=== PATIENT | female | born 1945 | race Caucasian/White ===

== ENCOUNTER 2018-04-16 19:03 | Inpatient (IN) | payer MEDICARE, OTHER, SELFPAY ==
[2018-04-16 19:04] VITALS: BP 109/64; PULSE 99; RESP 16; TEMP 37.3; O2SAT 95; BMI 28.6
--- NOTE | 2018-04-16 19:17 | CT_ITS ---
STUDY: CT ABDOMEN AND PELVIS WITHOUT CONTRAST REASON FOR EXAM: Female, 72 years old. ABD PAIN, N/V, Fever, pt STARTED DIET OF JUST EGGS RECENTLY HX:C-DIFF,PE,SKIN Cancer, back Surgery, bladder REPAIR RADIATION DOSAGE (If Supplied By Facility): CTDIvol = ( 9.38 ) mGy, DLP = ( 417.00 ) mGycm Individualized dose optimization techniques were used for this CT. TECHNIQUE: Transaxial images were obtained from the dome of the diaphragm to the symphysis pubis without oral contrast, and without intravenous contrast. Sagittal and coronal images were reconstructed. COMPARISON: None. FINDINGS: The visualized lung bases are unremarkable. The visualized portions of the heart are within normal limits. Normal liver. Normal gallbladder and extrahepatic biliary system. Normal spleen. Normal pancreas. Normal bilateral adrenal glands. There is mild right hydro nephro ureter. An obstructing stone is not seen. Domonique pelvic cysts of the left kidney. There is a small hiatal hernia. Normal small intestine. Normal colon. There is non-visualization of the appendix. There are calcifications of the abdominal aorta and vascular structures. This is consistent for atherosclerotic disease. There is no abdominal aortic aneurysm. Normal inferior vena cava. Subcentimeter mesenteric lymph nodes. Normal urinary bladder. Normal visualized uterus. There is a small umbilical hernia containing fat. There are degenerative changes of the osseous structures. There is scoliosis of the lumbar spine. Loss of intervertebral disc height at L5-S1. Vacuum disc phenomenon at L5-S1. Spinal fixation hardware is noted. There are laminectomy changes in the spine. This is consistent for previous surgery. CT/Abdomen/Pelvis without Cont IMPRESSION: There is mild right hydro nephro ureter. An obstructing stone is not seen. Question recent passage of a stone. Domonique pelvic cysts of the left kidney. Post surgical changes of the lumbar spine. Other findings as above. Electronically Signed: Buddy Patterson MD at 20:52 EDT , Service support ,
--- NOTE | 2018-04-16 19:18 | RAD_ITS ---
STUDY: X-RAY CHEST REASON FOR EXAM: Female, 72 years old. COUGH TECHNIQUE: Single frontal view of the chest. COMPARISON: November 08, 2015 FINDINGS: Chronic appearing increased interstitial lung markings. There is no demonstrated pleural abnormality. Normal heart size. Normal mediastinum and chano. Normal visualized pulmonary arteries. There is atherosclerotic calcification of the aortic arch with tortuosity. There are diffuse degenerative changes of the visualized thoracic spine. There is degenerative osteoarthritis of the bilateral shoulders. There is no demonstrated abnormality of the visualized soft tissue structures of the upper abdomen. RAD/Chest 1 View (Portable) IMPRESSION: There are no acute findings. Electronically Signed: Buddy Patterson MD at 20:04 EDT , Service support ,
[2018-04-16] MEDS: 0.9% Normal Saline 1,000 ML 1000 ML IV (19:49)
[2018-04-16 20:05] LABS: Absolute Lymphocyte Count 0.56 X10^3/ul (0.83-4.51); Absolute Neutrophil Count 5.7 X10^3/uL (2.0-7.7); Basophil# 0.01 X10^3/uL; Basophil% 0.2 % (0-1); Eosinophil# 0.08 X10^3/uL; Eosinophils% 1.2 % (0-5); Hematocrit 37.6 % (37-47); Hemoglobin 12.6 g/dl (12.0-15.0); Lymphocyte # 0.56 X10^3/ul (4.0); Lymphocyte % 8.7 % (19-41); Mean Corp Hgb Conc 33.5 g/gl (32-36); Mean Corpuscular Hgb 28.8 pg (27.0-32.0); Mean Platelet Vol. 10.6 fl (6.2-12.0); Monocyte# 0.08 X10^3/uL; Monocyte% 1.2 % (0-10); Neutrophil # 5.73 X10^3/uL (2.7-7.7); Neutrophil % 88.5 % (47-70); Platelet Count 133 K/mm3 (150-450); RBC Distribution Width CV 14.7 % (11.6-14.6); RBC Distribution Width SD 46.3 fl (35.1-43.9); Red Blood Count 4.37 M/mm3 (4.2-5.4); White Blood Count 6.5 K/mm3 (4.4-11.0)
[2018-04-16 20:08] LABS: Differential Indicated SCAN CRITERIA MET; POSITIVE COUNT NO; POSITIVE DIFFERENTIAL YES; POSITIVE MORPHOLOGY NO
[2018-04-16 20:11] LABS: ALB/GLOB Ratio 0.9 RATIO (0.9-2.4); AST(SGOT) 26 U/L (15-37); Alanine Aminotransfer ALT/SGPT 25 U/L (13-56); Albumin, Serum 3.2 g/dL (3.2-5.0); Alkaline Phosphatase 76 U/L (45-117); Anion Gap 6 (5-15); BUN 21 mg/dL (7-18); BUN/Creat Ratio 25.5 RATIO (10-20); Calcium,Total 8.3 mg/dL (8.5-10.1); Chloride 105 mmol/L (98-107); Creatinine, Serum 0.82 mg/dL (0.55-1.02); EST Glomerular Filtration Rate 72 mL/min (>60); Est Glom Filt Rate - Afr Amer 87 mL/min (>60); Estimated Creatinine Clearance 49.79 ml/min; Globulin 3.6 g/dL (2.2-4.2); Glucose 98 mg/dL (74-106); Lipase 158 U/L (73-393); Potassium 3.8 mmol/L (3.5-5.1); Protein, Total 6.8 g/dL (6.4-8.2); Sodium Level 139 mmol/L (136-145)
[2018-04-16 20:23] LABS: Lactic Acid 1.2 mmol/L (0.4-2.0)
[2018-04-16 20:31] LABS: Platelet Estimate SLT DEC (ADEQ); Red Cell Morphology NORM C+C NORMAL (NORM C&C)
[2018-04-16 20:42] LABS: Mucous, Urine 0 SEEN /hpf (<or=2+); Red Blood Cells-Urine 0 SEEN /hpf (0-5)
[2018-04-16 20:50] LABS: Color, Urine Yellow (Yellow); Glucose, Dipstick Normal (Normal); Ketone-Dipstick Negative (Negative); Leukocyte Esterase-Dipstick 500 /ul (Negative); Nitrite-Dipstick Positive (Negative); Occult Blood-Urine 250 /ul (Negative); Protein-Dipstick 100 mg/dl (Negative); Urine Bilirubin Dipstick Negative (Negative); Urine Clarity Cloudy (Clear); Urine Urobilinogen Normal (Normal)
[2018-04-16 20:58] LABS: Bacteria 2+ /hpf (None Seen); Squamous Epithelial Cells - UA 0-5 SEEN /hpf (5-10); White Blood Cells >100 SEEN /hpf (0-5)
[2018-04-16] MEDS: Ceftriaxone 1 GM/50 ML BAG IV (21:30)
--- NOTE | 2018-04-16 21:33 | ED.DCSUM_ITS ---
- ER Visit Summary Date of Service: 04/16/18 Chief Complaint: [Is weakness and vomiting] History of Present Illness: The patient is a 72 F [presents to the emergency department with complaint of not feeling well for several days. Patient states that she started vomiting approximately 4 PM today and she threw up about 3 times. She has had chills and Reiger's today as well. Patient had some abdominal pain yesterday but that seems to have mostly resolved today. Patient complains of fever. She denied any urinary symptoms. Patient has had a slight cough. Cough is been nonproductive.] Physical Examination: [HEENT-PERRLA, EOMI. Cranial nerves II through XII grossly intact. TMs clear. Mucous membranes moist. No adenopathy. Cardiovascular-regular rate and rhythm without murmur or ectopy Lungs-clear to auscultation, chest wall stable without crepitus or subcu emphysema Abdomen-normoactive bowel sounds, soft. Patient tender right lower quadrant and suprapubic region. Patient also with some mild CVA tenderness on the right. Extremities-intact ?4, normal range of motion, normal pulses, atraumatic] Test Results: [CBC with differential obtained showing a 6.5, hemoglobin 12.6, hematocrit 38, platelets 133. Patient had 88% segmented neutrophils. Chemistries were normal. Liver enzymes were normal. Lactate was normal at 1.2. Urinalysis was positive for UTI. Chest x-ray showed nothing acute.] CT scan of the abdomen pelvis showed mild right hydronephrosis and hydroureter but no kidney stone noted. Emergency Department Course and Treatment: [Patient was started on Rocephin 1 g IV. Patient was given a liter normal same fluid bolus.] Treatment Plan: [And will be to admit for IV antibiotics as well as hydration.] Disposition: [Admit] Impression: [UTI/pyelonephritis.] This note was generated with [employer] dictation software. It may contain incorrect words, spelling, and punctuation that were not noted in review of the chart prior to signing ED Disposition - Plan for ED Patient: Chief Complaint: Nausea/Vomiting Referrals: Lilo Grullon MD [Primary Care Provider] -
--- NOTE | 2018-04-16 21:46 | PCM.HP.STD ---
Problem List (1) Pyelonephritis Status: Acute (2) Rheumatoid arthritis Status: Chronic Qualifiers: Rheumatoid arthritis location: unspecified site Rheumatoid factor presence: unspecified presence Qualified Code(s): M06.9 - Rheumatoid arthritis, unspecified (3) Chronic back pain Status: Chronic Qualifiers: Back pain location: back pain in unspecified location Back pain laterality: unspecified Qualified Code(s): M54.9 - Dorsalgia, unspecified; G89.29 - Other chronic pain (4) Osteoarthritis Status: Chronic Qualifiers: Osteoarthritis location: unspecified site Osteoarthritis type: unspecified Qualified Code(s): M19.90 - Unspecified osteoarthritis, unspecified site (5) History of Clostridium difficile Status: Chronic (6) Sciatic neuropathy Status: Chronic Qualifiers: Laterality: unspecified laterality Qualified Code(s): G57.00 - Lesion of sciatic nerve, unspecified lower limb (7) Lumbar spondylosis with myelopathy Status: Chronic (8) History of pulmonary embolism Status: Chronic (9) Anxiety and depression Status: Chronic History of Present Illness Date of Admission: 04/16/18 Chief Complaint: N/V, malaise, suprapubic tenderness, F/C The patient is a 72 y/o F w/ PMHx: RA, OA, Anxiety and Depression, Chronic Back Pain, History of Provoked PE who presents to the [facility] ED on 04/16/18 with history of ongoing malaise, fatigue, weakness in addition to suprapubic tenderness and abdominal discomfort x 2 days with onset on day of presentation additionally fevers, chills, nausea with emesis in addition to moderate R flank discomfort. In the ED workup included T 99.1, heart rate 99, BP 109/64, respiratory rate 16, 95% on room air, BC with WBC 6.5, hemoglobin 12.6, platelet 133 with left shift, CMP with BUN 21/creatinine 0.82, lactic acid 1.2, urinalysis concerning for urinary tract infection with pending urine culture per ED in addition to blood culture x2 pending per ED, chest x-ray with no acute findings, CT abdomen pelvis with mild right hydro-nephro ureter with no obstructing stone identified, possibly recently passed stone, peripelvic cyst of the left kidney, postsurgical changes in the lumbar spine. In the ED patient administered normal saline, Zofran, Rocephin. Past Medical History Past Medical History (Chronic Problems): Chronic Problems (Last Updated 03/09/18 @ 07:15 by Lawanda Last MD) Rheumatoid arthritis (Chronic) History of pulmonary embolism (Chronic) Anxiety and depression (Chronic) Chronic back pain (Chronic) Osteoarthritis (Chronic) History of Clostridium difficile (Chronic) Sciatic neuropathy (Chronic) Lumbar spondylosis with myelopathy (Chronic) Compression fx, lumbar spine (Chronic) Medical History: Medical History (Last Updated 03/09/18 @ 07:15 by Lawanda Last MD) Internal hemorrhoid (Acute) K64.8 Rheumatoid arthritis M06.9 Erosion of suburethral sling (Ruled-out) T83.712A Allergies hydrocodone bitartrate [From Vicodin] Adverse Reaction (Verified 04/16/18 19:10) Nausea Metronidazole HCl [From Flagyl] Adverse Reaction (Verified 04/16/18 19:10) Other oxycodone HCl [From Percocet] Adverse Reaction (Verified 04/16/18 19:10) Nausea scopolamine Adverse Reaction (Verified 04/16/18 19:10) Other Home Medications: Ambulatory Orders Medication Instructions Recorded Calcium Carb/Vitamin D 1,000 mg PO BIDCM 10/13/14 [Caltrate-600 With Vit D Tab] Multivitamins,Therapeutic 1 tab PO DAILY 10/13/14 [Multivitamin] Aspirin E.C. [Ecotrin] 325 mg PO BIDCM #40 tab 11/01/14 Biotin 5,000 mcg PO DAILY 03/28/17 Turmeric/Turmeric Root Extract 1 ea PO DAILY 03/28/17 [Turmeric 450-50 mg Capsule] duloxetine 30 mg capsule,delayed 30 mg PO BID 02/26/18 release Surgical History: Surgical History (Last Updated 03/09/18 @ 07:15 by Lawanda Last MD) history of bladder sling Surgical History: - - Total knee replacement, significant back surgery including cervical, thoracic and lumbar regions, left shoulder surgery, tonsillectomy, bladder surgery, bilateral carpal tunnel surgery, right thigh skin cancer resection. Psychiatric History: Anxiety, Depression DIRECTOR OF INTELLIGENCE History: No pertinent DIRECTOR OF INTELLIGENCE history Lives: Spouse/ Significant Other Smoking Status: Never smoker Tobacco Use: Non-smoker Alcohol: None Drugs: None - *Family History Maternal History Items: - - age 87 Paternal History Items: - - age 95, CHF, respiratory Offspring History Items: - - 4 children, 12 greandchildren, 4 great grandchildren, in good health Review of Systems Constitutional: Reports: Chills, Fever, Malaise, Weakness, Fatigue. Denies: Weight Change HEENT: Denies: Head Aches, Sinus Congestion, Sinus Drainage Cardiovascular: Denies: Chest Pain, Palpitations Respiratory: Denies: Cough, Shortness of breath at rest, Sputum production Gastrointestinal: Reports: Abdominal Pain, Nausea, Vomiting Genitourinary: Reports: - - Pubic tenderness.. Denies: Dysuria Musculoskeletal: Reports: Back Pain, Joint stiffness. Denies: Joint Pain, Joint Tenderness Skin: Denies: Rash, Wounds Neurological: Denies: Numbness, Tingling, Focal weakness Psychiatric: Reports: Anxiety, Depression. Denies: Homicidal Ideations, Suicidal Ideations Hematologic/ Lymphatic: Denies: Easy Bruising, Easy Bleeding VTE Information - Inpt Only VTE Present on Admission: No VTE Mechan Device Prophylaxis: SCD's VTE Pharm Prophylaxis ordered?: Yes Patient Problems: Active and Suspected Problems (Last Updated 03/09/18 @ 07:15 by Lawanda Last MD) Pyelonephritis (Acute) Subjective: Seated upright in the ED bed, notes feeling notably improved since initial ED presentation but still having suprapubic tenderness. Does note that her appetite is returning and she is eager for food currently. Objective: Physical Examination: General: awake, alert, oriented x 3 and cooperative, seated upright in the ED bed in no apparent distress. Skin: normal color, turgor, no icterus, cyanosis. HEENT: AT/NC, EOMI, PERRLA, mild to moderately dry MM, no carotid bruits or JVD noted. Lungs: CTA bilaterally, moderate effort, mild decrease BL bases, no rales, ronchi or wheezing. Heart: Regular rate and rhythm; no gallop, rub audible. Abdomen: soft, suprapubic TTP otherwise generally NTTP, ND, mildly hyperactive BS, no HSM. Extremities: no cyanosis, clubbing, or edema. Neurological: patient awake, alert, oriented x 3; cognitive function intact; pupils equally reactive to light and accomodation; cranial nerves II-XII grossly normal, moving all 4 extremities, no focal deficits, strength moderately globally decreased secondary to acute presentation. Psychiatric: affect appears fatigued, no acute evidence of depressive or anxiety feelings. - Physical Exam Vital Signs Temp Pulse Resp BP Pulse Ox 99.1 F 99 16 109/64 95 04/16/18 19:04 04/16/18 19:04 04/16/18 19:04 04/16/18 19:04 04/16/18 19:04 Weight: 161 lb 9.581 oz Body Mass Index (BMI) 28.6 Laboratory Tests Past 24 Hrs 04/16/18 04/16/18 04/16/18 19:25 19:25 19:45 WBC 6.5 RBC 4.37 Hgb 12.6 Hct 37.6 MCV 86.0 MCH 28.8 MCHC 33.5 RDW 14.7 H RDW Differential 46.3 H Plt Count 133 L MPV 10.6 Immature Gran % (Auto) 0.200 Neut % (Auto) 88.5 H Lymph % (Auto) 8.7 L [place] % (Auto) 1.2 Eos % (Auto) 1.2 Baso % (Auto) 0.2 Absolute Neuts (auto) 5.7 Absolute Lymphs (auto) 0.56 L Total Counted Not Reportable Differential Comment SEE COMMENT Platelet Estimate SLT DEC RBC Morphology NORM C+C Sodium 139 Potassium 3.8 Chloride 105 Carbon Dioxide 28.0 Anion Gap 6 BUN 21 H Creatinine 0.82 Estim Creat Clear Calc 49.79 Est GFR (MDRD) Af Amer 87 Est GFR (MDRD) Non-Af 72 BUN/Creatinine Ratio 25.5 H Glucose 98 Lactic Acid 1.2 Calcium 8.3 L Total Bilirubin 0.50 AST 26 ALT 25 Alkaline Phosphatase 76 Total Protein 6.8 Albumin 3.2 Globulin 3.6 Albumin/Globulin Ratio 0.9 Lipase 158 Urine Color Urine Clarity Urine pH Ur Specific [place] Urine Protein Urine Glucose (UA) Urine Ketones Urine Occult Blood Urine Nitrite Urine Bilirubin Urine Urobilinogen Ur Leukocyte Esterase Urine RBC Urine WBC Ur Squamous Epith Cells Urine Bacteria Urine Mucus 04/16/18 20:37 WBC RBC Hgb Hct MCV MCH MCHC RDW RDW Differential Plt Count MPV Immature Gran % (Auto) Neut % (Auto) Lymph % (Auto) [place] % (Auto) Eos % (Auto) Baso % (Auto) Absolute Neuts (auto) Absolute Lymphs (auto) Total Counted Differential Comment Platelet Estimate RBC Morphology Sodium Potassium Chloride Carbon Dioxide Anion Gap BUN Creatinine Estim Creat Clear Calc Est GFR (MDRD) Af Amer Est GFR (MDRD) Non-Af BUN/Creatinine Ratio Glucose Lactic Acid Calcium Total Bilirubin AST ALT Alkaline Phosphatase Total Protein Albumin Globulin Albumin/Globulin Ratio Lipase Urine Color Yellow Urine Clarity Cloudy Urine pH 7.0 Ur Specific [place] 1.010 Urine Protein 100 H Urine Glucose (UA) Normal Urine Ketones Negative Urine Occult Blood 250 H Urine Nitrite Positive H Urine Bilirubin Negative Urine Urobilinogen Normal Ur Leukocyte Esterase 500 H Urine RBC 0 SEEN Urine WBC >100 SEEN Ur Squamous Epith Cells 0-5 SEEN Urine Bacteria 2+ Urine Mucus 0 SEEN Assessment/Plan All Active Problems (Last Updated 03/09/18 @ 07:15 by Lawanda Last MD) Pyelonephritis (Acute) Internal hemorrhoid (Acute) Status post total right knee replacement (Acute) Erosion of suburethral sling (Ruled-out) The patient is a 72 y/o F w/ PMHx: RA, OA, Anxiety and Depression, Chronic Back Pain, History of Provoked PE who presents to the [facility] ED on 04/16/18 with history of ongoing malaise, fatigue, weakness in addition to suprapubic tenderness and abdominal discomfort x 2 days with onset on day of presentation additionally fevers, chills, nausea with emesis in addition to moderate R flank discomfort. (1) Acute Urinary Tract Infection, Possible Pyelonephritis w/ Mild R Hydronephroureter: Will admit to [facility] upon ED evaluation remarkable, pending UCx, continue IVFs, monitor I/Os, continue IV Rocephin w/ transition as able pending sensitivities and speciation. Bld cx x 2 obtained in the ED. Initiate clears and ADAT if nausea, emesis improved. Fall precautions. PT/OT for discharge planning. (2) History of Provoked PE: Noted 1-2 years prior and was after a procedure. (3) Anxiety and Depression: Continue home duloxetine regimen. (4) Chronic Back Pain: Fall precautions, position changes, PT/OT consulted as noted. (5) DVT Prophylaxis: SCDs, lovenox. Code Visit Inpatient E&M: 95039 Init Hosp L3
[2018-04-16 22:08] VITALS: BP 106/80; PULSE 85; RESP 16; O2SAT 96
[2018-04-16 22:58] VITALS: RESP 18; BMI 27.1
[2018-04-16 23:05] VITALS: BP 94/50; PULSE 85; RESP 16; TEMP 36.9; O2SAT 97
[2018-04-16 23:12] VITALS: BMI 27.2
[2018-04-16] MEDS: DULoxetine Hcl 30 MG Capsule PO (23:35)
[2018-04-16] MEDS: 0.9% Normal Saline 1,000 ML 125 ML IV (23:35)
[2018-04-17 05:00] VITALS: BP 93/51; PULSE 64; RESP 16; TEMP 36.6; O2SAT 96
[2018-04-17 06:25] LABS: Anion Gap 5 (5-15); BUN 18 mg/dL (7-18); BUN/Creat Ratio 23.1 RATIO (10-20); Calcium,Total 7.9 mg/dL (8.5-10.1); Chloride 111 mmol/L (98-107); Creatinine, Serum 0.78 mg/dL (0.55-1.02); EST Glomerular Filtration Rate 77 mL/min (>60); Est Glom Filt Rate - Afr Amer 93 mL/min (>60); Estimated Creatinine Clearance 40.83 ml/min; Glucose 98 mg/dL (74-106); Sodium Level 142 mmol/L (136-145)
[2018-04-17 06:26] LABS: Absolute Lymphocyte Count 1.84 X10^3/ul (0.83-4.51); Absolute Neutrophil Count 6.2 X10^3/uL (2.0-7.7); Basophil# 0.02 X10^3/uL; Basophil% 0.2 % (0-1); Eosinophil# 0.11 X10^3/uL; Eosinophils% 1.3 % (0-5); Hematocrit 35.4 % (37-47); Hemoglobin 11.7 g/dl (12.0-15.0); Lymphocyte # 1.84 X10^3/ul (4.0); Mean Corp Hgb Conc 33.1 g/gl (32-36); Mean Corpuscular Hgb 28.7 pg (27.0-32.0); Mean Platelet Vol. 10.8 fl (6.2-12.0); Monocyte# 0.63 X10^3/uL; Monocyte% 7.2 % (0-10); Neutrophil # 6.15 X10^3/uL (2.7-7.7); Neutrophil % 70.1 % (47-70); Platelet Count 151 K/mm3 (150-450); RBC Distribution Width CV 15.1 % (11.6-14.6); Red Blood Count 4.07 M/mm3 (4.2-5.4); White Blood Count 8.8 K/mm3 (4.4-11.0)
[2018-04-17 06:29] LABS: POSITIVE COUNT NO; POSITIVE DIFFERENTIAL NO; POSITIVE MORPHOLOGY NO
--- NOTE | 2018-04-17 07:22 | NURSING ---
Informed Dr. santos Of positive blood cultures.
[2018-04-17 07:29] VITALS: O2SAT 95
[2018-04-17] MEDS: 0.9% Normal Saline 1,000 ML 125 ML IV (07:32)
[2018-04-17] MEDS: Aspirin E.C. 81 MG Tablet PO (07:32)
[2018-04-17 08:20] VITALS: BP 101/57; PULSE 82; RESP 16; TEMP 36.6; O2SAT 97
[2018-04-17] MEDS: Enoxaparin 40 MG/0.4 ML Syringe SC (08:31)
[2018-04-17] MEDS: Ceftriaxone 1 GM/50 ML BAG IV (10:49)
--- NOTE | 2018-04-17 10:54 | PN_ITS ---
Patient Problems: Active and Suspected Problems (Last Updated 03/09/18 @ 07:15 by Lawanda Last MD) Pyelonephritis (Acute) Subjective: Patient was seen and examined today, she does not complain of any chills or diaphoresis, patient's blood culture was positive for gram-negative suzy-this is probably going to be a E. coli. Patient is currently on IV Rocephin. I have stopped the patient's fluids today because she is drinking fluids without a problem. - Physical Exam General: Alert, Oriented x3, Cooperative, No apparent distress, Well developed, Well nourished HEENT: Atraumatic, PERRLA, EOMI, Normocephalic Oral: Moist Mucosa Neck: Supple, No Nuchal Rigidity, Trachea Midline, Thyroid Normal Size and Texture Lungs: Clear to auscultation, Normal air movement, No rhonchi, No wheeze, No rales Cardiovascular: Regular rate, Regular Rhythm, Normal S1, Normal S2, No murmurs, No Ectopic Activity, PMI Normal, No rub noted, No Gallop Abdomen: Bowel Sounds Present, Soft, Non Tender, Non-Distended Extremities: No edema, Capillary Refill Less than 3 Seconds Skin: No rashes, No breakdown Neurological: Cranial nerves II-XII grossly intact, Neuro grossly intact, Sensory exam intact to light touch and pain, Coordination normal Psych/Mental Status: Normal Affect, Appropriate, Alert and oriented to time, place, person, mood and affect Vital Signs Temp Pulse Resp BP Pulse Ox 97.8 F 82 16 101/57 L 97 04/17/18 08:20 04/17/18 08:20 04/17/18 08:20 04/17/18 08:20 04/17/18 08:20 Oxygen Delivery Method Room Air Weight: 70.7 kg Body Mass Index (BMI) 27.1 Intake and Output for Last 24 Hours 04/15/18 04/16/18 04/17/18 23:59 23:59 23:59 Intake Total 1002 / 1002 Balance 1002 / 1002 Microbiology Past 72 Hours 04/16/18 19:45 Blood Culture - Preliminary Blood Culture (Wb) - Right Wrist Laboratory Tests Past 24 Hrs 04/16/18 04/16/18 04/16/18 19:25 19:25 19:45 WBC 6.5 RBC 4.37 Hgb 12.6 Hct 37.6 MCV 86.0 MCH 28.8 MCHC 33.5 RDW 14.7 H RDW Differential 46.3 H Plt Count 133 L MPV 10.6 Immature Gran % (Auto) 0.200 Neut % (Auto) 88.5 H Lymph % (Auto) 8.7 L [place] % (Auto) 1.2 Eos % (Auto) 1.2 Baso % (Auto) 0.2 Absolute Neuts (auto) 5.7 Absolute Lymphs (auto) 0.56 L Total Counted Not Reportable Differential Comment SEE COMMENT Platelet Estimate SLT DEC RBC Morphology NORM C+C Sodium 139 Potassium 3.8 Chloride 105 Carbon Dioxide 28.0 Anion Gap 6 BUN 21 H Creatinine 0.82 Estim Creat Clear Calc 49.79 Est GFR (MDRD) Af Amer 87 Est GFR (MDRD) Non-Af 72 BUN/Creatinine Ratio 25.5 H Glucose 98 Lactic Acid 1.2 Calcium 8.3 L Total Bilirubin 0.50 AST 26 ALT 25 Alkaline Phosphatase 76 Total Protein 6.8 Albumin 3.2 Globulin 3.6 Albumin/Globulin Ratio 0.9 Lipase 158 Urine Color Urine Clarity Urine pH Ur Specific [place] Urine Protein Urine Glucose (UA) Urine Ketones Urine Occult Blood Urine Nitrite Urine Bilirubin Urine Urobilinogen Ur Leukocyte Esterase Urine RBC Urine WBC Ur Squamous Epith Cells Urine Bacteria Urine Mucus 04/16/18 04/17/18 04/17/18 20:37 05:40 05:40 WBC 8.8 RBC 4.07 L Hgb 11.7 L Hct 35.4 L MCV 87.0 MCH 28.7 MCHC 33.1 RDW 15.1 H RDW Differential 48.0 H Plt Count 151 MPV 10.8 Immature Gran % (Auto) 0.200 Neut % (Auto) 70.1 H Lymph % (Auto) 21.0 [place] % (Auto) 7.2 Eos % (Auto) 1.3 Baso % (Auto) 0.2 Absolute Neuts (auto) 6.2 Absolute Lymphs (auto) 1.84 Total Counted Not Reportable Differential Comment Platelet Estimate RBC Morphology Sodium 142 Potassium 4.0 Chloride 111 H Carbon Dioxide 26.0 Anion Gap 5 BUN 18 Creatinine 0.78 Estim Creat Clear Calc 40.83 Est GFR (MDRD) Af Amer 93 Est GFR (MDRD) Non-Af 77 BUN/Creatinine Ratio 23.1 H Glucose 98 Lactic Acid Calcium 7.9 L Total Bilirubin AST ALT Alkaline Phosphatase Total Protein Albumin Globulin Albumin/Globulin Ratio Lipase Urine Color Yellow Urine Clarity Cloudy Urine pH 7.0 Ur Specific [place] 1.010 Urine Protein 100 H Urine Glucose (UA) Normal Urine Ketones Negative Urine Occult Blood 250 H Urine Nitrite Positive H Urine Bilirubin Negative Urine Urobilinogen Normal Ur Leukocyte Esterase 500 H Urine RBC 0 SEEN Urine WBC >100 SEEN Ur Squamous Epith Cells 0-5 SEEN Urine Bacteria 2+ Urine Mucus 0 SEEN Medical Necessity - Tobacco Use Smoking Status: Never smoker Tobacco Use: Non-smoker Assessment/Plan All Active Problems (Last Updated 03/09/18 @ 07:15 by Lawanda Last MD) Pyelonephritis (Acute) Internal hemorrhoid (Acute) Status post total right knee replacement (Acute) Erosion of suburethral sling (Ruled-out) #1 bacteremia with gram-negative suzy-probably E. coli, continue Rocephin, again I do not think patient needs IV fluids #2 pyelonephritis with gram-negative bacteria-probable E. coli-continue present treatment #3 degenerative joint disease of the lumbar spine #4 osteoarthritis Code Visit Inpatient E&M: 22708 Subs Hosp L2
--- NOTE | 2018-04-17 11:13 | CASEMGMT ---
RN CM Assessment completed. See Link. DC Plan: Home -Intro role of CM to patient in room. Pt states she is independent and no needs identified.
[2018-04-17 11:17] VITALS: O2SAT 95
[2018-04-17 13:45] VITALS: BP 115/74; PULSE 74; RESP 16; TEMP 36.6; O2SAT 96
--- NOTE | 2018-04-17 16:12 | CHAPLAIN ---
Type of Pastoral Visit _x__ Initial Visit ___ Follow-up Visit ___ On-call Visit ___ General Patient Visit ___ Spiritual Assessment ___ Family Conference ___ Bereavement ___ Rapid Response ___ Code Blue ___ Other (describe below) Pastoral Care Referral From _x__ Patient ___ Family ___ Nurse ___ Physician ___ Custom Feed Mill Operator ___ Nursing Program Chair ___ Other (describe below) Sacrament/Intervention _x__ Active listening ___ Anointing ___ Orthodox ___ Bereavement ___ Communion _x__ Jen exploration ___ _x__ Life review _x__ Prayer ___ Reconciliation ___ Sacrament of Sick ___ Supportive presence ___ Wedding ___ Other (describe below) Pastoral Comments called the hoahaoism for patient at her request
[2018-04-17] MEDS: Acetaminophen 325 MG Tablet 650 MG PO (17:44)
[2018-04-17 20:11] VITALS: BP 120/63; PULSE 65; RESP 16; TEMP 36.4; O2SAT 98
[2018-04-17] MEDS: DULoxetine Hcl 30 MG Capsule PO (21:21)
[2018-04-18 03:06] VITALS: BP 110/68; PULSE 70; RESP 16; TEMP 36.7; O2SAT 97
[2018-04-18] MEDS: 0.9% NaCl Peripheral Flush Adult/Peds IV ×2 (06:22→08:20)
[2018-04-18 08:15] VITALS: BP 127/68; PULSE 83; RESP 18; TEMP 36.6; O2SAT 96
[2018-04-18] MEDS: Enoxaparin 40 MG/0.4 ML Syringe SC (08:18)
[2018-04-18] MEDS: Aspirin E.C. 81 MG Tablet PO (08:18)
[2018-04-18] MEDS: Ceftriaxone 1 GM/50 ML BAG IV (08:20)
--- NOTE | 2018-04-18 09:32 | PCM.DC ---
- Discharge Diagnoses Current Active Problems: Current Active and Chronic Problems (Last Updated 04/17/18 @ 10:54 by Galdino Mccracken DO) Rheumatoid arthritis (Chronic) Pyelonephritis (Acute) History of pulmonary embolism (Chronic) Anxiety and depression (Chronic) You will use the following diet at home:: No restrictions Your food should be the consistency of: Regular Your liquids should be the consistency of: Regular/Thin Discharge Activity: Return to Normal Activity Weight Bearing Status: Full weight bearing Allergies/Adverse Reactions: Allergies hydrocodone bitartrate [From Vicodin] Adverse Reaction (Verified 04/16/18 19:10) Nausea Metronidazole HCl [From Flagyl] Adverse Reaction (Verified 04/16/18 19:10) Other oxycodone HCl [From Percocet] Adverse Reaction (Verified 04/16/18 19:10) Nausea scopolamine Adverse Reaction (Verified 04/16/18 19:10) Other Medications to take at Discharge Calcium Carb/Vitamin D [Caltrate-600 With Vit D Tab] 1,000 mg PO BIDCM 10/13/14 Multivitamins,Therapeutic [Multivitamin] 1 tab PO DAILY 10/13/14 Biotin 5,000 mcg PO DAILY 03/28/17 Turmeric/Turmeric Root Extract [Turmeric 450-50 mg Capsule] 1 ea PO DAILY 03/28/17 duloxetine 30 mg capsule,delayed release 30 mg PO QHS 02/26/18 Aspirin [Aspirin, Baby] 81 mg PO DAILY 04/16/18 Acetaminophen [Tylenol Tablet] 650 mg PO Q6H PRN PRN tablet 04/18/18 Aspirin E.C. [Ecotrin] 81 mg PO DAILY@0800 tablet 04/18/18 Cephalexin [Keflex] 500 mg PO TID #24 capsule 04/18/18 The following prescriptions were given: Cephalexin [Keflex] 500 mg PO TID #24 capsule Primary Care Physician: Lilo Grullon MD [Primary Care Provider] - Please follow up with your Primary Care Physician in: late next week for follow up Test Results: Test results from this visit will be discussed in further detail at your follow-up appointment, if applicable.
--- NOTE | 2018-04-18 09:34 | PCM.DC.SUM ---
Discharge Date and Diagnosis - Problem List Patient Problems: Active and Suspected Problems (Last Updated 04/17/18 @ 10:54 by Galdino Mccracken DO) Pyelonephritis (Acute) Date of Admission: 04/16/18 Date of Discharge: 04/18/18 - Primary Discharge Diagnosis Active and Suspected Problems (Last Updated 04/17/18 @ 10:54 by Galdino Mccracken DO) #1 bacteremia with E. coli from cystitis #2 pyelonephritis with E. coli #3 degenerative joint disease of the lumbar spine #4 osteoarthritis - Secondary Discharge Diagnosis Chronic Problems (Last Updated 04/17/18 @ 10:54 by Galdino Mccracken DO) Rheumatoid arthritis (Chronic) History of pulmonary embolism (Chronic) Anxiety and depression (Chronic) Chronic back pain (Chronic) Osteoarthritis (Chronic) History of Clostridium difficile (Chronic) Sciatic neuropathy (Chronic) Lumbar spondylosis with myelopathy (Chronic) Compression fx, lumbar spine (Chronic) Hospital Course and Treatment Operations: None Procedures: None Summary of Care Provided: The patient is a 72 year old F who was seen in the emergency room at [facility] with a chief complaint of malaise times several days vomiting and generalized weakness. Workup in the emergency room included a CBC which showed a normal white blood cell count, blood chemistries were normal, urinalysis was grossly positive indicating a urinary tract infection. Chest x-ray showed nothing acute, CT of the abdomen and pelvis showed a mild right hydronephrosis and question whether patient could have passed a stone recently but there was no evidence of any other pathology. Patient was felt to have pyelonephritis, she was given IV Rocephin and admitted to [place] [id number] on IV fluids. The following day, patient's CBC was repeated and white blood cell count remained normal. Patient was able to take fluids and IV fluids were stopped. Results from her blood culture was positive for a gram-negative bacteria indicating probable E. coli, at the time of her discharge on 04/18/18, sensitivities were not back for the organism but the patient had remained afebrile and looked well enough to be discharged. On 04/18/18, patient was seen and examined: On examination she appeared in good health and spirits. Vital signs as documented. Skin warm and dry and without overt rashes. Neck without JVD. Lungs clear. Heart exam notable for regular rhythm, normal sounds and absence of murmurs, rubs or gallops. Abdomen unremarkable and without evidence of organomegaly, masses, or abdominal aortic enlargement. Extremities nonedematous. Neuro: Cranial nerves II through XII grossly intact, no focal motor deficits were noted, sensation was intact to light touch and pinprick. Psych: Patient was alert and oriented x3, she did not appear depressed or agitated. On 04/18/18, patient was felt to be stable for discharge home. Instructions were given to the patient Discharge Activity: Return to Normal Activity Weight Bearing Status: Full weight bearing Home Medications: Medications to take at Discharge Calcium Carb/Vitamin D [Caltrate-600 With Vit D Tab] 1,000 mg PO BIDCM 10/13/14 Multivitamins,Therapeutic [Multivitamin] 1 tab PO DAILY 10/13/14 Biotin 5,000 mcg PO DAILY 03/28/17 Turmeric/Turmeric Root Extract [Turmeric 450-50 mg Capsule] 1 ea PO DAILY 03/28/17 duloxetine 30 mg capsule,delayed release 30 mg PO QHS 02/26/18 Aspirin [Aspirin, Baby] 81 mg PO DAILY 04/16/18 Acetaminophen [Tylenol Tablet] 650 mg PO Q6H PRN PRN tablet 04/18/18 Aspirin E.C. [Ecotrin] 81 mg PO DAILY@0800 tablet 04/18/18 Cephalexin [Keflex] 500 mg PO TID #24 capsule 04/18/18 Following Prescrptions Were Given to Patient: Cephalexin [Keflex] 500 mg PO TID #24 capsule Primary Care Physician: Lilo Grullon MD [Primary Care Provider] - Please follow up with your Primary Care Physician in: late next week for follow up Disposition: Home Minutes spent on discharge:: 32 Patient Condition:: Stable Medical Necessity - Tobacco Use Smoking Status: Never smoker Tobacco Use: Non-smoker Meaningful Use Info Meaningful Use Diagnoses (Choose all that apply): None applicable Code Visit Inpatient E&M: 06963 Disch Hosp
--- NOTE | 2018-04-20 14:52 | CASEMGMT ---
RN CM DC NOTE DC DATE: 04/18/18 LACE/STRATA: 04/22 DC Disposition: Home Call to home phone. no answer, machine did not spanish moss picker.
== END 2018-04-18 12:15 | disposition home or self-care (01) | DRG 690 ==
LOC: ED 22:05 → MS2 22:15
PROVIDERS: Admitting Provider Family Medicine; Emergency Provider Emergency Medicine; Family Provider Family Medicine; PCP Family Medicine; Visit Provider Internal Medicine
DX: N30.90 Cystitis, unspecified without hematuria (principal); N12 Tubulo-interstitial nephritis, not specified as acute or chronic; R78.81 Bacteremia; M47.16 Other spondylosis with myelopathy, lumbar region; N13.6 Pyonephrosis; G89.29 Other chronic pain; M54.9 Dorsalgia, unspecified; B96.20 Unspecified Escherichia coli [E. coli] as the cause of diseases classified elsewhere; M19.90 Unspecified osteoarthritis, unspecified site; M06.9 Rheumatoid arthritis, unspecified; Z86.711 Personal history of pulmonary embolism; F41.9 Anxiety disorder, unspecified; F32.9 Major depressive disorder, single episode, unspecified; Z23 Encounter for immunization
CPT/HCPCS: 36415; 71045; 74176; 80048; 80053; 81001; 83605; 83690; 85025; 87040; 87077; 87086; 87186; 97162; 99285; J7030; J7050; 90686; A4216; J2405

== ENCOUNTER → 2018-05-06 14:48 | Outpatient (CLI) | payer MEDICARE, OTHER, SELFPAY | PROVIDERS: Family Provider Family Medicine; PCP Family Medicine; Visit Provider Family Medicine | DX: R69 Illness, unspecified (principal) ==

== ENCOUNTER → 2018-05-07 10:19 | Outpatient (CLI) | payer MEDICARE, OTHER, SELFPAY | PROVIDERS: Family Provider Family Medicine; PCP Family Medicine; Referring Provider Surgery; Visit Provider Surgery | DX: R19.5 Other fecal abnormalities (principal) | CPT/HCPCS: 83630; 87506 ==

== ENCOUNTER → 2018-09-15 15:44 | Outpatient (CLI) | payer MEDICARE, OTHER, SELFPAY ==
--- NOTE | 2018-09-15 15:47 | VDLE_ITS ---
Reason For Study: edema RIGHT LEFT GSV is normal. CFV is compressible, spontaneous, phasic, CFV is compressible, spontaneous, phasic, competent, and demonstrates normal competent and demonstrates normal augmentation. augmentation. FV is compressible, spontaneous, phasic, competent and demonstrates normal augmentation. POP V is compressible, spontaneous, phasic, competent and demonstrates normal augmentation. T/P Trunk is compressible. PTV is compressible. RT PerV is compressible. Hypoechoic area in the right groin measuring 1.09 x 2.53 cm in short. Area is nonvascular. Procedure Exam performed in department. The exam was diagnostic. A preliminary report was called and/or faxed to Dr. Grullon's office. Interpretation Summary Deep veins of the right lower extremity are patent and compressible segmentally. There is no evidence of right lower extremity deep vein thrombosis. Valvular competence appears intact within the proximal deep venous system on the right . The right greater saphenous vein appears patent and compressible segmentally. A non-vascular, hypoechoic structure is noted in the right groin, measuring 1.09 cm x 2.53 cm. This may represent a seroma. Clinical correlation is advised. Ordering Physician: Lilo Grullon Performed By: Rylan Cobos RVT
== END ==
PROVIDERS: Family Provider Family Medicine; PCP Family Medicine; Referring Provider Family Medicine; Visit Provider Family Medicine
DX: R60.0 Localized edema (principal); S76.211D Strain of adductor muscle, fascia and tendon of right thigh, subsequent encounter
CPT/HCPCS: 93971; 97162; 97530

== ENCOUNTER 2018-09-17 10:00 | Outpatient (RCR) | payer MEDICARE, OTHER, SELFPAY ==
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
--- NOTE | 2018-10-08 11:09 | HP.PT.NRP ---
HP - Discharge Summary (1) - Patient Information CHRISTIAN ANNA was seen in my office for initial evaluation on 09/15/18. The following Plan of Care was established for this patient: Initial Frequency: 2x /Week Initial Duration: 6 Weeks - Anticipated Interventions Patient/Client Instruction: Educate patient on: Condition, Plan of Care, Risk Factors, Benefits of Fitness Program For the Purpose of:: To improve self management Therapeutic Exercise to Include: Strength training, Balance training, Body mechanics, Postural training, Flexibilty training, Gait and locomotor training, In an aquatic setting, Active ROM, Dynamic Lumbar Stabilization For the Purpose of:: To decrease pain, To decrease swelling/inflammation, To increase ROM, To improve muscle performance and motor function, To increase tolerance to activity/condition/position, To improve ability of physical actions for home/community/work/leisure, To improve gait and locomotor functions This patient was last seen in our office . Pertinent comments regarding their Physical therapy will appear below: I RECEIVED A MESSAGE FROM THE FOOD SERVICE CASHIER STATING TALISHA CALLED TO LET US KNOW SHE NEEDS A TOTAL HIP REPLACEMENT. I WILL DISCHARGE HER CURRENT CHART AT THIS TIME BUT WE WOULD BE HAPPEY TO RESUME PT POST HIP REPLACEMENT. At this point I will be discontinuing this patient from physical therapy. I would be happy to see this patient again in the future if found appropriate by the physician. Thank you! Mary Anne Ley, PT, Cert MDT
== END 2018-09-17 19:00 | disposition home or self-care (01) ==
LOC: PT 10:00
PROVIDERS: Family Provider Family Medicine; PCP Family Medicine; Referring Provider Family Medicine; Visit Provider Family Medicine
DX: S76.211D Strain of adductor muscle, fascia and tendon of right thigh, subsequent encounter (principal)
CPT/HCPCS: 97110; 97162; 97530

== ENCOUNTER 2018-09-17 14:09 | Emergency (ER) | payer MEDICARE, OTHER, SELFPAY ==
[2018-09-17 14:10] VITALS: BP 102/62; PULSE 93; RESP 16; TEMP 36.6; O2SAT 96; BMI 27.4
--- NOTE | 2018-09-17 15:11 | RAD_ITS ---
STUDY: X-RAY - LUMBAR SPINE REASON FOR EXAM: Female, 73 years old. Atraumatic pain. TECHNIQUE: 3 view(s) of the lumbar spine were obtained. COMPARISON: June 02, 2014. FINDINGS: Normal lumbar lordosis. There is a stable dextroscoliosis. There is stable slight retrolisthesis of L1 on L2. There is fusion of L2-S1. The pedicle screws and stabilization rods are intact and unchanged in position. There is generalized demineralization of the vertebral bodies. There is minimal stable endplate spondylosis. There is disc space narrowing most marked at L5-S1 which appear unchanged from prior exam. There is no evidence of acute fracture or loss of vertebral axial height.. The soft tissue structures are unremarkable. RAD/Lumbar Spine 2 or 3 Views IMPRESSION: L2-S1 fusion, unchanged from the previous examination. There are stable degenerative changes and dextroscoliosis. Electronically Signed: Juan Hernandez DO at 16:11 EST Tel [phone], Service support ,
--- NOTE | 2018-09-17 15:16 | ED.VISSUMM ---
- ER Visit Summary Date of Service: 09/17/18 Chief Complaint: Atraumatic right hip, back and thigh pain History of Present Illness: The patient is a 73 F complaining of atraumatic back, right hip and thigh pain. She denies any type of fall or trauma. No fever. Minimal swelling to her knee area. She has had a prior right total knee. She had a noninvasive study of the right leg yesterday which was negative for blood clot. Her past medical history includes rheumatoid arthritis, pulmonary emboli and bilateral lower extremity neuropathies. She states the pain is been going on now for about 6 weeks. It has been chronic. Worse with movement. Physical Examination: Older female no acute distress. Vital signs are stable and afebrile. HEENT exam unremarkable. Neck nontender no lymphadenopathy. Lungs clear to auscultation bilaterally. Heart regular rate and rhythm no murmur. Abdomen is soft and nontender. Normal bowel sounds without peritoneal signs. Extremities the patient is moving all 4. They are neurovascular intact. She has full flexion of both hips knees and ankles. Back itself is nontender. No spine tenderness. No SI tenderness. Neurologically she is awake and alert. She is decreased sensation in both feet from chronic neuropathies. She has normal motor strength with both lower extremities. She is awake and alert. Test Results: LS spine x-ray shows chronic degenerative changes. And prior spinal rods placed. No significant change from prior. Pelvis and right hip x-ray shows degenerative changes of the right hip femoral head that is most likely from arthritis but cannot rule out avascular necrosis. No acute fracture. Both of these films are read by myself and the radiologist. Emergency Department Course and Treatment: Exam no change. I went over the x-rays with the patient. She does not want anything for pain. She will use Tylenol and/or Motrin. She is to follow-up with Dr. Andres Lynn her orthopedic surgeon who did her knee surgery. Treatment Plan: Follow-up. Disposition: Discharge Impression: Hip and back pain secondary to degenerative arthritis of the right hip This note was generated with [employer] dictation software. It may contain incorrect words, spelling, and punctuation that were not noted in review of the chart prior to signing ED Disposition - Plan for ED Patient: Referrals: Lilo Grullon MD [Primary Care Provider] -
--- NOTE | 2018-09-17 15:19 | ED.DCSUM_ITS ---
- ER Visit Summary Date of Service: 09/17/18 Chief Complaint: Atraumatic right hip, back and thigh pain History of Present Illness: The patient is a 73 F complaining of atraumatic back, right hip and thigh pain. She denies any type of fall or trauma. No fever. Minimal swelling to her knee area. She has had a prior right total knee. She had a noninvasive study of the right leg yesterday which was negative for blood clot. Her past medical history includes rheumatoid arthritis, pulmonary emboli and bilateral lower extremity neuropathies. She states the pain is been going on now for about 6 weeks. It has been chronic. Worse with movement. Physical Examination: Older female no acute distress. Vital signs are stable and afebrile. HEENT exam unremarkable. Neck nontender no lymphadenopathy. Lungs clear to auscultation bilaterally. Heart regular rate and rhythm no murm ur. Abdomen is soft and nontender. Normal bowel sounds without peritoneal signs. Extremities the patient is moving all 4. They are neurovascular intact. She has full flexion of both hips knees and ankles. Back itself is nontender. No spine tenderness. No SI tenderness. Neurologically she is awake and alert. She is decreased sensation in both feet from chronic neuropathies. She has normal motor strength with both lower extremities. She is awake and alert. Test Results: LS spine x-ray shows chronic degenerative changes. And prior spinal rods placed. No significant change from prior. Pelvis and right hip x-ray shows degenerative changes of the right hip femoral head that is most likely from arthritis but cannot rule out avascular necrosis. No acute fracture. Both of these films are read by myself and the radiologist. Emergency Department Course and Treatment: Exam no change. I went over the x- rays with the patient. She does not want anything for pain. She will use Tylenol and/or Motrin. She is to follow-up with Dr. Andres Lynn her orthopedic surgeon who did her knee surgery. Treatment Plan: Follow-up. Disposition: Discharge Impression: Hip and back pain secondary to degenerative arthritis of the right hip This note was generated with [employer] dictation software. It may contain incorrect words, spelling, and punctuation that were not noted in review of the chart prior to signing ED Disposition - Plan for ED Patient: Referrals: Lilo Grullon MD [Primary Care Provider] -
--- NOTE | 2018-09-17 15:30 | RAD_ITS ---
STUDY: X-RAY - PELVIS AND RIGHT HIP REASON FOR EXAM: Female, 73 years old. Atraumatic pain. TECHNIQUE: 3 views of the pelvis and hip. COMPARISON: CT of the abdomen and pelvis, April 16, 2018. FINDINGS: There is a non-specific bowel gas pattern. Normal visualized soft tissue structures. There are multiple calcified phleboliths. There is posterior fusion of the thoracolumbar spine. Normal bilateral iliac wings, sacroiliac joints and visualized sacrum. Normal bilateral superior and inferior pubic rami. Normal pubic symphysis. Normal bilateral ischial tuberosities. There are [id number] degenerative changes of the left hip. There is slight flattening and increase density of the radial head with a vague central focus. The femoral head demonstrated findings suggestive of AVN on the prior CT. There is cortical sclerosis with sub-cortical cyst formation of the right acetabulum. There is mild articular joint space narrowing of the right hip. RAD/HIP, UNI W/ Pelvis 2-3 Views IMPRESSION: 1. Question AVN of the right femoral head with mild deep degenerative changes of the hip. There is no fracture or dislocation. 2. Stable findings of the pelvis and lumbar spine. Electronically Signed: Juan Hernandez DO at 16:09 EST Tel [phone], Service support ,
--- NOTE | 2018-09-17 16:16 | ED.DEP ---
ED Disposition - Plan for ED Patient: Disposition: Home or Assisted Living Instructions: ED Degenerative Joint Disease Referrals: Lilo Grullon MD [Primary Care Provider] - As Needed Ever Mckeon DO [STAFF PHYSICIAN] - As soon as possible Additional Instructions: Ice to right hip. Tylenol and/or Motrin for pain. Call follow-up with your orthopedic physician Dr. Ever Mckeon.
[2018-09-17 16:27] VITALS: BP 128/85; PULSE 77; RESP 15; O2SAT 99
== END 2018-09-17 16:38 | disposition home or self-care (01) ==
PROVIDERS: Emergency Provider Emergency Medicine; Family Provider Family Medicine; PCP Family Medicine
DX: M16.11 Unilateral primary osteoarthritis, right hip (principal); M54.5 Low back pain; M06.9 Rheumatoid arthritis, unspecified; Z86.711 Personal history of pulmonary embolism; Z79.82 Long term (current) use of aspirin; Z79.899 Other long term (current) drug therapy
CPT/HCPCS: 72100; 73502; 99282

== ENCOUNTER 2018-10-14 05:51 | Inpatient (IN) | payer MEDICARE, OTHER, SELFPAY ==
[2018-10-06 14:30] VITALS: BP 125/78; PULSE 74; RESP 16; TEMP 36.9; O2SAT 96; BMI 26.9
--- NOTE | 2018-10-06 14:39 | SDCEKG_ITS ---
Test Reason : Blood Pressure : / mmHG Vent. Rate : 068 BPM Atrial Rate : 068 BPM P-R Int : 168 ms QRS Dur : 080 ms QT Int : 400 ms P-R-T Axes : 049 -17 019 degrees QTc Int : 425 ms Normal sinus rhythm Cannot rule out Inferior infarct , age undetermined Abnormal ECG Confirmed by MYLES AGUERO, MAC ([id number]), newspaper copy editor JOANA BULLOCK ([id number]) on 10/07/2018 8:56:29 AM Referred By: Nico Winter Confirmed By:MAC BUENO MD
[2018-10-06 15:03] LABS: Hematocrit 39.8 % (37-47); Hemoglobin 13.2 g/dl (12.0-15.0); Mean Corp Hgb Conc 33.2 g/gl (32-36); Mean Corpuscular Hgb 28.3 pg (27.0-32.0); Mean Corpuscular Volume 85.4 fL (81-99); Mean Platelet Vol. 10.1 fl (6.2-12.0); Platelet Count 197 K/mm3 (150-450); RBC Distribution Width SD 46.7 fl (35.1-43.9); Red Blood Count 4.66 M/mm3 (4.2-5.4); Scan Indicated on CBC? Y/N NO; White Blood Count 5.5 K/mm3 (4.4-11.0)
[2018-10-06 15:30] LABS: Anion Gap 6 (5-15); BUN 19 mg/dL (7-18); BUN/Creat Ratio 23.2 RATIO (10-20); Calcium,Total 9.2 mg/dL (8.5-10.1); Chloride 104 mmol/L (98-107); Creatinine, Serum 0.82 mg/dL (0.55-1.02); EST Glomerular Filtration Rate 72 mL/min (>60); Est Glom Filt Rate - Afr Amer 87 mL/min (>60); Estimated Creatinine Clearance 49.04 ml/min; Glucose 92 mg/dL (74-106); Sodium Level 138 mmol/L (136-145)
[2018-10-14] VITALS (10 sets, daily range): BP systolic 114–134; BP diastolic 51–77; PULSE 71–90; RESP 16–20; TEMP 36.1–36.7; O2SAT 92–99; BMI 26.9
--- NOTE | 2018-10-14 07:04 | RAD_ITS ---
STUDY: X-RAY - RIGHT HIP REASON FOR EXAM: Postop right hip. TECHNIQUE: 2 views of the hip. COMPARISON: Intraoperative images obtained the same day. FINDINGS: There is a right hip arthroplasty without evidence of complication. Normal visualized superior and inferior pubic rami and ischial tuberosities. There are pelvic phleboliths. RAD/Hip Min 2 Views (Portable) IMPRESSION: Uncomplicated right hip arthroplasty. Electronically Signed: Sharan Taylor MD at 12:57 EDT Tel , Service support ,
[2018-10-14] MEDS: Celecoxib 200 MG Capsule 400 MG PO (07:12)
[2018-10-14] MEDS: Acetaminophen 500 MG Tablet 1000 MG PO ×3 (07:12→21:03)
[2018-10-14] MEDS: Lactated Ringers 1,000 ML 999 ML IV (07:30)
--- NOTE | 2018-10-14 08:15 | RAD_ITS ---
STUDY: X-RAY - RIGHT HIP REASON FOR EXAM: Female, 73 years old. Right hip replacement. TECHNIQUE: 2 views of the hip. COMPARISON: None. FINDINGS: The patient is status post right anterior hip replacement. There is good alignment. Normal visualized superior and inferior pubic rami and ischial tuberosities. RAD/Hip 1 view with Pelvis IMPRESSION: Status post right hip replacement. There is good alignment. Electronically Signed: Reza Stevens, at 10:01 EDT , Service support ,
[2018-10-14] MEDS: Cefazolin 2 GM in 0.9% Normal Saline 100 ML IV (08:18)
--- NOTE | 2018-10-14 09:28 | OP.PCM_ITS ---
Report of Operation Date of Procedure: 10/14/18 Pre-Operative Diagnosis: Right hip primary osteoarthritis Post-Operative Diagnosis: Right hip primary osteoarthritis Surgery/Procedure Performed:: Right direct anterior total hip replacement Description of Surgical Findings:: Stable hip with equal leg length sales development representative: Vijaya Hernandez Type of Anesthesia:: Spinal General Anesthesia Anesthesiologist: Emigdio Saeed Special Medications: 2 g Ancef, 1 g TXA at incision, 1 g TXA closure, 10 mg Decadron, joint cocktail (5 mg Duramorph, 30 mL of 0.5% Ropivicaine, 1000 units of epinephrine, 30 mg of Toradol) Specimen's removed: Bony cuts Estimated Blood Loss (mL): 150 Fluids Replaced: 1500 mL crystalloid Description of Procedure: Components used: 1. Accolade 2 Adeel femoral stem size 5 127? 2. [place] trident 2 acetabular shell size 50 mm 3. Adeel X3 polyethylene D 4. Adeel Biolox delta 36mm, -5mm femoral head Brief history operative indications: 73 yo f who failed conservative measures for their hip osteoarthritis. X-rays were consistent with osteoarthritis including joint space narrowing, osteophyte formation and subchondral cysts. Total hip replacement was discussed with the patient with risks and benefits including but not limited to blood loss, DVTs, PEs, neurovascular damage, dislocation, general risks of anesthesia including loss of life. Patient demonstrated an understanding medical clearance is obtained the patient was consented for surgery. Procedure: On the date of procedure the patient's r hip was marked in the preoperative area. Patient was then taken back to the operating room where anesthesia assu med control of the C-spine and airway and administered anesthetic. Patient was transferred to the operating table and placed in the supine position. The hips were placed at the break of the bed and a sacral bump was placed. The r lower extremity was then prepped out in a sterile fashion using chlorhexidine while the surgeon scrubbed. The PA was vital in the positioning of the patient. Upon reentering the room the r lower extremity was draped in the standard orthopedic fashion and the incision was marked. A timeout was called and everyone agreed upon the side, the site, the procedure be performed, antibody given, and patient's identity. At this time incision was made through skin, subcutaneous tissue, and fat down to fascia. The fascia was then incised and the TFL was retracted laterally. A retractor was placed on the lateral border of the femoral neck. Attention was directed to the inferior portion of the approach and all crossing vessels were identified and appropriately coagulated. A retractor was then placed on the medial portion of the femoral neck. The anterior capsule was then cleared of all soft tissue and then H shaped capsulotomy was made. The retractors were then placed inside the capsule. The femoral neck was identified and a cleanup cut was made. At this time a power corkscrew was used to remove the femoral head. Attention was then turned toward the acetabulum where the soft tissues were appropriately retracted and the acetabulum was sequentially reamed to 50 mm. A 50 mm cup was then selected and impacted into place. Acetabular liner was impac kasey into place and locking mechanism was verified. The position of the acetabular cup was then verified under live fluoroscopy. Attention was then turned to the femur. Soft tissue releases on the medial and lateral femoral neck were appropriately done, the leg was externally rotated and lateralized. A Malloy retractor was placed medially and proximally to the greater trochanter this allowed appropriate visualization and exposure of the femoral canal. Rongeour was then used to remove excess lateral bone. A canal finder and entry broach were used to open the proximal canal. Once we verified we were down the femoral canal we subsequently broached up to a size 5 femur. The appropriate neck was placed in the previously selected head was trialed with a -5 mm neck. Traction was pulled and the hip was reduced with internal rotation. Once it was appropriately reduced and stability was checked. There was minimal shuck, equal leg lengths and appropriate stability with hyperextension and external rotation as well as with 90? flexion and internal rotation. Fluoroscopy was then also used to verify the position of the components and leg lengths using the contralateral side for comparison. The trial components were then dislocated the proximal femur was again exposed and the components were removed from the wound. The final components were verified and opened. The wound was copiously irrigated out with normal saline. The acetabulum was checked for any residual debris. The final components were placed and impacted. Traction and internal rotation were again used to reduce the hip. After adequate reduction the hip remained stable with appropriate leg lengths. The final components were once again checked with live fluoroscopy and were found to be satisfactory. The wound was then copiously irrigated with normal saline once more, and hemostasis was obtained. Closure was then done using #1 Vicryl runner to close the fascia. A 2-0 vicryl interuppted sutures were used to close the subcutaneous skin. A 3-0 Monocryl and Steri-Strips were used for final skin closure. A Silverlon dressing was placed. Patient was awakened by anesthesia and [facility]. Patient was then transferred to the PACU for recovery. Postoperative plan: Patient will get 24 hours postop antibiotics. Patient will get in-house physical therapy and will be weight-bear as tolerated. Patient will follow up in office in 2 weeks for a wound check and x-rays. - Complications No intraoperative complications - Admit VTE Documentation VTE Present on Admission: No VTE Mechan Device Prophylaxis: SCD's, Thigh High KASEY Hose VTE Pharm Prophylaxis ordered?: Yes
[2018-10-14] MEDS: Ketorolac 15 MG/ML Vial IV (11:58)
--- NOTE | 2018-10-14 12:50 | CASEMGMT ---
GAURAV LAMBERT SERVICE ESTABLISHMENT ATTENDANT CM to room to meet with patient for initial transition planning/care coordination assessment. GAURAV LAMBERT introduced self and role at [facility]. Pt voices understanding and consents to assessment at this time. Pt sitting up in chair in room in no distress at this time. and son present. Pt is A/O at this time and answers all questions appropriately. Care providers, pharmacy, and demographics verified/updated at this time. PCP: [facility] Specialists: [facility] Preferred Pharmacy: [facility] Insurance: [facility], MMO Prescription Benefit: [facility] Living Will/HPOA: [facility] does not have LW or HCPOA . Would like to talk to to complete paperwork. Sonido NOLASCO CM notified and states she will notify SW. LNOK: and adult children. Family supportive. Living Arrangements: Lives with her in 2-story home. [employer]. Was independent with all ADL's and home mgmt tasks prior to surgery. Transportation: Pt drove prior to surgery. drives. No transportation concerns. States if goes to [facility] for out-pt therapy, wants to utilize [facility] [employer] transportation services. DME: [facility] has the following DME: shower chair, comfort height toilet, rails/grab bars, hand held shower, cane and wheeled walker. Walker is in room with pt. Does not have home O2. Pt states no need for further DME at this time. Prefers [employer] if would need DME on discharge. HHC/SNF: No hx HHC. Has been on [facility] @ [facility] in the past. States original plan was to go to on d/c, but is now considering going home and doing Out-pt therapy @ [facility]. Made aware there may not be a bed available on and asked pt if she has a 2nd SNF of choice if not. She states if does not have a bed available, then she wants to discharge home and do Out-pt therapy. CM to follow for any further discharge planning/needs. Pt voices no further concerns/needs at this time. Advised pt to ask for CM if any further questions/concerns/needs arise. Voices understanding. PLAN: RU vs Home w/Out-pt therapy @ [facility], utilizing [facility] Van transportation. Waiting to see if there will be a bed available @ and for pt to make final decision. Jeff PATTON RN CM
[2018-10-14] MEDS: Ondansetron 4 MG/2 ML Vial IV (13:04)
[2018-10-14] MEDS: 0.9% NaCl Peripheral Flush Adult/Peds IV (13:04)
[2018-10-14] MEDS: DULoxetine Hcl 30 MG Capsule PO (14:56)
[2018-10-14] MEDS: Famotidine 20 MG Tablet PO (14:56)
[2018-10-14] MEDS: Lactated Ringers 1,000 ML 125 ML IV (14:57)
--- NOTE | 2018-10-14 15:11 | CASEMGMT ---
Social Work Note RN PETRA Jeronimo updated this worker that she spoke with Isa with [facility] who states she is able to accept pt either tomorrow or Friday on RU. Pt updated. Plan: [facility] either or Friday Idalmis Foley NIB FINISHER, LENS GENERATING MACHINE TENDER
[2018-10-14] MEDS: Ensure Clear 120 ML Liquid PO (16:21)
[2018-10-14] MEDS: Cefazolin 1 GM/50 ML BAG IV (16:21)
[2018-10-14] MEDS: Aspirin 81 MG TAB.CHEW PO (16:22)
[2018-10-14] MEDS: Calcium Carb/Vitamin D 1 TABLET Tablet 2 TABLET PO (16:22)
[2018-10-14] MEDS: Senna/Docusate Sodium 1 Tablet 2 TABLET PO (21:03)
[2018-10-15] MEDS: Cefazolin 1 GM/50 ML BAG IV (00:58)
[2018-10-15] MEDS: 0.9% NaCl Peripheral Flush Adult/Peds IV (01:04)
[2018-10-15] MEDS: Ketorolac 15 MG/ML Vial IV (01:05)
[2018-10-15 01:50] VITALS: BP 127/57; PULSE 78; RESP 18; TEMP 37.1; O2SAT 97
[2018-10-15 05:32] LABS: Hematocrit 33.4 % (37-47); Hemoglobin 10.9 g/dl (12.0-15.0); Mean Corp Hgb Conc 32.6 g/gl (32-36); Mean Corpuscular Hgb 28.2 pg (27.0-32.0); Mean Corpuscular Volume 86.3 fL (81-99); Mean Platelet Vol. 10.3 fl (6.2-12.0); Platelet Count 180 K/mm3 (150-450); RBC Distribution Width CV 15.1 % (11.6-14.6); RBC Distribution Width SD 46.7 fl (35.1-43.9); Red Blood Count 3.87 M/mm3 (4.2-5.4); White Blood Count 9.1 K/mm3 (4.4-11.0)
[2018-10-15 05:34] LABS: Scan Indicated on CBC? Y/N NO
[2018-10-15 05:55] LABS: BUN 17 mg/dL (7-18); Creatinine, Serum 0.84 mg/dL (0.55-1.02); Estimated Creatinine Clearance 47.87 ml/min; Glucose 122 mg/dL (74-106)
[2018-10-15 05:56] LABS: Anion Gap 6 (5-15); BUN/Creat Ratio 20.3 RATIO (10-20); Calcium,Total 8.6 mg/dL (8.5-10.1); Chloride 107 mmol/L (98-107); EST Glomerular Filtration Rate 71 mL/min (>60); Est Glom Filt Rate - Afr Amer 85 mL/min (>60); Sodium Level 141 mmol/L (136-145)
[2018-10-15] MEDS: Acetaminophen 500 MG Tablet 1000 MG PO ×3 (06:05→21:12)
[2018-10-15] MEDS: Ensure Clear 120 ML Liquid PO ×2 (07:55→11:31)
[2018-10-15] MEDS: Meloxicam 7.5 MG Tablet PO ×2 (07:56→21:12)
[2018-10-15] MEDS: Famotidine 20 MG Tablet PO (07:56)
[2018-10-15] MEDS: Aspirin 81 MG TAB.CHEW PO ×2 (07:56→17:19)
[2018-10-15] MEDS: Calcium Carb/Vitamin D 1 TABLET Tablet 2 TABLET PO ×2 (07:56→17:19)
[2018-10-15 08:05] VITALS: BP 118/65; PULSE 74; RESP 16; TEMP 36.6; O2SAT 97
--- NOTE | 2018-10-15 08:51 | PCM.PN.ORT ---
Subjective: The patient was sitting in bedside chair upon examination. Patient denies any chest pain, shortness of breath, dizziness, lightheadedness, nausea or vomiting, or calf pain. Pain is controlled on medications. No adverse overnight events. Overall patient is doing well. Patient states she lives at home and does require going to fpc facility. Case management has been involved and states rehab unit at [facility] can take her either today or tomorrow. Objective: Vital signs stable and afebrile. Patient is able to plantarflex and dorsiflex actively. Sensation is intact to light touch to saphenous, sural, superficial and deep peroneal, and tibial distribution. Dressing is clean dry and intact. Negative Homans bilaterally, negative signs and symptoms of DVT. - Physical Exam General: Alert, Oriented x3, Cooperative, No apparent distress Vital Signs Temp Pulse Resp BP Pulse Ox 97.9 F 74 16 118/65 97 10/15/18 08:05 10/15/18 08:05 10/15/18 08:05 10/15/18 08:05 10/15/18 08:05 Oxygen Delivery Method Room Air Weight: 70 kg Body Mass Index (BMI) 26.9 Intake and Output for Last 24 Hours 10/13/18 10/14/18 10/15/18 23:59 23:59 23:59 Intake Total 2067 1242 / 1242 Output Total 1650 / 1650 Balance 2067 -408 / -408 Laboratory Tests Past 24 Hrs 10/15/18 10/15/18 04:56 04:56 WBC 9.1 RBC 3.87 L Hgb 10.9 L Hct 33.4 L MCV 86.3 MCH 28.2 MCHC 32.6 RDW 15.1 H RDW Differential 46.7 H Plt Count 180 MPV 10.3 Sodium 141 Potassium 4.0 Chloride 107 Carbon Dioxide 28.0 Anion Gap 6 BUN 17 Creatinine 0.84 Estim Creat Clear Calc 47.87 Est GFR (MDRD) Af Amer 85 Est GFR (MDRD) Non-Af 71 BUN/Creatinine Ratio 20.3 H Glucose 122 H Calcium 8.6 Medical Necessity - Tobacco Use Smoking Status: Never smoker Tobacco Use: Non-smoker Assessment/Plan All Active Problems (Last Updated 04/17/18 @ 10:54 by Galdino Mccracken DO) Pyelonephritis (Acute) Internal hemorrhoid (Resolved) Erosion of suburethral sling (Ruled-out) 1. S/P right total hip arthroplasty direct anterior approach POD #1 2. Continue Pain Medications: Tylenol and tramadol 3. DVT Prophylaxis: Aspirin 81 mg twice daily for DVT prophylaxis 4. PT/OT: Weightbearing as tolerated 5. H & H: 10.9/33.4, asymptomatic 6. Encouraged Incentive Spirometry 7. Disposition: Plan will be for discharge to rehab unit at [facility] either today versus tomorrow when bed available. Patient will continue with physical therapy while in the hospital. Prescriptions will be attached to chart. Patient will follow-up per postop instructions.
--- NOTE | 2018-10-15 09:02 | DCINST_ITS ---
Discharge Diet: No Restrictions Discharge Activity: May Not Drive - while taking narcotic pain medications. May shower in (days): 1 - If dressing is intact his skin. Turned dressing away from water Ice area for (Minutes): 20 - Every 1-2 hours while awake Weight Bearing Status: Weight bearing as tolerated Elevate: Operative Extremity Additional Activity Instructions:: Wear elastic stockings for 2 weeks. DO NOT use alcohol with narcotic pain medication. DO NOT make important decisions while taking narcotic medication. If you have problems with taking your medication (rash, itching, nausea, etc.) call the office at once. Call your doctor if your incision/area has: Increased Pain/ Swelling, Increased Redness, Foul Smelling Discharge Call your doctor if you observe: Fever of 101 or Higher Remove Dressing in (days):: 4 - Remove dressing on October 19, 2018 Additional Instructions: Follow [facility] postop instructions DVT prophylaxis: Take aspirin 81 mg twice daily with food for 4 weeks postoperatively. While taking aspirin for 4 weeks take famotidine 20 mg 1 tablet daily. Nonsteroidal anti-inflammatory: Take meloxicam 7.5 mg twice daily with food for 4 weeks postoperatively. Do not take any other anti-inflammatories while on this medication Hold taking Tumeric for 2 weeks postoperatively Allergies/Adverse Reactions: Allergies hydrocodone bitartrate [From Vicodin] Adverse Reaction (Verified 10/06/18 14:13) Nausea Metronidazole HCl [From Flagyl] Adverse Reaction (Verified 10/06/18 14:13) Other oxycodone HCl [From Percocet] Adverse Reaction (Verified 10/06/18 14:13) Nausea scopolamine Adverse Reaction (Verified 10/06/18 14:13) Other Medications to take at Discharge Calcium Carb/Vitamin D [Caltrate-600 With Vit D Tab] 1,000 mg PO BIDCM 10/13/14 Multivitamins,Therapeutic [Multivitamin] 1 tab PO DAILY 10/13/14 Duloxetine Hcl [Cymbalta] 30 mg PO DAILY 09/17/18 Biotin 10,000 mcg PO DAILY 10/06/18 Acetaminophen [Tylenol] 1,000 mg PO Q8 14 Days tablet 10/15/18 Aspirin [Aspirin, Baby] 81 mg PO BIDCM 30 Days tab.chew 10/15/18 Famotidine [Pepcid] 20 mg PO DAILY 30 Days #30 tab 10/15/18 Meloxicam [Mobic] 7.5 mg PO BID #60 tab 10/15/18 traMADol [Ultram] 50 - 100 mg PO Q6H PRN PRN 4 Days #30 tab 10/15/18 The following prescriptions were given: traMADol [Ultram] 50 - 100 mg PO Q6H PRN PRN 4 Days #30 tab PRN Reason: Mod-Severe Pain (-04/29) Famotidine [Pepcid] 20 mg PO DAILY 30 Days #30 tab Meloxicam [Mobic] 7.5 mg PO BID #60 tab Primary Care Physician: Lilo Grullon MD [Primary Care Provider] - Test Results: Test results from this visit will be discussed in further detail at your follow- up appointment, if applicable. Please Follow Up With: Babatunde Mayo PA-C When: 10/28/18 @ 9:00 am
--- NOTE | 2018-10-15 11:04 | CASEMGMT ---
Addendum entered by Idalmis Foley 10/15/18 11:21: Pt updated on acceptance to [facility] tomorrow. Original Note: Social Work Note SW spoke with Isa with [facility] stating she is able to accept pt tomorrow. Physician updated. Plan: [facility] Tomorrow Idalmis Foley VAN LOADER, CHAPERON
--- NOTE | 2018-10-15 14:00 | CASEMGMT ---
Social Work Note SW assisted pt in completed advanced directives. Original provided to pt and copy placed on pt's chart. Pt asked this worker about her completing documents. SW explained that either notary or two individuals not related to her is able to sign documents. Pt states understanding. Blank copy of advanced directives provided to pt per pt's request for her to complete. Idalmis Foley CLIENT REPRESENTATIVE, ENERGY ADMINISTRATOR
[2018-10-15 14:35] VITALS: BP 104/56; PULSE 80; RESP 16; TEMP 36.9; O2SAT 98
[2018-10-15] MEDS: traMADol 50 MG Tablet PO (17:21)
[2018-10-15 20:31] VITALS: BP 112/65; PULSE 82; RESP 16; TEMP 36.6; O2SAT 98
[2018-10-15] MEDS: Senna/Docusate Sodium 1 Tablet 2 TABLET PO (21:12)
[2018-10-15] MEDS: DULoxetine Hcl 30 MG Capsule PO (21:12)
[2018-10-16 02:12] VITALS: BP 116/78; PULSE 80; RESP 16; TEMP 36.9; O2SAT 96
[2018-10-16] MEDS: Acetaminophen 500 MG Tablet 1000 MG PO ×2 (06:04→13:54)
[2018-10-16 06:27] LABS: Hematocrit 34.1 % (37-47); Hemoglobin 11.2 g/dl (12.0-15.0); Mean Corp Hgb Conc 32.8 g/gl (32-36); Mean Corpuscular Hgb 28.3 pg (27.0-32.0); Mean Corpuscular Volume 86.1 fL (81-99); Mean Platelet Vol. 10.7 fl (6.2-12.0); Platelet Count 170 K/mm3 (150-450); RBC Distribution Width CV 15.6 % (11.6-14.6); RBC Distribution Width SD 47.8 fl (35.1-43.9); Red Blood Count 3.96 M/mm3 (4.2-5.4); White Blood Count 6.9 K/mm3 (4.4-11.0)
--- NOTE | 2018-10-16 06:35 | PN.ORTHO_ITS ---
Subjective: The patient was sitting in bedside chair upon examination. Patient denies any chest pain, shortness of breath, dizziness, lightheadedness, nausea or vomiting, or calf pain. Pain is controlled on medications. No adverse overnight events. Overall patient is doing very well. Plan was for patient to be discharged possibly yesterday but there was no bed available. Patient has a bed available today at the rehabilitation unit at [facility]. Patient has been doing well and tolerating therapy. Pain has been well controlled. She does report more pain today but medications are helpful. Objective: Vital signs stable and afebrile. Patient is able to plantarflex and dorsiflex actively. Sensation is intact to light touch to saphenous, sural, superficial and deep peroneal, and tibial distribution. Dressing is clean dry and intact. Negative Homans bilaterally, negative signs and symptoms of DVT. - Physical Exam General: Alert, Oriented x3, Cooperative, No apparent distress Vital Signs Temp Pulse Resp BP Pulse Ox 98.4 F 80 16 116/78 96 10/16/18 02:12 10/16/18 02:12 10/16/18 02:12 10/16/18 02:12 10/16/18 02:12 Oxygen Delivery Method Room Air Weight: 70 kg Body Mass Index (BMI) 26.9 Intake and Output for Last 24 Hours 10/14/18 10/15/18 10/16/18 23:59 23:59 23:59 Intake Total 2067 / 2067 2342 / 2342 600 / 600 Output Total 1650 / 1650 100 / 100 Balance 2067 / 2067 692 / 692 500 / 500 Laboratory Tests Past 24 Hrs 10/16/18 05:45 WBC Pending RBC Pending Hgb Pending Hct Pending MCV Pending MCH Pending MCHC Pending RDW Pending RDW Differential Pending Plt Count Pending Medical Necessity - Tobacco Use Smoking Status: Never smoker Tobacco Use: Non-smoker Assessment/Plan All Active Problems (Last Updated 04/17/18 @ 10:54 by Galdino Mccracken DO) Pyelonephritis (Acute) Internal hemorrhoid (Resolved) Erosion of suburethral sling (Ruled-out) 1. S/P right total hip arthroplasty direct anterior approach POD #2 2. Continue Pain Medications: Tylenol and tramadol 3. DVT Prophylaxis: Aspirin 81 mg twice daily for DVT prophylaxis 4. PT/OT: Weightbearing as tolerated 5. H & H: Currently pending 6. Encouraged Incentive Spirometry 7. Disposition: Plan will be for discharge to rehab unit at [facility] today. Patient will continue with physical therapy while in the hospital. Prescriptions will be attached to chart. Patient will follow-up per postop instructions. Prescriptions are attached to chart
[2018-10-16 06:36] LABS: Scan Indicated on CBC? Y/N NO
[2018-10-16 08:57] VITALS: BP 104/64; PULSE 75; RESP 18; TEMP 36.6; O2SAT 96
[2018-10-16] MEDS: Calcium Carb/Vitamin D 1 TABLET Tablet 2 TABLET PO (09:02)
[2018-10-16] MEDS: Meloxicam 7.5 MG Tablet PO (09:03)
[2018-10-16] MEDS: Famotidine 20 MG Tablet PO (09:03)
[2018-10-16] MEDS: Aspirin 81 MG TAB.CHEW PO (09:03)
[2018-10-16] MEDS: Ensure Clear 120 ML Liquid PO (09:06)
--- NOTE | 2018-10-16 09:32 | CASEMGMT ---
Social Work Note SW spoke with Isa with [facility] confirming she is able to accept pt on RU today. Plan: [facility] today Idalmis Foley EMPLOYMENT LAW SPECIALIST, HUMAN RESOURCE MANAGEMENT INSTRUCTOR
[2018-10-16 13:49] VITALS: BP 109/57; PULSE 82; RESP 16; TEMP 36.4; O2SAT 100
--- NOTE | 2018-10-16 14:09 | PCM.HP.STD ---
Problem List (1) Debility Status: Acute (2) Rheumatoid arthritis Status: Chronic Qualifiers: Rheumatoid arthritis location: unspecified site Rheumatoid factor presence: unspecified presence Qualified Code(s): M06.9 - Rheumatoid arthritis, unspecified (3) History of pulmonary embolism Status: Chronic (4) Anxiety and depression Status: Chronic (5) Status post total right knee replacement Status: Chronic Comment: Dr Mckeon 10/24/14 [facility] (6) Chronic back pain Status: Chronic Qualifiers: Back pain location: back pain in unspecified location Back pain laterality: unspecified Qualified Code(s): M54.9 - Dorsalgia, unspecified; G89.29 - Other chronic pain (7) Osteoarthritis Status: Chronic Qualifiers: Osteoarthritis location: unspecified site Osteoarthritis type: unspecified Qualified Code(s): M19.90 - Unspecified osteoarthritis, unspecified site (8) Sciatic neuropathy Status: Chronic Qualifiers: Laterality: unspecified laterality Qualified Code(s): G57.00 - Lesion of sciatic nerve, unspecified lower limb (9) Lumbar spondylosis with myelopathy Status: Chronic (10) Compression fx, lumbar spine Status: Chronic History of Present Illness Date of Admission: 10/16/18 Chief Complaint: Debility status post right total hip replacement. The patient is a 73 year old F with PMH rheumatoid arthritis, osteoarthritis, ?anxiety/depression, history of PE (provoked postsurgical), history of lumbar surgery admitted to [facility] on 10/16/2018 with debility status post right total hip replacement by Dr. Winter on 10/14/2018, for greater than 3 hours therapy daily with a goal of returning home at or near her prior level of functional independence. Patient's postoperative course was uncomplicated. Patient continues to have pain in the right hip region. She denies any headache, dizziness, focal motor weakness, sensory loss, visual disturbances or speech disturbances at present. Per patient she lives with her , was using cane or walker to ambulate. Denies any frequent falls. Does drive. She lives in an independent house has steps going into the house.] Past Medical History Past Medical History (Chronic Problems): Chronic Problems (Last Updated 04/17/18 @ 10:54 by Galdino Mccracken DO) Rheumatoid arthritis (Chronic) History of pulmonary embolism (Chronic) Anxiety and depression (Chronic) Status post total right knee replacement (Chronic) Dr Mckeon 10/24/14 [facility] Chronic back pain (Chronic) Osteoarthritis (Chronic) History of Clostridium difficile (Chronic) Sciatic neuropathy (Chronic) Lumbar spondylosis with myelopathy (Chronic) Compression fx, lumbar spine (Chronic) Medical History: Medical History (Last Updated 04/17/18 @ 10:54 by Galdino Mccracken DO) Internal hemorrhoid (Resolved) K64.8 Rheumatoid arthritis M06.9 Erosion of suburethral sling (Ruled-out) T83.712A Allergies hydrocodone bitartrate [From Vicodin] Adverse Reaction (Verified 10/06/18 14:13) Nausea Metronidazole HCl [From Flagyl] Adverse Reaction (Verified 10/06/18 14:13) Other oxycodone HCl [From Percocet] Adverse Reaction (Verified 10/06/18 14:13) Nausea scopolamine Adverse Reaction (Verified 10/06/18 14:13) Other Home Medications: Ambulatory Orders Medication Instructions Recorded Calcium Carb/Vitamin D 1,000 mg PO BIDCM 10/13/14 [Caltrate-600 With Vit D Tab] Multivitamins,Therapeutic 1 tab PO DAILY 10/13/14 [Multivitamin] Duloxetine Hcl [Cymbalta] 30 mg PO DAILY 09/17/18 Biotin 10,000 mcg PO DAILY 10/06/18 Acetaminophen [Tylenol] 1,000 mg PO Q8 14 Days tablet 10/15/18 Aspirin [Aspirin, Baby] 81 mg PO BIDCM 30 Days tab.chew 10/15/18 Famotidine [Pepcid] 20 mg PO DAILY 30 Days #30 tab 10/15/18 Meloxicam [Mobic] 7.5 mg PO BID #60 tab 10/15/18 traMADol [Ultram] 50 - 100 mg PO Q6H PRN PRN 4 Days 10/15/18 #30 tab Surgical History: Surgical History (Last Updated 03/09/18 @ 07:15 by Lawanda Last MD) history of bladder sling Surgical History: - - Total knee replacement, significant back surgery including cervical, thoracic and lumbar regions, left shoulder surgery, tonsillectomy, bladder surgery, bilateral carpal tunnel surgery, right thigh skin cancer resection. 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 Lives: Spouse/ Significant Other Smoking Status: Never smoker Tobacco Use: Non-smoker Alcohol: None Drugs: None - *Family History Maternal History Items: - - age 87 Paternal History Items: - - age 95, CHF, respiratory Offspring History Items: - - 4 children, 12 greandchildren, 4 great grandchildren, in good health Review of Systems Constitutional: Reports: - - Complete ROS negative except as documented in HPI VTE Information - Inpt Only VTE Present on Admission: No VTE Mechan Device Prophylaxis: SCD's, Knee High KASEY Hose VTE Pharm Prophylaxis ordered?: Yes Patient Problems: Active and Suspected Problems (Last Updated 04/17/18 @ 10:54 by Galdino Mccracken DO) Debility (Acute) - Physical Exam General: Alert HEENT: Normocephalic Neck: Supple Lungs: Normal air movement Cardiovascular: Normal S1, Normal S2 Abdomen: Bowel Sounds Present Extremities: No cyanosis Neurological: Cranial nerves II-XII grossly intact, Deep Tendon Reflexes 2+/4 and Symmetrical, Neuro grossly intact, Motor Exam 5/5 strength throughout, Muscle tone normal, Sensory exam intact to light touch and pain, Coordination normal Psych/Mental Status: Normal Affect Vital Signs Temp Pulse Resp BP Pulse Ox 97.6 F L 82 16 109/57 L 100 10/16/18 13:49 10/16/18 13:49 10/16/18 13:49 10/16/18 13:49 10/16/18 13:49 Oxygen Delivery Method Room Air Weight: 70 kg Body Mass Index (BMI) 26.9 Intake and Output for Last 24 Hours 10/14/18 10/15/18 10/16/18 23:59 23:59 23:59 Intake Total 2067 2342 / 2342 840 / 840 Output Total 1650 / 1650 100 / 100 Balance 2067 692 / 692 740 / 740 Laboratory Tests Past 24 Hrs 10/16/18 05:45 WBC 6.9 RBC 3.96 L Hgb 11.2 L Hct 34.1 L MCV 86.1 MCH 28.3 MCHC 32.8 RDW 15.6 H RDW Differential 47.8 H Plt Count 170 MPV 10.7 Assessment/Plan All Active Problems (Last Updated 04/17/18 @ 10:54 by Galdino Mccracken DO) Debility (Acute) Pyelonephritis (Acute) Internal hemorrhoid (Resolved) Erosion of suburethral sling (Ruled-out) The patient is a 73 year old F with PMH rheumatoid arthritis, osteoarthritis, ?anxiety/depression, history of PE (provoked postsurgical), history of lumbar surgery admitted to [facility] on 10/16/2018 with debility status post right total hip replacement by Dr. Winter on 10/14/2018, for greater than 3 hours therapy daily with a goal of returning home at or near her prior level of functional independence. Patient's postoperative course was uncomplicated. Patient continues to have pain in the right hip region. She denies any headache, dizziness, focal motor weakness, sensory loss, visual disturbances or speech disturbances at present. Per patient she lives with her , was using cane or walker to ambulate. Denies any frequent falls. Does drive. She lives in an independent house has steps going into the house.] Plan ?PT for gait stability ?OT for ADLs ?Analgesics as needed ?Bowel per protocol ?Status post right total hip replacement?further management recommendations as per orthopedics. Weightbearing as tolerated. ?Rheumatoid arthritis?stable, not on any medication at present ?? Anxiety/depression-on Cymbalta ?Fall precautions ?GI/DVT prophylaxis?on famotidine/aspirin 81 mg p.o. twice daily. SCDs/KASEY hose. On aspirin 81 mg p.o. twice daily for DVT prophylaxis plan per orthopedic Dr. Winter recommendation ?Hospitalist consult ?Further medical management per hospitalist recommendation ?Follow-up with PCP and orthopedics Dr. Winter on discharge. Code Visit Inpatient E&M: 16501 Init Hosp L3
--- NOTE | 2018-10-16 14:14 | HP.PCM_ITS ---
Problem List (1) Debility Status: Acute (2) Rheumatoid arthritis Status: Chronic Qualifiers: Rheumatoid arthritis location: unspecified site Rheumatoid factor presence: unspecified presence Qualified Code(s): M06.9 - Rheumatoid arthritis, unspecified (3) History of pulmonary embolism Status: Chronic (4) Anxiety and depression Status: Chronic (5) Status post total right knee replacement Status: Chronic Comment: Dr Mckeon 10/24/14 [facility] (6) Chronic back pain Status: Chronic Qualifiers: Back pain location: back pain in unspecified location Back pain laterality: unspecified Qualified Code(s): M54.9 - Dorsalgia, unspecified; G89.29 - Other chronic pain (7) Osteoarthritis Status: Chronic Qualifiers: Osteoarthritis location: unspecified site Osteoarthritis type: unspecified Qualified Code(s): M19.90 - Unspecified osteoarthritis, unspecified site (8) Sciatic neuropathy Status: Chronic Qualifiers: Laterality: unspecified laterality Qualified Code(s): G57.00 - Lesion of sciatic nerve, unspecified lower limb (9) Lumbar spondylosis with myelopathy Status: Chronic (10) Compression fx, lumbar spine Status: Chronic History of Present Illness Date of Admission: 10/16/18 Chief Complaint: Debility status post right total hip replacement. The patient is a 73 year old F with PMH rheumatoid arthritis, osteoarthritis, ?anxiety/depression, history of PE (provoked postsurgical), history of lumbar surgery admitted to [facility] on 10/16/2018 with debility status post right total hip replacement by Dr. Winter on 10/14/2018, for greater than 3 hours therapy daily with a goal of returning home at or near her prior level of functional independence. Patient's postoperative course was uncomplicated. Patient continues to have pain in the right hip region. She denies any headache, dizziness, focal motor weakness, sensory loss, visual disturbances or speech disturbances at present. Per patient she lives with her , was using cane or walker to ambulate. Denies any frequent falls. Does drive. She lives in an independent house has steps going into the house.] Past Medical History Past Medical History (Chronic Problems): Chronic Problems (Last Updated 04/17/18 @ 10:54 by Galdino Mccracken DO) Rheumatoid arthritis (Chronic) History of pulmonary embolism (Chronic) Anxiety and depression (Chronic) Status post total right knee replacement (Chronic) Dr Mckeon 10/24/14 [facility] Chronic back pain (Chronic) Osteoarthritis (Chronic) History of Clostridium difficile (Chronic) Sciatic neuropathy (Chronic) Lumbar spondylosis with myelopathy (Chronic) Compression fx, lumbar spine (Chronic) Medical History: Medical History (Last Updated 04/17/18 @ 10:54 by Galdino Mccracken DO) Internal hemorrhoid (Resolved) K64.8 Rheumatoid arthritis M06.9 Erosion of suburethral sling (Ruled-out) T83.712A Allergies hydrocodone bitartrate [From Vicodin] Adverse Reaction (Verified 10/06/18 14:13) Nausea Metronidazole HCl [From Flagyl] Adverse Reaction (Verified 10/06/18 14:13) Other oxycodone HCl [From Percocet] Adverse Reaction (Verified 10/06/18 14:13) Nausea scopolamine Adverse Reaction (Verified 10/06/18 14:13) Other Home Medications: Ambulatory Orders Medication Instructions Recorded Calcium Carb/Vitamin D 1,000 mg PO BIDCM 10/13/14 [Caltrate-600 With Vit D Tab] Multivitamins,Therapeutic 1 tab PO DAILY 10/13/14 [Multivitamin] Duloxetine Hcl [Cymbalta] 30 mg PO DAILY 09/17/18 Biotin 10,000 mcg PO DAILY 10/06/18 Acetaminophen [Tylenol] 1,000 mg PO Q8 14 Days tablet 10/15/18 Aspirin [Aspirin, Baby] 81 mg PO BIDCM 30 Days tab.chew 10/15/18 Famotidine [Pepcid] 20 mg PO DAILY 30 Days #30 tab 10/15/18 Meloxicam [Mobic] 7.5 mg PO BID #60 tab 10/15/18 traMADol [Ultram] 50 - 100 mg PO Q6H PRN PRN 4 Days 10/15/18 #30 tab Surgical History: Surgical History (Last Updated 03/09/18 @ 07:15 by Lawanda Last MD) history of bladder sling Surgical History: - - Total knee replacement, significant back surgery including cervical, thoracic and lumbar regions, left shoulder surgery, tonsillectomy, bladder surgery, bilateral carpal tunnel surgery, right thigh skin cancer resection. 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 Lives: Spouse/ Significant Other Smoking Status: Never smoker Tobacco Use: Non-smoker Alcohol: None Drugs: None - *Family History Maternal History Items: - - age 87 Paternal History Items: - - age 95, CHF, respiratory Offspring History Items: - - 4 children, 12 greandchildren, 4 great grandchildren, in good health Review of Systems Constitutional: Reports: - - Complete ROS negative except as documented in HPI VTE Information - Inpt Only VTE Present on Admission: No VTE Mechan Device Prophylaxis: SCD's, Knee High KASEY Hose VTE Pharm Prophylaxis ordered?: Yes Patient Problems: Active and Suspected Problems (Last Updated 04/17/18 @ 10:54 by Galdino Mccracken DO) Debility (Acute) - Physical Exam General: Alert HEENT: Normocephalic Neck: Supple Lungs: Normal air movement Cardiovascular: Normal S1, Normal S2 Abdomen: Bowel Sounds Present Extremities: No cyanosis Neurological: Cranial nerves II-XII grossly intact, Deep Tendon Reflexes 2+/4 and Symmetrical, Neuro grossly intact, Motor Exam 5/5 strength throughout, Muscle tone normal, Sensory exam intact to light touch and pain, Coordination normal Psych/Mental Status: Normal Affect Vital Signs Temp Pulse Resp BP Pulse Ox 97.6 F L 82 16 109/57 L 100 10/16/18 13:49 10/16/18 13:49 10/16/18 13:49 10/16/18 13:49 10/16/18 13:49 Oxygen Delivery Method Room Air Weight: 70 kg Body Mass Index (BMI) 26.9 Intake and Output for Last 24 Hours 10/14/18 10/15/18 10/16/18 23:59 23:59 23:59 Intake Total 2067 2342 / 2342 840 / 840 Output Total 1650 / 1650 100 / 100 Balance 2067 692 / 692 740 / 740 Laboratory Tests Past 24 Hrs 10/16/18 05:45 WBC 6.9 RBC 3.96 L Hgb 11.2 L Hct 34.1 L MCV 86.1 MCH 28.3 MCHC 32.8 RDW 15.6 H RDW Differential 47.8 H Plt Count 170 MPV 10.7 Assessment/Plan All Active Problems (Last Updated 04/17/18 @ 10:54 by Galdino Mccracken DO) Debility (Acute) Pyelonephritis (Acute) Internal hemorrhoid (Resolved) Erosion of suburethral sling (Ruled-out) The patient is a 73 year old F with PMH rheumatoid arthritis, osteoarthritis, ?anxiety/depression, history of PE (provoked postsurgical), history of lumbar surgery admitted to [facility] on 10/16/2018 with debility status post right total hip replacement by Dr. Winter on 10/14/2018, for greater than 3 hours therapy daily with a goal of returning home at or near her prior level of functional independence. Patient's postoperative course was uncomplicated. Patient continues to have pain in the right hip region. She denies any headache, dizziness, focal motor weakness, sensory loss, visual disturbances or speech disturbances at present. Per patient she lives with her , was using cane or walker to ambulate. Denies any frequent falls. Does drive. She lives in an independent house has steps going into the house.] Plan ?PT for gait stability ?OT for ADLs ?Analgesics as needed ?Bowel per protocol ?Status post right total hip replacement?further management recommendations as per orthopedics. Weightbearing as tolerated. ?Rheumatoid arthritis?stable, not on any medication at present ?? Anxiety/depression-on Cymbalta ?Fall precautions ?GI/DVT prophylaxis?on famotidine/aspirin 81 mg p.o. twice daily. SCDs/KASEY hose. On aspirin 81 mg p.o. twice daily for DVT prophylaxis plan per orthopedic Dr. Winter recommendation ?Hospitalist consult ?Further medical management per hospitalist recommendation ?Follow-up with PCP and orthopedics Dr. Winter on discharge. Code Visit Inpatient E&M: 54304 Init Hosp L3
--- NOTE | 2018-10-16 15:31 | NURSING ---
Report given to Pati NOLASCO
== END 2018-10-16 15:45 | DRG 470 ==
LOC: MS3 05:52
PROVIDERS: Admitting Provider Specialist; Family Provider Family Medicine; PCP Family Medicine; Referring Provider Specialist; Visit Provider Specialist
PROC: 0SR90JA Replacement of Right Hip Joint with Synthetic Substitute, Uncemented, Open Approach (ICD-10-PCS; CPT 27284; principal; 2018-10-14 07:50)
DX: M16.11 Unilateral primary osteoarthritis, right hip (principal); E66.3 Overweight; Z68.26 Body mass index [BMI] 26.0-26.9, adult
CPT/HCPCS: 36415; 73501; 73502; 76000; 80048; 85027; 87081; 93005; 97110; 97162; 97166; 97530; 97535; 99251; C1776; J7120; A4216; G0463; J2405

== ENCOUNTER 2018-10-16 15:58 | Inpatient (IN) | payer MEDICARE, OTHER, SELFPAY ==
[2018-10-14 10:58] VITALS: BMI 26.9
[2018-10-16 16:30] VITALS: BP 116/59; PULSE 69; RESP 16; TEMP 36.6; O2SAT 96
[2018-10-16 16:42] VITALS: BMI 27.3
--- NOTE | 2018-10-16 17:56 | NURSING ---
Aware of being a fall risk and demonstrated call portillo use.
--- NOTE | 2018-10-16 18:05 | PCM.PN.HOSP ---
Subjective: Consult requested for medical management. Patient underwent of R THR on the . Patient states that she has a little bit more pain in her hip than initially after surgery but otherwise feels well. Vitals/I&O's: Weight: 70 kg Body Mass Index (BMI) 27.3 General: Alert, No apparent distress, - - Appears younger than stated age HEENT: Atraumatic, Normocephalic Oral: Moist Mucosa, No Gingival or Mucosal Lesions/ Ulcerations Neck: No Nodes, Thyroid Normal Size and Texture Lungs: Clear to auscultation, Normal air movement, No rhonchi, No wheeze Cardiovascular: Regular rate, Regular Rhythm, Normal S1, Normal S2, No murmurs Abdomen: Bowel Sounds Present, Soft, Non Tender, Non-Distended, No Hepato-splenomegaly Extremities: No edema, No Calf Tenderness Psych/Mental Status: Normal Affect, Appropriate Current Medications Acetaminophen (Tylenol) 1,000 mg PO Q8 JULIETTE Aspirin (Aspirin, Baby) 81 mg PO BIDCM JULIETTE Aspirin (Aspirin, Baby) 81 mg PO X1 ONE Stop: 10/16/18 17:57 Bisacodyl (Dulcolax) 10 mg RECTAL .PRN X 1 PRN PRN Reason: Constipation Calcium/Vitamin D (Os-Yasmani 500mg + D) 1 tablet PO BIDCM [facility] Duloxetine HCl (Cymbalta) 30 mg PO DAILY JULIETTE Famotidine (Pepcid) 20 mg PO DAILY JULIETTE Magnesium Hydroxide (Milk Of Magnesia) 30 ml PO .PRN X 1 PRN PRN Reason: Constipation Multivitamins (Multivitamin) 1 tablet PO DAILYCM [facility] Nutritional Formula (Lactose Free) (Ensure Enlive) 120 ml PO 4X/DAY JULIETTE Senna/Docusate Sodium (Senokot-S, Domonique-Colace) 2 tablet PO BID PRN PRN Reason: Constipation Tramadol HCl (Ultram) 50 - 100 mg PO Q8H PRN PRN PRN Reason: MODERATE PAIN (4-5/10) Medical Necessity - Tobacco Use Smoking Status: Never smoker Assessment/Plan All Active Problems (Last Updated 04/17/18 @ 10:54 by Galdino Mccracken DO) Debility (Acute) Pyelonephritis (Acute) Internal hemorrhoid (Resolved) Erosion of suburethral sling (Ruled-out) 1. Status post right total hip replacement Patient admitted to rehab where she will have physical outpatient therapy is prescribed by rehab services. Patient on aspirin 81 mg twice daily for DVT prophylaxis Patient will need to follow-up with Dr. Winter as outpatient for postoperative follow-up. Thank for the consult. The hospitalist service will be available if medical issues do arise during the course of the patient's hospitalization. Currently patient is hemodynamically stable. Please contact the hospitalist who will assume the patient's care if medical issues do arise. Code Visit Inpatient E&M: [id number] Subs Hosp L2
--- NOTE | 2018-10-16 18:09 | PN_ITS ---
Subjective: Consult requested for medical management. Patient underwent of R THR on the . Patient states that she has a little bit more pain in her hip than initially after surgery but otherwise feels well. Vitals/I&O's: Weight: 70 kg Body Mass Index (BMI) 27.3 General: Alert, No apparent distress, - - Appears younger than stated age HEENT: Atraumatic, Normocephalic Oral: Moist Mucosa, No Gingival or Mucosal Lesions/ Ulcerations Neck: No Nodes, Thyroid Normal Size and Texture Lungs: Clear to auscultation, Normal air movement, No rhonchi, No wheeze Cardiovascular: Regular rate, Regular Rhythm, Normal S1, Normal S2, No murmurs Abdomen: Bowel Sounds Present, Soft, Non Tender, Non-Distended, No Hepato- splenomegaly Extremities: No edema, No Calf Tenderness Psych/Mental Status: Normal Affect, Appropriate Current Medications Acetaminophen (Tylenol) 1,000 mg PO Q8 JULIETTE Aspirin (Aspirin, Baby) 81 mg PO BIDCM JULIETTE Aspirin (Aspirin, Baby) 81 mg PO X1 ONE Stop: 10/16/18 17:57 Bisacodyl (Dulcolax) 10 mg RECTAL .PRN X 1 PRN PRN Reason: Constipation Calcium/Vitamin D (Os-Yasmani 500mg + D) 1 tablet PO BIDCM [facility] Duloxetine HCl (Cymbalta) 30 mg PO DAILY JULIETTE Famotidine (Pepcid) 20 mg PO DAILY JULIETTE Magnesium Hydroxide (Milk Of Magnesia) 30 ml PO .PRN X 1 PRN PRN Reason: Constipation Multivitamins (Multivitamin) 1 tablet PO DAILYCM [facility] Nutritional Formula (Lactose Free) (Ensure Enlive) 120 ml PO 4X/DAY JULIETTE Senna/Docusate Sodium (Senokot-S, Domonique-Colace) 2 tablet PO BID PRN PRN Reason: Constipation Tramadol HCl (Ultram) 50 - 100 mg PO Q8H PRN PRN PRN Reason: MODERATE PAIN (4-5/10) Medical Necessity - Tobacco Use Smoking Status: Never smoker Assessment/Plan All Active Problems (Last Updated 04/17/18 @ 10:54 by Galdino Mccracken DO) Debility (Acute) Pyelonephritis (Acute) Internal hemorrhoid (Resolved) Erosion of suburethral sling (Ruled-out) 1. Status post right total hip replacement * Patient admitted to rehab where she will have physical outpatient therapy is prescribed by rehab services. * Patient on aspirin 81 mg twice daily for DVT prophylaxis * Patient will need to follow-up with Dr. Winter as outpatient for postoperative follow-up. Thank for the consult. The hospitalist service will be available if medical issues do arise during the course of the patient's hospitalization. Currently patient is hemodynamically stable. Please contact the hospitalist who will assume the patient's care if medical issues do arise. Code Visit Inpatient E&M: 65102 Subs Hosp L2
[2018-10-16 19:48] VITALS: BP 113/65; PULSE 91; RESP 16; TEMP 36.9; O2SAT 96
[2018-10-16] MEDS: traMADol 50 MG Tablet PO (19:50)
[2018-10-16] MEDS: Aspirin 81 MG TAB.CHEW PO (19:50)
[2018-10-16] MEDS: Acetaminophen 500 MG Tablet 1000 MG PO (21:35)
--- NOTE | 2018-10-17 01:11 | NURSING ---
Pt's daughter notified nursing staff of mother's right hip area feeling hot and that her mother had alot of pain. Camille RN and Tomas NOLASCO assessed surgical area. Mepilex pulled back - steri strips intact with small amt dried bloody drainage along incision line. Skin mildly red around mepilex dressing. Area warm to touch but not hot. Afebrile. Hospitalist notified by Pati NOLASCO. Polar care to be applied.
[2018-10-17] MEDS: Acetaminophen 500 MG Tablet 1000 MG PO ×3 (06:36→21:25)
[2018-10-17 07:20] LABS: Absolute Lymphocyte Count 2.36 X10^3/ul (0.83-4.51); Absolute Neutrophil Count 4.1 X10^3/uL (2.0-7.7); Basophil# 0.02 X10^3/uL; Basophil% 0.3 % (0-1); Eosinophil# 0.36 X10^3/uL; Hemoglobin 11.2 g/dl (12.0-15.0); Lymphocyte # 2.36 X10^3/ul (4.0); Lymphocyte % 32.6 % (19-41); Mean Corp Hgb Conc 32.9 g/gl (32-36); Mean Platelet Vol. 9.8 fl (6.2-12.0); Monocyte# 0.39 X10^3/uL; Monocyte% 5.4 % (0-10); Neutrophil # 4.11 X10^3/uL (2.7-7.7); Neutrophil % 56.6 % (47-70); Platelet Count 191 K/mm3 (150-450); RBC Distribution Width CV 15.9 % (11.6-14.6); RBC Distribution Width SD 50.2 fl (35.1-43.9); White Blood Count 7.3 K/mm3 (4.4-11.0)
[2018-10-17 07:21] LABS: POSITIVE COUNT NO; POSITIVE DIFFERENTIAL NO; POSITIVE MORPHOLOGY NO
[2018-10-17 07:46] LABS: ALB/GLOB Ratio 0.7 RATIO (0.9-2.4); AST(SGOT) 28 U/L (15-37); Alanine Aminotransfer ALT/SGPT 19 U/L (13-56); Albumin, Serum 2.7 g/dL (3.2-5.0); Alkaline Phosphatase 59 U/L (45-117); Anion Gap 7 (5-15); BUN 18 mg/dL (7-18); BUN/Creat Ratio 26.1 RATIO (10-20); Calcium,Total 8.6 mg/dL (8.5-10.1); Chloride 107 mmol/L (98-107); Creatinine, Serum 0.69 mg/dL (0.55-1.02); EST Glomerular Filtration Rate 88 mL/min (>60); Est Glom Filt Rate - Afr Amer 107 mL/min (>60); Estimated Creatinine Clearance 40.21 ml/min; Globulin 3.7 g/dL (2.2-4.2); Glucose 91 mg/dL (74-106); Protein, Total 6.4 g/dL (6.4-8.2); Sodium Level 142 mmol/L (136-145)
[2018-10-17 09:23] VITALS: BP 112/61; PULSE 94; RESP 18; TEMP 36.9; O2SAT 95
[2018-10-17] MEDS: Calcium Carb/Vitamin D 1 TABLET Tablet PO ×2 (09:34→17:35)
[2018-10-17] MEDS: Multivitamins,Therapeutic Tablet 1 TABLET PO (09:34)
[2018-10-17] MEDS: DULoxetine Hcl 30 MG Capsule PO (09:34)
[2018-10-17] MEDS: Famotidine 20 MG Tablet PO (09:34)
[2018-10-17] MEDS: Aspirin 81 MG TAB.CHEW PO ×2 (09:34→17:51)
[2018-10-17 17:25] VITALS: O2SAT 95
[2018-10-17 19:49] VITALS: BP 124/53; PULSE 97; RESP 16; TEMP 36.4; O2SAT 95
[2018-10-17 22:00] VITALS: PULSE 90; RESP 18
[2018-10-18] MEDS: Acetaminophen 500 MG Tablet 1000 MG PO ×3 (06:06→21:29)
[2018-10-18 07:29] VITALS: BP 126/70; PULSE 90; RESP 18; TEMP 36.7; O2SAT 96
[2018-10-18] MEDS: Calcium Carb/Vitamin D 1 TABLET Tablet PO ×2 (07:36→16:44)
[2018-10-18] MEDS: DULoxetine Hcl 30 MG Capsule PO (07:36)
[2018-10-18] MEDS: Aspirin 81 MG TAB.CHEW PO ×2 (07:36→16:44)
[2018-10-18] MEDS: Multivitamins,Therapeutic Tablet 1 TABLET PO (07:36)
[2018-10-18] MEDS: Famotidine 20 MG Tablet PO (07:36)
--- NOTE | 2018-10-18 11:10 | REHABEVAL_ITS ---
Admission Information Status Changes from Prescreening?: No changes Identified Actual Problem List:: Mobility Impaired, Self Care Deficit Potential Problem List:: DVT, Bleeding, Infection, UTI, Aspiration, Falls, Skin Integrity, Depression Risk of Complications DVT: LMWH, KASEY Hose, Sequential Compression Device Bleeding: Monitor Lab Values, Nursing to Teach Precautions for anti-coagulation therapy., Wound, if applicable, to be assessed every shift., Stroke patients assessed for lethargy or change in status. Infection: Clinical Staff to Monitor for S/S of infection:, S/S of infection include fever, redness, warmth, etc. Urinary Tract Infection: Monitor for frequency, burning, discomfort, or incontinence., Nursing will obtain urine sample for urinalysis and C&S when ordered. Aspiration: Clinical staff will monitor for coughing, drooling, congestion., Speech will evaluate swallowing and dsyphasia., Nursing will monitor patient swallowing during meals. Falls: Patient will be evaluated for Fall Precautions, Patient will be placed on Fall Precautions as indicated per protocol. Skin Breakdown: Nursing will assess skin daily using assessment tool., Nursing will place on Skin Breakdown Precautions as indicated. Pain: Clinical staff will assess patient's pain level per protocol., Medications will be given, if needed, and the pain level reassessed., Other methods: Massage, distraction, decrease stimulus, etc. used PRN. Plan of Care Patient requires physician specializing in physical medicine and rehab oversight to provide close medical supervision of rehab issues including: Pain Management, Sleep Problems, Bowel and Bladder, Medical and co-morbidity Management, DVT prophylaxis, Rehabilitation Leadership, Coordination of treatment team Patient needs Physical Therapy: For a minimum of 1 hour, At least 5 out of 7 days Patient needs Physical Therapy to improve:: Mobility, Mobility, Mobility, Strengthening, Transfers, Stretching, ROM, Endurance, Stairs, Gait, Balance Patient needs Occupational Therapy: For a minimum of 1 hour, At least 5 out of 7 days Patient needs Occupational Therapy to improve ADL's incl.: Eating, Grooming, Bathing, Dressing, Toileting, Toilet transfers, Community Reintegration, Higher functioning activities, Household tasks, Adaptive Equipment, Splinting, Other activities as determined Patient requires 24/7 Rehabilitation Nursing for: Pain Issues, Identifying and preventing risk factors, Monitoring and reporting current medical conditions, Assisting with ambulation, transfer, and all ADL's, Teaching patients about disease process and medications, Family teaching, Providing safe environment, Bowel and Bladder Issues, Skin integrity, Medication Management Patient needs Reclamation Engineer/ Case Management for: Discharge Planning, Arranging Home Equipment or Services, Family Interventions Patient needs Dietary and Nutrition Services for: Adequate Nutrition, Nutritional Supplements, Nutritional Education Goals Patient will remain: free from falls, or injury at time of discharge. Patient will perform bed mobility at: MOD I level of assist. Patient will complete transfers from bed to chair at: MOD I level of assist. Patient will ambulate: 100 feet, with MOD I assist, with LRD Patient will complete upper body dressing at: MOD I level of assist. Patient will complete lower body dressing at: MOD I level of assist. Patient will complete toileting at: MOD I level of assist. Patient will perform bathing at: MOD I level of assist. Patient will complete grooming at: MOD I level of assist. Patient will complete home management skills at: MOD I level of assist. Patient will achieve: 12 stairs, at MOD I assist Patient will have pain level of: of 3 or less Patient's skin will: remain intact, free from infection. Patient will receive: adequate nutrition. Discharge Planning Pt Prognosis for Sig. Practical Improv. w/in Reasonable Time: Good Estimated Length of stay (days): 16 Anticipated D/C Destination: Home Was Preadmission Assessment Accurate?: Yes
[2018-10-18] MEDS: traMADol 50 MG Tablet PO (16:38)
[2018-10-18 21:15] VITALS: BP 108/58; PULSE 84; RESP 16; TEMP 37.1; O2SAT 95
--- NOTE | 2018-10-19 03:02 | NURSING ---
Reviewed and agree with BALL MILL MIXER documentation and FIMs charting.
[2018-10-19] MEDS: Acetaminophen 500 MG Tablet 1000 MG PO ×3 (06:02→20:43)
[2018-10-19 09:21] VITALS: BP 113/56; PULSE 84; RESP 16; TEMP 36.3; O2SAT 97
[2018-10-19] MEDS: Aspirin 81 MG TAB.CHEW PO ×2 (09:22→17:23)
[2018-10-19] MEDS: Calcium Carb/Vitamin D 1 TABLET Tablet PO ×2 (09:22→17:23)
[2018-10-19] MEDS: DULoxetine Hcl 30 MG Capsule PO (09:22)
[2018-10-19] MEDS: Famotidine 20 MG Tablet PO (09:22)
[2018-10-19] MEDS: Multivitamins,Therapeutic Tablet 1 TABLET PO (09:22)
[2018-10-19] MEDS: traMADol 50 MG Tablet PO (09:26)
[2018-10-19 11:00] VITALS: O2SAT 96
--- NOTE | 2018-10-19 16:30 | CASEMGMT ---
Social Work Rehab Unit Reviewed and approve AMPOULE INSPECTOR student Kya Bautista documentation: RU Social work admission assessment completed on 10.19.2018 at 1121. -JOSEPH Crawford ,BAR TENDER
[2018-10-19 20:30] VITALS: BP 113/69; PULSE 90; RESP 16; TEMP 36.9; O2SAT 98
--- NOTE | 2018-10-20 00:58 | NURSING ---
pt up to the br and voided 150cc in the hat and bladder scan done and pt was noted to have 575cc left in her bladder. pt straight cathed for 600cc of clear yellow strong smelling urine . pt tolerated procedure well. pt has been retaining high residuals with no urinary sx or discomfort voiced. rn aware of the above charting
--- NOTE | 2018-10-20 02:41 | NURSING ---
pt up to the br to void and urinated 400cc of clear yellow urine. pt bladder scanned for 583cc. rn aware and will continue to monitor voiding trials pt voiced no sx or discomfort
--- NOTE | 2018-10-20 03:01 | NURSING ---
Reviewed and agree with AGENT TICKETING GATE documentation and FIMs charting.
[2018-10-20] MEDS: Acetaminophen 500 MG Tablet 1000 MG PO ×3 (05:13→21:37)
--- NOTE | 2018-10-20 05:26 | NURSING ---
pt awake and am care completed with scientific software developer assistance. pt up to void and urinated 300cc and was bladder scanned for 772cc. pt was straight cathed for 850cc and tolerated procedure well. pt reports no sx or discomfort at this time. will continue to monitor output. rn aware
[2018-10-20 07:38] VITALS: O2SAT 91
[2018-10-20] MEDS: Calcium Carb/Vitamin D 1 TABLET Tablet PO ×2 (08:03→17:47)
[2018-10-20] MEDS: Aspirin 81 MG TAB.CHEW PO ×2 (08:03→17:47)
[2018-10-20] MEDS: DULoxetine Hcl 30 MG Capsule PO (08:03)
[2018-10-20] MEDS: Famotidine 20 MG Tablet PO (08:03)
[2018-10-20] MEDS: Multivitamins,Therapeutic Tablet 1 TABLET PO (08:03)
[2018-10-20 09:28] VITALS: BP 114/68; PULSE 74; RESP 18; TEMP 36.5; O2SAT 97
[2018-10-20] MEDS: traMADol 50 MG Tablet PO (10:51)
--- NOTE | 2018-10-20 13:45 | PN.NEURO_ITS ---
- Physical Exam Vital Signs Temp Pulse Resp BP Pulse Ox 36.5 C L 74 18 114/68 97 10/20/18 09:28 10/20/18 09:28 10/20/18 09:28 10/20/18 09:28 10/20/18 09:28 Oxygen Delivery Method Room Air Weight: 70 kg Body Mass Index (BMI) 27.3 Intake and Output for Last 24 Hours 10/18/18 10/19/18 10/20/18 23:59 23:59 23:59 Intake Total 260 / 260 680 / 680 Output Total 150 / 150 700 / 700 Balance 260 / 260 -150 / -150 -20 / -20 Medical Necessity - Tobacco Use Smoking Status: Never smoker Assessment/Plan All Active Problems (Last Updated 04/17/18 @ 10:54 by Galdino Mccracken DO) Debility (Acute) Pyelonephritis (Acute) Internal hemorrhoid (Resolved) Erosion of suburethral sling (Ruled-out) The patient is a 73 year old F with PMH rheumatoid arthritis, controlled only on Cymbalta, osteoarthritis, ?anxiety/depression, history of PE (provoked postsurgical), history of lumbar surgery admitted to [facility] on 10/16/2018 with debility status post right total hip replacement by Dr. Winter on 10/14/2018, goal of returning home prior level of functional independence. Patient's postoperative course was uncomplicated. Patient continues to have pain in the right hip region. She denies any headache, dizziness, focal motor weakness, sensory loss, visual disturbances or speech disturbances at present. Per patient she lives with her , was using cane or walker to ambulate. Denies any frequent falls. Does drive. She lives in an independent house has steps going into the house.] Plan Physical therapy for gait and balance Occupational therapy for ADLs PRN analgesics Bowel protocol Status post right total hip replacement?further management recommendations as per orthopedics. Weightbearing as tolerated. 10/20: Stable/improved Rheumatoid arthritis?stable, not on any medication at present. Her joints appear to be intact. Only takes Cymbalta for pain. Anxiety/depression-on Cymbalta?GI/DVT prophylaxis?on famotidine/aspirin 81 mg p.o. twice daily. SCDs/KASEY hose. On aspirin 81 mg p.o. twice daily for DVT prophylaxis plan per orthopedic Dr. Winter recommendation
--- NOTE | 2018-10-20 15:58 | PN_ITS ---
Subjective: Patient seen and examined. She has no complaints and feels well. She is tolerating rehab well. Review of systems is otherwise negative. Vitals/I&O's: Vital Signs Temp Pulse Resp BP Pulse Ox 97.7 F L 74 18 114/68 97 10/20/18 09:28 10/20/18 09:28 10/20/18 09:28 10/20/18 09:28 10/20/18 09:28 Oxygen Delivery Method Room Air Weight: 154 lb 5.177 oz Body Mass Index (BMI) 27.3 Intake and Output for Last 24 Hours 10/18/18 10/19/18 10/20/18 23:59 23:59 23:59 Intake Total 260 / 260 680 / 680 Output Total 150 / 150 1600 / 1600 Balance 260 / 260 -150 / -150 -920 / -920 General: Alert, Oriented x3, Cooperative, No apparent distress HEENT: Atraumatic, PERRLA, EOMI, Normocephalic Oral: Moist Mucosa Neck: Supple, No JVD, Negative Carotid Bruits Lungs: Clear to auscultation, Normal air movement, No rhonchi, No wheeze, No rales Cardiovascular: Regular rate, Regular Rhythm, Normal S1, Normal S2, No murmurs Abdomen: Bowel Sounds Present, Soft, Non Tender, Non-Distended, No Hepato- splenomegaly Extremities: No clubbing, No cyanosis, No edema, Capillary Refill Less than 3 Seconds Skin: No rashes, No breakdown Musculoskeletal: No Tenderness to Palpation of Joints or Extremities Lymphatic: No Cervical, Supraclavicular, or Inguinal Adenopathy Neurological: Cranial nerves II-XII grossly intact, Neuro grossly intact, Motor Exam 5/5 strength throughout Psych/Mental Status: Normal Affect, Appropriate, Alert and oriented to time, place, person, mood and affect Current Medications Acetaminophen (Tylenol) 1,000 mg PO Q8 [facility] Last Admin: 10/20/18 15:15 Dose: 1,000 mg Aspirin (Aspirin, Baby) 81 mg PO BIDCM [facility] Last Admin: 10/20/18 08:03 Dose: 81 mg Bisacodyl (Dulcolax) 10 mg RECTAL .PRN X 1 PRN PRN Reason: Constipation Calcium/Vitamin D (Os-Yasmani 500mg + D) [facility] Admin: 10/20/18 08:03 Dose: 1 tablet Duloxetine HCl (Cymbalta) 30 mg PO DAILY [facility] Last Admin: 10/20/18 08:03 Dose: 30 mg Famotidine (Pepcid) 20 mg PO DAILY [facility] Last Admin: 10/20/18 08:03 Dose: 20 mg Magnesium Hydroxide (Milk Of Magnesia) 30 ml PO .PRN X 1 PRN PRN Reason: Constipation Multivitamins (Multivitamin) 1 tablet PO DAILYCM [facility] Last Admin: 10/20/18 08:03 Dose: 1 tablet Senna/Docusate Sodium (Senokot-S, Domonique-Colace) 2 tablet PO BID PRN PRN Reason: Constipation Tamsulosin HCl (Flomax) 0.4 mg PO DAILY@1730 [facility] Tramadol HCl (Ultram) 50 - 100 mg PO Q8H PRN PRN PRN Reason: MODERATE PAIN (4-5/10) Last Admin: 10/20/18 10:51 Dose: 50 mg Medical Necessity - Tobacco Use Smoking Status: Never smoker Assessment/Plan All Active Problems (Last Updated 04/17/18 @ 10:54 by Galdino Mccracken DO) Debility (Acute) Pyelonephritis (Acute) Internal hemorrhoid (Resolved) Erosion of suburethral sling (Ruled-out) 1. 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 2. Urinary retention: had mild urinary retention which has now resolved. started on flomax DVT prophylaxis: on aspirin 81mg bid Code Visit Inpatient E&M: 87378 Subs Hosp L2
[2018-10-20] MEDS: Tamsulosin HCl 0.4 MG Capsule PO (18:05)
[2018-10-20 21:41] VITALS: BP 125/68; PULSE 71; RESP 18; TEMP 36.8; O2SAT 94
[2018-10-20 22:00] VITALS: PULSE 85; RESP 18
[2018-10-21] MEDS: Acetaminophen 500 MG Tablet 1000 MG PO ×3 (04:54→21:30)
[2018-10-21 07:06] VITALS: BP 128/64; PULSE 84; RESP 18; TEMP 36.6; O2SAT 97
[2018-10-21] MEDS: Multivitamins,Therapeutic Tablet 1 TABLET PO (07:52)
[2018-10-21] MEDS: Calcium Carb/Vitamin D 1 TABLET Tablet PO ×2 (07:52→16:25)
[2018-10-21] MEDS: DULoxetine Hcl 30 MG Capsule PO (07:52)
[2018-10-21] MEDS: Famotidine 20 MG Tablet PO (07:52)
[2018-10-21] MEDS: Aspirin 81 MG TAB.CHEW PO ×2 (07:52→16:25)
[2018-10-21] MEDS: traMADol 50 MG Tablet PO ×2 (07:55→20:29)
--- NOTE | 2018-10-21 13:17 | PCM.PN.NEU ---
Subjective: Complaints. No GI or complaints. She reports that the Flomax has helped her urinary retention and she is no longer receiving straight catheterizations. Sleeping well, tolerating therapies. No other complaints. - Physical Exam General: Alert, Oriented x3, Cooperative, No apparent distress HEENT: PERRLA, EOMI Neurological: Cranial nerves II-XII grossly intact Psych/Mental Status: Normal Affect, Alert and oriented to time, place, person, mood and affect Vital Signs Temp Pulse Resp BP Pulse Ox 36.6 C 84 18 128/64 H 97 10/21/18 07:06 10/21/18 07:06 10/21/18 07:06 10/21/18 07:06 10/21/18 07:06 Oxygen Delivery Method Room Air Weight: 73.8 kg Body Mass Index (BMI) 27.3 Intake and Output for Last 24 Hours 10/19/18 10/20/18 10/21/18 23:59 23:59 23:59 Intake Total 1170 / 1170 240 / 240 Output Total 150 / 150 2050 / 2050 800 / 800 Balance -150 / -150 -880 / -880 -560 / -560 Current Medications Generic Name Dose Route Start Last Admin Trade Name Freq PRN Reason Stop Dose Admin Acetaminophen 1,000 mg 10/16/18 22:00 10/21/18 12:59 Tylenol PO 1,000 mg Q8 JULIETTE Administration Aspirin 81 mg 10/17/18 08:00 10/21/18 07:52 Aspirin, Baby PO 81 mg BIDCM JULIETTE Administration Bisacodyl 10 mg 10/16/18 16:56 Dulcolax RECTAL .PRN X 1 PRN Constipation Calcium/Vitamin D 1 tablet 10/17/18 08:00 10/21/18 07:52 Os-Yasmani 500mg + D PO 1 tablet BIDCM JULIETTE Administration Duloxetine HCl 30 mg 10/17/18 10:00 10/21/18 07:52 Cymbalta PO 30 mg DAILY JULIETTE Administration Famotidine 20 mg 10/17/18 10:00 10/21/18 07:52 Pepcid PO 20 mg DAILY JULIETTE Administration Magnesium Hydroxide 30 ml 10/16/18 16:56 Milk Of Magnesia PO .PRN X 1 PRN Constipation Multivitamins 1 tablet 10/17/18 08:00 10/21/18 07:52 Multivitamin PO 1 tablet DAILYCM JULIETTE Administration Senna/Docusate Sodium 2 tablet 10/16/18 16:56 Senokot-S, Domonique-Colace PO BID PRN Constipation Tamsulosin HCl 0.4 mg 10/20/18 17:30 10/20/18 18:05 Flomax PO 0.4 mg DAILY@1730 JULIETTE Administration Tramadol HCl 50 - 100 mg 10/16/18 17:04 10/21/18 07:55 Ultram PO 50 mg Q8H PRN PRN Administration MODERATE PAIN (4-5/10) Medical Necessity - Tobacco Use Smoking Status: Never smoker Assessment/Plan All Active Problems (Last Updated 04/17/18 @ 10:54 by Galdino Mccracken, ) Debility (Acute) Pyelonephritis (Acute) Internal hemorrhoid (Resolved) Erosion of suburethral sling (Ruled-out) The patient is a 73 year old F with PMH rheumatoid arthritis, controlled only on Cymbalta, osteoarthritis, ?anxiety/depression, history of PE (provoked postsurgical), history of lumbar surgery admitted to [facility] on 10/16/2018 with debility status post right total hip replacement by Dr. Winter on 10/14/2018, goal of returning home prior level of functional independence. Patient's postoperative course was uncomplicated. Patient continues to have pain in the right hip region. She denies any headache, dizziness, focal motor weakness, sensory loss, visual disturbances or speech disturbances at present. Per patient she lives with her , was using cane or walker to ambulate. Denies any frequent falls. Does drive. She lives in an independent house has steps going into the house.] Plan Physical therapy for gait and balance Occupational therapy for ADLs PRN analgesics Bowel protocol Status post right total hip replacement?further management recommendations as per orthopedics. Weightbearing as tolerated. 10/20: Stable/improved Rheumatoid arthritis?stable, not on any medication at present. Her joints appear to be intact. Only takes Cymbalta for pain. Anxiety/depression-on Cymbalta?GI/DVT prophylaxis?on famotidine/aspirin 81 mg p.o. twice daily. SCDs/KASEY hose. On aspirin 81 mg p.o. twice daily for DVT prophylaxis plan per orthopedic Dr. Winter recommendation Urinary retention: Flomax started 10/20. This appears to have helped significantly, no further straight caths. Will follow.
[2018-10-21] MEDS: Tamsulosin HCl 0.4 MG Capsule PO (16:30)
[2018-10-21 20:15] VITALS: BP 116/71; PULSE 78; RESP 16; TEMP 36.6; O2SAT 93
[2018-10-22] MEDS: Acetaminophen 500 MG Tablet 1000 MG PO ×3 (05:08→20:46)
[2018-10-22] MEDS: traMADol 50 MG Tablet PO (08:41)
[2018-10-22] MEDS: DULoxetine Hcl 30 MG Capsule PO (08:41)
[2018-10-22] MEDS: Aspirin 81 MG TAB.CHEW PO ×2 (08:41→18:31)
[2018-10-22] MEDS: Famotidine 20 MG Tablet PO (08:41)
[2018-10-22] MEDS: Calcium Carb/Vitamin D 1 TABLET Tablet PO ×2 (08:42→18:31)
[2018-10-22] MEDS: Multivitamins,Therapeutic Tablet 1 TABLET PO (08:44)
[2018-10-22 08:47] VITALS: BP 101/69; PULSE 91; RESP 18; TEMP 36.6; O2SAT 95
--- NOTE | 2018-10-22 10:40 | PCM.RU.DC ---
Rehab Discharge Summary DATE OF ADMISSION: 10/16/18 DATE OF DISCHARGE: 10/24/18 - Rehab Diagnosis Debility status post right total hip replacement - Physical Exam General: Alert, Oriented x3, Cooperative, No apparent distress HEENT: PERRLA, EOMI Lungs: Clear to auscultation Cardiovascular: Regular rate Abdomen: Bowel Sounds Present, Soft, Non Tender, Non-Distended Extremities: No Calf Tenderness Skin: No rashes Musculoskeletal: - - Hip pain, improved, incision clear Neurological: Cranial nerves II-XII grossly intact Psych/Mental Status: Normal Affect, Alert and oriented to time, place, person, mood and affect Vital Signs Temp Pulse Resp BP Pulse Ox 36.6 C 91 18 101/69 95 10/22/18 08:47 10/22/18 08:47 10/22/18 08:47 10/22/18 08:47 10/22/18 08:47 Oxygen Delivery Method Room Air Weight: 73.8 kg Body Mass Index (BMI) 27.3 Intake and Output for Last 24 Hours 10/20/18 10/21/18 10/22/18 23:59 23:59 23:59 Intake Total 1170 / 1170 240 / 240 440 / 440 Output Total 2049 / 2049 1200 / 1200 200 / 200 Balance -880 / -880 -960 / -960 240 / 240 Discharge Diet: No Restrictions Discharge Activity: Return to Normal Activity, May Not Drive Weight Bearing Status: Weight bearing as tolerated Lifting Restrict to (lbs):: 10 Home Medications: Medications to take at Discharge Calcium Carb/Vitamin D [Caltrate-600 With Vit D Tab] 1,000 mg PO BIDCM 10/13/14 Multivitamins,Therapeutic [Multivitamin] 1 tab PO DAILY 10/13/14 Duloxetine Hcl [Cymbalta] 30 mg PO DAILY 09/17/18 Acetaminophen [Tylenol] 1,000 mg PO Q8 10/16/18 Aspirin [Aspirin, Baby] 81 mg PO BIDCM 10/16/18 Famotidine [Pepcid] 20 mg PO DAILY 10/16/18 Senna/Docusate Sodium [Senokot-S] 2 tablet PO BID PRN tablet 10/22/18 Tamsulosin HCl [Flomax] 0.4 mg PO DAILY@1730 #30 cap 10/22/18 traMADol [Ultram] 50 - 100 mg PO Q8H PRN PRN 7 Days #7 tab 10/22/18 Following Prescrptions Were Given to Patient: traMADol [Ultram] 50 - 100 mg PO Q8H PRN PRN 7 Days #7 tab PRN Reason: Moderate Pain (4-5/10) Tamsulosin HCl [Flomax] 0.4 mg PO DAILY@1730 #30 cap Primary Care Physician: Lilo Grullon MD [Primary Care Provider] - Please Follow Up With: Nico Winter MD When: Scheduled Disposition: Home Minutes spent on discharge:: 40 Patient Condition:: Good Rehab Course The patient is a 73 year old F with PMH rheumatoid arthritis, controlled only on Cymbalta, osteoarthritis, ?anxiety/depression, history of PE (provoked postsurgical), history of lumbar surgery admitted to [facility] on 10/16/2018 with debility status post right total hip replacement by Dr. Winter on 10/14/2018, goal of returning home prior level of functional independence. Patient's postoperative course was uncomplicated. Patient continues to have pain in the right hip region. She denies any headache, dizziness, focal motor weakness, sensory loss, visual disturbances or speech disturbances at present. Per patient she lives with her , was using cane or walker to ambulate. Denies any frequent falls. Does drive. She lives in an independent house has steps going into the house. Course was uneventful. She continued to improve throughout the rehab stay. She has some baseline urinary urgency and retention, which was worse in the rehab unit likely due to combination of factors ultimately she no longer required any straight catheterizations after Flomax was initiated. She was discharged home in good condition with follow-up instructions as above. Meaningful Use Info Meaningful Use Diagnoses (Choose all that apply): None applicable
--- NOTE | 2018-10-22 10:46 | DCINST_ITS ---
You will use the following diet at home:: No restrictions Your food should be the consistency of: Regular Your liquids should be the consistency of: Regular/Thin Discharge Activity: Return to Normal Activity, May Not Drive Weight Bearing Status: Weight bearing as tolerated Lifting Restrictions: 10 pounds Allergies/Adverse Reactions: Allergies hydrocodone bitartrate [From Vicodin] Adverse Reaction (Verified 10/06/18 14:13) Nausea Metronidazole HCl [From Flagyl] Adverse Reaction (Verified 10/06/18 14:13) Other oxycodone HCl [From Percocet] Adverse Reaction (Verified 10/06/18 14:13) Nausea scopolamine Adverse Reaction (Verified 10/06/18 14:13) Other Medications to take at Discharge Calcium Carb/Vitamin D [Caltrate-600 With Vit D Tab] 1,000 mg PO BIDCM 10/13/14 Multivitamins,Therapeutic [Multivitamin] 1 tab PO DAILY 10/13/14 Duloxetine Hcl [Cymbalta] 30 mg PO DAILY 09/17/18 Acetaminophen [Tylenol] 1,000 mg PO Q8 10/16/18 Aspirin [Aspirin, Baby] 81 mg PO BIDCM 10/16/18 Famotidine [Pepcid] 20 mg PO DAILY 10/16/18 Senna/Docusate Sodium [Senokot-S] 2 tablet PO BID PRN tablet 10/22/18 Tamsulosin HCl [Flomax] 0.4 mg PO DAILY@1730 #30 cap 10/22/18 traMADol [Ultram] 50 - 100 mg PO Q8H PRN PRN 7 Days #7 tab 10/22/18 The following prescriptions were given: traMADol [Ultram] 50 - 100 mg PO Q8H PRN PRN 7 Days #7 tab PRN Reason: Moderate Pain (4-5/10) Tamsulosin HCl [Flomax] 0.4 mg PO DAILY@1730 #30 cap Primary Care Physician: Lilo Grullon MD [Primary Care Provider] - Test Results: Test results from this visit will be discussed in further detail at your follow- up appointment, if applicable. Please Follow Up With: Nico Winter MD When: Scheduled Proposed Discharge Date: 10/24/18
--- NOTE | 2018-10-22 10:47 | PN.NEURO_ITS ---
Subjective: No complaints. Staffed in team meeting. is present. Doing well from physical therapy and occupational therapy standpoint. Nursing notes still some residuals on post void residual testing but she has not required straight catheterization and overall this is improved since Flomax was initiated. Plan to discharge home 10/24/18. No other complaints or questions. - Physical Exam General: Alert, Oriented x3, Cooperative, No apparent distress HEENT: PERRLA, EOMI Neurological: Cranial nerves II-XII grossly intact Psych/Mental Status: Normal Affect, Alert and oriented to time, place, person, mood and affect Vital Signs Temp Pulse Resp BP Pulse Ox 36.6 C 91 18 101/69 95 10/22/18 08:47 10/22/18 08:47 10/22/18 08:47 10/22/18 08:47 10/22/18 08:47 Oxygen Delivery Method Room Air Weight: 73.8 kg Body Mass Index (BMI) 27.3 Intake and Output for Last 24 Hours 10/20/18 10/21/18 10/22/18 23:59 23:59 23:59 Intake Total 1170 / 1170 240 / 240 440 / 440 Output Total 2049 / 2049 1200 / 1200 200 / 200 Balance -880 / -880 -960 / -960 240 / 240 Medical Necessity - Tobacco Use Smoking Status: Never smoker Assessment/Plan All Active Problems (Last Updated 04/17/18 @ 10:54 by Galdino Mccracken DO) Debility (Acute) Pyelonephritis (Acute) Internal hemorrhoid (Resolved) Erosion of suburethral sling (Ruled-out) The patient is a 73 year old F with PMH rheumatoid arthritis, controlled only on Cymbalta, osteoarthritis, ?anxiety/depression, history of PE (provoked postsurgi yanelis), history of lumbar surgery admitted to [facility] on 10/16/2018 with debility status post right total hip replacement by Dr. Winter on 10/14/2018, goal of returning home prior level of functional independence. Patient's postoperative course was uncomplicated. Patient continues to have pain in the right hip region. She denies any headache, dizziness, focal motor weakness, sensory loss, visual disturbances or speech disturbances at present. Per patient she lives with her , was using cane or walker to ambulate. Denies any frequent falls. Does drive. She lives in an independent house has steps going into the house.] Plan Physical therapy for gait and balance Occupational therapy for ADLs PRN analgesics Bowel protocol Status post right total hip replacement?further management recommendations as per orthopedics. Weightbearing as tolerated. 10/20: Stable/improved Rheumatoid arthritis?stable, not on any medication at present. Her joints patrick ear to be intact. Only takes Cymbalta for pain. Anxiety/depression-on Cymbalta?GI/DVT prophylaxis?on famotidine/aspirin 81 mg p.o. twice daily. SCDs/KASEY lakee. On aspirin 81 mg p.o. twice daily for DVT prophylaxis plan per orthopedic Dr. Winter recommendation Urinary retention: Flomax started 10/20. This appears to have helped significantly, no further straight caths. Will follow. 10/22: No further straight catheterizations. Home 10/24
--- NOTE | 2018-10-22 10:57 | CASEMGMT ---
Social Work Team meeting held today with pt and spouse present. Pt is receiving PT/OT and progressing well. Pt stating she would like to discharge on Friday10/24/18 where she will return home with her . Therapy is recommending outpt PT and pt would like to use [employer] with the assistance of the hospital van for transportation. Pt has needed DME. SW will follow for D/C planning. SURJIT Tinajero
--- NOTE | 2018-10-22 13:51 | CASEMGMT ---
Addendum entered by Luz De Guzman 10/23/18 12:20: Student Social Work documentation reviewed SURJIT Tinajero Original Note: Social Work Patient needs outpatient physical therapy with transportation van to get to appointment. Called and spoke with An at [facility] to set up outpatient physical therapy for patient. Faxed pt order to [facility]. Discharge date: 10/24/18 Discharge plan: Home with and outpatient physical therapy Donna Acosta social work student
[2018-10-22] MEDS: Tamsulosin HCl 0.4 MG Capsule PO (18:30)
[2018-10-22 19:31] VITALS: BP 108/69; PULSE 89; RESP 16; TEMP 36.5; O2SAT 96
[2018-10-23] MEDS: Acetaminophen 500 MG Tablet 1000 MG PO ×3 (06:12→21:20)
[2018-10-23 07:00] VITALS: BP 102/64; PULSE 94; RESP 16; TEMP 36.7; O2SAT 95
[2018-10-23] MEDS: Multivitamins,Therapeutic Tablet 1 TABLET PO (09:28)
[2018-10-23] MEDS: Calcium Carb/Vitamin D 1 TABLET Tablet PO ×2 (09:28→17:16)
[2018-10-23] MEDS: DULoxetine Hcl 30 MG Capsule PO (09:28)
[2018-10-23] MEDS: Famotidine 20 MG Tablet PO (09:28)
[2018-10-23] MEDS: Aspirin 81 MG TAB.CHEW PO ×2 (09:29→17:16)
[2018-10-23 10:45] VITALS: BP 118/70; PULSE 92; RESP 17; TEMP 36.6; O2SAT 95
--- NOTE | 2018-10-23 11:04 | CASEMGMT ---
Addendum entered by Luz De Guzman 10/23/18 12:32: Student clinical social work aide documentation including d/c summary and d/c appointments reviewed. SURJIT Tinajero Original Note: Addendum entered by Deedee Acosta 10/23/18 12:23: Provided pt with information on medical alert buttons. Arya Acosta Original Note: Social Work Promise from [facility] returned phone call - Outpatient therapy with transportation van set up for patient 11/02/18 at 2pm. Relayed information to patient and patient is agreeable. Discharge date: 10/24/18 Discharge plan: Home with and outpatient therapy services
--- NOTE | 2018-10-23 15:11 | PCM.PN.HOSP ---
Subjective: Patient seen. Has no complaints. Irritation is improved since Flomax was started. Review of systems otherwise negative. Plan for DC on 10/24/2018 per neurology Vitals/I&O's: Vital Signs Temp Pulse Resp BP Pulse Ox 98.1 F 94 16 102/64 95 10/23/18 07:00 10/23/18 07:00 10/23/18 07:00 10/23/18 07:00 10/23/18 07:00 Oxygen Delivery Method Room Air Weight: 162 lb 11.218 oz Body Mass Index (BMI) 27.3 Intake and Output for Last 24 Hours 10/21/18 10/22/18 10/23/18 23:59 23:59 23:59 Intake Total 240 / 240 880 / 880 360 / 360 Output Total 1200 / 1200 200 / 200 Balance -960 / -960 680 / 680 360 / 360 General: Alert, Oriented x3, Cooperative, No apparent distress HEENT: Atraumatic, PERRLA, EOMI, Normocephalic Oral: Moist Mucosa Neck: Supple, No JVD, Negative Carotid Bruits Lungs: Clear to auscultation, Normal air movement, No rhonchi, No wheeze, No rales Cardiovascular: Regular rate, Regular Rhythm, Normal S1, Normal S2, No murmurs Abdomen: Bowel Sounds Present, Soft, Non Tender, Non-Distended, No Hepato-splenomegaly Extremities: No clubbing, No cyanosis, No edema, Capillary Refill Less than 3 Seconds Skin: No rashes, No breakdown Musculoskeletal: No Tenderness to Palpation of Joints or Extremities Lymphatic: No Cervical, Supraclavicular, or Inguinal Adenopathy Neurological: Cranial nerves II-XII grossly intact, Neuro grossly intact, Motor Exam 5/5 strength throughout Psych/Mental Status: Normal Affect, Appropriate, Alert and oriented to time, place, person, mood and affect Current Medications Acetaminophen (Tylenol) 1,000 mg PO Q8 [facility] Last Admin: 10/23/18 13:53 Dose: 1,000 mg [facility] Admin: 10/23/18 09:29 Dose: 81 mg Bisacodyl (Dulcolax) 10 mg RECTAL .PRN X 1 PRN PRN Reason: Constipation Calcium/Vitamin D (Os-Yasmani 500mg + D) [facility] Last Admin: 10/23/18 09:28 Dose: 1 tablet Duloxetine HCl (Cymbalta) 30 mg PO DAILY [facility] Last Admin: 10/23/18 09:28 Dose: 30 mg Famotidine (Pepcid) 20 mg PO DAILY [facility] Last Admin: 10/23/18 09:28 Dose: 20 mg Magnesium Hydroxide (Milk Of Magnesia) 30 ml PO .PRN X 1 PRN PRN Reason: Constipation Multivitamins (Multivitamin) [facility] Last Admin: 10/23/18 09:28 Dose: 1 tablet Senna/Docusate Sodium (Senokot-S, Domonique-Colace) 2 tablet PO BID PRN PRN Reason: Constipation Tamsulosin HCl (Flomax) 0.4 mg PO DAILY@1730 [facility] Last Admin: 10/22/18 18:30 Dose: 0.4 mg Tramadol HCl (Ultram) 50 - 100 mg PO Q8H PRN PRN PRN Reason: MODERATE PAIN (4-5/10) Last Admin: 10/22/18 08:41 Dose: 50 mg Medical Necessity - Tobacco Use Smoking Status: Never smoker Assessment/Plan All Active Problems (Last Updated 04/17/18 @ 10:54 by Galdino Mccracken, ) Debility (Acute) Pyelonephritis (Acute) Internal hemorrhoid (Resolved) Erosion of suburethral sling (Ruled-out) 1. Right hip arthritis s/p right total hip replacement had surgery on 10/14/18 tolerating PT/OT on tylenol and tramadol for pain. 2. Urinary retention: had mild urinary retention which has now resolved. on flomax DVT prophylaxis: on aspirin 81mg bid Code Visit Inpatient E&M: 84459 Subs Hosp L2
[2018-10-23] MEDS: Tamsulosin HCl 0.4 MG Capsule PO (17:16)
[2018-10-23 21:09] VITALS: BP 128/71; PULSE 89; RESP 16; TEMP 36.8; O2SAT 98
[2018-10-24] MEDS: Acetaminophen 500 MG Tablet 1000 MG PO (06:07)
[2018-10-24] MEDS: Multivitamins,Therapeutic Tablet 1 TABLET PO (08:16)
[2018-10-24] MEDS: Famotidine 20 MG Tablet PO (08:16)
[2018-10-24] MEDS: DULoxetine Hcl 30 MG Capsule PO (08:16)
[2018-10-24] MEDS: Calcium Carb/Vitamin D 1 TABLET Tablet PO (08:16)
[2018-10-24] MEDS: Aspirin 81 MG TAB.CHEW PO (08:16)
[2018-10-24 10:00] VITALS: BP 118/70; PULSE 92; RESP 17; TEMP 37.1; O2SAT 95
--- NOTE | 2018-10-24 10:34 | NURSING ---
Went over discharge instructions, medications and appt. pt verbalized understanding. Pt discharged home with all personal belongings, in stable condition.
== END 2018-10-24 09:30 | disposition home or self-care (01) | DRG 561 ==
PROVIDERS: Admitting Provider Psychiatry & Neurology Neurology; Family Provider Family Medicine; PCP Family Medicine; Referring Provider Psychiatry & Neurology Neurology; Visit Provider Internal Medicine
DX: Z47.1 Aftercare following joint replacement surgery (principal); Z96.641 Presence of right artificial hip joint; M06.9 Rheumatoid arthritis, unspecified; F41.9 Anxiety disorder, unspecified; F32.9 Major depressive disorder, single episode, unspecified; Z86.711 Personal history of pulmonary embolism; M19.90 Unspecified osteoarthritis, unspecified site; R33.9 Retention of urine, unspecified
CPT/HCPCS: 36415; 80053; 85025; 97110; 97116; 97162; 97166; 97530; 97535; 97802

== ENCOUNTER → 2018-11-17 14:33 | Outpatient (CLI) | payer MEDICARE, OTHER, SELFPAY ==
[2018-10-16 16:42] VITALS: BMI 27.3
== END ==
PROVIDERS: Family Provider Family Medicine; PCP Family Medicine; Referring Provider Family Medicine; Visit Provider Family Medicine
DX: R35.0 Frequency of micturition (principal)
CPT/HCPCS: 87086

== ENCOUNTER 2018-12-04 15:00 | Outpatient (RCR) | payer MEDICARE, OTHER, SELFPAY ==
[2018-10-16 16:42] VITALS: BMI 27.3
--- NOTE | 2018-11-19 11:35 | HP.PTEVAL_ITS ---
Patient's Visit Information CHRISTIAN ANNA is a 73 year old F referred to Physical Therapy by Weston Aviles MD with a diagnosis of R AYLIN. Date of Evaluation: 11/19/18 Physical Therapist: Oliverio Barth DPT - Visit Plan Frequency: 2-3x /Week Duration: 4-6 Weeks Plan: Start with R hip/core strengthening, stability in SLS activities. Progress gait control, progress from AD. - Subjective Findings: Pt. is here today for her initial evaluation with diagnosis of R AYLIN. DOS: 10/14/18. Pt. had 1 week on inpatient rehab. Pt. is back home and reports she is doing very well. Pt. reports no symptoms currenly. Pt. denies N/T in either LE. Pt. reports no pain currently. Pt. is no longer using AD. PT. reports doing hip abduction exercises at home, but other than that she is slowly increasing her walking. Pt. is able to complete most ADLs without issues, but has icnreased difficulty with IADLs. Pt. is not back to driving yet. Pt. is hopeful to get back to all recreational and gardening activties without limitations. - Objective POSTURE: Pt. is able to stand without AD wtih slight increase in wt. shift to L side. PALPATION: Pt. has slight tenderness to anterior R hip, but no pain else where.Pt. has normal healing incison, no signs of infection. Negative girish's sign bilaterally. NEURO: normal sensation and DTR bilaterally. pt. is able to rise on heels and toes without issues. ROM: LLE- hip- normal motion withotu pain. RLE- hip- flexion 110deg did not force, abd 45deg, ext 10deg, DNT ER/IR. MMT: LLE- ankle 5/5 throughout; knee- ext 5/5, flexino 5/5; hip- flexion 4+/5, abd 4/5, ext 4/5. RLE- ankle 5/5 throughot; knee- ext 4+/5, flexion 4+/5; hip- flexion 4-/5 and 4/5, ext 4/5. Core strength- poor. GAIT: Pt. ambulates with FWW without LOB and good step length. Pt. has increased lateral hip sway, but minimal. STAIRS: Pt. is able to negotiate with 2 HR with reciprocal pattern. - Goals Goal 1:: Pt. to be I with HEP. Goal Time Frame: 4-6 Weeks Goal 2:: Pt. to have increased RLE strength increased by 1/2 grade of all effected musculature. Goal Time Frame: 4-6 Weeks Goal 3:: Pt. to ambulate unlimited distances with normalized gait pattern without AD and no pain. Goal Time Frame: 4-6 Weeks Goal 4:: Pt. to negotiate steps with recirpcoal pattern with 1 HR without increase in symptoms. Goal Time Frame: 4-6 Weeks Goal 5:: Pt. to sleep throuhgout the night without increase in symptoms. Goal Time Frame: 4-6 Weeks - Rehabilitation Potential Physical Therapy Diagnosis: Pt. has signs and symptoms consistent with R AYLIN with subsequent hypombility, weakness, difficulty with gait and decreased functional mobility. Pt. would benefit from PT to address above limitations. Rehabilitation Potential: Good - Anticipated Interventions Patient/Client Instruction: Educate patient on: Condition, Plan of Care, Risk Factors, Benefits of Fitness Program For the Purpose of:: To improve health and function, To foster healthy habits, To improve decision making, To facilitate caregiver knowledge, To prevent re- injury, To improve ability to perform tasks related to life management Therapeutic Exercise to Include: Strength training, Power training, Endurance training, Balance training, Coordination, Postural training, Flexibilty training, Gait and locomotor training, Active ROM, Dynamic Lumbar Stabilization For the Purpose of:: To increase ROM, To improve nutrient delivery to tissue, To increase oxygenation perfusion, To improve muscle performance and motor function, To improve ability to perform ADL's, To improve performance and in dependence with ADL's, To improve gait and locomotor functions, To improve health of tissue, To decrease soft tissue restriction, To increase flexibility/ROM IF ES: Yes Cryotherapy (ice pack, ice massage): Yes For the Purpose of:: To decrease pain, To decrease swelling/inflammation, To improve nutrient delivery to tissue Thank you for the opportunity to evaluate your patient. For Medicare and Medicare HMO plans, please review the plan of care and approve it. It will need to be FAXED BACK to us at [phone] for Medicare purposes. For Medicare only, by signing this I certify the plan of care. Please let me know if there are questions or concerns regarding this plan of care. Physician Signature: Date:
== END 2018-12-04 19:00 | disposition home or self-care (01) ==
LOC: PT 15:00
PROVIDERS: Family Provider Family Medicine; PCP Family Medicine; Referring Provider Psychiatry & Neurology Neurology; Visit Provider Psychiatry & Neurology Neurology
DX: Z98.890 Other specified postprocedural states (principal); R35.0 Frequency of micturition
CPT/HCPCS: 87086; 87088; 87186; 97110; 97161

== ENCOUNTER 2018-12-15 13:19 | Emergency (ER) | payer MEDICARE, OTHER, SELFPAY ==
[2018-10-16 16:42] VITALS: BMI 27.3
[2018-12-15 13:20] VITALS: BP 115/65; PULSE 78; PULSE 79; RESP 16; RESP 18; TEMP 36.5; O2SAT 92; O2SAT 94; BMI 27.1
--- NOTE | 2018-12-15 13:23 | EKG12_ITS ---
Test Reason : CP Blood Pressure : / mmHG Vent. Rate : 076 BPM Atrial Rate : 076 BPM P-R Int : 156 ms QRS Dur : 074 ms QT Int : 378 ms P-R-T Axes : 037 -18 041 degrees QTc Int : 425 ms Normal sinus rhythm Normal ECG Confirmed by PETRA IBRAHIM ([id number]), editorial director JOANA BULLOCK ([id number]) on 12/17/2018 8:35:39 AM Referred By: KRISTINA/ALEXEY Confirmed By:PETRA IBRAHIM
--- NOTE | 2018-12-15 13:23 | RAD_ITS ---
STUDY: X-RAY CHEST REASON FOR EXAM: Female, 73 years old. Left-sided upper chest pain. TECHNIQUE: Single AP portable view of the chest. COMPARISON: Comparison is made with prior study dated April 16, 2018. FINDINGS: EKG electrodes are seen. The lungs are clear and expanded. There is no demonstrated pleural abnormality. Normal size heart. Normal mediastinum and chano. Normal visualized pulmonary arteries. There is atherosclerotic tortuosity of the aortic arch and descending thoracic aorta. Normal visualized thoracic spine. Normal visualized ribs, clavicles, and shoulders. There is no demonstrated abnormality of the visualized soft tissue structures of the upper abdomen. RAD/Chest 1 View (Portable) IMPRESSION: No acute abnormality is present. Electronically Signed: Reza Stevens, at 14:56 EDT , Service support ,
[2018-12-15 13:47] LABS: Absolute Lymphocyte Count 2.07 X10^3/ul (0.83-4.51); Absolute Neutrophil Count 1.9 X10^3/uL (2.0-7.7); Basophil# 0.03 X10^3/uL; Basophil% 0.7 % (0-1); Eosinophil# 0.26 X10^3/uL; Eosinophils% 5.7 % (0-5); Hematocrit 39.5 % (37-47); Hemoglobin 13.1 g/dl (12.0-15.0); Lymphocyte # 2.07 X10^3/ul (4.0); Lymphocyte % 45.4 % (19-41); Mean Corp Hgb Conc 33.2 g/gl (32-36); Mean Corpuscular Hgb 28.2 pg (27.0-32.0); Mean Corpuscular Volume 85.1 fL (81-99); Mean Platelet Vol. 9.8 fl (6.2-12.0); Monocyte# 0.34 X10^3/uL; Monocyte% 7.5 % (0-10); Neutrophil # 1.86 X10^3/uL (2.7-7.7); Neutrophil % 40.7 % (47-70); Platelet Count 198 K/mm3 (150-450); RBC Distribution Width CV 15.8 % (11.6-14.6); RBC Distribution Width SD 49.5 fl (35.1-43.9); Red Blood Count 4.64 M/mm3 (4.2-5.4); White Blood Count 4.6 K/mm3 (4.4-11.0)
[2018-12-15 13:48] LABS: POSITIVE COUNT NO; POSITIVE DIFFERENTIAL NO; POSITIVE MORPHOLOGY NO
[2018-12-15 14:02] LABS: Anion Gap 7 (5-15); BUN 21 mg/dL (7-18); Calcium,Total 9.2 mg/dL (8.5-10.1); Chloride 105 mmol/L (98-107); Creatinine, Serum 0.84 mg/dL (0.55-1.02); EST Glomerular Filtration Rate 70 mL/min (>60); Est Glom Filt Rate - Afr Amer 85 mL/min (>60); Estimated Creatinine Clearance 47.87 ml/min; Glucose 93 mg/dL (74-106); Sodium Level 139 mmol/L (136-145)
[2018-12-15 14:23] VITALS: BP 104/65; PULSE 66; RESP 14; O2SAT 97
[2018-12-15 15:03] VITALS: BP 113/77; PULSE 69; RESP 12; O2SAT 97
--- NOTE | 2018-12-15 15:28 | CT_ITS ---
STUDY: CTA CHEST REASON FOR EXAM: Female, 73 years [address] RADIATION DOSAGE (If Supplied By Facility): CTDIvol = ( 11.54 ) mGy, DLP = ( 314.37 ) mGycm TECHNIQUE: The examination was performed with the intravenous administration of 75 IV Isovue 370. Post-processing of the angiographic images was performed, with multiplanar reformation and 3D reconstruction. Individualized dose optimization techniques were used for this CT. COMPARISON: None. FINDINGS: Normal enhancement of the main pulmonary artery and right and left pulmonary arteries. Normal enhancement of the bilateral peripheral pulmonary arteries. There is no demonstrated pulmonary embolism. Normal thoracic aorta and visualized great vessels. There is no demonstrated aortic dissection. Normal heart and pericardium. Normal mediastinum. Normal hilar regions. Normal visualized trachea and bronchi. The lungs are hyper expanded, with flattening of the hemidiaphragms. Normal pulmonary parenchyma. Normal pleura. Normal chest wall structures. Normal osseous structures. Normal visualized upper abdomen. CT/CTA Chest W/WO Contrast IMPRESSION: Normal CTA chest examination, without a demonstrated pulmonary embolism or arterial dissection. There are findings consistent with COPD. There is no evidence of acute chest disease. Follow-up Electronically Signed: Jesus Ozuna MD at 16:13 EDT , Service support ,
[2018-12-15] MEDS: 0.9% Normal Saline 1,000 ML 999 ML IV (16:07)
[2018-12-15 16:08] VITALS: BP 123/80; PULSE 63; RESP 16; O2SAT 97
--- NOTE | 2018-12-15 17:00 | ED.VISSUMM ---
- ER Visit Summary Date of Service: 12/15/18 Chief Complaint: Left-sided chest pain History of Present Illness: The patient is a 73 F no history of cardiac disease. Prior DVT and PE after knee surgery. Patient states that for the last week she is had constant left-sided chest pain worse with deep breathing. She denies it being associated with exertion. No nausea or diaphoresis. No dyspnea. Nothing makes it particularly better or worse except for deep breathing. She denies any leg pain or swelling. She has had a recent travel to [place] and recent hip replacement surgery on the right about 3 weeks ago. She has no known history of cardiac disease. She has had a recent URI and was treated with antibiotics. Physical Examination: Vital signs are stable. Afebrile pulse ox 97% room air no hypoxia. Patient is in no distress. HEENT exam unremarkable. Neck nontender. Lungs with auscultation bilaterally. Heart regular rhythm no murmur. Abdomen soft nontender normal bowel sounds no peritoneal signs. Chest wall nontender. Patient moving all 4 extremities. Neurovascular intact. Calves are nontender. Neurologically she is awake alert with no focal motor deficits. Test Results: Patient underwent a cardiac work-up. CBC normal. Chemistries normal. Troponin normal. EKG sinus rhythm rate of 76 no acute signs of AR or ischemia. Chest x-ray portable one view shows no acute abnormality read both by myself and the radiologist. Normal cardiac silhouette and mediastinum. Due to her prior history of PEs recent travel and surgery I did do a CTA of her chest and is unremarkable. Emergency Department Course and Treatment: Patient's chest pain is not reproducible. Is not exertional. And the CTA ruled out a PE. Patient be discharged home with follow-up with her primary care physician. Repeat exam patient is doing well at 1645. She and I went over all her test results she is comfortable being discharged. Treatment Plan: Follow-up with PCP. Return if worse. Disposition: Discharge Impression: Acute chest pain uncertain etiology This note was generated with Par[employer]o dictation software. It may contain incorrect words, spelling, and punctuation that were not noted in review of the chart prior to signing ED Disposition - Plan for ED Patient: Referrals: Lilo Grullon MD [Primary Care Provider] -
--- NOTE | 2018-12-15 17:09 | ED.DCSUM_ITS ---
- ER Visit Summary Date of Service: 12/15/18 Chief Complaint: Left-sided chest pain History of Present Illness: The patient is a 73 F no history of cardiac disease. Prior DVT and PE after knee surgery. Patient states that for the last week she is had constant left-sided chest pain worse with deep breathing. She denies it being associated with exertion. No nausea or diaphoresis. No dyspnea. Nothing makes it particularly better or worse except for deep breathing. She denies any leg pain or swelling. She has had a recent travel to [place] and recent hip replacement surgery on the right about 3 weeks ago. She has no known history of cardiac disease. She has had a recent URI and was treated with antibiotics. Physical Examination: Vital signs are stable. Afebrile pulse ox 97% room air no hypoxia. Patient is in no distress. HEENT exam unremarkable. Neck nontender. Lungs with auscultation bilaterally. Heart regular rhythm no murmur. Abdomen soft nontender normal bowel sounds no peritoneal signs. Chest wall nontender. Patient moving all 4 extremities. Neurovascular intact. Calves are nontender. Neurologically she is awake alert with no focal motor deficits. Test Results: Patient underwent a cardiac work-up. CBC normal. Chemistries normal. Troponin normal. EKG sinus rhythm rate of 76 no acute signs of MS or ischemia. Chest x-ray portable one view shows no acute abnormality read both by myself and the radiologist. Normal cardiac silhouette and mediastinum. Due to her prior history of PEs recent travel and surgery I did do a CTA of her chest and is unremarkable. Emergency Department Course and Treatment: Patient's chest pain is not reproducible. Is not exertional. And the CTA ruled out a PE. Patient be discharged home with follow-up with her primary care physician. Repeat exam patient is doing well at 1645. She and I went over all her test results she is comfortable being discharged. Treatment Plan: Follow-up with PCP. Return if worse. Disposition: Discharge Impression: Acute chest pain uncertain etiology This note was generated with HeatGenie dictation software. It may contain incorrect words, spelling, and punctuation that were not noted in review of the chart prior to signing ED Disposition - Plan for ED Patient: Referrals: Lilo Grullon MD [Primary Care Provider] -
--- NOTE | 2018-12-15 17:09 | ED.VISSUMM ---
- ER Visit Summary Date of Service: 12/15/18 Chief Complaint: [] History of Present Illness: The patient is a 73 F [] Physical Examination: [] Test Results: [] Emergency Department Course and Treatment: [] Treatment Plan: [] Disposition: [] Impression: [] This note was generated with CallApp dictation software. It may contain incorrect words, spelling, and punctuation that were not noted in review of the chart prior to signing ED Disposition - Plan for ED Patient: Referrals: iLlo Grullon MD [Primary Care Provider] -
--- NOTE | 2018-12-15 17:09 | ED.DEP ---
ED Disposition - Plan for ED Patient: Disposition: Home or Assisted Living Instructions: ED Chest Pain Atypical Unkn Cause Referrals: Lilo Grullon MD [Primary Care Provider] - As soon as possible Additional Instructions: All your tests were normal today including her chest x-ray and CAT scan of your chest. This does not appear to be cardiac chest pain nor is any pulmonary embolus. Call and follow-up your primary care physician. Return to ER if you are feeling worse.
[2018-12-15 17:27] VITALS: BP 120/74; PULSE 64; RESP 16; O2SAT 97
== END 2018-12-15 17:28 | disposition home or self-care (01) ==
PROVIDERS: Emergency Provider Emergency Medicine; Family Provider Family Medicine; PCP Family Medicine
DX: R07.89 Other chest pain (principal); Z86.718 Personal history of other venous thrombosis and embolism; Z86.711 Personal history of pulmonary embolism
CPT/HCPCS: 71045; 71275; 80048; 84484; 85025; 93005; 96360; 99284; J7030; Q9967; A4216

== ENCOUNTER → 2019-04-28 | Outpatient (CLI) | payer MEDICARE, OTHER, SELFPAY ==
--- NOTE | 2019-04-28 12:59 | BI_ITS ---
BILATERAL DIGITAL MAMMOGRAM WITH TOMOSYNTHESIS: Mediolateraloblique and craniocaudal views demonstrate no evidence of dominant parenchymal masses. No cluster of microcalcification or architectural distortion is seen. No evidence of skin thickening. No significant change since 11/21/2016. Breast Density: There are scattered areas of fibroglandular density. CAD was used to assist in final assessment. IMPRESSION: NORMAL MAMMOGRAM BILATERALLY. ASSESSMENT CATEGORY: BIRADS Category 1: Negative. A letter regarding these results will be sent to the patient by the facility within 30 days. FOLLOW UP RECOMMENDATION: Yearly follow up mammogram recommended. (A) Approximately 10% of breast cancers are not detected by mammography. A normal mammogram should not delay biopsy of a clinically suspicious abnormality. Electronically Signed: William Brooks, at 17:47 EDT Tel , Service support , BI/SCREEN MAMM (CAD) W/GINO JACKSON
== END | disposition home or self-care (01) ==
LOC: OPBI 12:57
PROVIDERS: Family Provider Family Medicine; PCP Family Medicine; Referring Provider Family Medicine; Visit Provider Family Medicine
DX: Z12.31 Encounter for screening mammogram for malignant neoplasm of breast (principal)
CPT/HCPCS: 77063; 77067

== ENCOUNTER 2019-07-06 07:47 | Day surgery (SDC) | payer MEDICARE, OTHER, SELFPAY ==
--- NOTE | 2019-06-09 02:49 | HP_ITS ---
Intake Vital Signs 06/09/19 Body Mass Index (BMI) 27.1 06/09/19 Height 5 ft 3.5 in 06/09/19 Weight: 162 lb 1 oz 06/09/19 Body Mass Index (BMI) 28.2 06/09/19 Blood Pressure 114/75 06/09/19 Blood Pressure Location Rt brachial 06/09/19 Blood Pressure Position Sitting 06/09/19 Respiratory Rate 20 H 06/09/19 Pulse Rate 70 06/09/19 Pulse Ox 96 05/26/19 Body Mass Index (BMI) 27.1 Intake Visit Reasons: C-Scope Consult Chief Complaint: discuss colonoscopy Sports Doctor Required: No Is patient in pain?: No Allergies hydrocodone bitartrate [From Vicodin] Adverse Reaction (Verified 06/09/19 14:10) Nausea Metronidazole HCl [From Flagyl] Adverse Reaction (Verified 06/09/19 14:10) Other oxycodone HCl [From Percocet] Adverse Reaction (Verified 06/09/19 14:10) Nausea scopolamine Adverse Reaction (Verified 06/09/19 14:10) Other Medications Calcium Carb/Vitamin D [Caltrate-600 With Vit D Tab] 1,000 mg PO BIDCM 10/13/14 [History Confirmed 06/09/19] Multivitamins,Therapeutic [Multivitamin] 1 tab PO DAILY 10/13/14 [History Confirmed 06/09/19] Duloxetine Hcl [Cymbalta] 30 mg PO DAILY 09/17/18 [History Confirmed 06/09/19] Acetaminophen [Tylenol] 1,000 mg PO Q8 10/16/18 [History Confirmed 06/09/19] Aspirin [Aspirin, Baby] 81 mg PO BIDCM 10/16/18 [History Confirmed 06/09/19] Famotidine [Pepcid] 20 mg PO DAILY 10/16/18 [History Confirmed 06/09/19] Senna/Docusate Sodium [Senokot-S] 2 tab PO BID PRN tab 10/22/18 [Rx Confirmed 06/09/19] Tamsulosin HCl [Flomax] 0.4 mg PO DAILY@1730 #30 cap 10/22/18 [Rx Confirmed 06/09/19] Is last menstrual period known: No Post menopausal: Yes Patient : No PFSH Medical History (Updated 06/09/19 @ 14:48 by Oliver Puentes MD) Change in bowel habit (Acute) Rheumatoid arthritis (Chronic) Pyelonephritis (Acute) History of pulmonary embolism (Chronic) Anxiety and depression (Chronic) Internal hemorrhoid (Resolved) Chronic back pain (Chronic) Osteoarthritis (Chronic) History of Clostridium difficile (Chronic) Sciatic neuropathy (Chronic) Compression fx, lumbar spine (Chronic) Rheumatoid arthritis (Acute) Erosion of suburethral sling (Ruled-out) Surgical History (Updated 06/09/19 @ 14:29 by Cici Akbar) Status post total right knee replacement (Chronic) History of right hip replacement (Acute) History of rotator cuff surgery (Acute) history of bladder sling (Ruled-out) Family History (Updated 06/09/19 @ 14:28 by Cici Akbar) Brother Cancer Social History (Updated 06/09/19 @ 14:50 by Oliver Puentes MD) Smoking Status: Never smoker HPI HPI HPI: CHRISTIAN ANNA, is a 73 F who presents to the office today for HPI HPI Surgical H&P: Yes HPI: CHRISTIAN ANNA, is a 73 F who presents to the office today for surgical consultation regarding a change of bowel habits. Patient's previous colonoscopy was June 2016. Biopsies demonstrated microcytic colitis at that time. She was placed on balsalazide 750 mg 3 times a day. She was on that for some indeterminate period of time that her symptoms seem to resolve. She currently denies bright red blood per rectum or melena. She is complaining however of pellet sized stool then followed by a more liquidy mucousy looser stool with mucus which is hard to clean. There is no family history of colon cancer. Her weight has been slowly increasing Exam Const General: cooperative, comfortable, no acute distress Nutritional Appearance: average body habitus Orientation: alert, awake [facility] Head: normal to inspection Resp Effort & Inspection: normal respiratory effort Auscultation: clear to auscultation bilaterally Cardio Rate: regular rate GI Palpation: soft, no hepatosplenomegaly Auscultation: normal bowel sounds Neuro General: alert Extrem General: no calf tenderness bilaterally Psych Affect: normal affect Assessment & Plan Problems 1. Change in bowel habit R19.4 Plan Acute change of bowel habits. Not sure whether this could represent an acute recurrence of her collagenous colitis or whether she could have inflammatory stricturing. I do recommend to her a colonoscopy with possible biopsy or polypectomy as indicated. She is aware of the technique, benefits, risks, alternatives. I do anticipate proceeding with monitored anesthesia care. She has had an opportunity to ask and have questions answered. I appreciate the ongoing opportunity of assisting with her surgical care. CC: Dr Lilo Puentes M.D., F.A.C.S. Coding Level of Care Code Off vis,est,level 3 Diagnoses Change in bowel habit R19.4 06/09/19 7540 <Electronically signed by Oliver mendoza MD> Date _ Oliver Puentes MD I have re-examined the patient. There are no clinical changes since date of exam.
[2019-06-09 14:30] VITALS: BMI 27.1
[2019-07-06] VITALS (7 sets, daily range): BP systolic 92–114; BP diastolic 51–73; PULSE 56–65; RESP 16; TEMP 36.2–36.6; O2SAT 94–100; BMI 28.0
--- NOTE | 2019-07-06 | COLBX_PTH ---
PATIENT: CHRISTIAN ANNA LOC: EN U#:[id number] AGE/SX: 73/F ROOM: RE07/06/[address]: Dr. Oliver Puentes MD : 1945 BED: DIS: 07/06/2019 SPEC #: [id number] RECD: 07/06/19 13:20 STATUS: EVELYN REOtoniel #: [id number] KAREN: 07/06/19 00:[address]: Oliver Puentes DEPT: SURGICAL PATHOLOGY RECD BY: Rosendo Carroll ENTERED: 07/06/19 13:20 SP TYPE: COLON BX OTHR DR: Dr. Lilo Grullon MD Tissues: A - Cecum, NOS B - COLON BIOPSY C - Sigmoid colon biopsy Procedures: Surgery Specimen Level IV HEADER OPERATION: Colonoscopy (MAC) PRE-OP DIAGNOSIS: Change in bowel habits TISSUE SUBMITTED: A - Cecum biopsy, B - Random biopsies, C - Sigmoid biopsy of polyp MICROSCOPIC DIAGNOSIS A. Cecum, biopsy: Fragments of colonic mucosa, no pathologic diagnosis. See comment. B. Colon, random biopsy: Fragments of colonic mucosa, no pathologic diagnosis. C. Sigmoid polyp, biopsy: Fragments of colonic mucosa with focal changes consistent with inflammatory polyp. SJ:israel 07/07/19 COMMENT A. Prominent lymphoid aggregates are noted, favor benign. MICROSCOPIC DESCRIPTION Slides are reviewed. GROSS DESCRIPTION A - Received in fixative is one container labeled with the patient's name and designated cecum biopsy. The specimen consists of multiple irregular fragments of light garza soft tissue that in aggregate measure 0.5 x 0.4 x 0.1 cm. The specimen is totally submitted in one cassette. B - Received in fixative is one container labeled with the patient's name and designated random biopsy. The specimen consists of multiple irregular fragments of light garza soft tissue that in aggregate measure 1 x 0.5 x 0.1 cm. The specimen is totally submitted in one cassette. C - Received in fixative is one container labeled with the patient's name and designated sigmoid biopsy of polyp. The specimen consists of multiple irregular fragments of light garza soft tissue that in aggregate measure 1 x 0.3 x 0.1 cm. The specimen is totally submitted in one cassette. / DAVIS:israel 07/06/19 TC:5 CPT: 57835 x3
[2019-07-06] MEDS: Lactated Ringers 1,000 ML 100 ML IV (08:23)
--- NOTE | 2019-07-06 09:35 | OP.COLON_ITS ---
Patient Name: Brayan Suggs Procedure Date: 07/06/2019 9:06 AM Date of : 1945 Age: 73 Procedure: Colonoscopy Indications: Change in bowel habits Providers: Oliver Puentes MD Referring MD: Lilo Grullon Medicines: See the Anesthesia note for documentation of the administered medications Patient Profile: Last Colonoscopy: June 2016. Complications: No immediate complications. Procedure: Pre-Anesthesia Assessment: - Prior to the procedure, a History and Physical was performed, and patient medications and allergies were reviewed. The patient's tolerance of previous anesthesia was also reviewed. The risks and benefits of the procedure and the sedation options and risks were discussed with the patient. All questions were answered, and informed consent was obtained. Prior Anticoagulants: The patient has taken no previous anticoagulant or antiplatelet agents. ASA Grade Assessment: II - A patient with mild systemic disease. After reviewing the risks and benefits, the patient was deemed in satisfactory condition to undergo the procedure. After I obtained informed consent, the scope was passed under direct vision. Throughout the procedure, the patient's blood pressure, pulse, and oxygen saturations were monitored continuously. The pediatric colonoscope was introduced through the anus and advanced to the cecum, identified by appendiceal orifice and ileocecal valve. The colonoscopy was performed without difficulty. The patient tolerated the procedure well. The quality of the bowel preparation was good. The ileocecal valve and the appendiceal orifice were photographed. Scope In: 9:14:33 AM Scope Withdrawal Time 0 hours 9 minutes 51 seconds Scope Out: 9:29:23 AM Total Procedure Duration Time 0 hours 14 minutes 50 seconds Findings: Hemorrhoids were found on perianal exam. A 7 mm polyp was found in the proximal sigmoid colon. The polyp was sessile. The polyp was removed with a cold snare. Resection and retrieval were complete. The exam was otherwise without abnormality. Biopsies for histology were taken with a cold forceps from the entire colon for evaluation of microscopic colitis. Impression: - Hemorrhoids found on perianal exam. - One 7 mm polyp in the proximal sigmoid colon, removed with a cold snare. Resected and retrieved. - The examination was otherwise normal. - Biopsies were taken with a cold forceps from the entire colon for evaluation of microscopic colitis. Slight granularity of the cecum noted--see images--biopsy obtained Recommendation: - Discharge patient to home. - Resume previous diet. - Continue present medications. - Repeat colonoscopy in 5 years for surveillance. - Telephone my office for pathology results in 1 week. Procedure Code(s): --- Professional --- 42538, Colonoscopy, flexible; with removal of tumor(s), polyp(s), or other lesion(s) by snare technique 42027, 59, Colonoscopy, flexible; with biopsy, single or multiple Diagnosis Code(s): --- Professional --- K64.9, Unspecified hemorrhoids D12.5, Benign neoplasm of sigmoid colon R19.4, Change in bowel habit CPT copyright 2017 [employer]. All rights reserved. The codes documented in this report are preliminary and upon remote inpatient coder review may be revised to meet current compliance requirements. Oliver Puentes MD 07/06/2019 9:35:25 AM This report has been signed electronically. Number of Addenda: 0 Note Initiated On: 07/06/2019 9:06 AM
== END 2019-07-06 10:24 | disposition home or self-care (01) ==
LOC: EN 07:48 → AC 07:50
PROVIDERS: Family Provider Family Medicine; PCP Family Medicine; Referring Provider Family Medicine; Visit Provider Surgery
PROC: 0DJD8ZZ Inspection of Lower Intestinal Tract, Via Natural or Artificial Opening Endoscopic (ICD-10-PCS; CPT 45378; principal; 2019-07-06 08:55)
DX: D12.5 Benign neoplasm of sigmoid colon (principal); K64.9 Unspecified hemorrhoids; M06.9 Rheumatoid arthritis, unspecified; F41.9 Anxiety disorder, unspecified; F32.9 Major depressive disorder, single episode, unspecified; M19.90 Unspecified osteoarthritis, unspecified site; G47.30 Sleep apnea, unspecified; Z86.718 Personal history of other venous thrombosis and embolism; Z86.711 Personal history of pulmonary embolism; Z79.82 Long term (current) use of aspirin; Z79.899 Other long term (current) drug therapy
CPT/HCPCS: 45380; 88305; J7120

== ENCOUNTER → 2020-03-20 | Outpatient (CLI) | payer MEDICARE, OTHER, SELFPAY ==
[2019-07-06 08:12] VITALS: BMI 28.0
[2020-03-20 18:27] LABS: Absolute Lymphocyte Count 1.85 X10^3/uL (0.83-4.51); Basophil# 0.05 X10^3/uL; Basophil% 1.1 % (0-1); Eosinophil# 0.24 X10^3/uL; Eosinophils% 5.3 % (0-5); Hematocrit 41.8 % (37-47); Hemoglobin 13.5 g/dL (12.0-15.0); Lymphocyte # 1.85 X10^3/ul (4.0); Lymphocyte % 40.5 % (19-41); Mean Corp Hgb Conc 32.3 g/dL (32-36); Mean Corpuscular Hgb 28.4 pg (27.0-32.0); Mean Corpuscular Volume 87.8 fL (81-99); Mean Platelet Vol. 11.1 fl (6.2-12.0); Monocyte# 0.43 X10^3/uL; Monocyte% 9.4 % (0-10); NRBC Flagged by Analyzer 0 % (0-5); Neutrophil # 1.99 X10^3/uL (2.7-7.7); Neutrophil % 43.5 % (47-70); Platelet Count 200 K/mm3 (150-450); RBC Distribution Width CV 14.2 % (11.6-14.6); RBC Distribution Width SD 45.7 fl (35.1-43.9); Red Blood Count 4.76 M/mm3 (4.2-5.4); White Blood Count 4.6 K/mm3 (4.4-11.0)
[2020-03-20 18:37] LABS: ALB/GLOB Ratio 0.9 RATIO (0.9-2.4); AST(SGOT) 18 U/L (15-37); Alanine Aminotransfer ALT/SGPT 23 U/L (13-56); Albumin, Serum 3.3 g/dL (3.2-5.0); Alkaline Phosphatase 68 U/L (45-117); Anion Gap 4 (5-15); BUN 17 mg/dL (7-18); BUN/Creat Ratio 22.8 RATIO (10-20); Chloride 107 mmol/L (98-107); Creatinine, Serum 0.75 mg/dL (0.55-1.02); EST Glomerular Filtration Rate 80 mL/min (>60); Est Glom Filt Rate - Afr Amer 97 mL/min (>60); Globulin 3.6 g/dL (2.2-4.2); Glucose 86 mg/dL (74-106); Potassium 3.8 mmol/L (3.5-5.1); Protein, Total 6.9 g/dL (6.4-8.2); Sodium Level 140 mmol/L (136-145); Thyroid Stim Hormone (TSH) 2.63 uIU/mL (0.358-3.74)
== END | disposition home or self-care (01) ==
LOC: MFPLAB 14:50
PROVIDERS: PCP Family Medicine; Referring Provider Family Medicine; Visit Provider Family Medicine
DX: A09 Infectious gastroenteritis and colitis, unspecified (principal); R19.7 Diarrhea, unspecified
CPT/HCPCS: 36415; 80053; 84443; 85025

== ENCOUNTER → 2020-03-24 | Outpatient (CLI) | payer MEDICARE, OTHER, SELFPAY ==
[2019-07-06 08:12] VITALS: BMI 28.0
== END | disposition home or self-care (01) ==
LOC: LAB.FUTURE 18:20
PROVIDERS: PCP Family Medicine; Referring Provider Family Medicine; Visit Provider Family Medicine
DX: A09 Infectious gastroenteritis and colitis, unspecified (principal); R19.7 Diarrhea, unspecified

== ENCOUNTER → 2020-05-01 | Outpatient (CLI) | payer MEDICARE, OTHER, SELFPAY ==
[2019-07-06 08:12] VITALS: BMI 28.0
--- NOTE | 2020-05-01 13:34 | BI_ITS ---
MAMMOGRAPHY - BILATERAL SCREENING REASON FOR EXAM: Female, 74 years old. Routine annual screening examination. PERTINENT HISTORY: Aunt with breast cancer. TECHNIQUE: Digital bilateral breast gino (3D mammographic acquisition) in the CC and MLO projections. 2-D mediolateral oblique (MLO) and craniocaudad (CC) views of both breasts were obtained. CAD: Full Field Digital Mammography with Computer Added Detection was performed. COMPARISON: Comparison is made with prior study dated 04/28/2019 and 11/21/2016. FINDINGS: Breast Composition: There are scattered areas of fibroglandular density. There are no dominant masses or suspicious calcifications. No other significant abnormalities are identified. There has been no significant change since the prior study. BI/SCREEN MAMM (CAD) W/GINO BILAT IMPRESSION: Stable bilateral screening mammogram. Yearly follow-up mammogram recommended. (A) ASSESSMENT CATEGORY: BIRADS Category 1: Negative. A letter regarding these results will be sent to the patient by the facility within 30 days. Approximately 10% of breast cancers are not detected by mammography. A normal mammogram should not delay biopsy of a clinically suspicious abnormality. [id number] Electronically Signed: Reza Stevens, at 9:02 EDT , Service support ,
== END | disposition home or self-care (01) ==
LOC: OPBI 13:32
PROVIDERS: PCP Family Medicine; Referring Provider Family Medicine; Visit Provider Family Medicine
DX: Z12.31 Encounter for screening mammogram for malignant neoplasm of breast (principal)
CPT/HCPCS: 77063; 77067

== ENCOUNTER → 2020-12-29 16:40 | Outpatient (CLI) | payer MEDICARE, OTHER, SELFPAY ==
[2019-07-06 08:12] VITALS: BMI 28.0
--- NOTE | 2020-12-29 16:44 | RAD_ITS ---
STUDY: X-RAY - CERVICAL SPINE REASON FOR EXAM: Female, 75 years old. NECK PAIN TECHNIQUE: 5 view(s) of the cervical spine were obtained. COMPARISON: None FINDINGS: Normal anterior atlantoaxial articulation. Normal odontoid process. Normal cervical lordosis. There is multi-level endplate spondylosis. There is multi-level degenerative disc disease with multilevel disc space narrowing. There is multi-level osseous foraminal stenosis. The soft tissue structures are unremarkable. RAD/Cerv Spine 4 or 5 Views IMPRESSION: Moderate degenerative disc disease lower cervical spine. MRI would be useful. Electronically Signed: Jw Valle MD at 11:45 EDT Tel , Service support ,
== END ==
PROVIDERS: PCP Family Medicine; Referring Provider Family Medicine; Visit Provider Family Medicine
DX: M54.2 Cervicalgia (principal)
CPT/HCPCS: 72050

== ENCOUNTER → 2021-04-03 16:14 | Outpatient (CLI) | payer MEDICARE, OTHER, SELFPAY ==
[2021-04-03 18:03] LABS: Erythrocyte Sedimentation Rate 13 mm/hr (0-30)
[2021-04-03 18:18] LABS: CRP 6.86 mg/L (0.0-3.0); Rheumatoid Factor < 10.0 IU/mL (<15)
[2021-04-05 21:07] LABS: ANTINUCLEAR ANTIBODIES DIRECT Negative (Negative)
== END ==
PROVIDERS: PCP Family Medicine; Referring Provider Family Medicine; Visit Provider Family Medicine
DX: M06.4 Inflammatory polyarthropathy (principal)
CPT/HCPCS: 36415; 85652; 86038; 86140; 86431

== ENCOUNTER → 2021-05-01 13:04 | Outpatient (CLI) | payer MEDICARE, OTHER, SELFPAY ==
[2021-05-03 16:10] LABS: Endomysial Antibody IgA Negative (Negative)
[2021-05-03 16:35] LABS: Deamidated Gliadin IgA 4 units (0-19); Deamidated Gliadin IgG 1 units (0-19); Immunoglobulin A 169 mg/dL (64-422); t-Transglutaminase IgA <2 U/mL (0-3)
== END ==
PROVIDERS: PCP Family Medicine; Referring Provider Family Medicine; Visit Provider Family Medicine
DX: R19.7 Diarrhea, unspecified (principal)
CPT/HCPCS: 36415; 82784; 83516; 86255

== ENCOUNTER → 2021-05-16 09:10 | Outpatient (CLI) | payer MEDICARE, OTHER, SELFPAY | PROVIDERS: PCP Family Medicine; Referring Provider Family Medicine; Visit Provider Family Medicine | DX: R19.7 Diarrhea, unspecified (principal) | CPT/HCPCS: 82274; 83630; 83986; 87493; 87506 ==

== ENCOUNTER → 2021-05-22 10:38 | Outpatient (CLI) | payer MEDICARE, OTHER, SELFPAY ==
[2021-05-22 11:12] LABS: Erythrocyte Sedimentation Rate 16 mm/hr (0-30)
[2021-05-25 15:34] LABS: Immunoglobulin E 7 IU/mL (6-495)
== END ==
PROVIDERS: PCP Family Medicine; Referring Provider Internal Medicine Gastroenterology; Visit Provider Internal Medicine Gastroenterology
DX: R19.4 Change in bowel habit (principal)
CPT/HCPCS: 36415; 82785; 85652; 86140

== ENCOUNTER 2021-05-28 07:44 | Day surgery (SDC) | payer MEDICARE, OTHER, SELFPAY ==
[2021-05-25 15:37] LABS: Giardia Lamblia, Stool EIA Negative (Negative)
[2021-05-27 08:07] LABS: Calprotectin, Stool 129 ug/g (0-120)
--- NOTE | 2021-05-28 | GASB_PTH ---
PATIENT: CHRISTIAN ANNA LOC: EN U#:[id number] AGE/SX: 75/F ROOM: RE05/28/[address]: Dr. Godwin Alvarez DO : 1945 BED: DIS: 05/28/2021 SPEC #: [id number] RECD: 05/28/21 12:22 STATUS: EVELYN REOtoniel #: [id number] KAREN: 05/28/21 00:[address]: Godwin Alvarez DEPT: SURGICAL PATHOLOGY RECD BY: Rosendo Carroll ENTERED: 05/28/21 13:35 SP TYPE: Gastric Bx OT DR: Dr. 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 pylori, B - Duodenum biopsy, C - Terminal ileum biopsy, D - Random colonic biopsy MICROSCOPIC DIAGNOSIS A. Antrum, biopsy: Mild gastritis. See microscopic description and comment. B. Duodenum, biopsy: Fragments of duodenal mucosa, no pathologic diagnosis. C. Terminal ileum, biopsy: Fragments of small intestinal mucosa, no pathologic diagnosis. D. Colon, random biopsy: Consistent with lymphocytic (microscopic) and collagenous colitis. See comment. SJ:israel 05/29/2021 COMMENT A. The results of immunohistochemistry for Helicobacter pylori will be reported separately ([id number]). D. Trichrome stain with matched control is used in the evaluation of the specimen and shows focal thickening with subepithelial collagen band. MICROSCOPIC DESCRIPTION Slides are reviewed. A. The specimen shows fragments of gastric mucosa with chronic inflammatory cell infiltrates in the lamina propria consisting of lymphocytes and plasma cells, consistent with mild chronic gastritis. GROSS DESCRIPTION A - Received in fixative is one container labeled with the patient's name and designated antrum biopsy. The specimen consists of multiple irregular fragments of light garza soft tissue that in aggregate measure 0.6 x 0.3 x 0.1 cm. The specimen is totally submitted in one cassette. B - Received in fixative is one container labeled with the patient's name and designated duodenum. The specimen consists of multiple irregular fragments of light garza soft tissue that in aggregate measure 0.8 x 0.3 x 0.1 cm. The specimen is totally submitted in one cassette. C - Received in fixative is one container labeled with the patient's name and designated terminal ileum. The specimen consists of one irregular fragment of light garza soft tissue that measures 0.3 x 0.3 x 0.1 cm. The specimen is totally submitted in one cassette. D - Received in fixative is one container labeled with the patient's name and designated random colonic biopsy. The specimen consists of multiple irregular fragments of light garza soft tissue that in aggregate measure 2 x 0.5 x 0.1 cm. The specimen is totally submitted in one cassette. / SJ:rg 05/28/21 TC:4 CPT: 02332 x4, 96267
[2021-05-28 08:14] VITALS: BP 110/76; PULSE 79; RESP 16; TEMP 36.4; O2SAT 99; BMI 28.5
[2021-05-28] MEDS: Lactated Ringers 1,000 ML 15 ML IV (08:45)
--- NOTE | 2021-05-28 09:00 | HP.PCM_ITS ---
History and Physical Date of Admission: 05/28/21 HPI HPI Chief Complaint: discuss colonoscopy Details: CHRISTIAN ANNA, is a 75 F who presents to the office today for She has been having difficulty with soup consistency urgent diarrhea with incontinence for the last two weeks. Prior flares noted before with this being the worst instance. Noted blood in stool when having diarrhea. Has tried BRAT diet recently however this constipates her. Stool studies performed and normal. History of CDiff. Colonoscopy performed with Dr. Puentes who told her she has colitis and referred her to this office. ROS Const Constitutional: Positive for fatigue Gastro GI: Positive for abdominal pain, change in bowel habits, diarrhea, heartburn and Blood in stool Musc Musculoskeletal: Positive for back pain, stiffness and Arthritis Endo Endocrine: Positive for fatigue and increased urine leakage Sotero/Lymp Hematologic/Lymphatic: Positive for easy bruising Exam Const General: cooperative and comfortable Nutritional Appearance: average body habitus and well nourished HENMT Head: normal to inspection Ears: hearing grossly normal bilaterally Nose: external nose normal Face and sinus: normal facial exam Mouth: oral mucosae normal Throat: posterior oropharynx normal Eyes General: appearance normal, both eyes and all related structures Neck Neck: normal visual inspection Chest Chest palpation & inspection: normal inspection of the chest and normal palpation of entire chest wall Resp Effort & Inspection: normal respiratory effort Auscultation: Bilateral: Clear to Auscultation Cardio Palpation: normal PMI Rate: regular rate Rhythm: regular rhythm GI Inspection: normal to inspection Auscultation: normal bowel sounds Percussion: normal to percussion Palpation: no hepatosplenomegaly Skin General: no rashes or lesions noted Neuro General: patient alert Extrem General: normal to inspection Psych Affect: normal affect Quality Reporting Tobacco Screening ([facility] 138) Smoking Status: Never smoker Assessment and Plan Assessment and Plan (1) Change in bowel habit: Status: Acute Orders: Orders: CRP Today Erythrocyte Sed Rate Today Calprotectin, Stool Today Immunoglobulin E Today Giardia Lamblia, Stool EIA Today Colonoscopy 05/28/21 EGD 05/28/21 (2) Eosinophilic gastroenteritis: Status: Acute Plan - Dr. Connelly Friend, DO: Patient has a high eosinophil count will get stool for Giardia as that can lead to an increased eosinophil count enter complete blood count. We will also get a immunoglobulin EE and renal biopsy: Look for new or eosinophilic esophagitis. (3) History of Clostridioides difficile infection: Status: Acute Plan - Dr. Connelly Friend, DO: We will need to get stool cultures and cultures and C. difficile when we do the procedure. 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 Plan Details Other Medications: New: bisacodyl Take as directed for bowel prep 5 mg PO ONCE 4 tabs 0RF polyethylene glycol 3350 Take as directed for bowel prep. 17 grams PO DAILY 238 grams 0RF
--- NOTE | 2021-05-28 09:00 | IMM_PTH ---
PATIENT: CHRISTIAN ANNA LOC: EN U#:[id number] AGE/SX: 75/F ROOM: RE05/28/[address]: Dr. Godwin Alvarez DO : 1945 BED: DIS: 05/28/2021 SPEC #: [id number] RECD: 05/28/21 14:57 STATUS: EVELYN REQ #: [id number] KAREN: 05/28/21 09:[address]: Godwin Alvarez DEPT: IMMUNOHISTOCHEMISTRY RECD BY: Fanta Parker ENTERED: 05/28/21 14:57 SP TYPE: IMMUNO OTHR DR: Dr. Lilo Grullon MD Tissues: A - Stomach, NOS Procedures: H Pylori (initial) PHYSICIAN & INSTITUTION [place] [id number] SPECIMEN INFORMATION: Tissue Source: A ? Antrum biopsy Clinical Info: eosinophilic gastroenteritis, history C-diff, change in bowel habits Specimen Number: [id number] CPT code: 45149 METHODOLOGY: Deparaffinized sections of prefer/formalin-fixed tissue or PAP/DQ stained slides are incubated with monoclonal/polyclonal antibodies/oligonucleotide probes. Localization is made via biotin free immunoperoxidase method. Appropriate controls are performed and reacted as expected. Results on target cell population are indicated in the following table: RESULTS: ANTIBODY / CLONE RESULT Block A H Pylori (polyclonal) negative These tests were developed and their performance characteristics determined by [facility]. They may not have been cleared or approved by the U.S. Food and Drug Administration. The FDA has determined that such clearance or approval is not necessary. INTERPRETATION: A. Antrum biopsy: Negative for Helicobacter pylori organisms. DAVIS:israel 05/29/2021
--- NOTE | 2021-05-28 09:21 | OP.EGD_ITS ---
Patient Name: Brayan Suggs Procedure Date: 05/28/2021 9:01 AM Date of : 1945 Age: 75 Procedure: Upper GI endoscopy Indications: Heartburn Providers: Godwin Alvarez DO Referring MD: Lilo Grullon Medicines: See the Anesthesia note for documentation of the administered medications Patient Profile: This is a 75 year old female. Refer to note in patient chart for documentation of history and physical. Patient has symptoms of acute abdominal cramping, acute abdominal distention and acute epigastric abdominal pain. The symptoms first began December. She is status post colonoscopy for treatment of bleeding five years ago. Complications: No immediate complications. Procedure: Pre-Anesthesia Assessment: - Prior to the procedure, a History and Physical was performed, and patient medications and allergies were reviewed. The patient is competent. The risks and benefits of the procedure and the sedation options and risks were discussed with the patient. All questions were answered and informed consent was obtained. Patient identification and proposed procedure were verified by the physician in the pre-procedure area. Mental Status Examination: alert and oriented. Airway Examination: normal oropharyngeal airway and neck mobility. Respiratory Examination: clear to auscultation. CV Examination: normal. Prophylactic Antibiotics: The patient does not require prophylactic antibiotics. Prior Anticoagulants: The patient has taken no previous anticoagulant or antiplatelet agents. After reviewing the risks and benefits, the patient was deemed in satisfactory condition to undergo the procedure. The anesthesia plan was to use moderate sedation / analgesia (conscious sedation). Immediately prior to administration of medications, the patient was re-assessed for adequacy to receive sedatives. The heart rate, respiratory rate, oxygen saturations, blood pressure, adequacy of pulmonary ventilation, and response to care were monitored throughout the procedure. The physical status of the patient was re-assessed after the procedure. After obtaining informed consent, the endoscope was passed under direct vision. Throughout the procedure, the patient's blood pressure, pulse, and oxygen saturations were monitored continuously. The Endoscope was introduced through the mouth, and advanced to the second part of duodenum. The upper GI endoscopy was accomplished without difficulty. The patient tolerated the procedure well. Moderate Sedation: Moderate (conscious) sedation was administered by the endoscopy nurse and supervised by the endoscopist. The patient's oxygen saturation, heart rate, blood pressure and response to care were monitored. Total physician intraservice time was 15 minutes. Scope In: 9:12:17 AM Scope Out: 9:17:58 AM Total Procedure Duration Time 0 hours 5 minutes 41 seconds Findings: LA Grade A (one or more mucosal breaks less than 5 mm, not extending between tops of 2 mucosal folds) esophagitis with no bleeding was found 34 to 35 cm from the incisors. A medium-sized hiatal hernia was present. Localized mild inflammation characterized by erosions and erythema was found in the stomach. Biopsies were taken with a cold forceps for histology. Verification of patient identification for the specimen was done. Estimated blood loss was minimal. Scattered moderate inflammation characterized by congestion (edema) and friability was found in the first portion of the duodenum. Biopsies were taken with a cold forceps for histology. Verification of patient identification for the specimen was done. Estimated blood loss was minimal. Impression: - LA Grade A reflux esophagitis. - Medium-sized hiatal hernia. - Gastritis. Biopsied. - Duodenitis. Biopsied. Recommendation: - Discharge patient to home. - Resume previous diet. - Continue present medications. - Await pathology results. - Return to my office in 2 weeks. Procedure Code(s): --- Professional --- 53325, Esophagogastroduodenoscopy, flexible, transoral; with biopsy, single or multiple G0500, Moderate sedation services provided by the same physician or other qualified health direct care worker performing a gastrointestinal endoscopic service that sedation supports, requiring the presence of an independent trained observer to assist in the monitoring of the patient's level of consciousness and physiological status; initial 15 minutes of intra-service time; patient age 5 years or older (additional time may be reported with 58904, as appropriate) CPT copyright 2017 [employer]. All rights reserved. The codes documented in this report are preliminary and upon kraft mill operator review may be revised to meet current compliance requirements. Godwin Alvarez DO 05/28/2021 9:21:18 AM This report has been signed electronically. Number of Addenda: 1 Note Initiated On: 05/28/2021 9:01 AM Addendum Number: 1 Addendum Date: 03/22/2022 6:17:13 AM MAC was used instead of moderate sedation for this patient. Godwin Alvarez DO 03/22/2022 6:17:22 AM This report has been signed electronically.
--- NOTE | 2021-05-28 09:22 | OP.CCLET_ITS ---
03/22/2022 Lilo Grullon [address] [place] [address] Re : Upper GI endoscopy procedure for katharina LimaSuggs Dear Dr. Grullon This procedure was performed on Friday, May 28, 2021. My impressions and recommendations are as follows: Impressions : - LA Grade A reflux esophagitis. - Medium-sized hiatal hernia. - Gastritis. Biopsied. - Duodenitis. Biopsied. Recommendations : - Discharge patient to home. - Resume previous diet. - Continue present medications. - Await pathology results. - Return to my office in 2 weeks. My findings are described in the full procedure note, which is enclosed. If I can be of further assistance, please feel free to contact me at . Sincerely, Godwin Alvarez, 05/28/2021 9:21:18 AM This report has been signed electronically.
[2021-05-28 09:45] VITALS: BP 104/74; BP 110/76; PULSE 70; RESP 14; TEMP 36.4; O2SAT 96
--- NOTE | 2021-05-28 09:45 | OP.COLON_ITS ---
Patient Name: Brayan Suggs Procedure Date: 05/28/2021 9:19 AM Date of : 1945 Age: 75 Procedure: Colonoscopy Indications: Clinically significant diarrhea of unexplained origin Providers: Godwin Alvarez DO Referring MD: Lilo Grullon Medicines: See the Anesthesia note for documentation of the administered medications Patient Profile: This is a 75 year old female. Refer to note in patient chart for documentation of history and physical. Patient has symptoms of acute abdominal cramping, acute abdominal distention and acute epigastric abdominal pain. The symptoms first began December. She is status post colonoscopy for treatment of bleeding five years ago. She is status post colonoscopy for diverticulitis within the past five years. Last Colonoscopy: 5 years ago. Complications: No immediate complications. Procedure: Pre-Anesthesia Assessment: - Prior to the procedure, a History and Physical was performed, and patient medications and allergies were reviewed. The patient is competent. The risks and benefits of the procedure and the sedation options and risks were discussed with the patient. All questions were answered and informed consent was obtained. Patient identification and proposed procedure were verified by the physician in the pre-procedure area. Mental Status Examination: alert and oriented. Airway Examination: normal oropharyngeal airway and neck mobility. Respiratory Examination: clear to auscultation. CV Examination: normal. Prophylactic Antibiotics: The patient does not require prophylactic antibiotics. Prior Anticoagulants: The patient has taken no previous anticoagulant or antiplatelet agents. After reviewing the risks and benefits, the patient was deemed in satisfactory condition to undergo the procedure. The anesthesia plan was to use moderate sedation / analgesia (conscious sedation). Immediately prior to administration of medications, the patient was re-assessed for adequacy to receive sedatives. The heart rate, respiratory rate, oxygen saturations, blood pressure, adequacy of pulmonary ventilation, and response to care were monitored throughout the procedure. The physical status of the patient was re-assessed after the procedure. After I obtained informed consent, the scope was passed under direct vision. Throughout the procedure, the patient's blood pressure, pulse, and oxygen saturations were monitored continuously. The Colonoscope was introduced through the anus and advanced to the terminal ileum. The terminal ileum, ileocecal valve, appendiceal orifice, and rectum were photographed. Moderate Sedation: Moderate (conscious) sedation was administered by the endoscopy nurse and supervised by the endoscopist. The patient's oxygen saturation, heart rate, blood pressure and response to care were monitored. Total physician intraservice time was 15 minutes. Scope In: 9:23:55 AM Scope Withdrawal Time 0 hours 11 minutes 56 seconds Scope Out: 9:40:08 AM Total Procedure Duration Time 0 hours 16 minutes 13 seconds Findings: Hemorrhoids were found on perianal exam. There was moderate spasm in the sigmoid colon. Biopsies were taken with a cold forceps for histology. Verification of patient identification for the specimen was done. Estimated blood loss was minimal. A patchy area of the terminal ileum was congested. The exam was otherwise without abnormality on direct and retroflexion views. A few small-mouthed diverticula were found in the sigmoid colon. Impression: - Hemorrhoids found on perianal exam. - Moderate colonic spasm consistent with irritable bowel syndrome. Biopsied. - Congested mucosa in the terminal ileum. - The examination was otherwise normal on direct and retroflexion views. Recommendation: - Discharge patient to home. - Resume previous diet. - Continue present medications. - Await pathology results. - Return to my office in 2 weeks. - Repeat colonoscopy in 5 years for surveillance based on pathology results. Procedure Code(s): --- Professional --- 46793, Colonoscopy, flexible; with biopsy, single or multiple G0500, Moderate sedation services provided by the same physician or other qualified health health care specialist performing a gastrointestinal endoscopic service that sedation supports, requiring the presence of an independent trained observer to assist in the monitoring of the patient's level of consciousness and physiological status; initial 15 minutes of intra-service time; patient age 5 years or older (additional time may be reported with 85294, as appropriate) CPT copyright 2017 [employer]. All rights reserved. The codes documented in this report are preliminary and upon household worker review may be revised to meet current compliance requirements. Godwin Alvarez DO 05/28/2021 9:45:18 AM This report has been signed electronically. Number of Addenda: 1 Note Initiated On: 05/28/2021 9:19 AM Addendum Number: 1 Addendum Date: 03/22/2022 6:17:32 AM MAC was used instead of moderate sedation for this patient. Godwin Alvarez DO 03/22/2022 6:17:37 AM This report has been signed electronically.
--- NOTE | 2021-05-28 09:46 | OP.CCLET_ITS ---
03/22/2022 Lilo Grullon [address] [place] [address] Re : Colonoscopy procedure for [facility] Suggs Dear Dr. Grullon This procedure was performed on Friday, May 28, 2021. My impressions and recommendations are as follows: Impressions : - Hemorrhoids found on perianal exam. - Moderate colonic spasm consistent with irritable bowel syndrome. Biopsied. - Congested mucosa in the terminal ileum. - The examination was otherwise normal on direct and retroflexion views. Recommendations : - Discharge patient to home. - Resume previous diet. - Continue present medications. - Await pathology results. - Return to my office in 2 weeks. - Repeat colonoscopy in 5 years for surveillance based on pathology results. My findings are described in the full procedure note, which is enclosed. If I can be of further assistance, please feel free to contact me at . Sincerely, Godwin Alvarez, 05/28/2021 9:45:18 AM This report has been signed electronically.
[2021-05-28 09:50] VITALS: BP 110/76; BP 113/76; PULSE 65; RESP 14; O2SAT 96
[2021-05-28 09:55] VITALS: BP 108/75; BP 110/76; PULSE 68; RESP 14; O2SAT 97
[2021-05-28 10:00] VITALS: BP 105/78; BP 110/76; PULSE 67; RESP 14; TEMP 36.2; O2SAT 96
[2021-05-28 10:35] VITALS: BP 110/76
== END 2021-05-28 10:50 | disposition home or self-care (01) ==
LOC: EN 07:45 → AC 07:46
PROVIDERS: PCP Family Medicine; Referring Provider Family Medicine; Visit Provider Internal Medicine Gastroenterology
PROC: 0DJD8ZZ Inspection of Lower Intestinal Tract, Via Natural or Artificial Opening Endoscopic (ICD-10-PCS; CPT 45378; principal; 2021-05-28 08:40)
DX: K52.832 Lymphocytic colitis (principal); K52.831 Collagenous colitis; K29.70 Gastritis, unspecified, without bleeding; K57.30 Diverticulosis of large intestine without perforation or abscess without bleeding; K21.00 Gastro-esophageal reflux disease with esophagitis, without bleeding; K44.9 Diaphragmatic hernia without obstruction or gangrene; K29.80 Duodenitis without bleeding; K64.9 Unspecified hemorrhoids; F41.9 Anxiety disorder, unspecified; F32.A Depression, unspecified; M19.90 Unspecified osteoarthritis, unspecified site; M06.9 Rheumatoid arthritis, unspecified; Z79.899 Other long term (current) drug therapy
CPT/HCPCS: 43239; 45380; 83993; 87329; 88305; 88313; 88342; J7120; J2405

== ENCOUNTER 2021-09-21 10:21 | Outpatient (CLI) | payer MEDICARE, SELFPAY ==
[2021-09-21 10:51] LABS: Erythrocyte Sedimentation Rate 18 mm/hr (0-30)
[2021-09-21 11:15] LABS: Anion Gap 4 (5-15); BUN 19 mg/dL (7-18); BUN/Creat Ratio 22.4 RATIO (10-20); Calcium,Total 9.2 mg/dL (8.5-10.1); Chloride 108 mmol/L (98-107); Cholesterol 251 mg/dL (200); Creatinine, Serum 0.85 mg/dL (0.55-1.02); EST Glomerular Filtration Rate 69 mL/min (>60); Est Glom Filt Rate - Afr Amer 84 mL/min (>60); Glucose 84 mg/dL (74-106); High Density Lipoprotein 53 mg/dL; Potassium 3.8 mmol/L (3.5-5.1); Sodium Level 140 mmol/L (136-145); Triglycerides 128 mg/dL; Very Low Density Lipoprotein 26 mg/dL (5-40)
[2021-09-21 11:17] LABS: Vitamin D,25 Hydroxy 45.7 ng/mL
[2021-09-24 19:00] LABS: ANTINUCLEAR ANTIBODIES DIRECT Negative (Negative); Anti-dsDNA Ab <1 IU/mL (0-9)
== END 2021-09-21 23:59 | disposition home or self-care (01) ==
LOC: MFPLAB 10:21
PROVIDERS: PCP Family Medicine; Visit Provider Family Medicine
DX: Z00.00 Encounter for general adult medical examination without abnormal findings (principal); R21 Rash and other nonspecific skin eruption
CPT/HCPCS: 36415; 80048; 80061; 82306; 85652; 86038; 86225

== ENCOUNTER 2021-10-01 16:10 | Outpatient (CLI) | payer MEDICARE, SELFPAY ==
--- NOTE | 2021-10-01 16:42 | CT_ITS ---
EXAM: CT HEAD WITHOUT INTRAVENOUS CONTRAST CLINICAL INDICATION: ALTERED MENTAL STATUS TECHNIQUE: Multiple axial images were obtained of the head without intravenous contrast. CTDIvol = ( 47.06 ) mGy, DLP = ( 855.03 ) mGycm This CT exam was performed using one or more of the following dose reduction techniques: automated exposure control, adjustment of the mA and/or kV according to patient size, and/or use of iterative reconstruction technique. This report was created using [employer] report generation technology. COMPARISON: None. FINDINGS: BRAIN AND EXTRA-AXIAL SPACES: No acute intracranial hemorrhage, mass effect or edema. No evidence of acute cortical stroke. Periventricular small vessel ischemic change. No midline shift or hydrocephalus. Diffuse parenchymal atrophy. Posterior fossa structures are unremarkable. Basal cisterns are patent. BONES/JOINTS: Unremarkable. No discrete lytic or blastic abnormalities. VASCULATURE: Atherosclerotic calcifications of the carotid siphons. SINUSES: Unremarkable as visualized. Clear. MASTOID AIR CELLS: Visualized sinuses and mastoid air cells are clear. ORBITS: Visualized globes, extraocular muscles, optic nerves and retrobulbar fat appear unremarkable. CT/Brain/Head without Contrast IMPRESSION: 1. No evidence of acute intracranial pathology. 2. Diffuse involutional changes and chronic ischemic small vessel white matter disease. Electronically Signed: Anshu Cooper MD at 2:00 EDT ,
== END 2021-10-01 23:59 | disposition home or self-care (01) ==
LOC: CT 16:10
PROVIDERS: PCP Family Medicine; Visit Provider Family Medicine
DX: R41.82 Altered mental status, unspecified (principal)
CPT/HCPCS: 70450

== ENCOUNTER 2021-10-04 16:03 | Outpatient (CLI) | payer MEDICARE, SELFPAY ==
[2021-10-04 16:36] LABS: Absolute Lymphocyte Count 1.83 X10^3/uL (0.83-4.51); Absolute Neutrophil Count 4.1 X10^3/uL (2.0-7.7); Basophil# 0.04 X10^3/uL; Basophil% 0.6 % (0-1); Eosinophil# 0.08 X10^3/uL; Eosinophils% 1.2 % (0-5); Hematocrit 42.3 % (37-47); Hemoglobin 14.3 g/dL (12.0-15.0); Lymphocyte # 1.83 X10^3/ul (0.83-4.51); Lymphocyte % 28.4 % (19-41); Mean Corp Hgb Conc 33.8 g/dL (32-36); Mean Corpuscular Hgb 29.5 pg (27.0-32.0); Mean Corpuscular Volume 87.4 fL (81-99); Monocyte% 6.2 % (0-10); NRBC Flagged by Analyzer 0 % (0-5); Neutrophil # 4.08 X10^3/uL (2.7-7.7); Neutrophil % 63.4 % (47-70); Platelet Count 187 K/mm3 (150-450); Red Blood Count 4.84 M/mm3 (4.2-5.4); White Blood Count 6.4 K/mm3 (4.4-11.0)
[2021-10-04 16:46] LABS: Erythrocyte Sedimentation Rate 28 mm/hr (0-30)
[2021-10-04 17:22] LABS: Vitamin B12 922 pg/mL (211-911); Vitamin D,25 Hydroxy 62.3 ng/mL
[2021-10-04 17:32] LABS: AST(SGOT) 20 U/L (15-37); Alanine Aminotransfer ALT/SGPT 24 U/L (13-56); Albumin, Serum 3.6 g/dL (3.2-5.0); Alkaline Phosphatase 75 U/L (45-117); Anion Gap 3 (5-15); BUN 22 mg/dL (7-18); CPK Total, Creatine Kinase 93 U/L (26-192); CRP < 2.90 mg/L (0.0-3.0); Calcium,Total 8.9 mg/dL (8.5-10.1); Chloride 106 mmol/L (98-107); Creatinine, Serum 0.92 mg/dL (0.55-1.02); EST Glomerular Filtration Rate 63 mL/min (>60); Est Glom Filt Rate - Afr Amer 76 mL/min (>60); Globulin 3.6 g/dL (2.2-4.2); Glucose 101 mg/dL (74-106); LDH 329 U/L (84-246); Potassium 4.2 mmol/L (3.5-5.1); Protein, Total 7.2 g/dL (6.4-8.2); Sodium Level 137 mmol/L (136-145); Thyroid Stim Hormone (TSH) 2.87 uIU/mL (0.358-3.74)
[2021-10-06 14:09] LABS: Anti-Centromere B Ab <0.2 AI (0.0-0.9); Anti-Chromatin <0.2 AI (0.0-0.9); Anti-Jo <0.2 AI (0.0-0.9); Anti-Scleroderma-70 AB 0.3 AI (0.0-0.9); RNP Ab <0.2 AI (0.0-0.9); SJOGREN'S Anti-SS-A test < 0.2 AI (0.0-0.9); SJOGREN'S Anti-SS-B test < 0.2 AI (0.0-0.9); Smith Ab <0.2 AI (0.0-0.9)
[2021-10-06 19:29] LABS: Anti-dsDNA Ab <1 IU/mL (0-9)
[2021-10-11 09:09] LABS: Cytoplasmic Ab (C-ANCA) <1:20 titer (Neg:<1:20); Immunoglobulin A 167 mg/dL (64-422); Immunoglobulin E 7 IU/mL (6-495); Immunoglobulin G 1030 mg/dL (586-1602)
[2021-10-11 13:16] LABS: Immunoglobulin M 134 mg/dL (26-217); Perinuclear Ab (P-ANCA) <1:20 titer (Neg:<1:20)
== END 2021-10-04 23:59 | disposition home or self-care (01) ==
LOC: LAB 16:05
PROVIDERS: PCP Family Medicine; Visit Provider Internal Medicine Gastroenterology
DX: E66.9 Obesity, unspecified (principal); E55.9 Vitamin D deficiency, unspecified; F41.9 Anxiety disorder, unspecified; F32.9 Major depressive disorder, single episode, unspecified; K21.9 Gastro-esophageal reflux disease without esophagitis
CPT/HCPCS: 36415; 80053; 82306; 82550; 82607; 82784; 82785; 83615; 84443; 85025; 85652; 86140; 86225; 86235; 86256

== ENCOUNTER 2021-10-24 15:03 | Outpatient (CLI) | payer MEDICARE, SELFPAY ==
[2021-10-24 18:17] LABS: Thyroid Stim Hormone (TSH) 2.76 uIU/mL (0.358-3.74)
== END 2021-10-24 23:59 | disposition home or self-care (01) ==
LOC: MTLAB 15:05
PROVIDERS: PCP Family Medicine; Referring Provider Family Medicine; Visit Provider Family Medicine
DX: R53.83 Other fatigue (principal)
CPT/HCPCS: 36415; 84443

== ENCOUNTER 2021-11-01 09:18 | Outpatient (CLI) | payer MEDICARE, SELFPAY ==
[2021-11-13 20:01] LABS: Vitamin B1, Thiamine 123.2 nmol/L (66.5-200.0)
== END 2021-11-01 23:59 | disposition home or self-care (01) ==
LOC: MTLAB 09:18
PROVIDERS: PCP Family Medicine; Referring Provider Psychiatry & Neurology Neurology; Visit Provider Psychiatry & Neurology Neurology
DX: G31.84 Mild cognitive impairment of uncertain or unknown etiology (principal)
CPT/HCPCS: 36415; 82746; 84425

== ENCOUNTER → 2022-02-26 | Outpatient (CLI) | payer MEDICARE, SELFPAY ==
--- NOTE | 2022-02-26 13:15 | BI_ITS ---
MAMMOGRAPHY - BILATERAL SCREENING REASON FOR EXAM: Female, 76 years old. Routine annual screening examination. PERTINENT HISTORY: Aunt with breast cancer. TECHNIQUE: Digital bilateral breast gino (3D mammographic acquisition) in the CC and MLO projections. 2-D mediolateral oblique (MLO) and craniocaudad (CC) views of both breasts were obtained. CAD: Full Field Digital Mammography with Computer Added Detection was performed. COMPARISON: Comparison is made with prior study dated 05/01/2020 and 04/28/2019. FINDINGS: Breast Composition: There are scattered areas of fibroglandular density. There are no dominant masses or suspicious calcifications. No other significant abnormalities are identified. There has been no significant change since the prior study. BI/SCRN MAMM (CAD)W/GINO BILAT IMPRESSION: Stable bilateral screening mammogram. Yearly follow-up mammogram recommended. (A) ASSESSMENT CATEGORY: BIRADS Category 1: Negative. A letter regarding these results will be sent to the patient by the facility within 30 days. Approximately 10% of breast cancers are not detected by mammography. A normal mammogram should not delay biopsy of a clinically suspicious abnormality. [id number] Electronically Signed: Reza Stevens MD at 14:20 EDT ,
--- NOTE | 2022-02-26 13:26 | BD_ITS ---
STUDY: DUAL ENERGY X-RAY ABSORPTIOMETRY / DXA REASON FOR EXAM: Female, 76 years old. V76.12ScreeningBONE DENSITY REASON FOR EXAM TECHNIQUE: Bone Mineral Density (BMD) measurements of both forearms were obtained. COMPARISON: None. FINDINGS: Right Forearm: g/cm2 (0.517) / T-score (-1.1) / Z-score (1.7) Left Forearm: g/cm2 (0.511) / T-score (-1.3) / Z-score (1.6) BD/Dexa Bone Density/Append Skel IMPRESSION: The patient is considered osteopenic as outlined below according to World Omari Organization (WHO) criteria with a low fracture risk. Reference Information: The T-score is the number of standard deviations above or below the standard which is normal for young adults at their peak bone mineral density. The World Health Organization (WHO) interprets the T-scores as follows: Above -1 Normal bone density Between -1 and -2.5 Osteopenia Equal to / or below -2.5 Osteoporosis As a practical clinical guideline, osteopenia may be graded as follows: Mild -1 through -1.5 Moderate -1.6 through -2.0 Severe -2.1 through -2.4 The Z-score is the number of standard deviations above or below age-matched controls. A Z-score of less than -1.5 would be considered abnormal. References: 1. NIH Osteoporosis and Related Bone Diseases www osteo.org 2. International Society for Clinical Densitometry www iscd.org 3. National Osteoporosis Foundation www nof.org Electronically Signed: Reza Stevens MD at 15:31 EDT ,
== END | disposition home or self-care (01) ==
LOC: OPBD 13:13
PROVIDERS: PCP Family Medicine; Referring Provider Family Medicine; Visit Provider Family Medicine
DX: Z12.31 Encounter for screening mammogram for malignant neoplasm of breast (principal); M85.80 Other specified disorders of bone density and structure, unspecified site; N95.9 Unspecified menopausal and perimenopausal disorder
CPT/HCPCS: 77063; 77067; 77081

== ENCOUNTER → 2022-04-16 | Outpatient (CLI) | payer MEDICARE, SELFPAY ==
[2022-04-16 15:20] LABS: Absolute Lymphocyte Count 1.06 X10^3/uL (0.83-4.51); Absolute Neutrophil Count 4.3 X10^3/uL (2.0-7.7); Basophil# 0.03 X10^3/uL; Basophil% 0.5 % (0-1); Eosinophil# 0.19 X10^3/uL; Eosinophils% 3.1 % (0-5); Hematocrit 40.8 % (37-47); Hemoglobin 13.6 g/dL (12.0-15.0); Lymphocyte # 1.06 X10^3/ul (0.83-4.51); Lymphocyte % 17.5 % (19-41); Mean Corp Hgb Conc 33.3 g/dL (32-36); Mean Corpuscular Hgb 29.8 pg (27.0-32.0); Mean Corpuscular Volume 89.5 fL (81-99); Mean Platelet Vol. 10.8 fl (6.2-12.0); Monocyte# 0.52 X10^3/uL; Monocyte% 8.6 % (0-10); NRBC Flagged by Analyzer 0 % (0-5); Neutrophil # 4.25 X10^3/uL (2.7-7.7); Platelet Count 189 K/mm3 (150-450); RBC Distribution Width CV 14.8 % (11.6-14.6); RBC Distribution Width SD 48.8 fl (35.1-43.9); Red Blood Count 4.56 M/mm3 (4.2-5.4); White Blood Count 6.1 K/mm3 (4.4-11.0)
[2022-04-16 15:22] LABS: Color, Urine Yellow (Yellow); Glucose, Dipstick Normal (Normal); Ketone-Dipstick Negative (Negative); Leukocyte Esterase-Dipstick Negative /ul (Negative); Nitrite-Dipstick Negative (Negative); Occult Blood-Urine Negative /ul (Negative); Protein-Dipstick Negative (Negative); Urine Bilirubin Dipstick Negative (Negative); Urine Clarity Clear (Clear); Urine Urobilinogen Normal (Normal)
[2022-04-16 16:03] LABS: ALB/GLOB Ratio 0.8 RATIO (0.9-2.4); AST(SGOT) 17 U/L (15-37); Alanine Aminotransfer ALT/SGPT 23 U/L (13-56); Albumin, Serum 3.1 g/dL (3.2-5.0); Alkaline Phosphatase 65 U/L (45-117); Anion Gap 6 (5-15); BUN 15 mg/dL (7-18); BUN/Creat Ratio 17.2 RATIO (10-20); Calcium,Total 9.2 mg/dL (8.5-10.1); Chloride 104 mmol/L (98-107); Creatinine, Serum 0.87 mg/dL (0.55-1.02); EST Glomerular Filtration Rate 67 mL/min (>60); Est Glom Filt Rate - Afr Amer 81 mL/min (>60); Globulin 3.9 g/dL (2.2-4.2); Glucose 105 mg/dL (74-106); Potassium 4.2 mmol/L (3.5-5.1); Sodium Level 140 mmol/L (136-145); Thyroid Stim Hormone (TSH) 2.12 uIU/mL (0.358-3.74)
== END | disposition home or self-care (01) ==
LOC: MFPLAB 13:54
PROVIDERS: PCP Family Medicine; Referring Provider Family Medicine; Visit Provider Family Medicine
DX: R53.83 Other fatigue (principal); R35.0 Frequency of micturition
CPT/HCPCS: 36415; 80053; 81002; 84443; 85025

== ENCOUNTER → 2022-05-10 | Outpatient (CLI) | payer MEDICARE, SELFPAY ==
[2022-05-10 17:55] LABS: Absolute Lymphocyte Count 1.85 X10^3/uL (0.83-4.51); Absolute Neutrophil Count 3.9 X10^3/uL (2.0-7.7); Basophil# 0.04 X10^3/uL; Basophil% 0.6 % (0-1); Eosinophil# 0.15 X10^3/uL; Eosinophils% 2.4 % (0-5); Hematocrit 41.4 % (37-47); Hemoglobin 13.4 g/dL (12.0-15.0); Lymphocyte # 1.85 X10^3/ul (0.83-4.51); Mean Corp Hgb Conc 32.4 g/dL (32-36); Mean Corpuscular Hgb 28.5 pg (27.0-32.0); Mean Corpuscular Volume 88.1 fL (81-99); Mean Platelet Vol. 10.3 fl (6.2-12.0); Monocyte% 6.3 % (0-10); NRBC Flagged by Analyzer 0 % (0-5); Neutrophil # 3.91 X10^3/uL (2.7-7.7); Neutrophil % 61.4 % (47-70); Platelet Count 195 K/mm3 (150-450); RBC Distribution Width CV 14.6 % (11.6-14.6); RBC Distribution Width SD 46.7 fl (35.1-43.9); White Blood Count 6.4 K/mm3 (4.4-11.0)
[2022-05-10 18:31] LABS: ALB/GLOB Ratio 0.9 RATIO (0.9-2.4); AST(SGOT) 19 U/L (15-37); Alanine Aminotransfer ALT/SGPT 21 U/L (13-56); Albumin, Serum 3.3 g/dL (3.2-5.0); Alkaline Phosphatase 73 U/L (45-117); Anion Gap 7 (5-15); BUN 19 mg/dL (7-18); BUN/Creat Ratio 24.3 RATIO (10-20); Calcium,Total 8.9 mg/dL (8.5-10.1); Chloride 106 mmol/L (98-107); Creatinine, Serum 0.78 mg/dL (0.55-1.02); EST Glomerular Filtration Rate 75 mL/min (>60); Est Glom Filt Rate - Afr Amer 91 mL/min (>60); Globulin 3.6 g/dL (2.2-4.2); Glucose 104 mg/dL (74-106); Lipase 198 U/L (73-393); Potassium 3.8 mmol/L (3.5-5.1); Protein, Total 6.9 g/dL (6.4-8.2); Sodium Level 138 mmol/L (136-145)
== END | disposition home or self-care (01) ==
PROVIDERS: PCP Family Medicine; Visit Provider Family Medicine
DX: R19.01 Right upper quadrant abdominal swelling, mass and lump (principal)
CPT/HCPCS: 36415; 80053; 83690; 85025

== ENCOUNTER → 2022-05-16 | Outpatient (CLI) | payer MEDICARE, SELFPAY ==
--- NOTE | 2022-05-16 08:17 | US_ITS ---
STUDY: ABDOMINAL ULTRASOUND - RIGHT UPPER QUADRANT REASON FOR VISIT: Female, 76 years old RUQ PAIN TECHNIQUE: Ultrasound evaluation of the right upper quadrant was performed with real-time and static sher-scale imaging. TECHNICAL QUALITY: Adequate. COMPARISON: None. FINDINGS: Liver: The liver measures 13.2 cm. There is normal echogenicity of the liver. The bile ducts are within normal limits. There is hepatic color flow. The direction of portal flow is hepatopetal. There is no demonstrated mass lesion. Gallbladder: Normal distended gallbladder. The gallbladder wall measures 1.8 mm. There is a negative sonographic Mosquera''s sign. There is no pericholecystic fluid. There are no gallstones. Common Bile Duct (C.B.D.): The common bile duct measures 4.7 mm. Pancreas: Normal size of the head, body and tail of the pancreas. There is normal echogenicity of the pancreas. There is no demonstrated pancreatic mass or cyst. Right Kidney: Normal size of the right kidney. The right kidney measures 8.7 cm x 5.2 cm x 3.7 cm. Normal renal cortex. The right cortex measures 1. cm. There is no demonstrated renal mass or cyst. There is no right hydronephrosis. US/Abdomen Limited IMPRESSION: Normal right upper quadrant ultrasound examination. Electronically Signed: Reza Stevens MD at 14:33 EDT ,
== END | disposition home or self-care (01) ==
LOC: US 08:12
PROVIDERS: PCP Family Medicine; Referring Provider Family Medicine; Visit Provider Family Medicine
DX: R19.01 Right upper quadrant abdominal swelling, mass and lump (principal)
CPT/HCPCS: 76705

== ENCOUNTER → 2022-06-14 | Outpatient (CLI) | payer MEDICARE, SELFPAY ==
--- NOTE | 2022-06-14 08:11 | NM_ITS ---
CLINICAL: 76-year-old female with history of right upper quadrant abdominal pain. RADIONUCLIDE HEPATOBILIARY SCINTIGRAPHY COMPARISON: Abdominal ultrasound report 05/16/2022 FINDINGS: Following the intravenous administration of 6.0 mCi of 99m Tc Mebrofenin, hepatobiliary images reveal: 1. Relatively prompt and homogeneous radiopharmaceutical concentration is noted by a normal sized liver. No parenchymal defects are identified. 2. Gallbladder activity is identified at 30 minutes post radiopharmaceutical administration. 3. Small intestinal tract is observed at 60 minutes following tracer injection. 4. Washout of the radiopharmaceutical by the hepatic parenchyma appears qualitatively normal. Cholecystokinin (0.02 ug/kg) was administered intravenously over a 30-minute period. The post CCK gallbladder ejection fraction calculated at 20 minutes following Cholecystokinin administration was noted to be 5.0 % (normal greater than 35%). AR/Hepatobilliary Img w/Pharm Int IMPRESSION: 1. ABNORMAL 99m Tc Mebrofenin hepatobiliary imaging examination with Cholecystokinin. A. A gallbladder ejection fraction calculated to be less than 35% following the administration of Cholecystokinin is consistent with the presence of functional hepatobiliary disease (gallbladder and/or sphincter of Oddi dyskinesia) and/or organic hepatobiliary disease (chronic acalculous cholecystitis and/or cystic duct syndrome) in patients with intermediate to high pretest probabilities of hepatobiliary illness. (Malu Ware et al, Journal of Nuclear Medicine 32:1695, 1991). Electronically Signed: Jw Hodgson, at 8:39 EST ,
== END | disposition home or self-care (01) ==
PROVIDERS: PCP Family Medicine; Referring Provider Family Medicine; Visit Provider Family Medicine
DX: R19.01 Right upper quadrant abdominal swelling, mass and lump (principal)
CPT/HCPCS: 78227; A9537; J2805

== ENCOUNTER → 2022-06-15 | Outpatient (CLI) | payer MEDICARE, SELFPAY ==
--- NOTE | 2022-06-15 10:07 | MRI_ITS ---
HISTORY: Neck pain, abnormal gait, falls. TECHNIQUE: Multiplanar and multisequence MR images of the cervical spine were obtained without contrast. 244 images. COMPARISON: XR 12/29/2020. FINDINGS: VERTEBRAE: Vertebral body heights maintained. Mild degenerative bone marrow endplate changes and mild intervertebral disc space narrowing of C5-6 and C6-7. VERTEBRAL ALIGNMENT: Straightening of the cervical lordosis without anterior or posterior subluxation. SPINAL CORD: Cervical cord signal and morphology within normal limits. SOFT TISSUES: No prevertebral fluid collection. 1.4 cm right thyroid nodule. INTERVERTEBRAL DISCS: C2-3, C3-4: No significant posterior disc protrusion, central canal stenosis, or foraminal narrowing. C4-5: Mild central disc protrusion with abutment of the ventral cord. No significant central canal stenosis or foraminal narrowing. C5-6, C6-7: Mild posterior disc bulge osteophyte complexes with uncovertebral and facet arthropathy resulting in minimal narrowing of the thecal sac and mild bilateral foraminal narrowing. C7-T1: Mild disc bulge without significant central canal stenosis or foraminal narrowing. MRI/Spine Cervical (Routine) IMPRESSION: Mild multilevel degenerative disc disease of the cervical spine as above. 1.4 cm right thyroid nodule; consider ultrasound follow-up. Electronically Signed: Cesilia Montano MD at 12:10 EST ,
== END | disposition home or self-care (01) ==
PROVIDERS: PCP Family Medicine; Visit Provider Psychiatry & Neurology Neurology
DX: M54.2 Cervicalgia (principal); R26.9 Unspecified abnormalities of gait and mobility
CPT/HCPCS: 72141

== ENCOUNTER 2022-06-18 14:30 | Outpatient (RCR) | payer MEDICARE, SELFPAY ==
--- NOTE | 2022-05-07 13:43 | HP.PTEVAL_ITS ---
Patient's Visit Information CHRISTIAN ANNA is a 76 year old F referred to Physical Therapy by Dr. Babatunde Ellsworth MD with a diagnosis of LBP, abnormality of gait, neck pain, normal pressure hydrocephalus. Date of Evaluation: 05/07/22 Physical Therapist: DEMETRIUS Escobar - Visit Plan Frequency: 2x /Week Duration: 2 Months Plan: 2X/ week for 8 weeks for LE strength (hip, ankle and core), functional strength (curb steps, stairs), gait training, balance static and dynamic, with HEP They are awaiting other tests to see if needs a shunt plcement and if that is causing her to just lose her balance. USE A GAIT BELT. She walks better with a rollator and encouraged her to start using one at home - Subjective Pt started to have problems being in the yard and fell for no reason. Her or neighbor would have to pick her up and this started last summer but worse this summer. She had her brain looked at (MRI and MRA) and her brain is good and now doing a lumbar and c-spine MRI and C[facility] in [place] and being scheduled now by her Dr. They are getting precertfications. They have established shrinking of the brain, which is normal and blood vessel shrinage is also normal. Also trying to establish basis for a shunt in the brain. Depending on the results of the test coming up they will determine if she has a spinal tap to see if balance gets better with it and then indicitive of a brain shunt. If she walks for a long time her back will hurt and her neck will hurt at night. She is very unsteady. Her legs just give out for no reason and one weekend she could not walk. She has started to always use the cane now. When she walks around the house she holds onto marcial and furniture and has good hand rails on the stairs. She does 2 feet to a stair using both hands on one rail. Bed mobility: she does have some trouble due to a high mattress. Sit to stand: difficulty and she uses her arms to stand up. He has installed a number of handicapped rails in the house. She feels like her legs are weak. She reports that she has some dizziness at times but not noticable - Pain back pain Pain Intensity (Out of 10): 0 neck pain Pain Intensity (Out of 10): 0 Pain Intensity Range: 1 Comment: stiffness - Objective Gait: Walks with short stride (does not clear the stance foot) and likes to scoof the R foot on the ground. Walking with a rollator she is able to take larger steps with less catching of the R foot. LE MMT: R hip flex 8.1# and L hip flex 6.5#. R knee ext 17.2# and L knee ext 22.5#. R knee flex 16.1# and L knee flex 12.1#. CATSIB: 90. FGA: 8 - Balance/Special Test Scores Functional Gait Assessment Score: 8 % Disability: 73.3400 CATSIB Score (Max score 120 seconds): 90 Lower Extremity Functional Score: 22 - Goals Goal 1:: I HEP Goal Time Frame: 6-8 Weeks Goal 2:: Increase FGA by 5 points to decrease fall risk Goal Time Frame: 6-8 Weeks Goal 3:: Be able to walk with increase stride and not catching her R foot with least restrictive device Goal Time Frame: 4-6 Weeks Goal 4:: Increase LE strength (at time of eval: R hip flex 8.1# and L hip flex 6.5#. R knee ext 17.2# and L knee ext 22.5#. R knee flex 16.1# and L knee flex 12.1#). Goal Time Frame: 4-6 Weeks - Rehabilitation Potential Rehabilitation Potential: Good - Anticipated Interventions Patient/Client Instruction: Educate patient on: Condition, Plan of Care For the Purpose of:: To improve nutrient delivery to tissue, To improve muscle performance and motor function, To improve ability to perform ADL's, To increase tolerance to activity/condition/position, To improve performance and independence with ADL's, To decrease level of supervision to perform tasks, To improve ability of physical actions for home/community/work/leisure, To improve gait and locomotor functions, To improve health of tissue, To improve endurance, To improve balance, To improve safety with gait Therapeutic Exercise to Include: Strength training, Endurance training, Balance training, Body mechanics, Postural training, Flexibilty training, Gait and locomotor training, Neuromotor development, Passive ROM, Active ROM, Dynamic Lumbar Stabilization For the Purpose of:: To improve muscle performance and motor function, To improve ability to perform ADL's, To increase tolerance to activity/condition/position, To improve performance and independence with ADL's, To decrease level of supervision to perform tasks, To improve ability of physical actions for home/community/work/leisure, To improve gait and locomotor functions, To improve health of tissue, To improve endurance, To improve balance, To improve safety with gait Functional Training to Include: Gait training For the Purpose of:: To improve gait and locomotor functions, To improve safety with gait Thank you for the opportunity to evaluate your patient. For Medicare and Medicare HMO plans, please review the plan of care and approve it. It will need to be FAXED BACK to us at [phone] for Medicare purposes. For Medicare only, by signing this I certify the plan of care. Please let me know if there are questions or concerns regarding this plan of care. Physician Signature: Date:
--- NOTE | 2022-10-21 09:58 | HP.PT.NRP ---
CHRISTIAN ANNA was seen in my office for initial evaluation on 05/07/22. The following Plan of Care was established for this patient: Initial Frequency: 2x /Week Initial Duration: 2 Months Patient/Client Instruction: Educate patient on: Condition, Plan of Care For the Purpose of:: To improve nutrient delivery to tissue, To improve muscle performance and motor function, To improve ability to perform ADL's, To increase tolerance to activity/condition/position, To improve performance and independence with ADL's, To decrease level of supervision to perform tasks, To improve ability of physical actions for home/community/work/leisure, To improve gait and locomotor functions, To improve health of tissue, To improve endurance, To improve balance, To improve safety with gait Therapeutic Exercise to Include: Strength training, Endurance training, Balance training, Body mechanics, Postural training, Flexibilty training, Gait and locomotor training, Neuromotor development, Passive ROM, Active ROM, Dynamic Lumbar Stabilization For the Purpose of:: To improve muscle performance and motor function, To improve ability to perform ADL's, To increase tolerance to activity/condition/position, To improve performance and independence with ADL's, To decrease level of supervision to perform tasks, To improve ability of physical actions for home/community/work/leisure, To improve gait and locomotor functions, To improve health of tissue, To improve endurance, To improve balance, To improve safety with gait Functional Training to Include: Gait training For the Purpose of:: To improve gait and locomotor functions, To improve safety with gait This patient was last seen in our office 06/18/22. Pertinent comments regarding their Physical therapy will appear below: DC PT At this point I will be discontinuing this patient from physical therapy. I would be happy to see this patient again in the future if found appropriate by the physician. Thank you! Michelle Monson, MPT Balance/Gait/Functional tests - Balance/Special Test Scores Functional Gait Assessment Score: 8 % Disability: 73.3400 CATSIB Score (Max score 120 seconds): 90 Lower Extremity Functional Score: 22
== END 2022-06-18 19:00 | disposition home or self-care (01) ==
LOC: PT 14:30
PROVIDERS: PCP Family Medicine; Referring Provider Psychiatry & Neurology Neurology; Visit Provider Psychiatry & Neurology Neurology
DX: M54.50 Low back pain, unspecified (principal); M54.2 Cervicalgia; G91.2 (Idiopathic) normal pressure hydrocephalus; R26.9 Unspecified abnormalities of gait and mobility
CPT/HCPCS: 97110; 97162

== ENCOUNTER → 2022-09-10 | Outpatient (CLI) | payer MEDICARE, SELFPAY ==
--- NOTE | 2022-09-10 | CYSPIN_PTH ---
PATIENT: CHRISTIAN ANNA LOC: [facility] U#:[id number] AGE/SX: 77/F ROOM: RE09/10/[address]: Dr. Babatunde Ellsworth MD : 1945 BED: DIS: 09/10/2022 SPEC #: [id number] RECD: 09/10/22 14:00 STATUS: EVELYN MILLER #: [id number] KAREN: 09/10/22 00:[address]: Babatunde Ellsworth DEPT: CYTOLOGY RECD BY: Dorinda Cole ENTERED: 09/11/22 06:59 SP TYPE: CYSPIN FL OTHR DR: Dr. Lilo Grullon MD Tissues: Cerebrospinal Fluid Procedures: Pap Stain (control) Special Stain Group II Cytospin Fluid HEADER OPERATION: Lumbar puncture PRE-OP DIAGNOSIS: Normal pressure hydrocephalus TISSUE SUBMITTED: Cerebrospinal fluid for cytology DIAGNOSIS CYTOLOGY Cerebrospinal fluid for cytology (cytospin): Negative for malignant cells. AM:israel 09/11/2022 CYTOLOGY STUDY Slides are reviewed. CYTOLOGY GROSS Received is 6 ml of clear colorless fluid labeled with the patient's name and and designated per the requisition as CSF. Submitted for cytology preparation. / [place]rael 09/10/2022 TC:5 CPT: 79207
--- NOTE | 2022-09-10 12:43 | US_ITS ---
STUDY: THYROID ULTRASOUND REASON FOR EXAM: Female, 77 years old. 1.4 cm thyroid nodule noted on cervical spine MRI. TECHNIQUE: Ultrasound evaluation of the thyroid was performed with real-time and static sher-scale imaging. COMPARISON: MRI of the cervical spine, June 15, 2022. FINDINGS: RIGHT LOBE: The right lobe of the thyroid gland measures 3.9 x 1.5 x 1.7 cm. There is a heterogeneous echotexture. The upper pole there is a 0.9 x 0.7 x 0.5 cm mixed solid and cystic nodule. In the mid thyroid there is a 1.2 x 1.2 x 0.9 cm markedly hypoechoic mass. The lower pole are 0.7 x 0.7 x 0.5 mixed solid and cystic mass. Normal vascularity and Doppler imaging. LEFT LOBE: The left lobe of the thyroid gland measures 2.5 x 1.4 x 1.1 cm. There is a heterogeneous echotexture. There is a 0.4 x 0.4 x 0.3 cm anechoic structure in the upper pole. Normal vascularity on Doppler imaging. There is a 0.5 x 0.5 x 0.6 cm hyperechoic focus along the underside of the left thyroid. ISTHMUS: The isthmus measures 0.5 cm. The regional lymph nodes are normal. US/Thyroid IMPRESSION: Multiple bilateral thyroid nodules. The large hypoechoic nodule in the right thyroid is moderately suspicious, TR 4, by TI-RADS categorization. Recommend follow-up ultrasound at 1, 2, 3 and 5 years. The remainder of the nodules can be reevaluated at that time although none are clearly suspicious. Electronically Signed: Juan Hernandez DO at 23:41 EST ,
[2022-09-10 13:15] VITALS: BP 171/73; PULSE 68; RESP 18; TEMP 36.3; O2SAT 95; BMI 30.9
[2022-09-10] MEDS: Lidocaine 2% (5ml sdv) 5 ML VIAL.MPF INFILT (13:35)
--- NOTE | 2022-09-10 13:35 | RAD_ITS ---
PROCEDURE: Fluoroscopic guided Lumbar Puncture. DATE: 09/10/2022. CLINICAL INDICATION: Normal pressure hydrocephalus. PHYSICIAN: Reza Stevens M.D. MEDICATIONS: 1% lidocaine administered subcutaneously for local anesthesia. ACCESS SITE: Lower posterior back. NEEDLE: 22-gauge spinal needle. SPECIMEN: Approximately 25 mL clear]CSF fluid. FLUOROSCOPY TIME (if supplied): (0:32) minutes/seconds COMPLICATIONS: None immediate. The risks, benefits, and alternatives to the procedure were explained to the patient. The specific risks of bleeding, infection, and neurovascular injury were detailed and accepted. Witnessed informed consent was obtained. The patient was placed on the fluoroscopic table in the prone position. The level for needle entry was determined and marked. The overlying skin was cleaned and prepped in the usual sterile fashion. 2% lidocaine was administered subcutaneously for local anesthesia. Under fluoroscopic guidance a 22-gauge spinal needle was advanced. The thecal sac was entered at the L3- L4 vertebral level. The inner stylet was removed. There was spontaneous flow of clear CSF fluid. The patient was placed in a reversed Trendelenburg position. The opening and closing pressure was 5 mm. Approximately 25 mL of cerebrospinal fluid was collected using gravity. The specimen was collected and submitted to the laboratory for further evaluation. The needle was withdrawn,. Hemostasis was achieved and a sterile dressing placed. The patient tolerated the procedure well without any immediate complications. The patient was placed supine with head elevated and returned to the floor in stable condition. RAD/Dx Lumbar Puncture w/IMG Guide IMPRESSION: Successful fluoroscopic-guided lumbar puncture. Electronically Signed: Reza Stevens MD at 14:29 EST ,
[2022-09-10 14:00] LABS: Cytology, Body Fluid / CSF SEE PATHOLOGY REPORT
[2022-09-10 14:15] VITALS: BP 143/65; PULSE 71; RESP 18; O2SAT 97
[2022-09-10 14:40] LABS: Glucose Spinal Fluid 54 mg/dL (40-75)
[2022-09-10 14:47] VITALS: BP 155/75; PULSE 67; RESP 18; O2SAT 98
[2022-09-10 16:05] LABS: Appearance CSF (character) CLEAR (Clear); CSF Color COLORLESS (Colorless); RBC Count, Spinal Fluid 4 /mm-3 (None seen); Tested Tube # 3
[2022-09-10 16:06] LABS: Body Fluid QC Type(s) BF1Q; White Count, CSF 0 /mm-3 (0 - 5)
[2022-09-11 13:20] LABS: Pathologist Review Reviewed
[2022-09-13 19:41] LABS: VDRL Cerebrospinal Fluid Non Reactive (Non Rea:<1:1)
== END | disposition home or self-care (01) ==
PROVIDERS: PCP Family Medicine; Referring Provider Psychiatry & Neurology Neurology; Visit Provider Psychiatry & Neurology Neurology
DX: G91.2 (Idiopathic) normal pressure hydrocephalus (principal); G31.84 Mild cognitive impairment of uncertain or unknown etiology; N12 Tubulo-interstitial nephritis, not specified as acute or chronic; E04.1 Nontoxic single thyroid nodule
CPT/HCPCS: 62328; 76536; 82945; 84157; 86592; 87070; 87205; 88108; 88313; 89050; 89051

== ENCOUNTER → 2022-11-21 | Outpatient (CLI) | payer MEDICARE, SELFPAY ==
--- NOTE | 2022-11-21 16:35 | RAD_ITS ---
INDICATION: checking for tip of shunt catheter. EXAMINATION/TECHNIQUE: X-RAY - XR Abdomen 1 View COMPARISON: None FINDINGS: BOWEL GAS PATTERN: Non-obstructive. Significant colonic fecal retention. FREE AIR: Not assessed on a single supine view. ORGANOMEGALY: Not seen. CALCIFICATIONS: No abnormal calcifications observed. LOWER CHEST: No acute pathology. BONES AND SOFT TISSUES: Right hip prosthesis. Lumbar fusion hardware. Shunt catheter tip in the right hemipelvis. RAD/Abdomen Single View IMPRESSION: Shunt catheter tip in the right hemipelvis. Probable clinical constipation. Electronically Signed: Randy Tiwari MD at 0:09 EDT ,
== END | disposition home or self-care (01) ==
LOC: RAD 16:28
PROVIDERS: PCP Family Medicine; Referring Provider Surgery; Visit Provider Surgery
DX: Z98.2 Presence of cerebrospinal fluid drainage device (principal)
CPT/HCPCS: 74018

== ENCOUNTER 2022-11-28 09:31 | Day surgery (SDC) | payer MEDICARE, SELFPAY ==
--- NOTE | 2022-11-28 10:00 | EKG12_ITS ---
Test Reason : PRE OP Blood Pressure : / mmHG Vent. Rate : 061 BPM Atrial Rate : 061 BPM P-R Int : 172 ms QRS Dur : 076 ms QT Int : 430 ms P-R-T Axes : 053 002 031 degrees QTc Int : 432 ms Normal sinus rhythm Normal ECG When compared with ECG of 15-DEC-2018 13:26, No significant change was found Confirmed by MYLES AGUERO, MAC ([id number]), story editor JOANA BULLOCK ([id number]) on 12/02/2022 1:51:33 PM Referred By: Radha Singh Confirmed By:MAC BUENO MD
[2022-11-28 10:09] VITALS: BP 128/70; PULSE 69; RESP 18; TEMP 36.1; O2SAT 97; BMI 30.1
[2022-11-28] MEDS: Lactated Ringers 1,000 ML 15 ML IV (10:19)
--- NOTE | 2022-11-28 10:21 | HP.PCM_ITS ---
History and Physical Date of Admission: 11/28/22 Date of Service:? 11/19/22 MR#: [id number] Acct: [id number] Name:CHRISTIAN BLACKBURN Rep #: [id number] : 1945 ? ? Provider: Dr. Radha Singh MD Age/Sex:? 77/F ? ? Location: [facility] Status: Signed Intake Vital Signs ? 11/19/2312:46 Height 5 ft 3 in Weight: 173 lb 6 oz BMI 30.7 BP 146/81 H Blood Pressure Location Rt brachial Position Sitting Respiration 17 Pulse 69 Pulse Source Monitor Temp 97.1 F L Temp Source Temporal Pulse Oximetry (%) 98 Oxygen Delivery Method room air Intake Visit Reasons:?UPDATE H&P Chief Complaint: discuss surgery/update H&P Is patient in pain?: No Allergies mesalamine Adverse Reaction (Intermediate, Verified 11/19/22 13:47) myalgiahydrocodone bitartrate [From Vicodin] Adverse Reaction (Verified 11/19/22 13:47) NauseaMetronidazole HCl [From Flagyl] Adverse Reaction (Verified 11/19/22 13:47) Otheroxycodone HCl [From Percocet] Adverse Reaction (Verified 11/19/22 13:47) Nauseascopolamine Adverse Reaction (Verified 11/19/22 13:47) Other Medications calcium carbonate 600 mg-vitamin D3 20 mcg (800 unit) tablet 1,000 mg PO BIDCM supplement 10/13/14 [History Confirmed 11/19/22] multivitamin with folic acid 400 mcg tablet 1 tab PO DAILY supplement 10/13/14 [History Confirmed 11/19/22] duloxetine 30 mg capsule,delayed release (Cymbalta) 30 mg PO DAILY CHRONIC PAIN 09/17/18 [History Confirmed 11/19/22] aspirin 81 mg chewable tablet 81 mg PO DAILY dvt 10/16/18 [History Confirmed 11/19/22] biotin 1 mg capsule 1 mg PO DAILY 05/23/21 [History Confirmed 11/19/22] glucosamine 750 ew-sqjbqremmsr-ftr no1 644 mg-C 30 mg-charly 1 mg tablet (Osteo Bi-Flex Triple Strength) 2 tab PO DAILY 05/23/21 [History Confirmed 11/19/22] melatonin 5 mg tablet 5 mg PO QHS 05/23/21 [History Confirmed 11/19/22] vit A 7,160 unit-vit C 113 mg-vit E 100 yjzu-mvhn-ayrlpx tablet 2 tab PO DAILY 05/23/21 [History Confirmed 11/19/22] rosuvastatin 5 mg tablet 5 mg PO DAILY 11/01/21 [History Confirmed 11/19/22] budesonide 3 mg capsule,delayed,extended release See Rx Instructions .Route .COMPLEX #60 caps 06/03/22 [Rx Confirmed 11/19/22] Disability Placard #1 ea 07/10/22 [Rx Confirmed 11/19/22] Stairlift #1 ea 07/10/22 [Rx Confirmed 11/19/22] tamsulosin 0.4 mg capsule 0.4 mg PO QHS 09/10/22 [History Confirmed 11/19/22] meloxicam 7.5 mg tablet 7.5 mg PO BID PRN pain #60 tabs 09/11/22 [Rx Confirmed 11/19/22] estradiol 0.01% (0.1 mg/gram) vaginal cream 1 appful vaginal DAILY 11/19/22 [History Confirmed 11/19/22] PFSH Medical History? Anxiety and depression Arthritis Carpal tunnel syndrome Change in bowel habit Chronic back pain Compression fx, lumbar spine COVID Diarrhea Eosinophilic gastroenteritis Erosion of suburethral sling Gastric reflux GERD (gastroesophageal reflux disease) History of Clostridioides difficile infection History of Clostridium difficile History of pulmonary embolism Hx of cataract Hypoglycemia Internal hemorrhoid Obesity Osteoarthritis Pulmonary embolism Pyelonephritis Rheumatoid arthritis Rheumatoid arthritis Sciatic neuropathy Skin cancer Urinary retention UTI (urinary tract infection) Wears hearing aid Surgical History? history of bladder sling History of carpal tunnel surgery History of right hip replacement History of rotator cuff surgery History of surgical removal of skin lesion Status post total right knee replacement Family History? Brother Cancer AlcoholismSister Anxiety Depression Social History? household members:? spouse Smoking Status:? Never smoker second hand exposure:? No alcohol intake:? never substance use type:? does not use what type of physical activity do you participate in:? none ye/bahai:? Worship seatbelt use:? always HPI HPI HPI: 77-year-old female presents with her for right upper quadrant pain/history of biliary dyskinesia.? Patient recently had her HYPOID GEAR TESTER shunt placed 10/16/2022 at [facility].? Patient did have adjustment 2 weeks ago and will plan to have a follow-up appointment at the end of November.? Patient states she gets right upper quadrant pain she can be bandlike pressure abdomen states she gets it with eating ice cream, ham and cheese sandwiches patient denies any pain in the middle night or in the morning prior to eating.? Initially the plan was for the patient to call and get this set up prior to getting her HYPOID GEAR TESTER shunt placed. ROS General General: Yes weight change and fatigue; No weakness HEENT HEENT: No difficulty swallowing, eye injury, eye surgery, swollen glands or hoarseness Endo Endocrine: No thyroid disease, diabetes mellitus, thyroid cancer, Hair loss, heat intolerance or cold intolerance Skin Skin: No rash or changing moles Breast Breast: No left breast lump, right breast lump, nipple discharge, breast pain, abnormal mammogram, abnormal US or breast enlargement Musc Musculoskeletal: Yes arthritis; No back problems, rheumatoid arthritis, gout or joint pain Cardio Cardiovascular: No murmur, pacemaker, heart disease, atrial fibrillation, high blood pressure, heart attack, heart stent, palpitations, shortness of breat with exertion or chest pain Psych Psychiatric: No depression, anxiety or hearing voices Resp Respiratory: No shortness of breath, No sleep apnea, No cough, No COPD, No as thma, No emphysema and No wheezing Gastro Gastrointestinal: Yes abdominal pain, Yes nausea or vomiting, Yes diarrhea, Yes constipation, No blood in stool, No acid reflux, No hemorrhoids, No ulcers, Yes gallbladder problem and No black,tarry stools Sotero Hematologic: No blood thinners, No blood disorders, No bleeding, No anemia and No blood clots Neuro Neurologic: No system reviewed and no additional complaints, except as documented, No as per HPI, No abnormal gait, No abnormal hearing, No abnormal movements, No abnormal speech, No behavioral changes, No burning sensations, No confusion, No convulsions, No disequilibrium, No dizziness, No localized weakness, No frequent falls, No headache(s), No lack of coordination, No loss of vision, No memory loss, Yes numbness, No other visual disturbances, No radicular pain, No restless legs, No sensory deficit, No syncope, Yes tingling, No tremor(s), No weakness and No other Exam Const General: cooperative, healthy appearing and no acute distress HENOH Head: normal to inspection Other: HYPOID GEAR TESTER shunt palpated at the apex of scalp and the right neck Resp Effort & Inspection: normal respiratory effort Cardio Rate: regular rate GI Inspection: non-distended Palpation: soft, no guarding and nontender Skin General: no rashes or lesions noted Neuro General: patient oriented x3 Extrem General: no clubbing, cyanosis or edema Psych Affect: normal affect Assessment and Plan Assessment and Plan (1) Biliary dyskinesia: ?Status:?Acute (2) S/P HYPOID GEAR TESTER shunt: ?Status:?Acute Plan Discussed with the patient and her not have to check with imaging from [facility] to find out where exactly this shunt is placed also discussed that she would be at increased risk of infection due to surgery as initially a plan to do this prior.? Plan also discussed with patient's neurosurgeon. Reviewed the anatomy with the patient and discussed the procedure: laparoscopic cholecystectomy with possible cholangiograms, possible open. Review risks including but not limited to bleeding, infection, hernia, bile leak, retained gallstones requiring another procedure ERCP- Endoscopic Retrograde Cholangiopancreatography, injury to another organ (bile ducts, common bile duct, small bowel, etc.) and conversion to an open procedure. All questions were answered. Radha Singh M.D. Pager: [phone] [facility] [address] [place] [address], [address] [place] [address] Office: [phone] Coding Level of Care Code Off vis,est,level 4 Diagnoses Biliary dyskinesia? K82.8 S/P HYPOID GEAR TESTER shunt? Z98.2 11/21/22 0723 <Electronically signed by Radha Singh MD> Date Radha Singh MD
[2022-11-28] MEDS: Cefotetan 2 GM in 0.9% NS 100 ML IV (10:59)
--- NOTE | 2022-11-28 11:24 | RAD_ITS ---
STUDY: INTRAOPERATIVE CHOLANGIOGRAM. REASON FOR EXAM: Female, 77 years old. Laparoscopic cholecystectomy. FLUOROSCOPY TIME (if supplied): ( 11.1 seconds ) minutes/seconds. 4.51 mGy TECHNIQUE: An intraoperative Cholangiogram was performed by the surgeon. Imaging was provided. COMPARISON: None. FINDINGS: The intra and extrahepatic biliary ducts are unremarkable. No intraluminal filling defect is seen. There is free flow of contrast into the duodenum. RAD/Cholangiogram/ O R,Initial IMPRESSION: Unremarkable intraoperative cholangiogram. Electronically Signed: Reza Stevens MD at 12:39 EDT ,
--- NOTE | 2022-11-28 12:00 | GALL_PTH ---
PATIENT: CHRISTIAN ANNA [place] [facility] [id number] AGE/SX: 77/F ROOM: RE11/28/[address]: Dr. Radha Singh MD : 1945 BED: DIS: 11/28/2022 SPEC #: [id number] RECD: 11/28/22 14:18 STATUS: EVELYN REQ #: [id number] KAREN: 11/28/22 12:[address]: Radha Singh DEPT: SURGICAL PATHOLOGY RECD BY: Vicki Garces ENTERED: 11/29/22 09:30 SP TYPE: GARRY LANDA DR: Dr. Lilo Grullon MD Tissues: Gallbladder, NOS Procedures: Surgery Specimen Level III HEADER OPERATION: Laparoscopic cholecystectomy with IOC PRE-OP DIAGNOSIS: Biliary dyskinesia, status post SENIOR WEB DESIGNER shunt TISSUE SUBMITTED: Gallbladder MICROSCOPIC DIAGNOSIS Gallbladder, cholecystectomy: Mild chronic cholecystitis. See comment. SJ:israel 12/02/2022 COMMENT No stones are identified in the container or in the gallbladder. MICROSCOPIC DESCRIPTION Slides are reviewed. GROSS DESCRIPTION Received is one container labeled with the patient's name and designated gallbladder. The specimen consists of a gallbladder measuring 9.5 cm in length and up to 3.0 cm in diameter. The external surface is pink-garza, smooth and glistening for the most part. Focally it is granular, hemorrhagic and contains cautery artifact. The gallbladder contains green-yellow mucoid bile. No stones are identified in the container or in the gallbladder. The mucosa is bile-stained and without any mass lesions. The gallbladder wall measures up to 0.2 cm in thickness. Patent Lawyer sections from the gallbladder and the cystic duct are submitted in one cassette. / SJ:israel 11/29/2022 TC:3 CPT: [id number]
[2022-11-28] MEDS: Bupivacaine Mpf 0.5% 30 ML VIAL (12:11)
--- NOTE | 2022-11-28 12:17 | OP.PCM_ITS ---
Report of Operation Date of Procedure: 11/28/22 Pre-Operative Diagnosis: Biliary dyskinesia, normal pressure hydrocephalus stat us post INDUSTRIAL WASTE INSPECTOR shunt Post-Operative Diagnosis: Same Surgery/Procedure Performed:: Laparoscopic cholecystectomy with cholangiograms Surgeon: Radha Singh director call: Chris Chandler Type of Anesthesia: General/Supplemental Anesthesiologist: Derrick Smith Special Medications: Cefotetan 2 g IV x1 Specimen's removed: Gallbladder Estimated Blood Loss (mL): 10 cc Description of Procedure: Indications: this is a 77 year-old female who developed abdominal pain/nausea/vomiting and on workup was found to have biliary dyskinesia as she had no gallstones. Patient has past medical history for normal pressure hydrocephalus status post INDUSTRIAL WASTE INSPECTOR shunt last month. Laparoscopic cholecystectomy was elected. Description procedure: The patient was placed on operating table in supine position. A timeout was completed verifying correct patient, procedure, site, position and special equipment prior to beginning procedure. General Anesthesia was induced. The abdomen was prepped and draped in usual sterile fashion. An incision was made in the natural skin line [above] the umbilicus. The fascia was elevated and incised. The peritoneum was elevated and incised. Entry into the peritoneum was confirmed visually and no bowel was noted in the vicinity of the incision. Gipson trocar was placed. The abdomen was insufflated with carbon dioxide to a pressure of 12-15 mmHg. Patient tolerated insufflation well. The laparoscope was then inserted and abdomen inspected. No injuries from initial trocar placement were noted. Additional trochars were then inserted in the following locations 5 mm trocar in the epigastrium and 2 more 5 mm trochars along the right costal margin. The abdomen was inspected no abnormalities were found INDUSTRIAL WASTE INSPECTOR shunt was found to on the right upper quadrant?over the liver along the right pericolic gutter. The table is placed in reverse Trendelenburg position with the right side up. Adhesions between the gallbladder and omentum were divided. The dome of the gallbladder was grasped with atraumatic grasper passed through the lateral port and retracted over the dome of the liver. Infundibulum was then grasped with atraumatic grasper through the midclavicular port and retracted to the right lower quadrant. This maneuver exposed Calot's triangle. The peritoneum overlying the gallbladder infundibulum was then incised and cystic duct and artery identified and circumferentially dissected. Rufino catheter was used for cholangiograms. The cholangiogram showed good filling of the common bile duct into the duodenum with no filling defects, good filling of the right and left bile ducts as well. The cystic duct and artery were then doubly clipped and divided close to the gallbladder. The gallbladder then dissected from its peritoneal attachments by electrocautery. Hemostasis was checked and the gallbladder was removed using the endoscopic retrieval bag through the umbilical port. The gallbladder is passed off table as specimen. The gallbladder fossa was irrigated with saline and hemostasis obtained. There is no evidence of bleeding from the gallbladder fossa or cystic artery leakage of bile from the cystic duct stump. INDUSTRIAL WASTE INSPECTOR shunt was still overlying the liver and placed in the right pericolic gutter at the end of the case. Secondary trochars removed under direct vision. No bleeding was noted the t rocar sites. The laparoscope was withdrawn and umbilical trocar removed. The abdomen was allowed to collapse. The fascia of the 12 mm trocar was closed with a [id number]-os-ychgo 0 Vicryl suture. The skin was closed with sutures of 4-0 Monocryl and Steri-Strips. The patient was extubated. The patient tolerated procedure well and was taken to the postanesthesia care unit in stable condition. Complications none
--- NOTE | 2022-11-28 12:22 | EX.PCM.DISCH ---
Discharge Instructions Diet Discharge Diet: Light diet - advance as tolerated Activity Discharge Activity: May Not Drive (while taking narcotic pain medications.) May shower in (days): 1 Lifting Restrictions: no lifting >20 lbs x 2 wks, no strenuous exercise for 4 wks Dressing / Incision Call your doctor if your incision/area has: Continuous Slow Oozing, Sudden Increased Bleeding, Increased Pain/ Swelling, Increased Redness, Foul Smelling Discharge and Swelling at the incision site Call your doctor if you observe: Fever of 101 or Higher Remove Dressing in: 2 days Cleanse incision/area with: Soap & Water Additional Dressing/Incision Instructions:: Steri-Strips will fall off in 7 to 10 days, if they do not fall off okay to remove after 10 days. Follow Up Care Please Follow Up With: Radha Singh MD When: Call the office for a follow-up appointment 2 weeks; after 5 PM and on the weekends call [phone] with any concerns. Test Results: Test results from this visit will be discussed in further detail at your follow-up appointment, if applicable. Discharge Plan Admission Attending Provider: Radha Singh Primary Care Provider: Lilo Grullon Discharge Orders/Prescriptions Prescriptions: New tramadol 50 mg tablet 50 mg PO Q6H PRN (Reason: pain) Qty: 10 0RF Continued rosuvastatin 5 mg tablet 5 mg PO DAILY tamsulosin 0.4 mg capsule 0.4 mg PO QHS estradiol 0.01 % (0.1 mg/gram) cream 1 appful vaginal DAILY Rx Instructions: for 14 days multivitamin with folic acid 1 TABLET tablet 1 tab PO DAILY Label Comments: vitamin supplement duloxetine [Cymbalta] 30 MG capsule 30 mg PO DAILY vit A-vit C-vit G-kbwl-ipbfio 7,160-113-100 ljco-mq-ocvn Tablet 2 tab PO DAILY melatonin 5 mg Tablet 5 mg PO QHS biotin 1 mg Capsule 1 mg PO DAILY omeprazole 40 mg capsule,delayed release(DR/EC) 40 mg PO DAILY Label Comments: TAKE 1 CAPSULE BY MOUTH ONCE DAILY fiber Tablet 1 tab PO BID calcium-vitamin D3-vitamin K 500-100-40 mg-unit-mcg Tablet,Chewable 1 tab PO BID cholecalciferol (vitamin D3) [Vitamin D3] 125 mcg (5,000 unit) Tablet 125 mcg PO DAILY turmeric 400 mg Capsule 400 mg PO DAILY meloxicam 7.5 mg tablet 5 mg PO BID PRN (Reason: pain) budesonide 3 mg capsule,delayed,extend.release See Rx Instructions .ROUTE .COMPLEX Rx Instructions: Take 2 capsules by mouth once daily (DME) Disability Placard See Rx Instructions .Route .MEDSUPPLY Qty: 1 0RF Rx Instructions: Expiration: 07/10/2025 (DME) Stairlift See Rx Instructions .Route .MEDSUPPLY Qty: 1 0RF Rx Instructions: Stairlift needed for Brayan Suggs, Date of : 41, [place] Customer Number: [phone] Held aspirin 81 MG tablet,chewable 81 mg PO DAILY Hold Instructions: Resume on 11/30/22. Referrals / Follow Up: Lilo Grullon MD [Primary Care Provider] - Disposition Disposition (needs filled in before D/C Order can be placed): Home, Self Care
[2022-11-28 12:32] VITALS: BP 128/70; BP 153/76; PULSE 58; RESP 14; TEMP 36.5; O2SAT 100
[2022-11-28 12:45] VITALS: BP 128/70; BP 153/74; PULSE 57; RESP 16; O2SAT 100
[2022-11-28 13:00] VITALS: BP 128/70; BP 156/82; PULSE 61; RESP 16; O2SAT 95
[2022-11-28 13:19] VITALS: BP 128/70; BP 137/82; PULSE 65; RESP 16; TEMP 36; O2SAT 92
[2022-11-28] MEDS: traMADol 50 MG Tablet PO (14:28)
[2022-11-28 15:30] VITALS: BP 122/76; BP 128/70; PULSE 76; RESP 16; O2SAT 98
== END 2022-11-28 15:32 | disposition home or self-care (01) ==
LOC: SDC 09:36 → AC 09:36
PROVIDERS: PCP Family Medicine; Referring Provider Surgery; Visit Provider Surgery
PROC: (CPT 47610; principal; 2022-11-28 11:40)
DX: K81.1 Chronic cholecystitis (principal); M06.9 Rheumatoid arthritis, unspecified; G91.2 (Idiopathic) normal pressure hydrocephalus; E78.00 Pure hypercholesterolemia, unspecified; K21.9 Gastro-esophageal reflux disease without esophagitis; E66.9 Obesity, unspecified; Z68.30 Body mass index [BMI] 30.0-30.9, adult; G47.30 Sleep apnea, unspecified; Z98.2 Presence of cerebrospinal fluid drainage device; Z79.82 Long term (current) use of aspirin; Z79.899 Other long term (current) drug therapy; Z86.711 Personal history of pulmonary embolism; Z86.73 Personal history of transient ischemic attack (TIA), and cerebral infarction without residual deficits
CPT/HCPCS: 47563; 00790; 74300; 76000; 88304; 93005; J7120; J2405

== ENCOUNTER → 2023-04-01 | Outpatient (CLI) | payer MEDICARE, SELFPAY ==
[2023-04-01 18:11] LABS: Sodium Level 142 mmol/L (136-145)
== END | disposition home or self-care (01) ==
LOC: LAB 16:56
PROVIDERS: PCP Family Medicine; Referring Provider Psychiatry & Neurology Neurology; Visit Provider Psychiatry & Neurology Neurology
DX: R35.0 Frequency of micturition (principal)
CPT/HCPCS: 36415; 84295

== ENCOUNTER → 2023-04-10 | Outpatient (CLI) | payer MEDICARE, SELFPAY ==
--- NOTE | 2023-04-10 14:29 | BI_ITS ---
MAMMOGRAPHY - BILATERAL SCREENING REASON FOR EXAM: Female, 77 years old. Routine annual screening examination. PERTINENT HISTORY: Aunt with breast cancer. TECHNIQUE: Digital bilateral breast gino (3D mammographic acquisition) in the CC and MLO projections. 2-D mediolateral oblique (MLO) and craniocaudad (CC) views of both breasts were obtained. CAD: Full Field Digital Mammography with Computer Added Detection was performed. COMPARISON: Comparison is made with prior study February 26, 2022 and May 01, 2020. FINDINGS: Breast Composition: There are scattered areas of fibroglandular density. There are no dominant masses or suspicious calcifications. No other significant abnormalities are identified. There has been no significant change since the prior study. BI/SCRN MAMM (CAD)W/GINO BILAT IMPRESSION: Stable bilateral screening mammogram. Yearly follow-up mammogram recommended. (A) ASSESSMENT CATEGORY: BIRADS Category 1: Negative. A letter regarding these results will be sent to the patient by the facility within 30 days. Approximately 10% of breast cancers are not detected by mammography. A normal mammogram should not delay biopsy of a clinically suspicious abnormality. [id number] Electronically Signed: Reza Stevens MD at 15:26 EDT ,
== END | disposition home or self-care (01) ==
LOC: OPBI 14:29
PROVIDERS: PCP Family Medicine; Referring Provider Family Medicine; Visit Provider Family Medicine
DX: Z12.31 Encounter for screening mammogram for malignant neoplasm of breast (principal)
CPT/HCPCS: 77063; 77067

== ENCOUNTER 2023-10-31 11:50 | Outpatient (CLI) | payer MEDICARE, SELFPAY ==
[2023-10-31 15:43] LABS: Absolute Neutrophil Count 3.2 X10^3/uL (2.0-7.7); Basophil# 0.06 X10^3/uL; Basophil% 1.1 % (0-1); Eosinophil# 0.17 X10^3/uL; Hematocrit 42.8 % (37-47); Hemoglobin 13.7 g/dL (12.0-15.0); Lymphocyte % 33.3 % (19-41); Mean Corpuscular Volume 87.5 fL (81-99); Mean Platelet Vol. 10.8 fl (6.2-12.0); Monocyte# 0.38 X10^3/uL; Monocyte% 6.7 % (0-10); NRBC Flagged by Analyzer 0 % (0-5); Neutrophil # 3.19 X10^3/uL (2.7-7.7); Neutrophil % 55.7 % (47-70); Platelet Count 219 K/mm3 (150-450); RBC Distribution Width CV 14.6 % (11.6-14.6); RBC Distribution Width SD 47.1 fl (35.1-43.9); Red Blood Count 4.89 M/mm3 (4.2-5.4); White Blood Count 5.7 K/mm3 (4.4-11.0)
[2023-10-31 16:29] LABS: ALB/GLOB Ratio 0.9 RATIO (0.9-2.4); AST(SGOT) 19 U/L (15-37); Alanine Aminotransfer ALT/SGPT 17 U/L (13-56); Albumin, Serum 3.4 g/dL (3.2-5.0); Alkaline Phosphatase 63 U/L (45-117); Anion Gap 3 (5-15); BUN 12 mg/dL (7-18); BUN/Creat Ratio 13.1 RATIO (10-20); Calcium,Total 9.6 mg/dL (8.5-10.1); Chloride 107 mmol/L (98-107); Creatinine, Serum 0.91 mg/dL (0.55-1.02); EST Glomerular Filtration Rate 63 mL/min (>60); Est Glom Filt Rate - Afr Amer 76 mL/min (>60); Globulin 3.7 g/dL (2.2-4.2); Glucose 94 mg/dL (74-106); Potassium 3.8 mmol/L (3.5-5.1); Protein, Total 7.1 g/dL (6.4-8.2); Sodium Level 141 mmol/L (136-145); Thyroid Stim Hormone (TSH) 1.87 uIU/mL (0.358-3.74)
== END 2023-10-31 23:59 | disposition home or self-care (01) ==
LOC: MFPLAB 11:50
PROVIDERS: PCP Family Medicine; Visit Provider Family Medicine
DX: R60.0 Localized edema (principal)
CPT/HCPCS: 36415; 80053; 84443; 85025

== ENCOUNTER → 2024-02-03 | Outpatient (CLI) | payer MEDICARE, SELFPAY ==
[2024-02-03 17:43] LABS: Absolute Lymphocyte Count 1.99 X10^3/uL (0.83-4.51); Basophil# 0.05 X10^3/uL; Basophil% 0.8 % (0-1); Eosinophil# 0.15 X10^3/uL; Eosinophils% 2.3 % (0-5); Hematocrit 42.2 % (37-47); Hemoglobin 13.8 g/dL (12.0-15.0); Lymphocyte # 1.99 X10^3/ul (0.83-4.51); Lymphocyte % 29.9 % (19-41); Mean Corp Hgb Conc 32.7 g/dL (32-36); Mean Corpuscular Hgb 28.5 pg (27.0-32.0); Mean Corpuscular Volume 87.2 fL (81-99); Mean Platelet Vol. 10.5 fl (6.2-12.0); Monocyte# 0.43 X10^3/uL; Monocyte% 6.5 % (0-10); NRBC Flagged by Analyzer 0 % (0-5); Neutrophil # 4.02 X10^3/uL (2.7-7.7); Neutrophil % 60.2 % (47-70); Platelet Count 210 K/mm3 (150-450); RBC Distribution Width CV 15.2 % (11.6-14.6); RBC Distribution Width SD 48.1 fl (35.1-43.9); Red Blood Count 4.84 M/mm3 (4.2-5.4); White Blood Count 6.7 K/mm3 (4.4-11.0)
[2024-02-03 18:04] LABS: ALB/GLOB Ratio 0.8 RATIO (0.9-2.4); AST(SGOT) 11 U/L (15-37); Alanine Aminotransfer ALT/SGPT 29 U/L (13-56); Albumin, Serum 3.3 g/dL (3.2-5.0); Alkaline Phosphatase 105 U/L (45-117); Anion Gap 7 (5-15); BUN 17 mg/dL (7-18); BUN/Creat Ratio 17.8 RATIO (10-20); Calcium,Total 8.8 mg/dL (8.5-10.1); Chloride 106 mmol/L (98-107); Creatinine, Serum 0.96 mg/dL (0.55-1.02); EST Glomerular Filtration Rate 60 mL/min (>60); Est Glom Filt Rate - Afr Amer 72 mL/min (>60); Globulin 3.9 g/dL (2.2-4.2); Glucose 110 mg/dL (74-106); Magnesium 2.3 mg/dL (1.6-2.6); Potassium 4.1 mmol/L (3.5-5.1); Protein, Total 7.2 g/dL (6.4-8.2); Sodium Level 138 mmol/L (136-145)
== END | disposition home or self-care (01) ==
LOC: MTLAB 16:58
PROVIDERS: PCP Family Medicine; Referring Provider Family Medicine; Visit Provider Family Medicine
DX: R19.7 Diarrhea, unspecified (principal)
CPT/HCPCS: 36415; 80053; 83735; 85025

== ENCOUNTER → 2024-02-09 | Outpatient (CLI) | payer MEDICARE, SELFPAY | END | disposition home or self-care (01) | PROVIDERS: PCP Family Medicine; Visit Provider Family Medicine | DX: R19.7 Diarrhea, unspecified (principal) | CPT/HCPCS: 87493 ==

== ENCOUNTER → 2025-03-14 | Outpatient (CLI) | payer MEDICARE, SELFPAY ==
[2025-03-14 18:04] LABS: Hematocrit 41.0 % (37-47); Hemoglobin 13.4 g/dL (12.0-15.0); Mean Corp Hgb Conc 32.7 g/dL (32-36); Mean Corpuscular Volume 88.2 fL (81-99); Mean Platelet Vol. 10.4 fl (6.2-12.0); Platelet Count 204 K/mm3 (150-450); RBC Distribution Width CV 15.4 % (11.6-14.6); RBC Distribution Width SD 49.7 fl (35.1-43.9); Red Blood Count 4.65 M/mm3 (4.2-5.4); White Blood Count 5.7 K/mm3 (4.4-11.0)
[2025-03-14 18:37] LABS: Cholesterol 238 mg/dL (<=200); Free T3 2.2 pg/mL (2.18-3.98); Low Density Lipoprotein Calc. 131 mg/dL; Pro- Brain NATRIURETIC PEPTIDE 103 pg/mL (<=1800); Triglycerides 262 mg/dL; Troponin T High Sensitivity 21 ng/L (<=14); Very Low Density Lipoprotein 52 mg/dL (5-40); Vitamin D,25 Hydroxy 54.2 ng/mL (30-100); cholesterol:hdl ratio screen 4.34
[2025-03-14 18:40] LABS: AST(SGOT) 21 U/L (<=31); Alanine Aminotransfer ALT/SGPT 17 U/L (<=34); Albumin, Serum 3.8 g/dL (3.4-4.8); Alkaline Phosphatase 92 U/L (35-104); Anion Gap 13 (5-15); BUN 14 mg/dL (4-19); BUN/Creat Ratio 15.0 RATIO (10-20); Calcium,Total 9.4 mg/dL (7.6-11.0); Carbon Dioxide 24.0 mmol/L (21.0-32.0); Chloride 105 mmol/L (98-108); Globulin 3.0 g/dL (2.2-4.2); Glucose 93 mg/dL (70-99); Potassium 3.9 mmol/L (3.3-5.1)
[2025-03-17 08:08] LABS: Thyroid Stim Immunoglob <0.10 IU/L (0.00-0.55)
== END | disposition home or self-care (01) ==
LOC: MFPLAB 14:17
PROVIDERS: PCP Family Medicine; Referring Provider Family Medicine; Visit Provider Family Medicine
DX: R06.02 Shortness of breath (principal); E78.00 Pure hypercholesterolemia, unspecified; E04.1 Nontoxic single thyroid nodule; R77.0 Abnormality of albumin
CPT/HCPCS: 36415; 80053; 80061; 82306; 83880; 84439; 84443; 84445; 84481; 84484; 85027

== ENCOUNTER → 2025-04-11 | Outpatient (CLI) | payer MEDICARE, SELFPAY ==
--- NOTE | 2025-04-11 07:22 | EKG12_ITS ---
Test Reason : CP Blood Pressure : */* mmHG Vent. Rate : 69 BPM Atrial Rate : 69 BPM P-R Int : 160 ms QRS Dur : 78 ms QT Int : 412 ms P-R-T Axes : 54 18 39 degrees QTcB Int : 441 ms Normal sinus rhythm Normal ECG When compared with ECG of 28-Nov-2022 10:38, No significant change was found Confirmed by MYLES AGUERO, MAC ([id number]), script editor LUIS JAMA [id number]) on 04/11/2025 10:34:21 AM Referred By: Renan Fishman Confirmed By: MAC BUENO MD
--- OUTSIDE RECORDS SUMMARY | 2025-04-11 07:25 | XMS RPT_ITS | CCD ---
Author Organization [facility] Care Team Providers Care Employee Benefits Administrator Name Role Phone Dr. Lilo Grullon Primary Care Provider Dr. Lilo Grullon Referring Provider [phone] Godwin Alvarez Attending Provider Dr. Silver Ruggiero Attending Provider Lilo Grullon Primary Care Provider [phone] Dr. Lilo Grullon Primary Care Provider Dr. Lilo Grullon Referring Provider [phone] Silver Ruggiero Attending Provider Dr. Godwin Alvarez Attending Provider [phone] Lilo Grullon Primary Care Provider Dr. Lilo Grullon Referring Provider [phone] Silver Ruggiero Attending Provider [phone] Godwin Alvarez Attending Provider [phone] LEONELA STEIN Admitting Unavailable LEONELA STEIN Attending Unavailable CONKLE-LAGROUX MANN Referring Unavaila ble LILO GRULLON Primary Care Unavailable OMAYRA PEARCE Consulting Unavailab Lilo Mina Primary Care Provider [phone] FABY SANTANA Admitting Unavailable FABY SANTANA Attending Unavailable LILO GRULLON Primary Care Unavailable Dr. Lilo Grullon Primary Care Provider Dr. Lilo Grullon Referring Provider [phone] Godwin Alvarez Attending Provider [phone] Silver Ruggiero Attending Provider Dr. Radha Singh Attending Provider Dr. Lilo Grullon Primary Care Provider Dr. Lilo Grullon Referring Provider Dr. Silver Ruggiero Attending Provider Dr. Radha Singh Attending Provider Dr. Radha Singh Referring Provider Francisco, Dr. Garcia Other Provider JOLLIFF, LILO LEAH Primary Care Unavailable DEBI HACKETT Attending Unavail able JOLLIFF, LILO LEAH Primary Care Unavailable PRIYANKA REYNOLDS Attending Unavailable JOLLIFF, LILO LEAH Primary Care Unavailable SILVER RUGGIERO Referring Unavaila ble FABY SATNANA Referring Unavailable JOLLIFF, LILO LEAH Primary Care Unavailable JOLLIFF, LILO LEAH Primary Care Unavailable FABY SANTANA Attending Unavailable JOLLIFF, LILO LEAH Primary Care Unavailable FABY SANTANA Attending Unavailable JOLLIFF, LILO LEAH Primary Care Unavailable Dr. Lilo Grullon Primary Care Provider Dr. Lilo Grullon Referring Provider Dr. Silver Ruggiero Attending Provider Dr. Godwin Alvarez Attending Provider Dr. Lilo Grullon Primary Care Provider Dr. Lilo Grullon Referring Provider Dr. Godwin Alvarez Attending Provider Jolliff, Lilo Leah Primary Care Provider JOLLIFF, LILO LEAH Primary Care Unavailable MATEO HUMMEL Attending Unavailable JOLLIFF, LILO LEAH Primary Care Unavailable JOLLIFF, LILO LEAH Primary Care Unavailable JOLLIFF, LILO LEAH Primary Care Unavailable MATEO HUMMEL Attending Unavailable JOLLIFF, LILO LEAH Primary Care Unavailable ONEL SETHI Attending Unavailable KHAYYATJEAN Attending Unavailable JOLLIFF, LILO LEAH Primary Care Unavailable JEAN RODRÍGUEZ Attending Unavailable JOLLIFF, LILO LEAH Primary Care Unavailable JOLLIFF, LILO LEAH Primary Care Unavailable TOR AGUILAR Attending Unavailable JOLLIFF, LILO LEAH Primary Care Unavailable MATEO HUMMEL Attending Unavailable JOLLIFF, LILO LEAH Primary Care Unavailable REHAN MORALES Attending Unava cesar Grullon MD, Dr. Lilo Waggoner Primary Care Provider Tenzin AGUERO, Dr. Freed Attending Provider Kye AGUERO, Renan Primary Care Provider Kye AGUERO, Renan Attending Provider Kye AGUERO, Renan Referring Provider Friend, Godwin Attending Unavailable Jolliff, Lilo S Primary Care Unavailable Jolliff, Lilo S Referring Unavailable Kye, Chalon Primary Care Unavailable Kye, Chalon Attending Unavailable Kye, Chalon Referring Unavailable Kye, Chalon Primary Care Unavailable Kye, Chalon Attending Unavailable Kye, Chalon Referring Unavailable Kye, Chalon Primary Care Unavailable Kye, Chalon Attending Unavailable Kye, Chalon Referring Unavailable Friend, Godwin Attending Unavailable Jolliff, Lilo S Primary Care Unavailable Jolliff, Lilo S Referring Unavailable Allergies Allergy Classification Reported Allergen(s) Allergy Type Date of Onset Reaction(s) Facility (20 sources) HYDROcodone; Translations: [HYDROCODONE BITARTRATE] Drug Allergy 09-17-19 19 GI Upset [facility] Comment on above: loopy (20 sources) mesalamine; Translations: [MESALAMINE] Drug Allergy 09-25-19 22 Myalgia [facility] (15 sources) metroNIDAZOLE; Translations: [Metronidazole HCl] Drug Allergy 05-23-20 21 Other [facility] (15 sources) oxyCODONE; Translations: [oxycodone HCl] Drug Allergy 05-23-20 21 Nausea, Other [facility] Comment on above: loopy (20 sources) Scopolamine; Translations: [SCOPOLAMINE] Drug Allergy 09-17-19 19 Other: See Comments [facility] Comment on above: halluncinations (20 sources) oxyCODONE; Translations: [OXYCODONE] Drug Allergy 09-17-19 19 GI Upset [facility] (20 sources) Nitroimidazoles; Translations: [NITROIMIDAZOLES] Drug Intolerance 01-15-20 16 Other: See Comments [facility] (5 sources) Nitroimidazoles Drug Intolerance 01-15-20 16 Other: See Comments [facility] (1 source) mesalamine Drug Allergy 09-04-19 [facility] (1 source) Scopolamine Drug Allergy 09-04-19 [facility] Medications Current Medications Medication Drug Class(es) Dates Sig (Normalized) Sig (Original) aspirin 81 mg delayed release oral tablet (20 sources) Platelet Aggregation Inhibitor, Nonsteroidal Anti-inflammatory Drug Start: 11-04-2022 take 1 tablet by mouth once daily aspirin, enteric coated (ASPIRIN, ENTERIC COATED) 81 mg EC tablet Take 1 tablet by mouth once daily. To begin on 11/04/22 11/04/2022 Active Start: 11-04-2022 take 1 tablet by pat th once daily aspirin, enteric coated (ASPIRIN, ENTERIC COATED) 81 mg EC tablet Take 1 tablet by mouth once daily. To begin on 11/04/22 0 11/04/2022 Active Start: 11-04-2022 take 1 tablet by pat th once daily aspirin, enteric coated (ASPIRIN, ENTERIC COATED) 81 mg EC tablet Take 1 tablet by mouth once daily. To begin on 11/04/22 0 11/04/2022 Active Start: 11-04-2022 take 1 tablet by pat th once daily aspirin, enteric coated (ASPIRIN, ENTERIC COATED) 81 mg EC tablet Take 1 tablet by mouth once daily. 0 11/04/2022 Active Start: 10-16-2018 take 1 tablet by pat th once daily Aspirin 81 MG tablet,chewable Active 81 mg PO DAILY October 16, 2018 4:44pm dvt On Hold: Resume on 11/30/22. Start: 10-15-2018 End: 10-16-2018 take 1 tablet by mouth twice daily at mealtime Aspirin 81 MG Tab.Chew Discontinued 81 mg PO TWICE DAILY WITH MEALS 30 0 October 15, 2018 12:00am November 13, 2018 12:00am October 16, 2018 4:44pm Take 81 mg aspirin twice daily with food for 4 weeks postoperatively for DVT prophylaxis Start: 04-16-2018 End: 10-15-2018 take 1 tablet by mouth once daily Aspirin 81 MG Tab.Chew Discontinued 81 mg PO DAILY April 16, 2018 12:00am October 15, 2018 8:57am Phone.[email or web address] Start: 10-26-2014 End: 11-01-2014 take 1 tablet by mouth twice daily at mealtime Aspirin 325 MG tablet Discontinued 325 mg PO TWICE DAILY WITH MEALS 60 0 October 26, 2014 12:00am November 01, 2014 9:36am End: 08-21-2022 take 1 tablet by mouth once daily aspirin, enteric coated (ASPIRIN, ENTERIC COATED) 81 mg EC tablet Take 81 mg by mouth once daily. 08/21/2022 Discontinued take 1 capsule by [facility] once daily aspirin 81 mg cap Take 1 capsule by mouth once daily. 0 Active Comment on above: Take 81 mg by mouth once daily. Take by mouth. Take 1 capsule by [facility] once daily. Take 1 tablet by [facility] once daily. Take 1 tablet by [facility] once daily. To begin on 11/04/22 biotin 1 mg oral capsule (20 sources) Start: 1 take 1 capsule by mouth once daily Biotin 1 mg Capsule Active 1 mg PO DAILY May 23, 2021 12:00am SUPPLEMENT Comment on above: Take 1 capsule by [facility] once daily. budesonide 3 mg delayed release oral capsule (20 sources) Corticosteroid Start: 2 End: 5 take 2 capsules by mouth once daily Budesonide 3 mg capsule,delayed,ex tend.release Active 6 mg PO DAILY 60 0 January 26, 2025 4:57pm Start: 02-11-2022 End: 10-30-2023 take 2 capsules by mouth once daily before breakfast budesonide, enteric coated (ENTOCORT EC) 3 mg 24 hr capsule Indications: Cervical spondylosis without myelopathy , Neck pain Take 2 capsules by mouth daily before breakfast. Resume after Dexamethasone completed 06/27/2022 Active Start: 11-01-2021 End: 02-11-2022 take 3 mg by mouth once daily Budesonide 6 mg capsule, extended release Discontinued 3 mg PO DAILY November 01, 2021 8:03am Anisha 25th, 2022 12:10pm Start: 11-01-2021 End: 02-11-2022 take 3 mg by mouth once daily Budesonide Discontinued 3 MG PO DAILY November 01, 2021 8:03am February 11, 2022 12:10pm Start: 05-30-2021 End: 11-01-2021 take 1 capsule by mouth once daily Budesonide 6 mg capsule, extended release Discontinued 6 mg PO DAILY 30 3 October 04, 2021 3:54pm November 01, 2021 8:04am Comment on above: Take 6 mg by mouth d aily before breakfast. Take 2 capsules by m outh daily before breakfast. Resume after Dexamethasone completed calcium carbonate 1500 mg / cholecalciferol 800 unt oral tablet (9 sources) Vitamin D Start: 10-14-19 take 1000 mg by mouth twice daily at mealtime Calcium Carbonate-Vitam in D3 Active 1000 MG PO TWICE DAILY WITH MEALS October 12, 2014 11:00pm CALCIUM-VITAMIN D3 ORAL (20 sources) take 1 capsule by mouth once daily CALCIUM-VITAMIN D3 ORAL Take 1 capsule by mouth once daily. Active take 1 capsule by mouth once fela ly CALCIUM-VITAMIN D3 ORAL Take 1 capsule by mouth once daily. 0 Suspended take 1 capsule by mouth once fela ly CALCIUM-VITAMIN D3 ORAL Take 1 capsule by mouth once daily. 0 Active Comment on above: Take 1 capsule by mo uth once daily. cholestyramine resin 4000 mg powder for oral suspension (15 sources) Bile Acid Sequestrant Start: 04-28-20 End: 07-15-20 take 1 dose by mouth once daily Cholestyramine (With Sugar) 4 gram powder Active 4 g PO DAILY 348.6 0 July 15, 2024 2:28pm administer w/meal; avoid other meds within 1hr before or 4-6hr after dose Start: 03-08-2024 End: 04-28-2024 take 1 dose by mouth once daily Cholestyramine (With Sugar) 4 gram powder Discontinued 4 g PO DAILY 348.6 0 March 08, 2024 12:00am April 28, 2024 1:47pm administer w/meal; avoid other meds within 1hr before or 4-6hr after dose Start: 03-11-2023 End: 01-30-2024 cholestyramine low-calorie ( QUESTRAN) 4 gram packet Start: 05-22-2022 End: 09-10-2022 take 1 dose by mouth twice daily Cholestyramine (With Sugar) 4 gram powder Discontinued 4 g PO TWICE A DAY 348.6 0 May 22, 2022 12:00am September 10, 2022 12:41pm avoid other meds within 1hr before or 4-6hr after dose Start: 05-22-2022 End: 09-10-2022 take 1 dose by mouth twice daily Cholestyramine (With Sugar) Discontinued 4 GM PO TWICE A DAY 348.6 May 22, 2022 12:00am September 10, 2022 12:41pm avoid other meds within 1hr before or 4-6hr after dose Start: 05-22-2022 End: 09-10-2022 take 1 dose by mouth twice daily Cholestyramine (With Sugar) Discontinued 4 GM PO TWICE A DAY 348.6 May 21, 2022 11:00pm September 10, 2022 11:41am avoid other meds within 1hr before or 4-6hr after dose Start: 05-22-2022 take 1 dose by mouth twice daily Cholestyramine (With Sugar) Active 4 GM PO TWICE A DAY 348.6 May 21, 2022 11:00pm avoid other meds within 1hr before or 4-6hr after dose Disability Placard (6 sources) Start: 07-10-2022 Disability Jovan card Active 0 .Route .MEDSUPPLY 1 0 July 10, 2022 1:00am Expiration: 07/10/2025 Start: 07-10-2022 Disability Jovan card Active 0 .Route .MEDSUPPLY July 10, 2022 1:00am Expiration: 07/10/2025 Start: 07-10-2022 Disability Jovan card Active 0 .Route .MEDSUPPLY July 10, 2022 12:00am Expiration: 07/10/2025 DULoxetine 30 mg delayed release oral capsule (20 sources) Serotonin and Norepinephrine Reuptake Inhibitor Start: 12-17-2015 take 1 capsule by mouth once daily Duloxetine (Cymbalta) 30 MG capsule Active 30 mg PO DAILY September 17, 2018 1:00am CHRONIC PAIN Comment on above: Take 1 capsule by [facility] daily at bedtime. Lnzbkixt-Jogb-Pes 6-Y-Zlrs-Bosw (Osteo Bi-Flex Triple Strength) 750 mg-644 mg- 30 mg-1 mg Tablet (9 sources) Start: 05-23-2021 take 2 tablets by mouth once daily Kmvgpvop-Yxut-Bg l1-G-Xfib-Bosw (Osteo Bi-Flex Triple Strength) 750 mg-644 mg- 30 mg-1 mg Tablet Active 2 TABLET PO DAILY May 23, 2021 12:34pm Start: 05-23-2021 take 2 tablets by mouth once daily Ijqxuoll-Khnt-Sfo7-C-Charly-Bosw (Osteo Bi -Flex Triple Strength) 750 mg-644 mg- 30 mg-1 mg Tablet Active 2 TABLET PO DAILY May 22, 2021 11:00pm Start: 05-23-2021 take 2 tablets by mouth once daily Pamsiknp-Bhig-Xsw4-C-Charly-Bosw (Osteo Bi -Flex Triple Strength) 750 mg-644 mg- 30 mg-1 mg Tablet Active 2 TABLET PO DAILY May 23, 2021 12:00am levoFLOXacin 500 mg oral tablet (1 source) Quinolone Antimicrobial Start: 07-01-2024 take 1 tablet by mouth once daily Levofloxacin 500 mg tablet Active 500 mg PO daily 14 0 July 01, 2024 1:00am meclizine hydrochloride 25 mg oral tablet (2 sources) Antiemetic Start: 06-15-2024 End: 06-22-2024 take 1 tablet by mouth three times daily meclizine (ANTIVERT) 25 mg tab Take 1 tablet by mouth three times a day for 7 days. 21 tablet 06/15/2024 06/22/2024 Active melatonin 5 mg oral tablet (20 sources) Start: 05-23-2021 take 1 tablet by mouth at bedtime Melatonin 5 mg Tablet Active 5 mg PO AT BEDTIME May 23, 2021 12:00am SLEEP take 1 capsule by mo uth once daily at bedtime Melatonin 5 mg cap Take 1 capsule by pat th daily at bedtime. Active Comment on above: Take 1 capsule by mo uth daily at bedtime. multivitamin ORAL tablet (20 sources) Start: 1 take 1 tablet by mouth once daily multivitamin ORAL tablet Take 1 tablet by mouth once daily. 0 06/06/2011 Suspended Start: 06-06-2011 take 1 tablet by pat th once daily multivitamin ORAL tablet Take 1 tablet by mouth once daily. 0 06/06/2011 Active Comment on above: Take 1 tablet by pat th once daily. Multivitamin With Folic Acid (13 sources) Start: 10-13-2014 take 1 tablet by mouth once daily Multivitamin With Folic Acid Active 1 TABLET PO DAILY October 13, 2014 10:46am Start: 10-13-2014 take 1 tablet by pat th once daily Multivitamin With Folic Acid Active 1 TABLET PO DAILY October 12, 2014 11:00pm Start: 10-13-2014 take 1 tablet by pat th once daily Multivitamin With Folic Acid Active 1 TABLET PO DAILY October 13, 2014 12:00am Multivitamin With Folic Acid 1 TABLET tablet (1 source) Start: 10-13-2014 take 1 tablet by mouth once daily Multivitamin With Folic Acid 1 TABLET tablet Active 1 {tbl} PO DAILY October 13, 2014 12:00am supplement omeprazole 40 mg delayed release oral capsule (20 sources) Proton Pump Inhibitor Start: 06-07-2021 End: 03-26-2022 omeprazole (PRILOSEC) 20 mg capsule Take 20 mg by mouth as needed. 0 06/07/2021 03/26/2022 Discontinued Start: 06-05-2021 End: 07-12-2024 take 1 capsule by mouth once daily Omeprazole 40 mg capsule,delayed release(DR/EC) Active 40 mg PO DAILY 19 06July 12, 2024 9:39am GERD Comment on above: Take 40 mg by mouth once daily. Take 20 mg by mouth as needed. rosuvastatin calcium 5 mg oral tablet (20 sources) HMG-CoA Reductase Inhibitor Start: 2 take 1 tablet by mouth once daily Rosuvastatin 5 mg tablet Active 5 mg PO DAILY November 01, 2021 12:00am CHOLESTEROL Comment on above: Take 1 tablet by pat th once daily. Stairlift (6 sources) Start: 2 Stairlift Active 0 .Route .MEDSUPPLY 1 0 July 10, 2022 12:06pm Stairlift needed for Christian Es, Date of : 41, [place] Customer Number: [id number] Start: 07-10-2022 Stairlift Acti ve 0 .Route .MEDSUPPLY 1 July 10, 2022 12:06pm Stairlift needed for Tuula Suggs, Date of : 41, [place] Customer Number: [id number] Start: 07-10-2022 Stairlift Acti ve 0 .Route .MEDSUPPLY July 10, 2022 11:06am Stairlift needed for Tuula Suggs, Date of : 41, [place] Customer Number: [id number] sulfamethoxazole 800 mg / trimethoprim 160 mg oral tablet (1 source) Dihydrofolate Reductase Inhibitor Antibacterial, Sulfonamide Antimicrobial Start: 06-16-2024 End: 06-19-2024 take 1 tablet by mouth twice daily sulfamethoxazole-trimethoprim (BACTRIM DS) 800-160 mg per tablet Take 1 tablet by mouth two times a day for 3 days. 6 tablet 06/16/2024 06/19/2024 Active triamcinolone acetonide 1 mg/ml topical cream (6 sources) Corticosteroid Start: 03-07-2023 triamcinolone acetonide (KENALOG) 0.1 % cream 03/07/2023 Active Vit A-Vit C-Vit F-Ebuo-Jrpgqc (3 sources) Start: 05-23-2021 take 2 tablets by mouth once daily Vit A-Vit C-Vit L-Iuoo-Whxgcs Active 2 TABLET PO DAILY May 23, 2021 12:00am Vit A-Vit C-Vit R-Wbfw-Gltgnt (Eye Vitamin And Minerals) 7,160-113-100 axvf-cs-gczw Tablet (10 sources) Start: 05-23-2021 take 2 tablets by mouth once daily Vit A-Vit C-Vit U-Mzbj-Clotbv (Eye Vitamin And Minerals) 7,160-113-100 heqz-do-whwd Tablet Active 2 TABLET PO DAILY May 23, 2021 12:30pm Start: 05-23-2021 take 2 tablets by mo uth once daily Vit A-Vit C-Vit U-Tiuf-Qeycri (Eye Vitamin And Minerals) 7,160-113-100 loxk-gx-picu Tablet Active 2 TABLET PO DAILY May 22, 2021 11:00pm Start: 05-23-2021 take 2 tablets by mo uth once daily Vit A-Vit C-Vit S-Ertz-Ztaayj (Eye Vitamin And Minerals) 7,160-113-100 zprk-sc-tzly Tablet Active 2 TABLET PO DAILY May 23, 2021 12:00am Completed/Discontinued Medications Medication Drug Class(es) Dates Sig (Normalized) Sig (Original) acetaminophen 325 mg oral tablet (20 sources) Start: 10-22-2022 End: 10-30-2022 take 325-650 mg by mouth every six hours as needed acetaminophen (TYLENOL) 325 mg tablet Take 1-2 tablets by mouth every 6 hours as needed for pain. 0 10/22/2022 10/30/2022 Discontinued Start: 10-15-2018 End: 10-16-2018 take 2 tablets by mouth every eight hours Acetaminophen 500 MG tablet Discontinued 1000 mg PO EVERY 8 HOURS 14 0 October 15, 2018 12:00am October 28, 2018 12:00am October 16, 2018 4:44pm Start: 10-15-2018 End: 10-16-2018 take 1000 mg by mouth every eight hours Acetaminophen Discontinued 1000 MG PO EVERY 8 HOURS 14 October 15, 2018 12:00am October 16, 2018 4:44pm Start: 10-06-2018 End: 10-15-2018 take 1 tablet by mouth every four hours Acetaminophen 500 MG tablet Discontinued 500 mg PO Q4H October 06, 2018 12:00am October 15, 2018 8:57am PAIN Comment on above: Take 1-2 tablets by mouth every 6 hours as needed for pain. atropine sulfate 0.025 mg / diphenoxylate hydrochloride 2.5 mg oral tablet (15 sources) Anticholinergic, Cholinergic Muscarinic Antagonist, Antidiarrheal Start: 03-11-2023 End: 01-30-2024 diphenoxylate-atro pine (LOMOTIL) 2.5-0.025 mg per tablet Start: 08-13-2021 End: 11-11-2021 Diphenoxylate-Atropine (Lomo til) 2.5-0.025 mg tablet Discontinued 1 {tbl} PO AT BEDTIME as needed for diarrhea 90 90 0 August 13, 2021 1:00am November 10, 2021 12:00am November 11, 2021 12:04am balsalazide disodium 750 mg oral capsule (1 source) Aminosalicylate Start: 02-07-2016 End: 03-05-2022 take 3 capsules by mouth three times daily balsalazide (COLAZAL) 750 mg capsule Take 3 capsules by mouth three times daily. 100 capsule 0 02/07/2016 03/05/2022 Discontinued (Other) calcium carbonate 1250 mg / cholecalciferol 100 unt / vitamin k1 0.04 mg chewable tablet (19 sources) Vitamin D, Warfarin Reversal Agent, Vitamin K Start: 11-26-2022 End: 03-08-2024 Calcium-Vitamin D3-Vitamin K 500-100-40 mg-unit-mcg Tablet,Chewable Discontinued 1 {tbl} PO TWICE A DAY November 26, 2022 12:00am March 08, 2024 2:34pm SUPPLEMENT Start: 11-26-2022 take 1 tablet by pat th twice daily Calcium-Vitamin D3-Vitamin K Active 1 TABLET PO TWICE A DAY November 26, 2022 12:00am Start: 06-06-2011 End: 10-02-2022 take 1 tablet by mouth twice daily Calcium-Vitamin D3-Vitamin K 500-100-40 mg-unit-mcg chew Take 1 tablet by mouth. CHEW TAB BEFORE SWALLOWING twice daily. 0 06/06/2011 10/02/2022 Discontinued Comment on above: Take 1 tablet by pat th. CHEW TAB BEFORE SWALLOWING twice daily. cephalexin 500 mg oral capsule (2 sources) Cephalosporin Antibacterial Start: End: take 1 capsule by mouth twice daily cephALEXin (KEFLEX) 500 mg capsule Take 1 capsule by mouth two times a day for 7 days. 14 capsule 06/15/2024 06/16/2024 Discontinued (Changing Therapy/Dosage Form) cholecalciferol 0.125 mg oral tablet (5 sources) Vitamin D Start: End: take 1 tablet by mouth once daily Cholecalciferol (Vitamin D3) (Vitamin D3) 125 mcg (5,000 unit) Tablet Discontinued 125 ug PO DAILY November 26, 2022 12:00am March 08, 2024 2:34pm SUPPLEMENT Cholestyramine-Asparta me (Cholestyramine Light) 4 gram powder in packet (2 sources) Start: End: Cholestyramine-Asparta me (Cholestyramine Light) 4 gram powder in packet Discontinued 4 GM PO DAILY March 11, 2023 12:00am September 04, 2023 3:11pm administer w/meal; avoid other meds within 1hr before or 4-6hr after dose Start: 03-11-2023 Cholestyramine -Aspartame (Cholestyramine Light) 4 gram powder in packet Active 4 GM PO DAILY March 11, 2023 12:00am administer w/meal; avoid other meds within 1hr before or 4-6hr after dose desmopressin acetate 0.1 mg oral tablet (3 sources) Vasopressin Analog, Factor VIII Activator Start: 01-13-2023 End: 03-08-2024 take 1 tablet by mouth at bedtime Desmopressin (Ddavp) 0.1 mg tablet Discontinued 0.1 mg PO AT BEDTIME 17 01January 13, 2023 12:00am March 08, 2024 2:35pm estradiol 0.1 mg/ml vaginal cream (10 sources) Estrogen Start: 11-19-2022 End: 03-08-2024 Estradiol 0.01 % (0.1 mg/gram) cream Discontinued 1 NMA VAGINAL DAILY November 19, 2022 12:00am March 08, 2024 2:35pm HORMONE for 14 days Start: 11-19-2022 Estradiol Acti ve 1 APPFUL VAGINAL DAILY November 19, 2022 12:00am for 14 days Start: 11-18-2022 End: 01-30-2024 estradiol (ESTRACE) 0.01 % ( 0.1 mg/gram) vaginal cream INSERT 1 GRAM VAGINALLY NIGHTLY BEFORE BED FOR 2 WEEKS, THEN 1 GRAM VAGINALLY 3 TIMES A WEEK. 0 11/18/2022 01/30/2024 Discontinued Comment on above: INSERT 1 GRAM VAGINA LLY NIGHTLY BEFORE BED FOR 2 WEEKS, THEN 1 GRAM VAGINALLY 3 TIMES A WEEK. famotidine 20 mg oral tablet (14 sources) Histamine-2 Receptor Antagonist Start: 9 End: 9 take 1 tablet by mouth once daily Famotidine 20 MG tablet Discontinued 20 mg PO DAILY 0 October 15, 2018 12:00am November 13, 2018 12:00am October 16, 2018 4:44pm Take 1 tablet daily while taking aspirin and meloxicam for 4 weeks postoperatively Fiber (5 sources) Start: 3 End: 4 take 1 tablet by mouth twice daily Fiber Tablet Discontinued 1 {tbl} PO TWICE A DAY November 26, 2022 12:00am March 08, 2024 2:35pm SUPPLEMENT Start: 11-26-2022 take 1 tablet by pat th twice daily Fiber Active 1 TABLET PO TWICE A DAY November 26, 2022 12:00am vfuxzhcm-tcjn-doc3-C-charly-susi sw (OSTEO BI-FLEX TRIPLE STRENGTH) 750 mg-644 mg- 30 mg-1 mg tab (4 sources) take 1 tablet by mouth once daily elgmgsuv-eyqa-hsx6-C-charly-bosw (OSTEO BI-FLEX TRIPLE STRENGTH) 750 mg-644 mg- 30 mg-1 mg tab Take 1 tablet by mouth once daily. 0 Active Comment on above: Take 1 tablet by pat th once daily. iv contrast (will be provide d with radiology test) (1 source) S t a r t : 0 8 - 1 6 - 2 0 2 2 E n d : 0 9 - 0 6 - 2 0 2 2 inject 1 dose intravenously once iv contrast (will be provided with radiology test) Indications: Cerebral ventriculomegaly MRI Brain Inject, intravenously, once for 1 dose.No IV access, insert saline lock prior to beginning of sedation, infusion, injection of imaging exam.Discontinue saline lock post exam. If Pt. has a central line or IVAD, may access for administration according to line specific nursing protocol.Once exam is complete flush line and de-access according to line specific nursing protocol in the MR contrast administration guidelines link 1 Each 0 03/05/2022 03/26/2022 Discontinued (Course of therapy completed) Comment on above: MRI Brain Inject, in travenously, once for 1 dose.No IV access, insert saline lock prior to beginning of sedation, infusion, injection of imaging exam.Discontinue saline lock post exam. If Pt. has a central line or IVAD, may access for administration according to line specific nursing protocol.Once exam is complete flush line and de-access according to line specific nursing protocol in the MR contrast administration guidelines link meloxicam 7.5 mg oral tablet (20 sources) Nonstero idal Anti-inf lammator y Drug S t a r t : 0 5 - 0 9 - 2 0 2 3 E n d : 0 8 - 1 9 - 2 0 2 4 take 5 mg by mouth twice daily as needed for pain Meloxicam 7.5 mg tablet Discontinued 5 mg PO TWICE A DAY as needed for pain November 26, 2022 10:35am March 08, 2024 2:35pm Start: 11-26-2022 take 5 mg by mouth twice daily Meloxicam Active 5 MG PO TWICE A DAY November 26, 2022 10:35am Start: 10-30-2022 take 1 tablet by pat th once daily meloxicam (MOBIC) 7.5 mg tablet Indications: Cervical spondylosis without myelopathy , Neck pain , History of lumbar spinal fusion Take 1 tablet by mouth once daily. Take this directly following a meal 60 tablet 0 10/30/2022 Active Start: 06-19-2022 End: 11-26-2022 take 1 tablet by mouth twice daily as needed for pain Meloxicam 7.5 mg tablet Discontinued 7.5 mg PO TWICE A DAY as needed for pain 60 4 September 11, 2022 7:18pm November 26, 2022 10:35am Start: 06-07-2021 End: 10-22-2022 take 1 tablet by mouth once daily Meloxicam 7.5 mg tablet Discontinued 7.5 mg PO DAILY April 30, 2022 12:00am June 19, 2022 10:02am Comment on above: Take 1 tablet by pat once daily. Take this directly following a meal mesalamine 1200 mg delayed release oral tablet (14 sources) Aminosalicylate Start: 08-01-19 End: 09-25-19 take 2 tablets by mouth once daily Mesalamine 1.2 gram tablet,delayed release (DR/EC) Discontinued 2.4 g PO DAILY 112 56 0 August 01, 2021 1:00am September 25, 2021 1:00am September 24, 2021 10:07am Start: 08-01-2021 End: 09-24-2021 take 2.4 g by mouth once daily Mesalamine Discontinued 2.4 GM PO DAILY 112 56 August 01, 2021 1:00am September 24, 2021 10:07am miSOPROStol 0.2 mg oral tablet (1 source) Prostaglandin E1 Analog Start: 07-19-2022 End: 07-19-2022 miSOPROStol (CYTOTEC) 200 mcg tablet Use 1 tablet vaginally one time only for [address] 2 tablets vaginally the morning of the procedure 1 tablet 0 07/19/2022 07/19/2022 Comment on above: Use 1 tablet vaginal ly one time only for [address] 2 tablets vaginally the morning of the procedure MULTIVITAMIN WITH FOLIC ACID ORAL (8 sources) End: 10-30-2022 take 1 capsule by mouth once daily MULTIVITAMIN WITH FOLIC ACID ORAL Take 1 capsule by mouth once daily. 0 10/30/2022 Discontinued take 1 capsule by mouth once fela ly MULTIVITAMIN WITH FOLIC ACID ORAL Take 1 capsule by mouth once daily. 0 Suspended take 1 capsule by mouth once fela ly MULTIVITAMIN WITH FOLIC ACID ORAL Take 1 capsule by mouth once daily. 0 Active Comment on above: Take 1 capsule by mo ut once daily. naproxen sodium 220 mg oral tablet (1 source) Nonsteroidal Anti-inflammatory Drug Start: 06-07-2021 End: 06-07-2021 naproxen sodium (ALEVE) 220 mg ORAL tablet Take 220 mg by mouth as needed. 0 06/07/2021 06/07/2021 Discontinued (Course of therapy completed) 72 hr scopolamine 0.0139 mg/hr transdermal system (14 sources) Anticholinergic Start: 10-26-2014 End: 11-01-2014 Scopolamine Base 1.5 MG patch Discontinued 1.5 mg TD Every 3 Days 7 0 October 26, 2014 12:00am November 01, 2014 9:36am Stair lift (6 sources) Start: 07-10-2022 End: 07-10-2022 Stair lift Discontinued 0 .Route .MEDSUPPLY 1 0 July 10, 2022 1:00am July 10, 2022 12:10pm : [address] [place] Customer Number: [id number] Start: 07-10-2022 End: 07-10-2022 Stair lift Discontinued 0 .R oute .MEDSUPPLY July 10, 2022 1:00am July 10, 2022 12:10pm : [address] [place] Customer Number: [id number] Start: 07-10-2022 End: 07-10-2022 Stair lift Discontinued 0 .R oute .MEDSUPPLY July 10, 2022 12:00am July 10, 2022 11:10am : [address] [place] Customer Number: [id number] tamsulosin hydrochloride 0.4 mg oral capsule (20 sources) alpha-Adrenergic Clarke Start: 07-19-2022 End: 09-21-2024 take 1 capsule by mouth at bedtime Tamsulosin 0.4 mg capsule Discontinued 0.4 mg PO AT BEDTIME 30 1 April 10, 2024 2:44pm May 05, 2024 1:09pm Comment on above: Take 1 capsule by mo [facility] daily at bedtime. traMADol hydrochloride 50 mg oral tablet (20 sources) Opioid Agonist Start: 11-28-2022 End: 03-08-2024 take 1 tablet by mouth every six hours as needed for pain Tramadol 50 mg tablet Discontinued 50 mg PO EVERY 6 HOURS as needed for pain 10 0 November 28, 2022 12:00am March 08, 2024 2:36pm Start: 10-22-2018 End: 10-29-2018 take 50-100 mg by mouth every eight hours as needed for pain Tramadol 50 MG tablet Discontinued 50 - 100 mg PO EVERY 8 HOURS NEEDED as needed for Moderate Pain (4-5/10) 7 7 0 October 22, 2018 12:00am October 28, 2018 12:00am October 29, 2018 12:08am Start: 10-26-2014 End: 11-01-2014 take 2 tablets by mouth every six hours as needed for pain Tramadol 50 MG tablet Discontinued 100 mg PO EVERY 6 HOURS NEEDED as needed for PAIN 90 0 October 26, 2014 12:00am November 01, 2014 9:35am Start: 10-26-2014 End: 11-01-2014 take 100 mg by mouth every six hours as needed Tramadol Discontinued 100 MG PO EVERY 6 HOURS NEEDED 90 October 26, 2014 12:00am November 01, 2014 9:35am Turmeric extract (20 sources) Start: 11-26-2022 End: 03-08-2024 take 1 capsule by mouth once daily Turmeric 400 mg Capsule Discontinued 400 mg PO DAILY November 26, 2022 12:00am March 08, 2024 2:37pm SUPPLEMENT Start: 11-26-2022 take 400 mg by mouth once kwasi y Turmeric Active 400 MG PO DAILY November 26, 2022 12:00am Start: 07-05-2019 End: 11-01-2021 take 400 mg by mouth once daily Turmeric Discontinued 400 MG PO DAILY July 05, 2019 11:05am November 01, 2021 8:04am Start: 07-05-2019 take 400 mg by mouth once kwasi y Turmeric Active 400 MG PO DAILY July 05, 2019 11:05am Start: 07-05-2019 End: 11-01-2021 take 1 capsule by mouth once daily Turmeric 400 MG capsule Discontinued 400 mg PO DAILY July 05, 2019 1:00am November 01, 2021 8:04am Start: 07-05-2019 End: 11-01-2021 take 400 mg by mouth once daily Turmeric Discontinued 400 MG PO DAILY July 05, 2019 12:00am November 01, 2021 7:04am Start: 07-05-2019 End: 11-01-2021 take 400 mg by mouth once daily Turmeric Discontinued 400 MG PO DAILY July 05, 2019 1:00am November 01, 2021 8:04am Start: 10-06-2018 End: 10-15-2018 Turmeric-Turmeric Root Extra ct Discontinued 1 EACH PO TWICE A DAY October 06, 2018 2:13pm October 15, 2018 8:57am Start: 10-06-2018 End: 10-15-2018 take 1 capsule by mouth twice daily Turmeric-Turmeric Root Extract 1 EACH capsule Discontinued 1 NMA PO TWICE A DAY October 06, 2018 12:00am October 15, 2018 8:57am SUPPLEMENT Start: 10-06-2018 End: 10-15-2018 Turmeric-Turmeric Root Extra ct Discontinued 1 EACH PO TWICE A DAY October 05, 2018 11:00pm October 15, 2018 7:57am Start: 10-06-2018 End: 10-15-2018 Turmeric-Turmeric Root Extra ct Discontinued 1 EACH PO TWICE A DAY October 06, 2018 12:00am October 15, 2018 8:57am vit A-vit C-vit D-ekxb-ueatdk 7,160-113-100 umfp-ld-shfv tab (19 sources) End: 01-30-2024 take 2 tablets by mouth once daily vit A-vit C-vit Z-gnsp-uddmvx 7,160-113-100 penk-cw-gcop tab Take 2 tablets by mouth once daily. 0 01/30/2024 Discontinued take 2 tablets by mouth once fela ly vit A-vit C-vit Y-[place]-xeilxf 7,160-113-100 xpez-ik-usag tab Take 2 tablets by mouth once daily. 0 Suspended take 2 tablets by mouth once fela ly vit A-vit C-vit U-dczd-ofulny 7,160-113-100 xrdf-bj-whjz tab Take 2 tablets by mouth once daily. 0 Active Comment on above: Take 2 tablets by mo uth once daily. Vit A-Vit C-Vit K-Tice-Ykqqay 7,160-113-100 fsnx-ha-cdrh Tablet (1 source) Start: 05-23-20 21 End: 03-08-20 24 Vit A-Vit C-Vit Z-Ritd-Cehxfq 7,160-113-100 neyo-mn-xhic Tablet Discontinued 2 {tbl} PO DAILY May 23, 2021 12:00am March 08, 2024 2:37pm SUPPLEMENT vitamin b12 1 mg/ml injectable solution (1 source) Vitamin B12 Start: 11-02-19 End: 11-02-19 inject 1000 ug by intramuscular injection once cyanocobalamin (vitamin B-12) 1,000 mcg/mL injection solution Discontinued 1000 MCG IM ONCE 1 November 01, 2021 7:46am November 01, 2021 9:17am Problems Active Problems Problem Classification Problem Date Documented Date Episodic/Chronic Abdominal hernia (1 source) Diaphragmatic hernia without obstruction or gangrene; Translations: [Hiatal hernia] Onset: 11-27-19 25 Episodic Anxiety disorders (14 sources) Mixed anxiety and depressive disorder; Translations: [Anxiety disorder, unspecified] 06-09-2019 Chronic Benign neoplasm of uterus (1 source) Intramural leiomyoma of uterus; Translations: [Intramural leiomyoma of uterus] Episodic Biliary tract disease (12 sources) Biliary dyskinesia; Translations: [Other specified diseases of gallbladder] 06-20-2022 Episodic Disorders of lipid metabolism (20 sources) Hyperlipidemia; Translations: [Hyperlipidemia, unspecified] Onset: 08-28-19 23 Chronic E Codes: Place of occurrence (1 source) Unspecified place in unspecified non-institutional (private) residence as the place of occurrence of the external cause; Translations: [Fall at home, initial encounter] Onset: 06-27-20 22 Episodic Esophageal disorders (20 sources) Gastroesophageal reflux disease; Translations: [Gastro-esophageal reflux disease without esophagitis] Onset: 06-06-20 11 Chronic Genitourinary symptoms and ill-defined conditions (20 sources) Hematuria, unspecified; Translations: [Retention of urine, unspecified] Onset: 06-21-20 22 07-05-2022 Episodic Hemorrhoids (14 sources) Internal hemorrhoids; Translations: [Other hemorrhoids] 10-16-2018 Episodic Malaise and fatigue (14 sources) Asthenia; Translations: [Other malaise] 10-16-2018 Episodic Melanomas of skin (20 sources) Superficial spreading malignant melanoma of skin; Translations: [Malignant melanoma of skin, unspecified] Onset: 06-06-20 11 07-16-2021 Chronic Noninfectious gastroenteritis (20 sources) Eosinophilic gastroenteritis; 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] Onset: 02-07-20 16 Chronic Nonspecific chest pain (2 sources) Chest pain, unspecified; Translations: [Chest pain, unspecified type] Onset: 05-19-20 Episodic Osteoarthritis (15 sources) Osteoarthritis; Translations: [Unspecified osteoarthritis, unspecified site] 06-09-2019 Chronic Osteoporosis (20 sources) Osteoporosis; Translations: [Age-related osteoporosis without current pathological fracture] Onset: 06-06-20 11 06-06-2011 Chronic Other connective tissue disease (14 sources) History of total knee arthroplasty; Translations: [Presence of right artificial knee joint] 06-09-2019 Chronic Comment on above: Dr Mckeon 10/24/14 [facility] Other female genital disorders (1 source) Other specified conditions associated with female genital organs and menstrual cycle; Translations: [Endometrial mass] Onset: 06-27-20 Episodic Other female genital disorders (1 source) Polyp of corpus uteri; Translations: [Polyp of corpus uteri] Episodic Other female genital disorders (1 source) Polyp of corpus uteri; Translations: [Endometrial polyp] Onset: 09-05-19 23 Episodic Other fractures (14 sources) Compression fracture of lumbar spine; Translations: [Wedge compression fracture of unspecified lumbar vertebra, initial encounter for closed fracture] 06-09-2019 Episodic Other gastrointestinal disorders (8 sources) Alteration in bowel elimination; Translations: [Change in bowel habit] Episodic Other gastrointestinal disorders (6 sources) Altered bowel function; Translations: [Change in bowel habit] 06-09-2019 Episodic Other hematologic conditions (1 source) Other specified abnormalities of plasma proteins; Translations: [Elevated troponin] Onset: 06-27-20 Episodic Other hereditary and degenerative nervous system conditions (13 sources) Impaired cognition; Translations: [Mild cognitive impairment, so stated] 11-01-2021 Chronic Other hereditary and degenerative nervous system conditions (20 sources) Mild cognitive impairment, so stated; Translations: [Mild cognitive impairment, so stated] Chronic Other infections; including parasitic (14 sources) History of bacterial infection; Translations: [Personal history of other infectious and parasitic diseases] 05-22-2021 Episodic Other lower respiratory disease (1 source) Shortness of breath; Translations: [Shortness of breath] Onset: 03-26-20 Episodic Other nervous system disorders (14 sources) Sciatic neuropathy; Translations: [Lesion of sciatic nerve, unspecified lower limb] 06-09-2019 Chronic Other nervous system disorders (20 sources) Normal pressure hydrocephalus; Translations: [(Idiopathic) normal pressure hydrocephalus] Onset: 08-28-19 Chronic Other nervous system disorders (20 sources) (Idiopathic) normal pressure hydrocephalus; Translations: [Idiopathic normal pressure hydrocephalus (INPH)] Onset: 10-23-19 Chronic Other nervous system disorders (20 sources) Cerebral ventriculomegaly; Translations: [Other specified disorders of brain] Onset: 02-20-20 Chronic Other nervous system disorders (3 sources) Hydrocephalus; Translations: [Other hydrocephalus] Chronic Other nervous system disorders (20 sources) Ventriculoperitoneal shunt in situ; Translations: [Presence of cerebrospinal fluid drainage device] Onset: 11-14-19 Chronic Other nervous system disorders (3 sources) Presence of cerebrospinal fluid drainage device; Translations: [Presence of cerebrospinal fluid drainage device] Onset: 11-14-1911-19-2022 Chronic Other nervous system disorders (13 sources) Abnormal gait; Translations: [Unspecified abnormalities of gait and mobility] 11-01-2021 Episodic Other nervous system disorders (20 sources) Unspecified abnormalities of gait and mobility; Translations: [Abnormality of gait] Episodic Other nutritional; endocrine; and metabolic disorders (14 sources) Obesity; Translations: [Obesity, unspecified] 03-13-2022 Chronic Other nutritional; endocrine; and metabolic disorders (15 sources) Obesity, unspecified; Translations: [Obesity, unspecified] Onset: 07-01-20 Chronic Other nutritional; endocrine; and metabolic disorders (20 sources) Obese class I; Translations: [Obesity, unspecified] Onset: 06-24-2007-05-2022 Chronic Other screening for suspected conditions (not mental disorders or infectious disease) (3 sources) Computed tomography result abnormal; Translations: [Abnormal findings on diagnostic imaging of other specified body structures] Onset: 07-31-19 Chronic Other upper respiratory disease (20 sources) Seasonal allergy; Translations: [Other seasonal allergic rhinitis] Onset: 06-06-20 11 06-06-2011 Chronic Pulmonary heart disease (20 sources) H/O: pulmonary embolus; Translations: [Personal history of pulmonary embolism] Onset: 08-28-19 Episodic Residual codes; unclassified (20 sources) Obstructive sleep apnea syndrome; Translations: [Obstructive sleep apnea (adult) (pediatric)] Onset: 08-28-19 Chronic Residual codes; unclassified (1 source) Localized edema; Translations: [Bilateral lower extremity edema] Onset: 11-27-19 Episodic Rheumatoid arthritis and related disease (20 sources) Rheumatoid arthritis; Translations: [Rheumatoid arthritis, unspecified] Onset: 10-04-1906-09-2019 Chronic Spondylosis; intervertebral disc disorders; other back problems (15 sources) Lumbar spondylosis with myelopathy; Translations: [Other spondylosis with myelopathy, lumbar region] Onset: 06-23-2010-16-2018 Chronic Spondylosis; intervertebral disc disorders; other back problems (20 sources) Chronic back pain ; Translations: [Dorsalgia, unspecified] Onset: 06-06-20 Resolved : 08-17-19 Episodic Thyroid disorders (20 sources) Thyroid nodule; Translations: [Nontoxic single thyroid nodule] Onset: 02-20-2002-19-2022 Chronic Unclassified (14 sources) History of Clostridium difficile; Translations: [History of Clostridium difficile] 06-09-2019 Unclassified (1 source) bilateral leg swelling Onset: 07-12-20 Urinary tract infections (20 sources) Pyelonephritis; Translations: [Tubulo-interstitial nephritis, not specified as acute or chronic] Onset: 06-23-2006-27-2022 Episodic Viral infection (1 source) COVID-19; Translations: [COVID-19] Onset: 06-27-20 Past or Other Problems Problem Classification Problem Date Documented Date Episodic/Chronic Complication of device; implant or graft (20 sources) Loosening of musculoskeletal implant; Translations: [Other mechanical complication of other internal orthopedic devices, implants and grafts, initial encounter] Onset: 02-19-2022 02-19-2022 Episodic Conditions associated with dizziness or vertigo (2 sources) Dizziness and giddiness; Translations: [Dizziness] Onset: 06-12-2024 Episodic E Codes: Fall (20 sources) Unspecified fall, initial encounter; Translations: [Fall in home] Onset: 06-23-2022 06-27-2022 Episodic Intestinal infection (20 sources) Clostridium difficile colitis; Translations: [Enterocolitis due to Clostridium difficile, not specified as recurrent] Onset: 06-06-2011 07-16-2021 Episodic Other aftercare (20 sources) Follow-up status; Translations: [Encounter for other specified aftercare] Onset: 06-27-2022 07-05-2022 Episodic Other bone disease and musculoskeletal deformities (20 sources) Osteopenia; Translations: [Other specified disorders of bone density and structure, unspecified site] Onset: 06-06-2011 07-16-2021 Episodic Other connective tissue disease (6 sources) Recurrent falls ; Translations: [Repeated falls] Onset: 06-08-2021 Resolved: 08-17-2021 08-17-2021 Episodic Other connective tissue disease (6 sources) Weakness of back; Translations: [Other symptoms and signs involving the musculoskeletal system] Onset: 06-08-2021 Resolved: 08-17-2021 08-17-2021 Episodic Other ear and sense organ disorders (20 sources) Myringitis; Translations: [Unspecified myringitis, unspecified ear] Onset: 06-06-2011 07-16-2021 Episodic Other female genital disorders (20 sources) Lesion of endometrium; Translations: [Other specified conditions associated with female genital organs and menstrual cycle] Onset: 06-24-2022 07-05-2022 Episodic Other fractures (20 sources) Compression fracture ; Translations: [Compression fracture] Onset: 06-06-2011 07-16-2021 Episodic Other nervous system disorders (20 sources) Impairment of balance; Translations: [Other abnormalities of gait and mobility] Onset: 02-19-2022 02-19-2022 Episodic Other screening for suspected conditions (not mental disorders or infectious disease) (6 sources) Raised cardiac enzyme or marker; Translations: [Other specified abnormal findings of blood chemistry] Onset: 06-24-2022 Resolved: 07-05-2022 07-05-2022 Episodic Residual codes; unclassified (20 sources) FH: Cardiovascular disease; Translations: [Family history of ischemic heart disease and other diseases of the circulatory system] Onset: 03-05-2022 03-05-2022 Episodic Residual codes; unclassified (1 source) Other general symptoms and signs; Translations: [Feeling off-color] Onset: 09-09-2024 Episodic Respiratory failure; insufficiency; arrest (adult) (13 sources) Acute respiratory failure with hypoxia; Translations: [Acute hypoxemic respiratory failure] Onset: 06-24-2022 Resolved: 07-05-2022 06-27-2022 Episodic Skin and subcutaneous tissue infections (1 source) Cellulitis of unspecified part of limb; Translations: [Cellulitis of lower extremity, unspecified laterality] Onset: 05-19-2024 Episodic Superficial injury; contusion (1 source) Contusion of left front wall of thorax, initial encounter; Translations: [Contusion of left chest wall, initial encounter] Onset: 02-23-2024 Episodic Viral infection (6 sources) Disease caused by 2019-nCoV; Translations: [COVID-19] Onset: 06-20-2022 Resolved: 07-05-2022 07-05-2022 Episodic Results Test Name Value Interpretation Reference Range Facility Thyroid Stim Immunoglobon THY STIM IMMUNO <0.10 Normal 0.00-0.55 [facility] Comment on above: Order Comment: Order Date: 03/14/25 Order Info: [id number] - CMP Order Info: [id number] - LIPID Order Info: [id number] - T3F Order Info: [id number] - TSH Order Info: [id number] - T4F Result Comment: Perf ormed at: - [facility] [address] [id number] [employer]urb[employer] Operator: Lucio Khan MD, Phone: [phone] Performed By: #### L 501.8604, L506.1008, L503.0098 #### [facility] [address] [place], [address] Anion gap in Serum or Plasma Ordered By: Renan Fishman on 03-14-2025 Anion gap [Moles/Vol] 13 mmol/L 5- [facility] BUN/creatinine ratioOrdered By: Renan Fishman on 03-14-2025 Urea nitrogen/Creatinine [Mass ratio] 15.0 mg/mg 10- [facility] Bilirubin, totalOrdered By: Renan Fishman on 03-14-2025 Bilirubin [Mass/Vol] 0.19 mg/dL 0.00-1.30 [facility] CBC-Complete Blood Cnt No Di ffon 03-14-2025 Erythrocyte distribution width (RBC) [Ratio] 15.4 % High 11.6-14.6 [facility] Comment on above: Order Comment: Order Date: 03/14/25 Order Info: [id number] - CBC Performed By: #### L 500.4050, L506.0400, L3400.4700, L500.4100, L501.9520, L501.72309, L100.0500 #### [facility] [address] [place], [place], [id number] Hematocrit (Bld) [Volume fraction] 41.0 % Normal 37-47 [facility] Comment on above: Order Comment: Order Date: 03/14/25 Order Info: [id number] - CBC Performed By: #### L 500.4050, L506.0400, L3400.4700, L500.4100, L501.9520, L501.87966, L100.0500 #### [facility] [address] [place], [place], [id number] Hemoglobin (Bld) [Mass/Vol] 13.4 g/dL Normal 12.0-15.0 [facility] Comment on above: Order Comment: Order Date: 03/14/25 Order Info: [id number] - CBC Performed By: #### L 500.4050, L506.0400, L3400.4700, L500.4100, L501.9520, L501.07558, L100.0500 #### [facility] [address] [place], [address] MCH (RBC) [Entitic mass] 28.8 pg Normal 27.0-32.0 [facility] Comment on above: Order Comment: Order Date: 03/14/25 Order Info: [id number] - CBC Performed By: #### L 500.4050, L506.0400, L3400.4700, L500.4100, L501.9520, L501.74974, L100.0500 #### [facility] [address] [place], [address] MCHC (RBC) [Mass/Vol] 32.7 g/dL Normal 32-36 [facility] Comment on above: Order Comment: Order Date: 03/14/25 Order Info: [id number] - CBC Performed By: #### L 500.4050, L506.0400, L3400.4700, L500.4100, L501.9520, L501.69539, L100.0500 #### [facility] [address] [place], [address] MCV (RBC) [Entitic vol] 88.2 fL Normal 81-99 [facility] Comment on above: Order Comment: Order Date: 03/14/25 Order Info: [id number] - CBC Performed By: #### L 500.4050, L506.0400, L3400.4700, L500.4100, L501.9520, L501.70538, L100.0500 #### [facility] [address] [place], [address] Platelet mean volume (Bld) [Entitic vol] 10.4 fL Normal 6.2-12.0 [facility] Comment on above: Order Comment: Order Date: 03/14/25 Order Info: [id number] - CBC Performed By: #### L 500.4050, L506.0400, L3400.4700, L500.4100, L501.9520, L501.83430, L100.0500 #### [facility] [address] [place], [address] Platelets (Bld) [#/Vol] 204 10*3/uL Normal 150-450 [facility] Comment on above: Order Comment: Order Date: 03/14/25 Order Info: [id number] - CBC Performed By: #### L 500.4050, L506.0400, L3400.4700, L500.4100, L501.9520, L501.19400, L100.0500 #### [facility] [address] [place], [address] RBC (Bld) [#/Vol] 4.65 10*6/uL Normal 4.2-5.4 [facility] Comment on above: Order Comment: Order Date: 03/14/25 Order Info: [id number] - CBC Performed By: #### L 500.4050, L506.0400, L3400.4700, L500.4100, L501.9520, L501.99589, L100.0500 #### [facility] [address] [place], [address] RDW SD 49.7 fl High 35.1-43.9 [facility] Comment on above: Order Comment: Order Date: 03/14/25 Order Info: [id number] - CBC Performed By: #### L 500.4050, L506.0400, L3400.4700, L500.4100, L501.9520, L501.88958, L100.0500 #### [facility] [address] [place], [address] WBC (Bld) [#/Vol] 5.7 10*3/uL Normal 4.4-11.0 [facility] Comment on above: Order Comment: Order Date: 03/14/25 Order Info: [id number] - CBC Performed By: #### L 500.4050, L506.0400, L3400.4700, L500.4100, L501.9520, L501.18730, L100.0500 #### [facility] [address] [place], [place], [id number] Calculated very low density lipoprotein (VLDL) cholesterol measurementOrdered By: Renan Fishman on 03-14-2025 Calculated very low density lipoprotein (VLDL) cholesterol measurement 52 mg/dL High 5-40 [facility] Carbon dioxide, total [Moles /volume] in Central venous bloodOrdered By: Renan Fishman on 03-14-2025 CO2 [Moles/Vol] 24.0 mmol/L 21.0-32.0 [facility] Chloride assayOrdered By: Romelia Fishman on 03-14-2025 Chloride [Moles/Vol] 105 mmol/L 98-108 [facility] Comprehensive Metabolic Prof ilon 03-14-2025 Albumin [Mass/Vol] 3.8 g/dL Normal 3.4-4.8 [facility] Comment on above: Order Comment: Order Date: 03/14/25 Order Info: 0786-1 - CMP Order Info: [id number] - LIPID Order Info: 3050-0 - T3F Order Info: 3 - TSH Order Info: 3024-01 - T4F Performed By: #### L 500.4050, L506.0400, L3400.4700, L500.4100, L501.9520, L501.43934, L100.0500 #### [facility] [address] [place], [place], [id number] Albumin/Globulin [Mass ratio] 1.3 {ratio} Normal 0.9-2.4 [facility] Comment on above: Order Comment: Order Date: 03/14/25 Order Info: 0786-1 - CMP Order Info: [id number] - LIPID Order Info: 3051-0 - T3F Order Info: [id number] - TSH Order Info: 30247 - T4F Performed By: #### L 500.4050, L506.0400, L3400.4700, L500.4100, L501.9520, L501.47718, L100.0500 #### [facility] [address] [place], [place], [id number] ALK PHOS 92 U/L Normal 35-104 [facility] Comment on above: Order Comment: Order Date: 03/14/25 Order Info: 86-1 - CMP Order Info: [id number] - LIPID Order Info: 3051-0 - T3F Order Info: 3016-3 - TSH Order Info: 3024-7 - T4F Performed By: #### L 500.4050, L506.0400, L3400.4700, L500.4100, L501.9520, L501.16310, L100.0500 #### [facility] [address] [place], [place], [id number] ALT [Catalytic activity/Vol] 17 U/L Normal <=34 [facility] Comment on above: Order Comment: Order Date: 03/14/25 Order Info: 785-1 - CMP Order Info: [id number] - LIPID Order Info: 3051-0 - T3F Order Info: 3016-3 - TSH Order Info: 302-7 - T4F Performed By: #### L 500.4050, L506.0400, L3400.4700, L500.4100, L501.9520, L501.93099, L100.0500 #### [facility] [address] [place], [place], [address] AST [Catalytic activity/Vol] 21 U/L Normal <=31 [facility] Comment on above: Order Comment: Order Date: 03/14/25 Order Info: 86-1 - CMP Order Info: [id number] - LIPID Order Info: 3051-0 - T3F Order Info: 3016-3 - TSH Order Info: 3024-7 - T4F Performed By: #### L 500.4050, L506.0400, L3400.4700, L500.4100, L501.9520, L501.18277, L100.0500 #### [facility] [address] [place], [address] Bilirubin [Mass/Vol] 0.19 mg/dL Normal 0.00-1.30 [facility] Comment on above: Order Comment: Order Date: 03/14/25 Order Info: 86-1 - CMP Order Info: [id number] - LIPID Order Info: 3051-0 - T3F Order Info: 3016-3 - TSH Order Info: 3024-7 - T4F Performed By: #### L 500.4050, L506.0400, L3400.4700, L500.4100, L501.9520, L501.33677, L100.0500 #### [facility] [address] [place], [place], [id number] [phone] BUN/CRE 15.0 RATIO Normal 10-20 [facility] Comment on above: Order Comment: Order Date: 03/14/25 Order Info: 785-1 - CMP Order Info: [id number] - LIPID Order Info: 3051-0 - T3F Order Info: 3016-3 - TSH Order Info: 3024-7 - T4F Performed By: #### L 500.4050, L506.0400, L3400.4700, L500.4100, L501.9520, L501.82120, L100.0500 #### [facility] [address] [place], [address] Calcium [Mass/Vol] 9.4 mg/dL Normal 7.6-11.0 [facility] Comment on above: Order Comment: Order Date: 03/14/25 Order Info: 0786-1 - CMP Order Info: [id number] - LIPID Order Info: 3051-0 - T3F Order Info: 3016-3 - TSH Order Info: 3024-7 - T4F Performed By: #### L 500.4050, L506.0400, L3400.4700, L500.4100, L501.9520, L501.17271, L100.0500 #### [facility] [address] [place], [address] Chloride [Moles/Vol] 105 mmol/L Normal 98-108 [facility] Comment on above: Order Comment: Order Date: 03/14/25 Order Info: 86-1 - CMP Order Info: [id number] - LIPID Order Info: 3051-0 - T3F Order Info: 3016-3 - TSH Order Info: 3024-7 - T4F Performed By: #### L 500.4050, L506.0400, L3400.4700, L500.4100, L501.9520, L501.90101, L100.0500 #### [facility] [address] [place], [place], [id number] CO2 [Moles/Vol] 24.0 mmol/L Normal 21.0-32.0 [facility] Comment on above: Order Comment: Order Date: 03/14/25 Order Info: 785- - CMP Order Info: [id number] - LIPID Order Info: 3051-0 - T3F Order Info: 3016-3 - TSH Order Info: 3024-7 - T4F Performed By: #### L 500.4050, L506.0400, L3400.4700, L500.4100, L501.9520, L501.51295, L100.0500 #### [facility] [address] [place], [place], [id number] [phone] Creatinine [Mass/Vol] 0.94 mg/dL Normal 0.70-1.20 [facility] Comment on above: Order Comment: Order Date: 03/14/25 Order Info: 86-1 - CMP Order Info: 22481-2 - LIPID Order Info: 3051-0 - T3F Order Info: 3016-3 - TSH Order Info: 3024-7 - T4F Performed By: #### L 500.4050, L506.0400, L3400.4700, L500.4100, L501.9520, L501.52134, L100.0500 #### [facility] [address] [place], [place], [id number] GAP 13 Normal 5-15 [facility] Comment on above: Order Comment: Order Date: 03/14/25 Order Info: 0786-1 - CMP Order Info: [id number] - LIPID Order Info: 3051-0 - T3F Order Info: 3 - TSH Order Info: 7 - T4F Performed By: #### L 500.4050, L506.0400, L3400.4700, L500.4100, L501.9520, L501.12128, L100.0500 #### [facility] [address] [place], [place], [id number] GFR/1.73 sq M.predicted among non-blacks MDRD (S/P/Bld) [Vol rate/Area] 61 mL/min/{1.73_m2} Normal >60 [facility] Comment on above: Order Comment: Order Date: 03/14/25 Order Info: 0786 - CMP Order Info: - LIPID Order Info: 0 - T3F Order Info: 3015-09 - TSH Order Info: 3024-01 - T4F Result Comment: mL/m in/1.73m2 CKD-EPI Creatinine Equation (2020) Performed By: #### L 500.4050, L506.0400, L3400.4700, L500.4100, L501.9520, L501.88405, L100.0500 #### [facility] [address] [place], [address] Globulin (S) [Mass/Vol] 3.0 g/dL Normal 2.2-4.2 [facility] Comment on above: Order Comment: Order Date: 03/14/25 Order Info: 0786- - CMP Order Info: [id number] - LIPID Order Info: 3051-0 - T3F Order Info: 3 - TSH Order Info: 3027 - T4F Performed By: #### L 500.4050, L506.0400, L3400.4700, L500.4100, L501.9520, L501.77081, L100.0500 #### [facility] [address] [place], [address] Glucose [Mass/Vol] 93 mg/dL Normal 70-99 [facility] Comment on above: Order Comment: Order Date: 03/14/25 Order Info: 86-1 - CMP Order Info: [id number] - LIPID Order Info: 3051-0 - T3F Order Info: 301-3 - TSH Order Info: 3024-7 - T4F Performed By: #### L 500.4050, L506.0400, L3400.4700, L500.4100, L501.9520, L501.28133, L100.0500 #### [facility] [address] [place], [address] Potassium [Moles/Vol] 3.9 mmol/L Normal 3.3-5.1 [facility] Comment on above: Order Comment: Order Date: 03/14/25 Order Info: 785-1 - CMP Order Info: [id number] - LIPID Order Info: 3051-0 - T3F Order Info: 3016-3 - TSH Order Info: 3024-7 - T4F Result Comment: Hemo lysis present, Results??could be affected. ?? Performed By: #### L 500.4050, L506.0400, L3400.4700, L500.4100, L501.9520, L501.84041, L100.0500 #### [facility] [address] [place], [address] Sodium [Moles/Vol] 142 mmol/L Normal 133-145 [facility] Comment on above: Order Comment: Order Date: 03/14/25 Order Info: 86-1 - CMP Order Info: [id number] - LIPID Order Info: 3051-0 - T3F Order Info: 3016-3 - TSH Order Info: 3024-7 - T4F Performed By: #### L 500.4050, L506.0400, L3400.4700, L500.4100, L501.9520, L501.94718, L100.0500 #### [facility] [address] [place], [place], [id number] T PROT 6.8 g/dL Normal 5.9-8.4 [facility] Comment on above: Order Comment: Order Date: 03/14/25 Order Info: 0786- - CMP Order Info: [id number] - LIPID Order Info: 3051-0 - T3F Order Info: 3 - TSH Order Info: 7 - T4F Performed By: #### L 500.4050, L506.0400, L3400.4700, L500.4100, L501.9520, L501.60590, L100.0500 #### [facility] [address] [place], [address] Urea nitrogen [Mass/Vol] 14 mg/dL Normal 4-19 [facility] Comment on above: Order Comment: Order Date: 03/14/25 Order Info: 0786 - CMP Order Info: - LIPID Order Info: 305-0 - T3F Order Info: 3 - TSH Order Info: 7 - T4F Performed By: #### L 500.4050, L506.0400, L3400.4700, L500.4100, L501.9520, L501.95243, L100.0500 #### [facility] [address] [place], [place], [address] Erythrocyte distribution wid th ratioOrdered By: Renan Fishman on 03-14-2025 Erythrocyte distribution width (RBC) [Ratio] 15.4 % High 11.6-14.6 [facility] Erythrocyte distribution wid th standard deviationOrdered By: Renan Fishman on 03-14-2025 Erythrocyte distribution width (RBC) [Ratio] 49.7 fl High 35.1-43.9 [facility] Free T3on 03-14-2025 Free T3 [Mass/Vol] 2.2 pg/mL Normal 2.18-3.98 [facility] Comment on above: Order Comment: Order Date: 03/14/25 Order Info: 0786-1 - CMP Order Info: [id number] - LIPID Order Info: 3051-0 - T3F Order Info: 3015-3 - TSH Order Info: 7 - T4F Performed By: #### L 500.4050, L506.0400, L3400.4700, L500.4100, L501.9520, L501.11492, L100.0500 #### [facility] [address] [place], [place], [id number] Free Z5Gzeytpa By: Renan urena on 03-14-2025 Free T3 [Mass/Vol] 2.2 pg/mL 2.18-3.98 [facility] Glomerular filtration rate ( GFR) estimation/1.73 sq m using serum, plasma, or whole bOrdered By: Renan Fishman on 03-14-2025 GFR/1.73 sq M.predicted among non-blacks MDRD (S/P/Bld) [Vol rate/Area] 61 mL/min/{1.73_m2} >60 [facility] Comment on above: mL/min/1.73m2 CKD-EP I Creatinine Equation (2020) Hematocrit Auto (Bld) [Volum e fraction]Ordered By: Renan Fishman on 03-14-2025 Hematocrit (Bld) [Volume fraction] 41.0 % 37-47 [facility] Hemoglobin measurementOrdere d By: Renan Fishman on 03-14-2025 Hemoglobin (Bld) [Mass/Vol] 13.4 g/dL 12.0-15.0 [facility] L501.4021on 03-14-2025 Trop T High Sen 21 ng/L High <=14 [facility] Comment on above: Order Comment: Order Date: 03/14/25 Order Info: 0786-1 - CMP Order Info: [id number] - LIPID Order Info: 3051-0 - T3F Order Info: 3 - TSH Order Info: 3024-01 - T4F Performed By: #### L 501.4021, L506.1001, L503.7505 #### [facility] [address] [place], [place], [address] LDL calc ser/plasOrdered By: Renan Fishman on 03-14-2025 Cholesterol in LDL [Mass/Vol] 131 mg/dL [facility] Comment on above: Drgpodirxy=447-494 m g/dL & Higher Lqmi=607 mg/dL or greaterFriedwald Equation for LDL-C Laboratory - Chemistry and C hemistry - challengeOrdered By: Renan Fishman on 03-14-2025 AST [Catalytic activity/Vol] 21 U/L <32 [facility] Lipid Profileon 03-14-2025 CHOL:HDL 4.34 Normal [facility] Comment on above: Order Comment: Order Date: 03/14/25 Order Info: 0786-1 - CMP Order Info: [id number] - LIPID Order Info: 0 - T3F Order Info: 3 - TSH Order Info: 3024-01 T4F Performed By: #### L 500.4050, L506.0400, L3400.4700, L500.4100, L501.9520, L501.77605, L100.0500 #### [facility] [address] [place], [place], [address] Cholesterol [Mass/Vol] 238 mg/dL High <=200 [facility] Comment on above: Order Comment: Order Date: 03/14/25 Order Info: 0786-1 - CMP Order Info: [id number] - LIPID Order Info: 3051-0 - T3F Order Info: 6-3 - TSH Order Info: 3027 - T4F Result Comment: Chol esterol level, Desirable <200 mg/dL Borderline high cholesterol 200-239 mg/dL High cholesterol >=240 mg/dL Recommendations of the NCEP Adult Treatment Panel for the following risk-cutoff thresholds for the [place] population. Performed By: #### L 500.4050, L506.0400, L3400.4700, L500.4100, L501.9520, L501.27574, L100.0500 #### [facility] [address] [place], [address] Cholesterol in HDL [Mass/Vol] 55 mg/dL Normal [facility] Comment on above: Order Comment: Order Date: 03/14/25 Order Info: 0786-1 - CMP Order Info: [id number] - LIPID Order Info: 0 - T3F Order Info: 3015-09 - TSH Order Info: 3024-01 T4 Result Comment: Xuan onal Cholesterol Education Program (NCEP) guidelines: <40 mg/dL: Low HDL-cholesterol (major risk factor for CHD) >= 60 mg/dL: High HDL-cholesterol (negative risk factor for CHD) HDL-cholesterol is affected by a number of factors, e.g. smoking, exercise, hormones, sex and age. Performed By: #### L 500.4050, L506.0400, L3400.4700, L500.4100, L501.9520, L501.03190, L100.0500 #### [facility] [address] [place], [address] Cholesterol in LDL [Mass/Vol] 131 mg/dL Normal [facility] Comment on above: Order Comment: Order Date: 03/14/25 Order Info: 0786-1 - CMP Order Info: [id number] - LIPID Order Info: 0 - T3F Order Info: 3015-09 - TSH Order Info: 3024-01 T4F Result Comment: Bord zdrmnc=178-343 mg/dL Higher Iyfa=405 mg/dL or greater Friedwald Equation for LDL-C Performed By: #### L 500.4050, L506.0400, L3400.4700, L500.4100, L501.9520, L501.56436, L100.0500 #### [facility] [address] [place], [address] Cholesterol in VLDL [Mass/Vol] 52 mg/dL High 5-40 [facility] Comment on above: Order Comment: Order Date: 03/14/25 Order Info: 0786- - CMP Order Info: [id number] - LIPID Order Info: 3050-0 - T3F Order Info: 3015-09 - TSH Order Info: 3024-01 T4F Performed By: #### L 500.4050, L506.0400, L3400.4700, L500.4100, L501.9520, L501.05719, L100.0500 #### [facility] [address] [place], [place], [address] Triglyceride [Mass/Vol] 262 mg/dL High [facility] Comment on above: Order Comment: Order Date: 03/14/25 Order Info: 0786 - CMP Order Info: [id number] - LIPID Order Info: 0 - T3F Order Info: 3015-09 - TSH Order Info: 3024-01 T4F Result Comment: The drugs N-Acetylcysteine and Metamizole may falsely depress this assay. Normal range: <150 mg/dL Borderline High: 150-199 mg/dL High: 200-499 mg/dL Very High: >500 mg/dL Performed By: #### L 500.4050, L506.0400, L3400.4700, L500.4100, L501.9520, L501.40077, L100.0500 #### [facility] [address] [place], [place], [address] MCV (mean corpuscular volume ) determinationOrdered By: Renan Fishman on 03-14-2025 MCV (RBC) [Entitic vol] 88.2 fL 81-99 [facility] Mean corpuscular hemoglobin (MCH) determinationOrdered By: Renan Fishman on 03-14-2025 MCH (RBC) [Entitic mass] 28.8 pg 27.0-32.0 [facility] Mean corpuscular hemoglobin concentration (MCHC) determinationOrdered By: Renan Fishman on 03-14-2025 MCHC (RBC) [Mass/Vol] 32.7 g/dL 32-36 [facility] Mean platelet volume determi nationOrdered By: Renan Fishman on 03-14-2025 Platelet mean volume (Bld) [Entitic vol] 10.4 fL 6.2-12.0 [facility] Natriuretic peptide.B prohor chung N-Terminal [Mass/volume] in Serum or PlasmaOrdered By: Renan Fishman on 03-14-2025 Natriuretic peptide.B prohormone N-Terminal [Mass/Vol] 103 pg/mL <1800 [facility] Comment on above: Heart Failure Unlike ly: < 300 pg/mLHeart Failure Likely< 50 Years: > 450 pg/mL50-75 Years: > 900 pg/mL>75 Years: > 1800 pg/mL Platelet countOrdered By: Romelia Fishman on 03-14-2025 Platelets (Bld) [#/Vol] 204 10*3/uL 150-450 [facility] Potassium measurement (mass/ volume)Ordered By: Renan Fishman on 03-14-2025 Potassium (Unsp spec) [Mass/Vol] 3.9 mmol/L 3.3-5.1 [facility] Comment on above: Hemolysis present, R esults could be affected. Pro- Brain NATRIURETIC PEPTI Jameel 03-14-2025 Natriuretic peptide B (Bld) [Mass/Vol] 103 pg/mL Normal <=1800 [facility] Comment on above: Order Comment: Order Date: 03/14/25 Order Info: 0786-1 - CMP Order Info: [id number] - LIPID Order Info: 3051-0 - T3F Order Info: 3016-3 - TSH Order Info: 3024-7 - T4F Result Comment: Hear t Failure Unlikely: < 300 pg/mL Heart Failure Likely < 50 Years: > 450 pg/mL 50-75 Years: > 900 pg/mL >75 Years: > 1800 pg/mL Performed By: #### L 501.4021, L506.1001, L503.7505 #### [facility] [address] [place], [address] RBC Auto (Bld) [#/Vol]Ordere d By: Renan Fishman on 03-14-2025 RBC (Bld) [#/Vol] 4.65 10*6/uL 4.2-5.4 [facility] Screening total cholesterol/ high density lipoprotein (HDL) cholesterol ratioOrdered By: Renan Fishman on 03-14-2025 Cholesterol.total/Choles terol in HDL [Mass ratio] 4.34 {ratio} [facility] Serum creatinine measurement (mass/volume)Ordered By: Renan Fishman on 03-14-2025 Creatinine [Mass/Vol] 0.94 mg/dL 0.70-1.20 [facility] Serum globulin measurementOr dered By: Renan Fishman on 03-14-2025 Globulin (S) [Mass/Vol] 3.0 g/dL 2.2-4.2 [facility] Serum glucose measurement (m ass/volume)Ordered By: Renan Fishman on 03-14-2025 Glucose [Mass/Vol] 93 mg/dL 70-99 [facility] Serum or plasma alanine pina otransferase (ALT) measurementOrdered By: Renan Fishman on 03-14-2025 ALT [Catalytic activity/Vol] 17 U/L <35 [facility] Serum or plasma albumin ana laura urement (mass/volume)Ordered By: Renan Fishman on 03-14-2025 Albumin [Mass/Vol] 3.8 g/dL 3.4-4.8 [facility] Serum or plasma albumin/glob ulin mass ratioOrdered By: Renan Fishman on 03-14-2025 Albumin/Globulin [Mass ratio] 1.3 {ratio} 0.9-2.4 [facility] Serum or plasma alkaline debora sphatase measurementOrdered By: Renan Fishman on 03-14-2025 ALP [Catalytic activity/Vol] 92 U/L 35-104 [facility] Serum or plasma calcium ana laura urement (mass/volume)Ordered By: Renan Fishman on 03-14-2025 Calcium [Mass/Vol] 9.4 mg/dL 7.6-11.0 [facility] Serum or plasma cholesterol in HDL measurement (mass/volume)Ordered By: Renan Fishman on 03-14-2025 Cholesterol in HDL [Mass/Vol] 55 mg/dL >40 [facility] Comment on above: National Cholesterol Education Program (NCEP) guidelines:<40 mg/dL: Low HDL-cholesterol (major risk factor for CHD)>= 60 mg/dL: High HDL-cholesterol (negative risk factor for CHD)HDL-cholesterol is affected by a number of factors, e.g. smoking, exercise, hormones, sex and age. Serum or plasma cholesterol measurement (mass/volume)Ordered By: Renan Fishman on 03-14-2025 Cholesterol [Mass/Vol] 238 mg/dL High <201 [facility] Comment on above: Cholesterol level, D esirable <200 mg/dLBorderline high cholesterol 200-239 mg/dLHigh cholesterol >=240 mg/dLRecommendations of the NCEP Adult Treatment Panel for the following risk-cutoff thresholds for the [place] population. Serum or plasma urea nitroge n measurement (mass/volume)Ordered By: Renan Fishman on 03-14-2025 Urea nitrogen [Mass/Vol] 14 mg/dL 4-19 [facility] Sodium levelOrdered By: Cintia Fishman on 03-14-2025 Sodium [Moles/Vol] 142 mmol/L 133-145 [facility] T4 Free Directon 03-14-2025 T4 FREE DIRECT 1.00 ng/dL Normal 0.76-1.46 [facility] Comment on above: Order Comment: Order Date: 03/14/25 Order Info: 0786-1 - CMP Order Info: [id number] - LIPID Order Info: 3051-0 - T3F Order Info: 3016-3 - TSH Order Info: 3024-7 - T4F Performed By: #### L 500.4050, L506.0400, L3400.4700, L500.4100, L501.9520, L501.50061, L100.0500 #### [facility] [address] [place], [address] T4 freeOrdered By: Renan urena on 03-14-2025 Free T4 [Mass/Vol] 1.00 ng/dL 0.76-1.46 [facility] TSH DL <= 0.005 mIU/L QnOrde red By: Renan Fishman on 03-14-2025 TSH Qn 2.530 uIU/mL 0.300-4.200 [facility] Thyroid Stim Hormone (TSH)on 03-14-2025 TSH 2.530 uIU/mL Normal 0.300-4.200 [facility] Comment on above: Order Comment: Order Date: 03/14/25 Order Info: 0786-1 - CMP Order Info: [id number] - LIPID Order Info: 3051-0 - T3F Order Info: 3016-3 - TSH Order Info: 3024-7 - T4F Performed By: #### L 500.4050, L506.0400, L3400.4700, L500.4100, L501.9520, L501.01634, L100.0500 #### [facility] [address] [place], [address] Thyroid stimulating immunogl obulins detectionOrdered By: Renan Fishman on 03-14-2025 Thyroid stimulating immunoglobulins Ql (S) <0.10 IU/L 0.00-0.55 [facility] Comment on above: Performed at: [address] [id number] Director: Lucio Khan MD, Phone: [phone] Total proteinOrdered By: Charlette Fishman on 03-14-2025 Protein [Mass/Vol] 6.8 g/dL 5.9-8.4 [facility] Triglycerides measurementOrd ered By: Renan Fishman on 03-14-2025 Triglyceride [Mass/Vol] 262 mg/dL High <199 [facility] Comment on above: The drugs N-Acetylcy steine and Metamizole may falsely depress this assay. Normal range: <150 mg/dLBorderline High: 150-199 mg/dLHigh: 200-499 mg/dLVery High: >500 mg/dL Troponin T.cardiac [Mass/vol ume] in Serum or Plasma by High sensitivity methodOrdered By: Renan Fishman on 03-14-2025 Troponin T.cardiac High sensitivity method [Mass/Vol] 21 ng/L High <14 [facility] Vitamin D,25 Hydroxyon 03-14 Vitamin D 25-OH 54.2 ng/mL Normal 30-100 [facility] Comment on above: Order Comment: Order Date: 03/14/25 Order Info: 0786-1 - CMP Order Info: [id number] - LIPID Order Info: 3051-0 - T3F Order Info: 3016-3 - TSH Order Info: 3024-7 - T4F Result Comment: Amina min D Status Deficiency: <20 ng/mL (50nmol/L) Insufficiency: 20-30 ng/mL (50-75 nmol/L) Sufficiency: 30-100 ng/mL (75-250 nmol/L) Toxicity: >100 ng/mL (>250 nmol/L) Performed By: #### L 501.4021, L506.1001, L503.7505 #### [facility] [address] [place], [address] White blood cell (WBC) count Ordered By: Renan Fishman on 03-14-2025 WBC (Bld) [#/Vol] 5.7 10*3/uL 4.4-11.0 [facility] CBC panel Auto (Bld)on 11-26 Erythrocyte distribution width (RBC) [Ratio] 15.3 % High 11.5-15.0 [facility] Comment on above: Order Comment: Fredy dowd Type: BLOOD SPECIMENOrdering Facility: [facility] Address: [address] [place] [address] Performed By: #### 5 8410-2 ####[facility] [id number] [place] [address] [place] [facility] Hematocrit (Bld) [Volume fraction] 39.5 % Normal 36.0-46.0 [facility] Comment on above: Order Comment: Speci men Type: BLOOD SPECIMENOrdering Facility: [facility] Address: [address] [place] [address] Performed By: #### 5 8410-2 ####[facility] LABCLIA [id number] [place] [address] [place] Hemoglobin (Bld) [Mass/Vol] 12.7 g/dL Normal 11.5-15.5 [facility] Comment on above: Order Comment: Speci men Type: BLOOD SPECIMENOrdering Facility: [facility] Address: [address] [place] [address] Performed By: #### 5 8410-2 ####[facility] LAB[facility] [id number] [place] [address] [facility] MCH (RBC) [Entitic mass] 28.7 pg Normal 26.0-34.0 [facility] Comment on above: Order Comment: Speci men Type: BLOOD SPECIMENOrdering Facility: [facility] Address: [address] [place] [address] Performed By: #### 5 8410-2 ####[facility] LABCLIA [id number] [place] [address] [facility] MCHC (RBC) [Mass/Vol] 32.2 g/dL Normal 30.5-36.0 [facility] Comment on above: Order Comment: Speci men Type: BLOOD SPECIMENOrdering Facility: [facility] Address: [address] [place] [address] Performed By: #### 5 8410-2 ####[facility] LABCLIA [id number] [place] [address] [facility] MCV (RBC) [Entitic vol] 89.4 fL Normal 80.0-100.0 [facility] Comment on above: Order Comment: Speci men Type: BLOOD SPECIMENOrdering Facility: [facility] Address: [address] [place] [address] Performed By: #### 5 8410-2 ####[facility] LABCL[facility] [id number] [place] [address] [facility] Platelet mean volume (Bld) [Entitic vol] 10.0 fL Normal 9.0-12.7 [facility] Comment on above: Order Comment: Speci men Type: BLOOD SPECIMENOrdering Facility: [facility] Address: [address] [place] [address] Performed By: #### 5 8410-2 ####[facility] LABCLIA [id number] [place] [address] [facility] Platelets (Bld) [#/Vol] 179 10*3/uL Normal 150-400 [facility] Comment on above: Order Comment: Speci men Type: BLOOD SPECIMENOrdering Facility: [facility] Address: [address] [place] [address] Performed By: #### 5 8410-2 ####[facility] LABCLIA [id number] [place] [address] [facility] RBC (Bld) [#/Vol] 4.42 10*6/uL Normal 3.90-5.20 [facility] Comment on above: Order Comment: Speci men Type: BLOOD SPECIMENOrdering Facility: [facility] Address: [address] [place] [address] Performed By: #### 5 8410-2 ####[facility] LABCLIA [id number] [place] [address] [facility] WBC (Bld) [#/Vol] 4.44 10*3/uL Normal 3.70-11.00 [facility] Comment on above: Order Comment: Speci men Type: BLOOD SPECIMENOrdering Facility: [facility] Address: [address] [place] [address] Performed By: #### 5 8410-2 ####[facility] LABCLIA [id number] [place] [address] [facility] CTA CHEST (NON GATED) W IVCO N PEon 11-26-2024 CTA CHEST (NON GATED) W IVCON PE * * *Final Report* * * DATE OF EXAM: Nov 26 2024 3:37PM [facility] 0564 - CTA CHEST (NON GATED) W IVCON PE / PROCEDURE REASON: Pulmonary embolism (PE) suspected, high prob * * * * Physician Interpretation * * * * EXAMINATION: CHEST CTA (NON GATED) WITH CONTRAST (PULMONARY EMBOLISM PROTOCOL) Clinical History: Chest pain Technique: Spiral CT acquisition of the chest from the thoracic inlet to the upper abdomen following IV contrast. Axial 1 and 3 mm thick slices plus coronal and sagittal reformatted images. MQ: CTCP_5 Contrast: 100 mL Omnipaque [address] Radiation dose: Integrated Dose-length product (DLP) for this visit = 573.70 mGy*cm CT Dose Reduction Employed: Automated exposure control(AEC) and iterative recon CTA: Post-processed images (Maximum intensity Projection (MIP), Volume-rendered (VR), or Surface shaded display images (SSD) were created, reviewed and archived. Comparison: No relevant prior studies available. RESULT: Limitations: None. Evaluation for thromboembolic disease: - Right heart chambers: No thromboembolic disease. - Main pulmonary arteries: No thromboembolic disease. - Lobar pulmonary arteries: No thromboembolic disease. - Segmental pulmonary arteries: No thromboembolic disease. - Subsegmental pulmonary arteries: No thromboembolic disease. - Additional pulmonary artery findings: The main pulmonary artery is normal in caliber. Lines, tubes, and devices: Right-sided DESIGNER/WRITER shunt coursing superficial to the right hemithorax into the right flank region of the abdomen Lung parenchyma and airways: No consolidation. No suspicious pulmonary nodule. The central airways are patent. Pleural space: No pleural effusion. No pleural thickening. Lower neck, lymph nodes, and mediastinum: The imaged thyroid gland is normal. No lymphadenopathy in the supraclavicular, axillary, mediastinal, or hilar regions. Heart, pericardium, and thoracic vessels: The thoracic aorta is normal in caliber. The cardiac chambers are normal in size. No coronary artery atherosclerotic calcifications are noted, although the study is not optimized for coronary assessment. No pericardial effusion or thickening. Bones and soft tissues: No destructive bone lesion. Chest wall is unremarkable. Posterior decompression posterior internal fixation hardware lumbar spine Upper abdomen: No acute abnormality in the imaged upper abdomen. Small hiatal hernia with thickening of the GE junction wall axial image 68 Atrophic right kidney. IMPRESSION: No CT evidence of pulmonary embolism. Small hiatal hernia with thickening of the GE junction wall axial image 68 Lungs are clear without inflammatory infiltrates Right-sided DESIGNER/WRITER shunt coursing superficial to the right hemithorax into the right flank region of the abdomen Irrigation District Manager: PSC[employer] Transcribe Date/Time: Nov 26 2024 3:47P Dictated by : AFRICA CANNON MD This examination was interpreted and the report reviewed and electronically signed by: AFRICA CANNON MD on Nov 26 2024 3:52PM EST [id number] Normal [facility] Comprehensive metabolic 2000 panelon 11-26-2024 Albumin [Mass/Vol] 3.5 g/dL Low 3.9-4.9 [facility] Comment on above: Order Comment: Speci men Type: BLOOD SPECIMENOrdering Facility: [facility] Address: [address] [place] [address] Performed By: #### 2 4323-8, 73390-9 ####[facility] [place] LABCLIA [id number] [facility] [place] [address] [place] [facility] ALP [Catalytic activity/Vol] 78 U/L Normal 34-123 [facility] Comment on above: Order Comment: Speci men Type: BLOOD SPECIMENOrdering Facility: [facility] Address: [address] [place] [address] Performed By: #### 2 4323-8, 81676-8 ####[facility] [place] LABCLIA [id number] [facility] [place] [address] [place] [facility] ALT With P-5'-P [Catalytic activity/Vol] 12 U/L Normal 7-38 [facility] Comment on above: Order Comment: Speci men Type: BLOOD SPECIMENOrdering Facility: [facility] Address: [address] [place] [address] Performed By: #### 2 4323-8, 65777-6 ####[facility] [place] LABCLIA [id number] [place] [address] [place] [facility] Anion gap [Moles/Vol] 8 mmol/L Normal 8-15 [facility] Comment on above: Order Comment: Speci men Type: BLOOD SPECIMENOrdering Facility: [facility] Address: [address] [place] [address] Performed By: #### 2 4323-8, 21004-3 ####[facility] [place] LABCLIA [id number] [place] [address] [facility] AST With P-5'-P [Catalytic activity/Vol] 17 U/L Normal 13-35 [facility] Comment on above: Order Comment: Speci men Type: BLOOD SPECIMENOrdering Facility: [facility] Address: [address] [place] [address] Performed By: #### 2 4323-8, 40561-8 ####[facility] [place] LABCLIA [id number] [place] [address] [place] Bilirubin [Mass/Vol] 0.2 mg/dL Normal 0.2-1.3 [facility] Comment on above: Order Comment: Speci men Type: BLOOD SPECIMENOrdering Facility: [facility] Address: [address] [place] [address] Performed By: #### 2 4323-8, 69185-9 ####[facility] [place] LABCLIA [id number] [place] [address] [place] Calcium [Mass/Vol] 9.0 mg/dL Normal 8.5-10.2 [facility] Comment on above: Order Comment: Speci men Type: BLOOD SPECIMENOrdering Facility: [facility] Address: [address] [place] [address] Performed By: #### 2 4323-8, 68397-1 ####[facility] [place] LABCLIA [id number] [place] [address] [place] Chloride [Moles/Vol] 107 mmol/L Normal 98-107 [facility] Comment on above: Order Comment: Speci men Type: BLOOD SPECIMENOrdering Facility: [facility] Address: [address] [place] [address] Performed By: #### 2 4323-8, 63408-3 ####[facility] [place] LABCLIA [id number] [place] [address] [place] CO2 [Moles/Vol] 26 mmol/L Normal 22-30 [facility] Comment on above: Order Comment: Speci men Type: BLOOD SPECIMENOrdering Facility: [facility] Address: [address] [place] [address] Performed By: #### 2 4323-8, 73364-9 ####[facility] [place] LABCLIA [id number] [place] [address] [place] Creatinine [Mass/Vol] 0.87 mg/dL Normal 0.58-0.96 [facility] Comment on above: Order Comment: Fredy dowd Type: BLOOD SPECIMENOrdering Facility: [facility] Address: [address] [place] [address] Performed By: #### 2 4323-8, 34259-2 ####[facility] LABCLIA [id number] [place] [address] [facility] Creatinine and Glomerular filtration rate.predicted panel (S/P/Bld) 67 mL/min/1.73m??? Normal >=60 [facility] Comment on above: Order Comment: Fredy dowd Type: BLOOD SPECIMENOrdering Facility: [facility] Address: [address] [place] [address] Result Comment: Anna mated Glomerular Filtration Rate (eGFR) is calculated using the 2020 CKD-EPI creatinine equation. This equation utilizes serum creatinine, sex, and age as parameters. The creatinine assay has traceable calibration to isotope dilution-mass spectrometry. Refer to KDIGO guidelines for clinical interpretation. In patients with unstable renal function, e.g. those with acute kidney injury, the eGFR may not accurately reflect actual GFR. Performed By: #### 2 4323-8, 19210-6 ####[facility] LABCLIA [id number] [place] [address] [place] Glucose [Mass/Vol] 97 mg/dL Normal 74-99 [facility] Comment on above: Order Comment: Fredy dowd Type: BLOOD SPECIMENOrdering Facility: [facility] Address: [address] [place] [address] Result Comment: The [place] [employer] (ADA) provides guidance for cutoff values for fasting glucose and random glucose. The ADA defines fasting as no caloric intake for at least 8 hours. Fasting plasma glucose results between 100 to 125 mg/dL indicate increased risk for diabetes (prediabetes). Fasting plasma glucose results greater than or equal to 126 mg/dL meet the criteria for diagnosis of diabetes. In the absence of unequivocal hyperglycemia, results should be confirmed by repeat testing. In a patient with classic symptoms of hyperglycemia or hyperglycemic crisis, random plasma glucose results greater than or equal to 200 mg/dL meet the criteria for diagnosis of diabetes. Reference: Standards of Medical Care in Diabetes 2016, [place] [employer]. Diabetes Care. 2016.39(Suppl 1). Performed By: #### 2 4323-8, 70757-0 ####[facility] [place] LABCLIA [id number] [place] [address] [place] Potassium [Moles/Vol] 3.8 mmol/L Normal 3.7-5.1 [facility] Comment on above: Order Comment: Speci men Type: BLOOD SPECIMENOrdering Facility: [facility] Address: [address] [place] [address] Performed By: #### 2 4323-8, 83743-5 ####[facility] LABCLIA [id number] [place] [address] [place] Protein [Mass/Vol] 6.3 g/dL Normal 6.3-8.0 [facility] Comment on above: Order Comment: Speci men Type: BLOOD SPECIMENOrdering Facility: [facility] Address: [address] [place] [address] Performed By: #### 2 4323-8, 28557-2 ####[facility] LABCLIA [id number] [place] [address] [place] Sodium [Moles/Vol] 141 mmol/L Normal 136-144 [facility] Comment on above: Order Comment: Speci men Type: BLOOD SPECIMENOrdering Facility: [facility] Address: [address] [place] [address] Performed By: #### 2 4323-8, 77107-7 ####[facility] LABCLIA [id number] [place] [address] [place] Urea nitrogen [Mass/Vol] 17 mg/dL Normal 7-21 [facility] Comment on above: Order Comment: Speci men Type: BLOOD SPECIMENOrdering Facility: [facility] Address: [address] [place], [place] [address] Performed By: #### 2 4323-8, 14005-1 ####[facility] [place] LABCLIA [id number] [place] [address] [place] D dimer FEU PPP-mCncon 11-26 Fibrin D-dimer FEU (PPP) [Mass/Vol] 3910 ng/mL FEU High <500 [facility] Comment on above: Order Comment: Speci men Type: BLOOD SPECIMENOrdering Facility: [facility] Address: [address] [place] [address] Performed By: #### 4 8065-7 ####[facility] LABCLIA [id number] [place] [address] [place] ECG COMPLETEon 11-26-2024 ECG COMPLETE Ventricular Rate : 7 0 BPM Atrial Rate : 70 BPM P-R Interval : 164 ms QRS Duration : 80 ms Q-T Interval : 410 ms QTC Calculation(Bazett) : 442 ms Calculated P State Line : 48 degrees Calculated R State [place] : -8 degrees Calculated T State Line : 46 degrees NORMAL SINUS RHYTHM INFERIOR INFARCT (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) ABNORMAL ECG WHEN COMPARED WITH ECG OF 12-Jul-2024 15:54, NO SIGNIFICANT CHANGE WAS FOUND Confirmed by MD FATIMA VINAYAK ([id number]) on 11/28/2024 10:54:31 PM NAME : CHRISTIAN SUGGS PID : [id number] : 1945 Gender : Female Race : ORD : [id number] Procedure Date : Nov 26 2024 13:28:44 Edit Date : Nov 28 2024 22:54:33 Diagnosis: NORMAL SINUS RHYTHM INFERIOR INFARCT (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) ABNORMAL ECG WHEN COMPARED WITH ECG OF 12-Jul-2024 15:54, NO SIGNIFICANT CHANGE WAS FOUND Confirmed by MD FATIMA VINAYAK ([id number]) on 11/28/2024 10:54:31 PM Test Reason : Chest Pain Location : 191 : [facility] ED Overread By : MD FATIMA VINAYAK Edited By : MD FATIMA VINAYAK Referred By : , Acquired by : CYRIL MISTRY [facility] ED NOTEon 11-26-2024 ED NOTE HNO ID: [id number] Author: NATALYA SAMANO, RN Service: Nursing Author Type: Registered Nurse Type: ED Notes Filed: 11/26/2024 18:13 Note Text: Patient leaves pleasant and cooperative, alert and oriented x 3 with regular and easy respirations. Discharge instructions discussed. There are no additional questions for the provider. Medications discussed with patients verbal understanding of purpose and potential side effects. Will follow up as directed or return to ED for worsening or life threatening symptoms. [facility] ED NOTE HNO ID: [id number] Author: NATALYA SAMANO RN Service: Nursing Author Type: Registered Nurse Type: ED Notes Filed: 11/26/2024 17:39 Note Text: Patient resting in bed with daughter and spouse at bedside. [facility] ED NOTE HNO ID: [id number] Author: NATALYA SAMANO RN Service: Nursing Author Type: Registered Nurse Type: ED Notes Filed: 11/26/2024 17:02 Note Text: at bedside [facility] ED NOTE HNO ID: [id number] Author: NATALYA SAMANO RN Service: Nursing Author Type: Registered Nurse Type: ED Notes Filed: 11/26/2024 15:18 Note Text: Patient denies heart burn at this time sine being medicated. [facility] ED NOTE HNO ID: [id number] Author: NATALYA SAMANO RN Service: Nursing Author Type: Registered Nurse Type: ED Notes Filed: 11/26/2024 13:37 Note Text: Patient has been out of Omeprazole x 1 week. [facility] ED NOTE HNO ID: [id number] Author: NATALYA SAMANO RN Service: Nursing Author Type: Registered Nurse Type: ED Notes Filed: 11/26/2024 13:35 Note Text: Patient was woke up this morning with heartburn. Denies chest pain, SOB, N/V, diaphoresis or palpitations. She reports chronic bilateral lower leg edema and is unsure if they are worse today or not. She is AAND0 x 4. Her daughter is at bedside. Patient feels steady on her feet, uses a cane at times. [facility] ED NOTE HNO ID: [id number] Author: TINCHER, NATALYA, RN Service: Nursing Author Type: Registered Nurse Type: ED Notes Filed: 11/26/2024 13:29 Note Text: Normal [facility] ED NOTE HNO ID: [id number] Author: KAYLA PARISH RN Service: Emergency Medicine Author Type: Registered Nurse Type: ED Notes Filed: 11/26/2024 13:20 Note Text: Woke up this morning with chest pain and weakness, brought to ED for eval by daughter Normal [facility] ED PROV NOTEon 11-26-2024 ED PROV NOTE HNO ID: [id number] Author: ONEL SETHI MD Service: Emergency Medicine Author Type: Physician Type: ED Provider Notes Filed: 11/28/2024 08:41 Note Text: ED Provider Note Patient Name: Christian Suggs : 1945 SERVICE DATE: 11/26/24 History Patient presents with: Chest Pain Weakness HPI This is an 79-year-old female that presents with heartburn. She describes it as predominantly a feeling of getting heartburn and acid reflux up into her mouth. She states she has been not taking her omeprazole for approximately 1 week. She also complains of lower extremity edema she thinks this is pretty chronic but is wondering if these are worse than usual. She denies any pleuritic chest pain, she denies any ripping or tearing chest pain or severe pressure, she denies any shortness of breath fevers cough. PAST MEDICAL HISTORY Diagnosis Date Allergic rhinitis Arthritis Back C. difficile enteritis History of back surgery 07/21/2011 HLD (hyperlipidemia) Lymphocytic colitis Melanoma (HCC) right thigh NPH (normal pressure hydrocephalus) (HCC) [facility] (obstructive sleep apnea) Rotator cuff tear arthropathy of right shoulder 07/21/2012 Urinary retention PAST SURGICAL HISTORY Procedure Laterality Date ARTHRP KNE CONDYLEANDPLATU MEDIALANDLAT COMPARTMENTS Right 10/2014 CARPAL TUNNEL 2009 bilateral CHOLECYSTECTOMY HX N/A COLONOSCOPY FLX DX W/COLLJ SPEC WHEN PFRMD 02/02/2016 JOINT REPLACEMENT HX ORTHOPEDICS SURGERY HX PAST SURGICAL HISTORY OF 1999 bladder repair PAST SURGICAL HISTORY OF 2007 melanoma removal FAMILY HISTORY Problem Relation Age of Onset Heart Father late in life Breast Cancer Maternal Aunt Diabetes Other none Colon Cancer Other none Coronary Artery Disease Other none Social History Tobacco Use Smoking status: Never Smokeless tobacco: Never Vaping Use Vaping status: Never Used Substance and Sexual Activity Alcohol use: No Drug use: No Sexual activity: Not Currently Partners: Male ALLERGIES Allergen Reactions Hydrocodone Bitartr* GI Upset Mesalamine Myalgia Oxycodone GI Upset Flagyl [Nitroimidaz* Other: See Comments metal mouth Scopolamine Other: See Comments Review of Systems Physical Exam Vitals [11/26/24 1320] BP Pulse Temp Temp src Resp SpO2 Weight Height 127/78 72 36.8 ?C (98.2 ?F) -- 16 96 % 78.9 kg (174 lb) -- Physical Exam Vitals and nursing note reviewed. Constitutional: Appearance: She is well-developed. She is not toxic-appearing or diaphoretic. HENT: Head: Normocephalic and atraumatic. Right Ear: Tympanic membrane, ear canal and external ear normal. Left Ear: Tympanic membrane, ear canal and external ear normal. Mouth/Throat: Mouth: Mucous membranes are moist. Mucous membranes are not dry. Pharynx: Uvula midline. No oropharyngeal exudate or posterior oropharyngeal erythema. Eyes: General: No scleral icterus. Extraocular Movements: Extraocular movements intact. Conjunctiva/sclera: Conjunctivae normal. Right eye: Right conjunctiva is not injected. Left eye: Left conjunctiva is not injected. Pupils: Pupils are equal, round, and reactive to light. Neck: Vascular: No JVD. Cardiovascular: Rate and Rhythm: Normal rate and regular rhythm. Pulses: Normal pulses. Radial pulses are 2+ on the right side and 2+ on the left side. Dorsalis pedis pulses are 2+ on the right side and 2+ on the left side. Posterior tibial pulses are 2+ on the right side and 2+ on the left side. Heart sounds: Normal heart sounds. No murmur heard. No friction rub. No gallop. Pulmonary: Effort: Pulmonary effort is normal. No respiratory distress. Breath sounds: Normal breath sounds. No stridor. No wheezing, rhonchi or rales. Chest: Chest wall: No tenderness. Abdominal: General: Bowel sounds are normal. There is no distension. Palpations: Abdomen is soft. Tenderness: There is no abdominal tenderness. There is no right CVA tenderness or left CVA tenderness. Musculoskeletal: General: No swelling or tenderness. Cervical back: Neck supple. Right lower leg: No tenderness. Edema (2+) present. Left lower leg: No tenderness. Edema (2+) present. Lymphadenopathy: Cervical: No cervical adenopathy. Skin: General: Skin is warm and dry. Capillary Refill: Capillary refill takes less than 2 seconds. Findings: No rash. Neurological: Mental Status: She is alert and oriented to person, place, and time. Cranial Nerves: No cranial nerve deficit. Sensory: No sensory deficit. Motor: No weakness. Gait: Gait normal. Psychiatric: Mood and Affect: Mood normal. Diagnostic Testing ED Labs Ordered and Reviewed COMPREHENSIVE METABOLIC PANEL - Abnormal; Notable for the following components: Result Value Ref Range Albumin 3.5 (*) 3.9 - 4.9 g/dL All other components within normal limits COMPLETE BLOOD COUNT - Abnormal; Notable for the following components: (more content not included)... Normal [facility] Fibrin D-dimer FEU (PPP) [Ma ss/Vol]on 11-26-2024 D DIMER AGE-RELATED CUTOFF 810 ng/mL FEU Normal [facility] Comment on above: Order Comment: Fredy dowd Type: BLOOD SPECIMENOrdering Facility: [facility] Address: [address] [place] [address] Performed By: #### 4 8065-7 ####[facility] [id number] [place] [id number] [place] HIGH SENSITIVITY TROPONIN T (INITIAL)on 11-26-2024 Troponin T.cardiac High sensitivity method [Mass/Vol] 20 ng/L High <12 [facility] Comment on above: Order Comment: Fredy dowd Type: BLOOD SPECIMENOrdering Facility: [facility] Address: [address] [place] [address] Performed By: #### L [id number] ####[facility] LABIA [id number] [place] [address] [facility] HIGH SENSITIVITY TROPONIN T (SECOND)on 11-26-2024 Troponin T.cardiac High sensitivity method [Mass/Vol] 21 ng/L High <12 [facility] Comment on above: Order Comment: Fredy dowd Type: BLOOD SPECIMENOrdering Facility: [facility] Address: [address] [place] [id number] Performed By: #### L [id number] ####[facility] LABIA [id number] [place] [address] [facility] HIGH SENSITIVITY TROPONIN T (THIRD) 3 HRS AFTER INITIALon 11-26-2024 Troponin T.cardiac High sensitivity method [Mass/Vol] 21 ng/L High <12 [facility] Comment on above: Order Comment: Speci men Type: BLOOD SPECIMENOrdering Facility: [facility] Address: [address] [place] [address] Performed By: #### L [id number] ####[facility] [id number] [place] [address] [facility] NT-proBNP [facility] 11-26 Natriuretic peptide.B prohormone N-Terminal [Mass/Vol] 98 pg/mL Normal <450 [facility] Comment on above: Order Comment: Speci men Type: BLOOD SPECIMENOrdering Facility: [facility] Address: [address] [place] [address] Performed By: #### 2 4323-8, 30099-3 ####[facility] [id number] [place] [address] [facility] US DVT LOWER BILon 5 US DVT LOWER JACLYN * * *Final Report* * * DATE OF EXAM: Nov 26 2024 4:18PM LDU 1005 - US DVT LOWER JACLYN / PROCEDURE REASON: Leg deep vein thrombosis (DVT) suspected * * * * Physician Interpretation * * * * EXAMINATION: RIGHT AND LEFT LOWER EXTREMITY DEEP VENOUS ULTRASOUND WITH DOPPLER IMAGING CLINICAL HISTORY: Pain and swelling. TECHNIQUE: Grayscale with compression maneuvers, color Doppler and spectral Doppler imaging of the right and left proximal deep veins was performed. Grayscale with compression maneuvers of the right and left peroneal and posterior tibial veins was performed. The right and left great and small saphenous veins were evaluated at their insertion to the deep system. Images were obtained and stored in a permanent archive. MQ: [id number]_1 COMPARISON: None RESULT: RIGHT LOWER EXTREMITY PROXIMAL DEEP VEINS Distal External Iliac, Common Femoral and Proximal Profunda Veins: Compression: Normal Doppler: Normal, spontaneous respirophasic flow. Normal response to augmentation. Femoral vein: Compression: Normal Doppler: Normal, spontaneous respirophasic flow. Normal response to augmentation. Popliteal vein: Compression: Normal Doppler: Normal, spontaneous respirophasic flow. Normal response to augmentation. CALF DEEP VEINS Peroneal veins: Normal compression. Posterior tibial veins: Normal compression. Gastrocnemius and Soleal veins: Not imaged. SUPERFICIAL VEINS Great saphenous: Patent and compressible at insertion into common femoral vein; not otherwise assessed. Small Saphenous: Patent and compressible in the proximal calf, not otherwise assessed. LEFT LOWER EXTREMITY PROXIMAL DEEP VEINS Distal External Iliac, Common Femoral and Proximal Profunda Veins: Compression: Normal Doppler: Normal, spontaneous respirophasic flow. Normal response to augmentation. Femoral vein: Compression: Normal Doppler: Normal, spontaneous respirophasic flow. Normal response to augmentation. Popliteal vein: Compression: Normal Doppler: Normal, spontaneous respirophasic flow. Normal response to augmentation. CALF DEEP VEINS Peroneal veins: Normal compression. Posterior tibial veins: Normal compression. Gastrocnemius and Soleal veins: Not imaged. SUPERFICIAL VEINS Great saphenous: Patent and compressible at insertion into common femoral vein; not otherwise assessed. Small Saphenous: Patent and compressible in the proximal calf, not otherwise assessed. IMPRESSION: Negative study for proximal DVT in the left and right lower extremities. Negative study for calf DVT in the left and right lower extremities. Negative study for superficial thrombophlebitis in the imaged segments of the left and right lower extremities. Irrigation District Manager[facility] Transcribe Date/Time: Nov 26 2024 4:32P Dictated by : EARLINE LEAVITT MD This examination was interpreted and the report reviewed and electronically signed by: EARLINE LEAVITT MD on Nov 26 2024 4:33PM EST [id number] Normal [facility] XR CHEST 2V FRONTAL/LATon XR CHEST 2V FRONTAL/LAT * * *Final Repor t* * * DATE OF EXAM: Nov 26 2024 2:04PM LDX 5291 - XR CHEST 2V FRONTAL/LAT / PROCEDURE REASON: Chest Pain * * * * Physician Interpretation * * * * EXAMINATION: CHEST RADIOGRAPH (2 VIEW FRONTAL and LATERAL) CLINICAL HISTORY: Chest Pain MQ: XC2_6 EXAM DATE/TIME: 11/26/2024 2:04 PM COMPARISON: 09/09/2025 RESULT: Lines, tubes, and devices: Right-sided DESIGNER/WRITER shunt tubing Lungs and pleura: No consolidation. No lung mass. No pleural effusion. No pneumothorax. Cardiomediastinal silhouette: Normal cardiomediastinal silhouette. Bones and soft tissues: Surgical hardware lumbar spine IMPRESSION: No acute radiographic abnormality. Irrigation District Manager: [facility] Transcribe Date/Time: Nov 26 2024 2:07P Dictated by : AFRICA CANNON MD This examination was interpreted and the report reviewed and electronically signed by: AFRICA CANNON MD on Nov 26 2024 2:14PM EST [id number] Normal [facility] CNOVon 09-21-2024 CNOV Office Visit (NEAGCL M) ESCHRISTIAN ([id number]) 1945 F Date Time Provider Department 09/21/24 11:30 AM JEAN RODRÍGUEZ NEAGCLM During your visit today, we recorded the following information about you: Pulse Respiration Blood pressure Weight 82/minute 16/minute 121/79 79 kg Height 1.626 m Jean Rodríguez MD 09/21/2024 11:24 AM Signed NEUROSURGERY FOLLOW UP OFFICE NOTE Dr. Jean Rodríguez MD, FACS Date of visit: September 21, 2024 Patient Name: Ms.Tuula Kat Es Date of : 1945 Current Age: [age] year old Sex: female MRN/E# [id number] Last Office Visit: January 30, 2024 CHIEF COMPLAINT: Patient presents with: Established Patient SUBJECTIVE: The patient presents as a follow up without new imaging for evaluation. This is a 79-year-old female with a PMHx of arthritis, melanoma (right thigh), rotator cuff tear and NPH who was seen for consult on 03/05/2022 as a referral from the [place] emergency department. After sustaining a fall while working in her garden CT brain was obtained and was concerning for ventriculomegaly and work-up for possible NPH (normal pressure hydrocephalus) was recommended. Evaluation and additional imaging was obtained and there was no evidence of a cerebral mass, lesion or ventricular size being out of proportion. She was referred to neurology for complete evaluation to include possible dementia and/or NPH. Once work-up was completed it was determined that she would benefit from a ventriculoperitoneal shunt and this was agreed to and completed as noted below. Since then she has been seen routinely in the office for evaluation with shunt adjustments and hadn gradually improved. In December 2022 she and her felt that her memory had not gotten much better. They both agreed that her gait had improved. Neurologically she remained intact on exam without focal deficit with a slightly compensated gait. CT brain was reviewed and showed no change in the size of the ventricular system or the position of the shunt. Recommendation was to adjust the shunt setting from 120 to 110 and follow-up in [address] brain. Since then she has been seen routinely for evaluation with imaging and has over all done well. In March 2023 she presented after a fall in her kitchen while cleaning the floor causing her to strike her head. She denied any headache or new neurological changes. She reported continued fatigue, balance issues and memory deficits. She felt that her symptoms were better immediately following placement of DESIGNER/WRITER shunt and since then had not improved. Shunt valve settings remained at 110. Neurologically she was intact on exam without focal deficit with the exception of a compensated gait for which she utilized a cane as an assistive device. CT head was obtained and reviewed given her recent fall and use of aspirin. The ventricular system appeared stable without change in size and there was no evidence of subdural hematoma. It was discussed with her and her family that the shunt was functioning well and there was no indication to adjust the setting. Recommendation was that she participate in a course of physical therapy for gait, follow-up with neurology to see if she would benefit from medications for her memory and follow-up with neurosurgery in 1 year for a routine visit. She was last seen in the office in January 2024 and reported that she was overall doing well. She denied any new or concerning issues since last visit. Gait was improved compared to preoperative status. She denied urinary incontinence. She continued with some memory deficits. Shunt site was intact. Recommendation was to follow up in one year for a routine evaluation. Prior to her one year follow up, she contacted the office with reports of not feeling right. She had presented to the ED twice. She complained of head pressure without headache and her daughter said that she had misused a few words. Recommendation was to present to the office for a shunt evaluation prompting her visit today. She states she has developed a pressure on the left side of her head. She wakes up with the pressure and it goes away when she becomes active. She thinks her memory has worsened and she continues with urinary incontinence. She presents for evaluation and plan of care. SYMPTOMS: Decreased balance, decreased memory, urinary frequency PREVIOUS CONSERVATIVE TREATMENTS: None SURGICAL RISK: Smoker: Never Diabetic: No Anticoagulants / Antiplatelets: Low dose ASA 81 mg daily Occupation: N/A PREVIOUS NEUROSURGERY: SURGERY#1: Creation of ventriculoperitoneal shunt system programmable Codman valve set at 140 on 10/16/[address] Rodríguez. *Shunt valve setting decreased to 130 on 10/21/22. *Shunt valve setting decreased to 120 on 10/30/2022 *Shunt valve setting decreased to 110 on 12/20/22 ÁNGEL (more content not included)... Normal [facility] 09-14-2024 SONAM Telephone (NEAGCLM) CHRISTIAN SUGGS ([id number]) 1945 F Date Time Provider Department 09/14/24 LYNN MURDOCK During your visit today, we recorded the following information about you: Lynn Murdock APRN.DILLON 09/14/2024 3:09 PM Signed Returned call to patients daughter. She reported that she spoke to her mom today who reported that she was not feeling herself. She complained of head pressure without headache and she misused a word during their conversation. She had been seen in the ED a few days ago with similar symptoms. Work up was completed including CT head and shunt series which were all negative for any change, bleed, shunt malfunction or abnormality. Christian is otherwise awake, alert, denying headache, sleepiness, visual changes, nausea/vomiting or any other neurological change. She simply can not pinpoint the symptoms she is feeling. Dr. Rodríguez reviewed her recent imaging and determined that the valve setting is unchanged at 110 which it was set to on 12/20/22. We will plan to see Christian on 09/22/23 as scheduled for evaluation. Her daughter agreed to this plan of care and will call with any other questions or concerns. Lynn Murdock APRN-[facility] Neurosurgery Nurse Practitioner [facility] 3:07 PM 09/14/2024 Allergies As of Date: 09/14/2024 Noted Allergy Reaction HYDROCODONE BITARTRATE 09/17/2018 8 - GI Upset MESALAMINE 09/24/2021 17 - Myalgia OXYCODONE 09/17/2018 8 - GI Upset FLAGYL (NITROIMIDAZOLES) 01/15/2016 14 - Other: See Comments Comments: metal mouth SCOPOLAMINE 09/17/2018 14 - Other: See Comments Date Reviewed: 09/09/2024 Reviewed by: Ruth Ann Alvarez, RN - Fully Assessed Reason for Visit: Returning Patient's Call [[id number]] Prescriptions as of 09/14/2024 - tamsulosin (FLOMAX) 0.4 mg Take 1 capsule by mouth once daily at bedtime - triamcinolone acetonide (KENALOG) 0.1 % cream - aspirin, enteric coated (ASPIRIN, ENTERIC COATED) 81 mg EC tablet Take 1 tablet by mouth once daily. To begin on 11/04/22 - CALCIUM-VITAMIN D3 ORAL Take 1 capsule by mouth once daily. - biotin 1 mg cap Take 1 capsule by mouth once daily. - Melatonin 5 mg cap Take 1 capsule by mouth daily at bedtime. - rosuvastatin (CRESTOR) 5 mg tablet Take 1 tablet by mouth once daily. - budesonide, enteric coated (ENTOCORT EC) 3 mg 24 hr capsule Take 2 capsules by mouth daily before breakfast. Resume after Dexamethasone completed - omeprazole (PRILOSEC) 40 mg capsule Take 40 mg by mouth once daily. - DULoxetine (CYMBALTA) 30 mg capsule Take 1 capsule by mouth daily at bedtime. - multivitamin ORAL tablet Take 1 tablet by mouth once daily. 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] 06/06/2011 Myringitis [H73.20] 06/06/2011 Osteoporosis [M81.0] 06/06/2011 Lymphocytic colitis [K52.832] 02/07/2016 Neck pain [M54.2] 06/08/2021 08/17/2021 Frequent falls [R29.6] 06/08/2021 08/17/2021 Weakness of back [R29.898] 06/08/2021 08/17/2021 Cerebral ventriculomegaly [G93.89] 02/19/2022 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] 02/19/2022 Balance problems [R26.89] 02/19/2022 Thyroid nodule [E04.1] 02/19/2022 Family history of ischemic heart disease and ot*03/05/2022 COVID-19 [U07.1] 06/20/2022 07/05/2022 Urinary retention [R33.9] 06/21/2022 Fall at home, initial encounter [W19.XXXA, Y92.*06/23/2022 Acute respiratory failure with hypoxemia (HCC) *06/24/2022 06/27/2022 UTI (urinary tract infection) [N39.0] 06/24/2022 Endometrial mass [N94.89] 06/24/2022 Elevated troponin [R79.89] 06/24/2022 07/05/2022 Obesity, Class I, BMI 30-34.9 [E66.811] 06/24/2022 Acute respiratory failure with hypoxia (HCC) [J*06/24/2022 07/05/2022 Aftercare [Z51.89] 06/27/2022 NPH (normal pressure hydrocephalus) (HCC) [G91.*08/28/2022 KAISER (obstructive sleep apnea) [G47.33] 08/28/2022 History of pulmonary embolism [Z86.711] 08/28/2022 HLD (hyperlipidemia) [E78.5] 08/28/2022 Preop testing [Z01.818] 10/02/2022 Rheumatoid arthritis (HCC) [M06.9] 10/03/2022 S/P ventriculoperitoneal shunt [Z98.2] 11/13/2022 Encounter Status:Closed by LYNN MURDOCK on 09/14/24 [facility] CNPN Telephone (NEAGCLM) CHRISTIAN SUGGS ([id number]) 1945 F Date Time Provider Department 09/14/24 JEAN RODRÍGUEZ NEAGCLM During your visit today, we recorded the following information about you: Los Hamilton RN 09/14/2024 2:54 PM Signed Patients daughter called concerned that her mom was having pressure in her head and seemed confused on the phone, misusing words. Noted she was in the ED on 09/[address] brain and no concerns with her shunt/placement. Daughter noted she had a history of TIA's and recently had a UTI. Advised they reach out to PCP for repeat urine and if concerned with stroke like symptoms to present to the ED. Discussed with Dr. Rodríguez and MAHI Bailey. Lynn noted she had spoke with patient and was set up for a sooner visit for 09/21. Informed daughter of this information as well. She was thankful and understanding. Los Hamilton RN Allergies As of Date: 09/14/2024 Noted Allergy Reaction HYDROCODONE BITARTRATE 09/17/2018 8 - GI Upset MESALAMINE 09/24/2021 17 - Myalgia OXYCODONE 09/17/2018 8 - GI Upset FLAGYL (NITROIMIDAZOLES) 01/15/2016 14 - Other: See Comments Comments: metal mouth SCOPOLAMINE 09/17/2018 14 - Other: See Comments Date Reviewed: 09/09/2024 Reviewed by: Ruth Ann Alvarez RN - Fully Assessed Reason for Visit: Patient Update [1234] Prescriptions as of 09/14/2024 - tamsulosin (FLOMAX) 0.4 mg Take 1 capsule by mouth once daily at bedtime - triamcinolone acetonide (KENALOG) 0.1 % cream - aspirin, enteric coated (ASPIRIN, ENTERIC COATED) 81 mg EC tablet Take 1 tablet by mouth once daily. To begin on 11/04/22 - CALCIUM-VITAMIN D3 ORAL Take 1 capsule by mouth once daily. - biotin 1 mg cap Take 1 capsule by mouth once daily. - Melatonin 5 mg cap Take 1 capsule by mouth daily at bedtime. - rosuvastatin (CRESTOR) 5 mg tablet Take 1 tablet by mouth once daily. - budesonide, enteric coated (ENTOCORT EC) 3 mg 24 hr capsule Take 2 capsules by mouth daily before breakfast. Resume after Dexamethasone completed - omeprazole (PRILOSEC) 40 mg capsule Take 40 mg by mouth once daily. - DULoxetine (CYMBALTA) 30 mg capsule Take 1 capsule by mouth daily at bedtime. - multivitamin ORAL tablet Take 1 tablet by mouth once daily. 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] 06/06/2011 Myringitis [H73.20] 06/06/2011 Osteoporosis [M81.0] 06/06/2011 Lymphocytic colitis [K52.832] 02/07/2016 Neck pain [M54.2] 06/08/2021 08/17/2021 Frequent falls [R29.6] 06/08/2021 08/17/2021 Weakness of back [R29.898] 06/08/2021 08/17/2021 Cerebral ventriculomegaly [G93.89] 02/19/2022 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] 02/19/2022 Balance problems [R26.89] 02/19/2022 Thyroid nodule [E04.1] 02/19/2022 Family history of ischemic heart disease and ot*03/05/2022 COVID-19 [U07.1] 06/20/2022 07/05/2022 Urinary retention [R33.9] 06/21/2022 Fall at home, initial encounter [W19.XXXA, Y92.*06/23/2022 Acute respiratory failure with hypoxemia (HCC) *06/24/2022 06/27/2022 UTI (urinary tract infection) [N39.0] 06/24/2022 Endometrial mass [N94.89] 06/24/2022 Elevated troponin [R79.89] 06/24/2022 07/05/2022 Obesity, Class I, BMI 30-34.9 [E66.811] 06/24/2022 Acute respiratory failure with hypoxia (HCC) [J*06/24/2022 07/05/2022 Aftercare [Z51.89] 06/27/2022 NPH (normal pressure hydrocephalus) (HCC) [G91.*08/28/2022 KAISER (obstructive sleep apnea) [G47.33] 08/28/2022 History of pulmonary embolism [Z86.711] 08/28/2022 HLD (hyperlipidemia) [E78.5] 08/28/2022 Preop testing [Z01.818] 10/02/2022 Rheumatoid arthritis (HCC) [M06.9] 10/03/2022 S/P ventriculoperitoneal shunt [Z98.2] 11/13/2022 Encounter Status:Closed by LOS HAMILTON on 09/14/24 Normal [facility] ALLIED HEALTHon 09-09-2024 ALLIED HEALTH HNO ID: [id number] Author: VAN MOREIRA RT(R) Service: ? Author Type: Technologist Type: Allied Health Filed: 09/09/2024 14:25 Note Text: Radiology Service Progress Note PATIENT NAME: Christian Suggs DATE OF SERVICE: September 09, 2024 TIME: 2:24 PM PATIENT IDENTITY VERIFICATION COMPLETED USING TWO (2) IDENTIFIERS: Name and Date of confirmed by patient verbally. FALL SCREENING: Has the patient had 2 falls in the last year or 1 fall with injury or currently using an Ambulatory Assistive Device (Walker, Cane, Wheelchair, Crutches, etc.)? No PATIENT GENDER DATA: Assigned female at . status: : No status: N/A PATIENT RELEVANT IMPLANT DATA REVIEWED: Not Applicable PATIENT PRESENTS WITH AN IMPLANTABLE OR ATTACHED VERSE WRITER: No RADIOLOGY DEPARTMENT: CT; Exam(s) Completed: Brain and General X-ray: Exam(s) Completed: Chest X-Ray Abdomen X-Ray: Abdomen with Upright Spine X-Ray(s): Cervical AP / LAT Skull X-Ray PERIPHERAL IV DATA: Not applicable SIGNED BY: RT Tangela(R) September 09, 2024 2:24 PM Normal [facility] CT BRAIN WO IVCONon 09-09-19 CT BRAIN WO IVCON * * *Final Report* * * DATE OF EXAM: Sep 09 2024 1:40PM [facility] 0504 - CT BRAIN WO IVCON / PROCEDURE REASON: headache with shunt * * * * Physician Interpretation * * * * EXAMINATION: CT BRAIN WO IVCON CLINICAL HISTORY: Headache with shunt TECHNIQUE: Serial axial images without IV contrast were obtained from the vertex to the foramen magnum. MQ: CTBWO_3 CT Radiation dose: Integrated Dose-Length Product (DLP) for this visit = mGy*cm CT Dose Reduction Employed: COMPARISON: CT brain dated 06/14/2024 RESULT: Localizer images: No additional findings. Post-operative change: Similar postoperative findings from right transfrontal DESIGNER/WRITER shunt placement with tip terminating in the anterior left lateral ventricle. Similar surrounding encephalomalacia. Acute change: No evidence of an acute infarct or other acute parenchymal process. Hemorrhage: No evidence of acute intracranial hemorrhage. ECASS hemorrhagic transformation score: Not Applicable Mass Lesion / Mass Effect: There is no evidence of an intracranial mass or extraaxial fluid collection. No significant mass effect. Chronic change: Patchy foci of low attenuation are present within the supratentorial white matter, a nonspecific finding that most commonly represents moderate small vessel disease. Parenchyma: There is mild generalized volume loss. The brain parenchyma is otherwise within normal limits for age. Ventricles: Stable ventricular prominence. No significant change. Paranasal sinuses and skull base: The visualized paranasal sinuses are grossly clear. The skull base and imaged soft tissues are unremarkable. IMPRESSION: No significant change compared to 06/14/2024. Stable ventriculostomy catheter shunt positioning with unchanged mild ventricular prominence. Irrigation District Manager: [facility] Transcribe Date/Time: Sep 09 2024 1:43P Dictated by : VIRIDIANA GOLD MD This examination was interpreted and the report reviewed and electronically signed by: VIRIDIANA GOLD MD on Sep 09 2024 1:49PM EST [id number] Normal [facility] ED NOTEon 09-09-2024 ED NOTE HNO ID: [id number] Author: RUTH ANN ALVAREZ RN Service: ? Author Type: Registered Nurse Type: ED Notes Filed: 09/09/2024 12:47 Note Text: Pt arrives to ED bed 12 c/o intermittent left sided head and neck pain X 1 week. Denies pain at time of arrival States she has a shunt in the right side of her head and is concerned there may be a problem with it. Reports a fall due to dog approx 1.5 weeks ago, states fell backwards onto buttocks Denies injury Denies hitting head/LOC Pt awake and alert, no s/s of distress Normal [facility] ED PROV NOTEon 09-09-2024 ED PROV NOTE HNO ID: [id number] Author: MATEO HUMMEL MD Service: Emergency Medicine Author Type: Physician Type: ED Provider Notes Filed: 09/09/2024 16:03 Note Text: ED Provider Note Patient Name: Christian Suggs : 1945 SERVICE DATE: 2/20/25 History Patient presents with: Headache Neck Pain The patient is an 79-year-old female presenting today for concern for her DESIGNER/WRITER shunt. Patient states that she has just been feeling off and not like herself. According to triage she was complained of them of left-sided head and neck pain for the last week but states to me that it is more of a I am feeling off. She cannot describe it any better than that. When I ask about dizziness, lightheadedness, memory issues, headache, neck pain, nausea, vomiting, myalgias, she replies no to all of my review of systems. She is here because this has been going on now for a week and her had an appointment at the infusion center. While waiting on him she decided to come over and get her shunt checked out. She has a DESIGNER/WRITER shunt due to hydrocephalus. She did have a fall about a week and a half ago but states that she fell backward onto her butt and did not hit her head. She denies any direct trauma to the shunt. She denies any gait disturbance. PAST MEDICAL HISTORY Diagnosis Date - Allergic rhinitis - Arthritis Back - C. difficile enteritis - History of back surgery 07/21/2011 - HLD (hyperlipidemia) - Lymphocytic colitis - Melanoma (HCC) right thigh - NPH (normal pressure hydrocephalus) (HCC) - KAISER (obstructive sleep apnea) - Rotator cuff tear arthropathy of right shoulder 07/21/2012 - Urinary retention PAST SURGICAL HISTORY Procedure Laterality Date - ARTHRP KNE CONDYLEANDPLATU MEDIALANDLAT COMPARTMENTS Right 10/2014 - CARPAL TUNNEL 2009 bilateral - CHOLECYSTECTOMY HX N/A - COLONOSCOPY FLX DX W/COLLJ SPEC WHEN PFRMD 02/02/2016 - JOINT REPLACEMENT HX - ORTHOPEDICS SURGERY HX - PAST SURGICAL HISTORY OF 1999 bladder repair - PAST SURGICAL HISTORY OF 2007 melanoma removal FAMILY HISTORY Problem Relation Age of Onset - Heart Father late in life - Breast Cancer Maternal Aunt - Diabetes Other none - Colon Cancer Other none - Coronary Artery Disease Other none Social History Tobacco Use - Smoking status: Never - Smokeless tobacco: Never Vaping Use - Vaping status: Never Used Substance and Sexual Activity - Alcohol use: No - Drug use: No - Sexual activity: Not Currently Partners: Male ALLERGIES Allergen Reactions - Hydrocodone Bitartr* GI Upset - Mesalamine Myalgia - Oxycodone GI Upset - Flagyl [Nitroimidaz* Other: See Comments metal mouth - Scopolamine Other: See Comments Review of Systems Constitutional: Negative for activity change, appetite change, chills, fatigue and fever. HENT: Negative for congestion, ear pain, rhinorrhea and sore throat. Respiratory: Negative for cough and shortness of breath. Cardiovascular: Negative for chest pain and palpitations. Gastrointestinal: Negative for abdominal pain, diarrhea, nausea and vomiting. Genitourinary: Negative for dysuria, frequency and urgency. Musculoskeletal: Negative for arthralgias and myalgias. Skin: Negative for rash and wound. Neurological: Negative for dizziness and headaches. Psychiatric/Behavioral: Negative for self-injury and suicidal ideas. All other systems reviewed and are negative. Physical Exam Vitals [09/09/24 1239] BP Pulse Temp Temp src Resp SpO2 Weight Height 123/79 86 36.8 ?C (98.2 ?F) Temporal 16 95 % 78.9 kg (174 lb) -- Physical Exam Vitals and nursing note reviewed. Constitutional: General: She is not in acute distress. Appearance: She is well-developed. HENT: Head: Normocephalic and atraumatic. Nose: Nose normal. Mouth/Throat: Mouth: Mucous membranes are moist. Pharynx: Oropharynx is clear. Eyes: Extraocular Movements: Extraocular movements intact. Pupils: Pupils are equal, round, and reactive to light. Cardiovascular: Rate and Rhythm: Normal rate and regular rhythm. Heart sounds: Normal heart sounds. No murmur heard. No friction rub. No gallop. Pulmonary: Effort: Pulmonary effort is normal. No respiratory distress. Breath sounds: Normal breath sounds. No stridor. No wheezing, rhonchi or rales. Abdominal: General: Bowel sounds are normal. There is no distension. Palpations: Abdomen is soft. Tenderness: There is no abdominal tenderness. There is no guarding or rebound. Musculoskeletal: General: Normal range of motion. Cervical back: Normal range of motion and neck supple. Right lower leg: No edema. Left lower leg: No edema. Skin: General: Skin is warm and dry. Neurological: General: No focal deficit present. Mental Status: She is alert and oriented to person, place, and time. GCS: GCS eye subscore is 4. GCS verbal subscore is 5. GCS motor subscore is 6. Cranial Nerves: C (more content not included)... Normal [facility] XR ABD 2V SUPINE W UPR/DECUB /CTLon 09-09-2024 XR ABD 2V SUPINE W UPR/DECUB/CTL * * *Final Report* * * DATE OF EXAM: Sep 09 2024 2:16PM LDX 5356 - XR ABD 2V SUPINE W UPR/DECUB/CTL / PROCEDURE REASON: Other * * * * Physician Interpretation * * * * SKULL, FRONTAL AND LATERAL: SOFT TISSUE NECK, FRONTAL AND LATERAL: CHEST, FRONTAL: ABDOMEN, FRONTAL ERECT AND SUPINE: CLINICAL INDICATION: Headache. DESIGNER/WRITER shunt. COMPARISON: CT brain same day, chest radiograph 07/12/2024, chest radiographs 06/14/2024, and DESIGNER/WRITER shunt series 06/14/2024. FINDINGS (COMBINED): Right frontal approach ventriculostomy catheter terminating just left of midline. The DESIGNER/WRITER shunt courses through the right side of the neck and chest, midline upper abdomen looped over the right abdomen terminating over the midline lower abdomen. No shunt discontinuity or kinking. No pulmonary consolidation or pleural effusion. Nonobstructive bowel gas pattern. Pre-existing right humeral head suture anchor, L2-S1 fusion hardware and right total hip arthroplasty. IMPRESSION (COMBINED): Shunt catheter appears intact. Additional findings as described above. Irrigation District Manager[facility] Transcribe Date/Time: Sep 09 2024 2:33P Dictated by : INES DOMINGUEZ MD This examination was interpreted and the report reviewed and electronically signed by: INES DOMINGUEZ MD on Sep 09 2024 2:42PM EST [id number] Normal [facility] XR CHEST 1V FRONTALon 2024 XR CHEST 1V FRONTAL * * *Final Report* * * DATE OF EXAM: Sep 09 2024 2:16PM LDX 5290 - XR CHEST 1V FRONTAL / PROCEDURE REASON: Other * * * * Physician Interpretation * * * * SKULL, FRONTAL AND LATERAL: SOFT TISSUE NECK, FRONTAL AND LATERAL: CHEST, FRONTAL: ABDOMEN, FRONTAL ERECT AND SUPINE: CLINICAL INDICATION: Headache. DESIGNER/WRITER shunt. COMPARISON: CT brain same day, chest radiograph 07/12/2024, chest radiographs 06/14/2024, and DESIGNER/WRITER shunt series 06/14/2024. FINDINGS (COMBINED): Right frontal approach ventriculostomy catheter terminating just left of midline. The DESIGNER/WRITER shunt courses through the right side of the neck and chest, midline upper abdomen looped over the right abdomen terminating over the midline lower abdomen. No shunt discontinuity or kinking. No pulmonary consolidation or pleural effusion. Nonobstructive bowel gas pattern. Pre-existing right humeral head suture anchor, L2-S1 fusion hardware and right total hip arthroplasty. IMPRESSION (COMBINED): Shunt catheter appears intact. Additional findings as described above. Irrigation District Manager: [facility] Transcribe Date/Time: Sep 09 2024 2:33P Dictated by : INES DOMINGUEZ MD This examination was interpreted and the report reviewed and electronically signed by: INES DOMINGUEZ MD on Sep 09 2024 2:42PM EST [id number] Normal [facility] XR NECK SOFT TISSUE 2V AP/LA Ton 09-09-2024 XR NECK SOFT TISSUE 2V AP/LAT * * *Final Report* * * DATE OF EXAM: Sep 09 2024 2:16PM LDX 5238 - XR NECK SOFT TISSUE 2V AP/LAT / PROCEDURE REASON: Other * * * * Physician Interpretation * * * * SKULL, FRONTAL AND LATERAL: SOFT TISSUE NECK, FRONTAL AND LATERAL: CHEST, FRONTAL: ABDOMEN, FRONTAL ERECT AND SUPINE: CLINICAL INDICATION: Headache. DESIGNER/WRITER shunt. COMPARISON: CT brain same day, chest radiograph 07/12/2024, chest radiographs 06/14/2024, and DESIGNER/WRITER shunt series 06/14/2024. FINDINGS (COMBINED): Right frontal approach ventriculostomy catheter terminating just left of midline. The DESIGNER/WRITER shunt courses through the right side of the neck and chest, midline upper abdomen looped over the right abdomen terminating over the midline lower abdomen. No shunt discontinuity or kinking. No pulmonary consolidation or pleural effusion. Nonobstructive bowel gas pattern. Pre-existing right humeral head suture anchor, L2-S1 fusion hardware and right total hip arthroplasty. IMPRESSION (COMBINED): Shunt catheter appears intact. Additional findings as described above. Irrigation District Manager: [facility] Transcribe Date/Time: Sep 09 2024 2:33P Dictated by : INES DOMINGUEZ MD This examination was interpreted and the report reviewed and electronically signed by: INES DOMINGUEZ MD on Sep 09 2024 2:42PM EST [id number] Normal [facility] XR SKULL 2V AP/LATon 025 XR SKULL 2V AP/LAT * * *Final Report* * * DATE OF EXAM: Sep 09 2024 2:16PM LDX 5259 - XR SKULL 2V AP/LAT / PROCEDURE REASON: Other * * * * Physician Interpretation * * * * SKULL, FRONTAL AND LATERAL: SOFT TISSUE NECK, FRONTAL AND LATERAL: CHEST, FRONTAL: ABDOMEN, FRONTAL ERECT AND SUPINE: CLINICAL INDICATION: Headache. DESIGNER/WRITER shunt. COMPARISON: CT brain same day, chest radiograph 07/12/2024, chest radiographs 06/14/2024, and DESIGNER/WRITER shunt series 06/14/2024. FINDINGS (COMBINED): Right frontal approach ventriculostomy catheter terminating just left of midline. The DESIGNER/WRITER shunt courses through the right side of the neck and chest, midline upper abdomen looped over the right abdomen terminating over the midline lower abdomen. No shunt discontinuity or kinking. No pulmonary consolidation or pleural effusion. Nonobstructive bowel gas pattern. Pre-existing right humeral head suture anchor, L2-S1 fusion hardware and right total hip arthroplasty. IMPRESSION (COMBINED): Shunt catheter appears intact. Additional findings as described above. Irrigation District Manager[facility] Transcribe Date/Time: Sep 09 2024 2:33P Dictated by : INES DOMINGUEZ MD This examination was interpreted and the report reviewed and electronically signed by: INES DOMINGUEZ MD on Sep 09 2024 2:42PM EST [id number] Normal [facility] ALLIED HEALTHon 07-12-2024 ALLIED HEALTH HNO ID: [id number] Author: AMBER KRUGER RT(R) Service: ? Author Type: Technologist Type: Allied Health Filed: 07/12/2024 17:08 Note Text: Radiology Service Progress Note PATIENT NAME: Christian Suggs DATE OF SERVICE: July 12, 2024 TIME: 5:07 PM PATIENT IDENTITY VERIFICATION COMPLETED USING TWO (2) IDENTIFIERS: Name and Date of confirmed by patient verbally. FALL SCREENING: Has the patient had 2 falls in the last year or 1 fall with injury or currently using an Ambulatory Assistive Device (Walker, Cane, Wheelchair, Crutches, etc.)? Emergency Room Patient: Screened in ED PATIENT GENDER DATA: Female. status: : No status: NO. PATIENT RELEVANT IMPLANT DATA REVIEWED: Not Applicable PATIENT PRESENTS WITH AN IMPLANTABLE OR ATTACHED VERSE WRITER: No RADIOLOGY DEPARTMENT: General X-ray: Exam(s) Completed: Chest X-Ray PERIPHERAL IV DATA: Not applicable SIGNED BY: Amber Kruger, RT(R) July 12, 2024 5:07 PM Normal [facility] Basic metabolic 2000 panelon 07-12-2024 Anion gap [Moles/Vol] 10 mmol/L Normal 8-15 [facility] Comment on above: Order Comment: Speci men Type: BLOOD SPECIMENOrdering Facility: [facility] Address: [address] [place] [address] Performed By: #### 2 4321-2, 55291-9 ####[facility] [place] LABCLIA [id number] [place] [address] [place] Calcium [Mass/Vol] 9.5 mg/dL Normal 8.5-10.2 [facility] Comment on above: Order Comment: Speci men Type: BLOOD SPECIMENOrdering Facility: [facility] Address: [address] [place] [address] Performed By: #### 2 4321-2, 54986-4 ####[facility] [place] LABCLIA [id number] [place] [address] [place] Chloride [Moles/Vol] 103 mmol/L Normal 98-107 [facility] Comment on above: Order Comment: Speci men Type: BLOOD SPECIMENOrdering Facility: [facility] Address: [address] [place] [address] Performed By: #### 2 4321-2, 60734-2 ####[facility] [place] LABCLIA [id number] [place] [address] [place] CO2 [Moles/Vol] 27 mmol/L Normal 22-30 [facility] Comment on above: Order Comment: Speci men Type: BLOOD SPECIMENOrdering Facility: [facility] Address: [address] [place] [address] Performed By: #### 2 4321-2, 99742-7 ####[facility] LABCLIA [id number] [place] [address] [place] [facility] Creatinine [Mass/Vol] 0.75 mg/dL Normal 0.58-0.96 [facility] Comment on above: Order Comment: Fredy dowd Type: BLOOD SPECIMENOrdering Facility: [facility] Address: [address] [place] [address] Performed By: #### 2 4321-2, 37432-0 ####[facility] LABCLIA [id number] [place] [address] [facility] Creatinine and Glomerular filtration rate.predicted panel (S/P/Bld) 81 mL/min/1.73m??? Normal >=60 [facility] Comment on above: Order Comment: Fredy dowd Type: BLOOD SPECIMENOrdering Facility: [facility] Address: [address] [place] [address] Result Comment: Anna mated Glomerular Filtration Rate (eGFR) is calculated using the 2020 CKD-EPI creatinine equation. This equation utilizes serum creatinine, sex, and age as parameters. The creatinine assay has traceable calibration to isotope dilution-mass spectrometry. Refer to KDIGO guidelines for clinical interpretation. In patients with unstable renal function, e.g. those with acute kidney injury, the eGFR may not accurately reflect actual GFR. Performed By: #### 2 4321-2, 46390-5 ####[facility] LABIA [id number] [place] [address] [place] [facility] Glucose [Mass/Vol] 94 mg/dL Normal 74-99 [facility] Comment on above: Order Comment: Fredy dowd Type: BLOOD SPECIMENOrdering Facility: [facility] Address: [address] [place] [address] Result Comment: The [place] [employer] (ADA) provides guidance for cutoff values for fasting glucose and random glucose. The ADA defines fasting as no caloric intake for at least 8 hours. Fasting plasma glucose results between 100 to 125 mg/dL indicate increased risk for diabetes (prediabetes). Fasting plasma glucose results greater than or equal to 126 mg/dL meet the criteria for diagnosis of diabetes. In the absence of unequivocal hyperglycemia, results should be confirmed by repeat testing. In a patient with classic symptoms of hyperglycemia or hyperglycemic crisis, random plasma glucose results greater than or equal to 200 mg/dL meet the criteria for diagnosis of diabetes. Reference: Standards of Medical Care in Diabetes 2016, [place] [employer]. Diabetes Care. 2016.39(Suppl 1). Performed By: #### 2 4321-2, 12679-5 ####[facility] LABCLIA [id number] [place], [place] [address] [place] [address] [place] OF [facility] Potassium [Moles/Vol] 4.8 mmol/L Normal 3.7-5.1 [facility] Comment on above: Order Comment: Fredy dowd Type: BLOOD SPECIMENOrdering Facility: [facility] Address: [address] [place] [address] Performed By: #### 2 4321-2, 74819-3 ####[facility] LABCLIA [id number] [address] Sodium [Moles/Vol] 140 mmol/L Normal 136-144 [facility] Comment on above: Order Comment: Fredy dowd Type: BLOOD SPECIMENOrdering Facility: [facility] Address: [address] [place] [address] Performed By: #### 2 4321-2, 17870-4 ####[facility] LABCLIA [id number] [address] Urea nitrogen [Mass/Vol] 14 mg/dL Normal 7-21 [facility] Comment on above: Order Comment: Fredy dowd Type: BLOOD SPECIMENOrdering Facility: [facility] Address: [address] [place] [address] Performed By: #### 2 4321-2, 92777-7 ####[facility] LABCLIA [id number] [place] [address] [place] CBC W Auto Differential pane l (Bld)on 07-12-2024 Basophils (Bld) [#/Vol] 0.03 10*3/uL Normal <0.11 [facility] Comment on above: Order Comment: Speci men Type: BLOOD SPECIMENOrdering Facility: [facility] Address: [address] [place] [address] Performed By: #### 5 7021-8 ####[facility] [place] LABCLIA [id number] [facility] [place] [address] [place] Basophils/100 WBC (Bld) 0.5 % Normal [facility] Comment on above: Order Comment: Speci men Type: BLOOD SPECIMENOrdering Facility: [facility] Address: [address] [place] [address] Performed By: #### 5 7021-8 ####[facility] LABCLIA [id number] [place] [address] [facility] Differential cell count method Nom (Bld) Auto Normal [facility] Comment on above: Order Comment: Speci men Type: BLOOD SPECIMENOrdering Facility: [facility] Address: [address] [place] [address] Performed By: #### 5 7021-8 ####[facility] LABCLIA [id number] [place] [address] [facility] Eosinophils (Bld) [#/Vol] 0.12 10*3/uL Normal <0.46 [facility] Comment on above: Order Comment: Speci men Type: BLOOD SPECIMENOrdering Facility: [facility] Address: [address] [place] [address] Performed By: #### 5 7021-8 ####[facility] [place] LABCLIA [id number] [place] [address] [facility] Eosinophils/100 WBC (Bld) 2.0 % Normal [facility] Comment on above: Order Comment: Speci men Type: BLOOD SPECIMENOrdering Facility: [facility] Address: [address] [place] [address] Performed By: #### 5 7021-8 ####[facility] [place] LABCLIA [id number] [facility] [place] [address] [place] Erythrocyte distribution width (RBC) [Ratio] 14.7 % Normal 11.5-15.0 [facility] Comment on above: Order Comment: Speci men Type: BLOOD SPECIMENOrdering Facility: [facility] Address: [address] [place] [address] Performed By: #### 5 7021-8 ####[facility] [place] LABCLIA [id number] [place] [address] [place] Hematocrit (Bld) [Volume fraction] 41.7 % Normal 36.0-46.0 [facility] Comment on above: Order Comment: Speci men Type: BLOOD SPECIMENOrdering Facility: [facility] Address: [address] [place] [address] Performed By: #### 5 7021-8 ####[facility] [place] LABCLIA [id number] [place] [address] [place] Hemoglobin (Bld) [Mass/Vol] 13.5 g/dL Normal 11.5-15.5 [facility] Comment on above: Order Comment: Speci men Type: BLOOD SPECIMENOrdering Facility: [facility] Address: [address] [place] [address] Performed By: #### 5 7021-8 ####[facility] [place] LABCLIA [id number] [place] [address] [place] Immature granulocytes (Bld) [#/Vol] 10*3/uL Normal <0.10 [facility] Comment on above: Order Comment: Speci men Type: BLOOD SPECIMENOrdering Facility: [facility] Address: [address] [place] [address] Performed By: #### 5 7021-8 ####[facility] [place] LABCLIA [id number] [place] [address] [facility] [place] Immature granulocytes/100 WBC (Bld) 0.2 % Normal [facility] Comment on above: Order Comment: Speci men Type: BLOOD SPECIMENOrdering Facility: [facility] Address: [address] [place] [address] Performed By: #### 5 7021-8 ####[facility] LABCLIA [id number] [place] [address] [place] Lymphocytes (Bld) [#/Vol] 1.43 10*3/uL Normal 1.00-4.00 [facility] Comment on above: Order Comment: Speci men Type: BLOOD SPECIMENOrdering Facility: [facility] Address: [address] [place] [address] Performed By: #### 5 7021-8 ####[facility] LABCLIA [id number] [place] [id number] [facility] Lymphocytes/100 WBC (Bld) 23.8 % Normal [facility] Comment on above: Order Comment: Speci men Type: BLOOD SPECIMENOrdering Facility: [facility] Address: [address] [place] [address] Performed By: #### 5 7021-8 ####[facility] LABCLIA [id number] [place] [address] [facility] MCH (RBC) [Entitic mass] 29.2 pg Normal 26.0-34.0 [facility] Comment on above: Order Comment: Speci men Type: BLOOD SPECIMENOrdering Facility: [facility] Address: [address] [place] [address] Performed By: #### 5 7021-8 ####[facility] LABCLIA [id number] [place] [address] [place] MCHC (RBC) [Mass/Vol] 32.4 g/dL Normal 30.5-36.0 [facility] Comment on above: Order Comment: Speci men Type: BLOOD SPECIMENOrdering Facility: [facility] Address: [address] [place] [address] Performed By: #### 5 7021-8 ####[facility] LABCLIA [id number] [place] [address] [facility] [place] MCV (RBC) [Entitic vol] 90.1 fL Normal 80.0-100.0 [facility] Comment on above: Order Comment: Speci men Type: BLOOD SPECIMENOrdering Facility: [facility] Address: [address] [place] [address] Performed By: #### 5 7021-8 ####[facility] [place] LABCLIA [id number] [facility] [place] [address] [place] Monocytes (Bld) [#/Vol] 0.37 10*3/uL Normal <0.87 [facility] Comment on above: Order Comment: Speci men Type: BLOOD SPECIMENOrdering Facility: [facility] Address: [address] [place] [address] Performed By: #### 5 7021-8 ####[facility] [place] LABCLIA [id number] [facility] [place] [address] [place] Monocytes/100 WBC (Bld) 6.1 % Normal A [facility] Comment on above: Order Comment: Speci men Type: BLOOD SPECIMENOrdering Facility: [facility] Address: [address] [place] [address] Performed By: #### 5 7021-8 ####[facility] [place] LABCLIA [id number] [facility] [place] [address] [place] Neutrophils (Bld) [#/Vol] 4.06 10*3/uL Normal 1.45-7.50 [facility] Comment on above: Order Comment: Speci men Type: BLOOD SPECIMENOrdering Facility: [facility] Address: [address] [place] [address] Performed By: #### 5 7021-8 ####[facility] [place] LABCLIA [id number] [place] [address] [place] Neutrophils/100 WBC (Bld) 67.4 % Normal [facility] Comment on above: Order Comment: Speci men Type: BLOOD SPECIMENOrdering Facility: [facility] Address: [address] [place] [address] Performed By: #### 5 7021-8 ####[facility] [place] LABCLIA [id number] [place] [address] [place] Nucleated RBC (Bld) [#/Vol] Normal [facility] Comment on above: Order Comment: Speci men Type: BLOOD SPECIMENOrdering Facility: [facility] Address: [address] [place] [address] Performed By: #### 5 7021-8 ####[facility] [place] LABCLIA [id number] [place] [address] [place] Nucleated RBC/100 WBC (Bld) [Ratio] Normal [facility] Comment on above: Order Comment: Speci men Type: BLOOD SPECIMENOrdering Facility: [facility] Address: [address] [place] [address] Performed By: #### 5 7021-8 ####[facility] LABCLIA [id number] [facility] [place] [address] [place] Platelet mean volume (Bld) [Entitic vol] Normal [facility] Comment on above: Order Comment: Speci men Type: BLOOD SPECIMENOrdering Facility: [facility] Address: [address] [place] [address] Result Comment: Unab le to Report. Performed By: #### 5 7021-8 ####[facility] LABCLIA [id number] [facility] [place] [address] [place] Platelets (Bld) [#/Vol] 187 10*3/uL Normal 150-400 [facility] Comment on above: Order Comment: Speci men Type: BLOOD SPECIMENOrdering Facility: [facility] Address: [address] [place] [address] Result Comment: No c lot detected.Platelet count confirmed by manual review of peripheral blood smear. Performed By: #### 5 7021-8 ####[facility] [place] LABCLIA [id number] [facility] [place] [address] [place] RBC (Bld) [#/Vol] 4.63 10*6/uL Normal 3.90-5.20 [facility] Comment on above: Order Comment: Speci men Type: BLOOD SPECIMENOrdering Facility: [facility] Address: [address] [place], [place] [address] Performed By: #### 5 7021-8 ####[facility] LABCLIA [id number] [place] [address] [facility] WBC (Bld) [#/Vol] 6.02 10*3/uL Normal 3.70-11.00 [facility] Comment on above: Order Comment: Speci men Type: BLOOD SPECIMENOrdering Facility: [facility] Address: [address] [place], [place] [address] Performed By: #### 5 7021-8 ####[facility] LABCLIA [id number] [place] [address] [facility] ECG COMPLETEon 07-12-2024 ECG COMPLETE Ventricular Rate : 6 7 BPM Atrial Rate : 67 BPM P-R Interval : 166 ms QRS Duration : 74 ms Q-T Interval : 402 ms QTC Calculation(Bazett) : 424 ms Calculated P State Line : 54 degrees Calculated R State Line : -10 degrees Calculated T [place] Line : 30 degrees NORMAL SINUS RHYTHM INFERIOR INFARCT , AGE UNDETERMINED ABNORMAL ECG NO PREVIOUS ECGS AVAILABLE Confirmed by MD FATIMA VINAYAK ([id number]) on 07/14/2024 12:45:40 PM NAME : CHRISTIAN SUGGS PID : [id number] : 1945 Gender : Female Race : ORD : [id number] Procedure Date : Jul 12 2024 15:54:01 Edit Date : Jul 14 2024 12:45:41 Diagnosis: NORMAL SINUS RHYTHM INFERIOR INFARCT , AGE UNDETERMINED ABNORMAL ECG NO PREVIOUS ECGS AVAILABLE Confirmed by MD FATIMA VINAYAK ([id number]) on 07/14/2024 12:45:40 PM Test Reason : Chest Pain Location : 191 : [facility] ED Overread By : MD FATIMA VINAYAK Edited By : MD FATIMA VINAYAK Referred By : , Acquired by : YANIRA HULL [facility] ED NOTEon 07-12-2024 ED NOTE HNO ID: [id number] Author: OMER SHELL RN Service: ? Author Type: Registered Nurse Type: ED Notes Filed: 07/13/2024 11:23 Note Text: Patient Call Back Information How are you doing ? better Did we appropriately manage your pain? Yes Did you understand your discharge instructions? Yes Did you get your prescriptions filled? Were you able to make a follow-up appointment with your physician? No Were you comfortable during your stay here? Yes Did a member of the ER nursing team round on you during your visit? Yes You will receive a patient satisfaction survey in the mail in the nest 2 weeks, please take the time to fill out the survey as your input from your ER visit is very important to us. Yes Can we do anything else to help you? No Normal [facility] ED NOTE HNO ID: [id number] Author: DARRIAN MYERS RN Service: ? Author Type: Registered Nurse Type: ED Notes Filed: 07/12/2024 18:35 Note Text: D/c instructions reviewed with pt and pt's daughter who verbalized understanding. Pt's vss and left ED ual and in stable condition. Normal [facility] ED NOTE HNO ID: [id number] Author: DARRIAN MYERS RN Service: ? Author Type: Registered Nurse Type: ED Notes Filed: 07/12/2024 14:57 Note Text: Pt comes to ED c/o bilateral leg swelling for one month. Pt states that the swelling progressively gets worse throughout the day. Denies pain. States they feel heavy and weakness. She is AANDOx3, vss. Will continue to monitor. Normal [facility] ED PROV NOTEon 07-12-2024 ED PROV NOTE HNO ID: [id number] Author: MONICA HOOKER MD Service: Emergency Medicine Author Type: Physician Type: ED Provider Notes Filed: 07/12/2024 18:33 Note Text: ED Provider Note Patient Name: Christian Suggs : 1945 SERVICE DATE: 07/12/24 History Patient presents with: Edema Christian Suggs is a 78 year old female with history of multiple chronic medical problems who presents with Edema. Patient took nothing for this prior to arrival. - Symptoms began 3 weeks prior to arrival. - Severity: mild - Timing: constant - Quality: Bilateral edema to lower extremities - Edema is exacerbated by standing. - Edema is not exacerbated by elevation. - Symptoms are associated with nothing. - Symptoms are not associated with chest pain and shortness of breath. - Improved by nothing. - Not improved by rest Patient has been noticing edema in the lower extremities for about a month states she has never had this problem before no respiratory symptoms. No new medications. No recent travel.. PAST MEDICAL HISTORY Diagnosis Date - Allergic rhinitis - Arthritis Back - C. difficile enteritis - History of back surgery 07/21/2011 - HLD (hyperlipidemia) - Lymphocytic colitis - Melanoma (HCC) right thigh - NPH (normal pressure hydrocephalus) (HCC) - [facility] (obstructive sleep apnea) - Rotator cuff tear arthropathy of right shoulder 07/21/2012 - Urinary retention PAST SURGICAL HISTORY Procedure Laterality Date - ARTHRP KNE CONDYLEANDPLATU MEDIALANDLAT COMPARTMENTS Right 10/2014 - CARPAL TUNNEL 2009 bilateral - CHOLECYSTECTOMY HX N/A - COLONOSCOPY FLX DX W/COLLJ SPEC WHEN PFRMD 02/02/2016 - JOINT REPLACEMENT HX - ORTHOPEDICS SURGERY HX - PAST SURGICAL HISTORY OF 1999 bladder repair - PAST SURGICAL HISTORY OF 2007 melanoma removal FAMILY HISTORY Problem Relation Age of Onset - Heart Father late in life - Breast Cancer Maternal Aunt - Diabetes Other none - Colon Cancer Other none - Coronary Artery Disease Other none Social History Tobacco Use - Smoking status: Never - Smokeless tobacco: Never Vaping Use - Vaping status: Never Used Substance and Sexual Activity - Alcohol use: No - Drug use: No - Sexual activity: Not Currently Partners: Male ALLERGIES Allergen Reactions - Hydrocodone Bitartr* GI Upset - Mesalamine Myalgia - Oxycodone GI Upset - Flagyl [Nitroimidaz* Other: See Comments metal mouth - Scopolamine Other: See Comments Review of Systems Constitutional: Negative for chills and fever. Respiratory: Negative for chest tightness and shortness of breath. Gastrointestinal: Negative for nausea and vomiting. Musculoskeletal: Negative for myalgias and neck pain. Skin: Negative for rash and wound. Allergic/Immunologic: Negative for environmental allergies, food allergies and immunocompromised state. Psychiatric/Behavioral: Negative for confusion. The patient is nervous/anxious. Physical Exam Vitals [07/12/24 1453] BP Pulse Temp Temp src Resp SpO2 Weight Height 129/74 77 36.3 ?C (97.4 ?F) Temporal 20 99 % 72.6 kg (160 lb) -- Physical Exam Vitals and nursing note reviewed. Constitutional: General: She is not in acute distress. Appearance: Normal appearance. She is not ill-appearing, toxic-appearing or diaphoretic. HENT: Head: Normocephalic and atraumatic. Cardiovascular: Rate and Rhythm: Normal rate and regular rhythm. Pulmonary: Effort: Pulmonary effort is normal. No respiratory distress. Abdominal: General: There is no distension. Tenderness: There is no abdominal tenderness. Musculoskeletal: General: Swelling present. No tenderness. Right lower leg: Edema present. Left lower leg: Edema present. Skin: General: Skin is warm and dry. Capillary Refill: Capillary refill takes less than 2 seconds. Findings: No rash. Neurological: General: No focal deficit present. Mental Status: She is alert and oriented to person, place, and time. Psychiatric: Mood and Affect: Mood normal. Behavior: Behavior normal. Thought Content: Thought content normal. Judgment: Judgment normal. Diagnostic Testing ED Labs Ordered and Reviewed - No data to display Procedures ED Course / Clinical Impression Clinical Impressions as of 07/12/24 1833 Dependent edema MDM / Disposition / Plan Bilateral lower extremity edema states is never happened in the past she does admit to being on her feet quite a bit does not use compression socks. Some improvement with the edema when she elevates. Patient is concerned this represents systemic illness she has had the symptoms for about a month. I checked ultrasound chest x-ray lab work and EKG. No acute changes on labs ultrasound chest x-ray or EKG. Recommend elevation and compression stockings no indication for transfer or admission recommend follow-up to PCP. History and Record Review External record(s) reviewed: see ED Course. (more content not included)... Normal [facility] HIGH SENSITIVITY TROPONIN To n 07-12-2024 Troponin T.cardiac High sensitivity method [Mass/Vol] 23 ng/L High <12 [facility] Comment on above: Order Comment: Speci men Type: BLOOD SPECIMENOrdering Facility: [facility] Address: [address] [place] [place] [address] Performed By: #### H STNT ####[facility] LABCLIA [id number] [place] [address] [place] Troponin T.cardiac High sensitivity method [Mass/Vol] 24 ng/L High <12 [facility] Comment on above: Order Comment: Speci men Type: BLOOD SPECIMENOrdering Facility: [facility] Address: [address] [place] [address] Performed By: #### H STNT ####[facility] LABCLIA [id number] [place] [address] [facility] NT-proBNP [facility] 07-12 Natriuretic peptide.B prohormone N-Terminal [Mass/Vol] 253 pg/mL Normal <450 [facility] Comment on above: Order Comment: Speci men Type: BLOOD SPECIMENOrdering Facility: [facility] Address: [address] [place] [address] Performed By: #### 2 4321-2, 47594-2 ####[facility] LABCLIA [id number] [place] [id number] [facility] US DVT LOWER BILon 4 US DVT LOWER JACLYN * * *Final Report* * * DATE OF EXAM: Jul 12 2024 6:00PM LDU 1005 - US DVT LOWER JACLYN / PROCEDURE REASON: Leg deep vein thrombosis (DVT) suspected * * * * Physician Interpretation * * * * EXAMINATION: RIGHT AND LEFT LOWER EXTREMITY DEEP VENOUS ULTRASOUND WITH DOPPLER IMAGING CLINICAL HISTORY: Lower extremity swelling TECHNIQUE: Grayscale with compression maneuvers, color Doppler and spectral Doppler imaging of the right and left proximal deep veins was performed. Grayscale with compression maneuvers of the right and left peroneal and posterior tibial veins was performed. The right and left great and small saphenous veins were evaluated at their insertion to the deep system. Images were obtained and stored in a permanent archive. MQ: [id number] COMPARISON: None RESULT: RIGHT LOWER EXTREMITY PROXIMAL DEEP VEINS Distal External Iliac, Common Femoral and Proximal Profunda Veins: Compression: Normal Doppler: Normal, spontaneous respirophasic flow. Normal response to augmentation. Femoral vein: Compression: Normal Doppler: Normal, spontaneous respirophasic flow. Normal response to augmentation. Popliteal vein: Compression: Normal Doppler: Normal, spontaneous respirophasic flow. Normal response to augmentation. CALF DEEP VEINS Peroneal veins: Normal compression. Posterior tibial veins: Normal compression. Gastrocnemius and Soleal veins: Not imaged. SUPERFICIAL VEINS Great saphenous: Patent and compressible at insertion into common femoral vein; not otherwise assessed. Small Saphenous: Patent and compressible in the proximal calf, not otherwise assessed. LEFT LOWER EXTREMITY PROXIMAL DEEP VEINS Distal External Iliac, Common Femoral and Proximal Profunda Veins: Compression: Normal Doppler: Normal, spontaneous respirophasic flow. Normal response to augmentation. Femoral vein: Compression: Normal Doppler: Normal, spontaneous respirophasic flow. Normal response to augmentation. Popliteal vein: Compression: Normal Doppler: Normal, spontaneous respirophasic flow. Normal response to augmentation. CALF DEEP VEINS Peroneal veins: Normal compression. Posterior tibial veins: Normal compression. Gastrocnemius and Soleal veins: Not imaged. SUPERFICIAL VEINS Great saphenous: Patent and compressible at insertion into common femoral vein; not otherwise assessed. Small Saphenous: Patent and compressible in the proximal calf, not otherwise assessed. IMPRESSION: Negative study for proximal DVT in the left and right lower extremities. Negative study for calf DVT in the left and right lower extremities. Negative study for superficial thrombophlebitis in the imaged segments of the left and right lower extremities. Irrigation District Manager: [facility] Transcribe Date/Time: Jul 12 2024 6:00P Dictated by : PETRA SIMENTAL MD This examination was interpreted and the report reviewed and electronically signed by: PETRA SIMENTAL MD on Jul 12 2024 6:01PM EST [id number] Normal [facility] Urinalysis complete panel (U )on 07-12-2024 Bilirubin Ql (U) Negative Normal Negative [facility] Comment on above: Order Comment: Speci men Type: URINE SPECIMENOrdering Facility: [facility] Address: [address] [place] [address] Performed By: #### 2 4356-8 ####[facility] LABCLIA [id number] [place] [address] [place] Clarity (Unsp spec) Clear Normal Clear [facility] Comment on above: Order Comment: Speci men Type: URINE SPECIMENOrdering Facility: [facility] Address: [address] [place] [address] Performed By: #### 2 4356-8 ####[facility] LABCLIA [id number] [facility] [place] [address] [place] Color (U) Yellow Normal Yellow [facility] Comment on above: Order Comment: Speci men Type: URINE SPECIMENOrdering Facility: [facility] Address: [address] [place] [address] Performed By: #### 2 4356-8 ####[facility] LABCLIA [id number] [facility] [place] [address] [facility] Glucose Test strip (U) [Mass/Vol] Negative Normal Negative [facility] Comment on above: Order Comment: Speci men Type: URINE SPECIMENOrdering Facility: [facility] Address: [address] [place] [address] Performed By: #### 2 4356-8 ####[facility] LABCLIA [id number] [place] [address] [facility] Hemoglobin Ql (U) Negative Normal Negative [facility] Comment on above: Order Comment: Speci men Type: URINE SPECIMENOrdering Facility: [facility] Address: [address] [place] [address] Performed By: #### 2 4356-8 ####[facility] LABCLIA [id number] [place] [address] [place] Ketones Ql (U) Negative Normal Negative [facility] Comment on above: Order Comment: Speci men Type: URINE SPECIMENOrdering Facility: [facility] Address: [address] [place] [address] Performed By: #### 2 4356-8 ####[facility] LABCLIA [id number] [facility] [place] [address] [facility] Leukocyte esterase Test strip Ql (U) Negative Normal Negative [facility] Comment on above: Order Comment: Speci men Type: URINE SPECIMENOrdering Facility: [facility] Address: [address] [place] [address] Performed By: #### 2 4356-8 ####[facility] LABCLIA [id number] [place] [address] [place] Nitrite Ql (U) Negative Normal Negative [facility] Comment on above: Order Comment: Speci men Type: URINE SPECIMENOrdering Facility: [facility] Address: [address] [place] [address] Performed By: #### 2 4356-8 ####[facility] LABCLIA [id number] [place] [address] [place] pH (U) 7.0 [pH] Normal 5.0-8.0 [facility] Comment on above: Order Comment: Speci men Type: URINE SPECIMENOrdering Facility: [facility] Address: [address] [place] [address] Performed By: #### 2 4356-8 ####[facility] LABCLIA [id number] [place] [address] [facility] Protein (U) [Mass/Vol] Negative Normal Negative [facility] Comment on above: Order Comment: Speci men Type: URINE SPECIMENOrdering Facility: [facility] Address: [address] [place] [address] Performed By: #### 2 4356-8 ####[facility] LABCLIA [id number] [place] [address] [place] RBC LM.HPF (Urine sed) [#/Area] 0-3 /HPF Normal 0-3 /HPF [facility] Comment on above: Order Comment: Speci men Type: URINE SPECIMENOrdering Facility: [facility] Address: [address] [place] [address] Performed By: #### 2 4356-8 ####[facility] LABCLIA [id number] [place] [address] [facility] Specific gravity (U) [Rel density] 1.020 Normal 1.005-1.030 [facility] Comment on above: Order Comment: Speci men Type: URINE SPECIMENOrdering Facility: [facility] Address: [address] [place] [address] Performed By: #### 2 4356-8 ####[facility] LABCLIA [id number] [place] [address] [facility] Urobilinogen Ql (U) 0.2 EU/dL Normal 0.2-1.0 EU/dL [facility] Comment on above: Order Comment: Speci men Type: URINE SPECIMENOrdering Facility: [facility] Address: [address] [place] [address] Performed By: #### 2 4356-8 ####[facility] LABCLIA [id number] [place] [address] [facility] WBC LM.HPF (Urine sed) [#/Area] 0-5 /HPF Normal 0-5 /HPF [facility] Comment on above: Order Comment: Speci men Type: URINE SPECIMENOrdering Facility: [facility] Address: [address] [place] [address] Performed By: #### 2 4356-8 ####[facility] LABCLIA [id number] [place] [address] [facility] XR CHEST 1V FRONTALon 2023 XR CHEST 1V FRONTAL * * *Final Report* * * DATE OF EXAM: Jul 12 2024 5:06PM LDX 5290 - XR CHEST 1V FRONTAL / PROCEDURE REASON: Shortness of breath * * * * Physician Interpretation * * * * EXAMINATION: XR CHEST 1V FRONTAL Clinical History: Bilateral leg swelling, s.o.b. at night Shortness of breath M: [id number] Comparison: 06/14/2024 RESULT: See impression. IMPRESSION: Lines, tubes, and devices: Partially visualized ventriculoperitoneal shunt tubing. Lungs and pleura: Streaky densities at the left lung base favored to represent atelectasis. Lungs and pleura are otherwise clear. Cardiomediastinal silhouette: The cardiomediastinal contours are not significantly changed. Other: The thoracic musculoskeletal structures and upper abdomen are not significantly changed. . Irrigation District Manager: TERESA Transcribe Date/Time: Jul 12 2024 5:43P Dictated by : KOURTNEY ROWELL MD This examination was interpreted and the report reviewed and electronically signed by: KOURTNEY ROWELL MD on Jul 12 2024 5:44PM EST [id number] Normal [facility] Gastroenterology Visit Repor ton 07-01-2024 Gastroenterology Visit Report [facility] [address] [place] [address] OFFICE VISIT Date of Service: 07/01/24 MR#: [id number] Acct: [id number] Name: CHRISTIAN SUGGS Rep #: [id number] 05 : 1945 Provider: Godwin Alvarez DO Age/Sex: 78/F Location: [facility] [place] Status: Signed Intake Vital Signs 01/13/23 14:19 Height 5 ft 3.5 in Intake Visit Reasons: Follow up Chief Complaint: Follow up Diarrhea Allergies mesalamine Adverse Reaction (Intermediate, Verified 09/04/23 14:11) myalgia hydrocodone bitartrate (From Vicodin) Adverse Reaction (Verified 09/04/23 14:11) Other Metronidazole HCl (From Flagyl) Adverse Reaction (Verified 09/04/23 14:11) Other oxycodone HCl (From Percocet) Adverse Reaction (Verified 09/04/23 14:11) Other scopolamine Adverse Reaction (Verified 09/04/23 14:11) Other Medications ???Medication ???Instructions ???Recorded ???Confirmed ???Type multivitamin with folic acid 400 1 tab PO DAILY supplement 10/13/14 07/01/24 History mcg tablet duloxetine 30 mg capsule,delayed 30 mg PO DAILY CHRONIC PAIN 09/17/18 07/01/24 History release (Cymbalta) aspirin 81 mg chewable tablet 81 mg PO DAILY dvt 10/16/18 07/01/24 History biotin 1 mg capsule 1 mg PO DAILY SUPPLEMENT 05/23/21 07/01/24 History melatonin 5 mg tablet 5 mg PO QHS SLEEP 05/23/21 07/01/24 History rosuvastatin 5 mg tablet 5 mg PO DAILY CHOLESTEROL 11/01/21 07/01/24 History Disability Placard #1 ea 07/10/22 07/01/24 Rx Stairlift #1 ea 07/10/22 07/01/24 Rx budesonide 3 mg 6 mg (2 x 3 mg) PO DAILY COLITIS 03/08/24 07/01/24 Rx capsule,delayed,extende d release #60 ea omeprazole 40 mg capsule,delayed 40 mg PO DAILY GERD #30 caps 03/08/24 07/01/24 Rx release tamsulosin 0.4 mg capsule 0.4 mg PO QHS #30 caps 05/05/24 07/01/24 Rx cholestyramine (with sugar) 4 gram 4 g PO DAILY #348.6 grams 05/18/24 07/01/24 Rx oral powder Have you fallen in the past year?: No PFSH Medical History Wears glasses Post-menopausal Cancer Ambulates with cane High cholesterol Back pain TIA (transient ischemic attack) History of IBS Sleep apnea History of edema History of stress test Urinary retention COVID Skin cancer Hypoglycemia Carpal tunnel syndrome Hx of cataract UTI (urinary tract infection) Obesity GERD (gastroesophageal reflux disease) Wears hearing aid Arthritis Pulmonary embolism Diarrhea Gastric reflux History of Clostridioides difficile infection Eosinophilic gastroenteritis Change in bowel habit Anxiety and depression History of pulmonary embolism Pyelonephritis Rheumatoid arthritis Erosion of suburethral sling Internal hemorrhoid Chronic back pain Osteoarthritis History of Clostridium difficile Sciatic neuropathy Compression fx, lumbar spine Surgical History History of back surgery History of brain shunt History of surgical removal of skin lesion History of carpal tunnel surgery History of right hip replacement History of rotator cuff surgery history of bladder sling Status post total right knee replacement Family History Brother Cancer Alcoholism Sister Anxiety Depression Social History household members: spouse Smoking Status: Never smoker second hand exposure: No alcohol intake: never substance use type: does not use what type of physical activity do you participate in: none ye/caodaism: Bahai seatbelt use: always HPI HPI Chief Complaint: Follow up Diarrhea Details: CHRISTIAN SUGGS, is a 78 F who presents to the office today for follow up. *BGI established 05.22.21 with intermittent urgent loose stools. ? EGD and colonoscopy 05.28.21 EGD hiatal hernia; gastritis; duodenitis ? Colonoscopy moderate colonic spasm; hemorrhoids; pathology consistent with lymphocytic and collagenous colitis ? Start budesonide 6mg (expensive) OV 06.18.21 doing well with budesonide 6mg. OV 08.13.21 she stopped taking budesonide and then had a return of symptoms. Start budesonide. OV 10.04.21 some days are better than others in regard to her loose stools. Continues with budesonide and Lomotil. ? Biochemical 10.04.22 CBC, ESR, CMP, LFT, CRP, D25, TSH, GAME, ANCA, GIANCARLO comp without pertinent abnormality ? LDH H329, B12 H922 OV 11.30.21 has lost 4lbs with restricted carbohydrate diet. OV 03.13.22 doing well overall; has issue with intermittent loose stools layla (more content not included)... Normal [facility] 06-16-2024 DILLONN Telephone (AKRX) CHRISTIAN SUGGS ([id number]) 1945 F Date Time Provider Department 06/16/24 ALANMONICACHUYITAJACK VELASQUEZ During your visit today, we recorded the following information about you: [place], Chuyita [facility] 06/16/2024 9:37 AM Signed Emergency Department Culture Callback Service Patient Name: Christian Suggs Date of Callback: 06/16/2024 Pharmacist spoke to Patient and Significant Other to update on results from recent emergency department visit. Patient was verified with two identifiers. Pharmacist utilized consult agreement to update plan of care as documented. Type of Culture(s): Urine Result: Positive: Proteus vulgaris Change in treatment needed:Yes: Change treatment medication Action Taken: Final result reviewed. >100k Proteus vulgaris resistant to cephalexin prescribed. Patient reports feeling significantly improved today but some residual dizziness. Will change treatment to Bactrim 1 DS tablet PO BID x 3 days per consult agreement. Patient contacted - informed of change and also relayed information to patient's spouse with approval. Please page/call with any issues or questions. Electronic signature: Chuyita Cortes, PharmD June 16, 2024 9:33 AM Allergies As of Date: 06/16/2024 Noted Allergy Reaction HYDROCODONE BITARTRATE 09/17/2018 8 - GI Upset MESALAMINE 09/24/2021 17 - Myalgia OXYCODONE 09/17/2018 8 - GI Upset FLAGYL (NITROIMIDAZOLES) 01/15/2016 14 - Other: See Comments Comments: metal mouth SCOPOLAMINE 09/17/2018 14 - Other: See Comments Date Reviewed: 06/14/2024 Reviewed by: Janene Nye RN - Fully Assessed Reason for Visit: Results [95] Order(s):Order #: [id number] Prescriptions as of 06/16/2024 - sulfamethoxazole-trimet hoprim (BACTRIM DS) 800-160 mg per tablet Take 1 tablet by mouth two times a day for 3 days. - meclizine (ANTIVERT) 25 mg tab Take 1 tablet by mouth three times a day for 7 days. - tamsulosin (FLOMAX) 0.4 mg Take 1 capsule by mouth once daily at bedtime - triamcinolone acetonide (KENALOG) 0.1 % cream - aspirin, enteric coated (ASPIRIN, ENTERIC COATED) 81 mg EC tablet Take 1 tablet by mouth once daily. To begin on 11/04/22 - CALCIUM-VITAMIN D3 ORAL Take 1 capsule by mouth once daily. - biotin 1 mg cap Take 1 capsule by mouth once daily. - Melatonin 5 mg cap Take 1 capsule by mouth daily at bedtime. - rosuvastatin (CRESTOR) 5 mg tablet Take 1 tablet by mouth once daily. - budesonide, enteric coated (ENTOCORT EC) 3 mg 24 hr capsule Take 2 capsules by mouth daily before breakfast. Resume after Dexamethasone completed - omeprazole (PRILOSEC) 40 mg capsule Take 40 mg by mouth once daily. - DULoxetine (CYMBALTA) 30 mg capsule Take 1 capsule by mouth daily at bedtime. - multivitamin ORAL tablet Take 1 tablet by mouth once daily. 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] 06/06/2011 Myringitis [H73.20] 06/06/2011 Osteoporosis [M81.0] 06/06/2011 Lymphocytic colitis [K52.832] 02/07/2016 Neck pain [M54.2] 06/08/2021 08/17/2021 Frequent falls [R29.6] 06/08/2021 08/17/2021 Weakness of back [R29.898] 06/08/2021 08/17/2021 Cerebral ventriculomegaly [G93.89] 02/19/2022 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] 02/19/2022 Balance problems [R26.89] 02/19/2022 Thyroid nodule [E04.1] 02/19/2022 Family history of ischemic heart disease and ot*03/05/2022 COVID-19 [U07.1] 06/20/2022 07/05/2022 Urinary retention [R33.9] 06/21/2022 Fall at home, initial encounter [W19.XXXA, Y92.*06/23/2022 Acute respiratory failure with hypoxemia (HCC) *06/24/2022 06/27/2022 UTI (urinary tract infection) [N39.0] 06/24/2022 Endometrial mass [N94.89] 06/24/2022 Elevated troponin [R79.89] 06/24/2022 07/05/2022 Obesity, Class I, BMI 30-34.9 [E66.811] 06/24/2022 Acute respiratory failure with hypoxia (HCC) [J*06/24/2022 07/05/2022 Aftercare [Z51.89] 06/27/2022 NPH (normal pressure hydrocephalus) (HCC) [G91.*08/28/2022 [facility] (obstructive sleep apnea) [G47.33] 08/28/2022 History of pulmonary embolism [Z86.711] 08/28/2022 HLD (hyperlipidemia) [E78.5] 08/28/2022 Preop testing [Z01.818] 10/02/2022 Rheumatoid arthritis (HCC) [M06.9] 10/03/2022 S/P ventriculoperitoneal shunt [Z98.2] 11/13/2022 Prescriptions ordered this encounter Disp Refills Start End SULFAMETHOXAZOLE 800 MG-TRIMETHOPRIM* 6 ta* 0 06/16/2024 06/19/2024 Route: ORAL Sig: Take 1 tablet by mouth two times a day for 3 days. Medications Discontinued During This Encounter Prescriptio (more content not included)... Normal [facility] 06-15-2024 SONAM Telephone (NEAGCLM) SUGGS,TUULA A ([id number]) 1945 F Date Time Provider Department 06/15/24 LYNN MURDOCK NEAGCLM During your visit today, we recorded the following information about you: Lynn Murdock APRN.BRIM SHAPER 06/15/2024 10:28 AM Signed Returned call to patient's daughter Laura. She had left a message yesterday when I was out of the office that her mom was very dizzy, weak and had vomited. She was taken to an outside ED and was told she had vertigo. Prior to me returning the call the patient was taken to [facility] ED where workup was completed including CT brain, shunt series, chest x-ray, and urine testing. She was found to have a significant UTI. CT imaging and shunt series were stable. Christian is now on antibiotics for the UTI. I told her daughter to feel free to contact the office if she is still concerned once the UTI clears up however I suspect that her symptoms are related to this infection. Laura agreed and will contact us in the future should the need arise. Lynn Murdock APRN-BRIM SHAPER Neurosurgery Nurse Practitioner [facility] 10:27 AM 06/15/2024 Allergies As of Date: 06/15/2024 Noted Allergy Reaction HYDROCODONE BITARTRATE 09/17/2018 8 - GI Upset MESALAMINE 09/24/2021 17 - Myalgia OXYCODONE 09/17/2018 8 - GI Upset FLAGYL (NITROIMIDAZOLES) 01/15/2016 14 - Other: See Comments Comments: metal mouth SCOPOLAMINE 09/17/2018 14 - Other: See Comments Date Reviewed: 06/14/2024 Reviewed by: aJnene Nye, RN - Fully Assessed Reason for Visit: Returning Patient's Call [[id number]] Prescriptions as of 06/15/2024 - cephALEXin (KEFLEX) 500 mg capsule Take 1 capsule by mouth two times a day for 7 days. - meclizine (ANTIVERT) 25 mg tab Take 1 tablet by mouth three times a day for 7 days. - tamsulosin (FLOMAX) 0.4 mg Take 1 capsule by mouth once daily at bedtime - triamcinolone acetonide (KENALOG) 0.1 % cream - aspirin, enteric coated (ASPIRIN, ENTERIC COATED) 81 mg EC tablet Take 1 tablet by mouth once daily. To begin on 11/04/22 - CALCIUM-VITAMIN D3 ORAL Take 1 capsule by mouth once daily. - biotin 1 mg cap Take 1 capsule by mouth once daily. - Melatonin 5 mg cap Take 1 capsule by mouth daily at bedtime. - rosuvastatin (CRESTOR) 5 mg tablet Take 1 tablet by mouth once daily. - budesonide, enteric coated (ENTOCORT EC) 3 mg 24 hr capsule Take 2 capsules by mouth daily before breakfast. Resume after Dexamethasone completed - omeprazole (PRILOSEC) 40 mg capsule Take 40 mg by mouth once daily. - DULoxetine (CYMBALTA) 30 mg capsule Take 1 capsule by mouth daily at bedtime. - multivitamin ORAL tablet Take 1 tablet by mouth once daily. 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] 06/06/2011 Myringitis [H73.20] 06/06/2011 Osteoporosis [M81.0] 06/06/2011 Lymphocytic colitis [K52.832] 02/07/2016 Neck pain [M54.2] 06/08/2021 08/17/2021 Frequent falls [R29.6] 06/08/2021 08/17/2021 Weakness of back [R29.898] 06/08/2021 08/17/2021 Cerebral ventriculomegaly [G93.89] 02/19/2022 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] 02/19/2022 Balance problems [R26.89] 02/19/2022 Thyroid nodule [E04.1] 02/19/2022 Family history of ischemic heart disease and ot*03/05/2022 COVID-19 [U07.1] 06/20/2022 07/05/2022 Urinary retention [R33.9] 06/21/2022 Fall at home, initial encounter [W19.XXXA, Y92.*06/23/2022 Acute respiratory failure with hypoxemia (HCC) *06/24/2022 06/27/2022 UTI (urinary tract infection) [N39.0] 06/24/2022 Endometrial mass [N94.89] 06/24/2022 Elevated troponin [R79.89] 06/24/2022 07/05/2022 Obesity, Class I, BMI 30-34.9 [E66.811] 06/24/2022 Acute respiratory failure with hypoxia (HCC) [J*06/24/2022 07/05/2022 Aftercare [Z51.89] 06/27/2022 NPH (normal pressure hydrocephalus) (HCC) [G91.*08/28/2022 [facility] (obstructive sleep apnea) [G47.33] 08/28/2022 History of pulmonary embolism [Z86.711] 08/28/2022 HLD (hyperlipidemia) [E78.5] 08/28/2022 Preop testing [Z01.818] 10/02/2022 Rheumatoid arthritis (HCC) [M06.9] 10/03/2022 S/P ventriculoperitoneal shunt [Z98.2] 11/13/2022 Encounter Status:Closed by LYNN MURDOCK on 06/15/24 [facility] ED PROV NOTEon 06-15-2024 ED PROV NOTE HNO ID: [id number] Author: TOR AGUILAR DO Service: Emergency Medicine Author Type: Physician Type: ED Provider Notes Filed: 06/15/2024 02:27 Note Text: TEACHING ATTESTATION: I personally saw and examined the patient. I reviewed the resident's note. I agree with the resident's assessment and plan unless otherwise noted. 78-year-old female presents to the emerged department with generalized weakness and dizziness. Patient does have a history of a DESIGNER/WRITER shunt secondary to normal pressure hydrocephalus. She was seen at [place] a couple of days ago and daughter was concerned that she may have a urinary tract infection as she has had prior urinary tract infections. She denies fevers or chills. She did have 1 episode of vomiting at home. Vitals are stable. Patient was seen with Dr. Alva, resident physician, please see his note for full history and physical exam. I agree with the above without significant change. CT head negative, shunt series negative. Chest x-ray within normal limits. Urinalysis is suggestive of urinary tract infection. Patient treated with both meclizine and cephalexin in the ED. Patient had improvement of her dizziness after meclizine and able to move her head and look around much more easily. She did stand for me and was not unsteady. She does have a walker and a chairlift at home and is accompanied by her daughter who stated that she will be able to get her into the house without difficulty. Extraocular movement intact. No other focal neurologic deficits. Discharged home in stable condition. TOR PHELAN 06/15/24 0227 Normal [facility] ED PROV NOTE HNO ID: [id number] Author: TOR AGUILAR DO Service: Critical Care Author Type: Physician Type: ED Provider Notes Filed: 06/15/2024 04:55 Note Text: ED Provider Note Patient Name: Christian Suggs : 1945 SERVICE DATE: 06/14/24 History Patient presents with: Dizziness: Pt c/o dizziness +nANDv pt thinks her shunt isn't working denies headache [facility] [place] [facility] 78-year-old with past medical history arthritis, melanoma, rotator cuff tear, dementia, and NPH presents with dizziness. Patient mentions suffering from [room spinning] sensation when getting out of chair on Friday. Per family members, noted nystagmus. Daughter at bedside aiding with history. She was noted to be sleeping all day on Friday and having poor appetite along with nausea and vomiting. Daughter and patient is concerned or malfunction of DESIGNER/WRITER shunt .Patient denies fever, chills, ear ringing, ear fullness, no recent viral illness, or antibiotic intake. She denies any vision changes, focal deficits, tingling or weakness. PAST MEDICAL HISTORY Diagnosis Date Allergic rhinitis Arthritis Back C. difficile enteritis History of back surgery 07/21/2011 HLD (hyperlipidemia) Lymphocytic colitis Melanoma (HCC) right thigh NPH (normal pressure hydrocephalus) (HCC) [facility] (obstructive sleep apnea) Rotator cuff tear arthropathy of right shoulder 07/21/2012 Urinary retention PAST SURGICAL HISTORY Procedure Laterality Date ARTHRP KNE CONDYLEANDPLATU MEDIALANDLAT COMPARTMENTS Right 10/2014 CARPAL TUNNEL 2009 bilateral CHOLECYSTECTOMY HX N/A COLONOSCOPY FLX DX W/COLLJ SPEC WHEN PFRMD 02/02/2016 JOINT REPLACEMENT HX ORTHOPEDICS SURGERY HX PAST SURGICAL HISTORY OF 1999 bladder repair PAST SURGICAL HISTORY OF 2007 melanoma removal FAMILY HISTORY Problem Relation Age of Onset Heart Father late in life Breast Cancer Maternal Aunt Diabetes Other none Colon Cancer Other none Coronary Artery Disease Other none Social History Tobacco Use Smoking status: Never Smokeless tobacco: Never Vaping Use Vaping status: Never Used Substance and Sexual Activity Alcohol use: No Drug use: No Sexual activity: Not Currently Partners: Male ALLERGIES Allergen Reactions Hydrocodone Bitartr* GI Upset Mesalamine Myalgia Oxycodone GI Upset Flagyl [Nitroimidaz* Other: See Comments metal mouth Scopolamine Other: See Comments Review of Systems Constitutional: Positive for fatigue. Negative for chills and fever. HENT: Negative for ear discharge, postnasal drip, rhinorrhea, sinus pressure, sinus pain, tinnitus and trouble swallowing. Eyes: Negative for visual disturbance. Respiratory: Negative for choking and shortness of breath. Cardiovascular: Negative for chest pain and palpitations. Gastrointestinal: Positive for nausea and vomiting. Negative for abdominal distention. Neurological: Positive for dizziness, light-headedness and headaches. Negative for seizures and syncope. Psychiatric/Behavioral: Negative for confusion and decreased concentration. Physical Exam Vitals [06/14/24 1302] BP Pulse Temp Temp src Resp SpO2 Weight Height 144/85 85 36.7 ?C (98.1 ?F) Oral 22 98 % 72.6 kg (160 lb) 1.626 m (5' 4) Physical Exam Constitutional: General: She is not in acute distress. Appearance: She is not ill-appearing. HENT: Head: Normocephalic and atraumatic. Eyes: Extraocular Movements: Extraocular movements intact. Pupils: Pupils are equal, round, and reactive to light. Cardiovascular: Rate and Rhythm: Normal rate and regular rhythm. Pulses: Normal pulses. Pulmonary: Effort: Pulmonary effort is normal. No respiratory distress. Breath sounds: Normal breath sounds. Abdominal: Palpations: Abdomen is soft. Tenderness: There is no abdominal tenderness. Musculoskeletal: General: No swelling. Normal range of motion. Cervical back: Neck supple. Skin: General: Skin is warm and dry. Neurological: General: No focal deficit present. Mental Status: She is alert and oriented to person, place, and time. Cranial Nerves: Cranial nerves 2-12 are intact. No cranial nerve deficit. Sensory: Sensation is intact. Motor: No weakness or atrophy. Coordination: Romberg sign negative. Coordination normal. Jwnnph-Lwkb-Ocbpho Test normal. Diagnostic Testing ED Labs Ordered and Reviewed COMPREHENSIVE METABOLIC PANEL - Abnormal; Notable for the following components: Result Value Ref Range Sodium 132 (*) 136 - 144 mmol/L CO2 19 (*) 22 - 30 mmol/L All other components within normal limits HIGH SENSITIVITY TROPONIN T (INITIAL) - Abnormal; Notable for the following components: JOSSIE High Sensitivity 17 (*) <12 ng/L All other components within normal limits COMPLETE BLOOD COUNT AND DIFFERENTIAL - Abnormal; Notable for the following components: RDW-CV 15.1 (*) 11.5 - 15.0 % All other components within normal (more content not included)... Normal [facility] ALLIED HEALTHon 06-14-2024 ALLIED HEALTH HNO ID: [id number] Author: SANGITA SNELL RT(R) Service: Radiology Author Type: Technologist Type: Allied Health Filed: 06/14/2024 13:58 Note Text: Radiology Service Progress Note PATIENT NAME: Christian Suggs DATE OF SERVICE: June 14, 2024 TIME: 1:57 PM PATIENT IDENTITY VERIFICATION COMPLETED USING TWO (2) IDENTIFIERS: Name and Date of confirmed by patient verbally and Name and Date of confirmed by identification band. FALL SCREENING: Has the patient had 2 falls in the last year or 1 fall with injury or currently using an Ambulatory Assistive Device (Walker, Cane, Wheelchair, Crutches, etc.)? Emergency Room Patient: Screened in ED PATIENT GENDER DATA: Female. status: : No status: NO. PATIENT RELEVANT IMPLANT DATA REVIEWED: Not Applicable PATIENT PRESENTS WITH AN IMPLANTABLE OR ATTACHED VERSE WRITER: No RADIOLOGY DEPARTMENT: CT; Exam(s) Completed: Brain PERIPHERAL IV DATA: Not applicable SIGNED BY: RT Kamlesh(R) June 14, 2024 1:57 PM Normal [facility] Bacteria Ur Culton Bacteria identified Cx Nom (U) ORGANISM ID: 1 >=100,000 CFU/ml Proteus vulgaris group Identified as Proteus penneri (part of Proteus vulgaris group). ORGANISM ID: 2 10,000 -<50,000 CFU/ml Normal urogenital agatha ORGANISM ID: 1 (PROTEUS VULGARIS GROUP) ANTIBIOTIC INTERPRETATION CHRISTOPHER STATUS REFERENCE RANGE Ampicillin R >16 F Susceptible <=8 , Intermediate >8 , Resistant >16 Cefazolin R >16 F Susceptible 0-16 , Intermediate <0 or >16 , Resistant >16 For uncomplicated urinary tract infections, cefazolin results can be used to predict susceptibility or resistance to cephalexin. Ceftriaxone R 32 F Susceptible <=1 , Intermediate >1 , Resistant >=4 Cefepime S <=1 F Susceptible <=2 , Susceptible-Dose Dependent >2 , Resistant >=16 Ertapenem S <=0.25 F Susceptible <=0.5 , Intermediate >.5 , Resistant >1 Meropenem S <=0.5 F Susceptible <=1 , Intermediate >1 , Resistant >2 Aztreonam S <=2 F Susceptible <=4 , Intermediate >4 , Resistant >=16 Piperacillin/Tazobac S <=2 F Gentamicin S <=2 F Susceptible <=4 , Intermediate >4 , Resistant >8 Trimeth sulfameth S <=0.5 F Ciprofloxacin S <=0.25 F Susceptible <0.5 , Intermediate >=.5 , Resistant >=1 Nitrofurantoin R >64 F Susceptible <=32 , Intermediate >32 , Resistant >64 Abnormal [facility] Comment on above: Performed By: #### 6 30-4, 54528-2 ####[facility] LABORATORYCLIA [id number] [place] [address] [place] CBC W Auto Differential pane l (Bld)on 06-14-2024 Basophils (Bld) [#/Vol] 0.03 10*3/uL Normal <0.11 [facility] Comment on above: Order Comment: Speci men Type: BLOOD SPECIMENOrdering Facility: [facility] Address: [address] [place] [address] Performed By: #### 5 7021-8 ####[facility] LABORATORYCLIA [id number] [address] [place] Basophils/100 WBC (Bld) 0.4 % Normal [facility] Comment on above: Order Comment: Speci men Type: BLOOD SPECIMENOrdering Facility: [facility] Address: [address] [place] [address] Performed By: #### 5 7021-8 ####[facility] LABORATORYCLIA [id number] [address] STATES [facility] Differential cell count method Nom (Bld) Auto Normal [facility] Comment on above: Order Comment: Speci men Type: BLOOD SPECIMENOrdering Facility: [facility] Address: [address] [place] [address] Performed By: #### 5 7021-8 ####[facility] LABORATORYCLIA [id number] [place] [address] [place] Eosinophils (Bld) [#/Vol] 0.06 10*3/uL Normal <0.46 [facility] Comment on above: Order Comment: Speci men Type: BLOOD SPECIMENOrdering Facility: [facility] Address: [facility] [place] [address] Performed By: #### 5 7021-8 ####[facility]ORATORYCLIA [id number] [address] [place] Eosinophils/100 WBC (Bld) 0.8 % Normal [facility] Comment on above: Order Comment: Speci men Type: BLOOD SPECIMENOrdering Facility: [facility] Address: [address] [place] [address] Performed By: #### 5 7021-8 ####[facility] LABORATORYCLIA [id number] [address] [place] Erythrocyte distribution width (RBC) [Ratio] 15.1 % High 11.5-15.0 [facility] Comment on above: Order Comment: Speci men Type: BLOOD SPECIMENOrdering Facility: [facility] Address: [address] [place] [address] Performed By: #### 5 7021-8 ####[facility] LABORATORYCLIA [id number] [address] [place] Hematocrit (Bld) [Volume fraction] 44.5 % Normal 36.0-46.0 [facility] Comment on above: Order Comment: Speci men Type: BLOOD SPECIMENOrdering Facility: [facility] Address: [address] [place] [address] Performed By: #### 5 7021-8 ####[facility] LABORATORYCLIA [id number] [address] [place] Hemoglobin (Bld) [Mass/Vol] 14.5 g/dL Normal 11.5-15.5 [facility] Comment on above: Order Comment: Speci men Type: BLOOD SPECIMENOrdering Facility: [facility] Address: [address] [place] [address] Performed By: #### 5 7021-8 ####[facility] LABORATORYCLIA [id number] [address] [place] Immature granulocytes (Bld) [#/Vol] 10*3/uL Normal <0.10 [facility] Comment on above: Order Comment: Speci men Type: BLOOD SPECIMENOrdering Facility: [facility] Address: [address] [place] [address] Performed By: #### 5 7021-8 ####[facility]ORATORYCLIA [id number] [address] Immature granulocytes/100 WBC (Bld) 0.3 % Normal [facility] Comment on above: Order Comment: Speci men Type: BLOOD SPECIMENOrdering Facility: [facility] Address: [address] [place] [address] Performed By: #### 5 7021-8 ####[facility] LABORATORYCLIA [id number] [address] [place] Lymphocytes (Bld) [#/Vol] 1.86 10*3/uL Normal 1.00-4.00 [facility] Comment on above: Order Comment: Speci men Type: BLOOD SPECIMENOrdering Facility: [facility] Address: [address] [place] [address] Performed By: #### 5 7021-8 ####[facility] LABORATORYCLIA [id number] [address] Lymphocytes/100 WBC (Bld) 25.3 % Normal [facility] Comment on above: Order Comment: Speci men Type: BLOOD SPECIMENOrdering Facility: [facility] Address: [address] [place] [address] Performed By: #### 5 7021-8 ####[facility]ORATORYCLIA [id number] [address] STATES [facility] MCH (RBC) [Entitic mass] 29.5 pg Normal 26.0-34.0 [facility] Comment on above: Order Comment: Speci men Type: BLOOD SPECIMENOrdering Facility: [facility] Address: [address] [place] [address] Performed By: #### 5 7021-8 ####[facility] LABORATORYCLIA [id number] [address] MCHC (RBC) [Mass/Vol] 32.6 g/dL Normal 30.5-36.0 [facility] Comment on above: Order Comment: Speci men Type: BLOOD SPECIMENOrdering Facility: [facility] Address: [address] [place] [address] Performed By: #### 5 7021-8 ####[facility]ORATORYCLIA [id number] [address] [place] MCV (RBC) [Entitic vol] 90.6 fL Normal 80.0-100.0 [facility] Comment on above: Order Comment: Speci men Type: BLOOD SPECIMENOrdering Facility: [facility] Address: [address] [place] [address] Performed By: #### 5 7021-8 ####[facility] LABORATORYCLIA [id number] [address] [place] Monocytes (Bld) [#/Vol] 0.40 10*3/uL Normal <0.87 [facility] Comment on above: Order Comment: Speci men Type: BLOOD SPECIMENOrdering Facility: [facility] Address: [address] [place] [address] Performed By: #### 5 7021-8 ####[facility] LABORATORYCLIA [id number] [address] [place] Monocytes/100 WBC (Bld) 5.4 % Normal [facility] Comment on above: Order Comment: Speci men Type: BLOOD SPECIMENOrdering Facility: [facility] Address: [address] [place] [address] Performed By: #### 5 7021-8 ####[facility]ORATORYCLIA [id number] [address] [place] Neutrophils (Bld) [#/Vol] 4.97 10*3/uL Normal 1.45-7.50 [facility] Comment on above: Order Comment: Speci men Type: BLOOD SPECIMENOrdering Facility: [facility] Address: [address] [place] [address] Performed By: #### 5 7021-8 ####[facility]ORATORYCLIA [id number] [address] [place] Neutrophils/100 WBC (Bld) 67.8 % Normal [facility] Comment on above: Order Comment: Speci men Type: BLOOD SPECIMENOrdering Facility: [facility] Address: [address] [place] [address] Performed By: #### 5 7021-8 ####[facility] LABORATORYCLIA [id number] [address] Nucleated RBC (Bld) [#/Vol] 10*3/uL Normal <0.01 [facility] Comment on above: Order Comment: Speci men Type: BLOOD SPECIMENOrdering Facility: [facility] Address: [address] [place] [address] Performed By: #### 5 7021-8 ####[facility] LABORATORYCLIA [id number] [address] Nucleated RBC/100 WBC (Bld) [Ratio] 0.0 /100 WBC Normal [facility] Comment on above: Order Comment: Speci men Type: BLOOD SPECIMENOrdering Facility: [facility] Address: [address] [place] [address] Performed By: #### 5 7021-8 ####[facility] LABORATORYCLIA [id number] [address] [place] Platelet mean volume (Bld) [Entitic vol] 10.6 fL Normal 9.0-12.7 [facility] Comment on above: Order Comment: Speci men Type: BLOOD SPECIMENOrdering Facility: [facility] Address: [address] [place] [address] Performed By: #### 5 7021-8 ####[facility] LABORATORYCLIA [id number] [address] [place] Platelets (Bld) [#/Vol] 155 10*3/uL Normal 150-400 [facility] Comment on above: Order Comment: Speci men Type: BLOOD SPECIMENOrdering Facility: [facility] Address: [address] [place] [address] Result Comment: No c lot detected. Performed By: #### 5 7021-8 ####[facility] LABORATORYCLIA [id number] [place] [address] [place] RBC (Bld) [#/Vol] 4.91 10*6/uL Normal 3.90-5.20 [facility] Comment on above: Order Comment: Speci men Type: BLOOD SPECIMENOrdering Facility: [facility] Address: [address] [place] [address] Performed By: #### 5 7021-8 ####[facility] LABORATORYCLIA [id number] [place] [id number] [place] [facility] WBC (Bld) [#/Vol] 7.34 10*3/uL Normal 3.70-11.00 [facility] Comment on above: Order Comment: Speci men Type: BLOOD SPECIMENOrdering Facility: [facility] Address: [address] [place] [address] Performed By: #### 5 7021-8 ####[facility] LABORATORYCLIA [id number] [address] BRAIN WO IVCONon 06-14-[address] BRAIN WO IVCON * * *Final Report* * * DATE OF EXAM: Jun 14 2024 1:59PM [facility] 0504 - CT BRAIN WO IVCON / PROCEDURE REASON: Dizziness, non-specific * * * * Physician Interpretation * * * * EXAMINATION: CT BRAIN WITHOUT IV CONTRAST CLINICAL HISTORY: Dizziness. Nausea and vomiting. TECHNIQUE: Serial axial images without IV contrast were obtained from the vertex to the foramen magnum. MQ: [id number]_3 CT Radiation dose: Integrated Dose-Length Product (DLP) for this visit = 769 mGy*cm CT Dose Reduction Employed: Iterative recon COMPARISON: CT brain 06/12/2024 and 01/24/2023. RESULT: Localizer images: Unremarkable. Post-operative change: Right frontal approach tracheostomy catheter that crosses midline with tip in the anterior left lateral ventricle appears stable. Acute change: No evidence of an acute infarct or other acute parenchymal process. Hemorrhage: No evidence of acute intracranial hemorrhage. ECASS hemorrhagic transformation score: Not Applicable Mass Lesion / Mass Effect: There is no evidence of an intracranial mass or extraaxial fluid collection. No significant mass effect. Chronic change: Patchy foci of low attenuation coefficient are present within the supratentorial white matter which is a nonspecific finding but likely represents moderate microvascular ischemia. Parenchyma: There is minimal generalized volume loss. Ventricles: The ventricular system is minimally dilated but stable dating back to 01/24/2023. Paranasal sinuses and skull base: The visualized paranasal sinuses are grossly clear. The skull base and imaged soft tissues are unremarkable. IMPRESSION: 1. No evidence of acute intracranial process or significant interval change. 2. Chronic small vessel ischemic changes of the supra tentorial white matter. Minimal generalized brain parenchymal volume loss. 3. Minimal dilatation of the ventricular system status post ventriculostomy, similar to 2022. No overt hydrocephalus. Irrigation District Manager: PSCB Transcribe Date/Time: Jun 14 2024 3:03P Dictated by : ONOFRE CRAFT MD This examination was interpreted and the report reviewed and electronically signed by: ONOFRE CRAFT MD on Jun 14 2024 3:12PM EST [id number] Normal [facility] Comprehensive metabolic 2000 panelon 06-14-2024 Albumin [Mass/Vol] 4.1 g/dL Normal 3.9-4.9 [facility] Comment on above: Order Comment: Speci men Type: BLOOD SPECIMENOrdering Facility: [facility] Address: [address] [place] [address] Performed By: #### 1 9123-9, 76052-3 ####[facility] LABORATORYCLIA [id number] [place] [address] [place] ALP [Catalytic activity/Vol] 77 U/L Normal 34-123 [facility] Comment on above: Order Comment: Speci men Type: BLOOD SPECIMENOrdering Facility: [facility] Address: [address] [place] [address] Performed By: #### 1 9123-9, 92479-3 ####[facility] LABORATORYCLIA [id number] [place] [address] [place] ALT With P-5'-P [Catalytic activity/Vol] 14 U/L Normal 7-38 [facility] Comment on above: Order Comment: Speci men Type: BLOOD SPECIMENOrdering Facility: [facility] Address: [address] [place] [address] Performed By: #### 1 23-9, 55464-8 ####[facility] LABORATORYCLIA [id number] [place] [address] [place] Anion gap [Moles/Vol] 14 mmol/L Normal 8-15 [facility] Comment on above: Order Comment: Speci men Type: BLOOD SPECIMENOrdering Facility: [facility] Address: [address] [place] [address] Performed By: #### 1 23-9, ####[facility] LABORATORYCLIA [id number] [place] [address] [place] AST With P-5'-P [Catalytic activity/Vol] 21 U/L Normal 13-35 [facility] Comment on above: Order Comment: Speci men Type: BLOOD SPECIMENOrdering Facility: [facility] Address: [address] [place] [address] Performed By: #### 1 23-9, ####[facility] LABORATORYCLIA [id number] [place] [address] [place] Bilirubin [Mass/Vol] 0.3 mg/dL Normal 0.2-1.3 [facility] Comment on above: Order Comment: Speci men Type: BLOOD SPECIMENOrdering Facility: [facility] Address: [address] [place] [address] Performed By: #### 1 23-9, ####[facility] LABORATORYCLIA [id number] [address] [place] Calcium [Mass/Vol] 9.2 mg/dL Normal 8.5-10.2 [facility] Comment on above: Order Comment: Speci men Type: BLOOD SPECIMENOrdering Facility: [facility] Address: [address] [place] [address] Performed By: #### 1 23-9, 67095-8 ####[facility] LABORATORYCLIA [id number] [place] [address] [place] Chloride [Moles/Vol] 99 mmol/L Normal 98-107 [facility] Comment on above: Order Comment: Speci men Type: BLOOD SPECIMENOrdering Facility: [facility] Address: [address] [place] [address] Performed By: #### 1 9123-9, ####[facility] LABORATORYCLIA [id number] [address] CO2 [Moles/Vol] 19 mmol/L Low 22-30 [facility] Comment on above: Order Comment: Speci men Type: BLOOD SPECIMENOrdering Facility: [facility] Address: [address] [place] [address] Performed By: #### 1 9123-9, ####[facility]ENTERCLIA [id number] [address] Creatinine [Mass/Vol] 0.69 mg/dL Normal 0.58-0.96 [facility] Comment on above: Order Comment: Speci men Type: BLOOD SPECIMENOrdering Facility: [facility] Address: [address] [place] [address] Performed By: #### 1 9123-9, ####[facility] LABORATORYCLIA [id number] [address] Creatinine and Glomerular filtration rate.predicted panel (S/P/Bld) 88 mL/min/1.73m??? Normal >=60 [facility] Comment on above: Order Comment: Speci men Type: BLOOD SPECIMENOrdering Facility: [facility] Address: [address] [place] [address] Result Comment: Anna mated Glomerular Filtration Rate (eGFR) is calculated using the 2020 CKD-EPI creatinine equation. This equation utilizes serum creatinine, sex, and age as parameters. The creatinine assay has traceable calibration to isotope dilution-mass spectrometry. Refer to KDIGO guidelines for clinical interpretation. In patients with unstable renal function, e.g. those with acute kidney injury, the eGFR may not accurately reflect actual GFR. Performed By: #### 1 9123-9, ####[facility] LABORATORYCLIA [id number] [place] [address] [place] Glucose [Mass/Vol] 76 mg/dL Normal 74-99 [facility] Comment on above: Order Comment: Speci men Type: BLOOD SPECIMENOrdering Facility: [facility] Address: [address] [place] [address] Result Comment: The [place] [employer] (ADA) provides guidance for cutoff values for fasting glucose and random glucose. The ADA defines fasting as no caloric intake for at least 8 hours. Fasting plasma glucose results between 100 to 125 mg/dL indicate increased risk for diabetes (prediabetes). Fasting plasma glucose results greater than or equal to 126 mg/dL meet the criteria for diagnosis of diabetes. In the absence of unequivocal hyperglycemia, results should be confirmed by repeat testing. In a patient with classic symptoms of hyperglycemia or hyperglycemic crisis, random plasma glucose results greater than or equal to 200 mg/dL meet the criteria for diagnosis of diabetes. Reference: Standards of Medical Care in Diabetes 2016, [place] [employer]. Diabetes Care. 2016.39(Suppl 1). Performed By: #### 1 9123-9, 89267-9 ####[facility] LABORATORYCLIA [id number] [place] [id number] [place] Potassium [Moles/Vol] 4.2 mmol/L Normal 3.7-5.1 [facility] Comment on above: Order Comment: Fredy dowd Type: BLOOD SPECIMENOrdering Facility: [facility] Address: [address] [place] [address] Performed By: #### 1 9123-9, 23127-9 ####[facility] LABORATORYCLIA [id number] [place] [id number] [place] Protein [Mass/Vol] 7.2 g/dL Normal 6.3-8.0 [facility] Comment on above: Order Comment: Garcíai men Type: BLOOD SPECIMENOrdering Facility: [facility] Address: [address] [place], [place] [address] Performed By: #### 1 9123-9, 42789-9 ####[facility] LABORATORYCLIA [id number] [place] [id number] [place] Sodium [Moles/Vol] 132 mmol/L Low 136-144 [facility] Comment on above: Order Comment: Speci men Type: BLOOD SPECIMENOrdering Facility: [facility] Address: [address] [place], [place] [address] Performed By: #### 1 9123-9, 67566-1 ####[facility] LABORATORYCLIA [id number] [place] [address] [facility] Urea nitrogen [Mass/Vol] 18 mg/dL Normal 7-21 [facility] Comment on above: Order Comment: Speci men Type: BLOOD SPECIMENOrdering Facility: [facility] Address: [address] [place] [address] Performed By: #### 1 9123-9, 04722-1 ####[facility] LABORATORYCLIA [id number] [place] [address] [facility] ECG COMPLETEon 06-14-2024 ECG COMPLETE Ventricular Rate : 8 2 BPM Atrial Rate : 82 BPM P-R Interval : 156 ms QRS Duration : 72 ms Q-T Interval : 364 ms QTC Calculation(Bazett) : 425 ms Calculated P State Line : 37 degrees Calculated R State [place] : -17 degrees Calculated T State [place] : 18 degrees NORMAL SINUS RHYTHM CANNOT RULE OUT ANTERIOR INFARCT , AGE UNDETERMINED ABNORMAL ECG NO PREVIOUS ECGS AVAILABLE Confirmed by MD BERTRAND CAROL ([id number]) on 12/10/2024 1:29:51 PM NAME : CHRISTIAN SUGGS PID : [id number] : 1945 Gender : Female Race : ORD : [id number] Procedure Date : Jun 14 2024 13:05:24 Edit Date : Dec 10 2024 13:29:54 Diagnosis: NORMAL SINUS RHYTHM CANNOT RULE OUT ANTERIOR INFARCT , AGE UNDETERMINED ABNORMAL ECG NO PREVIOUS ECGS AVAILABLE Confirmed by MD BERTRAND CAROL ([id number]) on 12/10/2024 1:29:51 PM Test Reason : Chest Pain Location : 4 : [facility] Overread By : MD BERTRAND CAROL Edited By : MD BERTRAND CAROL Referred By : , Acquired by : ROSALINA EDWARD [facility] ED NOTEon 06-14-2024 ED NOTE HNO ID: [id number] Author: BRODERICK IBARRA Tech Service: ? Author Type: Ict Educator Type: ED Notes Filed: 06/14/2024 16:52 Note Text: 2nd trop drawn and sent. Normal [facility] ED Triage Noteon 06-14-2024 ED Triage Note HNO ID: [id number] Author: CARYN ZAIDI APRN.CNP Service: Emergency Medicine Author Type: Nurse Practitioner Type: ED Triage Notes Filed: 06/14/2024 13:22 Note Text: ED TRIAGE PROVIDER NOTE Patient Name: Christian Suggs Service Date: 06/14/24 BRIEF HPI: This is a 78 year old female who presents to the ED with: Dizziness states that her has noticed nystagmus but none present in the triage process patient is thinks her shunt is not working and feels more swollen. Shunt was placed here at [place] was recently seen in [place] and diagnosed with vertigo. Patient denies chest pain shortness of breath or difficulty breathing. BRIEF EXAM: NAD Awake and Alert Non labored breathing INITIAL WORKUP AND DECISION MAKING: Orders Placed This Encounter CT BRAIN WO IVCON XR CHEST 2V FRONTAL/LAT COMP METABOLIC PANEL MAGNESIUM BLD High Sensitivity Troponin T with Reflex for ED Chest Pain CBC + DIFF Urinalysis w Microscopic, reflex Culture ECG COMPLETE EKG SIGNATURE: Caryn Zaidi APRN.BRIM SHAPER Normal [facility] HIGH SENSITIVITY TROPONIN T (INITIAL)on 06-14-2024 Troponin T.cardiac High sensitivity method [Mass/Vol] 17 ng/L High <12 [facility] Comment on above: Order Comment: Speci men Type: BLOOD SPECIMENOrdering Facility: [facility] Address: [address] [place] [address] Performed By: #### L [id number] ####[facility] LABORATORYCLIA [id number] [address] STATES OF [facility] HIGH SENSITIVITY TROPONIN T (SECOND)on 06-14-2024 Troponin T.cardiac High sensitivity method [Mass/Vol] 17 ng/L High <12 [facility] Comment on above: Order Comment: Speci men Type: BLOOD SPECIMENOrdering Facility: [facility] Address: [address] [place] [address] Performed By: #### L [id number] ####[facility] LABORATORYCLIA [id number] [place] [address] [facility] HIGH SENSITIVITY TROPONIN T (THIRD) 3 HRS AFTER INITIALon 06-14-2024 Troponin T.cardiac High sensitivity method [Mass/Vol] 16 ng/L High <12 [facility] Comment on above: Order Comment: Speci men Type: BLOOD SPECIMENOrdering Facility: [facility] Address: [address] [place] [address] Performed By: #### L [id number] ####[facility] LABORATORYCLIA [id number] [place] [address] [facility] Magnesium SerPl-mCncon 06-14 Magnesium [Mass/Vol] 2.2 mg/dL Normal 1.7-2.3 [facility] Comment on above: Order Comment: Speci men Type: BLOOD SPECIMENOrdering Facility: [facility] Address: [address] [place] [address] Performed By: #### 1 9123-9, 74945-5 ####[facility] LABORATORYCLIA [id number] [address] Urinalysis complete panel (U )on 06-14-2024 Bacteria LM.HPF (Urine sed) [#/Area] Few Abnormal None Seen [facility] Comment on above: Order Comment: Speci men Type: URINE SPECIMENOrdering Facility: [facility] Address: [address] [place] [address] Performed By: #### 6 30-4, 70541-7 ####[facility] LABORATORYCLIA [id number] [place], [place] [id number] [place] [address] Bilirubin Ql (U) Negative Normal Negative [facility] Comment on above: Order Comment: Speci men Type: URINE SPECIMENOrdering Facility: [facility] Address: [address] [place] [address] Performed By: #### 6 30-4, 97780-7 ####[facility] LABORATORYCLIA [id number] [address] Clarity (Unsp spec) Turbid Abnormal Clear [facility] Comment on above: Order Comment: Speci men Type: URINE SPECIMENOrdering Facility: [facility] Address: [address] [place] [address] Performed By: #### 6 30-4, 70944-9 ####[facility] LABORATORYCLIA [id number] [address] STATES OF [facility] Color (U) Light [place] Abnormal yellow [facility] Comment on above: Order Comment: Speci men Type: URINE SPECIMENOrdering Facility: [facility] Address: [address] [place] [address] Performed By: #### 6 30-4, 75077-8 ####[facility] LABORATORYCLIA [id number] [address] Epithelial cells LM.HPF (Urine sed) [#/Area] Few Normal [facility] Comment on above: Order Comment: Speci men Type: URINE SPECIMENOrdering Facility: [facility] Address: [address] [place] [address] Result Comment: Few Performed By: #### 6 30-4, 95334-7 ####[facility] LABORATORYCLIA [id number] [address] [place] Glucose Test strip (U) [Mass/Vol] Negative Normal Trace, Negative [facility] Comment on above: Order Comment: Speci men Type: URINE SPECIMENOrdering Facility: [facility] Address: [address] [place] [address] Performed By: #### 6 30-4, 11434-3 ####[facility] LABORATORYCLIA [id number] [address] Hemoglobin Ql (U) Negative Normal Negative, Trace [facility] Comment on above: Order Comment: Speci men Type: URINE SPECIMENOrdering Facility: [facility] Address: [address] [place] [address] Performed By: #### 6 30-4, 58512-6 ####[facility] LABORATORYCLIA [id number] [address] [place] Ketones Ql (U) 1+ Abnormal Negative, Trace [facility] Comment on above: Order Comment: Speci men Type: URINE SPECIMENOrdering Facility: [facility] Address: [address] [place] [address] Performed By: #### 6 30-4, 42975-9 ####[facility] LABORATORYCLIA [id number] [address] Leukocyte esterase Test strip Ql (U) 500 Neto/uL Abnormal Negative, 25 Neto/uL [facility] Comment on above: Order Comment: Speci men Type: URINE SPECIMENOrdering Facility: [facility] Address: [address] [place] [address] Performed By: #### 6 30-4, 71909-0 ####[facility] LABORATORYCLIA [id number] [address] [place] Nitrite Ql (U) 2+ Abnormal Negative [facility] Comment on above: Order Comment: Speci men Type: URINE SPECIMENOrdering Facility: [facility] Address: [address] [place] [address] Performed By: #### 6 30-4, 75385-8 ####[facility] LABORATORYCLIA [id number] [address] [place] pH (U) 8.0 [pH] Normal 5.0-8.0 [facility] Comment on above: Order Comment: Speci men Type: URINE SPECIMENOrdering Facility: [facility] Address: [address] [place] [address] Performed By: #### 6 30-4, 11208-2 ####[facility] LABORATORYCLIA [id number] [address] STATES [facility] Protein (U) [Mass/Vol] Trace Normal Trace , Negative [facility] Comment on above: Order Comment: Speci men Type: URINE SPECIMENOrdering Facility: [facility] Address: [address] [place] [address] Performed By: #### 6 30-4, 31480-2 ####[facility] LABORATORYCLIA [id number] [place] [address] [place] RBC LM.HPF (Urine sed) [#/Area] 3-5 /HPF Abnormal 0-3 /HPF [facility] Comment on above: Order Comment: Speci men Type: URINE SPECIMENOrdering Facility: [facility] Address: [address] [place] [address] Performed By: #### 6 30-4, 47524-0 ####[facility] LABORATORYCLIA [id number] [address] [place] Specific gravity (U) [Rel density] 1.011 Normal 1.005-1.030 [facility] Comment on above: Order Comment: Speci men Type: URINE SPECIMENOrdering Facility: [facility] Address: [address] [place] [address] Performed By: #### 6 30-4, 13166-4 ####[facility] LABORATORYCLIA [id number] [address] Triple phosphate crystals LM.HPF (Urine sed) [#/Area] Few Abnormal None Seen [facility] Comment on above: Order Comment: Speci men Type: URINE SPECIMENOrdering Facility: [facility] Address: [address] [place] [address] Performed By: #### 6 30-4, 14853-9 ####[facility] LABORATORYCLIA [id number] [address] Urobilinogen Ql (U) Normal Normal Normal [facility] Comment on above: Order Comment: Speci men Type: URINE SPECIMENOrdering Facility: [facility] Address: [address] [place] [address] Performed By: #### 6 30-4, 14703-1 ####[facility] LABORATORYCLIA [id number] [address] [place] WBC LM.HPF (Urine sed) [#/Area] 11-25 /HPF Abnormal 0-5 /HPF [facility] Comment on above: Order Comment: Speci men Type: URINE SPECIMENOrdering Facility: [facility] Address: [facility] [place] [address] Performed By: #### 6 30-4, 61392-9 ####[facility] LABORATORYCLIA [id number] [place] [id number] [place] XR CHEST 2V FRONTAL/LATon XR CHEST 2V FRONTAL/LAT * * *Final Repor t* * * DATE OF EXAM: Jun 14 2024 2:10PM [id number] - XR CHEST 2V FRONTAL/LAT / PROCEDURE REASON: Syncope/presyncope, cardiac cause suspected * * * * Physician Interpretation * * * * EXAMINATION: CHEST RADIOGRAPH (2 VIEW FRONTAL and LATERAL) CLINICAL HISTORY: Syncope/presyncope, cardiac cause suspected MQ: XC2_6 EXAM DATE/TIME: 06/14/2024 2:10 PM COMPARISON: Chest radiograph 05/19/2024 RESULT: Lines, tubes, and devices: BP shunt tubing overlies the right chest wall and right abdomen. Lungs and pleura: No consolidation. No lung mass. No pleural effusion. No pneumothorax. Cardiomediastinal silhouette: Normal cardiomediastinal silhouette. Bones and soft tissues: Degenerative changes are present within the thoracic spine. Partially imaged lower spinal fusion hardware IMPRESSION: No acute radiographic abnormality. Irrigation District Manager: TERESA Transcribe Date/Time: Jun 14 2024 2:48P Dictated by : SOFIA CAMEJO MD This examination was interpreted and the report reviewed and electronically signed by: SOFIA CAMEJO MD on Jun 14 2024 2:49PM EST [id number] Normal [facility] XR DESIGNER/WRITER SHUNT SERIES 5V -NBon 06-14-2024 XR DESIGNER/WRITER SHUNT SERIES 5V -NB * * *Final Report* * * DATE OF EXAM: Jun 14 2024 2:00PM [id number] - XR DESIGNER/WRITER SHUNT SERIES 5V -NB / PROCEDURE REASON: Post operative assessment * * * * Physician Interpretation * * * * DESIGNER/WRITER SHUNT SERIES CLINICAL INDICATION: Nausea and vomiting COMPARISON: None FINDINGS: Frontal and lateral views of the skull demonstrate a ventricular shunt by right frontal approach. No discontinuity or kinking in shunt tubing. Frontal view of the neck and chest demonstrate the shunt tubing to course down the right side of the neck and chest. No shunt discontinuity or kinking. Subsegmental atelectasis at the lung bases. No airspace consolidation or lung mass. No pleural effusion or pneumothorax. Heart size is normal. Frontal and lateral views of the abdomen demonstrate the shunt tubing coursing on the right side of the abdomen terminating in the right lower quadrant posteriorly. No discontinuity or kinking of the shunt tubing. Intestinal gas pattern is nonspecific. No dilated bowel loops. Spinal fixation hardware from L2 to S1. Right hip replacement noted. IMPRESSION: Right-sided ventriculoperitoneal shunt without discontinuity or kinking in the tubing. Irrigation District Manager: PSCB Transcribe Date/Time: Jun 14 2024 2:19P Dictated by : KRISTINA HARRISON MD This examination was interpreted and the report reviewed and electronically signed by: KRISTINA HARRISON MD on Jun 14 2024 2:26PM EST [id number] Normal [facility] ED NOTEon 06-13-2024 ED NOTE HNO ID: [id number] Author: CARLOS GARCIA RN Service: Emergency Medicine Author Type: Registered Nurse Type: ED Notes Filed: 06/13/2024 00:23 Note Text: Patient requests to go home. She is alert, talkative, no distress noted. WC to bathroom with assistance. Patient recommended to allow her to help her at home to avoid falls. Patient again given opportunity to stay, she declines. Patient and instructed to pick pulling machine tender scrip for meclizine tomorrow. Patient instructed to follow up with PCP, return with any new, worsening, or recurrent symptoms. Verbalizes understanding of all instructions. WC to vehicle, no distress. Normal [facility] Basic metabolic 2000 panelon 06-12-2024 Anion gap [Moles/Vol] 12 mmol/L Normal 8-15 [facility] Comment on above: Order Comment: Speci men Type: BLOOD SPECIMENOrdering Facility: [facility] Address: [address] [place] [address] Performed By: #### 2 4321-2, 17480-2 ####[facility] [place] LABCLIA [id number] [place] [address] [place] Calcium [Mass/Vol] 9.6 mg/dL Normal 8.5-10.2 [facility] Comment on above: Order Comment: Speci men Type: BLOOD SPECIMENOrdering Facility: [facility] Address: [address] [place] [address] Performed By: #### 2 4321-2, ####[facility] [place] LABCLIA [id number] [place] [address] [place] Chloride [Moles/Vol] 104 mmol/L Normal 98-107 [facility] Comment on above: Order Comment: Speci men Type: BLOOD SPECIMENOrdering Facility: [facility] Address: [address] [place] [address] Performed By: #### 2 4321-2, ####[facility] [place] LABCLIA [id number] [facility] [place] [address] [place] CO2 [Moles/Vol] 23 mmol/L Normal 22-30 [facility] Comment on above: Order Comment: Speci men Type: BLOOD SPECIMENOrdering Facility: [facility] Address: [address] [place] [address] Performed By: #### 2 4321-2, ####[facility] [place] LABCLIA [id number] [facility] [place] [address] [place] Creatinine [Mass/Vol] 0.67 mg/dL Normal 0.58-0.96 [facility] Comment on above: Order Comment: Speci men Type: BLOOD SPECIMENOrdering Facility: [facility] Address: [address] [place] [address] Performed By: #### 2 4321-2, ####[facility] [place] LABCLIA [id number] [facility] [place] [address] [place] Creatinine and Glomerular filtration rate.predicted panel (S/P/Bld) 88 mL/min/1.73m??? Normal >=60 [facility] Comment on above: Order Comment: Speci men Type: BLOOD SPECIMENOrdering Facility: [facility] Address: [address] [place] [address] Result Comment: Anna mated Glomerular Filtration Rate (eGFR) is calculated using the 2020 CKD-EPI creatinine equation. This equation utilizes serum creatinine, sex, and age as parameters. The creatinine assay has traceable calibration to isotope dilution-mass spectrometry. Refer to KDIGO guidelines for clinical interpretation. In patients with unstable renal function, e.g. those with acute kidney injury, the eGFR may not accurately reflect actual GFR. Performed By: #### 2 4320-08, ####[facility] [employer] LABLiveAir NetworksIA [id number] [place] [address] [place] Glucose [Mass/Vol] 115 mg/dL High 74-99 [facility] Comment on above: Order Comment: Fredy dowd Type: BLOOD SPECIMENOrdering Facility: [facility] Address: [address] [place] [address] Result Comment: The [place] [employer] (ADA) provides guidance for cutoff values for fasting glucose and random glucose. The ADA defines fasting as no caloric intake for at least 8 hours. Fasting plasma glucose results between 100 to 125 mg/dL indicate increased risk for diabetes (prediabetes). Fasting plasma glucose results greater than or equal to 126 mg/dL meet the criteria for diagnosis of diabetes. In the absence of unequivocal hyperglycemia, results should be confirmed by repeat testing. In a patient with classic symptoms of hyperglycemia or hyperglycemic crisis, random plasma glucose results greater than or equal to 200 mg/dL meet the criteria for diagnosis of diabetes. Reference: Standards of Medical Care in Diabetes 2016, [place] [employer]. Diabetes Care. 2016.39(Suppl 1). Performed By: #### 2 4320-, ####[facility] [employer] LABCLIA [id number] [place] [address] [place] Potassium [Moles/Vol] 3.8 mmol/L Normal 3.7-5.1 [facility] Comment on above: Order Comment: Fredy dowd Type: BLOOD SPECIMENOrdering Facility: [facility] Address: [address] [id number] Performed By: #### 2 4320-, ####[facility] [place] LABCLIA [id number] [place] [address] [place] [facility] Sodium [Moles/Vol] 139 mmol/L Normal 136-144 [facility] Comment on above: Order Comment: Speci men Type: BLOOD SPECIMENOrdering Facility: [facility] Address: [address] [place] [address] Performed By: #### 2 4321-2, 22009-2 ####[facility] [place] LABCLIA [id number] [place] [address] [place] [facility] Urea nitrogen [Mass/Vol] 11 mg/dL Normal 7-21 [facility] Comment on above: Order Comment: Speci men Type: BLOOD SPECIMENOrdering Facility: [facility] Address: [address] [place] [address] Performed By: #### 2 4321-2, 89229-4 ####[facility] [place] LABCLIA [id number] [place] [address] [place] [facility] CBC W Auto Differential pane l (Bld)on 06-12-2024 Basophils (Bld) [#/Vol] 10*3/uL Normal <0.11 [facility] Comment on above: Order Comment: Speci men Type: BLOOD SPECIMENOrdering Facility: [facility] Address: [address] [place] [address] Performed By: #### 5 7021-8 ####[facility] [place] LABCLIA [id number] [place] [address] [place] Basophils/100 WBC (Bld) 0.3 % Normal [facility] Comment on above: Order Comment: Speci men Type: BLOOD SPECIMENOrdering Facility: [facility] Address: [address] [place] [address] Performed By: #### 5 7021-8 ####[facility] [place] LABCLIA [id number] [place] [address] [facility] Differential cell count method Nom (Bld) Auto Normal [facility] Comment on above: Order Comment: Speci men Type: BLOOD SPECIMENOrdering Facility: [facility] Address: [address] [place] [address] Performed By: #### 5 7021-8 ####[facility] [place] LABCLIA [id number] [facility] [place] [address] [place] Eosinophils (Bld) [#/Vol] 0.03 10*3/uL Normal <0.46 [facility] Comment on above: Order Comment: Speci men Type: BLOOD SPECIMENOrdering Facility: [facility] Address: [address] [place] [address] Performed By: #### 5 7021-8 ####[facility] [place] LABCLIA [id number] [facility] [place] [address] [facility] [place] Eosinophils/100 WBC (Bld) 0.5 % Normal [facility] Comment on above: Order Comment: Speci men Type: BLOOD SPECIMENOrdering Facility: [facility] Address: [address] [place] [address] Performed By: #### 5 7021-8 ####[facility] [place] LABCLIA [id number] [place] [address] [place] Erythrocyte distribution width (RBC) [Ratio] 14.5 % Normal 11.5-15.0 [facility] Comment on above: Order Comment: Speci men Type: BLOOD SPECIMENOrdering Facility: [facility] Address: [address] [place] [address] Performed By: #### 5 7021-8 ####[facility] [place] LABCLIA [id number] [place] [address] [place] Hematocrit (Bld) [Volume fraction] 42.9 % Normal 36.0-46.0 [facility] Comment on above: Order Comment: Speci men Type: BLOOD SPECIMENOrdering Facility: [facility] Address: [address] [place] [address] Performed By: #### 5 7021-8 ####[facility] [place] LABCLIA [id number] [facility] [place] [address] [place] Hemoglobin (Bld) [Mass/Vol] 13.8 g/dL Normal 11.5-15.5 [facility] Comment on above: Order Comment: Speci men Type: BLOOD SPECIMENOrdering Facility: [facility] Address: [address] [place] [address] Performed By: #### 5 7021-8 ####[facility] [place] LABCLIA [id number] [place] [address] [place] Immature granulocytes (Bld) [#/Vol] 10*3/uL Normal <0.10 [facility] Comment on above: Order Comment: Speci men Type: BLOOD SPECIMENOrdering Facility: [facility] Address: [address] [place] [address] Performed By: #### 5 7021-8 ####[facility] [place] LABCLIA [id number] [place] [address] [place] Immature granulocytes/100 WBC (Bld) 0.2 % Normal [facility] Comment on above: Order Comment: Speci men Type: BLOOD SPECIMENOrdering Facility: [facility] Address: [address] [place] [address] Performed By: #### 5 7021-8 ####[facility] [place] LABCLIA [id number] [place] [address] [place] Lymphocytes (Bld) [#/Vol] 1.26 10*3/uL Normal 1.00-4.00 [facility] Comment on above: Order Comment: Speci men Type: BLOOD SPECIMENOrdering Facility: [facility] Address: [address] [place] [address] Performed By: #### 5 7021-8 ####[facility] [place] LABCLIA [id number] [place] [address] [place] Lymphocytes/100 WBC (Bld) 21.5 % Normal [facility] Comment on above: Order Comment: Speci men Type: BLOOD SPECIMENOrdering Facility: [facility] Address: [address] [place] [address] Performed By: #### 5 7021-8 ####[facility] [place] LABCLIA [id number] [place] [address] [facility] MCH (RBC) [Entitic mass] 29.1 pg Normal 26.0-34.0 [facility] Comment on above: Order Comment: Speci men Type: BLOOD SPECIMENOrdering Facility: [facility] Address: [address] [place] [address] Performed By: #### 5 7021-8 ####[facility] [place] LABCLIA [id number] [place] [address] [facility] MCHC (RBC) [Mass/Vol] 32.2 g/dL Normal 30.5-36.0 [facility] Comment on above: Order Comment: Speci men Type: BLOOD SPECIMENOrdering Facility: [facility] Address: [address] [place] [address] Performed By: #### 5 7021-8 ####[facility] LABCLIA [id number] [place] [address] [facility] MCV (RBC) [Entitic vol] 90.5 fL Normal 80.0-100.0 [facility] Comment on above: Order Comment: Speci men Type: BLOOD SPECIMENOrdering Facility: [facility] Address: [address] [place] [address] Performed By: #### 5 7021-8 ####[facility] LABCLIA [id number] [place] [address] [facility] Monocytes (Bld) [#/Vol] 0.31 10*3/uL Normal <0.87 [facility] Comment on above: Order Comment: Speci men Type: BLOOD SPECIMENOrdering Facility: [facility] Address: [address] [place] [address] Performed By: #### 5 7021-8 ####[facility] LABCLIA [id number] [place] [address] [facility] Monocytes/100 WBC (Bld) 5.3 % Normal [facility] Comment on above: Order Comment: Speci men Type: BLOOD SPECIMENOrdering Facility: [facility] Address: [address] [place] [address] Performed By: #### 5 7021-8 ####[facility] [place] LABCLIA [id number] [place] [address] [place] Neutrophils (Bld) [#/Vol] 4.22 10*3/uL Normal 1.45-7.50 [facility] Comment on above: Order Comment: Speci men Type: BLOOD SPECIMENOrdering Facility: [facility] Address: [address] [place] [address] Performed By: #### 5 7021-8 ####[facility] [place] LABCLIA [id number] [place] [address] [place] Neutrophils/100 WBC (Bld) 72.2 % Normal [facility] Comment on above: Order Comment: Speci men Type: BLOOD SPECIMENOrdering Facility: [facility] Address: [address] [place] [address] Performed By: #### 5 7021-8 ####[facility] [place] LABCLIA [id number] [place] [address] [place] Nucleated RBC (Bld) [#/Vol] Normal [facility] Comment on above: Order Comment: Speci men Type: BLOOD SPECIMENOrdering Facility: [facility] Address: [address] [place] [address] Performed By: #### 5 7021-8 ####[facility] [place] LABCLIA [id number] [place] [address] [place] Nucleated RBC/100 WBC (Bld) [Ratio] Normal [facility] Comment on above: Order Comment: Speci men Type: BLOOD SPECIMENOrdering Facility: [facility] Address: [facility] [place] [address] Performed By: #### 5 7021-8 ####[facility] [place] LABCLIA [id number] [place] [address] [place] Platelet mean volume (Bld) [Entitic vol] 10.1 fL Normal 9.0-12.7 [facility] Comment on above: Order Comment: Speci men Type: BLOOD SPECIMENOrdering Facility: [facility] Address: [address] [place] [address] Performed By: #### 5 7021-8 ####[facility] LABCLIA [id number] [place] [address] [place] Platelets (Bld) [#/Vol] 188 10*3/uL Normal 150-400 [facility] Comment on above: Order Comment: Speci men Type: BLOOD SPECIMENOrdering Facility: [facility] Address: [address] [place] [address] Performed By: #### 5 7021-8 ####[facility] LABCLIA [id number] [place] [address] [place] RBC (Bld) [#/Vol] 4.74 10*6/uL Normal 3.90-5.20 [facility] Comment on above: Order Comment: Speci men Type: BLOOD SPECIMENOrdering Facility: [facility] Address: [address] [place] [address] Performed By: #### 5 7021-8 ####[facility] LABCLIA [id number] [place] [address] [place] WBC (Bld) [#/Vol] 5.85 10*3/uL Normal 3.70-11.00 [facility] Comment on above: Order Comment: Speci men Type: BLOOD SPECIMENOrdering Facility: [facility] Address: [address] [place] [address] Performed By: #### 5 7021-8 ####[facility] LABCLIA [id number] [place] [address] [facility] [address] BRAIN WO IVCONon 06-12-20 CT BRAIN WO IVCON * * *Final Report* * * DATE OF EXAM: Jun 12 2024 10:41PM [facility] 0504 - CT BRAIN WO IVCON / PROCEDURE REASON: vertigo first episode * * * * Physician Interpretation * * * * EXAMINATION: CT BRAIN WO IVCON CLINICAL HISTORY: Dizziness TECHNIQUE: Serial axial images without IV contrast were obtained from the vertex to the foramen magnum. MQ: CTBWO_3 CT Radiation dose: Integrated Dose-Length Product (DLP) for this visit = 706.22 mGy*cm CT Dose Reduction Employed: No dose reduction techniques were required COMPARISON: 07/22/2023 RESULT: Localizer images: Unremarkable. Post-operative change: None. Acute change: No evidence of an acute infarct or other acute parenchymal process. Hemorrhage: No evidence of acute intracranial hemorrhage. ECASS hemorrhagic transformation score: Not Applicable Mass Lesion / Mass Effect: There is no evidence of an intracranial mass or extraaxial fluid collection. No significant mass effect. Chronic change: None apparent. Parenchyma: There is no significant volume loss. The brain parenchyma is otherwise within normal limits for age. Ventricles: The ventricles are within normal limits of size and configuration for age. Right frontal approach ventriculostomy catheter with tip terminating in the left lateral ventricle. Paranasal sinuses and skull base: The visualized paranasal sinuses are grossly clear. The skull base and imaged soft tissues are unremarkable. IMPRESSION: No acute process Irrigation District Manager: PSCB Transcribe Date/Time: Jun 12 2024 11:09P Dictated by : BRANDI TOPETE MD This examination was interpreted and the report reviewed and electronically signed by: BRANDI TOPETE MD on Jun 12 2024 11:11PM EST [id number] Normal [facility] ED NOTEon 06-12-2024 ED NOTE HNO ID: [id number] Author: DARRIAN MYRES RN Service: ? Author Type: Registered Nurse Type: ED Notes Filed: 06/12/2024 21:35 Note Text: Pt comes to ED c/o dizziness which caused her to get nauseas with vomiting that started this morning. Pt states that the dizziness gets worse when she suddenly moves and turns head to the left. She states that the dizziness feels like the room is spinning. Pt's spouse mentions that pt has a shunt in her brain that drains to her stomach and voiced concern about that being blocked. Pt is AANDOx3, vss. Will continue to monitor. Normal [facility] ED PROV NOTEon 06-12-2024 ED PROV NOTE HNO ID: [id number] Author: MATEO HUMMEL MD Service: Emergency Medicine Author Type: Physician Type: ED Provider Notes Filed: 06/12/2024 23:34 Note Text: ED Provider Note Patient Name: Christian Suggs : 1945 SERVICE DATE: 06/12/24 History Patient presents with: Dizziness Nausea The patient is an 78-year-old female who is present today with complaint of dizziness that is causing her to have nausea and vomiting. Patient states that she went to get out of bed this morning and became very dizzy. She states that she then went try to eat and started vomiting immediately afterwards. Ever since then as long as she stays still in 1 position she has no dizziness and no nausea. Anytime she turns her head quickly particular to the left or changes position quickly such as sitting up or lying back she states the world starts going in circles and this makes her very nauseous and then she will vomit. She thought it would go away with rest and so she has been managing her symptoms at home. She still continued have symptoms into the evening and so her bring her in for evaluation. His biggest concern at this could be a malfunction of her DESIGNER/WRITER shunt. She has this due to normal pressure hydrocephalus. Patient denies any changes to her gait. He is slightly unsteady at baseline. She denies any vision changes. She denies any numbness tingling or weakness to any of her extremities. No previous history of any vertigo. Denies any runny nose congestion or cough. Denies any ear pain or pressure. No previous medication changes nor she having any nausea vomiting or diarrhea prior to today's symptoms. PAST MEDICAL HISTORY Diagnosis Date Allergic rhinitis Arthritis Back C. difficile enteritis History of back surgery 07/21/2011 HLD (hyperlipidemia) Lymphocytic colitis Melanoma (HCC) right thigh NPH (normal pressure hydrocephalus) (HCC) [facility] (obstructive sleep apnea) Rotator cuff tear arthropathy of right shoulder 07/21/2012 Urinary retention PAST SURGICAL HISTORY Procedure Laterality Date ARTHRP KNE CONDYLEANDPLATU MEDIALANDLAT COMPARTMENTS Right 10/2014 CARPAL TUNNEL 2009 bilateral CHOLECYSTECTOMY HX N/A COLONOSCOPY FLX DX W/COLLJ SPEC WHEN PFRMD 02/02/2016 JOINT REPLACEMENT HX ORTHOPEDICS SURGERY HX PAST SURGICAL HISTORY OF 1999 bladder repair PAST SURGICAL HISTORY OF 2007 melanoma removal FAMILY HISTORY Problem Relation Age of Onset Heart Father late in life Breast Cancer Maternal Aunt Diabetes Other none Colon Cancer Other none Coronary Artery Disease Other none Social History Tobacco Use Smoking status: Never Smokeless tobacco: Never Vaping Use Vaping status: Never Used Substance and Sexual Activity Alcohol use: No Drug use: No Sexual activity: Not Currently Partners: Male ALLERGIES Allergen Reactions Hydrocodone Bitartr* GI Upset Mesalamine Myalgia Oxycodone GI Upset Flagyl [Nitroimidaz* Other: See Comments metal mouth Scopolamine Other: See Comments Review of Systems Constitutional: Negative for activity change, appetite change, chills, fatigue and fever. HENT: Negative for congestion, ear pain, rhinorrhea and sore throat. Respiratory: Negative for cough and shortness of breath. Cardiovascular: Negative for chest pain and palpitations. Gastrointestinal: Positive for nausea and vomiting. Negative for abdominal pain and diarrhea. Genitourinary: Negative for dysuria, frequency and urgency. Musculoskeletal: Negative for arthralgias and myalgias. Skin: Negative for rash and wound. Neurological: Positive for dizziness. Negative for tremors, facial asymmetry, speech difficulty, weakness, light-headedness, numbness and headaches. Psychiatric/Behavioral: Negative for self-injury and suicidal ideas. All other systems reviewed and are negative. Physical Exam Vitals [06/12/242128] BP Pulse Temp Temp src Resp SpO2 Weight Height 164/94 84 36.5 ?C (97.7 ?F) Temporal 18 96 % 72.8 kg (160 lb 9.6 oz) -- Physical Exam Vitals and nursing note reviewed. Constitutional: General: She is not in acute distress. Appearance: She is well-developed. HENT: Head: Normocephalic and atraumatic. Nose: Nose normal. Mouth/Throat: Mouth: Mucous membranes are moist. Eyes: Pupils: Pupils are equal, round, and reactive to light. Comments: Patient has positive left-sided nystagmus with fatigue at about 15 beats. Cardiovascular: Rate and Rhythm: Normal rate and regular rhythm. Heart sounds: Normal heart sounds. No murmur heard. No friction rub. No gallop. Pulmonary: Effort: Pulmonary effort is normal. No respiratory distress. Breath sounds: Normal breath sounds. Abdominal: General: Bowel sounds are normal. There is no distension. Palpations: Abdomen is soft. Tenderness: There is no abdominal tenderness. Musculoskeletal: General: Normal range of motion. Cervical back: (more content not included)... Normal [facility] Magnesium SerPl-mCncon 06-12 Magnesium [Mass/Vol] 2.1 mg/dL Normal 1.7-2.3 [facility] Comment on above: Order Comment: Speci men Type: BLOOD SPECIMENOrdering Facility: [facility] Address: [address] [place] [address] Performed By: #### 2 4321-2, 36845-8 ####[facility] [employer] LABCLIA [id number] [place] [address] [facility] CBC panel Auto (Bld)on 05-19 Erythrocyte distribution width (RBC) [Ratio] 14.9 % Normal 11.5-15.0 [facility] Comment on above: Order Comment: Speci men Type: BLOOD SPECIMENOrdering Facility: [facility] Address: [address] [place] [address] Performed By: #### 5 8410-2 ####[facility] LABCLIA [id number] [place] [address] [place] Hematocrit (Bld) [Volume fraction] 42.0 % Normal 36.0-46.0 [facility] Comment on above: Order Comment: Speci men Type: BLOOD SPECIMENOrdering Facility: [facility] Address: [address] [place] [address] Performed By: #### 5 8410-2 ####[facility] [place] LABCLIA [id number] [place] [address] [place] Hemoglobin (Bld) [Mass/Vol] 13.4 g/dL Normal 11.5-15.5 [facility] Comment on above: Order Comment: Speci men Type: BLOOD SPECIMENOrdering Facility: [facility] Address: [address] [place] [address] Performed By: #### 5 8410-2 ####[facility] [employer] LABCLIA [id number] [place] [address] [facility] MCH (RBC) [Entitic mass] 28.9 pg Normal 26.0-34.0 [facility] Comment on above: Order Comment: Speci men Type: BLOOD SPECIMENOrdering Facility: [facility] Address: [address] [place] [address] Performed By: #### 5 8410-2 ####[facility] [place] LABCLIA [id number] [place] [address] [facility] MCHC (RBC) [Mass/Vol] 31.9 g/dL Normal 30.5-36.0 [facility] Comment on above: Order Comment: Speci men Type: BLOOD SPECIMENOrdering Facility: [facility] Address: [address] [place] [address] Performed By: #### 5 8410-2 ####[facility] LABCLIA [id number] [facility] [place] [address] [facility] MCV (RBC) [Entitic vol] 90.7 fL Normal 80.0-100.0 [facility] Comment on above: Order Comment: Speci men Type: BLOOD SPECIMENOrdering Facility: [facility] Address: [address] [place] [address] Performed By: #### 5 8410-2 ####[facility] LABCLIA [id number] [place] [place] [address] [facility] Platelet mean volume (Bld) [Entitic vol] 11.4 fL Normal 9.0-12.7 [facility] Comment on above: Order Comment: Speci men Type: BLOOD SPECIMENOrdering Facility: [facility] Address: [address] [place] [address] Performed By: #### 5 8410-2 ####[facility] LABCLIA [id number] [facility] [place] [address] [facility] Platelets (Bld) [#/Vol] 161 10*3/uL Normal 150-400 [facility] Comment on above: Order Comment: Speci men Type: BLOOD SPECIMENOrdering Facility: [facility] Address: [address] [place] [address] Performed By: #### 5 8410-2 ####[facility] LABCLIA [id number] [place] [address] [facility] RBC (Bld) [#/Vol] 4.63 10*6/uL Normal 3.90-5.20 [facility] Comment on above: Order Comment: Speci men Type: BLOOD SPECIMENOrdering Facility: [facility] Address: [address] [place] [address] Performed By: #### 5 8410-2 ####[facility] LABCLIA [id number] [place] [address] [facility] WBC (Bld) [#/Vol] 5.85 10*3/uL Normal 3.70-11.00 [facility] Comment on above: Order Comment: Speci men Type: BLOOD SPECIMENOrdering Facility: [facility] Address: [address] [place] [address] Performed By: #### 5 8410-2 ####[facility] LABCLIA [id number] [place] [address] [facility] Comprehensive metabolic 2000 panelon 05-19-2024 Albumin [Mass/Vol] 3.8 g/dL Low 3.9-4.9 [facility] Comment on above: Order Comment: Speci men Type: BLOOD SPECIMENOrdering Facility: [facility] Address: [address] [place] [address] Performed By: #### 2 4323-8, 40400-8, 3040-3 ####[facility] LABCLIA [id number] [place] [address] [facility] ALP [Catalytic activity/Vol] 87 U/L Normal 34-123 [facility] Comment on above: Order Comment: Speci men Type: BLOOD SPECIMENOrdering Facility: [facility] Address: [address] [place] [address] Performed By: #### 2 4323-8, 74800-4, 3040-3 ####[facility] [place] LABCLIA [id number] [place] [address] [place] ALT With P-5'-P [Catalytic activity/Vol] 16 U/L Normal 7-38 [facility] Comment on above: Order Comment: Speci men Type: BLOOD SPECIMENOrdering Facility: [facility] Address: [address] [place] [address] Performed By: #### 2 4323-8, 36345-9, 3040-3 ####[facility] [place] LABCLIA [id number] [place] [address] [place] Anion gap [Moles/Vol] 9 mmol/L Normal 8-15 [facility] Comment on above: Order Comment: Speci men Type: BLOOD SPECIMENOrdering Facility: [facility] Address: [address] [place] [address] Performed By: #### 2 4323-8, 97764-5, 3040-3 ####[facility] [place] LABCLIA [id number] [place] [address] [place] AST With P-5'-P [Catalytic activity/Vol] 19 U/L Normal 13-35 [facility] Comment on above: Order Comment: Speci men Type: BLOOD SPECIMENOrdering Facility: [facility] Address: [address] [place] [address] Performed By: #### 2 4323-8, 87128-8, 3040-3 ####[facility] [place] LABCLIA [id number] [place] [address] [place] [facility] Bilirubin [Mass/Vol] mg/dL Low 0.2-1.3 [facility] Comment on above: Order Comment: Speci men Type: BLOOD SPECIMENOrdering Facility: [facility] Address: [address] [place], [place] [address] Performed By: #### 2 4323-8, 89311-0, 3040-3 ####[facility] [place] LABCLIA [id number] [place] [address] [place] Calcium [Mass/Vol] 9.3 mg/dL Normal 8.5-10.2 [facility] Comment on above: Order Comment: Speci men Type: BLOOD SPECIMENOrdering Facility: [facility] Address: [address] [place] [address] Performed By: #### 2 4323-8, 06379-0, 3040-3 ####[facility] [place] LABCLIA [id number] [facility] [address] [place] Chloride [Moles/Vol] 105 mmol/L Normal 98-107 [facility] Comment on above: Order Comment: Speci men Type: BLOOD SPECIMENOrdering Facility: [facility] Address: [address] [place] [address] Performed By: #### 2 4323-8, 57631-2, 3040-3 ####[facility] [place] LABCLIA [id number] [facility] [address] [place] CO2 [Moles/Vol] 27 mmol/L Normal 22-30 [facility] Comment on above: Order Comment: Speci men Type: BLOOD SPECIMENOrdering Facility: [facility] Address: [address] [place] [address] Performed By: #### 2 4323-8, 12380-5, 3040-3 ####[facility] [place] LABCLIA [id number] [place] [address] [place] Creatinine [Mass/Vol] 0.78 mg/dL Normal 0.58-0.96 [facility] Comment on above: Order Comment: Speci men Type: BLOOD SPECIMENOrdering Facility: [facility] Address: [address] [place] [address] Performed By: #### 2 4323-8, 31055-7, 3040-3 ####[facility] [place] LABCLIA [id number] [place] [address] [facility] [place] Creatinine and Glomerular filtration rate.predicted panel (S/P/Bld) 77 mL/min/1.73m??? Normal >=60 [facility] Comment on above: Order Comment: Fredy odwd Type: BLOOD SPECIMENOrdering Facility: [facility] Address: [address] [place] [address] Result Comment: Anna mated Glomerular Filtration Rate (eGFR) is calculated using the 2020 CKD-EPI creatinine equation. This equation utilizes serum creatinine, sex, and age as parameters. The creatinine assay has traceable calibration to isotope dilution-mass spectrometry. Refer to KDIGO guidelines for clinical interpretation. In patients with unstable renal function, e.g. those with acute kidney injury, the eGFR may not accurately reflect actual GFR. Performed By: #### 2 4323-8, 00423-4, 3040-3 ####[facility] LABIA [id number] [place] [address] [place] Glucose [Mass/Vol] 95 mg/dL Normal 74-99 [facility] Comment on above: Order Comment: Fredy dowd Type: BLOOD SPECIMENOrdering Facility: [facility] Address: [address] [place] [address] Result Comment: The [place] [employer] (ADA) provides guidance for cutoff values for fasting glucose and random glucose. The ADA defines fasting as no caloric intake for at least 8 hours. Fasting plasma glucose results between 100 to 125 mg/dL indicate increased risk for diabetes (prediabetes). Fasting plasma glucose results greater than or equal to 126 mg/dL meet the criteria for diagnosis of diabetes. In the absence of unequivocal hyperglycemia, results should be confirmed by repeat testing. In a patient with classic symptoms of hyperglycemia or hyperglycemic crisis, random plasma glucose results greater than or equal to 200 mg/dL meet the criteria for diagnosis of diabetes. Reference: Standards of Medical Care in Diabetes 2016, [place] [employer]. Diabetes Care. 2016.39(Suppl 1). Performed By: #### 2 4323-8, 40816-2, 3040-3 ####[facility] LABCLIA [id number] [place] [address] [place] Potassium [Moles/Vol] 4.0 mmol/L Normal 3.7-5.1 [facility] Comment on above: Order Comment: Fredy dowd Type: BLOOD SPECIMENOrdering Facility: [facility] Address: [address] [place], [place] [address] Performed By: #### 2 4323-8, 92330-6, 3040-3 ####[facility] LABCLIA [id number] [place] [address] [place] Protein [Mass/Vol] 6.8 g/dL Normal 6.3-8.0 [facility] Comment on above: Order Comment: Speci men Type: BLOOD SPECIMENOrdering Facility: [facility] Address: [address] [place], [place] [address] Performed By: #### 2 4323-8, 01484-7, 3040-3 ####[facility] LABCLIA [id number] [place] [address] [place] Sodium [Moles/Vol] 141 mmol/L Normal 136-144 [facility] Comment on above: Order Comment: Speci men Type: BLOOD SPECIMENOrdering Facility: [facility] Address: [address] [place] [address] Performed By: #### 2 4323-8, 12182-9, 3040-3 ####[facility] LABCLIA [id number] [place] [address] [place] Urea nitrogen [Mass/Vol] 11 mg/dL Normal 7-21 [facility] Comment on above: Order Comment: Speci men Type: BLOOD SPECIMENOrdering Facility: [facility] Address: [address] [place] [address] Performed By: #### 2 4323-8, 85205-6, 3040-3 ####[facility] LABCLIA [id number] [place] [address] [place] ECG COMPLETEon 05-19-2024 ECG COMPLETE Ventricular Rate : 6 6 BPM Atrial Rate : 66 BPM P-R Interval : 172 ms QRS Duration : 82 ms Q-T Interval : 420 ms QTC Calculation(Bazett) : 440 ms Calculated P State Line : 60 degrees Calculated R State Line : 9 degrees Calculated T State Line : 27 degrees NORMAL SINUS RHYTHM CANNOT RULE OUT INFERIOR INFARCT , AGE UNDETERMINED ABNORMAL ECG NO PREVIOUS ECGS AVAILABLE Confirmed by MD FATIMA VINAYAK ([id number]) on 05/23/2024 1:30:13 PM NAME : CHRISTIAN SUGGS PID : [id number] : 1945 Gender : Female Race : ORD : [id number] Procedure Date : May 19 2024 03:16:23 Edit Date : May 23 2024 13:30:14 Diagnosis: NORMAL SINUS RHYTHM CANNOT RULE OUT INFERIOR INFARCT , AGE UNDETERMINED ABNORMAL ECG NO PREVIOUS ECGS AVAILABLE Confirmed by MD FATIMA VINAYAK ([id number]) on 05/23/2024 1:30:13 PM Test Reason : Chest Pain Location : 191 : [facility] ED Overread By : MD FATIMA VINAYAK Edited By : MD FATIMA VINAYAK Referred By : , Acquired by : MARCOS MELENDREZ [facility] ED NOTEon 05-19-2024 ED NOTE HNO ID: [id number] Author: TOR ABRAMS RN Service: Emergency Medicine Author Type: Registered Nurse Type: ED Notes Filed: 05/19/2024 07:18 Note Text: Patient is alert and oriented, denies any questions/concerns at this time. Patient verbalizes understanding of d/c instructions and follow up care. Patient ambulates from department at this time. [facility] ED NOTE HNO ID: [id number] Author: SONIA DIAZ RN Service: Emergency Medicine Author Type: Registered Nurse Type: ED Notes Filed: 05/19/2024 02:58 Note Text: Patient reports got up to use bathroom and when she got back into bed, experienced sharp pain left breast area. Denies dyspnea, denies diaphoresis, denies NV. Reports that pain resolved within 10 minutes. Denies pain or any symptoms on arrival to ER. [facility] ED PROV NOTEon 05-19-2024 ED PROV NOTE HNO ID: [id number] Author: REHAN MORALES MD Service: Emergency Medicine Author Type: Physician Type: ED Provider Notes Filed: 05/19/2024 07:36 Note Text: ED Provider Note Patient Name: Christian Suggs : 1945 SERVICE DATE: 05/19/24 History Patient presents with: Chest Pain Presents to the emergency department with concerns over an episode of chest pain that describes a stabbing sensation, middle of the chest, left-sided chest, lasted approximately 10 minutes, with patient got up to go to the restroom tonight. Patient took nothing for the pain, and seem to spontaneously resolve. Patient also notes she felt weak, and her legs were swollen with a red rash. Patient currently has no chest pain, no complaints of dyspnea. No fever. No nausea no vomiting. Patient has no abdominal pain, and no history of reflux. Chest Pain Pain location: L lateral chest, L chest and substernal area Pain quality: stabbing Pain radiates to: Does not radiate Pain severity: Mild Onset quality: Sudden Duration: 10 minutes Timing: Intermittent Progression: Resolved Chronicity: New Worsened by: Nothing Ineffective treatments: None tried Associated symptoms: lower extremity edema Associated symptoms: no abdominal pain, no anxiety, no back pain, no cough, no fever, no palpitations and no shortness of breath Risk factors: no prior DVT/PE and no smoking PAST MEDICAL HISTORY Diagnosis Date - Allergic rhinitis - Arthritis Back - C. difficile enteritis - History of back surgery 07/21/2011 - HLD (hyperlipidemia) - Lymphocytic colitis - Melanoma (HCC) right thigh - NPH (normal pressure hydrocephalus) (HCC) - [facility] (obstructive sleep apnea) - Rotator cuff tear arthropathy of right shoulder 07/21/2012 - Urinary retention PAST SURGICAL HISTORY Procedure Laterality Date - ARTHRP KNE CONDYLEANDPLATU MEDIALANDLAT COMPARTMENTS Right 10/2014 - CARPAL TUNNEL 2009 bilateral - CHOLECYSTECTOMY HX N/A - COLONOSCOPY FLX DX W/COLLJ SPEC WHEN PFRMD 02/02/2016 - JOINT REPLACEMENT HX - ORTHOPEDICS SURGERY HX - PAST SURGICAL HISTORY OF 1999 bladder repair - PAST SURGICAL HISTORY OF 2007 melanoma removal FAMILY HISTORY Problem Relation Age of Onset - Heart Father late in life - Breast Cancer Maternal Aunt - Diabetes Other none - Colon Cancer Other none - Coronary Artery Disease Other none Social History Tobacco Use - Smoking status: Never - Smokeless tobacco: Never Vaping Use - Vaping status: Never Used Substance and Sexual Activity - Alcohol use: No - Drug use: No - Sexual activity: Not Currently Partners: Male ALLERGIES Allergen Reactions - Hydrocodone Bitartr* GI Upset - Mesalamine Myalgia - Oxycodone GI Upset - Flagyl [Nitroimidaz* Other: See Comments metal mouth - Scopolamine Other: See Comments Review of Systems Constitutional: Negative for fever. Respiratory: Negative for cough and shortness of breath. Cardiovascular: Positive for chest pain. Negative for palpitations. Gastrointestinal: Negative for abdominal pain. Musculoskeletal: Negative for back pain. All other systems reviewed and are negative. Physical Exam Vitals [05/19/24 0253] BP Pulse Temp Temp src Resp SpO2 Weight Height 161/90 74 36.4 ?C (97.5 ?F) Temporal 16 96 % 77.2 kg (170 lb 3.2 oz) -- Physical Exam Vitals and nursing note reviewed. Constitutional: General: She is not in acute distress. Appearance: Normal appearance. She is not ill-appearing or toxic-appearing. HENT: Head: Normocephalic and atraumatic. Eyes: General: Right eye: No discharge. Left eye: No discharge. Cardiovascular: Rate and Rhythm: Normal rate and regular rhythm. Pulses: Radial pulses are 2+ on the right side and 2+ on the left side. Heart sounds: Normal heart sounds. Pulmonary: Effort: Pulmonary effort is normal. No tachypnea or respiratory distress. Breath sounds: No decreased breath sounds, wheezing or rhonchi. Abdominal: General: There is no abdominal bruit. Palpations: Abdomen is soft. There is no mass. Tenderness: There is no abdominal tenderness. There is no guarding. Musculoskeletal: Cervical back: Normal range of motion and neck supple. Right lower leg: Tenderness present. Edema present. Left lower leg: Tenderness present. Edema present. Comments: Is symmetric, 1+, lower extremity, pitting edema, without calf tenderness, she does have mild erythema, to the anterior aspect of both of her shins, it does progress mildly around towards the back and the skin is slightly warm, there is no proximal streaking however there is no open sores or lesions, however on the right paul, there is a couple of small ecchymotic/areas, which patient states are from rubbing and hitting up against the car door, with drainage, no blisters Skin: General: Skin is warm and dry. Neurological: General: No focal deficit present. Ment (more content not included)... Normal [facility] HIGH SENSITIVITY TROPONIN T (INITIAL)on 05-19-2024 Troponin T.cardiac High sensitivity method [Mass/Vol] 20 ng/L High <12 [facility] Comment on above: Order Comment: Speci men Type: BLOOD SPECIMENOrdering Facility: [facility] Address: [address] [place] [address] Performed By: #### L [id number] ####[facility] LABCLIA [id number] [place] [address] [facility] HIGH SENSITIVITY TROPONIN T (SECOND)on 05-19-2024 Troponin T.cardiac High sensitivity method [Mass/Vol] 20 ng/L High <12 [facility] Comment on above: Order Comment: Speci men Type: BLOOD SPECIMENOrdering Facility: [facility] Address: [address] [place] [address] Performed By: #### L [id number] ####[facility] LABCLIA [id number] [place] [address] [facility] HIGH SENSITIVITY TROPONIN T (THIRD) 3 HRS AFTER INITIALon 05-19-2024 Troponin T.cardiac High sensitivity method [Mass/Vol] 19 ng/L High <12 [facility] Comment on above: Order Comment: Speci men Type: BLOOD SPECIMENOrdering Facility: [facility] Address: [address] [place] [address] Performed By: #### L [id number] ####[facility] LABCLIA [id number] [place] [address] [place] Lipase SerPl-cCncon 05-19-20 24 Lipase [Catalytic activity/Vol] 62 U/L High 16-61 [facility] Comment on above: Order Comment: Speci men Type: BLOOD SPECIMENOrdering Facility: [facility] Address: [address] [place] [address] Performed By: #### 2 4323-8, 68729-5, 3040-3 ####[facility] LABCLIA [id number] [place] [address] [facility] NT-proBNP SerPl-mCncon 05-19 Natriuretic peptide.B prohormone N-Terminal [Mass/Vol] 77 pg/mL Normal <450 [facility] Comment on above: Order Comment: Speci men Type: BLOOD SPECIMENOrdering Facility: [facility] Address: [place] [address] Performed By: #### 2 4323-8, 35170-8, 3040-3 ####[facility] LABCLIA [id number] [place] [address] [facility] XR CHEST 1V FRONTALon 2023 XR CHEST 1V FRONTAL * * *Final Report* * * DATE OF EXAM: May 19 2024 3:43AM LDX 5290 - XR CHEST 1V FRONTAL / PROCEDURE REASON: Chest pain * * * * Physician Interpretation * * * * EXAMINATION: CHEST RADIOGRAPH (SINGLE VIEW AP OR PA) CLINICAL HISTORY: Chest pain MQ: XC1_5 Comparison: 06/22/2022. RESULT: Lines, tubes, and devices: Right jugular approach central venous catheter with tip projecting over the lower SVC. Lungs and pleura: Lungs are hypoinflated. Basilar atelectasis. No consolidation. No pleural effusion or pneumothorax. Cardiomediastinal silhouette: Normal cardiomediastinal silhouette. Other: No acute osseous abnormality. Suture anchor within the right humeral head. IMPRESSION: Hypoinflated lungs with basilar atelectasis. Irrigation District Manager: TERESA Transcribe Date/Time: May 19 2024 4:13A Dictated by : JAY FLYNN MD This examination was interpreted and the report reviewed and electronically signed by: JAY FLYNN MD on May 19 2024 4:14AM EST [id number] Normal [facility] ED NOTEon 03-12-2024 ED NOTE HNO ID: [id number] Author: TOR ABRAMS, RN Service: Emergency Medicine Author Type: Registered Nurse Type: ED Notes Filed: 03/12/2024 17:47 Note Text: Pt came to nurses state and states she wants to leave, Pt advised she is not up for discharge yet. Pt states the doctor said 30 mins and that is 15 more mins. Advised patient if she doesn't want to wait the 15mins I can advised the physician. Pt states I want to leave how do I get out of here. Patient eloped at this time. Normal [facility] ED NOTE HNO ID: [id number] Author: JACOB MIRELES, GAURAV Service: Nursing Author Type: Registered Nurse Type: ED Notes Filed: 03/12/2024 16:33 Note Text: Pt was stung 7 times by fat, furry bees in the face. Pt's vss, AANDOx4, airway patent, no hx of allergy. Normal [facility] ED PROV NOTEon 03-12-2024 ED PROV NOTE HNO ID: [id number] Author: MATEO HUMMEL MD Service: Emergency Medicine Author Type: Physician Type: ED Provider Notes Filed: 03/19/2024 07:59 Note Text: ED Provider Note Patient Name: Christian Suggs : 1945 SERVICE DATE: 03/12/24 History Patient presents with: Insect Bite The patient is an 78-year-old female presenting today after multiple bee stings. Patient states she was out in the bushes doing yard work. She noticed bees on the mace. She then noticed there was a nest somewhere within the mace. She sprayed the nest but upon spraying it she was stung 7 times. She states it was about 4 times on her face and a few times on her arms. She has no allergies to bee stings. Her daughter is a nurse. She discussed the stings with her because she had so many encounters with the vitamins and sac she felt that she should be evaluated in the emergency department. Patient denies any itching swelling hoarse voice or trouble breathing. She states she just has pain where all of the stings occurred. This happened about 1/2-hour prior to arrival. PAST MEDICAL HISTORY No date: Allergic rhinitis No date: Arthritis Comment: Back No date: C. difficile enteritis 07/21/2011: History of back surgery No date: HLD (hyperlipidemia) No date: Lymphocytic colitis No date: Melanoma (HCC) Comment: right thigh No date: NPH (normal pressure hydrocephalus) ([facility]) No date: [facility] (obstructive sleep apnea) 07/21/2012: Rotator cuff tear arthropathy of right shoulder No date: Urinary retention PAST SURGICAL HISTORY 10/2014: ARTHRP KNE CONDYLEANDPLATU MEDIALANDLAT COMPARTMENTS; Right 2009: CARPAL TUNNEL Comment: bilateral No date: CHOLECYSTECTOMY HX; N/A 02/02/2016: COLONOSCOPY FLX DX W/COLLJ SPEC WHEN PFRMD No date: JOINT REPLACEMENT HX No date: ORTHOPEDICS SURGERY HX 2000: PAST SURGICAL HISTORY OF Comment: bladder repair 2008: PAST SURGICAL HISTORY OF Comment: melanoma removal FAMILY HISTORY Problem Relation Age of Onset - Heart Father late in life - Breast Cancer Maternal Aunt - Diabetes Other none - Colon Cancer Other none - Coronary Artery Disease Other none Social History Tobacco Use - Smoking status: Never - Smokeless tobacco: Never Vaping Use - Vaping status: Never Used Substance and Sexual Activity - Alcohol use: No - Drug use: No - Sexual activity: Not Currently Partners: Male ALLERGIES Allergen Reactions - Hydrocodone Bitartr* GI Upset - Mesalamine Myalgia - Oxycodone GI Upset - Flagyl [Nitroimidaz* Other: See Comments metal mouth - Scopolamine Other: See Comments Review of Systems Constitutional: Negative for activity change, appetite change, chills, fatigue and fever. HENT: Negative for congestion, ear pain, rhinorrhea and sore throat. Respiratory: Negative for cough and shortness of breath. Cardiovascular: Negative for chest pain and palpitations. Gastrointestinal: Negative for abdominal pain, diarrhea, nausea and vomiting.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 pathologistOrdered By: Dr. Ruggiero on 09-10-2022 Pathologist review Amos (Unsp spec) [Interp] Reviewed [facility] Comment on above: Previous reported re sult: May follow Edited by: RGOOD on 09/11/22:1320Negative for malignant cells.Rare RBCs are noted.Duane Lara M.D. 09/11/22 AMENDED REPORT 09/11/22 1320 PATH REV previously reported as: May follow ANES POSTPROC EVALon 023 ANES POSTPROC EVAL HNO ID: [id number] Author: Anup Zeng MD Service: ? Author Type: Anesthesiologist Type: Anesthesia Postprocedure Evaluation Filed: 09/05/2022 10:21 AM Note Text: POST ANESTHESIA EVALUATION NOTE : 1945 Procedure Summary Date: 09/05/22 Room / Location: [facility] OR / [facility] OR Anesthesia Start: 844 Anesthesia Stop: 955 Procedure: HYSTEROSCOPY W/ POLYPECTOMY W/ DANDC (Uterus) Diagnosis: Endometrial polyp (Endometrial polyp [N84.0]) Surgeons: Faby Santana MD Responsible Provider: Anup Zeng MD Anesthesia Type: MAC ASA Status: 2 Anesthesia Type: MAC Last Vitals Vitals Value Taken Time BP 173/92 09/05/22 1015 Temp 36.2 ?C (97.2 ?F) 09/05/22 0953 Pulse 70 09/05/22 1019 Resp 17 09/05/22 1015 SpO2 98 % 09/05/22 1015 Post Anesthesia Patient Status Patient Evaluation: bedside. Anticipated Disposition: phase 2 then home. Neurological Status: aware and responsive. Pulmonary Status: breathing comfortably on room air Airway Control: returned to baseline unsupported. Cardiovascular Status: stable. Pain Management: clinically adequate Postoperative Hydration: acceptable. Intraoperative Events: no significant anesthesia events Post Operative Nausea/Vomiting Status: no significant post operative nausea or vomiting Recommendation: continue current plan of care. Anesthesia Observations No Documentation SIGNATURE: Anup Zeng MD PATIENT NAME: Christian Suggs DATE: September 05, 2022 TIME: 10:19 AM CSN: [id number] [facility] ANES PRE-OPon 09-05-2022 ANES PRE-OP HNO ID: [id number] Author: Anup Zeng MD Service: ? Author Type: Anesthesiologist Type: Anesthesia Preprocedure Evaluation Filed: 09/05/2022 8:44 AM Note Text: ANESTHESIOLOGY DAY OF SURGERY NOTE : 1945 Procedure Information Date/Time: 09/05/22829 Procedure: HYSTEROSCOPY W/ POLYPECTOMY W/ DANDC (Uterus) Location: [facility] OR05 / [facility] OR Surgeons: Faby Santana MD Estimated body mass index is 29.12 kg/m? as calculated from the following: Height as of 08/28/22: 165.1 cm (5' 5). Weight as of 08/28/22: 79.4 kg (175 lb). Most recent hematocrit and potassium results: Hematocrit 40.9 07/04/2022 Potassium 4.4 07/04/2022 Relevant Problems ANESTHESIA (+) [facility]ER (obstructive sleep apnea) CARDIO (-) Angina at rest (HCC) (-) Angina of effort (HCC) GI (+) GERD (gastroesophageal reflux disease) NEURO-PSYCH (+) History of pulmonary embolism PULMONARY (+) [facility] (obstructive sleep apnea) I - PHYSICAL EVALUATION AIRWAY Patient intubated: No. Tracheostomy tube not present Mallampati: II. TM distance: >3 FB. Neck ROM: full ROM without neurological symptoms. Mouth opening: adequate. Short neck: no. Thick neck: no Lynne present: no DENTAL Dental findings: teeth intact. II - ANESTHESIA PLAN ASA Score: 2 Anesthetic Plan: MAC The patient is a current smoker. NPO Status: adequate Beta Clarke Monitoring Plan Monitoring plan: standard ASA. Post Procedure Analgesic Plan Postoperative analgesic plan: multimodal analgesia. Informed Consent Anesthetic risks, benefits, alternatives, personnel and consent discussed: yes. Patient / Responsible Green Party agrees to proceed: yes Patient / Surrogate agrees to blood products: Yes DNR status not reviewed with patient and/or family prior to surgery. Significant changes in the patient condition since the History and Physical, not otherwise documented in primary service progress note: no. Potential Anesthesia issues that may suggest increased risk of complications or contraindication to planned procedure: none. Vitals Value Taken Time BP 175/90 09/05/22820 Pulse 69 09/05/22820 Resp 18 09/05/22820 Temp 36.1 ?C (97 ?F) 09/05/22820 SpO2 100 % 09/05/22820 Facility-Administered Medications as of 09/05/2022 Medication Dose Route Frequency - lidocaine (PF) 10 mg/mL (1 %) 1-2 mg injection (XYLOCAINE) 0.1-0.2 mL INTRADERMAL PRN - lactated ringers iv infusion 5-30 mL/hr INTRAVENOUS CONTINUOUS - NaCl 0.9% iv flush bag 20 mL INTRAVENOUS PRN - [COMPLETED] acetaminophen 1,000 mg tab(s) (TYLENOL) 1,000 mg ORAL Pre-Op Once Outpatient Medications as of 09/05/2022 Medication Sig - rosuvastatin (CRESTOR) 5 mg tablet Take 1 tablet by mouth once daily. - budesonide, enteric coated (ENTOCORT EC) 3 mg 24 hr capsule Take 2 capsules by mouth daily before breakfast. Resume after Dexamethasone completed - omeprazole (PRILOSEC) 40 mg capsule Take 40 mg by mouth once daily. - DULoxetine (CYMBALTA) 30 mg capsule Take 1 capsule by mouth daily at bedtime. - multivitamin ORAL tablet Take 1 tablet by mouth once daily. - Calcium-Vitamin D3-Vitamin K 500-100-40 mg-unit-mcg chew Take 1 tablet by mouth. CHEW TAB BEFORE SWALLOWING twice daily. - tamsulosin (FLOMAX) 0.4 mg Take 1 capsule by mouth daily at bedtime. - meloxicam (MOBIC) 7.5 mg tablet Take 1 tablet by mouth once daily. Take this directly following a meal I have interviewed and examined the patient. I have reviewed the medical record and/or the pre-anesthesia evaluation, pertinent labs, and test results. This contains updated information obtained within 48 hours of Surgery/Procedure. SIGNATURE: Anup Zeng MD PATIENT NAME: Christian Suggs DATE: September 05, 2022 TIME: 8:43 AM CSN: [id number] [facility] OPERATIVE NOon 09-05-2022 OPERATIVE NO HNO ID: [id number] Author: Faby Santana MD Service: Gynecology Author Type: Physician Type: Operative Report Filed: 09/05/2022 10:14 AM Note Text: INFORMATION SYSTEMS SECURITY SPECIALIST OPERATIVE/PROCEDURE REPORT LOG ID: [id number] Surgery/Procedure Date: 09/05/2022 Incision/Procedure Start Time: 8:57 AM Incision Close/Procedure End Time: 9:49 AM Surgeon(s)/Proceduralis t(s) and Roofing Machine Tender(s): Surgeon(s) and Role: * Faby Santana MD - Primary * Vivien Saleh MD - Resident - Assisting Informed Consent: Informed Consent obtained and on the chart Procedure: Hysteroscopy with resection of intrauterine mass- suspect fibroid Pre-Op/Pre-Procedure Diagnosis: Postmenopausal bleeding Post-Op/Post-Procedure Diagnosis: Same as pre-op diagnosis Antibiotic: None Procedure Details: Patient was taken to the operating room where the sign-in and time out were completed. IV sedation was administered and found to be adequate. She was placed in dorsal lithotomy position with her feet in Jonny stirrups with careful attention not to hyperflex or hyperextend the knees or hips. SCDs were placed and turned on for DVT prophylaxis. Examination under anesthesia was performed to ascertain the position of the uterus which noted to be anteverted. Patient was prepped and draped in the usual fashion. A weighted speculum was placed in the patient's vagina with clear visualization of the cervix. The anterior lip of the cervix was grasped with a single tooth tenaculum. Cervix was injected circumferentially with a dilute solution of vasopressin, 20 units of vasopressin mixed in 100 mL and 5mL aliquots; 4cc in total. Cervix was dilated to 8 mm with Mixon dilator. A 8 mm 30-degree hysteroscope was introduced under direct visualization, and the uterus was distended with normal saline. Fluid deficit was 430 cc. The hysteroscope was then used for initial survey revealing below findings. The uterine cavity was well visualized. The fallopian tube ostia were visualized bilaterally. Findings: Endometrium: Normal endometrium Endometrial cavity: Normal Polyps: No polyps Fibroids: One fibroid visualized - suspected type 0 fibroid Other: None Additional techniques Include: TRUCLEAR MORCELLATOR: The Truclear morcellator was then placed into the uterine cavity and under direct visualization, the Fibroid was morcellated and sent to Pathology. The cavity was noted to be empty and good hemostasis was noted. All instruments were removed from vagina and uterine cavity. Sign-out was completed. Distention Media: Normal Saline IV Fluids: 800cc Urine Output: 20 mL Estimated Blood Loss: 10 mL Specimens: Myoma/Fibroid Implantable Devices: NONE Drains: None Complications: None A digital sweep of the vaginal canal was performed by Vivien Saleh MD and it was ascertained that no instruments or other foreign bodies are retained within the cavity. Sponge, lap, and needle counts were correct times two and the patient was taken to the recovery room with stable vital signs after tolerating the procedure well. SIGNATURE: Vivien Saleh MD PATIENT NAME: Christian Suggs DATE: September 05, 2022 TIME: 9:59 AM PAGER/CONTACT #: I reviewed the note above and performed the procedure with assistance. Jarret Saleh performed dilation of the cervix and palcement of the hysterosope and part of the resection. I performed the majority of the resection. Faby Santana MD [facility] SURGICAL PATHOLOGYon 023 CASE REPORT [facility] Comment on above: Order Comment: Speci men Type: TISSUE SPECIMEN Ordering Facility: [facility] Address: [address] [place] [id number] Result Comment: Surg [facility] Pathology Report Case: [id number] Authorizing Provider: Faby Santana MD Collected: 09/05/2022 10:13 AM Ordering Location: [facility] Surgery Received: 09/05/2022 10:51 AM Pathologist: Camilla Pollack MD Specimen: ENDOMETRIUM POLYP, endometrium polyp or fibroid and endometrium curettings Performed By: #### S #### [facility] CLIA [id number] CLINICAL HISTORY Normal [facility] Comment on above: Order Comment: Speci men Type: TISSUE SPECIMEN Ordering Facility: [facility] Address: [address] [place] [address] Result Comment: Pre- op diagnosis: Endometrial polyp [N84.0] Performed By: #### S #### [facility] CLIA [id number] [facility] [address] FINAL DIAGNOSIS [facility] Comment on above: Order Comment: Speci men Type: TISSUE SPECIMEN Ordering Facility: [facility] Address: [address] [place] [address] Result Comment: Endo metrium, polypectomy: Fragments of leiomyomas. Scant fragments of endometrial polyp. Performed By: #### S #### [facility] CLIA [id number] [address] [place] [address] FINAL PERFORMING LAB [facility] Comment on above: Order Comment: Speci men Type: TISSUE SPECIMEN Ordering Facility: [facility] Address: [address] [place] [address] Result Comment: Diag nostic interpretation performed at [facility], [address] [place] [address] CLIA# [id number] [employer] Technician: Fernando Briones M.D. Performed By: #### S #### [facility] CLIA [id number] [address] [place] [address] GROSS DESCRIPTION [facility] Comment on above: Order Comment: Speci men Type: TISSUE SPECIMEN Ordering Facility: [facility] Address: [address] [place] [address] Result Comment: A. E NDOMETRIUM POLYP Received in formalin in a suction apparatus are multiple garza-pink, soft feathery segments of tissue aggregating to 12.5 x 2.3 x 0.5 cm. Totally submitted in five cassettes. LLL September 05, 2022 2:16 PM Gross examination preformed at [facility], [address] [place] [address] Performed By: #### S #### [facility] CLIA [id number] [address] [place] [address] [id number] [address] [place] HISTORY PHYSICALon 3 HISTORY PHYSICAL HNO ID: [id number] Author: Shawnee Santillan PA-C Service: ? Author Type: Physician Roofing Machine Tender Type: HANDP Filed: 08/28/2022 4:06 PM Note Text: HISTORY AND PHYSICAL EXAMINATION SERVICE DATE: 08/28/2022 SERVICE TIME: 3:35 PM PRIMARY CARE PHYSICIAN: Lilo Grullon MD REASON FOR VISIT: Christian Suggs is a 76 year old female who is scheduled for Procedure(s): HYSTEROSCOPY W/ POLYPECTOMY W/ DANDC (N/A) at the request of Dr. Faby Santana MD for consultation. My final recommendation will be communicated back to the requesting physician by way of shared medical record or letter. 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) Balance Problems Thyroid Nodule Family History of Ischemic Heart Disease and Other Diseases of The Circulatory System Urinary Retention Fall At Home, Initial Encounter Uti (Urinary Tract Infection) Endometrial Mass Obesity, Class I, Bmi 30-34.9 Aftercare Nph (Normal Pressure Hydrocephalus) (Hcc) [facility] (Obstructive Sleep Apnea) History of Pulmonary Embolism Hld (Hyperlipidemia) COVID-19 Immunization Status Overdue - COVID-19 VACCINE (4 - Booster) Overdue since 12/14/2020 10/19/2020 Imm Admin: COVID-19 vaccine, full dose (MODERNA) 10/04/2020 Outside Immunization: Covid (Moderna) 09/22/2020 Imm Admin: COVID-19 vaccine, full dose (MODERNA) CHIEF COMPLAINT: endometrial polyp HPI: Christian Suggs is a 76 year old female presenting for pre-anesthesia consultation with her . Pt has history of endometrial mass found on CT A/P in 06/2022. Endometrial bx was benign but revealed endometrial polyp. Denies vaginal bleeding. Above procedure recommended to manage findings. Procedure scheduled on 09/05/2022 at [place]. REVIEW OF SYSTEMS: General: No weight loss, malaise or fevers. Neurological: +NPH - tentative dx per , had stable ventriculomegaly on CT 06/2022, follows with outside neuro, Dr. Ruggiero, planning to do spinal tap after hysteroscopy. Positive for: dementia (mild cognitive impairment). Negative for: seizures, TIA and strokes. Respiratory: Positive for: obstructive sleep apnea and CPAP/BiPAP noncompliant. Negative for: asthma, bronchitis, COPD, current cough, tobacco use and URI < 2 weeks. Cardiovascular: Positive for: DVT/PE (h/o PE ~5 years ago, was treated with AC, only on ASA 81 mg) and hyperlipidemia Negative for: arrhythmia, atrial fibrillation, CAD, CHF, hypertension, recent TX and murmur/valvular heart disease. GI: +Lymphocytic colitis - on budesonide, follows with GI, Dr. Alvarez. Positive for: GERD Negative for: hepatitis, liver disease and ETOH >2 drinks/day. : +Urinary retention - on Flomax, has indwelling catheter, has appt with urology on 09/03/22. Positive for: indwelling catheter. Negative for: hematuria and renal failure. INFORMATION SYSTEMS SECURITY SPECIALIST: See HPI. Endocrine: No history of diabetes. Has not taken steroids within the past 30 days. No history of endocrinological symptoms or problems. Hematology: Positive for: chronic anti-coagulation/platel et meds (ASA 81 mg). Patient is on anti-coagulation/platel et medication(s): Aspirin. Negative for: anemia and factor V Leiden. Oncology: +H/o melanoma Psych: Positive for: anxiety. Musculoskeletal: Positive for: back pain. Skin: Negative for lesions, rash and itching. PAST MEDICAL HISTORY Diagnosis Date Allergic rhinitis Arthritis Back C. difficile enteritis History of back surgery 07/21/2011 Lymphocytic colitis Melanoma (HCC) right thigh Rotator cuff tear arthropathy of right shoulder 07/21/2012 Urinary retention PAST SURGICAL HISTORY Procedure Laterality Date ARTHRP KNE CONDYLEANDPLATU MEDIALANDLAT COMPARTMENTS Right 10/2014 CARPAL TUNNEL 2009 bilateral COLONOSCOPY FLX DX W/COLLJ SPEC WHEN PFRMD 02-02-16 JOINT REPLACEMENT HX ORTHOPEDICS SURGERY HX PAST SURGICAL HISTORY OF 1999 bladder repair PAST SURGICAL HISTORY OF 2007 melanoma removal FAMILY HISTORY Problem Relation Age of Onset Heart Father late in life Breast Cancer Maternal Aunt Diabetes Other none Colon Cancer Other none Coronary Artery Disease Other none Social History Tobacco Use Smoking status: Never Smokeless tobacco: Never Vaping Use Vaping Use: Never used Substance Use Topics Alcohol use: No Drug use: No Prior to Admission medications as of 08/28/22 1547 Medication Sig Last Dose Taking aspirin 81 mg cap Take by mouth. Taking Yes tamsulosin (FLOMAX) 0.4 mg Take 1 capsule by mouth daily at bedtime. Taking Yes rosuvastatin (CRESTOR) 5 mg tablet Take 1 tablet by mouth once daily. Aleksandr (more content not included)... Normal [facility] CNOVon 08-21-2022 CNOV Office Visit (OBGYWM ) CHRISTIAN SUGGS ([id number]) 1945 F Date Time Provider Department 08/21/22 9:20 AM FABY SANTANA During your visit today, we recorded the following information about you: Pulse Blood pressure Weight Height 86/minute 122/68 78 kg 1.657 m Faby Santana MD 08/22/2022 1:09 PM Signed Pre-Op History and Physical HPI: The patient is a 76 year old female presenting for pre-operative visit. She is scheduled for Hysteroscopy [facility] with polyp resection, for endometrial polyp on 09/05/22. Procedure discussed along with risks, benefits and complications. Other alternatives discussed for management. Consent form signed? Yes. PAST MEDICAL HISTORY Diagnosis Date Allergic rhinitis Arthritis Back C. difficile enteritis History of back surgery 07/21/2011 Lymphocytic colitis Melanoma (HCC) right thigh Rotator cuff tear arthropathy of right shoulder 07/21/2012 Urinary retention PAST SURGICAL HISTORY Procedure Laterality Date ARTHRP KNE CONDYLEANDPLATU MEDIALANDLAT COMPARTMENTS Right 10/2014 CARPAL TUNNEL 2009 bilateral COLONOSCOPY FLX DX W/COLLJ SPEC WHEN PFRMD 02-02-16 JOINT REPLACEMENT HX ORTHOPEDICS SURGERY HX PAST SURGICAL HISTORY OF 1999 bladder repair PAST SURGICAL HISTORY OF 2007 melanoma removal Current Outpatient Medications Medication Sig Dispense Refill tamsulosin (FLOMAX) 0.4 mg Take 1 capsule by mouth daily at bedtime. 90 capsule 3 rosuvastatin (CRESTOR) 5 mg tablet Take 1 tablet by mouth once daily. budesonide, enteric coated (ENTOCORT EC) 3 mg 24 hr capsule Take 2 capsules by mouth daily before breakfast. Resume after Dexamethasone completed omeprazole (PRILOSEC) 40 mg capsule Take 40 mg by mouth once daily. meloxicam (MOBIC) 7.5 mg tablet Take 1 tablet by mouth once daily. Take this directly following a meal 60 tablet 0 DULoxetine (CYMBALTA) 30 mg capsule Take 1 capsule by mouth daily at bedtime. aspirin, enteric coated (ASPIRIN, ENTERIC COATED) 81 mg EC tablet Take 81 mg by mouth once daily. multivitamin ORAL tablet Take 1 tablet by mouth once daily. 0 Calcium-Vitamin D3-Vitamin K 500-100-40 mg-unit-mcg chew Take 1 tablet by mouth. CHEW TAB BEFORE SWALLOWING twice daily. 0 No current facility-administered medications for this visit. ALLERGIES: Mesalamine, Flagyl [Nitroimidazoles], Hydrocodone Bitartrate, Oxycodone, and Scopolamine PERSONAL HISTORY: Social History Tobacco Use Smoking status: Never Smokeless tobacco: Never Vaping Use Vaping Use: Never used Substance Use Topics Alcohol use: No Drug use: No FAMILY HISTORY: FAMILY HISTORY Problem Relation Age of Onset Heart Father late in life Breast Cancer Maternal Aunt Diabetes Other none Colon Cancer Other none Coronary Artery Disease Other none REVIEW OF SYMPTOMS: GENERAL: denies fevers or chills ENDOCRINOLOGY: has not been on steroids Cardiology : denies new palpitations or chest pain Respiratory: denies SOB or cough Hematology: denies history of prolonged bleeding or easy bruising or VTE Allergy: Denies history of personal or family history of allergy to anesthesia PHYSICAL EXAMINATION: VITALS: Blood pressure 122/68, pulse 86, height 5' 5.25 (1.657 m), weight 172 lb (78 kg), SpO2 99 %. GENERAL: The patient is well nourished, well hydrated in no acute distress. , NECK: Supple. No lynphadenopathy, normal thyroid, no thyromegaly. LUNGS: Clear to auscultation bilaterally. no wheezes, rhonchi or rales HEART: Regular rate and rhythm, Normal heart sounds, and No murmurs or gallops IMPRESSION: Endometrial polyp PLAN: The risks/benefits/alternat luis and personal involved for the planned hysteroscopy DANDC with polyp resection were reviewed with the patient. Her questions were answered to her satisfaction and she desires to proceed. Consent was signed. I reviewed with her postop instructions and expectations. I have reviewed and updated past medical and surgical history, medications and allergies Faby Santana M.D. Faby Santana MD 08/22/2022 1:09 PM Signed macie Suggs is a 76 year old female who presents for problem visit for urinary retention. HPI: Patient presents today with her and her daughter who is a nurse for follow-up of her endometrial biopsy and urinary retention. Patient's endometrial biopsy was benign. However she had a significant polyp noted on an office hysteroscopy. She is here today for her preop and her family was asking me about the plan for urinary retention. She has been seen by urology here in this office who diagnosed her with urinary retention and placed an indwelling Damon catheter. It was changed out by the nursing staff in that office. However there is no significant plan for follow-up. Patient and her family are under the understanding that her uterus is kinking off her bladder (more content not included)... Normal [facility] HISTORY PHYSICALon 3 HISTORY PHYSICAL HNO ID: [id number] Author: Faby Santana MD Service: ? Author Type: Physician Type: HANDP Filed: 08/22/2022 1:09 PM Note Text: Pre-Op History and Physical HPI: The patient is a 76 year old female presenting for pre-operative visit. She is scheduled for Hysteroscopy DANDC with polyp resection, for endometrial polyp on 09/05/22. Procedure discussed along with risks, benefits and complications. Other alternatives discussed for management. Consent form signed? Yes. PAST MEDICAL HISTORY Diagnosis Date Allergic rhinitis Arthritis Back C. difficile enteritis History of back surgery 07/21/2011 Lymphocytic colitis Melanoma (HCC) right thigh Rotator cuff tear arthropathy of right shoulder 07/21/2012 Urinary retention PAST SURGICAL HISTORY Procedure Laterality Date ARTHRP KNE CONDYLEANDPLATU MEDIALANDLAT COMPARTMENTS Right 10/2014 CARPAL TUNNEL 2009 bilateral COLONOSCOPY FLX DX W/COLLJ SPEC WHEN PFRMD 02-02-16 JOINT REPLACEMENT HX ORTHOPEDICS SURGERY HX PAST SURGICAL HISTORY OF 1999 bladder repair PAST SURGICAL HISTORY OF 2007 melanoma removal Current Outpatient Medications Medication Sig Dispense Refill tamsulosin (FLOMAX) 0.4 mg Take 1 capsule by mouth daily at bedtime. 90 capsule 3 rosuvastatin (CRESTOR) 5 mg tablet Take 1 tablet by mouth once daily. budesonide, enteric coated (ENTOCORT EC) 3 mg 24 hr capsule Take 2 capsules by mouth daily before breakfast. Resume after Dexamethasone completed omeprazole (PRILOSEC) 40 mg capsule Take 40 mg by mouth once daily. meloxicam (MOBIC) 7.5 mg tablet Take 1 tablet by mouth once daily. Take this directly following a meal 60 tablet 0 DULoxetine (CYMBALTA) 30 mg capsule Take 1 capsule by mouth daily at bedtime. aspirin, enteric coated (ASPIRIN, ENTERIC COATED) 81 mg EC tablet Take 81 mg by mouth once daily. multivitamin ORAL tablet Take 1 tablet by mouth once daily. 0 Calcium-Vitamin D3-Vitamin K 500-100-40 mg-unit-mcg chew Take 1 tablet by mouth. CHEW TAB BEFORE SWALLOWING twice daily. 0 No current facility-administered medications for this visit. ALLERGIES: Mesalamine, Flagyl [Nitroimidazoles], Hydrocodone Bitartrate, Oxycodone, and Scopolamine PERSONAL HISTORY: Social History Tobacco Use Smoking status: Never Smokeless tobacco: Never Vaping Use Vaping Use: Never used Substance Use Topics Alcohol use: No Drug use: No FAMILY HISTORY: FAMILY HISTORY Problem Relation Age of Onset Heart Father late in life Breast Cancer Maternal Aunt Diabetes Other none Colon Cancer Other none Coronary Artery Disease Other none REVIEW OF SYMPTOMS: GENERAL: denies fevers or chills ENDOCRINOLOGY: has not been on steroids Cardiology : denies new palpitations or chest pain Respiratory: denies SOB or cough Hematology: denies history of prolonged bleeding or easy bruising or VTE Allergy: Denies history of personal or family history of allergy to anesthesia PHYSICAL EXAMINATION: VITALS: Blood pressure 122/68, pulse 86, height 5' 5.25 (1.657 m), weight 172 lb (78 kg), SpO2 99 %. GENERAL: The patient is well nourished, well hydrated in no acute distress. , NECK: Supple. No lynphadenopathy, normal thyroid, no thyromegaly. LUNGS: Clear to auscultation bilaterally. no wheezes, rhonchi or rales HEART: Regular rate and rhythm, Normal heart sounds, and No murmurs or gallops IMPRESSION: Endometrial polyp PLAN: The risks/benefits/alternat luis and personal involved for the planned hysteroscopy DANDC with polyp resection were reviewed with the patient. Her questions were answered to her satisfaction and she desires to proceed. Consent was signed. I reviewed with her postop instructions and expectations. I have reviewed and updated past medical and surgical history, medications and allergies Faby Santana M.D. [facility] 08-09-2022 SONAM Telephone (OBGYWM) CHRISTIAN SUGGS ([id number]) 1945 F Date Time Provider Department 08/09/22 FABY SANTANA OBGY During your visit today, we recorded the following information about you: Sara Roberts LPN 08/09/2022 1:17 PM Signed Patient is scheduled for surgery at [facility] on 09/05/2022. Please approve surgical order Allergies As of Date: 08/09/2022 Noted Allergy Reaction MESALAMINE 09/24/2021 17 - Myalgia FLAGYL (NITROIMIDAZOLES) 01/15/2016 14 - Other: See Comments Comments: metal mouth HYDROCODONE BITARTRATE 09/17/2018 8 - GI Upset OXYCODONE 09/17/2018 8 - GI Upset SCOPOLAMINE 09/17/2018 14 - Other: See Comments Date Reviewed: 08/05/2022 Reviewed by: Lelo Acosta LPN - Fully Assessed Reason for Visit: Schedule Surgery [1330] Primary Visit Diagnosis:Endometrial polyp [N84.0] Order(s):SURGICAL REQUEST - ELECTIVE (02/2020) [[id number]] Order #: [id number]: 1 Prescriptions as of 08/12/2022 - tamsulosin (FLOMAX) 0.4 mg Take 1 capsule by mouth daily at bedtime. - rosuvastatin (CRESTOR) 5 mg tablet Take 1 tablet by mouth once daily. - budesonide, enteric coated (ENTOCORT EC) 3 mg 24 hr capsule Take 2 capsules by mouth daily before breakfast. Resume after Dexamethasone completed - omeprazole (PRILOSEC) 40 mg capsule Take 40 mg by mouth once daily. - meloxicam (MOBIC) 7.5 mg tablet Take 1 tablet by mouth once daily. Take this directly following a meal - DULoxetine (CYMBALTA) 30 mg capsule Take 1 capsule by mouth daily at bedtime. - aspirin, enteric coated (ASPIRIN, ENTERIC COATED) 81 mg EC tablet Take 81 mg by mouth once daily. - multivitamin ORAL tablet Take 1 tablet by mouth once daily. - Calcium-Vitamin D3-Vitamin K 500-100-40 mg-unit-mcg chew Take 1 tablet by mouth. CHEW TAB BEFORE SWALLOWING twice daily. 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] 06/06/2011 Myringitis [H73.20] 06/06/2011 Osteoporosis [M81.0] 06/06/2011 Lymphocytic colitis [K52.832] 02/07/2016 Neck pain [M54.2] 06/08/2021 08/17/2021 Frequent falls [R29.6] 06/08/2021 08/17/2021 Weakness of back [R29.898] 06/08/2021 08/17/2021 Cerebral ventriculomegaly [G93.89] 02/19/2022 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] 02/19/2022 Balance problems [R26.89] 02/19/2022 Thyroid nodule [E04.1] 02/19/2022 Family history of ischemic heart disease and ot*03/05/2022 COVID-19 [U07.1] 06/20/2022 07/05/2022 Urinary retention [R33.9] 06/21/2022 Fall at home, initial encounter [W19.XXXA, Y92.*06/23/2022 Acute respiratory failure with hypoxemia (HCC) *06/24/2022 06/27/2022 UTI (urinary tract infection) [N39.0] 06/24/2022 Endometrial mass [N94.89] 06/24/2022 Elevated troponin [R77.8] 06/24/2022 07/05/2022 Obesity, Class I, BMI 30-34.9 [E66.9] 06/24/2022 Acute respiratory failure with hypoxia (HCC) [J*06/24/2022 07/05/2022 Aftercare [Z51.89] 06/27/2022 Encounter Status:Closed by FABY SANTANA on 08/12/22 [facility] CNOVon 08-05-2022 CNOV Office Visit (OBGYWM ) CHRISTIAN SUGGS ([id number]) 1945 F Date Time Provider Department 08/05/22 9:20 AM FABY SANTANA OBGYWM During your visit today, we recorded the following information about you: Blood pressure 130/72 Faby Santana MD 08/05/2022 11:36 AM Signed Christian Suggs presents for hysteroscopy. Indication: endometrial mass found on imaging. Denies vaginal bleeding. Wears a catheter chronically. here w/ and daughter who is RN at [employer]. Age: [age] year old LMP: No LMP recorded. Patient is postmenopausal. Contraception: n/a test: n/a VS: BP 130/72 Wt 0 lb (0.0kg) UNIVERSAL PROTOCOL / SAFETY CHECKLIST Procedure to be Performed: Endosee with possible biopsy Sign In: A Moment of CARE was completed. Personnel directly involved with the procedure wore the appropriate PPE (Personal Protective Equipment). Patient/Surrogate Stated/Verified: PATIENT VERIFIED(optional for EMERGENT procedures): Patient name, Date of , Relevant allergies, and The intended procedure Time Out Communication: Intended patient and procedure match the source documents. Consent documented and matches the intended procedure. Relevant labs, photos, and/or imaging studies have been reviewed. No medications required for procedure. No implant(s) inserted. Sign Out: SIGN OUT (optional for EMERGENT procedures): All specimen containers correctly labeled. All instruments, equipment, possible retained foreign bodies accounted for. Post-procedure follow-up management communicated and Plan of Care Visit completed when applicable. Lelo Acosta LPN OBJECTIVE: Cervix cleaned with betadine. A single tooth tenaculum was used to grasp cervix. Cervix was dilated. Under sterile conditions, using 15 mL normal saline as distention, ENDOSEE hysteroscopy performed without incident. Endometrial polyp -large, englulfing most of the cavity, possibly another small one behind it. Tubal ostia visualized and normal. Endometrial biopsy performed. PROCEDURE SUMMARY: Patient tolerated procedure well. ASSESMENT: Endometrial polyp with polyp lesions on hysteroscopy. PLAN: Hysteroscopic polypectomy, DANDC in the OR. .MD Lelo Lozada LPN 08/05/2022 9:18 AM Signed YOUR RECOVERY After your biopsy you may have: Vaginal bleeding (less than a normal menstrual period) Mild cramping Do NOT put anything in the vagina for 1 week after your endometrial biopsy. This includes: tampons douches and refraining from having sexual intercourse If you have any discomfort, you may take an over the counter pain medication (motrin, advil, ibuprofen, tylenol, etc). If this does not relieve your discomfort, contact the office. It is okay to wear a sanitary pad until the discharge and spotting stops. RISKS Although problems seldom occur with endometrial biopsies, there can be some complications. You may feel faint during and shortly after the procedure as well as have some bleeding after the procedure. There is also a risk of infection after the procedure. These complications are rare and can be easily treated. You should contact you doctor is you have any of the following: Heavy bleeding (more than your normal period) Bleeding with clots Severe abdominal pain Fever (more than 100.4F) Foul smelling vaginal discharge RESULTS We will have the results of your biopsy in 1-2 weeks. If you do not hear the results of your biopsy after 2 weeks, please contact the office for the results. If you have any additional questions or concerns please do not hesitate to contact the office. Referring Provider: SELF [200] Allergies As of Date: 08/05/2022 Noted Allergy Reaction MESALAMINE 09/24/2021 17 - Myalgia FLAGYL (NITROIMIDAZOLES) 01/15/2016 14 - Other: See Comments Comments: metal mouth HYDROCODONE BITARTRATE 09/17/2018 8 - GI Upset OXYCODONE 09/17/2018 8 - GI Upset SCOPOLAMINE 09/17/2018 14 - Other: See Comments Date Reviewed: 08/05/2022 Reviewed by: Lelo Acosta LPN - Fully Assessed Reason for Visit: Endometrial Biopsy [7501] Primary Visit Diagnosis:Intramural leiomyoma of uterus [D25.1] Other Visit Diagnosis:Endometrial mass [N94.89] Order(s):SURGICAL PATHOLOGY [[id number]] Order #: [id number]. #:[id number] Prescriptions as of 08/05/2022 - tamsulosin (FLOMAX) 0.4 mg Take 1 capsule by mouth daily at bedtime. - rosuvastatin (CRESTOR) 5 mg tablet Take 1 tablet by mouth once daily. - budesonide, enteric coated (ENTOCORT EC) 3 mg 24 hr capsule Take 2 capsules by mouth daily before breakfast. Resume after Dexamethasone completed - omeprazole (PRILOSEC) 40 mg capsule Take 40 mg by mouth once daily. - meloxicam (MOBIC) 7.5 mg tablet Take 1 tablet by mouth once daily. Take this directly following a meal - DULoxetine (CYMBALTA) 30 mg capsule (more content not included)... Normal [facility] SURGICAL PATHOLOGYon 023 CASE REPORT Normal [facility] Comment on above: Order Comment: Speci men Type: TISSUE SPECIMENOrdering Facility: [facility] Address: [address] [place] [address] Result Comment: Surg ica Pathology Report Case: [id number] Authorizing Provider: Faby Santana MD Collected: 08/05/2022 11:34 AM Ordering Location: OB/Gynecology Received: 08/05/2022 01:55 PM Pathologist: Lorene Jimenez MD Specimen: ENDOMETRIUM BIOPSY Performed By: #### S ####[facility] LABCLIA [id number] [address] CLINICAL HISTORY endometrial mass Normal [facility] Comment on above: Order Comment: Speci men Type: TISSUE SPECIMENOrdering Facility: [facility] Address: [address] [place] [address] Performed By: #### S ####[facility] LABIA [id number] [address] DIAGNOSIS COMMENT Normal [facility] Comment on above: Order Comment: Speci men Type: TISSUE SPECIMENOrdering Facility: [facility] Address: [address] [place] [address] Result Comment: Endo metrium curetting is recommended due to the superficial nature of this specimen, if clinically indicated. Performed By: #### S ####[facility] LABIA [id number] [address] FINAL DIAGNOSIS Normal [facility] Comment on above: Order Comment: Speci men Type: TISSUE SPECIMENOrdering Facility: [facility] Address: [address] [place] [address] Result Comment: A. E ndometrium, biopsy: - Superficial strips of benign endometrium, see comment. Performed By: #### S ####[facility] LABIA [id number] FINAL PERFORMING LAB Normal [facility] Comment on above: Order Comment: Speci men Type: TISSUE SPECIMENOrdering Facility: [facility] Address: [address] [place] [address] Result Comment: Diag nostic interpretation performed at [facility], [address] [place] [address] CLIA# [id number] [employer] Technician: Fernando Briones M.D. Performed By: #### S ####[facility] LABCLIA [id number] [address] GROSS DESCRIPTION Normal [facility] Comment on above: Order Comment: Speci men Type: TISSUE SPECIMENOrdering Facility: [facility] Address: [address] [place] [address] Result Comment: A. E NDOMETRIUM BIOPSY Received in formalin are multiple garza, soft feathery segments of tissue aggregating to 3.0 x 2.0 x 0.2 cm. Totally submitted in one cassette. Gross examination performed at [facility], [address] [place] [address] TTN 08/05/2022 8:49 PM Performed By: #### S ####[facility] LABCLIA [id number] [address] CNOVon 07-31-2022 CNOV Office Visit (OBGYWM ) CHRISTIAN SUGGS ([id number]) 1945 F Date Time Provider Department 07/31/22 4:45 PM DEBI HACKETT OBALYSIA During your visit today, we recorded the following information about you: Allergies As of Date: 07/31/2022 Noted Allergy Reaction MESALAMINE 09/24/2021 17 - Myalgia FLAGYL (NITROIMIDAZOLES) 01/15/2016 14 - Other: See Comments Comments: metal mouth HYDROCODONE BITARTRATE 09/17/2018 8 - GI Upset OXYCODONE 09/17/2018 8 - GI Upset SCOPOLAMINE 09/17/2018 14 - Other: See Comments Date Reviewed: 07/19/2022 Reviewed by: Lelo Vidal LPN - Fully Assessed Reason for Visit: INFORMATION SYSTEMS SECURITY SPECIALIST Ultrasound [020898] Primary Visit Diagnosis:Intramural leiomyoma of uterus [D25.1] Prescriptions as of 07/31/2022 - tamsulosin (FLOMAX) 0.4 mg Take 1 capsule by mouth daily at bedtime. - rosuvastatin (CRESTOR) 5 mg tablet Take 1 tablet by mouth once daily. - budesonide, enteric coated (ENTOCORT EC) 3 mg 24 hr capsule Take 2 capsules by mouth daily before breakfast. Resume after Dexamethasone completed - omeprazole (PRILOSEC) 40 mg capsule Take 40 mg by mouth once daily. - meloxicam (MOBIC) 7.5 mg tablet Take 1 tablet by mouth once daily. Take this directly following a meal - DULoxetine (CYMBALTA) 30 mg capsule Take 1 capsule by mouth daily at bedtime. - aspirin, enteric coated (ASPIRIN, ENTERIC COATED) 81 mg EC tablet Take 81 mg by mouth once daily. - multivitamin ORAL tablet Take 1 tablet by mouth once daily. - Calcium-Vitamin D3-Vitamin K 500-100-40 mg-unit-mcg chew Take 1 tablet by mouth. CHEW TAB BEFORE SWALLOWING twice daily. 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] 06/06/2011 Myringitis [H73.20] 06/06/2011 Osteoporosis [M81.0] 06/06/2011 Lymphocytic colitis [K52.832] 02/07/2016 Neck pain [M54.2] 06/08/2021 08/17/2021 Frequent falls [R29.6] 06/08/2021 08/17/2021 Weakness of back [R29.898] 06/08/2021 08/17/2021 Cerebral ventriculomegaly [G93.89] 02/19/2022 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] 02/19/2022 Balance problems [R26.89] 02/19/2022 Thyroid nodule [E04.1] 02/19/2022 Family history of ischemic heart disease and ot*03/05/2022 COVID-19 [U07.1] 06/20/2022 07/05/2022 Urinary retention [R33.9] 06/21/2022 Fall at home, initial encounter [W19.XXXA, Y92.*06/23/2022 Acute respiratory failure with hypoxemia (HCC) *06/24/2022 06/27/2022 UTI (urinary tract infection) [N39.0] 06/24/2022 Endometrial mass [N94.89] 06/24/2022 Elevated troponin [R77.8] 06/24/2022 07/05/2022 Obesity, Class I, BMI 30-34.9 [E66.9] 06/24/2022 Acute respiratory failure with hypoxia (HCC) [J*06/24/2022 07/05/2022 Aftercare [Z51.89] 06/27/2022 Encounter Status:Closed by DEBI QUINTERO on 07/31/22 Normal [facility] PELVIC US WHIon 07-31-2022 [facility] CNPGhada 07-23-2022 CNPN Telephone (UROLWS) CHRISTIAN SUGGS ([id number]) 1945 F Date Time Provider Department 07/23/22 PRIYANKA REYNOLDS During your visit today, we recorded the following information about you: Lelo Vidal LPN 07/23/2022 10:32 AM Signed ----- Message from Priyanka Reynolds PA-C sent at 07/23/2022 8:42 AM EST ----- No infection in the urine Priyanka Reynolds MPAS, PR, KAEL Vidal LPN 07/23/2022 10:36 AM Signed Called patient. Verified name and date of . Informed of results- verbalizes understanding. Informed I did call her daughter, Marialuisa, last week for update after her visit but mailbox was full. Patient states she will let her know and if she needs to speak with us Marialuisa to call. Lelo Vidal LPN Allergies As of Date: 07/23/2022 Noted Allergy Reaction MESALAMINE 09/24/2021 17 - Myalgia FLAGYL (NITROIMIDAZOLES) 01/15/2016 14 - Other: See Comments Comments: metal mouth HYDROCODONE BITARTRATE 09/17/2018 8 - GI Upset OXYCODONE 09/17/2018 8 - GI Upset SCOPOLAMINE 09/17/2018 14 - Other: See Comments Date Reviewed: 07/19/2022 Reviewed by: Lelo Vidal LPN - Fully Assessed Reason for Visit: Results [95] Prescriptions as of 07/23/2022 - tamsulosin (FLOMAX) 0.4 mg Take 1 capsule by mouth daily at bedtime. - rosuvastatin (CRESTOR) 5 mg tablet Take 1 tablet by mouth once daily. - budesonide, enteric coated (ENTOCORT EC) 3 mg 24 hr capsule Take 2 capsules by mouth daily before breakfast. Resume after Dexamethasone completed - omeprazole (PRILOSEC) 40 mg capsule Take 40 mg by mouth once daily. - meloxicam (MOBIC) 7.5 mg tablet Take 1 tablet by mouth once daily. Take this directly following a meal - DULoxetine (CYMBALTA) 30 mg capsule Take 1 capsule by mouth daily at bedtime. - aspirin, enteric coated (ASPIRIN, ENTERIC COATED) 81 mg EC tablet Take 81 mg by mouth once daily. - multivitamin ORAL tablet Take 1 tablet by mouth once daily. - Calcium-Vitamin D3-Vitamin K 500-100-40 mg-unit-mcg chew Take 1 tablet by mouth. CHEW TAB BEFORE SWALLOWING twice daily. 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] 06/06/2011 Myringitis [H73.20] 06/06/2011 Osteoporosis [M81.0] 06/06/2011 Lymphocytic colitis [K52.832] 02/07/2016 Neck pain [M54.2] 06/08/2021 08/17/2021 Frequent falls [R29.6] 06/08/2021 08/17/2021 Weakness of back [R29.898] 06/08/2021 08/17/2021 Cerebral ventriculomegaly [G93.89] 02/19/2022 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] 02/19/2022 Balance problems [R26.89] 02/19/2022 Thyroid nodule [E04.1] 02/19/2022 Family history of ischemic heart disease and ot*03/05/2022 COVID-19 [U07.1] 06/20/2022 07/05/2022 Urinary retention [R33.9] 06/21/2022 Fall at home, initial encounter [W19.XXXA, Y92.*06/23/2022 Acute respiratory failure with hypoxemia (HCC) *06/24/2022 06/27/2022 UTI (urinary tract infection) [N39.0] 06/24/2022 Endometrial mass [N94.89] 06/24/2022 Elevated troponin [R77.8] 06/24/2022 07/05/2022 Obesity, Class I, BMI 30-34.9 [E66.9] 06/24/2022 Acute respiratory failure with hypoxia (HCC) [J*06/24/2022 07/05/2022 Aftercare [Z51.89] 06/27/2022 Encounter Status:Closed by LELO VDIAL LPN on 07/23/22 Normal [facility] Bacteria Ur Culton 2 Bacteria identified Cx Nom (U) CULTURE, URINE: Normal urogenital agatha: ORGANISM ID: 1 50,000-<100,000 CFU/ml Staphylococcus epidermidis No further workup Normal [facility] Comment on above: Performed By: #### 6 30-4 ####[facility] LABCLIA [id number] [address] CNOVon 07-19-2022 CNOV Office Visit (UROLWS ) CHRISTIAN SUGGS ([id number]) 1945 F Date Time Provider Department 07/19/22 1:20 PM PRIYANKA REYNOLDS During your visit today, we recorded the following information about you: Temperature Pulse Respiration Blood pressure 98.2 degrees 80/minute 14/minute 110/76 Weight Height 75.8 kg 1.659 m Priyanka Reynolds PA-C 07/19/2022 4:27 PM Signed [facility] NEW PATIENT CLINIC NOTE SERVICE DATE: 07/19/2022 SERVICE TIME: 1:50 PM NAME: Christian Suggs CHIEF COMPLAINT: ER follow up HISTORY OF PRESENT ILLNESS: Christian Suggs is a 76 year old female with PMH including Urine retention and Urine Incontinence presenting with follow up from ER visit The patient reports she has damon in place due to failed TOV at hospital We discussed doing a TOV and if not able to pass to place ne catheter and give her Flomax and have her see Dr. Santana as planned and see if there is a uterine mass that may be causing mass effect on on bladder or urethra, and if not have he back to repeat voiding trial on Flomax.urine for culture sent as well. LUTS: DYSURIA: no URGENCY: Yes FREQUENCY:5 per day NOCTURIA: 1 per night STRAINING TO VOID: No EMPTIES COMPLETELY: Yes UTI: No GROSS HEMATURIA: no MICROSCOPIC HEMATURIA: no UA DIPSTICK POSITIVE ONLY: no Other symptoms: LABS: No results found for: TESTOST No results found for: TESTFREE No results found for: PSA Hematocrit (%) Date Value 07/04/2022 40.9 06/23/2022 35.9 06/22/2022 43.8 09/16/2012 34.0 09/15/2012 36.2 09/15/2012 35.4 MEDICATIONS: rosuvastatin (CRESTOR) 5 mg tablet Take 1 tablet by mouth once daily. budesonide, enteric coated (ENTOCORT EC) 3 mg 24 hr capsule Take 2 capsules by mouth daily before breakfast. Resume after Dexamethasone completed omeprazole (PRILOSEC) 40 mg capsule Take 40 mg by mouth once daily. DULoxetine (CYMBALTA) 30 mg capsule Take 1 capsule by mouth daily at bedtime. aspirin, enteric coated (ASPIRIN, ENTERIC COATED) 81 mg EC tablet Take 81 mg by mouth once daily. multivitamin ORAL tablet Take 1 tablet by mouth once daily. Calcium-Vitamin D3-Vitamin K 500-100-40 mg-unit-mcg chew Take 1 tablet by mouth. CHEW TAB BEFORE SWALLOWING twice daily. miSOPROStol (CYTOTEC) 200 mcg tablet Use 1 tablet vaginally one time only for [address] 2 tablets vaginally the morning of the procedure meloxicam (MOBIC) 7.5 mg tablet Take 1 tablet by mouth once daily. Take this directly following a meal (Patient not taking: Reported on 07/19/2022) PAST MEDICAL HISTORY: PAST MEDICAL HISTORY Diagnosis Date Allergic rhinitis Arthritis Back C. difficile enteritis History of back surgery 07/21/2011 Lymphocytic colitis Melanoma (HCC) right thigh Rotator cuff tear arthropathy of right shoulder 07/21/2012 Urinary retention PAST SURGICAL HISTORY: PAST SURGICAL HISTORY Procedure Laterality Date ARTHRP KNE CONDYLEANDPLATU MEDIALANDLAT COMPARTMENTS Right 10/2014 CARPAL TUNNEL 2009 bilateral COLONOSCOPY FLX DX W/COLLJ SPEC WHEN PFRMD 02-02-16 JOINT REPLACEMENT HX ORTHOPEDICS SURGERY HX PAST SURGICAL HISTORY OF 1999 bladder repair PAST SURGICAL HISTORY OF 2007 melanoma removal FAMILY HISTORY: FAMILY HISTORY Problem Relation Age of Onset Heart Father late in life Breast Cancer Maternal Aunt Diabetes Other none Colon Cancer Other none Coronary Artery Disease Other none SOCIAL HISTORY: Social Connections: Not on file REVIEW OF SYSTEMS: GENERAL: No fever, chills, weight loss, or fatigue. ENMT: Negative CARDIOVASCULAR:NO CHEST PAIN, PALPITATIONS, ANKLE EDEMA RESPIRATORY: No chronic cough, wheezing, dyspnea, hemoptysis. GENITOURINARY: SEE HPI MUSCULOSKELETAL:NO CHRONIC BACK PAIN, ARTHRITIS, CHRONIC NECK PAIN SKIN: NO VARICOSE VEINS, RASH, ABNORMAL ITCHING HEME/LYMPH/IMMUNE:Negat cathi for prolonged bleeding, bruising easily or swollen nodes NEUROLOGICAL: NO HEADACHES, NUMBNESS, SEIZURES, STROKE DIABETES: no All other systems reviewed and are negative PHYSICAL EXAMINATION: Blood pressure 110/76, pulse 80, temperature 36.8 ?C (98.2 ?F), temperature source Temporal, resp. rate 14, height 165.9 cm (5' 5.3), weight 75.8 kg (167 lb), SpO2 94 %. GENERAL: WNL nutrition, no deformities, healthy appearing NEURO: Awake, alert and oriented x 3 and Normal gait PSYCH: No signs of depression, anxiety, or agitation ENMT (Ear, Nose, Mouth, Throat): No masses, adenopathy, icterus. Thyroid nonpalpable RESP: NL effort, no retractions or purse-lip breathing. CV: No extremity swelling, varices, edema, pallor, erythema GASTROINTESTINAL: Soft, nontender, nondistended, no masses. HERNIAS: None SKIN: No rash, lesions No palpable lymphadenopathy MUSCULOSKELETAL: Extremities normal. No deformiti (more content not included)... Normal [facility] Calista 07-19-2022 DILLONN Telephone (UROLWS) CHRISTIAN SUGGS ([id number]) 1945 F Date Time Provider Department 07/19/22 PRIYANKA REYNOLDS During your visit today, we recorded the following information about you: Lelo Vidal LPN 07/19/2022 4:58 PM Signed Called [place]- unable to leave message due to mailbox full. Lelo Vidal LPN Allergies As of Date: 07/19/2022 Noted Allergy Reaction MESALAMINE 09/24/2021 17 - Myalgia FLAGYL (NITROIMIDAZOLES) 01/15/2016 14 - Other: See Comments Comments: metal mouth HYDROCODONE BITARTRATE 09/17/2018 8 - GI Upset OXYCODONE 09/17/2018 8 - GI Upset SCOPOLAMINE 09/17/2018 14 - Other: See Comments Date Reviewed: 07/19/2022 Reviewed by: Lelo Vidal LPN - Fully Assessed Reason for Visit: Patient Update [1234] Prescriptions as of 07/23/2022 - tamsulosin (FLOMAX) 0.4 mg Take 1 capsule by mouth daily at bedtime. - rosuvastatin (CRESTOR) 5 mg tablet Take 1 tablet by mouth once daily. - budesonide, enteric coated (ENTOCORT EC) 3 mg 24 hr capsule Take 2 capsules by mouth daily before breakfast. Resume after Dexamethasone completed - omeprazole (PRILOSEC) 40 mg capsule Take 40 mg by mouth once daily. - meloxicam (MOBIC) 7.5 mg tablet Take 1 tablet by mouth once daily. Take this directly following a meal - DULoxetine (CYMBALTA) 30 mg capsule Take 1 capsule by mouth daily at bedtime. - aspirin, enteric coated (ASPIRIN, ENTERIC COATED) 81 mg EC tablet Take 81 mg by mouth once daily. - multivitamin ORAL tablet Take 1 tablet by mouth once daily. - Calcium-Vitamin D3-Vitamin K 500-100-40 mg-unit-mcg chew Take 1 tablet by mouth. CHEW TAB BEFORE SWALLOWING twice daily. 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] 06/06/2011 Myringitis [H73.20] 06/06/2011 Osteoporosis [M81.0] 06/06/2011 Lymphocytic colitis [K52.832] 02/07/2016 Neck pain [M54.2] 06/08/2021 08/17/2021 Frequent falls [R29.6] 06/08/2021 08/17/2021 Weakness of back [R29.898] 06/08/2021 08/17/2021 Cerebral ventriculomegaly [G93.89] 02/19/2022 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] 02/19/2022 Balance problems [R26.89] 02/19/2022 Thyroid nodule [E04.1] 02/19/2022 Family history of ischemic heart disease and ot*03/05/2022 COVID-19 [U07.1] 06/20/2022 07/05/2022 Urinary retention [R33.9] 06/21/2022 Fall at home, initial encounter [W19.XXXA, Y92.*06/23/2022 Acute respiratory failure with hypoxemia (HCC) *06/24/2022 06/27/2022 UTI (urinary tract infection) [N39.0] 06/24/2022 Endometrial mass [N94.89] 06/24/2022 Elevated troponin [R77.8] 06/24/2022 07/05/2022 Obesity, Class I, BMI 30-34.9 [E66.9] 06/24/2022 Acute respiratory failure with hypoxia (HCC) [J*06/24/2022 07/05/2022 Aftercare [Z51.89] 06/27/2022 Encounter Status:Closed by LELO VIDAL LPN on 07/23/22 [facility] Calista 07-18-2022 CNPN Telephone (OBGYWM) CHRISTIAN SUGGS ([id number]) 1945 F Date Time Provider Department 07/18/22 FABY SANTANA During your visit today, we recorded the following information about you: Edita Montana Ma 07/18/2022 10:23 AM Signed Patient has appointment with you on 08/05/2021. CT scan done at ED on 06/22/2022. Recommends ultrasound. Would you like her to have one done prior to her appointment. Openings the morning of appointment. Order pending. Patient will need called to schedule if appropriate. Edita Santana MD 07/19/2022 10:16 AM Signed I would like her to have US before. Also, that day we will probably do EMB and in office endosee. Orders entered. Please let her know. Use cytotec in am . Thanks. MD Hue Lozada RN 07/19/2022 10:39 AM Signed Patient notified and voiced understanding. Pelvic ultrasound scheduled. Reviewed cytotec instructions with patient. Hue Miller RN Allergies As of Date: 07/18/2022 Noted Allergy Reaction MESALAMINE 09/24/2021 17 - Myalgia FLAGYL (NITROIMIDAZOLES) 01/15/2016 14 - Other: See Comments Comments: metal mouth HYDROCODONE BITARTRATE 09/17/2018 8 - GI Upset OXYCODONE 09/17/2018 8 - GI Upset SCOPOLAMINE 09/17/2018 14 - Other: See Comments Date Reviewed: 07/05/2022 Reviewed by: Merari Sorenson RN - Fully Assessed Reason for Visit: Future Appointment [256] Primary Visit Diagnosis:Abnormal CT scan [R93.89] Order(s):PELVIC US [facility]I [[id number]] Order #: [id number]: 1 FUTURE miSOPROStol (CYTOTEC) 200 mcg tabletUse 1 tablet vaginally one time only for [address] 2 tablets vaginally the morning of the procedureDisp: 1 tabletRfl: 0 Prescriptions as of 07/19/2022 - miSOPROStol (CYTOTEC) 200 mcg tablet Use 1 tablet vaginally one time only for [address] 2 tablets vaginally the morning of the procedure - rosuvastatin (CRESTOR) 5 mg tablet Take 1 tablet by mouth once daily. - budesonide, enteric coated (ENTOCORT EC) 3 mg 24 hr capsule Take 2 capsules by mouth daily before breakfast. Resume after Dexamethasone completed - omeprazole (PRILOSEC) 40 mg capsule Take 40 mg by mouth once daily. - meloxicam (MOBIC) 7.5 mg tablet Take 1 tablet by mouth once daily. Take this directly following a meal - DULoxetine (CYMBALTA) 30 mg capsule Take 1 capsule by mouth daily at bedtime. - aspirin, enteric coated (ASPIRIN, ENTERIC COATED) 81 mg EC tablet Take 81 mg by mouth once daily. - multivitamin ORAL tablet Take 1 tablet by mouth once daily. - Calcium-Vitamin D3-Vitamin K 500-100-40 mg-unit-mcg chew Take 1 tablet by mouth. CHEW TAB BEFORE SWALLOWING twice daily. 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] 06/06/2011 Myringitis [H73.20] 06/06/2011 Osteoporosis [M81.0] 06/06/2011 Lymphocytic colitis [K52.832] 02/07/2016 Neck pain [M54.2] 06/08/2021 08/17/2021 Frequent falls [R29.6] 06/08/2021 08/17/2021 Weakness of back [R29.898] 06/08/2021 08/17/2021 Cerebral ventriculomegaly [G93.89] 02/19/2022 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] 02/19/2022 Balance problems [R26.89] 02/19/2022 Thyroid nodule [E04.1] 02/19/2022 Family history of ischemic heart disease and ot*03/05/2022 COVID-19 [U07.1] 06/20/2022 07/05/2022 Urinary retention [R33.9] 06/21/2022 Fall at home, initial encounter [W19.XXXA, Y92.*06/23/2022 Acute respiratory failure with hypoxemia (HCC) *06/24/2022 06/27/2022 UTI (urinary tract infection) [N39.0] 06/24/2022 Endometrial mass [N94.89] 06/24/2022 Elevated troponin [R77.8] 06/24/2022 07/05/2022 Obesity, Class I, BMI 30-34.9 [E66.9] 06/24/2022 Acute respiratory failure with hypoxia (HCC) [J*06/24/2022 07/05/2022 Aftercare [Z51.89] 06/27/2022 Prescriptions ordered this encounter Disp Refills Start End MISOPROSTOL 200 MCG TABLET 1 ta* 0 07/19/2022 07/19/2022 Route: VAGINAL Sig: Use 1 tablet vaginally one time only for [address] 2 tablets vaginally the morning of the procedure Encounter Status:Closed by HUE MILLER RN on 07/19/22 [facility] 06-27-2022 [facility] HNO ID: [id number] Author: Leonela Stein MD Service: General Internal Medicine Author Type: Physician Type: Discharge Summary Filed: 06/29/2022 8:19 PM Note Text: DISCHARGE SUMMARY PATIENT NAME: Christian Suggs ADMISSION DATE: 06/23/2022 DISCHARGE DATE: 06/27/2022 Attending Physician: Leonela Stein MD Code Status: Not on file Highest Readmission Risk Score: 16 The 30 day readmissions risk score is derived from an internally validated risk model which evaluates patient level characteristics, utilization history, medication orders and lab results up until the day of discharge. Patients with a score of 40 or above are considered highest risk for readmission. Specific patient level drivers will be listed at the bottom of the summary. Reason for Hospitalization: Acute respiratory failure with hypoxia, COVID-19 infection Diagnosis: Principal Problem: Fall at home, initial encounter POA: Yes Active Problems: COVID-19 POA: Yes Urinary retention POA: Yes UTI (urinary tract infection) POA: Yes Endometrial mass POA: Yes Elevated troponin POA: Yes Obesity, Class I, BMI 30-34.9 POA: Yes Acute respiratory failure with hypoxia (HCC) POA: Yes Resolved Problems: Acute respiratory failure with hypoxemia (HCC) POA: Yes Hospital Course as Described to the Patient: You were admitted for Acute respiratory failure with hypoxia, COVID-19 infection. This is a 76 year old female with PMH of OA, right thigh melanoma, spinal stenosis, GERD, who presented to the hospital from [place] ED for evaluation and treatment of persistent generalize weakness and a fall. CT brain 06/22/22 showed no acute intracranial injury. CT cervical spine showed no evidence of cervical spine fracture, however showed right thyroid mass decrease. CT A/P 06/22/22 with 2.0 x 1.3 x 1.9 cm hypodense mass in the region of the endometrial canal and diffuse bladder wall thickening and hyperemia. Pt tested positive for COVID-19 on 06/21/2022. CXR on admission unremarkable. CBC on admission with no leukocytosis or severe anemia. Urine cultures positive for E. Coli. Pt was noted to have urinary retention and damon catheter was placed on admission to [place]. Pt was noted to have hypoxia on admission requiring 2 L of O2. ID was consulted and recommended 5 days of IV Remdesivir, which she completed. Pt to continue PO Dexamethasone as O/P as prescribed. She completed 5 days of IV Rocephin. Urology was consulted and recommended voiding trial, which she failed. Damon was replaced. Pt will need to follow up with urologist in the area for possible cystoscopy. INFORMATION SYSTEMS SECURITY SPECIALIST was consulted for endometrial mass and recommended outpatient INFORMATION SYSTEMS SECURITY SPECIALIST US and evaluation. Pt was transferred to SNF in stable condition for further therapy. Transitions of Care Critical Issues: SPECIALIST FOLLOW-UP: INFORMATION SYSTEMS SECURITY SPECIALIST, urology LABS AND PROCEDURES PENDING AT DISCHARGE: No pending results. Additional Provider to Provider Information: Principal Problem: Fall at home, initial encounter Assessment AND Plan: -Likely due to generalized weakness in setting of COVID -CT brain and cervical spine negative for acute changes -PT/OT recommended home therapy, however pt is really unsteady on her feet and requires assistance wth ambulating and ADLs -Transferred to SNF for additional therapy Active Problems: Acute respiratory failure with hypoxemia (HCC) COVID-19 Assessment AND Plan: -COVID-19 positive 06/20/2022 -CXR on admission unremarkable -CRP 7.5. Hypoxic on admission requiring 2 L of O2 -ID consulted. Completed Remdesivir for 5 days per ID recs -Continue with Dexamethasone for 6 more days -Continue with supportive care UTI (urinary tract infection) Urinary retention Assessment AND Plan: -UC positive for E. Coli. Completed Rocephin x 5 days -Urinary retention on admission. FC placed -Urology consult per discussion with attending. Failed voiding trial with FC replaced -Follow up with urology in the area for possible cysto Endometrial mass Assessment AND Plan: -CT A/P on admission with 2.0 x 1.3 x 1.9 cm hypodense mass in the region of the endometrial canal -INFORMATION SYSTEMS SECURITY SPECIALIST consulted this admission. Recommend INFORMATION SYSTEMS SECURITY SPECIALIST US and O/P follow up with local INFORMATION SYSTEMS SECURITY SPECIALIST in [place] Elevated troponin Assessment AND Plan: -HS 15>14>14 on admission, likely in setting of acute COVID-19 infection -EKG on admission with no acute ischemic changes -Cardiology consulted. No further work up Operations During Hospitalization: None Procedures During Hospitalization: CT Scan EKG chest x-ray Consulting Teams During Hospitalization: Treatment Team: Attending Provider: Leonela Stein MD Consulting: Vivien Dietz MD Consulting: Omayra Pearce MD Nurse Practitioner: Massiel Stallings APRN.[facility]ILL[place] INFORMATION SYSTEMS SECURITY SPECIALIST Patient Condition @ Discharge: Stable Discharge Disposition: Group Home Facility Discharge Physical Exam: VITAL SIGNS: BP 122/71 Pulse 64 Temp 36.5 ?C (97.7 ?F) ( (more content not included)... [facility] HNO ID: [id number] Author: Leonela Stein MD Service: ? Author Type: Physician Type: Discharge Summary Filed: 06/29/2022 8:19 PM Note Text: DISCHARGE SUMMARY PATIENT NAME: Christian Suggs ADMISSION DATE: 06/23/2022 DISCHARGE DATE: 06/27/2022 Attending Physician: Leonela Stein MD Code Status: Not on file Highest Readmission Risk Score: 16 The 30 day readmissions risk score is derived from an internally validated risk model which evaluates patient level characteristics, utilization history, medication orders and lab results up until the day of discharge. Patients with a score of 40 or above are considered highest risk for readmission. Specific patient level drivers will be listed at the bottom of the summary. Reason for Hospitalization: Acute respiratory failure with hypoxia, COVID-19 infection Diagnosis: Principal Problem: Fall at home, initial encounter POA: Yes Active Problems: COVID-19 POA: Yes Urinary retention POA: Yes UTI (urinary tract infection) POA: Yes Endometrial mass POA: Yes Elevated troponin POA: Yes Obesity, Class I, BMI 30-34.9 POA: Yes Acute respiratory failure with hypoxia (HCC) POA: Yes Resolved Problems: Acute respiratory failure with hypoxemia (HCC) POA: Yes Hospital Course as Described to the Patient: You were admitted for Acute respiratory failure with hypoxia, COVID-19 infection. This is a 76 year old female with PMH of OA, right thigh melanoma, spinal stenosis, GERD, who presented to the hospital from [place] ED for evaluation and treatment of persistent generalize weakness and a fall. CT brain 06/22/22 showed no acute intracranial injury. CT cervical spine showed no evidence of cervical spine fracture, however showed right thyroid mass decrease. CT A/P 06/22/22 with 2.0 x 1.3 x 1.9 cm hypodense mass in the region of the endometrial canal and diffuse bladder wall thickening and hyperemia. Pt tested positive for COVID-19 on 06/21/2022. CXR on admission unremarkable. CBC on admission with no leukocytosis or severe anemia. Urine cultures positive for E. Coli. Pt was noted to have urinary retention and damon catheter was placed on admission to [place]. Pt was noted to have hypoxia on admission requiring 2 L of O2. ID was consulted and recommended 5 days of IV Remdesivir, which she completed. Pt to continue PO Dexamethasone as O/P as prescribed. She completed 5 days of IV Rocephin. Urology was consulted and recommended voiding trial, which she failed. Damon was replaced. Pt will need to follow up with urologist in the area for possible cystoscopy. INFORMATION SYSTEMS SECURITY SPECIALIST was consulted for endometrial mass and recommended outpatient INFORMATION SYSTEMS SECURITY SPECIALIST US and evaluation. Pt was transferred to SNF in stable condition for further therapy. Transitions of Care Critical Issues: SPECIALIST FOLLOW-UP: INFORMATION SYSTEMS SECURITY SPECIALIST, urology LABS AND PROCEDURES PENDING AT DISCHARGE: No pending results. Additional Provider to Provider Information: Principal Problem: Fall at home, initial encounter Assessment AND Plan: -Likely due to generalized weakness in setting of COVID -CT brain and cervical spine negative for acute changes -PT/OT recommended home therapy, however pt is really unsteady on her feet and requires assistance wth ambulating and ADLs -Transferred to SNF for additional therapy Active Problems: Acute respiratory failure with hypoxemia (HCC) COVID-19 Assessment AND Plan: -COVID-19 positive 06/20/2022 -CXR on admission unremarkable -CRP 7.5. Hypoxic on admission requiring 2 L of O2 -ID consulted. Completed Remdesivir for 5 days per ID recs -Continue with Dexamethasone for 6 more days -Continue with supportive care UTI (urinary tract infection) Urinary retention Assessment AND Plan: -UC positive for E. Coli. Completed Rocephin x 5 days -Urinary retention on admission. FC placed -Urology consult per discussion with attending. Failed voiding trial with FC replaced -Follow up with urology in the area for possible cysto Endometrial mass Assessment AND Plan: -CT A/P on admission with 2.0 x 1.3 x 1.9 cm hypodense mass in the region of the endometrial canal -INFORMATION SYSTEMS SECURITY SPECIALIST consulted this admission. Recommend INFORMATION SYSTEMS SECURITY SPECIALIST US and O/P follow up with local INFORMATION SYSTEMS SECURITY SPECIALIST in [place] Elevated troponin Assessment AND Plan: -HS 15>14>14 on admission, likely in setting of acute COVID-19 infection -EKG on admission with no acute ischemic changes -Cardiology consulted. No further work up Operations During Hospitalization: None Procedures During Hospitalization: CT Scan EKG chest x-ray Consulting Teams During Hospitalization: Treatment Team: Attending Provider: Leonela Stein MD Consulting: Omayra Pearce MD INFORMATION SYSTEMS SECURITY SPECIALIST Patient Condition @ Discharge: Stable Discharge Disposition: Group Home Facility Discharge Physical Exam: VITAL SIGNS: BP 122/71 Pulse 64 Temp 36.5 ?C (97.7 ?F) (Oral) Resp 18 Ht 162.6 cm (5' 4) Wt 78.3 kg (172 lb 9.9 oz) SpO2 95% BMI 29.63 kg/m? (more content not included)... Normal [facility] Comprehensive metabolic 2000 panelon 06-27-2022 Albumin [Mass/Vol] 3.5 g/dL Low 3.9-4.9 [facility] Comment on above: Order Comment: Speci men Type: BLOOD SPECIMEN Ordering Facility: [facility] Address: [address] [place] [address] Performed By: #### 2 4323-8 #### [facility] CLIA [id number] [address] [place] [address] [place] ALP [Catalytic activity/Vol] 72 U/L Normal 34-123 [facility] Comment on above: Order Comment: Speci men Type: BLOOD SPECIMEN Ordering Facility: [facility] Address: [address] [place] [address] Performed By: #### 2 4323-8 #### [facility] CLIA [id number] [address] [place] [address] [place] ALT [Catalytic activity/Vol] 20 U/L Normal 7-38 [facility] Comment on above: Order Comment: Speci men Type: BLOOD SPECIMEN Ordering Facility: [facility] Address: [address] [place] [address] Performed By: #### 2 4323-8 #### [facility] CLIA [id number] [address] [place] [address] [place] Anion gap [Moles/Vol] 10 mmol/L Normal 9-18 [facility] Comment on above: Order Comment: Speci men Type: BLOOD SPECIMEN Ordering Facility: [facility] Address: [address] [address] Performed By: #### 2 4323-8 #### [facility] CLIA [id number] [address] [place] [address] [place] AST [Catalytic activity/Vol] 20 U/L Normal 13-35 [facility] Comment on above: Order Comment: Speci men Type: BLOOD SPECIMEN Ordering Facility: [facility] Address: [address] [place] [address] Performed By: #### 2 4323-8 #### [facility] CLIA [id number] [address] [place] [address] [place] Bilirubin [Mass/Vol] mg/dL Low 0.2-1.3 [facility] Comment on above: Order Comment: Speci men Type: BLOOD SPECIMEN Ordering Facility: [facility] Address: [address] [address] Performed By: #### 2 4323-8 #### [facility] CLIA [id number] [address] [place] [address] [place] Calcium [Mass/Vol] 9.2 mg/dL Normal 8.5-10.2 [facility] Comment on above: Order Comment: Speci men Type: BLOOD SPECIMEN Ordering Facility: [facility] Address: [address] [place] [address] Performed By: #### 2 4323-8 #### [facility] CLIA [id number] [address] [place] [address] [place] Chloride [Moles/Vol] 104 mmol/L Normal 97-105 [facility] Comment on above: Order Comment: Speci men Type: BLOOD SPECIMEN Ordering Facility: [facility] Address: [address] [address] Performed By: #### 2 4323-8 #### [facility] CLIA [id number] [address] [place] [address] [place] CO2 [Moles/Vol] 25 mmol/L Normal 22-30 [facility] Comment on above: Order Comment: Speci men Type: BLOOD SPECIMEN Ordering Facility: [facility] Address: [address] [address] Performed By: #### 2 4323-8 #### [facility] CLIA [id number] [address] [place] [address] [place] Creatinine [Mass/Vol] 0.75 mg/dL Normal 0.58-0.96 [facility] Comment on above: Order Comment: Speci men Type: BLOOD SPECIMEN Ordering Facility: [facility] Address: [address] [address] Performed By: #### 2 4323-8 #### [facility] CLIA [id number] [place] [address] [place] ESTIMATED GLOMERULAR FILTRATION RATE 82 mL/min/1.73m??? Normal >=60 [facility] Comment on above: Order Comment: rFedy dowd Type: BLOOD SPECIMEN Ordering Facility: [facility] Address: [address] [place] [address] Result Comment: Anna mated Glomerular Filtration Rate (eGFR) is calculated using the 2020 CKD-EPI creatinine equation. This equation utilizes serum creatinine, sex, and age as parameters. The creatinine assay has traceable calibration to isotope dilution-mass spectrometry. Refer to KDIGO guidelines for clinical interpretation. In patients with unstable renal function, e.g. those with acute kidney injury, the eGFR may not accurately reflect actual GFR. Performed By: #### 2 4323-8 #### [facility] CLIA [id number] [place] [address] [place] Glucose [Mass/Vol] 88 mg/dL Normal 74-99 [facility] Comment on above: Order Comment: Fredy dowd Type: BLOOD SPECIMEN Ordering Facility: [facility] Address: [address] [place] [address] Result Comment: The [place] [employer] (ADA) provides guidance for cutoff values for fasting glucose and random glucose. The ADA defines fasting as no caloric intake for at least 8 hours. Fasting plasma glucose results between 100 to 125 mg/dL indicate increased risk for diabetes (prediabetes). Fasting plasma glucose results greater than or equal to 126 mg/dL meet the criteria for diagnosis of diabetes. In the absence of unequivocal hyperglycemia, results should be confirmed by repeat testing. In a patient with classic symptoms of hyperglycemia or hyperglycemic crisis, random plasma glucose results greater than or equal to 200 mg/dL meet the criteria for diagnosis of diabetes. Reference: Standards of Medical Care in Diabetes 2016, [place] [employer]. Diabetes Care. 2016.39(Suppl 1). Performed By: #### 2 4323-8 #### [facility] CLIA [id number] [address] [place] [address] [place] Potassium [Moles/Vol] 3.7 mmol/L Normal 3.7-5.1 [facility] Comment on above: Order Comment: Speci men Type: BLOOD SPECIMEN Ordering Facility: [facility] Address: [address] [address] Performed By: #### 2 4323-8 #### [facility] CLIA [id number] [address] [place] [address] [place] Protein [Mass/Vol] 6.1 g/dL Low 6.3-8.0 [facility] Comment on above: Order Comment: Speci men Type: BLOOD SPECIMEN Ordering Facility: [facility] Address: [address] [place] [address] Performed By: #### 2 4323-8 #### [facility] [facility] CLIA [id number] [address] [place] [address] [place] Sodium [Moles/Vol] 139 mmol/L Normal 136-144 [facility] Comment on above: Order Comment: Speci men Type: BLOOD SPECIMEN Ordering Facility: [facility] Address: [address] [place] [address] Performed By: #### 2 4323-8 #### [facility] CLIA [id number] [address] [place] [address] [place] Urea nitrogen [Mass/Vol] 20 mg/dL Normal 7-21 [facility] Comment on above: Order Comment: Speci men Type: BLOOD SPECIMEN Ordering Facility: [facility] Address: [address] [place] [address] Performed By: #### 2 4323-8 #### [facility] CLIA [id number] [address] [place] [address] [place] NURSING PROGon 06-27-2022 NURSING PROG HNO ID: [id number] Author: Eladia Barnhart RN Service: Nursing Author Type: Registered Nurse Type: Nursing Progress Note Filed: 06/27/2022 3:28 PM Note Text: Received report, provided fresh ice water, bed alarm on, call light in reach maintained tele batteries and leads, reviewed vitals, labs, orders, tests, notes. med pass per order, nurse assessment as charted, pain assessment. Meal provided as ordered. personal hygiene, oral and gonzález care. Fresh linens and gown offered/provided. vitals as ordered/indicated 0700 vitals stable, up to commode, a/o x3 mild anxiety, forgetful. 0800 damon 500 cc. Covid pos, last dose remdesivir today. 0900 up to chair for meds and meal. One assist and walker, pt starts out walking on heels. 1000 anticipate d/c today 1400, asked pharm to send remdesivir early. Patient does not remember that she is going to rehab, she called her to pick her up. 1100 follow up with INFORMATION SYSTEMS SECURITY SPECIALIST for fibroid mass outpatient. , urology for retention. BM today. 1200 rounds by EMBEDDED DEVELOPER, remdesivir infusing. Friends visiting patient. 1300 lunch provided 1400 back to bed 1530 Discharge written, discharge and medication instructions with common potential side effects given to: [facility] Scripts given / called in to: NONE Understanding verbalized by patient, questions answered including: COVID PRECAUTIONS Follow up appts if any listed for patient: PCP, INFORMATION SYSTEMS SECURITY SPECIALIST, UROLOGY Discharged to [facility] via AMBULANCE Left with all personal possessions, including: CELL, PHOTOCOMPOSING MACHINE OPERATOR, 2 BOOKS, CLOTHING, SHOES, GLASSES iv and tele off PRIOR TO LEAVING COVID GUIDELINES RE ISOLATION, MASKING, FOR 5 DAYS FROM DIAGNOSIS, AND SOCIAL DISTANCING, AND HAND HYGIENE GIVEN. Normal [facility] ALLIED [facility] 06-26-2022 ALLIED HEALTH HNO ID: [id number] Author: Chaplain Tomas Service: Spiritual Care Author Type: Shrink Pit Supervisor Type: Allied Health Filed: 06/26/2022 3:33 PM Note Text: SPIRITUAL CARE ASSESSMENT SERVICE DATE: 06/26/2022 SERVICE TIME: 1:43 PM Visit with: Patient Length of visit (minutes): 5 Denominational / Spirituality: Evangelical Reason: Initial visit ASSESSMENT Emotional Disposition: Grateful, Hopeful, and Peaceful Relational Concerns: Not assessed Spiritual Concerns: Not assessed INTERVENTIONS Empowerment: Informed patient of spiritual care resources available Exploration: None / Not Applicable Relationship Building: None / Not Applicable Ritual: None / Not Applicable OUTCOMES Patient expressed gratitude and Spiritual resources utilized PLAN Will follow as circumstances allow COMMENTS: Per request from the pt's friend Renay, I introduced myself and Spiritual Care to the pt. I gave her some information about Spiritual Care. She said that she will look over it and would contact a dental treatment coordinator if needed. I let her know of dental treatment coordinator availability. SIGNATURE: Chaplain Tomas PATIENT NAME: Christian Suggs DATE: June 26, 2022 TIME: 3:31 PM PAGER/CONTACT #: [phone] Normal [facility] Basic metabolic 2000 panelon 06-26-2022 Anion gap [Moles/Vol] 11 mmol/L Normal 9-18 [facility] Comment on above: Order Comment: Speci men Type: BLOOD SPECIMENOrdering Facility: [facility] Address: [address] [address] Performed By: #### 2 4321-2 ####[facility] [id number] [place] [address] [place] Calcium [Mass/Vol] 9.3 mg/dL Normal 8.5-10.2 [facility] Comment on above: Order Comment: Speci men Type: BLOOD SPECIMENOrdering Facility: [facility] Address: [address] [address] Performed By: #### 2 4321-2 ####[facility] [id number] [place] [address] [place] Chloride [Moles/Vol] 106 mmol/L High 97-105 [facility] Comment on above: Order Comment: Speci men Type: BLOOD SPECIMENOrdering Facility: [facility] Address: [address] [address] Performed By: #### 2 4321-2 ####[facility] [id number] [place] [id number] [place] CO2 [Moles/Vol] 24 mmol/L Normal 22-30 [facility] Comment on above: Order Comment: Speci men Type: BLOOD SPECIMENOrdering Facility: [facility] Address: [address] [address] Performed By: #### 2 4321-2 ####[facility] [id number] [place] [id number] [place] Creatinine [Mass/Vol] 0.72 mg/dL Normal 0.58-0.96 [facility] Comment on above: Order Comment: Fredy dowd Type: BLOOD SPECIMENOrdering Facility: [facility] Address: [address] [address] Performed By: #### 2 4321-2 ####[facility] [id number] [place] [id number] [place] ESTIMATED GLOMERULAR FILTRATION RATE 86 mL/min/1.73m??? Normal >=60 [facility] Comment on above: Order Comment: Fredy dowd Type: BLOOD SPECIMENOrdering Facility: [facility] Address: [address] [place] [address] Result Comment: Anna mated Glomerular Filtration Rate (eGFR) is calculated using the 2020 CKD-EPI creatinine equation. This equation utilizes serum creatinine, sex, and age as parameters. The creatinine assay has traceable calibration to isotope dilution-mass spectrometry. Refer to KDIGO guidelines for clinical interpretation. In patients with unstable renal function, e.g. those with acute kidney injury, the eGFR may not accurately reflect actual GFR. Performed By: #### 2 4321-2 ####[facility] [id number] [place] [address] [place] Glucose [Mass/Vol] 93 mg/dL Normal 74-99 [facility] Comment on above: Order Comment: Fredy dowd Type: BLOOD SPECIMENOrdering Facility: [facility] Address: [address] [place] [address] Result Comment: The [place] [employer] (ADA) provides guidance for cutoff values for fasting glucose and random glucose. The ADA defines fasting as no caloric intake for at least 8 hours. Fasting plasma glucose results between 100 to 125 mg/dL indicate increased risk for diabetes (prediabetes). Fasting plasma glucose results greater than or equal to 126 mg/dL meet the criteria for diagnosis of diabetes. In the absence of unequivocal hyperglycemia, results should be confirmed by repeat testing. In a patient with classic symptoms of hyperglycemia or hyperglycemic crisis, random plasma glucose results greater than or equal to 200 mg/dL meet the criteria for diagnosis of diabetes. Reference: Standards of Medical Care in Diabetes 2016, [place] [employer]. Diabetes Care. 2016.39(Suppl 1). Performed By: #### 2 4321-2 ####[facility] [id number] [place] [id number] [place] Potassium [Moles/Vol] 3.8 mmol/L Normal 3.7-5.1 [facility] Comment on above: Order Comment: Speci men Type: BLOOD SPECIMENOrdering Facility: [facility] Address: [address] [place] [address] Performed By: #### 2 4321-2 ####[facility] [id number] [place] [id number] [place] Sodium [Moles/Vol] 141 mmol/L Normal 136-144 [facility] Comment on above: Order Comment: Speci men Type: BLOOD SPECIMENOrdering Facility: [facility] Address: [address] [place] [address] Performed By: #### 2 4321-2 ####[facility] [id number] [place] [id number] [place] Urea nitrogen [Mass/Vol] 25 mg/dL High 7-21 [facility] Comment on above: Order Comment: Speci men Type: BLOOD SPECIMENOrdering Facility: [facility] Address: [address] [place] [address] Performed By: #### 2 4321-2 ####[place] [facility] [id number] [address] [id number] [facility] CONSULT PROGon 06-26-2022 CONSULT PROG HNO ID: [id number] Author: Vivien Dietz MD Service: Infectious Disease Author Type: Physician Type: Consult Progress Note Filed: 06/27/2022 5:07 AM Note Text: INFECTIOUS DISEASE CONSULT PROGRESS NOTES PATIENT NAME: Christian Suggs SERVICE DATE: 06/26/2022 ASSESSMENT AND PLAN: mechanical fall ---at home prior to hospitalization. Skeletal survey negative for any fractures. COVID positive diagnosed on 06/20. Pneumonia pneumonia IV remdesivir--till 06/27 p.o. Decadron Acute hypoxemic respiratory failure on 2l n/c o2 confusional state. E. COLI Urinary tract infection. 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 IV ceftriaxone. Generalized weakness--POA likely due to hypoxemia /COVID. and urinary tract infection. Endometrial mass-- Gynecology is consulted Could be polyp vs fibroid vs pre-malignancy vs malignancy Discussed with patient and nursing staff Interval HPI-pt on 2l n/c o2 today urine culture with e. 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 no calf pain No focal motor neurological symptoms MEDICATIONS: Current Facility-Administered Medications Medication Dose Route Frequency NaCl 0.9% iv flush bag 20 mL INTRAVENOUS PRN sodium chloride 0.9 % (flush) 3-5 mL (BD POSIFLUSH) 3-5 mL INTRAVENOUS q 12 H acetaminophen 650 mg tab(s) (TYLENOL) 650 mg ORAL q 6 H PRN [id number]-[id number] in D3 500 mg-5 mcg (200 unit) 1 tablet 1 tablet ORAL BID budesonide, enteric coated 6 mg cap(s) (ENTOCORT EC) 6 mg ORAL BEFORE BREAKFAST DAILY therapeutic multivitamin-minerals tablet (THERA-M PLUS) 1 tablet ORAL DAILY meloxicam 7.5 mg tab(s) (MOBIC) 7.5 mg ORAL DAILY aspirin, enteric coated 81 mg tab(s) 81 mg ORAL DAILY DULoxetine 30 mg cap(s) (CYMBALTA) 30 mg ORAL AT BEDTIME rosuvastatin 5 mg tab(s) (CRESTOR) 5 mg ORAL AT BEDTIME cefTRIAXone iv piggyback 1 g in dextrose (iso-osmotic) 50 mL (ROCEPHIN) 1 g INTRAVENOUS q [address] 40 mg tab(s) (PROTONIX) 40 mg ORAL DAILY (6 AM) remdesivir in NaCl 0.9% Vial-Mate/ADD-[place] 100 mg 275 mL 100 mg INTRAVENOUS q 24 HR dexAMETHasone 6 mg tab(s) (DECADRON) 6 mg ORAL DAILY WITH BREAKFAST melatonin 3 mg tab(s) 3 mg ORAL AT BEDTIME PRN OBJECTIVE PHYSICAL EXAM: BP 129/75 Pulse 66 Temp (Src) 97.2 (Oral) Resp 18 Ht 5' 4 (1.63m) Wt 172 lb 9.9 oz (78.3kg) SpO2 97% BMI 29.62 kg/(m2). O2 Therapy: Nasal Cannula, Liters: 2.00 Skin: No evident rash. Neck: Supple. Oropharynx clear. No evidence of thrush. No cervical lymphadenopathy. Chest: Decreased air entry, bilateral bases. Few rales heard. Cardiovascular: S1, S2 normal. No murmur, no gallop heard. Abdomen: Soft, nontender. No organomegaly. Bowel sounds present. Extremities: Trace edema is present. No joint effusions. Moving all 4 extremities. Diagnostic tests reviewed for today's visit: Most recent labs and compared Most recent micro/ ekg Most recent imaging and compared CBC, Coags, BMP, Mg, Phos Recent Labs 06/26/22 0709 06/25/22 0757 06/24/22 0728 NA 141 141 145* K 3.8 3.8 3.9 CHLOR 106* 107* 109* CO2 24 24 21* BUN 25* 20 16 CREAT 0.72 0.69 0.76 GLUC 93 95 94 CA 9.3 9.1 8.7 CRP 7.5 06/21/2022 Vivien Dietz MD 06/26/2022 9:50 PM Normal [facility] NURSING PROGon 06-26-2022 NURSING PROG HNO ID: [id number] Author: Danielle Weldon RN Service: Nursing Author Type: Registered Nurse Type: Nursing Progress Note Filed: 06/26/2022 7:08 AM Note Text: Pt up to urinate this AM- voided 300mL. PVR with 767 as the highest. Last void before that was at 1930. Damon removed yesterday morning. Per uro note want damon replaced if bladder scan >450. Team paged for order. Pt with visible mass at urethral meatus. Urology paged to clarify if ok to place damon or if needing to be placed by urology. Per uro, ok to place. Damon replaced at this time. Normal [facility] THERAPY NTon 06-26-2022 THERAPY NT HNO ID: [id number] Author: Kieran Orr, PT Service: Physical Therapy Author Type: Physical Therapist Type: Therapy (PT/OT/Speech/Resp) Filed: 06/26/2022 2:31 PM Note Text: PHYSICAL THERAPY MISSED VISIT SERVICE DATE: 06/26/2022 SERVICE TIME: 1315 to 1315 ROOM: [address] [place] [address] Patient not seen due to Eating. SIGNATURE: Kieran Orr PT PATIENT NAME: Christian Suggs DATE: June 26, 2022 TIME: 2:31 PM [facility] CONSULT PROGon 06-25-2022 CONSULT PROG HNO ID: [id number] Author: Vivien Dietz MD Service: Infectious Disease Author Type: Physician Type: Consult Progress Note Filed: 06/26/2022 5:11 AM Note Text: INFECTIOUS DISEASE CONSULT PROGRESS NOTES PATIENT NAME: Christian Suggs SERVICE DATE: 06/25/2022 ASSESSMENT AND PLAN: mechanical fall ---at home prior to hospitalization. Skeletal survey negative for any fractures. COVID positive diagnosed on 06/20. Pneumonia pneumonia IV remdesivir--till 06/27 p.o. Decadron Acute hypoxemic respiratory failure confusional state. E. COLI Urinary tract infection. 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 IV ceftriaxone. Generalized weakness--POA likely due to hypoxemia /COVID. and urinary tract infection. Endometrial mass-- Gynecology is consulted Could be polyp vs fibroid vs pre-malignancy vs malignancy Discussed with patient and nursing staff Interval HPI-pt on 2l n/c o2 today on treatment for COVID, 2 more days LFTs reviewed--normal E. 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 no calf pain No focal motor neurological symptoms MEDICATIONS: Current Facility-Administered Medications Medication Dose Route Frequency NaCl 0.9% iv flush bag 20 mL INTRAVENOUS PRN sodium chloride 0.9 % (flush) 3-5 mL (BD POSIFLUSH) 3-5 mL INTRAVENOUS q 12 H acetaminophen 650 mg tab(s) (TYLENOL) 650 mg ORAL q 6 H PRN [id number]-whbqdcpdr-utcgf in D3 500 mg-5 mcg (200 unit) 1 tablet 1 tablet ORAL BID budesonide, enteric coated 6 mg cap(s) (ENTOCORT EC) 6 mg ORAL BEFORE BREAKFAST DAILY therapeutic multivitamin-minerals tablet (THERA-M PLUS) 1 tablet ORAL DAILY meloxicam 7.5 mg tab(s) (MOBIC) 7.5 mg ORAL DAILY aspirin, enteric coated 81 mg tab(s) 81 mg ORAL DAILY DULoxetine 30 mg cap(s) (CYMBALTA) 30 mg ORAL AT BEDTIME rosuvastatin 5 mg tab(s) (CRESTOR) 5 mg ORAL AT BEDTIME cefTRIAXone iv piggyback 1 g in dextrose (iso-osmotic) 50 mL (ROCEPHIN) 1 g INTRAVENOUS q [address] 40 mg tab(s) (PROTONIX) 40 mg ORAL DAILY (6 AM) remdesivir in NaCl 0.9% Vial-Mate/ADD-[place] 100 mg 275 mL 100 mg INTRAVENOUS q 24 HR dexAMETHasone 6 mg tab(s) (DECADRON) 6 mg ORAL DAILY WITH BREAKFAST melatonin 3 mg tab(s) 3 mg ORAL AT BEDTIME PRN OBJECTIVE PHYSICAL EXAM: BP 127/58 Pulse 62 Temp (Src) 98.4 (Oral) Resp 16 Ht 5' 4 (1.63m) Wt 172 lb 9.9 oz (78.3kg) SpO2 95% BMI 29.62 kg/(m2). O2 Therapy: Nasal Cannula, Liters: 2.00 Skin: No evident rash. Neck: Supple. Oropharynx clear. No evidence of thrush. No cervical lymphadenopathy. Chest: Decreased air entry, bilateral bases. Few rales heard. Cardiovascular: S1, S2 normal. No murmur, no gallop heard. Abdomen: Soft, nontender. No organomegaly. Bowel sounds present. Extremities: Trace edema is present. No joint effusions. Moving all 4 extremities. Diagnostic tests reviewed for today's visit: Most recent labs and compared Most recent micro/ ekg Most recent imaging and compared CBC, Coags, BMP, Mg, Phos Recent Labs 06/25/22 0757 06/24/22 0728 06/23/22 1804 06/23/22 0720 WBC -- -- -- 7.54 HB -- -- -- 12.0 HCT -- -- -- 35.9* PLT -- -- -- 162 NA 141 145* 140 141 K 3.8 3.9 3.9 3.3* CHLOR 107* 109* 104 106* CO2 24 21* 25 24 BUN 20 16 15 10 CREAT 0.69 0.76 0.86 0.80 GLUC 95 94 113* 101* CA 9.1 8.7 8.7 8.9 CRP 7.5 06/21/2022 Vivien Dietz MD 06/25/2022 5:35 PM Normal [facility] Comprehensive metabolic 2000 panelon 06-25-2022 Albumin [Mass/Vol] 3.3 g/dL Low 3.9-4.9 [facility] Comment on above: Order Comment: Speci men Type: BLOOD SPECIMEN Ordering Facility: [facility] Address: [address] [address] Performed By: #### 2 4323-8 #### [facility] CLIA [id number] [address] [place] [address] [place] ALP [Catalytic activity/Vol] 70 U/L Normal 34-123 [facility] Comment on above: Order Comment: Speci men Type: BLOOD SPECIMEN Ordering Facility: [facility] Address: [address] [address] Performed By: #### 2 4323-8 #### [facility] CLIA [id number] [address] [place] [address] [place] ALT [Catalytic activity/Vol] 22 U/L Normal 7-38 [facility] Comment on above: Order Comment: Speci men Type: BLOOD SPECIMEN Ordering Facility: [facility] Address: [address] [address] Performed By: #### 2 4323-8 #### [facility] CLIA [id number] [address] [place] [address] [place] Anion gap [Moles/Vol] 10 mmol/L Normal 9-18 [facility] Comment on above: Order Comment: Speci men Type: BLOOD SPECIMEN Ordering Facility: [facility] Address: [address] [address] Performed By: #### 2 4323-8 #### [facility] CLIA [id number] [place] [address] [place] AST [Catalytic activity/Vol] 23 U/L Normal 13-35 [facility] Comment on above: Order Comment: Speci men Type: BLOOD SPECIMEN Ordering Facility: [facility] Address: [address] [place] [address] Performed By: #### 2 4323-8 #### [facility] CLIA [id number] [address] [place] [address] [place] Bilirubin [Mass/Vol] 0.2 mg/dL Normal 0.2-1.3 [facility] Comment on above: Order Comment: Speci men Type: BLOOD SPECIMEN Ordering Facility: [facility] Address: [address] [place] [address] Performed By: #### 2 4323-8 #### [facility] CLIA [id number] [address] [place] [address] [place] Calcium [Mass/Vol] 9.1 mg/dL Normal 8.5-10.2 [facility] Comment on above: Order Comment: Speci men Type: BLOOD SPECIMEN Ordering Facility: [facility] Address: [address] [place] [address] Performed By: #### 2 4323-8 #### [facility] CLIA [id number] [address] [place] [address] [place] Chloride [Moles/Vol] 107 mmol/L High 97-105 [facility] Comment on above: Order Comment: Speci men Type: BLOOD SPECIMEN Ordering Facility: [facility] Address: [address] [place] [address] Performed By: #### 2 4323-8 #### [facility] CLIA [id number] [address] [place] [address] [place] CO2 [Moles/Vol] 24 mmol/L Normal 22-30 [facility] Comment on above: Order Comment: Speci men Type: BLOOD SPECIMEN Ordering Facility: [facility] Address: [address] [place] [address] Performed By: #### 2 4323-8 #### [facility] CLIA [id number] [address] [place] [address] [place] Creatinine [Mass/Vol] 0.69 mg/dL Normal 0.58-0.96 [facility] Comment on above: Order Comment: Fredy dowd Type: BLOOD SPECIMEN Ordering Facility: [facility] Address: [address] [id number] Performed By: #### 2 4323-8 #### [facility] CLIA [id number] [address] [place] [address] [place] ESTIMATED GLOMERULAR FILTRATION RATE 89 mL/min/1.73m??? Normal >=60 [facility] Comment on above: Order Comment: Fredy dowd Type: BLOOD SPECIMEN Ordering Facility: [facility] Address: [address] [place] [address] Result Comment: Anna mated Glomerular Filtration Rate (eGFR) is calculated using the 2020 CKD-EPI creatinine equation. This equation utilizes serum creatinine, sex, and age as parameters. The creatinine assay has traceable calibration to isotope dilution-mass spectrometry. Refer to KDIGO guidelines for clinical interpretation. In patients with unstable renal function, e.g. those with acute kidney injury, the eGFR may not accurately reflect actual GFR. Performed By: #### 2 4323-8 #### [facility] CLIA [id number] [place] [address] [place] Glucose [Mass/Vol] 95 mg/dL Normal 74-99 [facility] Comment on above: Order Comment: Fredy dowd Type: BLOOD SPECIMEN Ordering Facility: [facility] Address: [address] [place] [address] Result Comment: The [place] [employer] (ADA) provides guidance for cutoff values for fasting glucose and random glucose. The ADA defines fasting as no caloric intake for at least 8 hours. Fasting plasma glucose results between 100 to 125 mg/dL indicate increased risk for diabetes (prediabetes). Fasting plasma glucose results greater than or equal to 126 mg/dL meet the criteria for diagnosis of diabetes. In the absence of unequivocal hyperglycemia, results should be confirmed by repeat testing. In a patient with classic symptoms of hyperglycemia or hyperglycemic crisis, random plasma glucose results greater than or equal to 200 mg/dL meet the criteria for diagnosis of diabetes. Reference: Standards of Medical Care in Diabetes 2016, [place] [employer]. Diabetes Care. 2016.39(Suppl 1). Performed By: #### 2 4323-8 #### [facility] CLIA [id number] [address] [place] [address] [place] Potassium [Moles/Vol] 3.8 mmol/L Normal 3.7-5.1 [facility] Comment on above: Order Comment: Speci men Type: BLOOD SPECIMEN Ordering Facility: [facility] Address: [address] [address] Performed By: #### 2 4323-8 #### [facility] CLIA [id number] [address] [place] [address] [place] Protein [Mass/Vol] 6.2 g/dL Low 6.3-8.0 [facility] Comment on above: Order Comment: Speci men Type: BLOOD SPECIMEN Ordering Facility: [facility] Address: [address] [place] [address] Performed By: #### 2 4323-8 #### [facility] CLIA [id number] [address] [place] [address] [place] Sodium [Moles/Vol] 141 mmol/L Normal 136-144 [facility] Comment on above: Order Comment: Speci men Type: BLOOD SPECIMEN Ordering Facility: [facility] Address: [address] [place] [address] Performed By: #### 2 4323-8 #### [facility] CLIA [id number] [address] [place] [address] [place] Urea nitrogen [Mass/Vol] 20 mg/dL Normal 7-21 [facility] Comment on above: Order Comment: Speci men Type: BLOOD SPECIMEN Ordering Facility: [facility] Address: [address] [place] [address] Performed By: #### 2 4323-8 #### [facility] CLIA [id number] [address] [place] [address] [place] NURSING PROGon 06-25-2022 NURSING PROG HNO ID: [id number] Author: Brittani Tavera, RN Service: Nursing Author Type: Registered Nurse Type: Nursing Progress Note Filed: 06/25/2022 11:59 AM Note Text: Daily Nursing Note: Pt AANDOx3 today. Denies pain. Tolerating regular diet, no changes in speech/swallowing. Tele running SR, VSS. Up with assist x 1 and walker, gait weak. PERRLA. No neurological changes noted. Lungs diminished throughout, sats WNL on RA, desats easily with ambulation, on cont pulse ox. Plan today: damon out this AM, voiding trail today, pt urinating small amounts, post void residual 350cc, will follow uro instructions, remdesivir, decadron, RT following, dc planning. Will CTM. [facility] THERAPY NTon 06-25-2022 THERAPY NT HNO ID: [id number] Author: Sera Thayer, OTR/L Service: Occupational Therapy Author Type: Occupational Therapist Type: Therapy (PT/OT/Speech/Resp) Filed: 06/25/2022 9:53 AM Note Text: Occupational Therapy Evaluation SERVICE DATE: 06/25/2022 SERVICE TIME: 855 to 918 ROOM: [place] [address] Recommended Discharge Disposition: Home OT Anticipated Discharge Needs: Supervision at Home Supervision at Home due to: Decreased safety awareness OT 6 Clicks Score: 21 Precautions/Activity Restrictions: Fall Risk;Lines/Tubes/Drains Isolation Type: Contact AND Droplet Precautions-Plus Eyewear Current Hospital Course: COVID Reason for Hospital Admission: weakness, fall Relevant Past Medical History: NPH, falls, arthritis, back surgery, melanoma, R RTC tear Response to Therapy Interventions: Good participation in activities Continue skilled needs due to: Functional impairment, Safety concerns Occupational Therapy Problem List: Safety Deficits;Impaired Self Care;Decreased Activity Tolerance;Functional Mobility Impairment;Balance Impaired Cognition/Communication Deficits Responsiveness: Alert Treatment Interventions: Education;Self Care / Home Management;Functional Mobility Training Plan for next visit: Chair/commode transfer training, Dressing training, Standing balance, Standing tolerance Home Environment Patient Lives With: Spouse Assistance Available: 24-Hour Entry To Home: Stairs;Without Rail Number Of Stairs Into Home: 2 Number Of Stairs To Bed/Bath: 12 Stairs to Bed/Bath with: Unilateral Rail Tub/Shower Type: Walk in shower with grab bars and a seat Laundry: Spouse can perform Equipment Owned: Cane;Pulse Ox;Wheeled Walker Prior Functional Level: Within Functional Limits;History of Falls Prior Functional Level Comments: Pt reports amb with walking stick. Ind ADLs. able to assist with IADLs Occupational Factors Life Roles: Spouse/Significant Other;Parent Identified Strengths: Good Support System Patient Report: Pleasant and agreeable to session CURRENT FUNCTIONAL STATUS: Most recent performance Current Activities of Daily Living Assist Level Additional Information Feeding Modified Independent Grooming Stand By Assistance Bathing Upper Body Stand By Assistance Bathing Lower Body Minimal Assistance Dressing Upper Body Stand By Assistance Dressing Lower Body Minimal Assistance Toileting Contact Guard Assistance Instrumental Activities of Daily Living Assist Level Additional Information Meal/Beverage Prep Cleaning Laundry Medication Management with Strategies Functional Mobility Assist Level Additional Information Rolling Supine to Sit Supervision Sit to Supine Scooting Sit to Stand Minimal Assistance;Additional Information retropulsive Stand to Sit Minimal Assistance Bed to Chair Toilet/Commode Minimal Assistance Shower Functional Mobility Minimal Assistance Wheeled Walker Blank becker indicate activity not attempted Learning/Educational Needs: Discharge Plan;Disease Process;Equipment;Famil y Education/Training;Func tional Activities/Mobility;Jovan n of Care;Rehabilitation Techniques and Procedures;Respiratory Function;Safety;Self Care Goals for Plan of Care: Patient/Caregiver Goals: Improve physical, mental and/or social well-being;Reduce ADL/IADL barriers Goals: Patient will demonstrate progress with self-care, cognitive and/or coping needs identified to allow safe discharge to home with available support and/or physical assistance. Rehab Potential: Good Patient will be discontinued from Occupational Therapy when no further skilled needs are identified in this setting. PLAN: OT Frequency: 3 times per week Plan of Care developed with: Patient TREATMENT INTERVENTIONS: Therapy Diagnosis: Reduced mobility-other;Decrease d activities of daily living (ADL);Muscle Weakness (generalized);Unsteadin ess on feet;Difficulty walking-musculoskeletal Interventions Provided: Evaluation;Self Usp Management (18934) $ Evaluation-Low (88648) Billed Units: 1 unit Self Usp Management (86354) Treatment Minutes: 8 $ Self Usp Management (99420) Billed Units: 1 unit Training AND education provided in: Assistive device use, Benefits of in-hospital mobility, Disease specific education, Functional mobility involving ADLs, Grooming tasks, Lower extremity dressing, Role of Occupational Therapy, Standing balance to improve independence with ADLs/self-care, Toileting , Transfer - Sit to stand The following therapeutic skills were used: Activity dosing, Cues for sequencing/proper technique for activity, Cuing tactile, Cuing verbal, Cuing visual, Physical assist, Therapeutic use of self Timed Code Treatment (minutes): 8 Skilled Treatment Time (minutes): 23 Please see discipline specific clinical documentation flowsheet for complete details for this therapy evaluation/treatment. SIGNATURE: Sera Thayer, OTR/L PATIENT NAME: T (more content not included)... [facility] ALLIED HEALTHon 06-24-2022 ALLIED [facility] HNO ID: [id number] Author: Ellen Cleaning RN Service: Infection Prevention Author Type: Registered Nurse Type: Allied Health Filed: 06/24/2022 7:53 AM Note Text: ISOLATION NOTE Admission Date: 06/23/2022 Type of Isolation Recommended: Contact and Droplet Precautions Plus Eyewear (Cranberry Isolation Sign) Indication: COVID-19 Maintain Contact/Droplet and Eyewear isolation signage Remain in private room or cohort when deemed appropriate Don an N95 (or PAPR) prior to entering the patient room Avoid entering room during aerosol generating procedure when possible Restrict room access to essential personnel only Contact Infection Prevention prior to discontinuing precautions when criteria are met Limit transport and movement of the patient to medically necessary purposes Date Isolation Initiated: 06/23/22 Anticipated Duration of Isolation: In consultation with Infection Prevention Type and Date of Positive Test(s): 06/20/22 PCR SIGNATURE: Ellen Cleaning RN PATIENT NAME: Christian Suggs DATE: June 24, 2022 TIME: 7:53 AM PAGER/CONTACT #: [phone] Infection Prevention after hours/weekend pager: [phone] [facility] CK TOTAL AND CK-MBon 022 CK [Catalytic activity/Vol] 60 U/L Normal 42-196 [facility] Comment on above: Order Comment: Speci men Type: BLOOD SPECIMENOrdering Facility: [facility] Address: [address] [place], [place] [address] Performed By: #### 2 4331-1, CKCKMB, 63311-6, JOSSIE ####[facility]ORY[facility] [id number] [place] [address] [place] CK.MB [Mass/Vol] ng/mL Normal <4.4 [facility] Comment on above: Order Comment: Speci men Type: BLOOD SPECIMENOrdering Facility: [facility] Address: [address] [place] [address] Performed By: #### 2 4331-1, CKCKMB, 65799-1, JOSSIE ####[facility] [id number] [address] CK.MB [Ratio] [facility] Comment on above: Order Comment: Speci men Type: BLOOD SPECIMENOrdering Facility: [facility] Address: [address] [address] Result Comment: CK M B % not reported with CK <100 U/L. Performed By: #### 2 4331-1, CKCKMB, 45844-6, JOSSIE ####[facility] [id number] [place] [id number] [facility] CONSULTon 06-24-2022 CONSULT HNO ID: [id number] Author: Omayra Pearce MD Service: Urology Author Type: Physician Type: Consults Filed: 06/24/2022 10:51 PM Note Text: Urology Consultation Patient: Christian Suggs Date of : 1945 CHIEF COMPLAINT: Urinary retention HISTORY OF PRESENT ILLNESS: The patient is a 76 year old female Admitted yesterday following a fall. Patient fell when getting up to go to the bathroom. On presentation emergency department, the patient reported headache and neck pain. She currently denies any neck pain but does report left hip pain. Hip pain is intermittent and mild. Urology is consulted for urinary retention. Patient initially had a fall on July 21 and presented to the hospital. A Damon catheter was placed at that time for urinary retention. The volume for which the catheter was placed was unknown. The patient reported severe suprapubic discomfort and urge to urinate prior to catheter placement but was unable to void. She does report at least 3 to 4-month history of worsening difficulty urinating including weak stream, incomplete emptying, and straining on urination. She has never seen a urologist before. She denies any dysuria or hematuria. She does have a history of extensive spine surgery. She does report constipation. Patient's old records, notes and chart reviewed and summarized above. Past Medical History: PAST MEDICAL HISTORY Diagnosis Date Allergic rhinitis Arthritis Back C. difficile enteritis History of back surgery 2011 Melanoma (HCC) right thigh Rotator cuff tear arthropathy of right shoulder 2012 Past Surgical History: PAST SURGICAL HISTORY Procedure Laterality Date ARTHRP KNE CONDYLEANDPLATU MEDIALANDLAT COMPARTMENTS Right 10/2014 CARPAL TUNNEL 2009 bilateral COLONOSCOPY FLX DX W/COLLJ SPEC WHEN PFRMD 02-02-16 JOINT REPLACEMENT HX ORTHOPEDICS SURGERY HX PAST SURGICAL HISTORY OF 1999 bladder repair PAST SURGICAL HISTORY OF 2007 melanoma removal Medications: Current Facility-Administered Medications Medication Dose Route Frequency Provider Last Rate Last Admin hyoscyamine 0.125 mg oral drops (LEVSIN) 0.125 mg ORAL q 6 H PRN Massiel Stallings, PLUMBER GASFITTER.BRIM SHAPER NaCl 0.9% iv flush bag 20 mL INTRAVENOUS PRN Dipika Frederick, PLUMBER GASFITTER.BRIM SHAPER sodium chloride 0.9 % (flush) 3-5 mL (BD POSIFLUSH) 3-5 mL INTRAVENOUS q 12 H Dipika Frederick, PLUMBER GASFITTER.BRIM SHAPER 5 mL at 06/24/222113 acetaminophen 650 mg tab(s) (TYLENOL) 650 mg ORAL q 6 H PRN Dipika Boonel, PLUMBER GASFITTER.BRIM SHAPER 650 mg at 06/24/222109 oudafaf-wciscqjna-hkgka in D3 500 mg-5 mcg (200 unit) 1 tablet 1 tablet ORAL BID Dipika Frederick, PLUMBER GASFITTER.BRIM SHAPER 1 tablet at 06/24/222044 budesonide, enteric coated 6 mg cap(s) (ENTOCORT EC) 6 mg ORAL BEFORE BREAKFAST DAILY Dipika Melyl, PLUMBER GASFITTER.BRIM SHAPER 6 mg at 06/24/22900 therapeutic multivitamin-minerals tablet (THERA-M PLUS) 1 tablet ORAL DAILY Dipika Melyl, PLUMBER GASFITTER.BRIM SHAPER 1 tablet at 06/24/22900 meloxicam 7.5 mg tab(s) (MOBIC) 7.5 mg ORAL DAILY Dipika Melyl, PLUMBER GASFITTER.BRIM SHAPER 7.5 mg at 06/24/22900 aspirin, enteric coated 81 mg tab(s) 81 mg ORAL DAILY Dipikacaitlin Frederick, PLUMBER GASFITTER.BRIM SHAPER 81 mg at 06/24/22 09 DULoxetine 30 mg cap(s) (CYMBALTA) 30 mg ORAL AT BEDTIME Dipika Frederick APRN.BRIM SHAPER 30 mg at 06/24/222044 rosuvastatin 5 mg tab(s) (CRESTOR) 5 mg ORAL AT BEDTIME Dipika Frederick APRN.BRIM SHAPER 5 mg at 06/24/222044 cefTRIAXone iv piggyback 1 g in dextrose (iso-osmotic) 50 mL (ROCEPHIN) 1 g INTRAVENOUS q 24 H Dipika Frederick APRN.BRIM SHAPER Stopped at 06/24/[address] 40 mg tab(s) (PROTONIX) 40 mg ORAL DAILY (6 AM) Dipika Frederick APRN.BRIM SHAPER 40 mg at 06/24/2246 remdesivir in NaCl 0.9% Vial-Mate/ADD-[place] 100 mg 275 mL 100 mg INTRAVENOUS q 24 HR Vivien Dietz MD Stopped at 06/24/222034 dexAMETHasone 6 mg tab(s) (DECADRON) 6 mg ORAL DAILY WITH BREAKFAST Vivien Dietz MD 6 mg at 06/24/22900 melatonin 3 mg tab(s) 3 mg ORAL AT BEDTIME PRN Cb Singh APRN.BRIM SHAPER 3 mg at 06/24/222109 Allergies: ALLERGIES Allergen Reactions Mesalamine Myalgia Flagyl [Nitroimidaz* Other: See Comments metal mouth Hydrocodone Bitartr* GI Upset Oxycodone GI Upset Scopolamine Other: See Comments Social History: Social History Tobacco Use Smoking status: Never Smokeless tobacco: Never Vaping Use Vaping Use: Never used Substance Use Topics Alcohol use: No Drug use: No Family History: FAMILY HISTORY Problem Relation Age of Onset Heart Father late in life Breast Cancer Maternal Aunt Diabetes Other none Colon Cancer Other none Coronary Artery Disease Other none REVIEW OF SYSTEMS: A comprehensive 14 point review of systems was obtained. Constitutional: + fatigue Eyes: No blurry vision Ears, nose, mouth, throat, face: No ringing in the ears; no facial droop Respiratory: No shortness of breath Cardiovascular: No palpitations Gastrointestinal: No diarrhea Genitourinary: See HPI Integument/Skin: No rashes Sotero (more content not included)... [facility] CONSULT HNO ID: [id number] Author: Shamika Ortega MD Service: Gynecology Author Type: Resident Type: Consults Filed: 06/24/2022 10:40 AM Note Text: Attestation signed by Layla Germain MD at 06/24/2022 12:52 PM Attending Note I evaluated the patient and personally participated in the reynolds components. I agree with the resident's findings and plan as documented and have discussed the case and management of the patient's care with the resident. Endometrial mass Could be polyp vs fibroid vs pre-malignancy vs malignancy Cannot find any old imaging of pelvis, patient reports she wasn't told in the past she has fibroids Recommend mobile mechanic ultrasound for further characterization and potentially biopsy if indicated. But this can be done as outpatient. There is INFORMATION SYSTEMS SECURITY SPECIALIST in [place], near patient's home - will put referral in discharge paperwork Pap testing no longer indicated. Will sign off at this time, but please page INFORMATION SYSTEMS SECURITY SPECIALIST if further questions arise. Signature: Layla Germain MD Date: 06/24/2022 Time: 12:43 PM GYNECOLOGY INITIAL CONSULTATION SERVICE DATE: 06/24/2022 SERVICE TIME: 10:34 AM CONSULTING PHYSICIAN: Leonela Stein MD REASON FOR CONSULT: endometrial mass noted incidentally on CT A/P Subjective HISTORY OF THE PRESENT ILLNESS This 76 year old admitted with generalized weakness, fall, and COVID infection. Gynecology consulted for endometrial mass noted incidentally on CT abd/pelvis. Patient went through menopause around age 48. Denies any PMB. No bleeding currently. Denies h/o fibroids or endometrial polyps. Has not seen a assistant store manager operations in years. Does not recall last Pap, but per chart review 2001 NILM. HISTORY: PAST MEDICAL HISTORY Diagnosis Date Allergic rhinitis Arthritis Back C. difficile enteritis History of back surgery 2011 Melanoma (HCC) right thigh Rotator cuff tear arthropathy of right shoulder 2012 PAST SURGICAL HISTORY Procedure Laterality Date ARTHRP KNE CONDYLEANDPLATU MEDIALANDLAT COMPARTMENTS Right 10/2014 CARPAL TUNNEL 2009 bilateral COLONOSCOPY FLX DX W/COLLJ SPEC WHEN PFRMD 02-02-16 JOINT REPLACEMENT HX ORTHOPEDICS SURGERY HX PAST SURGICAL HISTORY OF 1999 bladder repair PAST SURGICAL HISTORY OF 2007 melanoma removal FAMILY HISTORY Problem Relation Age of Onset Heart Father late in life Breast Cancer Maternal Aunt Diabetes Other none Colon Cancer Other none Coronary Artery Disease Other none Social History Tobacco Use Smoking status: Never Smokeless tobacco: Never Vaping Use Vaping Use: Never used Substance Use Topics Alcohol use: No Drug use: No OB History T0 L4 SAB0 IAB0 Ectopic0 Multiple0 Live Births0 ALLERGIES Allergen Reactions Mesalamine Myalgia Flagyl [Nitroimidaz* Other: See Comments metal mouth Hydrocodone Bitartr* GI Upset Oxycodone GI Upset Scopolamine Other: See Comments No current facility-administered medications on file prior to encounter. Current Outpatient Medications on File Prior to Encounter Medication Sig omeprazole (PRILOSEC) 40 mg capsule Take 40 mg by mouth once daily. budesonide, enteric coated (ENTOCORT EC) 3 mg 24 hr capsule Take 6 mg by mouth daily before breakfast. meloxicam (MOBIC) 7.5 mg tablet Take 1 tablet by mouth once daily. Take this directly following a meal DULoxetine (CYMBALTA) 30 mg capsule Take 1 capsule by mouth daily at bedtime. aspirin, enteric coated (ASPIRIN, ENTERIC COATED) 81 mg EC tablet Take 81 mg by mouth once daily. multivitamin ORAL tablet Take 1 tablet by mouth once daily. Calcium-Vitamin D3-Vitamin K 500-100-40 mg-unit-mcg chew Take 1 tablet by mouth. CHEW TAB BEFORE SWALLOWING twice daily. guaiFENesin (MUCINEX) 600 mg 12 hr tablet Take 1 tablet by mouth every 12 hours as needed (cough). ROS: The remainder of the review of systems is negative. Objective PHYSICAL EXAM: Blood pressure 117/54, pulse 74, temperature 36.7 ?C (98.1 ?F), temperature source Oral, resp. rate 18, height 162.6 cm (5' 4), weight 79.8 kg (175 lb 14.8 oz), SpO2 93 %. GENERAL: In no apparent distress. CARDIOVASCULAR: RR PULMONARY: normal respiratory effort on RA ABDOMEN: soft, nontender, nondistended CT ABD/PEL 06/22 1. 2.0 x 1.3 x 1.9 cm hypodense mass in the region of the endometrial canal. This could represent blood clot, polyp or other mass. Malignancy is not excluded. No pelvic ascites. No lymphadenopathy. Pelvic ultrasound is recommended for initial further evaluation. DATA: Diagnostic tests reviewed for today's visit: Most recent labs and imaging results. Impression/Recommendati ons This 76 year old admitted with generalized weakness, fall, and COVID infection. Gynecology consulted for endometrial mass noted incidentally on CT abd/pelvis. Endomet (more content not included)... [facility] CONSULT HNO ID: [id number] Author: Anup Gordon MD Service: Cardiovascular Medicine Author Type: Physician Type: Consults Filed: 06/24/2022 12:50 PM Note Text: CONSULT: CARDIOLOGY SERVICE SERVICE DATE: June 24, 2022 SERVICE TIME: 9:48 AM CONSULTING PHYSICIAN: Dr. Gordon PCP: Lilo Grullon MD ATTENDING: Leonela Stein MD REASON FOR CONSULT: Cardiology Evaluation ASSESSMENT AND PLAN: Principal Problem: Mechanical fall Generalized weakness. COVID infection. Hypoxemia. -ID following. Received remdesivir, decadron UTI. Cultures pending. Elevated HST. . -EKG without acute ischemic changes. Endometrial mass. consult pending. Plan: Minimal HST elevation in the above setting. No angina. No prior CAD or cardiac testing. Low functional capacity without recent angina. Will add on cardiac enzymes and FLP. CHIEF COMPLAINT: s/p fall Christian Suggs is a 76 year old female with chronic back pain, prior lumbar fusion, osteoporosis, munir pressure hydrocephalus, GERD, urinary retention, right thigh melanoma s/p excision 2008. She presented initially to [facility] on 06/20 with generalized weakness, fever, cough, difficulty ambulating, falls. She tested COVID positive. CXR was negative. No related hypoxia. She received hydration and was monitored overnight. Discharged 06/21 with a damon due to retention. She returned to ED 06/22 due to a fall at home. She denies related syncope. C/o headache, neck pain and weakness. Hypoxia noted on arrival saturating 86%. Initial BP 124/82. EKG NSR rate 90, no acute ischemic ST-T changes. CT brain with no acute intracranial abnormality, CT abdomen pelvis revealed 2.0 x 1.3 x 1.9 cm hypodense mass in the region of the endometrial canal. Chest x-ray without any acute abnormality. Labs: HST 15, 14, 14. Electrolytes stable. No anemia or leukocytosis. UA with few bacteria and 3+ leuk esterase. She was started on Rocephin. Transferred to [facility]. She denies recent chest pain or dyspnea. She tells me she has been feeling ill since [facility]. She thought possibly she had the flu. Patient states for the last 6 months she has been ambulating with a cane. Having issues with her back which is being looked at. Prior Cardiac Workup: none MEDICATIONS: Current Facility-Administered Medications Medication Dose Route Frequency NaCl 0.9% iv flush bag 20 mL INTRAVENOUS PRN sodium chloride 0.9 % (flush) 3-5 mL (BD POSIFLUSH) 3-5 mL INTRAVENOUS q 12 H acetaminophen 650 mg tab(s) (TYLENOL) 650 mg ORAL q 6 H PRN cdiygfe-cgtduwczk-oowwp in D3 500 mg-5 mcg (200 unit) 1 tablet 1 tablet ORAL BID budesonide, enteric coated 6 mg cap(s) (ENTOCORT EC) 6 mg ORAL BEFORE BREAKFAST DAILY therapeutic multivitamin-minerals tablet (THERA-M PLUS) 1 tablet ORAL DAILY meloxicam 7.5 mg tab(s) (MOBIC) 7.5 mg ORAL DAILY aspirin, enteric coated 81 mg tab(s) 81 mg ORAL DAILY DULoxetine 30 mg cap(s) (CYMBALTA) 30 mg ORAL AT BEDTIME rosuvastatin 5 mg tab(s) (CRESTOR) 5 mg ORAL AT BEDTIME cefTRIAXone iv piggyback 1 g in dextrose (iso-osmotic) 50 mL (ROCEPHIN) 1 g INTRAVENOUS q [address] 40 mg tab(s) (PROTONIX) 40 mg ORAL DAILY (6 AM) remdesivir in NaCl 0.9% Vial-Mate/ADD-[place] 100 mg 275 mL 100 mg INTRAVENOUS q 24 HR dexAMETHasone 6 mg tab(s) (DECADRON) 6 mg ORAL DAILY WITH BREAKFAST melatonin 3 mg tab(s) 3 mg ORAL AT BEDTIME PRN PAST MEDICAL HISTORY Diagnosis Date Allergic rhinitis Arthritis Back C. difficile enteritis History of back surgery 2011 Melanoma (HCC) right thigh Rotator cuff tear arthropathy of right shoulder 2012 PAST SURGICAL HISTORY Procedure Laterality Date ARTHRP KNE CONDYLEANDPLATU MEDIALANDLAT COMPARTMENTS Right 10/2014 CARPAL TUNNEL 2009 bilateral COLONOSCOPY FLX DX W/COLLJ SPEC WHEN PFRMD 02-02-16 JOINT REPLACEMENT HX ORTHOPEDICS SURGERY HX PAST SURGICAL HISTORY OF 1999 bladder repair PAST SURGICAL HISTORY OF 2007 melanoma removal Past Family History: Her father had some heart problems at a later age, she is not sure of details. He lived to age 95. She denies CAD in her mother or siblings. Social History Tobacco Use Smoking status: Never Smokeless tobacco: Never Vaping Use Vaping Use: Never used Substance Use Topics Alcohol use: No Drug use: No ALLERGIES Allergen Reactions Mesalamine Myalgia Flagyl [Nitroimidaz* Other: See Comments metal mouth Hydrocodone Bitartr* GI Upset Oxycodone GI Upset Scopolamine Other: See Comments COMPLETE REVIEW OF SYSTEMS: The following systems were reviewed with the patient, and are unremarkable other than as described below. GENERAL: Fatigue HEENT: No recent change in vision or hearing. GI: No recent nausea, vomiting or diarrhea. : No recent hematuria or dysuria. SKIN: No recent itching or eruption. PSYCH: No recent active anxiety or depression. HEMATOLOGY/ONCOLOGY: No recent diagnosis of bleed (more content not included)... [facility] CONSULT PROGon 06-24-2022 CONSULT PROG HNO ID: [id number] Author: Vivien Dietz MD Service: Infectious Disease Author Type: Physician Type: Consult Progress Note Filed: 06/25/2022 2:26 AM Note Text: INFECTIOUS DISEASE CONSULT PROGRESS NOTES PATIENT NAME: Christian Suggs SERVICE DATE: 06/24/2022 ASSESSMENT AND PLAN: mechanical fall ---at home prior to hospitalization. Skeletal survey negative for any fractures. COVID positive diagnosed on 06/20. documented hypoxemia of 85% on room air. IV remdesivir and p.o. Decadron confusional state. E. COLI Urinary tract infection. --POA IV ceftriaxone. --P SENS . Generalized weakness--POA likely due to hypoxemia /COVID. and urinary tract infection. Endometrial mass-- Gynecology is consulted Could be polyp vs fibroid vs pre-malignancy vs malignancy Discussed with patient and nursing staff Interval HPI-on treatment for COVID LFTs reviewed--normal E. coli in the urine. sensitivities are pending no calf pain No focal motor neurological symptoms MEDICATIONS: Current Facility-Administered Medications Medication Dose Route Frequency NaCl 0.9% iv flush bag 20 mL INTRAVENOUS PRN sodium chloride 0.9 % (flush) 3-5 mL (BD POSIFLUSH) 3-5 mL INTRAVENOUS q 12 H acetaminophen 650 mg tab(s) (TYLENOL) 650 mg ORAL q 6 H PRN rsujjsl-cclsmowjv-qhjat in D3 500 mg-5 mcg (200 unit) 1 tablet 1 tablet ORAL BID budesonide, enteric coated 6 mg cap(s) (ENTOCORT EC) 6 mg ORAL BEFORE BREAKFAST DAILY therapeutic multivitamin-minerals tablet (THERA-M PLUS) 1 tablet ORAL DAILY meloxicam 7.5 mg tab(s) (MOBIC) 7.5 mg ORAL DAILY aspirin, enteric coated 81 mg tab(s) 81 mg ORAL DAILY DULoxetine 30 mg cap(s) (CYMBALTA) 30 mg ORAL AT BEDTIME rosuvastatin 5 mg tab(s) (CRESTOR) 5 mg ORAL AT BEDTIME cefTRIAXone iv piggyback 1 g in dextrose (iso-osmotic) 50 mL (ROCEPHIN) 1 g INTRAVENOUS q [address] 40 mg tab(s) (PROTONIX) 40 mg ORAL DAILY (6 AM) remdesivir in NaCl 0.9% Vial-Mate/ADD-[place] 100 mg 275 mL 100 mg INTRAVENOUS q 24 HR dexAMETHasone 6 mg tab(s) (DECADRON) 6 mg ORAL DAILY WITH BREAKFAST melatonin 3 mg tab(s) 3 mg ORAL AT BEDTIME PRN hyoscyamine 0.125 mg oral drops (LEVSIN) 0.125 mg ORAL q 6 H PRN OBJECTIVE PHYSICAL EXAM: BP 120/70 Pulse 71 Temp (Src) 97.5 (Oral) Resp 16 Ht 5' 4 (1.63m) Wt 175 lb 14.8 oz (79.8kg) SpO2 92% BMI 30.18 kg/(m2). O2 Therapy: Room Air Skin: No evident rash. Neck: Supple. Oropharynx clear. No evidence of thrush. No cervical lymphadenopathy. Chest: Decreased air entry, bilateral bases. Few rales heard. Cardiovascular: S1, S2 normal. No murmur, no gallop heard. Abdomen: Soft, nontender. No organomegaly. Bowel sounds present. Extremities: Trace edema is present. No joint effusions. Moving all 4 extremities. Diagnostic tests reviewed for today's visit: Most recent labs and compared Most recent micro/ EKG Most recent imaging and compared CBC, Coags, BMP, Mg, Phos Recent Labs 06/24/22 0728 06/23/22 1804 06/23/22 0720 06/22/22 1725 WBC -- -- 7.54 10.38 HB -- -- 12.0 14.5 HCT -- -- 35.9* 43.8 PLT -- -- 162 160 NA 145* 140 141 136 K 3.9 3.9 3.3* 3.8 CHLOR 109* 104 106* 99 CO2 21* 25 24 25 BUN 16 15 10 9 CREAT 0.76 0.86 0.80 0.71 GLUC 94 113* 101* 114* CA 8.7 8.7 8.9 9.3 CRP 7.5 06/21/2022 Vivien Dietz MD 06/24/2022 7:38 PM Normal [facility] Comprehensive metabolic 2000 panelon 06-24-2022 Albumin [Mass/Vol] 3.3 g/dL Low 3.9-4.9 [facility] Comment on above: Order Comment: Speci men Type: BLOOD SPECIMENOrdering Facility: [facility] Address: [address] [place] [address] Performed By: #### 2 4331-1, CKCKMB, 99200-5, JOSSIE ####[place] [facility]ORYCLIA [id number] [place] [address] [place] ALP [Catalytic activity/Vol] 68 U/L Normal 34-123 [facility] Comment on above: Order Comment: Speci men Type: BLOOD SPECIMENOrdering Facility: [facility] Address: [address] Performed By: #### 2 4331-1, CKCKMB, 43229-8, JOSSIE ####[facility] LABORATORYCLIA [id number] [place] [address] [place] ALT [Catalytic activity/Vol] 19 U/L Normal 7-38 [facility] Comment on above: Order Comment: Speci men Type: BLOOD SPECIMENOrdering Facility: [facility] Address: [address] [place] [address] Performed By: #### 2 4331-1, CKCKMB, 82281-1, JOSSIE ####[facility] LABORATORYCLIA [id number] [place] [address] [place] Anion gap [Moles/Vol] 15 mmol/L Normal 9-18 [facility] Comment on above: Order Comment: Speci men Type: BLOOD SPECIMENOrdering Facility: [facility] Address: [address] [place] [place] [address] Performed By: #### 2 4331-1, CKCKMB, 67326-6, JOSSIE ####[facility] LABORATORYCLIA [id number] [address] [place] AST [Catalytic activity/Vol] 20 U/L Normal 13-35 [facility] Comment on above: Order Comment: Speci men Type: BLOOD SPECIMENOrdering Facility: [facility] Address: [address] [place] [place] [address] Performed By: #### 2 4331-1, CKCKMB, 68554-6, JOSSIE ####[facility] LABORATORYCLIA [id number] [place] [address] [place] Bilirubin [Mass/Vol] 0.2 mg/dL Normal 0.2-1.3 [facility] Comment on above: Order Comment: Speci men Type: BLOOD SPECIMENOrdering Facility: [facility] Address: [address] [place] [place] [address] Performed By: #### 2 4331-1, CKCKMB, 89855-1, JOSSIE ####[facility]ORYCLIA [id number] [place] [address] [place] Calcium [Mass/Vol] 8.7 mg/dL Normal 8.5-10.2 [facility] Comment on above: Order Comment: Speci men Type: BLOOD SPECIMENOrdering Facility: [facility] Address: [address] [place] [address] Performed By: #### 2 4331-1, CKCKMB, 78589-3, JOSSIE ####[facility] [facility]ORYCLIA [id number] [place] [address] [place] Chloride [Moles/Vol] 109 mmol/L High 97-105 [facility] Comment on above: Order Comment: Speci men Type: BLOOD SPECIMENOrdering Facility: [facility] Address: [address] [place] [address] Performed By: #### 2 4331-1, CKCKMB, 66933-5, JOSSIE ####[facility] [facility]ORYCLIA [id number] [place] [address] [place] CO2 [Moles/Vol] 21 mmol/L Low 22-30 [facility] Comment on above: Order Comment: Speci men Type: BLOOD SPECIMENOrdering Facility: [facility] Address: [address] [place] [address] Performed By: #### 2 4331-1, CKCKMB, 63937-7, JOSSIE ####[facility] [facility]ORYCLIA [id number] [place] [address] [place] Creatinine [Mass/Vol] 0.76 mg/dL Normal 0.58-0.96 [facility] Comment on above: Order Comment: Speci men Type: BLOOD SPECIMENOrdering Facility: [facility] Address: [address] [place] [address] Performed By: #### 2 4331-1, CKCKMB, 31657-4, JOSSIE ####[facility] [facility]ORYCLIA [id number] [place] [address] [place] ESTIMATED GLOMERULAR FILTRATION RATE 80 mL/min/1.73m??? Normal >=60 [facility] Comment on above: Order Comment: Speci men Type: BLOOD SPECIMENOrdering Facility: [facility] Address: [address] Result Comment: Anna mated Glomerular Filtration Rate (eGFR) is calculated using the 2020 CKD-EPI creatinine equation. This equation utilizes serum creatinine, sex, and age as parameters. The creatinine assay has traceable calibration to isotope dilution-mass spectrometry. Refer to KDIGO guidelines for clinical interpretation. In patients with unstable renal function, e.g. those with acute kidney injury, the eGFR may not accurately reflect actual GFR. Performed By: #### 2 4331-1, CKCKMB, 44887-3, JOSSIE ####[facility] LABORATORYCLIA [id number] [place] [id number] [place] Glucose [Mass/Vol] 94 mg/dL Normal 74-99 [facility] Comment on above: Order Comment: Fredy dowd Type: BLOOD SPECIMENOrdering Facility: [facility] Address: [address] [place] [address] Result Comment: The [place] [employer] (ADA) provides guidance for cutoff values for fasting glucose and random glucose. The ADA defines fasting as no caloric intake for at least 8 hours. Fasting plasma glucose results between 100 to 125 mg/dL indicate increased risk for diabetes (prediabetes). Fasting plasma glucose results greater than or equal to 126 mg/dL meet the criteria for diagnosis of diabetes. In the absence of unequivocal hyperglycemia, results should be confirmed by repeat testing. In a patient with classic symptoms of hyperglycemia or hyperglycemic crisis, random plasma glucose results greater than or equal to 200 mg/dL meet the criteria for diagnosis of diabetes. Reference: Standards of Medical Care in Diabetes 2016, [place] [employer]. Diabetes Care. 2016.39(Suppl 1). Performed By: #### 2 4331-1, CKCKMB, 81232-6, JOSSIE ####[facility] LABORATORYCLIA [id number] [place] [id number] [place] Potassium [Moles/Vol] 3.9 mmol/L Normal 3.7-5.1 [facility] Comment on above: Order Comment: Fredy [facility] Type: BLOOD SPECIMENOrdering Facility: [facility] Address: [address] [place] [place] [address] Performed By: #### 2 4331-1, CKCKMB, 29810-1, JOSSIE ####[place] [facility]ORYCLIA [id number] [place] [id number] [place] Protein [Mass/Vol] 6.0 g/dL Low 6.3-8.0 [facility] Comment on above: Order Comment: Speci men Type: BLOOD SPECIMENOrdering Facility: [facility] Address: [address] [place] [address] Performed By: #### 2 4331-1, CKCKMB, 94519-4, JOSSIE ####[place] [facility]ORYCLIA [id number] [place] [address] [place] Sodium [Moles/Vol] 145 mmol/L High 136-144 [facility] Comment on above: Order Comment: Speci men Type: BLOOD SPECIMENOrdering Facility: [facility] Address: [address] [place] [address] Performed By: #### 2 4331-1, CKCKMB, 29956-3, JOSSIE ####[facility] [facility]ORYCLIA [id number] [place] [address] [place] Urea nitrogen [Mass/Vol] 16 mg/dL Normal 7-21 [facility] Comment on above: Order Comment: Speci men Type: BLOOD SPECIMENOrdering Facility: [facility] Address: [address] [place] [address] Performed By: #### 2 4331-1, CKCKMB, 23578-6, JOSSIE ####[facility] LABORATORYCLIA [id number] [place] [address] [place] Lipid 1996 panelon 2 Cholesterol [Mass/Vol] 137 mg/dL Normal <200 [facility] Comment on above: Order Comment: Speci men Type: BLOOD SPECIMENOrdering Facility: [facility] Address: [address] [place] [address] Result Comment: <200 mg/dL, Desirable 200-239 mg/dL, Borderline high >239 mg/dL, High Performed By: #### 2 4331-1, CKCKMB, 66096-8, JOSSIE ####[facility] LABORATORYCLIA [id number] [place] [id number] [facility] Cholesterol in HDL [Mass/Vol] 38 mg/dL Low >39 [facility] Comment on above: Order Comment: Speci men Type: BLOOD SPECIMENOrdering Facility: [facility] Address: [address] [place] [place] [address] Result Comment: 40-5 9 mg/dL, Acceptable >59 mg/dL, High: Negative risk factor for coronary heart disease <40 mg/dL, Low: Positive risk factor for coronary heart disease Performed By: #### 2 4331-1, CKCKMB, 74781-1, JOSSIE ####[facility] LABORATORYCLIA [id number] [place] [id number] [facility] Cholesterol in LDL [Mass/Vol] 78 mg/dL Normal <100 [facility] Comment on above: Order Comment: Speci [facility] Type: BLOOD SPECIMENOrdering Facility: [facility] Address: [address] [place] [address] Result Comment: <100 mg/dL, Optimal 100-129 mg/dL, Near optimal/above optimal 130-159 mg/dL, Borderline high 160-189 mg/dL, High >189 mg/dL, Very high Secondary prevention optimal LDL Cholesterol levels are recommended to be < 70 mg/dL Performed By: #### 2 4331-1, CKCKMB, 92953-8, JOSSIE ####[facility] [facility]ORYCLIA [id number] [place] [id number] [facility] Cholesterol in LDL/Cholesterol in HDL [Mass ratio] 2.05 {ratio} Normal <2.54 [facility] Comment on above: Order Comment: Speci [facility] Type: BLOOD SPECIMENOrdering Facility: [facility] Address: [address] [place] [address] Result Comment: Refe rogerce: 1. National Cholesterol Education Program ATP III Guideline At-A-Glance Quick Desk Reference: National Heart, Lung, and Blood [place]. National Institutes of Health. 2001: NIH Publication No. 01-3305. 2. An International Atherosclerosis Society position paper: global recommendations for the management of dyslipidemia: executive summary, Atherosclerosis. 2014: 232(2):410-413. Performed By: #### 2 4331-1, CKCKMB, 53089-1, JOSSIE ####[facility]ATORYCLIA [id number] [place] [id number] [place] Cholesterol in VLDL [Mass/Vol] 21 mg/dL Normal <30 [facility] Comment on above: Order Comment: Speci men Type: BLOOD SPECIMENOrdering Facility: [facility] Address: [address] [place] [place] [address] Performed By: #### 2 4331-1, CKCKMB, 35458-8, JOSSIE ####[facility]ATORYCLIA [id number] [address] [place] Cholesterol non HDL [Mass/Vol] 99 mg/dL Normal <130 [facility] Comment on above: Order Comment: Speci men Type: BLOOD SPECIMENOrdering Facility: [facility] Address: [address] [place] [address] Result Comment: <130 mg/dL, Optimal 130-159 mg/dL, Near optimal/above optimal 160-189 mg/dL, Borderline high 190-219 mg/dL, High >219 mg/dL, Very high Secondary prevention optimal non HDL Cholesterol levels are recommended to be <100 mg/dL Performed By: #### 2 4331-1, CKCKMB, 64134-8, JOSSIE ####[facility]ATORYCLIA [id number] [place] [address] [place] Cholesterol.total/Choles terol in HDL [Mass ratio] 3.61 {ratio} Normal <5.10 [facility] Comment on above: Order Comment: Speci men Type: BLOOD SPECIMENOrdering Facility: [facility] Address: [address] [place] [place] [address] Performed By: #### 2 4331-1, CKCKMB, 35440-4, JOSSIE ####[facility]ATORYCLIA [id number] [place] [address] [place] FASTING TIME Normal [facility] Comment on above: Order Comment: Speci men Type: BLOOD SPECIMENOrdering Facility: [facility] Address: [address] [place] [place] [id number] Result Comment: Unkn own Performed By: #### 2 4331-1, CKCKMB, 20376-8, JOSSIE ####[facility]ATORYCLIA [id number] [address] Triglyceride [Mass/Vol] 107 mg/dL Normal <150 [facility] Comment on above: Order Comment: Speci men Type: BLOOD SPECIMENOrdering Facility: [facility] Address: [address] [place] [id number] Result Comment: <150 mg/dL, Normal 150-199 mg/dL, Borderline high 200-499 mg/dL, High >499 mg/dL, Very high Performed By: #### 2 4331-1, CKCKMB, 47485-4, JOSSIE ####[facility]ATORYCLIA [id number] [address] [facility] THERAPY NTon 06-24-2022 THERAPY NT HNO ID: [id number] Author: Kieran Orr, PT Service: Physical Therapy Author Type: Physical Therapist Type: Therapy (PT/OT/Speech/Resp) Filed: 06/24/2022 3:09 PM Note Text: Physical Therapy Evaluation SERVICE DATE: 06/24/2022 SERVICE TIME: 1430 to 1455 ROOM: [place] [address] Recommended Discharge Disposition: Home PT Anticipated Discharge Needs: Supervision at Home Supervision at Home due to: Decreased safety awareness Recommended Discharge Equipment: Wheeled Walker PT 6 Clicks Score: 20 Precautions/Activity Restrictions: Fall Risk;Lines/Tubes/Drains Isolation Type: Contact AND Droplet Precautions-Plus Eyewear Current Hospital Course: 76 y/o d/c-ed home from [facility] Reason for Hospital Admission: fall Relevant Past Medical History: NPH, falls, arthritis, back surgery, melanoma, R RTC tear Response to Therapy Interventions: Improved tolerance for activity Continue skilled needs due to: Functional mobility/skill impairments Physical Therapy Problem List: Safety Deficits;Impaired Self Care;Decreased Activity Tolerance;Decreased Strength;Functional Mobility Impairment;Balance Impaired;Education Deficit Treatment Interventions: Energy Conservation Training;Strengthening; Functional Mobility Training;Balance Training;Neuromuscular Re-education Plan for next visit: Fall prevention, Family instruction, Gait training, Exercise instruction/handout, Standing Balance, Standing Tolerance, Walker Training Home Environment Patient Lives With: Spouse Assistance Available: 24-Hour Entry To Home: Stairs;Without Rail Number Of Stairs Into Home: 2 Number Of Stairs To Bed/Bath: 12 Stairs to Bed/Bath with: Unilateral Rail Tub/Shower Type: Walk in shower with grab bars and a seat Laundry: Spouse can perform Equipment Owned: Cane;Pulse Ox;Wheeled Walker Prior Functional Level: Within Functional Limits;History of Falls Prior Functional Level Comments: amb with ww Patient Report: I fell at home CURRENT FUNCTIONAL STATUS: Most recent performance Current Functional Mobility Assist Level Additional Information Rolling Supervision Supine to Sit Contact Guard Assistance Sit to Supine Scooting Supervision Sit to Stand Contact Guard Assistance Stand to Sit Contact Guard Assistance Bed to Chair Toilet/Commode Gait Contact Guard Assistance Gait Device: Wheeled Walker Gait Distance (feet): 25x2 Stairs Curb Step Car Transfer Blank becker indicate activity not attempted General Deviations/Observations : Pamela decreased;Shuffling Gait (increased retropulsion,pt asked Why am I always on my heels?) Balance: Dynamic Sitting;Dynamic Standing Dynamic Sitting Balance: Good Patient accepts moderate challenge, able to maintain balance while picking up object off floor Dynamic Standing Balance: Fair Patient accepts minimal challenge, able to maintain balance while turning head/trunk Activity Tolerance: Sitting Activity;Standing Activity Sitting Activity: LE's exercises Sitting Activity Tolerance (in minutes): 15 Standing Activity: amb Standing Activity Tolerance (in minutes): 4 JH-HLM: 7: Walk 25 feet or more Learning/Educational Needs: Equipment;Family Education/Training;Func tional Activities/Mobility;Dis charge Plan;PT In-Hospital Exercise Program;Rehabilitation Techniques and Procedures Goals for Plan of Care: Patient /Caregiver Goals: Go Home Goals: Patient will demonstrate progress with functional mobility to allow safe discharge to home with available support and/or physical assistance. Progress Toward Goals: Progressing as expected Patient will be discontinued from Physical Therapy when no further skilled needs are identified in this setting. PLAN: PT Frequency: 2 times per week Plan of Care developed with: Patient TREATMENT INTERVENTIONS: Therapy Diagnosis: Reduced mobility-other;Decrease d activities of daily living (ADL);Muscle Weakness (generalized);Unsteadin ess on feet;Abnormalities of gait and mobility-other Interventions Provided: Evaluation;Therapeutic Exercise (18704) $ Evaluation-Low (34237) Billed Units: 1 unit Therapeutic Exercise (27623) Treatment Minutes: 9 $ Therapeutic Exercise (53038) Billed Units: 1 unit Verbal and tactile cuing provided for proper technique and tempo. Education in purpose and frequency to complete exercises. Cues given to pt to perform at slower speed to optimize muscular strengthening. Educated pt regarding role of PT, potential discharge options, and reasoning for discharge recommendation. Pt sits in chair with alarm in place, call light and phone near pt post treatment. Training AND education provided in: Benefits of in-hospital mobility, Energy conservation, Equipment, Expected functional level, Exercise program, Gait pattern, reduction of deviations, Falls prevention The following therapeutic skills were used: Activity dosing, Cuing verbal, Facilitation of joint range of motion, Movement facil (more content not included)... Normal [facility] TROPONIN Ton 06-24-2022 Troponin T.cardiac [Mass/Vol] ug/L Normal 0.000-0.029 [facility] Comment on above: Order Comment: Speci men Type: BLOOD SPECIMENOrdering Facility: [facility] Address: [address] [place] [place] [address] Performed By: #### 2 4331-1, CKCKMB, 15679-9, JOSSIE ####[facility] [facility]ORYCLIA [id number] [place] [address] [place] Basic metabolic 2000 panelon 06-23-2022 Anion gap [Moles/Vol] 11 mmol/L Normal 9-18 [facility] Comment on above: Order Comment: Speci men Type: BLOOD SPECIMEN [facility] Address: [address] [place] [place] [address] Performed By: #### 2 4321-2 #### [facility] CLIA [id number] [place] [address] [place] Calcium [Mass/Vol] 8.9 mg/dL Normal 8.5-10.2 [facility] Comment on above: Order Comment: Speci men Type: BLOOD SPECIMEN [facility] Address: [address] [place] [address] Performed By: #### 2 4321-2 #### [facility] CLIA [id number] [address] [place] [address] [place] [facility] Chloride [Moles/Vol] 106 mmol/L High 97-105 [facility] Comment on above: Order Comment: Speci men Type: BLOOD SPECIMEN [facility] Address: [address] [place] [address] Performed By: #### 2 4321-2 #### [facility] CLIA [id number] [place] [address] [place] [facility] [place] CO2 [Moles/Vol] 24 mmol/L Normal 22-30 [facility] Comment on above: Order Comment: Speci men Type: BLOOD SPECIMEN [facility] Address: [address] [place] [address] Performed By: #### 2 4321-2 #### [facility] CLIA [id number] [address] [place] [address] Creatinine [Mass/Vol] 0.80 mg/dL Normal 0.58-0.96 [facility] Comment on above: Order Comment: Speci men Type: BLOOD SPECIMEN [facility] Address: [address] [place] [address] Performed By: #### 2 4321-2 #### [facility] CLIA [id number] [address] [place] [address] ESTIMATED GLOMERULAR FILTRATION RATE 76 mL/min/1.73m??? Normal >=60 [facility] Comment on above: Order Comment: Speci men Type: BLOOD SPECIMEN [facility] Address: [address] [place] [address] Result Comment: Anna mated Glomerular Filtration Rate (eGFR) is calculated using the 2020 CKD-EPI creatinine equation. This equation utilizes serum creatinine, sex, and age as parameters. The creatinine assay has traceable calibration to isotope dilution-mass spectrometry. Refer to KDIGO guidelines for clinical interpretation. In patients with unstable renal function, e.g. those with acute kidney injury, the eGFR may not accurately reflect actual GFR. Performed By: #### 2 4321-2 #### [facility] CLIA [id number] [address] [place] [address] [place] Glucose [Mass/Vol] 101 mg/dL High 74-99 [facility] Comment on above: Order Comment: Fredy dowd Type: BLOOD SPECIMEN [facility] Address: [address] [place] [address] Result Comment: The [place] [employer] (ADA) provides guidance for cutoff values for fasting glucose and random glucose. The ADA defines fasting as no caloric intake for at least 8 hours. Fasting plasma glucose results between 100 to 125 mg/dL indicate increased risk for diabetes (prediabetes). Fasting plasma glucose results greater than or equal to 126 mg/dL meet the criteria for diagnosis of diabetes. In the absence of unequivocal hyperglycemia, results should be confirmed by repeat testing. In a patient with classic symptoms of hyperglycemia or hyperglycemic crisis, random plasma glucose results greater than or equal to 200 mg/dL meet the criteria for diagnosis of diabetes. Reference: Standards of Medical Care in Diabetes 2016, [place] [employer]. Diabetes Care. 2016.39(Suppl 1). Performed By: #### 2 4321-2 #### [facility] CLIA [id number] [address] [place] [address] [place] Potassium [Moles/Vol] 3.3 mmol/L Low 3.7-5.1 [facility] Comment on above: Order Comment: Fredy dowd Type: BLOOD SPECIMEN [facility] Address: [address] [place] [address] Performed By: #### 2 4321-2 #### [facility] CLIA [id number] [address] [place] [address] [place] Sodium [Moles/Vol] 141 mmol/L Normal 136-144 [facility] Comment on above: Order Comment: Fredy dowd Type: BLOOD SPECIMEN [facility] Address: [address] [place] [address] Performed By: #### 2 4321-2 #### [facility] CLIA [id number] [address] [place] [address] [place] Urea nitrogen [Mass/Vol] 10 mg/dL Normal 7-21 [facility] Comment on above: Order Comment: Fredy dowd Type: BLOOD SPECIMEN [facility] Address: [address] [place] [place] [address] Performed By: #### 2 4321-2 #### [facility] CLIA [id number] [address] [place] [address] [place] CBC panel Auto (Bld)on 06-23 Erythrocyte distribution width (RBC) [Ratio] 15.3 % High 11.5-15.0 [facility] Comment on above: Order Comment: Speci men Type: BLOOD SPECIMEN [facility] Address: [address] [place] [address] Performed By: #### 5 8410-2 #### [facility] CLIA [id number] [address] [place] [address] OF [place] Hematocrit (Bld) [Volume fraction] 35.9 % Low 36.0-46.0 [facility] Comment on above: Order Comment: Speci men Type: BLOOD SPECIMEN [facility] Address: [address] [place], [place] [address] Performed By: #### 5 8410-2 #### [facility] CLIA [id number] [address] [place] [address] OF [place] Hemoglobin (Bld) [Mass/Vol] 12.0 g/dL Normal 11.5-15.5 [facility] Comment on above: Order Comment: Speci men Type: BLOOD SPECIMEN Ordering Facility: [facility] Address: [address] [place] [address] Performed By: #### 5 8410-2 #### [facility] CLIA [id number] [address] [place] [address] [place] MCH (RBC) [Entitic mass] 28.3 pg Normal 26.0-34.0 [facility] Comment on above: Order Comment: Speci men Type: BLOOD SPECIMEN Ordering Facility: [facility] Address: [address] [place] [address] Performed By: #### 5 8410-2 #### [facility] CLIA [id number] [address] [place] [address] [place] MCHC (RBC) [Mass/Vol] 33.4 g/dL Normal 30.5-36.0 [facility] Comment on above: Order Comment: Speci men Type: BLOOD SPECIMEN Ordering Facility: [facility] Address: [address] [address] Performed By: #### 5 8410-2 #### [facility] CLIA [id number] [address] [place] [address] [place] MCV (RBC) [Entitic vol] 84.7 fL Normal 80.0-100.0 [facility] Comment on above: Order Comment: Speci men Type: BLOOD SPECIMEN Ordering Facility: [facility] Address: [address] [address] Performed By: #### 5 8410-2 #### [facility] CLIA [id number] [address] [place] [address] [place] Nucleated RBC (Bld) [#/Vol] 10*3/uL Normal <0.01 [facility] Comment on above: Order Comment: Speci men Type: BLOOD SPECIMEN Ordering Facility: [facility] Address: [address] [address] Performed By: #### 5 8410-2 #### [facility] CLIA [id number] [address] [place] [address] [place] Platelet mean volume (Bld) [Entitic vol] 10.4 fL Normal 9.0-12.7 [facility] Comment on above: Order Comment: Speci men Type: BLOOD SPECIMEN Ordering Facility: [facility] Address: [address] [address] Performed By: #### 5 8410-2 #### [facility] CLIA [id number] [address] [place] [address] [place] Platelets (Bld) [#/Vol] 162 10*3/uL Normal 150-400 [facility] Comment on above: Order Comment: Speci men Type: BLOOD SPECIMEN Ordering Facility: [facility] Address: [address] [address] Performed By: #### 5 8410-2 #### [facility] CLIA [id number] [address] [place] [address] [place] RBC (Bld) [#/Vol] 4.24 10*6/uL Normal 3.90-5.20 [facility] Comment on above: Order Comment: Speci men Type: BLOOD SPECIMEN Ordering Facility: [facility] Address: [address] [place] [address] Performed By: #### 5 8410-2 #### [facility] CLIA [id number] [address] [place] [address] [facility] OF [place] WBC (Bld) [#/Vol] 7.54 10*3/uL Normal 3.70-11.00 [facility] Comment on above: Order Comment: Speci men Type: BLOOD SPECIMEN Ordering Facility: [facility] Address: [address] [place] [address] Performed By: #### 5 8410-2 #### [facility] CLIA [id number] [address] [place] [address] OF [facility] CONSULTon 06-23-2022 CONSULT HNO ID: [id number] Author: Vivien Dietz MD Service: Infectious Disease Author Type: Physician Type: Consults Filed: 06/24/2022 11:38 AM Note Text: [facility] - Consultation CHRISTIAN SUGGS : 1945 AGE: 76 SEX: F CSN: [id number] HOSP SVC: [facility] LOCATION: [facility] ATTENDING PHYSICIAN: Leonela Stein M.D. DATE OF SERVICE: 06/23/2022 TIME OF SERVICE: 08:33 PM CONSULTING PHYSICIAN: Vivien Dietz M.D. REASON FOR CONSULTATION: To evaluate for COVID positive illness. HISTORY OF PRESENT ILLNESS: This is a 76-year-old female with a history significant for arthritis, right thigh melanoma, presented from [place] [facility] after fall. Patient was feeling very weak at home. She was getting up to go to bathroom and had mechanical fall. No skeletal injuries were skeletal survey in ED. Patient was recently hospitalized for COVID and was discharged 1 day before. Patient also has a urinary retention and Damon was placed recently in hospital. In ED, she had CT scan of the brain revealed no intracranial abnormality. However, CT of the abdomen and pelvis has revealed 2.0 x 1.3 x 1.9 cm hypodense mass in the region of endometrial canal. UA was consistent with UTI. Patient was transferred to [facility] for further care. In ED, there was a documented hypoxia of 85% on room air, so she was placed on 2 L. At present she reports no fever, no chills. She feels confused and disoriented. On direct questioning, denies any chest pain. No palpitations. No calf pain. No focal motor neurological symptoms. Patient also had elevation of troponin. She denies any calf pain. No focal motor neurological symptoms. She has subjective feeling of shortness of breath x 2 days, worse on lying down, better with sitting up position and on oxygen. COMPLETE REVIEW OF SYSTEMS: No headache. No sinus congestion. No neck pain. No thyroid enlargement. No cervical lymph node. No chest pain or palpitations. No abdominal pain. Has no dysuria. No focal motor neurological symptoms. Ten systems reviewed, otherwise were negative. PAST MEDICAL HISTORY: Significant for allergic rhinitis, arthritis, C difficile enteritis, history of back surgery, melanoma, right thigh rotator cuff tear, arthroplasty of the right shoulder, carpal tunnel syndrome bilaterally, colonoscopy, orthopedic surgery history, history of bladder repair, melanoma removal. Current Facility-Administered Medications Medication Dose Route Frequency Provider Last Rate Last Admin NaCl 0.9% iv flush bag 20 mL INTRAVENOUS PRN Dipika Melyl, PLUMBER GASFITTER.BRIM SHAPER sodium chloride 0.9 % (flush) 3-5 mL (BD POSIFLUSH) 3-5 mL INTRAVENOUS q 12 H Dipika Lamiell, PLUMBER GASFITTER.BRIM SHAPER 3 mL at 06/24/22 0903 acetaminophen 650 mg tab(s) (TYLENOL) 650 mg ORAL q 6 H PRN Dipika Lamiell, PLUMBER GASFITTER.BRIM SHAPER 650 mg at 06/23/22 0340 vlxppom-fpxekujxz-vxeta in D3 500 mg-5 mcg (200 unit) 1 tablet 1 tablet ORAL BID Dipika Melyl, PLUMBER GASFITTER.BRIM SHAPER 1 tablet at 06/24/22 0901 budesonide, enteric coated 6 mg cap(s) (ENTOCORT EC) 6 mg ORAL BEFORE BREAKFAST DAILY Dipika Melyl, PLUMBER GASFITTER.BRIM SHAPER 6 mg at 06/24/22900 therapeutic multivitamin-minerals tablet (THERA-M PLUS) 1 tablet ORAL DAILY Dipika Frederick APRN.BRIM SHAPER 1 tablet at 06/24/22900 meloxicam 7.5 mg tab(s) (MOBIC) 7.5 mg ORAL DAILY Dipika Frederick APRN.BRIM SHAPER 7.5 mg at 06/24/22900 aspirin, enteric coated 81 mg tab(s) 81 mg ORAL DAILY Dipika Frederick APRN.BRIM SHAPER 81 mg at 06/24/22901 DULoxetine 30 mg cap(s) (CYMBALTA) 30 mg ORAL AT BEDTIME Dipika Frederick APRN.BRIM SHAPER 30 mg at 06/23/222048 rosuvastatin 5 mg tab(s) (CRESTOR) 5 mg ORAL AT BEDTIME Dipika Frederick APRN.BRIM SHAPER 5 mg at 06/23/222048 cefTRIAXone iv piggyback 1 g in dextrose (iso-osmotic) 50 mL (ROCEPHIN) 1 g INTRAVENOUS q 24 H Dipika Frederick APRN.BRIM SHAPER Stopped at 06/24/[address] 40 mg tab(s) (PROTONIX) 40 mg ORAL DAILY (6 AM) Dipika Frederick APRN.BRIM SHAPER 40 mg at 06/24/22545 remdesivir in NaCl 0.9% Vial-Mate/ADD-[place] 100 mg 275 mL 100 mg INTRAVENOUS q 24 HR Vivien Dietz MD dexAMETHasone 6 mg tab(s) (DECADRON) 6 mg ORAL DAILY WITH BREAKFAST Vivien Dietz MD 6 mg at 06/24/22900 melatonin 3 mg tab(s) 3 mg ORAL AT BEDTIME APOORAV Singh APRN.CNP 3 mg at 06/23/222048 ALLERGIES: Patient has allergy to mesalamine, Flagyl, hydrocodone, oxycodone, and scopolamine. SOCIAL HISTORY: History of smoking. No alcohol use. FAMILY HISTORY: Father had heart problem. Maternal aunt had breast cancer. PHYSICAL EXAMINATION: General: Patient is conscious, oriented, lying in bed, in no apparent distress at present. Vital Signs: Temperature of 97.3, pulse of 84, respiratory rate 14, blood pressure is 113/90, 93% on nasal cannula 2 L, 85% on room air. Weight is 77.7 kg. Height is 5 feet 4 inches. Skin: No evident rash. Neck: Supple. Oropharynx clear. No evidence of thrush. No cervical lymphadenopathy. Chest: Decreased air entry, bilateral bases. (more content not included)... Normal [facility] CONSULT PROGon 06-23-2022 CONSULT PROG HNO ID: [id number] Author: Vivien Dietz MD Service: Infectious Disease Author Type: Physician Type: Consult Progress Note Filed: 06/24/2022 2:16 AM Note Text: chart reviewed/ covid pos-06/20- documented hypoxemia iv remdesivir po decadron rec-iv remdesivir ---may dc after 3 days if stable po decadron uti--iv ceftriaxone Vivien Dietz MD 06/23/2022 ph:[id number] Normal [facility] Comprehensive metabolic 2000 panelon 06-23-2022 Albumin [Mass/Vol] 3.7 g/dL Low 3.9-4.9 [facility] Comment on above: Order Comment: Speci nile Type: BLOOD SPECIMEN Ordering Facility: [facility] Address: [address] [place] [address] Performed By: #### 2 4323-8, JOSSIE #### [facility] CLIA [id number] [address] [place] [address] [place] ALP [Catalytic activity/Vol] 75 U/L Normal 34-123 [facility] Comment on above: Order Comment: Speci men Type: BLOOD SPECIMEN Ordering Facility: [facility] Address: [address] [address] Performed By: #### 2 4323-8, JOSSIE #### [facility] CLIA [id number] [address] [place] [address] [place] ALT [Catalytic activity/Vol] 21 U/L Normal 7-38 [facility] Comment on above: Order Comment: Speci men Type: BLOOD SPECIMEN Ordering Facility: [facility] Address: [address] [address] Performed By: #### 2 4323-8, JOSSIE #### [facility] CLIA [id number] [address] [place] [address] [place] Anion gap [Moles/Vol] 11 mmol/L Normal 9-18 [facility] Comment on above: Order Comment: Speci men Type: BLOOD SPECIMEN Ordering Facility: [facility] Address: [address] [place] [address] Performed By: #### 2 4323-8, JOSSIE #### [facility] CLIA [id number] [address] [place] [address] [place] AST [Catalytic activity/Vol] 24 U/L Normal 13-35 [facility] Comment on above: Order Comment: Speci men Type: BLOOD SPECIMEN Ordering Facility: [facility] Address: [address] [place] [address] Performed By: #### 2 4323-8, JOSSIE #### [facility] CLIA [id number] [address] [place] [address] [place] Bilirubin [Mass/Vol] mg/dL Low 0.2-1.3 [facility] Comment on above: Order Comment: Speci men Type: BLOOD SPECIMEN Ordering Facility: [facility] Address: [address] [place] [address] Performed By: #### 2 4323-8, JOSSIE #### [facility] CLIA [id number] [address] [place] [address] [place] Calcium [Mass/Vol] 8.7 mg/dL Normal 8.5-10.2 [facility] Comment on above: Order Comment: Speci men Type: BLOOD SPECIMEN Ordering Facility: [facility] Address: [address] [place] [address] Performed By: #### 2 4323-8, JOSSIE #### [facility] CLIA [id number] [address] [place] [address] [place] Chloride [Moles/Vol] 104 mmol/L Normal 97-105 [facility] Comment on above: Order Comment: Speci men Type: BLOOD SPECIMEN Ordering Facility: [facility] Address: [address] [place], [place] [id number] Performed By: #### 2 4323-8, JOSSIE #### [facility] CLIA [id number] [place] [address] [place] CO2 [Moles/Vol] 25 mmol/L Normal 22-30 [facility] Comment on above: Order Comment: Speci men Type: BLOOD SPECIMEN Ordering Facility: [facility] Address: [address] [place] [address] Performed By: #### 2 4323-8, JOSSIE #### [facility] CLIA [id number] [place] [address] [place] Creatinine [Mass/Vol] 0.86 mg/dL Normal 0.58-0.96 [facility] Comment on above: Order Comment: Garcíai men Type: BLOOD SPECIMEN Ordering Facility: [facility] Address: [address] [place] [address] Performed By: #### 2 4323-8, JOSSIE #### [facility] CLIA [id number] [address] [place] [address] [place] ESTIMATED GLOMERULAR FILTRATION RATE 69 mL/min/1.73m??? Normal >=60 [facility] Comment on above: Order Comment: Fredy dowd Type: BLOOD SPECIMEN Ordering Facility: [facility] Address: [address] [place] [address] Result Comment: Anna mated Glomerular Filtration Rate (eGFR) is calculated using the 2020 CKD-EPI creatinine equation. This equation utilizes serum creatinine, sex, and age as parameters. The creatinine assay has traceable calibration to isotope dilution-mass spectrometry. Refer to KDIGO guidelines for clinical interpretation. In patients with unstable renal function, e.g. those with acute kidney injury, the eGFR may not accurately reflect actual GFR. Performed By: #### 2 4323-8, JOSSIE #### [facility] CLIA [id number] [place] [address] [place] Glucose [Mass/Vol] 113 mg/dL High 74-99 [facility] Comment on above: Order Comment: Garcíai men Type: BLOOD SPECIMEN Ordering Facility: [facility] Address: [address] [place] [address] Result Comment: The [place] Diabetes [employer] (ADA) provides guidance for cutoff values for fasting glucose and random glucose. The ADA defines fasting as no caloric intake for at least 8 hours. Fasting plasma glucose results between 100 to 125 mg/dL indicate increased risk for diabetes (prediabetes). Fasting plasma glucose results greater than or equal to 126 mg/dL meet the criteria for diagnosis of diabetes. In the absence of unequivocal hyperglycemia, results should be confirmed by repeat testing. In a patient with classic symptoms of hyperglycemia or hyperglycemic crisis, random plasma glucose results greater than or equal to 200 mg/dL meet the criteria for diagnosis of diabetes. Reference: Standards of Medical Care in Diabetes 2016, [place] [employer] Association. Diabetes Care. 2016.39(Suppl 1). Performed By: #### 2 4323-8, JOSSIE #### [facility] CLIA [id number] [address] [place] [address] [place] Potassium [Moles/Vol] 3.9 mmol/L Normal 3.7-5.1 [facility] Comment on above: Order Comment: Speci men Type: BLOOD SPECIMEN Ordering Facility: [facility] Address: [address] [address] Performed By: #### 2 4323-8, JOSSIE #### [facility] CLIA [id number] [address] [place] [address] [place] Protein [Mass/Vol] 6.5 g/dL Normal 6.3-8.0 [facility] Comment on above: Order Comment: Speci men Type: BLOOD SPECIMEN Ordering Facility: [facility] Address: [address] [address] Performed By: #### 2 4323-8, JOSSIE #### [facility] CLIA [id number] [address] [place] [address] [place] Sodium [Moles/Vol] 140 mmol/L Normal 136-144 [facility] Comment on above: Order Comment: Speci men Type: BLOOD SPECIMEN Ordering Facility: [facility] Address: [address] [address] Performed By: #### 2 4323-8, JOSSIE #### [facility] CLIA [id number] [facility] [address] STATES [facility] Urea nitrogen [Mass/Vol] 15 mg/dL Normal 7- [facility] Comment on above: Order Comment: Fredy dowd Type: BLOOD SPECIMEN Ordering Facility: [facility] Address: [address] [place] [address] Performed By: #### 2 4323-8, JOSSIE #### [facility] CLIA [id number] OF [place] D dimer FEU PPP-mCncon 06-23 Fibrin D-dimer FEU (PPP) [Mass/Vol] 1860 ng/mL FEU High <500 [facility] Comment on above: Order Comment: Fredy dowd Type: BLOOD SPECIMENOrdering Facility: [facility] Address: [address] [place] [address] Performed By: #### 4 8065-7 ####[facility] [id number] [place] [address] [place] OF [facility] Fibrin D-dimer FEU (PPP) [Ma ss/Vol]on 06-23-2022 D DIMER AGE-RELATED CUTOFF 780 ng/mL FEU Normal [facility] Comment on above: Order Comment: Fredy dowd Type: BLOOD SPECIMENOrdering Facility: [facility] Address: [address] [place] [address] Performed By: #### 4 8065-7 ####[facility] [id number] [place] [address] [place] HISTORY PHYSICALon 2 HISTORY PHYSICAL HNO ID: [id number] Author: Leonela Stein MD Service: ? Author Type: Physician Type: HANDP Filed: 06/25/2022 11:00 PM Note Text: [facility] CHRISTIAN SUGGS : 1945 AGE: 76 SEX: F CSN: [id number] HOSP SVC: [facility] LOCATION: [facility] ATTENDING PHYSICIAN: Leonela Stein M.D. DATE OF SERVICE: 06/23/2022 SUBJECTIVE: This is a 76-year-old who was admitted to the hospital with generalized weakness, fall, and also COVID-19 infection. The patient was found to have elevation of high-sensitivity troponin. No chest pain, tightness, or pressure. Had 1 reading of pulse oximetry of 85%. This is 76-year-old female with past medical history significant for arthritis and right thigh melanoma who presents as a transfer from [place] emergency department for weakness and a fall. Her fall occurred at home. Patient's daughter states that she was getting up to go to the bathroom and fell. Unsure if she hit her head or not. Prior to that she was recently admitted for observation at [facility] for generalized weakness and COVID and discharged the day prior. A Damon catheter was placed at that time for urinary retention with plan for outpatient voiding trial by Urology. In the ED she underwent CT brain which revealed no acute intracranial abnormality, CT abdomen pelvis revealed 2.0 x 1.3 x 1.9 cm hypodense mass in the region of the endometrial canal. Chest x-ray without any acute abnormality. HSTNT 115, 14, 14, CMP otherwise unremarkable, CBC insignificant, UA with few bacteria and 3+ leuk esterase. She was started on Rocephin. She was admitted as a transfer to [facility] for further work-up of the above. ASSESSMENT AND PLAN: 1. Generalized weakness, recurrent fall. Admitted to the hospital. Fall precaution. PT, OT. Supportive care, treat underlying causes. 2. COVID-19 infection with 1 reading of hypoxia of 85%. Admitted to the hospital. Obtain D-dimer. Monitor pulse ox. O2 support to keep pulse ox above 92%. Isolation. Consult Infectious Disease for evaluation for remdesivir treatment. 3. Hypokalemia, replace. 4. CT finding of the endometrial mass. Consulted [employer]. 5. Acute cystitis. IV ceftriaxone. Urine culture and sensitivity. 6. Generalized weakness. She had a CT, could not rule out MVH. Consider Neuro consultation. Case has been discussed with the ED, consultants. We will follow up. PAST MEDICAL HISTORY Diagnosis Date Allergic rhinitis Arthritis Back C. difficile enteritis History of back surgery 2011 Melanoma (HCC) right thigh Rotator cuff tear arthropathy of right shoulder 2012 Social History Tobacco Use Smoking status: Never Smokeless tobacco: Never Vaping Use Vaping Use: Never used Substance Use Topics Alcohol use: No Drug use: No FAMILY HISTORY Problem Relation Age of Onset Heart Father late in life Breast Cancer Maternal Aunt Diabetes Other none Colon Cancer Other none Coronary Artery Disease Other none PAST SURGICAL HISTORY Procedure Laterality Date ARTHRP KNE CONDYLEANDPLATU MEDIALANDLAT COMPARTMENTS Right 10/2014 CARPAL TUNNEL 2009 bilateral COLONOSCOPY FLX DX W/COLLJ SPEC WHEN PFRMD 02-02-16 JOINT REPLACEMENT HX ORTHOPEDICS SURGERY HX PAST SURGICAL HISTORY OF 1999 bladder repair PAST SURGICAL HISTORY OF 2007 melanoma removal No results found for: HBA1C R.O.S negative other than HPI AND PMH all other SYS reviewed and negative. Current Facility-Administered Medications Medication Dose Route Frequency Provider Last Rate Last Admin NaCl 0.9% iv flush bag 20 mL INTRAVENOUS PRN Dipika Frederick PLUMBER GASFITTER.BRIM SHAPER sodium chloride 0.9 % (flush) 3-5 mL (BD POSIFLUSH) 3-5 mL INTRAVENOUS q 12 H Dipika Frederick, PLUMBER GASFITTER.BRIM SHAPER 3 mL at 06/23/22 1001 acetaminophen 650 mg tab(s) (TYLENOL) 650 mg ORAL q 6 H PRN Dipika Frederick, PLUMBER GASFITTER.BRIM SHAPER 650 mg at 06/23/22 0340 ghlaanh-ljcmefjcq-upnwf in D3 500 mg-5 mcg (200 unit) 1 tablet 1 tablet ORAL BID Dipika Frederick, PLUMBER GASFITTER.BRIM SHAPER 1 tablet at 06/23/22 1003 budesonide, enteric coated 6 mg cap(s) (ENTOCORT EC) 6 mg ORAL BEFORE BREAKFAST DAILY Dipika Melyl, PLUMBER GASFITTER.BRIM SHAPER 6 mg at 06/23/22 1049 therapeutic multivitamin-minerals tablet (THERA-M PLUS) 1 tablet ORAL DAILY Dipika Otoniel, PLUMBER GASFITTER.BRIM SHAPER 1 tablet at 06/23/22 1003 meloxicam 7.5 mg tab(s) (MOBIC) 7.5 mg ORAL DAILY Dipika Otoniel, PLUMBER GASFITTER.BRIM SHAPER 7.5 mg at 06/23/22 1003 aspirin, enteric coated 81 mg tab(s) 81 mg ORAL DAILY Dipikacaitlin Frederick, PLUMBER GASFITTER.BRIM SHAPER 81 mg at 06/23/22 1003 DULoxetine 30 mg cap(s) (CYMBALTA) 30 mg ORAL AT BEDTIME Dipika Frederick PLUMBER GASFITTER.BRIM SHAPER rosuvastatin 5 mg tab(s) (CRESTOR) 5 mg ORAL AT BEDTIME Dipika Frederick APRN.CNP cefTRIAXone iv piggyback 1 g in dextrose (iso-osmotic) 50 mL (ROCEPHIN) 1 g INTRAVENOUS q 24 H Dipika Frederick APRN.BRIM SHAPER Stopped at 06/23/[address] 40 mg tab(s) (PROTONIX) 40 mg ORAL DAILY (6 AM) Dipika Frederick APRN.BRIM SHAPER 40 mg at 06/23/22 0636 potassium (more content not included)... Normal [facility] NURSING PROGon 06-23-2022 NURSING PROG HNO ID: [id number] Author: Danielle Weldon RN Service: Nursing Author Type: Registered Nurse Type: Nursing Progress Note Filed: 06/23/2022 2:09 AM Note Text: Pt admitted to [place] [address] from outside hospital. Pt Aox3, arrived with a damon in place, on RA. Denies any needs at this time. Team paged for orders. Normal [facility] TROPONIN Ton 06-23-2022 Troponin T.cardiac [Mass/Vol] ug/L Normal 0.000-0.029 [facility] Comment on above: Order Comment: Speci men Type: BLOOD SPECIMEN Ordering Facility: [facility] Address: [address] [place] [address] Performed By: #### 2 4323-8, JOSSIE #### [facility] CLIA [id number] [address] [place] [address] [place] MRI BRAIN WO/W IVCONon 05-30 MRI BRAIN WO/W IVCON * * *Final Report* * * DATE OF EXAM: May 30 2022 12:27PM [facility] 0295 - MRI BRAIN WO/W IVCON / PROCEDURE REASON: cine mri to assess for normal pressure hydrocephal * * * * Physician Interpretation * * * * EXAMINATION: MRI BRAIN WO/W IVCON HISTORY: Cerebral ventriculomegaly. cine mri to assess for normal pressure hydrocephal TECHNIQUE: Routine brain MRI protocol without and with contrast including diffusion and gradient echo images. MQ: [id number] Contrast: 16 mL Dotarem IV COMPARISON: 03/20/2022. RESULT: Acute Change: There is no evidence of restricted diffusion to suggest an acute infarct. Hemorrhage: No evidence of prior parenchymal hemorrhage on the gradient echo images. Mass Lesion/ Mass Effect: No evidence of an intracranial mass or extra-axial fluid collection. No abnormal parenchymal or leptomeningeal enhancement is noted following contrast administration. No significant mass effect. Chronic Change: Scattered patchy and confluent areas of increased T2 and FLAIR signal are present in the supratentorial white matter which is nonspecific but likely represents chronic microvascular ischemia, stable in extent. Parenchyma: No significant volume loss for age. The brain parenchyma is otherwise within normal limits of signal intensity and morphology. CSF flow: Bidirectional flow related signal in the prepontine and premedullary cisterns, anterior and posterior foramen magnum, cerebral aqueduct, fourth ventricle and outlet foramina. No evidence of aliasing in the aqueduct to indicate hyperdynamic flow. Ventricles: Ventricular prominence of lateral/third ventricles with mild fourth ventricular prominence, however stable in size. DESH morphology is present, callosal angle 72 degrees, and López index 0.3. As such communicating hydrocephalus is not excluded. However given the degree of white matter chronic change a component of central volume loss may also contribute. Skull Base: Hypothalamic and pituitary region are grossly normal. Craniocervical junction is normal. No significant marrow replacement process. Vasculature: Major intracranial arterial structures, and dural venous sinuses show typical flow void, suggesting patency by spin echo criteria. Other: The visualized paranasal sinuses and mastoid air cells are clear. The orbits and extracranial soft tissues are unremarkable. IMPRESSION: No evidence of an acute intracranial process. Ventriculomegaly which could relate to volume loss and/or communicating hydrocephalus such as NPH in the appropriate clinical setting. Patent CSF flow study without hyperdynamic flow. Irrigation District Manager: [facility]issa Transcribe Date/Time: May 30 2022 12:45P Dictated by : REHAN MULLER MD This examination was interpreted and the report reviewed and electronically signed by: REHAN MULLER MD on May 30 2022 12:50PM EST [id number] Normal [facility] Absolute lymphocyte counton 05-10-2022 Lymphocytes Auto (Unsp spec) [#/Vol] 1.85 10*3/uL 0.83-4.51 [facility] Work Phone: Basophil percentageon 2021 Basophils/100 WBC (Bld) 0.6 % 0-1 [facility] Work Phone: Bilirubin [Mass/Vol] 0.20 mg/dL 0.20-1.00 [facility] Work Phone: Comment on above: For patients on eltr ombopag therapy, use of Dimension [place] TBIL is not recommended. Chloride [Moles/Vol] 106 mmol/L 98-107 [facility] Work Phone: Eosinophils/100 WBC (Bld) 2.4 % 0-5 [facility] Work Phone: Glucose [Mass/Vol] 104 mg/dL 74-106 [facility] Work Phone: Comment on above: Fasting Glucose resu lt from 100 to 125 mg/dL suggests IMPAIRED HOMEOSTASIS per A.D.A. criteria. Neutrophils (Bld) [#/Vol] 3.9 10*3/uL 2.0-7.7 [facility] Work Phone: Neutrophils/100 WBC (Bld) 61.4 % 47-70 [facility] Work Phone: [phone] Potassium [Moles/Vol] 3.8 mmol/L 3.5-5.1 [facility] Work Phone: Protein [Mass/Vol] 6.9 g/dL 6.4-8.2 [facility] Work Phone: [phone] Sodium [Moles/Vol] 138 mmol/L 136-145 [facility] Work Phone: WBC (Bld) [#/Vol] 6.4 10*3/uL 4.4-11.0 [facility] Work Phone: Blood erythrocytes count (nu mber/volume)on 05-10-2022 RBC (Bld) [#/Vol] 4.70 10*6/uL 4.2-5.4 [facility] Work Phone: Blood hemoglobin measurement (mass/volume)on 05-10-2022 Hemoglobin (Bld) [Mass/Vol] 13.4 g/dL 12.0-15.0 [facility] Work Phone: Blood lymphocytes/100 leukoc yteson 05-10-2022 Lymphocytes/100 WBC (Bld) 29.0 % 19-41 [facility] Work Phone: Blood monocytes/100 leukocyt eson 05-10-2022 Monocytes/100 WBC (Bld) 6.3 % 0-10 [facility] Work Phone: Blood platelet mean volumeon 05-10-2022 Platelet mean volume (Bld) [Entitic vol] 10.3 fL 6.2-12.0 [facility] Work Phone: Determination of erythrocyte mean corpuscular volume (MCV)on 05-10-2022 MCV (RBC) [Entitic vol] 88.1 fL 81-99 [facility] Work Phone: Hematocrit Auto (Bld) [Volum e fraction]on 05-10-2022 Hematocrit (Bld) [Volume fraction] 41.4 % 37-47 [facility] Work Phone: Laboratory - Chemistry and C hemistry - challengeon 05-10-2022 ALP [Catalytic activity/Vol] 73 U/L 45-117 [facility] Work Phone: ALT [Catalytic activity/Vol] 21 U/L 13-56 [facility] Work Phone: CO2 [Moles/Vol] 25.0 mmol/L 21.0-32.0 [facility] Work Phone: Globulin (S) [Mass/Vol] 3.6 g/dL 2.2-4.2 [facility] Work Phone: Lipase [Catalytic activity/Vol] 198 U/L 73-393 [facility] Work Phone: Urea nitrogen/Creatinine [Mass ratio] 24.3 mg/mg 10-20 [facility] Work Phone: Laboratory - Hematology and Cell countson 05-10-2022 Erythrocyte distribution width (RBC) [Entitic vol] 46.7 fL 35.1-43.9 [facility] Work Phone: Erythrocyte distribution width (RBC) [Ratio] 14.6 % 11.6-14.6 [facility] Work Phone: Immature granulocytes/100 WBC (Bld) 0.300 % 0.0-0.9 [facility] Work Phone: Comment on above: IG% - Immature Granu locytes (promyelocytes, myelocytes and metamyelocytes) > 1% indicates that a LEFT SHIFT is Present. MCH (RBC) [Entitic mass] 28.5 pg 27.0-32.0 [facility] Work Phone: Nucleated RBC/100 WBC (Bld) [Ratio] 0 % 0-5 [facility] Work Phone: MCHC Auto (RBC) [Mass/Vol]on 05-10-2022 MCHC (RBC) [Mass/Vol] 32.4 g/dL 32-36 [facility] Work Phone: No Panel Informationon 05-10 Estimated GFR (MDRD) Amer 91 mL/min >60 [facility] Work Phone: Comment on above: GFR Calc Estimated GFR (MDRD) Non-Af Amer 75 mL/min >60 [facility] Work Phone: Comment on above: Non- GFR Calc Platelets bldon 05-10-2022 Platelets (Bld) [#/Vol] 195 10*3/uL 150-450 [facility] Work Phone: Serum or plasma albumin ana laura urement (mass/volume)on 05-10-2022 Albumin [Mass/Vol] 3.3 g/dL 3.2-5.0 [facility] Work Phone: Serum or plasma albumin/glob ulin mass ratioon 05-10-2022 Albumin/Globulin [Mass ratio] 0.9 {ratio} 0.9-2.4 [facility] Work Phone: Serum or plasma calcium ana laura urement (mass/volume)on 05-10-2022 Calcium [Mass/Vol] 8.9 mg/dL 8.5-10.1 [facility] Work Phone: Serum or plasma creatinine m easurement (mass/volume)on 05-10-2022 Creatinine [Mass/Vol] 0.78 mg/dL 0.55-1.02 [facility] Work Phone: Comment on above: The validity of the calculated GFR & GFRAA in patients over 70 years has not been determined. Clinical correlation is essential. Serum or plasma urea nitroge n measurement (mass/volume)on 05-10-2022 Urea nitrogen [Mass/Vol] 19 mg/dL 7-18 [facility] Work Phone: Thin prep Papanicolaou smear with manual screeningon 05-10-2022 Thin prep Papanicolaou smear with manual screening 19 U/L 15-37 [facility] Work Phone: Thin prep Papanicolaou smear with manual screening 7 5-15 [facility] Work Phone: Absolute lymphocyte counton 04-16-2022 Lymphocytes Auto (Unsp spec) [#/Vol] 1.06 10*3/uL 0.83-4.51 [facility] Work Phone: Basophil percentageon 2021 Basophils/100 WBC (Bld) 0.5 % 0-1 [facility] Work Phone: Bilirubin [Mass/Vol] 0.40 mg/dL 0.20-1.00 [facility] Work Phone: Comment on above: For patients on eltr ombopag therapy, use of Dimension [place] TBIL is not recommended. Chloride [Moles/Vol] 104 mmol/L 98-107 [facility] Work Phone: Eosinophils/100 WBC (Bld) 3.1 % 0-5 [facility] Work Phone: Glucose [Mass/Vol] 105 mg/dL 74-106 [facility] Work Phone: [phone] Comment on above: Fasting Glucose resu lt from 100 to 125 mg/dL suggests IMPAIRED HOMEOSTASIS per A.D.A. criteria. Neutrophils (Bld) [#/Vol] 4.3 10*3/uL 2.0-7.7 [facility] Work Phone: Neutrophils/100 WBC (Bld) 70.0 % 47-70 [facility] Work Phone: Potassium [Moles/Vol] 4.2 mmol/L 3.5-5.1 [facility] Work Phone: Protein [Mass/Vol] 7.0 g/dL 6.4-8.2 [facility] Work Phone: Sodium [Moles/Vol] 140 mmol/L 136-145 [facility] Work Phone: WBC (Bld) [#/Vol] 6.1 10*3/uL 4.4-11.0 [facility] Work Phone: Bilirubin Test strip Ql (U)o n 04-16-2022 Bilirubin Ql (U) Negative Negative [facility] Work Phone: Blood erythrocytes count (nu mber/volume)on 04-16-2022 RBC (Bld) [#/Vol] 4.56 10*6/uL 4.2-5.4 [facility] Work Phone: Blood hemoglobin measurement (mass/volume)on 04-16-2022 Hemoglobin (Bld) [Mass/Vol] 13.6 g/dL 12.0-15.0 [facility] Work Phone: Blood lymphocytes/100 leukoc yteson 04-16-2022 Lymphocytes/100 WBC (Bld) 17.5 % 19-41 [facility] Work Phone: [phone] Blood monocytes/100 leukocyt eson 04-16-2022 Monocytes/100 WBC (Bld) 8.6 % 0-10 [facility] Work Phone: Blood platelet mean volumeon 04-16-2022 Platelet mean volume (Bld) [Entitic vol] 10.8 fL 6.2-12.0 [facility] Work Phone: Determination of erythrocyte mean corpuscular volume (MCV)on 04-16-2022 MCV (RBC) [Entitic vol] 89.5 fL 81-99 [facility] Work Phone: Hematocrit Auto (Bld) [Volum e fraction]on 04-16-2022 Hematocrit (Bld) [Volume fraction] 40.8 % 37-47 [facility] Work Phone: Ketones Test strip Ql (U)on 04-16-2022 Ketones Ql (U) Negative Negative [facility] Work Phone: Laboratory - Chemistry and C hemistry - challengeon 04-16-2022 ALP [Catalytic activity/Vol] 65 U/L 45-117 [facility] Work Phone: ALT [Catalytic activity/Vol] 23 U/L 13-56 [facility] Work Phone: CO2 [Moles/Vol] 30.0 mmol/L 21.0-32.0 [facility] Work Phone: Globulin (S) [Mass/Vol] 3.9 g/dL 2.2-4.2 [facility] Work Phone: Urea nitrogen/Creatinine [Mass ratio] 17.2 mg/mg 10-20 [facility] Work Phone: Laboratory - Hematology and Cell countson 04-16-2022 Erythrocyte distribution width (RBC) [Entitic vol] 48.8 fL 35.1-43.9 [facility] Work Phone: Erythrocyte distribution width (RBC) [Ratio] 14.8 % 11.6-14.6 [facility] Work Phone: Immature granulocytes/100 WBC (Bld) 0.300 % 0.0-0.9 [facility] Work Phone: Comment on above: IG% - Immature Granu locytes (promyelocytes, myelocytes and metamyelocytes) > 1% indicates that a LEFT SHIFT is Present. MCH (RBC) [Entitic mass] 29.8 pg 27.0-32.0 [facility] Work Phone: Nucleated RBC/100 WBC (Bld) [Ratio] 0 % 0-5 [facility] Work Phone: MCHC Auto (RBC) [Mass/Vol]on 04-16-2022 MCHC (RBC) [Mass/Vol] 33.3 g/dL 32-36 [facility] Work Phone: Nitrite Test strip Ql (U)on 04-16-2022 Nitrite Ql (U) Negative Negative [facility] Work Phone: No Panel Informationon 04-16 Estimated GFR (MDRD) Amer 81 mL/min >60 [facility] Work Phone: Comment on above: GFR Calc Estimated GFR (MDRD) Non-Af Amer 67 mL/min >60 [facility] Work Phone: Comment on above: Non- GFR Calc Thyroid Stimulating Hormone (TSH) 2.12 uIU/mL 0.358-3.74 [facility] Work Phone: Platelets bldon 04-16-2022 Platelets (Bld) [#/Vol] 189 10*3/uL 150-450 [facility] Work Phone: Protein Test strip Ql (U)on 04-16-2022 Protein Ql (U) Negative Negative [facility] Work Phone: Serum or plasma albumin ana laura urement (mass/volume)on 04-16-2022 Albumin [Mass/Vol] 3.1 g/dL 3.2-5.0 [facility] Work Phone: Serum or plasma albumin/glob ulin mass ratioon 04-16-2022 Albumin/Globulin [Mass ratio] 0.8 {ratio} 0.9-2.4 [facility] Work Phone: Serum or plasma calcium ana laura urement (mass/volume)on 04-16-2022 Calcium [Mass/Vol] 9.2 mg/dL 8.5-10.1 [facility] Work Phone: Serum or plasma creatinine m easurement (mass/volume)on 04-16-2022 Creatinine [Mass/Vol] 0.87 mg/dL 0.55-1.02 [facility] Work Phone: Comment on above: The validity of the calculated GFR & GFRAA in patients over 70 years has not been determined. Clinical correlation is essential. Serum or plasma urea nitroge n measurement (mass/volume)on 04-16-2022 Urea nitrogen [Mass/Vol] 15 mg/dL 7-18 [facility] Work Phone: Thin prep Papanicolaou smear with manual screeningon 04-16-2022 Thin prep Papanicolaou smear with manual screening 17 U/L 15-37 [facility] Work Phone: Thin prep Papanicolaou smear with manual screening 6 5-15 [facility] Work Phone: Urine blood detectionon 03-22 RBC Ql (U) Negative Negative [facility] Work Phone: Urine clarityon 04-16-2022 Clarity (U) Clear Clear [facility] Work Phone: Urine color determinationon 04-16-2022 Color (U) Yellow Yellow [facility] Work Phone: Urine glucose detectionon Glucose Ql (U) Normal mg/dl Normal [facility] Work Phone: Urine leukocyte esterase det ection by dipstickon 04-16-2022 Leukocyte esterase Test strip Ql (U) Negative Negative [facility] Work Phone: Urine pHon 04-16-2022 pH (U) 8.0 [pH] 5.0 - 8.0 [facility] Work Phone: Urine specific gravity measu rementon 04-16-2022 Specific gravity (U) [Rel density] 1.010 1.002-1.030 [facility] Work Phone: Urobilinogen Auto test strip Ql (U)on 04-16-2022 Urobilinogen Ql (U) Normal mg/dl Normal [facility] Work Phone: No Panel Informationon 11-01 Whole Blood Vitamin B1 Level 123.2 nmol/L 66.5-200.0 [facility] Work Phone: Comment on above: Performed at: [address] [id number] Director: Lucio Khan MD, Phone: [phone] Serum or plasma folate measu rement (mass/volume)on 11-01-2021 Folate [Mass/Vol] 56.00 ng/mL 3.1-55.4 [facility] Work Phone: No Panel Informationon 10-24 Thyroid Stimulating Hormone (TSH) 2.76 uIU/mL 0.358-3.74 [facility] Work Phone: Absolute lymphocyte counton 10-04-2021 Lymphocytes Auto (Unsp spec) [#/Vol] 1.83 10*3/uL 0.83-4.51 [facility] Work Phone: Atypical perinuclear antineu trophil cytoplasmic antibodies measurementon 10-04-2021 Neutrophil cytoplasmic Ab.perinuclear.atypical IF (S) [Titer] <1:20 titer Neg:<1:20 [facility] Work Phone: Comment on above: The atypical pANCA p attern has been observed in asignificant percentage of patients with ulcerative colitis,primary sclerosing cholangitis and autoimmune hepatitis. Basophil percentageon 2021 Basophil percentage < 0.2 AI 0.0-0.9 [facility] Work Phone: Basophils/100 WBC (Bld) 0.6 % 0-1 [facility] Work Phone: Bilirubin [Mass/Vol] 0.20 mg/dL 0.20-1.00 [facility] Work Phone: Comment on above: For patients on eltr ombopag therapy, use of Dimension [place] TBIL is not recommended. Chloride [Moles/Vol] 106 mmol/L 98-107 [facility] Work Phone: Eosinophils/100 WBC (Bld) 1.2 % 0-5 [facility] Work Phone: Glucose [Mass/Vol] 101 mg/dL 74-106 [facility] Work Phone: Comment on above: Fasting Glucose resu lt from 100 to 125 mg/dL suggests IMPAIRED HOMEOSTASIS per A.D.A. criteria. Neutrophils (Bld) [#/Vol] 4.1 10*3/uL 2.0-7.7 [facility] Work Phone: Neutrophils/100 WBC (Bld) 63.4 % 47-70 [facility] Work Phone: Potassium [Moles/Vol] 4.2 mmol/L 3.5-5.1 [facility] Work Phone: Protein [Mass/Vol] 7.2 g/dL 6.4-8.2 [facility] Work Phone: Sodium [Moles/Vol] 137 mmol/L 136-145 [facility] Work Phone: WBC (Bld) [#/Vol] 6.4 10*3/uL 4.4-11.0 [facility] Work Phone: [phone] Blood erythrocytes count (nu mber/volume)on 10-04-2021 RBC (Bld) [#/Vol] 4.84 10*6/uL 4.2-5.4 [facility] Work Phone: Blood hemoglobin measurement (mass/volume)on 10-04-2021 Hemoglobin (Bld) [Mass/Vol] 14.3 g/dL 12.0-15.0 [facility] Work Phone: [phone] Blood lymphocytes/100 leukoc yteson 10-04-2021 Lymphocytes/100 WBC (Bld) 28.4 % 19-41 [facility] Work Phone: Blood monocytes/100 leukocyt eson 10-04-2021 Monocytes/100 WBC (Bld) 6.2 % 0-10 [facility] Work Phone: Blood platelet mean volumeon 10-04-2021 Platelet mean volume (Bld) [Entitic vol] 10.0 fL 6.2-12.0 [facility] Work Phone: Determination of erythrocyte mean corpuscular volume (MCV)on 10-04-2021 MCV (RBC) [Entitic vol] 87.4 fL 81-99 [facility] Work Phone: Erythrocyte sedimentation ra stan 10-04-2021 ESR (Bld) [Velocity] 28 mm/h 0-30 [facility]: Hematocrit Auto (Bld) [Volum e fraction]on 10-04-2021 Hematocrit (Bld) [Volume fraction] 42.3 % 37-47 [facility] Work Phone: Laboratory - Chemistry and C hemistry - challengeon 10-04-2021 ALP [Catalytic activity/Vol] 75 U/L 45-117 [facility] Work Phone: ALT [Catalytic activity/Vol] 24 U/L 13-56 [facility] Work Phone: CK [Catalytic activity/Vol] 93 U/L 26-192 [facility] Work Phone: CO2 [Moles/Vol] 28.0 mmol/L 21.0-32.0 [facility] Work Phone: Cobalamin (Vitamin B12) [Mass/Vol] 922 pg/mL 211-911 [facility] Work Phone: Globulin (S) [Mass/Vol] 3.6 g/dL 2.2-4.2 [facility] Work Phone: Urea nitrogen/Creatinine [Mass ratio] 24.0 mg/mg 10-20 [facility] Work Phone: Laboratory - Hematology and Cell countson 10-04-2021 Erythrocyte distribution width (RBC) [Entitic vol] 45.0 fL 35.1-43.9 [facility] Work Phone: Erythrocyte distribution width (RBC) [Ratio] 14.0 % 11.6-14.6 [facility] Work Phone: Immature granulocytes/100 WBC (Bld) 0.200 % 0.0-0.9 [facility] Work Phone: Comment on above: IG% - Immature Granu locytes (promyelocytes, myelocytes and metamyelocytes) > 1% indicates that a LEFT SHIFT is Present. MCH (RBC) [Entitic mass] 29.5 pg 27.0-32.0 [facility] Work Phone: Nucleated RBC/100 WBC (Bld) [Ratio] 0 % 0-5 [facility] Work Phone: MCHC Auto (RBC) [Mass/Vol]on 10-04-2021 MCHC (RBC) [Mass/Vol] 33.8 g/dL 32-36 [facility] Work Phone: No Panel Informationon 10-04 Centromere B Antibody <0.2 AI 0.0-0.9 [facility] Work Phone: Estimated GFR (MDRD) Amer 76 mL/min >60 [facility] Work Phone: Comment on above: GFR Calc Estimated GFR (MDRD) Non-Af Amer 63 mL/min >60 [facility] Work Phone: Comment on above: Non- GFR Calc Immunoglobulin E 7 IU/mL 6-495 [facility] Work Phone: [employer] CONSULTANT Antibody <0.2 AI 0.0-0.9 [facility] Work Phone: Thyroid Stimulating Hormone (TSH) 2.87 uIU/mL 0.358-3.74 [facility] Work Phone: Vitamin D 25-Hydroxy 62.3 ng/mL [facility] Work Phone: Comment on above: Vitamin D 25(OH) Sta tus Range Deficiency <20 ng/mL (50nmol/L) Insufficiency 20 - 30 ng/mL (50 - 75 nmol/L) Sufficiency 30 - 100 ng/mL (75 - 250 nmol/L) Toxicity >100 ng/mL (>250 nmol/L) Platelets bldon 10-04-2021 Platelets (Bld) [#/Vol] 187 10*3/uL 150-450 [facility] Work Phone: Serum DNA double strand anti body assay (units/volume)on 10-04-2021 DNA double strand Ab Qn (S) [IU]/mL 0-9 [facility] Work Phone: Comment on above: Negative <5 Equivoca l 5 - 9 Positive >9 Serum Khushboo-1 antibody assay (u nits/volume)on 10-04-2021 Khushboo-1 extractable nuclear Ab Qn (S) <0.2 AI 0.0-0.9 [facility] Work Phone: Serum Scl-70 extractable nuc lear antibody assay (units/volume)on 10-04-2021 SCL-70 extractable nuclear Ab Qn (S) 0.3 AI 0.0-0.9 [facility] Work Phone: Serum Garcia extractable nucl ear antibody detectionon 10-04-2021 Garcia extractable nuclear Ab Ql (S) <0.2 AI 0.0-0.9 [facility] Work Phone: Serum classic neutrophil cyt oplasmic antibody assay (units/volume)on 10-04-2021 Neutrophil cytoplasmic Ab.classic Qn (S) <1:20 titer Neg:<1:20 [facility] Work Phone: Serum or plasma C reactive p rotein measurement (mass/volume)on 10-04-2021 CRP [Mass/Vol] mg/L 0.0-3.0 [facility] Work Phone: Comment on above: C-Reactive Protein ( CRP) provides useful information for thediagnosis, therapy and monitoring of inflammatory processesand associated diseases. For the evaluation of Relative Riskfor Cardiovascular Disease, a High Sensitivity CRP (HSCRP)should be ordered. Serum or plasma IgA measurem ent (mass/volume)on 10-04-2021 IgA [Mass/Vol] 167 mg/dL 64-422 [facility] Work Phone: Serum or plasma IgG measurem ent (mass/volume)on 10-04-2021 IgG [Mass/Vol] 1030 mg/dL [phone] [facility] Work Phone: Serum or plasma IgM measurem ent (mass/volume)on 10-04-2021 IgM [Mass/Vol] 134 mg/dL 26-217 [facility] Work Phone: Comment on above: Performed at: [address] [id number] Director: Tavo Delcid PhD, Phone: [phone] at: - [facility] [address] [id number] Director: Lucio Khan MD, Phone: [phone] Serum or plasma albumin ana laura urement (mass/volume)on 10-04-2021 Albumin [Mass/Vol] 3.6 g/dL 3.2-5.0 [facility] Work Phone: Serum or plasma albumin/glob ulin mass ratioon 10-04-2021 Albumin/Globulin [Mass ratio] 1.0 {ratio} 0.9-2.4 [facility] Work Phone: Serum or plasma calcium ana laura urement (mass/volume)on 10-04-2021 Calcium [Mass/Vol] 8.9 mg/dL 8.5-10.1 [facility] Work Phone: Serum or plasma creatinine m easurement (mass/volume)on 10-04-2021 Creatinine [Mass/Vol] 0.92 mg/dL 0.55-1.02 [facility] Work Phone: Comment on above: The validity of the calculated GFR & GFRAA in patients over 70 years has not been determined. Clinical correlation is essential. Serum or plasma urea nitroge n measurement (mass/volume)on 10-04-2021 Urea nitrogen [Mass/Vol] 22 mg/dL 7-18 [facility] Work Phone: Serum perinuclear neutrophil cytoplasmic antibody titer by immunofluorescenceon 10-04-2021 Neutrophil cytoplasmic Ab.perinuclear IF (S) [Titer] <1:20 titer Neg:<1:20 [facility] Work Phone: Comment on above: The presence of posi tive fluorescence exhibiting P-ANCA orC-ANCA patterns alone is not specific for the diagnosis ofWegener's Granulomatosis (WG) or microscopic polyangiitis.Decisions about treatment should not be based solely onANCA IFA results. The [employer] AN[employer] Consensusrecommends follow up testing of positive sera with both SD-3 and MPO-ANCA enzyme immunoassays. As many as 5% serumsamples are positive only by EIA. Ref. AM J Clin Altpcu9834;111:507-513. Thin prep Papanicolaou smear with manual screeningon 10-04-2021 Thin prep Papanicolaou smear with manual screening 20 U/L 15-37 [facility] Work Phone: Thin prep Papanicolaou smear with manual screening 3 5-15 [facility] Work Phone: Thin prep Papanicolaou smear with manual screening 329 U/L 84-246 [facility] Work Phone: Basophil percentageon 2021 Chloride [Moles/Vol] 108 mmol/L 98-107 [facility] Work Phone: Cholesterol [Mass/Vol] 251 mg/dL <200 [facility] Work Phone: Comment on above: <200 mg/dL Desirable 200-240 mg/dL Borderline >240 mg/dL High Risk Glucose [Mass/Vol] 84 mg/dL 74-106 [facility] Work Phone: Potassium [Moles/Vol] 3.8 mmol/L 3.5-5.1 [facility]ino [facility] Work Phone: Sodium [Moles/Vol] 140 mmol/L 136-145 [facility] Work Phone: Triglyceride [Mass/Vol] 128 mg/dL <199 [facility] Work Phone: Comment on above: The drugs N-Acetylcy steine and Metamizole may falsely depress this assay.Serum Triglycerides Reference Interval Normal <150 mg/dL Borderline high 150 - 199 mg/dL High 200 - 499 mg/dL Very High > or = 500 mg/dL Erythrocyte sedimentation ra stan 09-21-2021 ESR (Bld) [Velocity] 18 mm/h 0-30 [facility] Work Phone: Laboratory - Chemistry and C hemistry - challengeon 09-21-2021 CO2 [Moles/Vol] 28.0 mmol/L 21.0-32.0 [facility] Work Phone: Urea nitrogen/Creatinine [Mass ratio] 22.4 mg/mg 10-20 [facility] Work Phone: No Panel Informationon 09-21 Anti-Nuclear Antibody Screen Negative Negative [facility] Work Phone: Comment on above: Performed at: [employer] [address] [id number] Director: Tavo Delcid PhD, Phone: [phone] Estimated GFR (MDRD) Amer 84 mL/min >60 [facility] Work Phone: Comment on above: GFR Calc Estimated GFR (MDRD) Non-Af Amer 69 mL/min >60 [facility] Work Phone: Comment on above: Non- GFR Calc Vitamin D 25-Hydroxy 45.7 ng/mL [facility] Work Phone: Comment on above: Vitamin D 25(OH) Sta tus Range Deficiency <20 ng/mL (50nmol/L) Insufficiency 20 - 30 ng/mL (50 - 75 nmol/L) Sufficiency 30 - 100 ng/mL (75 - 250 nmol/L) Toxicity >100 ng/mL (>250 nmol/L) Serum DNA double strand anti body assay (units/volume)on 09-21-2021 DNA double strand Ab Qn (S) [IU]/mL 0-9 [facility] Work Phone: Comment on above: Negative <5 Equivoca l 5 - 9 Positive >9 Serum or plasma calcium ana laura urement (mass/volume)on 09-21-2021 Calcium [Mass/Vol] 9.2 mg/dL 8.5-10.1 [facility] Work Phone: Serum or plasma cholesterol in HDL measurement (mass/volume)on 09-21-2021 Cholesterol in HDL [Mass/Vol] 53 mg/dL >40 [facility] Work Phone: Comment on above: The drugs N-Acetylcy steine and Metamizole may falsely depress this assay. Reference Range HDL <40 mg/dL Low HDL Cholesterol HDL >or= 60 mg/dL High HDL Cholesterol Serum or plasma cholesterol in VLDL measurement (mass/volume)on 09-21-2021 Cholesterol in VLDL [Mass/Vol] 26 mg/dL 5-40 [facility] Work Phone: Serum or plasma creatinine m easurement (mass/volume)on 09-21-2021 Creatinine [Mass/Vol] 0.85 mg/dL 0.55-1.02 [facility] Work Phone: Comment on above: The validity of the calculated GFR & GFRAA in patients over 70 years has not been determined. Clinical correlation is essential. Serum or plasma low density lipoprotein (LDL) cholesterol measurement (mass/volume)on 09-21-2021 Cholesterol in LDL [Mass/Vol] 172 mg/dL 0-130 [facility] Work Phone: Serum or plasma urea nitroge n measurement (mass/volume)on 09-21-2021 Urea nitrogen [Mass/Vol] 19 mg/dL 7-18 [facility] Work Phone: Thin prep Papanicolaou smear with manual screeningon 09-21-2021 Thin prep Papanicolaou smear with manual screening 4 5-15 [facility] Work Phone: XR Hand - bilateral PA and L ateral and Obliqueon 05-18-2021 IMPRESSION: 1. Degenerative arthrosis of both hands. Irrigation District Manager: TERESA Transcribe Date/Time: May 18 2021 12:43P Dictated by : AUGUSTINE TAYLOR MD This examination was interpreted and the report reviewed and electronically signed by: AUGUSTINE TAYLOR MD on May 18 2021 12:45PM [facility] DIVISION OF RADIOLOGY * * *Final Report* * * DATE OF EXAM: May 18 2021 12:35PM STX 5556 - XR HAND 3V PA/LAT/OBL JACLYN / PROCEDURE REASON: multiple diagnoses * * * * Physician Interpretation * * * * Bilateral hand x-rays: HISTORY: Pain TECHNIQUE: 3 views of both hands were performed. RESULT: Osseous structures are intact, without evidence of an acute fracture. On the RIGHT, joint space narrowing and osteophytosis are present at the first carpometacarpal, second and third metacarpophalangeal, first interphalangeal, the third proximal interphalangeal and the second distal interphalangeal joints. On the LEFT, joint space narrowing, osteophyte formation and subchondral cyst formation are present at the first carpocarpal joint. There is also joint space narrowing and osteophyte formation at the first interphalangeal, the second proximal interphalangeal and the second and third distal interphalangeal joints. DIVISION OF RADIOLOGY Provider, [facility] - 05/18/2021 * * *Final Report* * * DATE OF EXAM: May 18 2021 12:35PM STX 5556 - XR HAND 3V PA/LAT/OBL JACLYN / PROCEDURE REASON: multiple diagnoses * * * * Physician Interpretation * * * * Bilateral hand x-rays: HISTORY: Pain TECHNIQUE: 3 views of both hands were performed. RESULT: Osseous structures are intact, without evidence of an acute fracture. On the RIGHT, joint space narrowing and osteophytosis are present at the first carpometacarpal, second and third metacarpophalangeal, first interphalangeal, the third proximal interphalangeal and the second distal interphalangeal joints. On the LEFT, joint space narrowing, osteophyte formation and subchondral cyst formation are present at the first carpocarpal joint. There is also joint space narrowing and osteophyte formation at the first interphalangeal, the second proximal interphalangeal and the second and third distal interphalangeal joints. IMPRESSION IMPRESSION: 1. Degenerative arthrosis of both hands. Irrigation District Manager: TERESA Transcribe Date/Time: May 18 2021 12:43P Dictated by : AUGUSTINE TAYLOR MD This examination was interpreted and the report reviewed and electronically signed by: AUGUSTINE TAYLOR MD on May 18 2021 12:45PM EST [facility] Radiology Study observation (narrative) [facility] XR Hand - bilateral PA and L ateral and ObliqueOrdered By: [facility] Provider on 05-18-2021 [facility] Vital Signs Date Time Vital Sign Value Performing Clinician Facility 09-21-2024 10:55-0500 Body height 162.6 cm Jean Rodríguez MD Work Phone: [facility] 09-21-2024 10:55-0500 Body mass index (BMI) [Ratio] 29.9 kg/m2 Jean Rodríguez MD Work Phone: [facility] 09-21-2024 10:55-0500 Body weight 79 kg Jean Rodríguez MD Work Phone: [facility] 09-21-2024 10:55-0500 Diastolic blood pressure 79 mm[Hg] Jean Rodríguez MD Work Phone: [facility] 09-21-2024 10:55-0500 Heart rate 82 /min Jean Rodríguez MD Work Phone: [facility] 09-21-2024 10:55-0500 Respiratory rate 16 /min Jean Rodríguez MD Work Phone: [facility] 09-21-2024 10:55-0500 SaO2% (BldA) [Mass fraction] 98 % Jean Rodríguez MD Work Phone: [facility] 09-21-2024 10:55-0500 Systolic blood pressure 121 mm[Hg] Jean Rodríguez MD Work Phone: [facility] 01-30-2024 13:30-0400 Body height 162.6 cm Jean Rodríguez MD Work Phone: [facility] 01-30-2024 13:30-0400 Body mass index (BMI) [Ratio] 29.63 kg/m2 Jean Rodríguez MD Work Phone: [facility] 01-30-2024 13:30-0400 Body weight 78.3 kg Jean Rodríguez MD Work Phone: [facility] 01-30-2024 13:30-0400 Diastolic blood pressure 79 mm[Hg] Jean Rodríguez MD Work Phone: [facility] 01-30-2024 13:30-0400 Heart rate 79 /min Jean Rodríguez MD Work Phone: [facility] 01-30-2024 13:30-0400 Respiratory rate 16 /min Jean Rodríguez MD Work Phone: [facility] 01-30-2024 13:30-0400 SaO2% (BldA) [Mass fraction] 97 % Jean Rodríguez MD Work Phone: [facility] 01-30-2024 13:30-0400 Systolic blood pressure 130 mm[Hg] Jean Rodríguez MD Work Phone: [facility] 01-24-2023 14:13-0400 Body height 160 cm Jean Rodríguez MD Work Phone: [facility] 01-24-2023 14:13-0400 Body weight 78.4 kg Jean Rodríguez MD Work Phone: [facility] 01-24-2023 14:13-0400 Diastolic blood pressure 84 mm[Hg] Jean Rodríguez MD Work Phone: [facility] 01-24-2023 14:13-0400 Heart rate 75 /min Jean Rodríguez MD Work Phone: [facility] 01-24-2023 14:13-0400 SaO2% (BldA) [Mass fraction] 98 % Jean Rodríguez MD Work Phone: [facility] 01-24-2023 14:13-0400 Systolic blood pressure 122 mm[Hg] Jean Rodríguez MD Work Phone: [facility] 01-13-2023 14:190400 Body height 161.[address] Lilo Grullon Work Phone: [facility] 01-13-2023 14:190400 Body mass index (BMI) [Ratio] 30.3 kg/m2 Dr. Lilo Grullon Work Phone: [facility] 01-13-2023 14:190400 Body temperature 98.6 [degF] Dr. Lilo Grullon Work Phone: [facility] 01-13-2023 14:190400 Body weight 79.[address] Lilo Grullon Work Phone: [facility] 01-13-2023 14:19-0400 Diastolic blood pressure 72 mm[Hg] Dr. Lilo Grullon Work Phone: [facility] 01-13-2023 14:19-0400 Heart rate 91 /min Dr. Lilo Grullon Work Phone: [facility] 01-13-2023 14:19-0400 Respiratory rate 17 /min Dr. Lilo Grullon Work Phone: [facility] 01-13-2023 14:190400 SaO2% (BldA) [Mass fraction] 97 % Dr. Lilo Grullon Work Phone: [facility] 01-13-2023 14:19-0400 Systolic blood pressure 112 mm[Hg] Dr. Lilo Grullon Work Phone: [facility] 12-20-2022 10:230400 Body height 160 cm Jean Rodríguez MD Work Phone: [facility] 12-20-2022 10:230400 Body weight 77.6 kg Jean Rodríguez MD Work Phone: [facility] 12-20-2022 10:23-0400 Diastolic blood pressure 76 mm[Hg] Jean Rodríguez MD Work Phone: [facility] 12-20-2022 10:23-0400 Heart rate 79 /min Jean Rodríguez MD Work Phone: [facility] 12-20-2022 10:23-0400 SaO2% (BldA) [Mass fraction] 96 % Jean Rodríguez MD Work Phone: [facility] 12-20-2022 10:23-0400 Systolic blood pressure 121 mm[Hg] Jean Rodríguez MD Work Phone: [facility] 11-28-2022 15:30-0400 Diastolic blood pressure 76 mm[Hg] Dr. Lilo Grullon Work Phone: [facility] 11-28-2022 15:30-0400 Heart rate 76 /min Dr. Lilo Grullon Work Phone: [facility] 11-28-2022 15:30-0400 Respiratory rate 16 /min Dr. Lilo Grullon Work Phone: [facility] 11-28-2022 15:30-0400 SaO2% (BldA) [Mass fraction] 98 % Dr. Lilo Grullon Work Phone: [facility] 11-28-2022 15:30-0400 Systolic blood pressure 122 mm[Hg] Dr. Lilo Grullon Work Phone: [facility] 11-28-2022 13:19-0400 Body temperature 96.8 [degF] Dr. Lilo Grullon Work Phone: [facility] 11-28-2022 12:32-0400 Inhaled oxygen flow rate 6 L/min Dr. Lilo Grullon Work Phone: [facility] 11-28-2022 10:09-0400 Body height 161.[address] Lilo Grullon Work Phone: [facility] 11-28-2022 10:09-0400 Body mass index (BMI) [Ratio] 30.1 kg/m2 Dr. Lilo Grullon Work Phone: [facility] 11-28-2022 10:09-0400 Body weight 78.[address] Lilo Grullon Work Phone: [facility] 11-19-2022 13:46-0400 Body height 160.[address] Lilo Grullon Work Phone: [facility] 11-19-2022 13:46-0400 Body mass index (BMI) [Ratio] 30.7 kg/m2 Dr. Lilo Grullon Work Phone: [facility] 11-19-2022 13:46-0400 Body temperature 97.1 [degF] Dr. Lilo Grullon Work Phone: [facility] 11-19-2022 13:46-0400 Body weight 78.[address] Lilo Grullon Work Phone: [facility] 11-19-2022 13:46-0400 Diastolic blood pressure 81 mm[Hg] Dr. Lilo Grullon Work Phone: [facility] 11-19-2022 13:46-0400 Heart rate 69 /min Dr. Lilo Grullon Work Phone: [facility] 11-19-2022 13:46-0400 Respiratory rate 17 /min Dr. Lilo Grullon Work Phone: [facility] 11-19-2022 13:46-0400 SaO2% (BldA) [Mass fraction] 98 % Dr. Lilo Grullon Work Phone: [facility] 11-19-2022 13:46-0400 Systolic blood pressure 146 mm[Hg] Dr. Lilo Grullon Work Phone: [facility] 11-13-2022 14:10-0400 Body height 160 cm Jean Rodríguez MD Work Phone: [facility] 11-13-2022 14:10-0400 Body weight 77.6 kg Jean Rodríguez MD Work Phone: [facility] 11-13-2022 14:10-0400 Diastolic blood pressure 92 mm[Hg] Jean Rodríguez MD Work Phone: [facility] 11-13-2022 14:10-0400 Heart rate 79 /min Jean Rodríguez MD Work Phone: [facility] 11-13-2022 14:10-0400 SaO2% (BldA) [Mass fraction] 97 % Jean Rodríguez MD Work Phone: [facility] 11-13-2022 14:10-0400 Systolic blood pressure 135 mm[Hg] Jean Rodríguez MD Work Phone: [facility] 10-30-2022 10:56-0400 Body height 160 cm Jean Rodríguez MD Work Phone: [facility] 10-30-2022 10:56-0400 Body weight 77.56 kg Jean Rodríguez MD Work Phone: [facility] 10-30-2022 10:56-0400 Diastolic blood pressure 76 mm[Hg] Jean Rodríguez MD Work Phone: [facility] 10-30-2022 10:56-0400 Heart rate 80 /min Jean Rodríguez MD Work Phone: [facility] 10-30-2022 10:56-0400 Respiratory rate 18 /min Jean Rodríguez MD Work Phone: [facility] 10-30-2022 10:56-0400 SaO2% (BldA) [Mass fraction] 95 % Jean Rodríguez MD Work Phone: [facility] 10-30-2022 10:56-0400 Systolic blood pressure 114 mm[Hg] Jean Rodríguez MD Work Phone: [facility] 10-03-2022 10:23-0400 Body height 161.3 [address] 1 [facility] 10-03-2022 10:23-0400 Body temperature 96.8 [degF] Pst 1 [facility] 10-03-2022 10:23-0400 Body weight 75.48 kg Pst 1 [facility] 10-03-2022 10:23-0400 Diastolic blood pressure 85 mm[Hg] Pst 1 [facility] 10-03-2022 10:23-0400 Heart rate 92 /min Pst 1 [facility] 10-03-2022 10:23-0400 Respiratory rate 16 /min Pst 1 [facility] 10-03-2022 10:23-0400 SaO2% (BldA) [Mass fraction] 96 % Pst 1 [facility] 10-03-2022 10:23-0400 Systolic blood pressure 131 mm[Hg] Pst 1 [facility] 09-26-2022 14:09-0500 Body height 165.1 cm Jean Rodríguez MD Work Phone: [facility] 09-26-2022 14:09-0500 Body weight 78.9 kg Jean Rodríguez MD Work Phone: [facility] 09-26-2022 14:09-0500 Diastolic blood pressure 91 mm[Hg] Jean Rodríguez MD Work Phone: [facility] 09-26-2022 14:09-0500 Heart rate 78 /min Jean Rodríguez MD Work Phone: [facility] 09-26-2022 14:09-0500 SaO2% (BldA) [Mass fraction] 96 % Jean Rodríguez MD Work Phone: [facility] 09-26-2022 14:09-0500 Systolic blood pressure 145 mm[Hg] Jean Rodríguez MD Work Phone: [facility] 09-13-2022 10:08-0500 Body temperature 97.2 [degF] Dr. Lilo Grullon Work Phone: [facility] 09-13-2022 10:08-0500 Diastolic blood pressure 73 mm[Hg] Dr. Lilo Grullon Work Phone: [facility] 09-13-2022 10:08-0500 Heart rate 97 /min Dr. Lilo Grullon Work Phone: [facility] 09-13-2022 10:08-0500 Respiratory rate 17 /min Dr. Lilo Grullon Work Phone: [facility] 09-13-2022 10:08-0500 SaO2% (BldA) [Mass fraction] 94 % Dr. Lilo Grullon Work Phone: [facility] 09-13-2022 10:08-0500 Systolic blood pressure 109 mm[Hg] Dr. Lilo Grullon Work Phone: [facility] 09-11-2022 11:34-0500 Body height 160.[address] Lilo Grullon Work Phone: [facility] 09-11-2022 11:34-0500 Body mass index (BMI) [Ratio] 30.6 kg/m2 Dr. Lilo Grullon Work Phone: [facility] 09-11-2022 11:34-0500 Body temperature 98 [degF] Dr. Lilo Grullon Work Phone: [facility] 09-11-2022 11:34-0500 Body weight 78.[address] Lilo Grullon Work Phone: [facility] 09-11-2022 11:34-0500 Diastolic blood pressure 82 mm[Hg] Dr. Lilo Grullon Work Phone: [facility] 09-11-2022 11:34-0500 Heart rate 81 /min Dr. Lilo Grullon Work Phone: [facility] 09-11-2022 11:34-0500 Respiratory rate 18 /min Dr. Lilo Grullon Work Phone: [phone] [place] [address] 09-11-2022 11:34-0500 SaO2% (BldA) [Mass fraction] 97 % Dr. Lilo Grullon Work Phone: [facility] 09-11-2022 11:34-0500 Systolic blood pressure 130 mm[Hg] Dr. Lilo Grullon Work Phone: [facility] 09-10-2022 15:53-0500 Body temperature 97.8 [degF] Dr. Lilo Grullon Work Phone: [facility] 09-10-2022 15:53-0500 Diastolic blood pressure 90 mm[Hg] Dr. Lilo Grullon Work Phone: [facility] 09-10-2022 15:53-0500 Heart rate 95 /min Dr. Lilo Grullon Work Phone: [phone] [place] [address] 09-10-2022 15:53-0500 Respiratory rate 17 /min Dr. Lilo Grlulon Work Phone: [facility] 09-10-2022 15:53-0500 SaO2% (BldA) [Mass fraction] 96 % Dr. Lilo Grullon Work Phone: [facility] 09-10-2022 15:53-0500 Systolic blood pressure 140 mm[Hg] Dr. Lilo Grullon Work Phone: [facility] 09-10-2022 14:47-0500 Diastolic blood pressure 75 mm[Hg] Dr. Lilo Grullon Work Phone: [facility] 09-10-2022 14:47-0500 Heart rate 67 /min Dr. Lilo Grullon Work Phone: [facility] 09-10-2022 14:47-0500 Respiratory rate 18 /min Dr. Lilo Grullon Work Phone: [facility] 09-10-2022 14:47-0500 SaO2% (BldA) [Mass fraction] 98 % Dr. Lilo Grullon Work Phone: [facility] 09-10-2022 14:47-0500 Systolic blood pressure 155 mm[Hg] Dr. Lilo Grullon Work Phone: [facility] 09-10-2022 13:15-0500 Body mass index (BMI) [Ratio] 30.9 kg/m2 Dr. Lilo Grullon Work Phone: [facility] 09-10-2022 13:15-0500 Body temperature 97.3 [degF] Dr. Lilo Grullon Work Phone: [facility] 09-10-2022 13:15-0500 Body weight 79.[address] Lilo Grullon Work Phone: [facility] 09-10-2022 11:19-0500 Body mass index (BMI) [Ratio] 29.9 kg/m2 Dr. Lilo Grullon Work Phone: [facility] 09-10-2022 11:19-0500 Body weight 78.[address] Lilo Grullon Work Phone: [facility] 08-28-2022 15:27-0500 Body height 165.1 cm P[facility] 1 Work Phone: [facility] 08-28-2022 15:27-0500 Body temperature 97.39 [degF] [facility] 1 Work Phone: [facility] 08-28-2022 15:27-0500 Body weight 79.38 kg [facility] 1 Work Phone: [facility] 08-28-2022 15:27-0500 Diastolic blood pressure 72 mm[Hg] [facility] 1 Work Phone: [facility] 08-28-2022 15:27-0500 Heart rate 84 /min [facility] 1 Work Phone: [facility] 08-28-2022 15:27-0500 Respiratory rate 14 /min [facility] 1 Work Phone: [facility] 08-28-2022 15:27-0500 SaO2% (BldA) [Mass fraction] 96 % [facility] 1 Work Phone: [facility] 08-28-2022 15:27-0500 Systolic blood pressure 122 mm[Hg] [facility] 1 Work Phone: [facility] 06-19-2022 14:55-0500 Body temperature 97 [degF] Dr. Lilo Grullon Work Phone: [facility] 06-19-2022 14:55-0500 Body weight 78.[address] Lilo Grullon Work Phone: [facility] 06-19-2022 14:55-0500 Diastolic blood pressure 76 mm[Hg] Dr. Lilo Grullon Work Phone: [facility] 06-19-2022 14:55-0500 Heart rate 90 /min Dr. Lilo Grullon Work Phone: [facility] 06-19-2022 14:55-0500 Respiratory rate 17 /min Dr. Lilo Grullon Work Phone: [facility] 06-19-2022 14:55-0500 SaO2% (BldA) [Mass fraction] 94 % Dr. Lilo Grullon Work Phone: [facility] 06-19-2022 14:55-0500 Systolic blood pressure 110 mm[Hg] Dr. Lilo Grullon Work Phone: [facility] 06-19-2022 08:38-0500 Body temperature 97.3 [degF] Dr. Lilo Grullon Work Phone: [facility] 06-19-2022 08:38-0500 Body weight 76.[address] Lilo Grullon Work Phone: [facility] 06-19-2022 08:38-0500 Diastolic blood pressure 80 mm[Hg] Dr. Lilo Grullon Work Phone: [facility] 06-19-2022 08:38-0500 Heart rate 97 /min Dr. Lilo Grullon Work Phone: [facility] 06-19-2022 08:38-0500 Respiratory rate 18 /min Dr. Lilo Grullon Work Phone: [facility] 06-19-2022 08:38-0500 SaO2% (BldA) [Mass fraction] 98 % Dr. Lilo Grullon Work Phone: [facility] 06-19-2022 08:38-0500 Systolic blood pressure 110 mm[Hg] Dr. Lilo Grullon Work Phone: [facility] 04-30-2022 16:07-0400 Body height 161.[address] Lilo Grullon Work Phone: [facility] Work Phone: 04-30-2022 16:07-0400 Body mass index (BMI) [Ratio] 30.5 kg/m2 Dr. Lilo Grullon Work Phone: [facility] Work Phone: 04-30-2022 16:07-0400 Body temperature 98 [degF] Dr. Lilo Grullon Work Phone: [facility] Work Phone: 04-30-2022 16:07-0400 Body weight 79.[address] Lilo Grullon Work Phone: [facility] Work Phone: 04-30-2022 16:07-0400 Diastolic blood pressure 80 mm[Hg] Dr. Lilo Grullon Work Phone: [facility] Work Phone: 04-30-2022 16:07-0400 Heart rate 95 /min Dr. Lilo Grullon Work Phone: [facility] Work Phone: 04-30-2022 16:07-0400 Respiratory rate 16 /min Dr. Lilo Grullon Work Phone: [facility] Work Phone: 04-30-2022 16:07-0400 SaO2% (BldA) [Mass fraction] 96 % Dr. Lilo Grullon Work Phone: [facility] Work Phone: 04-30-2022 16:07-0400 Systolic blood pressure 126 mm[Hg] Dr. Lilo Grullon Work Phone: [facility] Work Phone: 03-26-2022 11:02-0400 Body height 160 cm Jean Rodríguez MD Work Phone: [facility] 03-26-2022 11:02-0400 Body weight 80.5 kg Jean Rodríguez MD Work Phone: [facility] 03-26-2022 11:02-0400 Diastolic blood pressure 70 mm[Hg] Jean Rodríguez MD Work Phone: [facility] 03-26-2022 11:02-0400 Heart rate 72 /min Jean Rodríguez MD Work Phone: [facility] 03-26-2022 11:02-0400 SaO2% (BldA) [Mass fraction] 98 % Jean Rodríguez MD Work Phone: [facility] 03-26-2022 11:02-0400 Systolic blood pressure 118 mm[Hg] Jean Rodrígeuz MD Work Phone: [facility] 02-26-2022 13:22-0400 Body height 161.[address] Lilo Grullon Work Phone: [facility] Work Phone: 02-21-2022 15:56-0400 Diastolic blood pressure 72 mm[Hg] Dr. Lilo Grullon Work Phone: [facility] Work Phone: 02-21-2022 15:56-0400 Heart rate 83 /min Dr. Lilo Grullon Work Phone: [facility] Work Phone: 02-21-2022 15:56-0400 Respiratory rate 16 /min Dr. Lilo Grullon Work Phone: [facility] Work Phone: 02-21-2022 15:56-0400 SaO2% (BldA) [Mass fraction] 92 % Dr. Lilo Grullon Work Phone: [facility] Work Phone: 02-21-2022 15:56-0400 Systolic blood pressure 122 mm[Hg] Dr. Lilo Grullon Work Phone: [facility] Work Phone: 11-01-2021 08:06-0400 Body height 161.[address] Lilo Grullon Work Phone: [facility] Work Phone: 11-01-2021 08:06-0400 Body mass index (BMI) [Ratio] 30.5 kg/m2 Dr. Lilo Grullon Work Phone: [facility] Work Phone: 11-01-2021 08:06-0400 Body temperature 98.6 [degF] Dr. Lilo Grullon Work Phone: [facility] Work Phone: 11-01-2021 08:06-0400 Body weight 79.[address] Lilo Grullon Work Phone: [facility] Work Phone: 11-01-2021 08:06-0400 Diastolic blood pressure 90 mm[Hg] Dr. Lilo Grullon Work Phone: [facility] Work Phone: 11-01-2021 08:06-0400 Heart rate 70 /min Dr. Lilo Grullon Work Phone: [facility] Work Phone: 11-01-2021 08:06-0400 Respiratory rate 16 /min Dr. Lilo Grullon Work Phone: [facility] Work Phone: 11-01-2021 08:06-0400 SaO2% (BldA) [Mass fraction] 97 % Dr. Lilo Grullon Work Phone: [facility] Work Phone: 11-01-2021 08:06-0400 Systolic blood pressure 142 mm[Hg] Dr. Lilo Grullon Work Phone: [facility] Work Phone: 11-01-2021 08:06-0400 Body height 161.[address] Lilo Grullon Work Phone: [facility] Work Phone: 11-01-2021 08:06-0400 Body mass index (BMI) [Ratio] 30.5 kg/m2 Dr. Lilo Grullon Work Phone: [facility] Work Phone: 11-01-2021 08:06-0400 Body temperature 98.6 [degF] Dr. Lilo Grullon Work Phone: [facility] Work Phone: 11-01-2021 08:06-0400 Body weight 79.[address] Lilo Grullon Work Phone: [facility] Work Phone: 11-01-2021 08:06-0400 Diastolic blood pressure 90 mm[Hg] Dr. Lilo Grullon Work Phone: [facility] Work Phone: 11-01-2021 08:06-0400 Heart rate 70 /min Dr. Lilo Grullon Work Phone: [facility] Work Phone: 11-01-2021 08:06-0400 Respiratory rate 16 /min Dr. Lilo Grullon Work Phone: [facility] Work Phone: 11-01-2021 08:06-0400 SaO2% (BldA) [Mass fraction] 97 % Dr. Lilo Grullon Work Phone: [facility] Work Phone: 11-01-2021 08:06-0400 Systolic blood pressure 142 mm[Hg] Dr. Lilo Grullon Work Phone: [facility] Work Phone: Encounters Encounter Date Encounter Type Care Provider Facility Start: 04-28-2025 ambulatory [facility] Facility:[facility] Start: 04-11-2025 ambulatory [facility] Facility:[facility] Start: 03-14-2025 End: 03-14-[address] Lilo Grullon MD Work Phone: -Laboratory [facility] Start: 03-14-2025 End: 03-14-[address] Renan Fishman MD -[facility] Start: 03-14-2025 End: 03-14-2025 ambulatory [facility] Facility:[facility] Start: 01-18-2025 Non-patient / Non-visit Dr. Lourdes Dave MD -[facility] Work Phone: Start: 11-26-2024 End: 11-26-2024 Emergency department patient visit LILO GRULLON Facility:[facility] Start: 09-21-2024 End: 09-21-2024 Patient encounter procedure Jean Rodríguez MD Work Phone: [facility] Comment on above: NPH (normal pressure hydrocephalus) (HCC ) (Primary Dx); S/P ventriculoperitoneal shunt Start: 09-21-2024 End: 09-21-2024 ambulatory JEAN RODRÍGUEZ Facility:[facility] Start: 09-14-2024 End: 09-14-2024 Telephone encounter Jean Rodríguez MD Work Phone: [facility] Comment on above: Patient Update Returning Patient's Call Start: 09-09-2024 End: 09-09-2024 Emergency department patient visit LILO LEAH GRULLON Facility:[facility] Start: 07-12-2024 Emergency department patient visit LILO LEAH JORACHAEL Facility:[facility] Start: 07-01-2024 End: 07-01-2024 ambulatory [facility] Facility:[facility] Start: 06-16-2024 End: 06-16-2024 Telephone encounter Chuyita Cortes [facility] Comment on above: Results Start: 06-15-2024 End: 06-15-2024 Telephone encounter Lynn Murdock APRN.CNP Work Phone: [facility] Comment on above: Returning Patient's Call Start: 06-15-2024 End: 06-15-2024 Emergency department patient visit LILO GRULLON Facility:[facility] Start: 06-12-2024 End: 06-13-2024 Emergency department patient visit LILO GARGRACHAEL Facility:[facility] Start: 06-03-2024 ambulatory [facility] Facility:[facility] Start: 05-19-2024 End: 05-19-2024 Emergency department patient visit LILO GARGRACHAEL Facility:[facility] Start: 03-12-2024 Emergency department patient visit LILO LEAH GARGRACHAEL Facility:[facility] Start: 02-23-2024 End: 02-23-2024 [facility] Start: 01-30-2024 End: 01-30-2024 Patient encounter procedure Jean Rodríguez MD Work Phone: [facility] Comment on above: NPH (normal pressure hydrocephalus) (HCC ) (Primary Dx); S/P ventriculoperitoneal shunt Start: 01-30-2024 End: 01-30-2024 ambulatory JEAN RODRÍGUEZ Facility:[facility] Start: 10-31-2023 End: 10-31-[address] Lilo Grullon Work Phone: [facility] Work Phone: Start: 10-31-2023 End: 10-31-[address] Lilo Grullon Work Phone: [facility]-Laboratory, [facility] Start: 09-04-2023 End: 09-04-[address] Lilo Grullon Work Phone: [facility] Work Phone: Start: 04-01-2023 End: 04-01-[address] Lilo Grullon Work Phone: [facility] Work Phone: Start: 04-01-2023 End: 04-01-[address] Lilo Grullon [facility]: Start: 03-12-2023 End: 03-12-[address] Lilo Grullon Work Phone: [facility] Work Phone: Start: 01-24-2023 End: 01-24-2023 Patient encounter procedure Jean Rodríguez MD Work Phone: [facility] Comment on above: NPH (normal pressure hydrocephalus) (HCC ) (Primary Dx); S/P ventriculoperitoneal shunt Start: 01-24-2023 End: 01-24-2023 Subsequent hospital visit by physician [facility] [place] [facility] CT SCAN [place] [employer] Comment on above: S/P ventriculoperitoneal shunt [Z98.2] Start: 01-13-2023 End: 01-13-[address] Lilo Grullon Work Phone: [facility] Work Phone: Start: 12-20-2022 End: 12-20-2022 Patient encounter procedure Jean Rodríguez MD Work Phone: [facility] Comment on above: NPH (normal pressure hydrocephalus) (HCC ) (Primary Dx); S/P ventriculoperitoneal shunt Start: 12-20-2022 End: 12-20-2022 Subsequent hospital visit by physician [facility] [place] [facility] CT SCAN [place] [employer] Comment on above: NPH (normal pressure hydrocephalus) (HCC ) [G91.2] Start: 12-19-2022 Telephone encounter Jean Rodríguez MD Work Phone: [facility] Comment on above: Appointment Start: 11-28-2022 Non-patient / Non-visit Dr. Lilo Grullon Work Phone: [facility] Start: 11-28-2022 End: 11-28-2022 Admission to same day surgery center Dr. Lilo Grullon Work Phone: [facility] Start: 11-28-2022 End: 11-28-[address] Lilo Grullon Work Phone: [facility] Work Phone: Start: 11-21-2022 End: 11-21-[address] Lilo Grullon Work Phone: [facility] Work Phone: Start: 11-21-2022 End: 11-21-2022 Patient encounter procedure [facility] Provider [facility] inic Department Start: 11-21-2022 Telephone encounter Lynn Murdock APRN.CNP Work Phone: [facility] Comment on above: Returning Patient's Call Start: 11-19-2022 Telephone encounter Lynn Murdock APRN.CNP Work Phone: [facility] Comment on above: Returning Patient's Call Start: 11-19-2022 End: 11-19-[address] Lilo Grullon Work Phone: [facility] Start: 11-13-2022 End: 11-13-2022 Patient encounter procedure Jean Rodríguez MD Work Phone: [facility] Comment on above: NPH (normal pressure hydrocephalus) (HCC ) (Primary Dx); S/P ventriculoperitoneal shunt Start: 10-30-2022 End: 10-30-2022 Subsequent hospital visit by physician [facility] [place] [facility] SCAN [place] [employer] Comment on above: Other hydrocephalus (HCC) [G91.8] Start: 10-30-2022 End: 10-30-2022 Patient encounter procedure Jean Rodríguez MD Work Phone: [facility] Comment on above: NPH (normal pressure hydrocephalus) (HCC ) (Primary Dx); S/P ventriculoperitoneal shunt Start: 10-22-2022 Orders Only Chacha Stein PA-C Work Phone: [facility] Start: 10-21-2022 Orders Only Chacha SMITH-C Work Phone: [place] [facility] Comment on above: Other hydrocephalus (HCC) (Primary Dx) Start: 10-03-2022 End: 10-03-2022 Admission to [place] [facility] Start: 10-03-2022 End: 10-03-2022 ambulatory Pst 1 Pre Surgical Testing Comment on above: Preop testing (Primary Dx); Hyperlipidemia, unspecified hyperlipidemia type; KAISER (obstructive sleep apnea); History of pulmonary embolism; Rheumatoid arthritis, involving unspecified site, unspecified whether rheumatoid factor present (HCC); NPH (normal pressure hydrocephalus) (HCC) [G91.2 (ICD-10-CM)] Start: 10-03-2022 End: 10-03-2022 Patient encounter status Pst 1 Pre Surgical Te sting Start: 10-02-2022 Patient encounter status Pst 1 [facility] Work Phone: Start: 09-27-2022 Orders Only Jean Rodríguez MD Work Phone: [facility] Comment on above: NPH (normal pressure hydrocephalus) (HCC ) (Primary Dx) Start: 09-26-2022 End: 09-26-2022 Patient encounter procedure Jean Rodríguez MD Work Phone: [facility] Comment on above: NPH (normal pressure hydrocephalus) (HCC ) (Primary Dx) NPH (normal pressure hydrocephalus) (HCC) (Primary Dx); Other hydrocephalus (HCC) Start: 09-13-2022 End: 09-13-[address] Lilo Grullon Work Phone: [facility] Start: 09-11-2022 End: 09-11-[address] Lilo Grullon Work Phone: [facility] Start: 09-10-2022 End: 09-10-[address] Lilo Grullon Work Phone: [facility] Start: 09-10-2022 End: 09-10-[address] Lilo Grullon Work Phone: [facility] Work Phone: Start: 09-10-2022 End: 09-10-[address] Lilo Grullon Work Phone: [facility] Start: 09-10-2022 End: 09-10-[address] Lilo Grullon Work Phone: [facility] Start: 09-05-2022 End: 09-05-2022 ambulatory FABY SANTANA Facility:[facility] Start: 08-28-2022 End: 08-28-2022 ambulatory FABY SANTANA Facility:[facility] Start: 08-28-2022 Encounter for other preprocedural examination LILO GRULLON [facility] Start: 08-28-2022 End: 08-28-2022 [facility] Phone: [facility] Start: 08-28-2022 End: 08-28-2022 [facility] Work Phone: Pre Anest[facility] Comment on above: Preoperative examination (Primary Dx); NPH (normal pressure hydrocephalus) (HCC); KAISER (obstructive sleep apnea); History of pulmonary embolism; Hyperlipidemia, unspecified hyperlipidemia type; Lymphocytic colitis; Gastroesophageal reflux disease, unspecified whether esophagitis present; Urinary retention Start: 08-28-2022 End: 08-28-2022 Preprocedural examination done [facility] 1 Work Phone: Pre Anesthesia Start: 08-21-2022 End: 08-21-2022 ambulatory LILO GRULLON Facility:[facility] Start: 08-09-2022 Telephone encounter Faby Santana MD Work Phone: OB/Gynecology Comment on above: Schedule Surgery Start: 08-05-2022 End: 08-05-2022 ambulatory LILO GRULLON Facility:[facility] Start: 07-31-2022 End: 07-31-2022 ambulatory LILO GRULLON OB/Gynecology Start: 07-31-2022 End: 07-31-2022 Patient encounter procedure Debi Quintero MD Work Phone: OB/Gynecology Comment on above: Intramural leiomyoma of uterus (Primary Dx) Start: 07-23-2022 Telephone encounter Priyanka Reynolds PA-C Work Phone: Urology Comment on above: Results Start: 07-19-2022 End: 07-19-2022 ambulatory LILO LEAHFREDY GRULLON Facility:[facility] Start: 07-19-2022 Telephone encounter Priyanka Reynolds PA-C Work Phone: Urology Comment on above: Patient Update Start: 07-18-2022 Telephone encounter Faby Santana MD Work Phone: OB/Gynecology Comment on above: Future Appointment Start: 06-23-2022 End: 06-27-2022 Evaluation and management of inpatient LEONELA STEIN Facility:[facility] Start: 06-19-2022 End: 06-19-[address] Lilo Grullon Work Phone: [facility] Start: 06-19-2022 End: 06-19-[address] Lilo Grullon Work Phone: [facility] Start: 06-18-[address] Lilo Grullon Work Phone: [facility]-Physical Therapy Start: 06-15-2022 End: 06-15-[address] Lilo Grullon Work Phone: [facility] Work Phone: Start: 06-15-2022 End: 06-15-[address] Lilo Grullon Work Phone: [facility]-MRI - [facility] Start: 06-14-2022 End: 06-14-[address] Lilo Grullon Work Phone: [facility] Work Phone: Start: 06-14-2022 End: 06-14-[address] Lilo Grullon Work Phone: [facility]-Nuclear Medicine, [facility] Start: 06-03-2022 End: 06-03-[address] Lilo Grullon Work Phone: [facility] Start: 05-30-2022 End: 05-30-2022 ambulatory LILO GRULLON Facility:[facility] Start: 05-30-2022 End: 05-30-2022 Subsequent hospital visit by physician Mri [facility] Wstr (I-Stat/1.5t) Work Phone: Radiology Start: 05-16-2022 End: 05-16-[address] Lilo Grullon Work Phone: [facility] Work Phone: Start: 05-16-2022 End: 05-16-[address] Lilo Grullon Work Phone: [facility]-Ultrasound, [facility] Start: 05-10-2022 End: 05-10-[address] Lilo Grullon Work Phone: [facility]-Laboratory, Specimen Start: 05-07-[address] Lilo Grullon Work Phone: [facility]-Physical Therapy Start: 04-30-2022 End: 04-30-[address] Lilo Grullon Work Phone: [facility] Start: 04-16-2022 End: 04-16-[address] Lilo Grullon Work Phone: [facility] Work Phone: Start: 04-16-2022 End: 04-16-[address] Lilo Grullon Work Phone: [facility] Start: 03-26-2022 End: 03-26-2022 Patient encounter procedure Jean Rodríguez MD Work Phone: [facility] Comment on above: Cerebral ventriculomegaly (Primary Dx) Start: 03-13-2022 End: 03-13-[address] Lilo Grullon Work Phone: [facility] Start: 02-26-2022 End: 02-26-[address] Lilo Grullon Work Phone: [facility]-Outpatient Bone Densitometry Start: 02-21-2022 End: 02-21-[address] Lilo Grullon Work Phone: [facility] Start: 11-30-2021 End: 11-30-[address] Lilo Grullon Work Phone: [facility] Start: 11-01-2021 End: 11-01-[address] Lilo Grullon Work Phone: [facility] Start: 11-01-2021 End: 11-01-[address] Lilo Grullon Work Phone: [facility] Start: 10-24-2021 End: 10-24-[address] Lilo Grullon Work Phone: [facility] Start: 10-04-2021 End: 10-04-[address] Lilo Grullon Work Phone: [facility] Start: 10-01-2021 End: 10-01-[address] Lilo Grullon Work Phone: [facility] Start: 09-21-2021 End: 09-21-[address] Lilo Grullon Work Phone: [facility] Start: 08-13-2021 End: 08-13-[address] Lilo Grullon Work Phone: [facility] Start: 05-18-2021 End: 05-18-2021 Subsequent hospital visit by physician [facility] Work Phone: Radiology Comment on above: Primary osteoarthritis of both hands [M1 9.041, M19.042] Start: 06-06-2011 Patient encounter status Jean Rodríguez MD Work Phone: [facility] Work Phone: Procedures Date Procedure Procedure Detail Performing Clinician Start: 03-14-2025 Vitamin D, 25-hydrox y measurement Dr. Lilo Grullon MD Work Phone: Comment on above: Vitamin D StatusDefi ciency: <20 ng/mL (50nmol/L)Insufficiency: 20-30 ng/mL (50-75 nmol/L)Sufficiency: 30-100 ng/mL (75-250 nmol/L)Toxicity: >100 ng/mL (>250 nmol/L) Start: 12-20-2022 Ct head/brain w/o co ntrast material Lynn Murdock APRN.BRIM SHAPER Work Phone: Start: 11-28-2022 Total cholecystectom y and exploration of common bile duct Dr. Lilo Grullon Work Phone: Start: 11-28-[address] Lilo parra Work Phone: Start: 11-28-2022 Fluoroscopic guidance Lore Grullon Work Phone: Start: 11-21-2022 Diagnostic radiograp hy of abdomen Dr. Lilo Grullon Work Phone: Start: 10-30-2022 Ct head/brain w/o co ntrast material Chacha Stein PA-C Work Phone: Start: 10-03-2022 Antibody screen Pst 1 Start: 09-10-[address] Lilo Grullon Work Phone: Start: 09-10-2022 US scan of thyroid Dr. Lilo Grullon Work Phone: Start: 07-31-2022 Us pelvic nonobstetr ic real-time image complete Faby Santana MD Work Phone: Start: 06-15-2022 MRI of cervical spine Lore rGullon Work Phone: Start: 06-14-2022 Radionuclide imaging of liver and/or biliary tract using radioactive isotope Dr. Lilo Grullon Work Phone: Start: 05-30-2022 Mri brain brain stem w/o w/contrast material [facility] Provider Start: 05-16-[address] Lilo Grullon Work Phone: Start: 02-26-2022 Dual energy X-ray absorptiometry Dr. Lilo Grullon Work Phone: Start: 02-26-2022 Screening mammography Lore Grullon Work Phone: Start: 10-01-2021 CT of head without contrast Dr. Lilo Grullon Work Phone: Start: 05-18-2021 Radex hand minimum 3 views Ranjit Giles MD Work Phone: Bacterial culture Dr. Lilo hamilton Work Phone: Investigation of tra nsfusion reaction Dr. Lilo Grullon Work Phone: Plan of Treatment Date Care Activity Detail Author Start: 07-12-2027 Diabetes Screening Diabetes Screening [facility] Start: 06-14-2027 Diabetes Screening Diabetes Screening [facility] Start: 03-28-2027 Urine microalbumin profile [facility] Start: 06-01-2026 Diabetes Screening Diabetes Screening [facility] Start: 10-28-2025 DIABETES SCREEN DIABETES SCREEN [facility] Start: 10-28-2025 Diabetes Screening Diabetes Screening [facility] Start: 10-21-2025 DIABETES SCREEN DIABETES SCREEN [facility] Start: 10-03-2025 DIABETES SCREEN DIABETES SCREEN [facility] Start: 07-04-2025 DIABETES SCREEN DIABETES SCREEN [facility] Start: 10-22-2024 DIABETES SCREEN DIABETES SCREEN [facility] Start: 09-21-2024 End: 09-21-2024 Patient encounter procedure 09/21/2024 11:30 AM EST Office Visit [facility] [address] [place] [id number] Jean Rodríguez MD [address] [place] [address] change in symptoms - appt not due until January [facility] Comment on above: change in symptoms - appt not due until January Start: 07-21-2024 Advance Directive Discussion Advance Directive Discussion [facility] Start: 07-05-2024 Shingrix Vaccine (2 of 2) Shingrix Vaccine (2 of 2) [facility] Start: 03-21-2024 Covid-19 Vaccine ( season) Covid-19 Vaccine () [facility] Start: 03-21-2024 Influenza vaccination Influenza Vaccine (#1) [facility] Start: 07-21-2023 Advance Directive Discussion Advance Directive Discussion [facility] Start: 07-21-2023 Behavioral Health Screening Behavioral Health Screening [facility] Start: 03-21-2023 Covid-19 Vaccine () Covid-19 Vaccine () [facility] Start: 03-21-2023 Influenza vaccination [facility] Start: 11-28-2022 Patient discharge [facility] Start: 10-16-2022 End: 10-26-2023 CT BRAIN WO IVCON CT BRAIN WO IVCON Radiology Routine Other hydrocephalus (HCC) Expected: 10/16/2022, Expires: 10/26/2023 Work Phone: Comment on above: Expected: 10/16/2022, Expires: Start: 07-21-2022 ADVANCE DIRECTIVE DISCUSSION ADVANCE DIRECTIVE DISCUSSION [facility] Start: 07-21-2022 DEPRESSION ASSESSMENT DEPRESSION ASSESSMENT [facility] Start: 07-19-2022 End: 07-18-2023 PELVIC US WHI PELVIC US WHI Anc Imaging Routine Abnormal CT scan Expected: 07/19/2022, Expires: 07/18/2023 Work Phone: Comment on above: Expected: 07/19/2022, Expires: Start: 05-01-2022 Patient referral [facility] Work Phone: Start: 03-21-2022 Influenza vaccination INFLUENZA (#1) [facility] Start: 11-01-2021 Patient referral [facility] Work Phone: Start: 07-21-2021 ADVANCE DIRECTIVE DISCUSSION ADVANCE DIRECTIVE DISCUSSION [facility] Start: 02-18-2021 COVID-19 VACCINE (4 - Booster) COVID-19 VACCINE (4 - Booster) [facility] Start: 12-14-2020 COVID-19 VACCINE (4 - Booster) COVID-19 VACCINE (4 - Booster) [facility] Start: 12-14-2020 COVID-19 VACCINE (5 - Booster for Moderna series) COVID-19 VACCINE (5 - Booster for Moderna series) [facility] Start: 12-14-2020 COVID-19 VACCINE (5 - Booster) COVID-19 VACCINE (5 - Booster) [facility] Start: 12-14-2020 COVID-19 VACCINE (5 - Moderna series) COVID-19 VACCINE (5 - Moderna series) [facility] Start: 09-08-2019 Pneumococcal Vaccine: 50+ (2 of 2 - PPSV23) Pneumococcal Vaccine: 50+ (2 of 2 - PPSV23) [facility] Start: 09-08-2019 Pneumococcal Vaccine: 65+ (2 - PPSV23 or PCV20) Pneumococcal Vaccine: 65+ (2 - PPSV23 or PCV20) [facility] Start: 09-08-2019 Pneumococcal Vaccine: 65+ (2 of 2 - PPSV23 or PCV20) Pneumococcal Vaccine: 65+ (2 of 2 - PPSV23 or PCV20) [facility] Start: 09-08-2019 PNEUMOCOCCAL: 65+ (2 - PPSV23 if available, else PCV20) PNEUMOCOCCAL: 65+ (2 - PPSV23 if available, else PCV20) [facility] Start: 09-08-2019 PNEUMOCOCCAL: 65+ (2 - PPSV23 or PCV20) PNEUMOCOCCAL: 65+ (2 - PPSV23 or PCV20) [facility] Start: 2018 RSV Vaccine (1 - 1-dose 75+ series) RSV Vaccine (1 - 1-dose 75+ series) [facility] Start: 2008 BONE DENSITY BONE DENSITY [facility] Start: 2008 Bone Density Screening Bone Density Screening [facility] Start: 2008 PNEUMOCOCCAL: 65+ (1 - PCV) PNEUMOCOCCAL: 65+ (1 - PCV) [facility] Start: 2008 Screening for osteoporosis Bone Density Screening [facility] Start: 2003 RSV Vaccine (1 - 1-dose 60+ series) RSV Vaccine (1 - 1-dose 60+ series) [facility] Start: 1993 SHINGRIX VACCINE (1 of 2) SHINGRIX VACCINE (1 of 2) [facility] Start: 1962 Urine microalbumin profile DTAP,TDAP,TD (1 - Tdap) [facility] Start: 1961 Anxiety Screening Anxiety Screening [facility] Start: 1961 Depression Screening Depression Screening [facility] Start: 1961 HEPATITIS C SCREENING HEPATITIS C SCREENING [facility] Start: 1955 Adult depression screening assessment DEPRESSION SCREENING [facility] End: 11-20-2023 CT BRAIN WO IVCON CT BRAIN WO IVCON Radiology Routine Other hydrocephalus (HCC) 1 Occurrences starting 10/21/2022 until 11/20/2023 Work Phone: Comment on above: 1 Occurrences starting 10/21/2022 until 11/20/2023 End: 12-13-2023 CT BRAIN WO IVCON CT BRAIN WO IVCON Radiology Routine NPH (normal pressure hydrocephalus) ([facility]) S/P ventriculoperitoneal shunt 1 Occurrences starting 11/13/2022 until 12/13/2023 Work Phone: Comment on above: 1 Occurrences starting 11/13/2022 until 12/13/[address]23 CT BRAIN WO IVCON CT BRAIN WO IV CON Radiology Routine S/P ventriculoperitoneal shunt NPH (normal pressure hydrocephalus) ([facility]) 01/24/2023 2:03 PM EDT Work Phone: MR Brain WO and W contrast IV [facility] Work Phone: MR Cervical spine [facility] Work Phone: MR Lumbar spine [facility] Work Phone: MR Lumbar spine WO and W contrast IV [facility] Work Phone: MRA Head vessels WO contrast [facility] Work Phone: Patient Education RAD RN Lumbar Puncture Having [facility] Work Phone: Patient referral [facility] Work Phone: [facility] Immunizations Immunization Date Immunization Notes Care Provider [facility] 08-17-2021 influenza, injectabl e, quadrivalent, contains preservative Jean Rodríguez MD Work Phone: [facility] 08-17-2021 influenza virus vaccine, unspecified formulation Mri (I-Stat/1.5t) Work Phone: [facility] 10-19-2020 COVID-19 original vaccine, full dose, monovalent (MODERNA) Jean Rodríguez MD Work Phone: [facility] 10-15-2020 COVID-19 original vaccine, full dose, monovalent (MODERNA) Jean Rodríguez MD Work Phone: [facility] 10-04-2020 Covid (Moderna) Dr. Lilo green Work Phone: [facility] 09-22-2020 COVID-19 original vaccine, full dose, monovalent (MODERNA) Jean Rodríguez MD Work Phone: [facility] 05-12-2020 influenza, injectabl e, quadrivalent, contains preservative Jean Rodríguez MD Work Phone: [facility] 05-06-2019 Seasonal, quadrivale nt, recombinant, injectable influenza vaccine, preservative free Jean Rodríguez MD Work Phone: [facility] 09-08-2018 pneumococcal conjuga te vaccine, 13 valent Jean Rodríguez MD Work Phone: [facility] 04-17-2018 influenza, injectabl e, quadrivalent, preservative free Dr. Lilo Grullon Work Phone: [facility] 04-17-2018 influenza, seasonal, injectable Dr. Lilo Grullon Work Phone: [facility] 04-20-[address] Lilo Grullon Work Phone: [facility] [facility] 04-20-2017 influenza, seasonal, injectable, preservative free Jean Rodríguez MD Work Phone: [facility] 03-28-2017 tetanus toxoid, redu dave diphtheria toxoid, and acellular pertussis vaccine, adsorbed Dr. Lilo Grullon Work Phone: [facility] 03-18-2017 influenza, high dose seasonal, preservative-free Jean Rodríguez MD Work Phone: [facility] 08-22-2015 influenza, seasonal, injectable Jean Rodríguez MD Work Phone: [facility] 06-06-2011 influenza virus vaccine, unspecified formulation Jean Rodríguez MD Work Phone: [facility] Work Phone: Payers Date Payer Category Payer Medicare (Managed Care) [employer] [id number] 2024 Self-pay [id number] 2024 Unknown [id number] 2023 Private Health Insurance [id number] 2021 Private Health Insurance [id number] 2020 Private Health Insurance [facility] AARP SUPPLEMENT [id number] 2020-2021 [id number] [place] [address] Indemnity [id number] 2008 Medicare [id number] Medicare [id number] Unknown [id number] Unknown [id number] Unknown [id number] Unknown [id number] Unknown [id number] Unknown [id number] Unknown [id number] Social History Date Type Detail Facility Start: 10-04-2021 End: 09-04-2023 Tobacco smoking status KSIS Unknown if ever smoked [facility] Start: 12-29-2020 None [facility] Start: 12-29-2020 Alone [facility] Start: 12-29-2020 Non-smoker [facility] Start: 1945 Sex Assigned At Female W [facility] Start: 06-06-2011 End: 09-04-2023 Tobacco smoking status NHIS Never smoked tobacco [facility] Work Phone: Start: 06-06-2011 Tobacco use and exposure Smoke less tobacco non-user [facility] Work Phone: Start: 03-26-2022 End: 09-21-2024 Alcohol intake Current non-drinker of alcohol (finding) [facility] Start: 1945 Sex Assigned At Not on file C [facility] Start: 04-18-2021 End: 03-26-2022 Exposure to SARS-CoV-2 (event) Not sure [facility] Start: 06-24-2022 End: 10-17-2022 History SDOH Financial 5 [facility] Start: 06-24-2022 End: 10-17-2022 History SDOH Food Worry 1 [facility] Start: 06-24-2022 End: 10-25-2022 History SDOH Transport Med 2 [facility] Start: 06-12-2022 End: 06-22-2022 Exposure to SARS-CoV-2 (event) Yes [facility] Start: 10-25-2022 History SDOH Financial 4 [facility] Start: 01-24-2023 End: 05-20-2024 History of Social function [facility] Start: 01-24-2023 End: 05-20-2024 Tobacco use panel [facility] How hard is it for y ou to pay for the very basics like food, housing, medical care, and heating Not very hard [facility] (I/We) worried job er (my/our) food would run out before (I/we) got money to buy more. Never true [facility] In the past 12 month s, has lack of transportation kept you from medical appointments or from getting medications? No [facility] In the past 12 month s, was there a time when you were not able to pay the mortgage or rent on time? No [facility] NEGATED: Highlighted row [facility] Medical Equipment Procedure Code Equipment Code Equipment Origin al Text Equipment Identifier Dates Total cholecystectomy with exploration of common bile duct Ligation clip, synthetic polymer, non-bioabsorbable [id number] FDA Start: 11-28-2022 Total cholecystectomy with exploration of common bile duct Ligation clip, synthetic polymer, non-bioabsorbable [id number] FDA Start: 11-28-2022 Minimally invasive total replacement of hip joint by anterior approach Acetabular Shell FDA Start: 10-14-2018 Minimally invasive total replacement of hip joint by anterior approach Femoral Head FDA Start: 10-14-2018 Minimally invasive total replacement of hip joint by anterior approach Hip Stem 127 FDA Start: 10-14-2018 Minimally invasive total replacement of hip joint by anterior approach Polyethylene Insert FDA Start: 10-14-2018 Minimally invasive total replacement of hip joint by anterior approach Acetabular Shell FDA Start: 10-14-2018 Minimally invasive total replacement of hip joint by anterior approach Femoral Head FDA Start: 10-14-2018 Minimally invasive total replacement of hip joint by anterior approach Hip Stem 127 FDA Start: 10-14-2018 Minimally invasive total replacement of hip joint by anterior approach Polyethylene Insert FDA Start: 10-14-2018 Minimally invasive total replacement of hip joint by anterior approach Acetabular Shell FDA Start: 10-14-2018 Minimally invasive total replacement of hip joint by anterior approach Femoral Head FDA Start: 10-14-2018 Minimally invasive total replacement of hip joint by anterior approach Hip Stem 127 FDA Start: 10-14-2018 Minimally invasive total replacement of hip joint by anterior approach Polyethylene Insert FDA Start: 10-14-2018 Minimally invasive total replacement of hip joint by anterior approach Acetabular Shell FDA Start: 10-14-2018 Minimally invasive total replacement of hip joint by anterior approach Femoral Head FDA Start: 10-14-2018 Minimally invasive total replacement of hip joint by anterior approach Hip Stem 127 FDA Start: 10-14-2018 Minimally invasive total replacement of hip joint by anterior approach Polyethylene Insert FDA Start: 10-14-2018 Minimally invasive total replacement of hip joint by anterior approach Acetabular Shell FDA Start: 10-14-2018 Minimally invasive total replacement of hip joint by anterior approach Femoral Head FDA Start: 10-14-2018 Minimally invasive total replacement of hip joint by anterior approach Hip Stem 127 FDA Start: 10-14-2018 Minimally invasive total replacement of hip joint by anterior approach Polyethylene Insert FDA Start: 10-14-2018 Minimally invasive total replacement of hip joint by anterior approach Acetabular Shell FDA Start: 10-14-2018 Minimally invasive total replacement of hip joint by anterior approach Femoral Head FDA Start: 10-14-2018 Minimally invasive total replacement of hip joint by anterior approach Hip Stem 127 FDA Start: 10-14-2018 Minimally invasive total replacement of hip joint by anterior approach Polyethylene Insert FDA Start: 10-14-2018 Minimally invasive total replacement of hip joint by anterior approach Acetabular Shell FDA Start: 10-14-2018 Minimally invasive total replacement of hip joint by anterior approach Femoral Head FDA Start: 10-14-2018 Minimally invasive total replacement of hip joint by anterior approach Hip Stem 127 FDA Start: 10-14-2018 Minimally invasive total replacement of hip joint by anterior approach Polyethylene Insert FDA Start: 10-14-2018 Minimally invasive total replacement of hip joint by anterior approach Acetabular Shell FDA Start: 10-14-2018 Minimally invasive total replacement of hip joint by anterior approach Femoral Head FDA Start: 10-14-2018 Minimally invasive total replacement of hip joint by anterior approach Hip Stem 127 FDA Start: 10-14-2018 Minimally invasive total replacement of hip joint by anterior approach Polyethylene Insert FDA Start: 10-14-2018 Minimally invasive total replacement of hip joint by anterior approach Acetabular Shell FDA Start: 10-14-2018 Minimally invasive total replacement of hip joint by anterior approach Femoral Head FDA Start: 10-14-2018 Minimally invasive total replacement of hip joint by anterior approach Hip Stem 127 FDA Start: 10-14-2018 Minimally invasive total replacement of hip joint by anterior approach Polyethylene Insert FDA Start: 10-14-2018 Minimally invasive total replacement of hip joint by anterior approach Acetabular Shell FDA Start: 10-14-2018 Minimally invasive total replacement of hip joint by anterior approach Femoral Head FDA Start: 10-14-2018 Minimally invasive total replacement of hip joint by anterior approach Hip Stem 127 FDA Start: 10-14-2018 Minimally invasive total replacement of hip joint by anterior approach Polyethylene Insert FDA Start: 10-14-2018 Minimally invasive total replacement of hip joint by anterior approach Acetabular Shell FDA Start: 10-14-2018 Minimally invasive total replacement of hip joint by anterior approach Femoral Head FDA Start: 10-14-2018 Minimally invasive total replacement of hip joint by anterior approach Hip Stem 127 FDA Start: 10-14-2018 Minimally invasive total replacement of hip joint by anterior approach Polyethylene Insert FDA Start: 10-14-2018 Minimally invasive total replacement of hip joint by anterior approach Acetabular Shell FDA Start: 10-14-2018 Minimally invasive total replacement of hip joint by anterior approach Femoral Head FDA Start: 10-14-2018 Minimally invasive total replacement of hip joint by anterior approach Hip Stem 127 FDA Start: 10-14-2018 Minimally invasive total replacement of hip joint by anterior approach Polyethylene Insert FDA Start: 10-14-2018 Minimally invasive total replacement of hip joint by anterior approach Acetabular Shell FDA Start: 10-14-2018 Minimally invasive total replacement of hip joint by anterior approach Femoral Head FDA Start: 10-14-2018 Minimally invasive total replacement of hip joint by anterior approach Hip Stem 127 FDA Start: 10-14-2018 Minimally invasive total replacement of hip joint by anterior approach Polyethylene Insert FDA Start: 10-14-2018 Minimally invasive total replacement of hip joint by anterior approach Acetabular Shell FDA Start: 10-14-2018 Minimally invasive total replacement of hip joint by anterior approach Femoral Head FDA Start: 10-14-2018 Minimally invasive total replacement of hip joint by anterior approach Hip Stem 127 FDA Start: 10-14-2018 Minimally invasive total replacement of hip joint by anterior approach Polyethylene Insert FDA Start: 10-14-2018 Kit Catheter 120 cm Peritoneal Ventricular Shunt Codcharlotte Bactiseal 14cm - [id number] Start: 10-16-2022 Valve Shunt Programmable Inline Stylet Kalpesh Brown Stainless Steel Sterile - [id number] Start: 10-16-2022 Goals Date Patient Goal Desired Activity /State Functional Status Date Assessment Result Facility 10-28-2022 Are you deaf, or do you have serious difficulty hearing No 10/28/2022 6:29 PM EDT Lilo Sorenson RN No [facility] 10-28-2022 Are you blind, or do you have serious difficulty seeing, even when wearing glasses No 10/28/2022 6:29 PM EDT Lilo Sorenson RN No [facility] 10-28-2022 Do you have serious difficulty walking or climbing stairs No 10/28/2022 6:29 PM EDT Lilo Sorenson RN No [facility] 10-28-2022 Do you have difficul ty dressing or bathing No 10/28/2022 6:29 PM EDT Lilo Sorenosn RN No [facility] 10-28-2022 Because of a physica l, mental, or emotional condition, do you have difficulty doing errands alone such as visiting a physician's office or shopping Yes 10/28/2022 6:29 PM EDT Lilo Sorenson RN Yes [facility] Mental Status Date Assessment Result Facility 11-28-2022 Cognitive function Level Of Cons ciousness Appropriate;Drowsy [facility] Work Phone: 10-28-2022 Because of a physica l, mental, or emotional condition, do you have serious difficulty concentrating, remembering, or making decisions Yes 10/28/2022 6:29 PM EDT Lilo Sorenson RN Yes [facility] 09-10-2022 Cognitive function Awake;Alert;Appropriat e [facility] Work Phone: Clinical Notes 05-18-2021 to 11-26-2024 Jean Rodríguez MD - 09/21/2024 11:30 AM ESTTelephone Encounter - Lynn Murdock APRN.DILLON - 09/14/2024 3:02 PM ESTTelephone Encounter - Lynn Murdock APRN.CNP - 09/14/2024 3:02 PM EST Note Date & Type Note Facility 11-26-2024 Note HNO ID: [id number] Author: ELLEN CANALES RT(R) Service: ? Author Type: Technologist Type: Progress Notes Filed: 11/26/2024 16:13 Note Text: Radiology Service Progress Note PATIENT NAME: Christian Suggs DATE OF SERVICE: November 26, 2024 TIME: 4:12 PM PATIENT IDENTITY VERIFICATION COMPLETED USING TWO (2) IDENTIFIERS: Name and Date of confirmed by patient verbally. FALL SCREENING: Has the patient had 2 falls in the last year or 1 fall with injury or currently using an Ambulatory Assistive Device (Walker, Cane, Wheelchair, Crutches, etc.)? Emergency Room Patient: Screened in ED PATIENT GENDER DATA: Assigned female at . status: : No status: NO. PATIENT RELEVANT IMPLANT DATA REVIEWED: Yes PATIENT PRESENTS WITH AN IMPLANTABLE OR ATTACHED VERSE WRITER: No RADIOLOGY DEPARTMENT: Ultrasound PERIPHERAL IV DATA: Not applicable SIGNED BY: Ellen Canales RDMS, RVT November 26, 2024 4:12 PM [facility] 09-21-2024 History of Present illness Narrative Images from the original note were not included. NEUROSURGERY FOLLOW UP OFFICE NOTE Dr. Jean Rodríguez MD, FACS Date of visit: September 21, 2024 Patient Name: Ms.Tuula [place] Suggs Date of : 1945 Current Age: [age] year old Sex: female MRN/E# [id number] Last Office Visit: January 30, 2024 CHIEF COMPLAINT: Patient presents with: Established Patient SUBJECTIVE: The patient presents as a follow up without new imaging for evaluation. This is a 79-year-old female with a PMHx of arthritis, melanoma (right thigh), rotator cuff tear and NPH who was seen for consult on 03/05/2022 as a referral from the [place] emergency department. After sustaining a fall while working in her garden CT brain was obtained and was concerning for ventriculomegaly and work-up for possible NPH (normal pressure hydrocephalus) was recommended. Evaluation and additional imaging was obtained and there was no evidence of a cerebral mass, lesion or ventricular size being out of proportion. She was referred to neurology for complete evaluation to include possible dementia and/or NPH. Once work-up was completed it was determined that she would benefit from a ventriculoperitoneal shunt and this was agreed to and completed as noted below. Since then she has been seen routinely in the office for evaluation with shunt adjustments and hadn gradually improved. In December 2022 she and her felt that her memory had not gotten much better. They both agreed that her gait had improved. Neurologically she remained intact on exam without focal deficit with a slightly compensated gait. CT brain was reviewed and showed no change in the size of the ventricular system or the position of the shunt. Recommendation was to adjust the shunt setting from 120 to 110 and follow-up in [address] brain. Since then she has been seen routinely for evaluation with imaging and has over all done well. In March 2023 she presented after a fall in her kitchen while cleaning the floor causing her to strike her head. She denied any headache or new neurological changes. She reported continued fatigue, balance issues and memory deficits. She felt that her symptoms were better immediately following placement of DESIGNER/WRITER shunt and since then had not improved. Shunt valve settings remained at 110. Neurologically she was intact on exam without focal deficit with the exception of a compensated gait for which she utilized a cane as an assistive device. CT head was obtained and reviewed given her recent fall and use of aspirin. The ventricular system appeared stable without change in size and there was no evidence of subdural hematoma. It was discussed with her and her family that the shunt was functioning well and there was no indication to adjust the setting. Recommendation was that she participate in a course of physical therapy for gait, follow-up with neurology to see if she would benefit from medications for her memory and follow-up with neurosurgery in 1 year for a routine visit. She was last seen in the office in January 2024 and reported that she was overall doing well. She denied any new or concerning issues since last visit. Gait was improved compared to preoperative status. She denied urinary incontinence. She continued with some memory deficits. Shunt site was intact. Recommendation was to follow up in one year for a routine evaluation. Prior to her one year follow up, she contacted the office with reports of not feeling right. She had presented to the ED twice. She complained of head pressure without headache and her daughter said that she had misused a few words. Recommendation was to present to the office for a shunt evaluation prompting her visit today. She states she has developed a pressure on the left side of her head. She wakes up with the pressure and it goes away when she becomes active. She thinks her memory has worsened and she continues with urinary incontinence. She presents for evaluation and plan of care. SYMPTOMS: Decreased balance, decreased memory, urinary frequency PREVIOUS CONSERVATIVE TREATMENTS: None SURGICAL RISK: Smoker: Never Diabetic: No Anticoagulants / Antiplatelets: Low dose ASA 81 mg daily Occupation: N/A PREVIOUS NEUROSURGERY: SURGERY#1: Creation of ventriculoperitoneal shunt system programmable Codman valve set at 140 on 10/16/[address] Rodríguez. *Shunt valve setting decreased to 130 on 10/21/22. *Shunt valve setting decreased to 120 on 10/30/2022 *Shunt valve setting decreased to 110 on 12/20/22 PAIN EVALUATION 09/21/2024 1054 Pain Level: 6 Pain Location: Head left side of head Description: Pressure Duration Amount of Time: 3 Duration Units: Weeks Frequency: Continuous PAST MEDICAL HISTORY Diagnosis Date Allergic rhinitis Arthritis Back C. difficile enteritis History of back surgery 07/21/2011 HLD (hyperlipidemia) Lymphocytic colitis Melanoma (HCC) right thigh NPH (normal pressure hydrocephalus) (HCC) [facility] (obstructive sleep apnea) Rotator cuff tear arthropathy of right shoulder 07/21/2012 Urinary retention PAST SURGICAL HISTORY Procedure Laterality Date ARTHRP KNE CONDYLE&PLATU MEDIAL&LAT COMPARTMENTS Right 10/2014 CARPAL TUNNEL 2009 bilateral CHOLECYSTECTOMY HX N/A COLONOSCOPY FLX DX W/COLLJ SPEC WHEN PFRMD 02/02/2016 JOINT REPLACEMENT HX ORTHOPEDICS SURGERY HX PAST SURGICAL HISTORY OF 1999 bladder repair PAST SURGICAL HISTORY OF 2007 melanoma removal FAMILY HISTORY Problem Relation Age of Onset Heart Father late in life Breast Cancer Maternal Aunt Diabetes Other none Colon Cancer Other none Coronary Artery Disease Other none ALLERGIES Allergen Reactions Hydrocodone Bitartr* GI Upset Mesalamine Myalgia Oxycodone GI Upset Flagyl [Nitroimidaz* Other: See Comments metal mouth Scopolamine Other: See Comments Current Outpatient Medications Medication Sig Dispense Refill triamcinolone acetonide (KENALOG) 0.1 % cream aspirin, enteric coated (ASPIRIN, ENTERIC COATED) 81 mg EC tablet Take 1 tablet by mouth once daily. To begin on 11/04/22 CALCIUM-VITAMIN D3 ORAL Take 1 capsule by mouth once daily. biotin 1 mg cap Take 1 capsule by mouth once daily. Melatonin 5 mg cap Take 1 capsule by mouth daily at bedtime. rosuvastatin (CRESTOR) 5 mg tablet Take 1 tablet by mouth once daily. budesonide, enteric coated (ENTOCORT EC) 3 mg 24 hr capsule Take 2 capsules by mouth daily before breakfast. Resume after Dexamethasone completed omeprazole (PRILOSEC) 40 mg capsule Take 40 mg by mouth once daily. DULoxetine (CYMBALTA) 30 mg capsule Take 1 capsule by mouth daily at bedtime. multivitamin ORAL tablet Take 1 tablet by mouth once daily. 0 No current facility-administered medications for this visit. REVIEW OF SYSTEMS: Review of Systems Constitutional: Negative for chills, diaphoresis (Negative for night sweats.) and fever. HENT: Negative for ear discharge and rhinorrhea. Eyes: Negative for discharge. Respiratory: Negative for cough, shortness of breath and wheezing. Cardiovascular: Negative for chest pain, palpitations and leg swelling. Gastrointestinal: Negative for constipation, diarrhea, nausea and vomiting. Endocrine: Negative for cold intolerance and heat intolerance. Genitourinary: Negative for frequency. Negative for urinary incontinence and urinary retention. Musculoskeletal: Negative for back pain, joint swelling, myalgias and neck pain. Skin: Negative for rash (Negative for hives and skin lesions.). Allergic/Immunologic: Negative for environmental allergies and food allergies. Negative for contact allergy, seasonal allergies. Neurological: Negative for dizziness, seizures, syncope, weakness, light-headedness, numbness (Negative for numbness in extremities.) and headaches. Hematological: Does not bruise/bleed easily. Psychiatric/Behavioral: The patient is not nervous/anxious. Negative for depression. OBJECTIVE: BP 121/79 Pulse 82 Resp 16 Ht 5' 4 (1.63m) Wt 174 lb 2.6 oz (79.0kg) SpO2 98% BMI 29.88 kg/(m^2). PHYSICAL EXAM: Mental State : Alert. Attention span and concentration normal for patient's age. Speech normal, fluent. No receptive or expressive speech deficit. Recent and remote memory normal. Orientation : Oriented to person, place and time. Higher Cortical Function : Intact speech and language. Comprehension normal. Fund of knowledge intact for pt level of education. Cranial Nerves : II: No visual field cut, no blurring. Makes and sustains eye contact. III, IV, : No double vision or lid drooping. Pupils equal and reactive to light. Extraocular muscles intact. No nystagmus. V: Normal sensation on the face, normal jaw movements. VII: No paresis on either side. VIII: No gross hearing deficit IX: Good and equal shoulder shrugs. XII: Tongue midline, no fasciculations. Sensory: SILT. Normal Sensation in bilateral upper and bilateral lower extremities to touch and noxious stimuli. Motor: Normal muscle tone and bulk. No spasticity, tremor or uncontrollable movements. Strength: Upper Extremities : R L Deltoid 5/5 5/5 Biceps 5/5 5/5 Triceps 5/5 5/5 Wrist Ext 5/5 5/5 Wrist Flx 5/5 5/5 Hand Int 5/5 5/5 Lower Extremities : Hip Flexors 5/5 5/5 Hip Extensors 5/5 5/5 Hip Abductors 5/5 5/5 Straight leg Neg Neg Ankle dorsiflex 5/5 5/5 Ankle Plantar 5/5 5/5 Reflexes : Biceps 2+ 2+ Triceps 2+ 2+ Wrist 2+ 2+ Patellar 2+ 2+ Achilles 2+ 2+ Cerebellar Function : Normal finger to nose. Normal rapid alternating movements. No ataxia. Gait and Station: Normal gait. No assistive device usage. Pulmonary: Lungs without cough, audible wheeze. Respirations unlabored. IMAGING: CT Brain WO IVCON performed on 09/09/24 demonstrates: IMPRESSION: No significant change compared to 06/14/2024. Stable ventriculostomy catheter shunt positioning with unchanged mild ventricular prominence. XR Skull 2V performed on 09/09/24 demonstrates: IMPRESSION (COMBINED): Shunt catheter appears intact. Additional findings as described above. ASSESSMENT/PLAN: 1. NPH (normal pressure hydrocephalus) ([facility]) - ICD9: 331.5, ICD10: G91.2 (primary diagnosis) Patient with a shunted normal pressure hydrocephalus 2022 whose had some concerns lately for which an appointment was made for her to be evaluated. She wakes up with pressure sensation in the left temporal area that clears on its own. She has fallen a few times and was concerned that this disrupted her shunt. She underwent a CT scan that showed no change in the ventricular size compared to prior scan. She had no disruption of the shunt catheter. She was told by her hairdresser that the shunt site under the scalp has moved. On my examination I did not see any change in the sites where the shunt is including the incisions. There is no fluid accumulation or dehiscence of the incision sites or redness or tenderness. The shunt valve compresses and releases normally. Her gait is disturbed but mostly because of her knees as she has bad knees she says. Her complaints and examination do not indicate shunt malfunction. No need for adjusting the shunt. The CT scan does not show evidence of shunt disruption or intracranial bleed secondary to her trauma to require that. Will continue to follow her on an annual basis. 2. S/P ventriculoperitoneal shunt - ICD9: V45.2, ICD10: Z98.2 Jean Rodríguez MD FOLLOW UP: Return in about 1 year (around 09/21/2025) for routine visit. Please Note: This note has been partially generated using [employer], a speech recognition software program, and may contain errors including punctuation, grammar, spelling, gender, and inappropriate words or phrases that pertain to the system. documented in this encounter [facility] 09-21-2024 Note HNO ID: [id number] Author: JEAN RODRÍGUEZ MD Service: ? Author Type: Physician Type: Progress Notes Filed: 09/21/2024 11:24 Note Text: NEUROSURGERY FOLLOW UP OFFICE NOTE Dr. Jean Rodríguez MD, [facility] Date of visit: September 21, 2024 Patient Name: Ms.Tuula [place] Suggs Date of : 1945 Current Age: [age] year old Sex: female MRN/E# [id number] Last Office Visit: January 30, 2024 CHIEF COMPLAINT: Patient presents with: Established Patient SUBJECTIVE: The patient presents as a follow up without new imaging for evaluation. This is a 79-year-old female with a PMHx of arthritis, melanoma (right thigh), rotator cuff tear and NPH who was seen for consult on 03/05/2022 as a referral from the [place] emergency department. After sustaining a fall while working in her garden CT brain was obtained and was concerning for ventriculomegaly and work-up for possible NPH (normal pressure hydrocephalus) was recommended. Evaluation and additional imaging was obtained and there was no evidence of a cerebral mass, lesion or ventricular size being out of proportion. She was referred to neurology for complete evaluation to include possible dementia and/or NPH. Oncework-up was completed it was determined that she would benefit from a ventriculoperitoneal shunt and this was agreed to and completed as noted below. Since then she has been seen routinely in the office for evaluation with shunt adjustments and hadn gradually improved. In December 2022 she and her felt that her memory had not gotten much better. They both agreed that her gait had improved. Neurologically she remained intact on exam without focal deficit with a slightly compensated gait. CT brain was reviewed and showed no change in the size of the ventricular system or the position of the shunt. Recommendation was to adjust the shunt setting from 120 to 110 and follow-up in [address] brain. Since then she has been seen routinely for evaluation with imaging and has over all done well. In March 2023 she presented after a fall in her kitchen while cleaning the floor causing her to strike her head. She denied any headache or new neurological changes. She reported continued fatigue, balance issues and memory deficits. She felt that her symptoms were better immediately following placement of DESIGNER/WRITER shunt and since then had not improved. Shunt valve settings remained at 110. Neurologically she was intact on exam without focal deficit with the exception of a compensated gait for which she utilized a cane as an assistive device. CT head was obtained and reviewed given her recent fall and use of aspirin. The ventricular system appeared stable without change in size and there was no evidence of subdural hematoma. It was discussed with her and her family that the shunt was functioning well and there was no indication to adjust the setting. Recommendation was that she participate in a course of physical therapy for gait, follow-up with neurology to see if she would benefit from medications for her memory and follow-up with neurosurgery in 1 year for a routine visit. She was last seen in the office in January 2024 and reported that she was overall doing well. She denied any new or concerning issues since last visit. Gait was improved compared to preoperative status. She denied urinary incontinence. She continued with some memory deficits. Shunt site was intact. Recommendation was to follow up in one year for a routine evaluation. Prior to her one year follow up, she contacted the office with reports of not feeling right. She had presented to the ED twice. She complained of head pressure without headache and her daughter said that she had misused a few words. Recommendation was to present to the office for a shunt evaluation prompting her visit today. She states she has developed a pressure on the left side of her head. She wakes up with the pressure and it goes away when she becomes active. She thinks her memory has worsened and she continues with urinary incontinence. She presents for evaluation and plan of care. SYMPTOMS: Decreased balance, decreased memory, urinary frequency PREVIOUS CONSERVATIVE TREATMENTS: None SURGICAL RISK: Smoker: Never Diabetic: No Anticoagulants / Antiplatelets: Low dose ASA 81 mg daily Occupation: N/A PREVIOUS NEUROSURGERY: SURGERY#1: Creation of ventriculoperitoneal shunt system programmable Codman valve set at 140 on 10/16/[address] Rodríguez. *Shunt valve setting decreased to 130 on 10/21/22. *Shunt valve setting decreased to 120 on 10/30/2022 *Shunt valve setting decreased to 110 on 12/20/22 PAIN EVALUATION 09/21/2024 1054 Pain Level: 6 Pain Location: Head left side of head Description: Pressure Duration Amount of Time: 3 Duration Units: Weeks Frequency: Continuous PAST MEDICAL HISTORY Diagnosis Date Allergic rhinitis Arthritis Back C. difficile enteritis Hist (more content not included)... [facility] 09-14-2024 Telephone encounter Note Returned call to patients daughter. She reported that she spoke to her mom today who reported that she was not feeling herself. She complained of head pressure without headache and she misused a word during their conversation. She had been seen in the ED a few days ago with similar symptoms. Work up was completed including CT head and shunt series which were all negative for any change, bleed, shunt malfunction or abnormality. Christian is otherwise awake, alert, denying headache, sleepiness, visual changes, nausea/vomiting or any other neurological change. She simply can not pinpoint the symptoms she is feeling. Dr. Rodríguez reviewed her recent imaging and determined that the valve setting is unchanged at 110 which it was set to on 12/20/22. We will plan to see Christian on 09/22/23 as scheduled for evaluation. Her daughter agreed to this plan of care and will call with any other questions or concerns. Lynn Murdock APRN-DILLON Neurosurgery Nurse Practitioner [facility] 3:07 PM 09/14/2024 [facility] Work Phone: 09-14-2024 Miscellaneous Notes Returned call to patients daughter. She reported that she spoke to her mom today who reported that she was not feeling herself. She complained of head pressure without headache and she misused a word during their conversation. She had been seen in the ED a few days ago with similar symptoms. Work up was completed including CT head and shunt series which were all negative for any change, bleed, shunt malfunction or abnormality. Christian is otherwise awake, alert, denying headache, sleepiness, visual changes, nausea/vomiting or any other neurological change. She simply can not pinpoint the symptoms she is feeling. Dr. Rodríguez reviewed her recent imaging and determined that the valve setting is unchanged at 110 which it was set to on 12/20/22. We will plan to see Christian on 09/22/23 as scheduled for evaluation. Her daughter agreed to this plan of care and will call with any other questions or concerns. Lynn Murdock APRN-DILLON Neurosurgery Nurse Practitioner [facility] 3:07 PM 09/14/2024 documented in this encounter [facility] 09-14-2024 Telephone encounter Note Patients daughter called concerned that her mom was having pressure in her head and seemed confused on the phone, misusing words. Noted she was in the ED on 09/[address] brain and no concerns with her shunt/placement. Daughter noted she had a history of TIA's and recently had a UTI. Advised they reach out to PCP for repeat urine and if concerned with stroke like symptoms to present to the ED. Discussed with Dr. Rodríguez and MAHI Bailey. Lynn noted she had spoke with patient and was set up for a sooner visit for 09/21. Informed daughter of this information as well. She was thankful and understanding. Los Hamilton RN [facility] 09-14-2024 Miscellaneous Notes Patients daughter called concerned that her mom was having pressure in her head and seemed confused on the phone, misusing words. Noted she was in the ED on 09/[address] brain and no concerns with her shunt/placement. Daughter noted she had a history of TIA's and recently had a UTI. Advised they reach out to PCP for repeat urine and if concerned with stroke like symptoms to present to the ED. Discussed with Dr. Rodríguez and MAHI Bailey. Lynn noted she had spoke with patient and was set up for a sooner visit for 09/21. Informed daughter of this information as well. She was thankful and understanding. Los Hamilton RN documented in this encounter [facility] 07-12-2024 Note HNO ID: [id number] Author: ELLEN CANALES RT(R) Service: ? Author Type: Technologist Type: Progress Notes Filed: 07/12/2024 17:59 Note Text: Radiology Service Progress Note PATIENT NAME: Christian Suggs DATE OF SERVICE: July 12, 2024 TIME: 5:58 PM PATIENT IDENTITY VERIFICATION COMPLETED USING TWO (2) IDENTIFIERS: Name and Date of confirmed by patient verbally. FALL SCREENING: Has the patient had 2 falls in the last year or 1 fall with injury or currently using an Ambulatory Assistive Device (Walker, Cane, Wheelchair, Crutches, etc.)? Emergency Room Patient: Screened in ED PATIENT GENDER DATA: Female. status: : No status: NO. PATIENT RELEVANT IMPLANT DATA REVIEWED: Yes PATIENT PRESENTS WITH AN IMPLANTABLE OR ATTACHED VERSE WRITER: No RADIOLOGY DEPARTMENT: Ultrasound PERIPHERAL IV DATA: Not applicable SIGNED BY: Ellen Canales RDMS, T July 12, 2024 5:58 PM [facility] 06-16-2024 Telephone encounter Note Emergency Department Culture Callback Service Patient Name: Christian Suggs Date of Callback: 06/16/2024 Pharmacist spoke to Patient and Significant Other to update on results from recent emergency department visit. Patient was verified with two identifiers. Pharmacist utilized consult agreement to update plan of care as documented. Type of Culture(s): Urine Result: Positive: Proteus vulgaris Change in treatment needed:Yes: Change treatment medication Action Taken: Final result reviewed. >100k Proteus vulgaris resistant to cephalexin prescribed. Patient reports feeling significantly improved today but some residual dizziness. Will change treatment to Bactrim 1 DS tablet PO BID x 3 days per consult agreement. Patient contacted - informed of change and also relayed information to patient's spouse with approval. Please page/call with any issues or questions. Electronic signature: Chuyita Cortes PharmD June 16, 2024 9:33 AM [facility] 06-16-2024 Miscellaneous Notes Emergency Department Culture Callback Service Patient Name: Christian Suggs Date of Callback: 06/16/2024 Pharmacist spoke to Patient and Significant Other to update on results from recent emergency department visit. Patient was verified with two identifiers. Pharmacist utilized consult agreement to update plan of care as documented. Type of Culture(s): Urine Result: Positive: Proteus vulgaris Change in treatment needed:Yes: Change treatment medication Action Taken: Final result reviewed. >100k Proteus vulgaris resistant to cephalexin prescribed. Patient reports feeling significantly improved today but some residual dizziness. Will change treatment to Bactrim 1 DS tablet PO BID x 3 days per consult agreement. Patient contacted - informed of change and also relayed information to patient's spouse with approval. Please page/call with any issues or questions. Electronic signature: Chuyita Cortes PharmD June 16, 2024 9:33 AM documented in this encounter [facility] 06-15-2024 Telephone encounter Note Returned call to patient's daughter Laura. She had left a message yesterday when I was out of the office that her mom was very dizzy, weak and had vomited. She was taken to an outside ED and was told she had vertigo. Prior to me returning the call the patient was taken to [facility] ED where workup was completed including CT brain, shunt series, chest x-ray, and urine testing. She was found to have a significant UTI. CT imaging and shunt series were stable. Christian is now on antibiotics for the UTI. I told her daughter to feel free to contact the office if she is still concerned once the UTI clears up however I suspect that her symptoms are related to this infection. Laura agreed and will contact us in the future should the need arise. DRE Ríos Neurosurgery Nurse Practitioner [facility] 10:27 AM 06/15/2024 [facility] Work Phone: 06-15-2024 Miscellaneous Notes Returned call to patient's daughter Laura. She had left a message yesterday when I was out of the office that her mom was very dizzy, weak and had vomited. She was taken to an outside ED and was told she had vertigo. Prior to me returning the call the patient was taken to [facility] ED where workup was completed including CT brain, shunt series, chest x-ray, and urine testing. She was found to have a significant UTI. CT imaging and shunt series were stable. Christian is now on antibiotics for the UTI. I told her daughter to feel free to contact the office if she is still concerned once the UTI clears up however I suspect that her symptoms are related to this infection. Laura agreed and will contact us in the future should the need arise. DRE Ríos Neurosurgery Nurse Practitioner [facility] 10:27 AM 06/15/2024 documented in this encounter [facility] 01-30-2024 History of Present illness Narrative NEUROSURGERY FOLLOW UP OFFICE NOTE Dr. Jean Rodríguez MD, FACS Date of visit: January 30, 2024 Patient Name: Ms.Tuula [place] Suggs Date of : 1945 Current Age: [age] year old Sex: female MRN/E# [id number] Last Office Visit: March 28, 2023 CHIEF COMPLAINT: Patient presents with: Established Patient SUBJECTIVE: The patient presents as a follow-up without new imaging for evaluation. This is a 77-year-old female with a PMHx of arthritis, melanoma (right thigh), rotator cuff tear and NPH who was seen for consult on 03/05/2022 as a referral from the [place] emergency department. After sustaining a fall while working in her garden CT brain was obtained and was concerning for ventriculomegaly and work-up for possible NPH (normal pressure hydrocephalus) was recommended. Evaluation and additional imaging was obtained and there was no evidence of a cerebral mass, lesion or ventricular size being out of proportion. She was referred to neurology for complete evaluation to include possible dementia and/or NPH. Once work-up was completed it was determined that she would benefit from a ventriculoperitoneal shunt and this was agreed to and completed as noted below. Since then she has been seen routinely in the office for evaluation with shunt adjustments and has gradually improved. In December 2022 she and her felt that her memory had not gotten much better. They both agreed that her gait had improved. Neurologically she remained intact on exam without focal deficit with a slightly compensated gait. CT brain was reviewed and showed no change in the size of the ventricular system or the position of the shunt. Recommendation was to adjust the shunt setting from 120 to 110 and follow-up in [address] brain. Since then she has been seen routinely for evaluation with imaging and has over all done well. She was last seen in the office in March 2023 after a fall in her kitchen while cleaning the floor causing her to strike her head. She denied any headache or new neurological changes. She reported continued fatigue, balance issues and memory deficits. She felt that her symptoms were better immediately following placement of DESIGNER/WRITER shunt and since then had not improved. Shunt valve settings remained at 110. Neurologically she was intact on exam without focal deficit with the exception of a compensated gait for which she utilized a cane as an assistive device. CT head was obtained and reviewed given her recent fall and use of aspirin. The ventricular system appeared stable without change in size and there was no evidence of subdural hematoma. It was discussed with her and her family that the shunt was functioning well and there was no indication to adjust the setting. Recommendation was that she participate in a course of physical therapy for gait, follow-up with neurology to see if she would benefit from medications for her memory and follow-up with neurosurgery in 1 year for a routine visit. Today she states she is overall doing well. She denies any new or concerning issues since last visit. She presents for evaluation and plan of care. SYMPTOMS: Decreased balance, decreased memory, urinary frequency PREVIOUS CONSERVATIVE TREATMENTS: None SURGICAL RISK: Smoker: Never Diabetic: No Anticoagulants / Antiplatelets: Low-dose ASA 81 mg Occupation: N/A PREVIOUS SURGERY: SURGERY: Creation of ventriculoperitoneal shunt system programmable Codman valve set at 140 on 10/16/[address] Rodríguez. *Shunt valve setting decreased to 130 on 10/21/22. *Shunt valve setting decreased to 120 on 10/30/2022 *Shunt valve setting decreased to 110 on 12/20/22 PAIN EVALUATION No data found in the last 1 encounters. PAST MEDICAL HISTORY Diagnosis Date Allergic rhinitis Arthritis Back C. difficile enteritis History of back surgery 07/21/2011 HLD (hyperlipidemia) Lymphocytic colitis Melanoma (HCC) right thigh NPH (normal pressure hydrocephalus) (HCC) KIASER (obstructive sleep apnea) Rotator cuff tear arthropathy of right shoulder 07/21/2012 Urinary retention PAST SURGICAL HISTORY Procedure Laterality Date ARTHRP KNE CONDYLE&PLATU MEDIAL&LAT COMPARTMENTS Right 10/2014 CARPAL TUNNEL 2009 bilateral CHOLECYSTECTOMY HX N/A COLONOSCOPY FLX DX W/COLLJ SPEC WHEN PFRMD 02/02/2016 JOINT REPLACEMENT HX ORTHOPEDICS SURGERY HX PAST SURGICAL HISTORY OF 1999 bladder repair PAST SURGICAL HISTORY OF 2007 melanoma removal FAMILY HISTORY Problem Relation Age of Onset Heart Father late in life Breast Cancer Maternal Aunt Diabetes Other none Colon Cancer Other none Coronary Artery Disease Other none ALLERGIES Allergen Reactions Hydrocodone Bitartr* GI Upset Mesalamine Myalgia Oxycodone GI Upset Flagyl [Nitroimidaz* Other: See Comments metal mouth Scopolamine Other: See Comments Current Outpatient Medications Medication Sig Dispense Refill tamsulosin (FLOMAX) 0.4 mg Take 1 capsule by mouth once daily at bedtime 30 capsule 0 triamcinolone acetonide (KENALOG) 0.1 % cream aspirin, enteric coated (ASPIRIN, ENTERIC COATED) 81 mg EC tablet Take 1 tablet by mouth once daily. To begin on 11/04/22 CALCIUM-VITAMIN D3 ORAL Take 1 capsule by mouth once daily. biotin 1 mg cap Take 1 capsule by mouth once daily. Melatonin 5 mg cap Take 1 capsule by mouth daily at bedtime. rosuvastatin (CRESTOR) 5 mg tablet Take 1 tablet by mouth once daily. budesonide, enteric coated (ENTOCORT EC) 3 mg 24 hr capsule Take 2 capsules by mouth daily before breakfast. Resume after Dexamethasone completed omeprazole (PRILOSEC) 40 mg capsule Take 40 mg by mouth once daily. DULoxetine (CYMBALTA) 30 mg capsule Take 1 capsule by mouth daily at bedtime. multivitamin ORAL tablet Take 1 tablet by mouth once daily. 0 No current facility-administered medications for this visit. REVIEW OF SYSTEMS: Review of Systems Constitutional: Negative for chills, diaphoresis (Negative for night sweats.) and fever. HENT: Negative for ear discharge and rhinorrhea. Eyes: Negative for discharge. Respiratory: Negative for cough, shortness of breath and wheezing. Cardiovascular: Negative for chest pain, palpitations and leg swelling. Gastrointestinal: Negative for constipation, diarrhea, nausea and vomiting. Endocrine: Negative for cold intolerance and heat intolerance. Genitourinary: Negative for frequency. Negative for urinary incontinence and urinary retention. Musculoskeletal: Negative for back pain, joint swelling, myalgias and neck pain. Skin: Negative for rash (Negative for hives and skin lesions.). Allergic/Immunologic: Negative for environmental allergies and food allergies. Negative for contact allergy, seasonal allergies. Neurological: Negative for dizziness, seizures, syncope, weakness, light-headedness, numbness (Negative for numbness in extremities.) and headaches. Hematological: Does not bruise/bleed easily. Psychiatric/Behavioral: The patient is not nervous/anxious. Negative for depression. OBJECTIVE: BP 130/79 Pulse 79 Resp 16 Ht 5' 4 (1.63m) Wt 172 lb 9.9 oz (78.3kg) SpO2 97% BMI 29.62 kg/(m^2). PHYSICAL EXAM: Mental State : Alert, memory function unremarkable. Attention span and concentration normal for patient's age. Speech normal, no receptive or expressive speech deficit. Recent and remote memory normal. Orientation : Oriented to person, place and time. Higher Cortical Function : Intact speech and language. Spontaneous speech and comprehension normal. Fund of knowledge intact for pt level of education. Cranial Nerves : II: No visual field cut no blurring, Makes and sustains eye contact III, IV, : Normal, no double vision or drooping. Pupils equal and reactive to light. Extraocular muscles intact. No nystagmus V: Normal sensation on the face, normal jaw movements VII: No paresis on either side VIII: No gross hearing deficit IX: Good and equal shoulder shrugs XII: Tongue midline, no fasciculations Sensory: SILT. Normal Sensation in upper and lower extremities and trunk to touch and noxious stimuli. Motor: Normal muscle tone and bulk. No tremor or uncontrollable movements. No spasticity or tremor. Strength: Upper Extremities : R L Deltoid 5/5 5/5 Biceps 5/5 5/5 Triceps 5/5 5/5 Wrist Ext 5/5 5/5 Wrist Flx 5/5 5/5 Hand Int 5/5 5/5 Lower Extremities : Hip Flexors 5/5 5/5 Hip Extensors 5/5 5/5 Hip Abductors 5/5 5/5 Straight leg Neg Neg Ankle dorsiflex 5/5 5/5 Ankle Plantar 5/5 5/5 Reflexes : Biceps 2+ 2+ Triceps 2+ 2+ Wrist 2+ 2+ Patellar 2+ 2+ Achilles 2+ 2+ Cerebellar Function : Normal finger to nose. Normal rapid alternating movements. No ataxia. Negative Romberg. Gait and Station: Normal gait. No assistive device usage. Pulmonary: Lungs without cough, audible wheeze. Respirations unlabored. Cardiac: Regular rate and rhythm. No murmer, gallop or rub. IMAGING: No new imaging ASSESSMENT/PLAN: 1. NPH (normal pressure hydrocephalus) ([facility]) - ICD9: 331.5, ICD10: G91.2 (primary diagnosis) Patient diagnosed with NPH and had a DESIGNER/WRITER shunt who is setting is 120 now. She improved as far as her gait more than her memory but she is doing well. She has no incontinence. I observed her walk and I think her gait is much improved compared to preoperative status. She denies headache and she has no focal neurological deficit. I checked all the shunt sites and and I checked the reservoir which compresses and rebounds abruptly indicating normal activity. Other shunt sites incisions are well-healed with no evidence of fluid collection or infection. I recommended a follow-up visit in 1 year. 2. S/P ventriculoperitoneal shunt - ICD9: V45.2, ICD10: Z98.2 Jean Rodríguez MD FOLLOW UP: Return in about 1 year (around 01/29/2025) for routine visit. Please Note: This note has been partially generated using [employer], a speech recognition software program, and may contain errors including punctuation, grammar, spelling, gender, and inappropriate words or phrases that pertain to the system. documented in this encounter [facility] 01-30-2024 Note HNO ID: [id number] Author: JEAN RODRÍGUEZ MD Service: ? Author Type: Physician Type: Progress Notes Filed: 01/30/2024 13:50 Note Text: NEUROSURGERY FOLLOW UP OFFICE NOTE Dr. Jean Rodríguez MD, [facility] Date of visit: January 30, 2024 Patient Name: Ms.Tuula [place] Suggs Date of : 1945 Current Age: [age] year old Sex: female MRN/E# [id number] Last Office Visit: March 28, 2023 CHIEF COMPLAINT: Patient presents with: Established Patient SUBJECTIVE: The patient presents as a follow-up without new imaging for evaluation. This is a 77-year-old female with a PMHx of arthritis, melanoma (right thigh), rotator cuff tear and NPH who was seen for consult on 03/05/2022 as a referral from the [place] emergency department. After sustaining a fall while working in her garden CT brain was obtained and was concerning for ventriculomegaly and work-up for possible NPH (normal pressure hydrocephalus) was recommended. Evaluation and additional imaging was obtained and there was no evidence of a cerebral mass, lesion or ventricular size being out of proportion. She was referred to neurology for complete evaluation to include possible dementia and/or NPH. Oncework-up was completed it was determined that she would benefit from a ventriculoperitoneal shunt and this was agreed to and completed as noted below. Since then she has been seen routinely in the office for evaluation with shunt adjustments and has gradually improved. In December 2022 she and her felt that her memory had not gotten much better. They both agreed that her gait had improved. Neurologically she remained intact on exam without focal deficit with a slightly compensated gait. CT brain was reviewed and showed no change in the size of the ventricular system or the position of the shunt. Recommendation was to adjust the shunt setting from 120 to 110 and follow-up in [address] brain. Since then she has been seen routinely for evaluation with imaging and has over all done well. She was last seen in the office in March 2023 after a fall in her kitchen while cleaning the floor causing her to strike her head. She denied any headache or new neurological changes. She reported continued fatigue, balance issues and memory deficits. She felt that her symptoms were better immediately following placement of DESIGNER/WRITER shunt and since then had not improved. Shunt valve settings remained at 110. Neurologically she was intact on exam without focal deficit with the exception of a compensated gait for which she utilized a cane as an assistive device. CT head was obtained and reviewed given her recent fall and use of aspirin. The ventricular system appeared stable without change in size and there was no evidence of subdural hematoma. It was discussed with her and her family that the shunt was functioning well and there was no indication to adjust the setting. Recommendation was that she participate in a course of physical therapy for gait, follow-up with neurology to see if she would benefit from medications for her memory and follow-up with neurosurgery in 1 year for a routine visit. Today she states she is overall doing well. She denies any new or concerning issues since last visit. She presents for evaluation and plan of care. SYMPTOMS: Decreased balance, decreased memory, urinary frequency PREVIOUS CONSERVATIVE TREATMENTS: None SURGICAL RISK: Smoker: Never Diabetic: No Anticoagulants / Antiplatelets: Low-dose ASA 81 mg Occupation: N/A PREVIOUS SURGERY: SURGERY: Creation of ventriculoperitoneal shunt system programmable Codman valve set at 140 on 10/16/[address] Rodríguez. *Shunt valve setting decreased to 130 on 10/21/22. *Shunt valve setting decreased to 120 on 10/30/2022 *Shunt valve setting decreased to 110 on 12/20/22 PAIN EVALUATION No data found in the last 1 encounters. PAST MEDICAL HISTORY Diagnosis Date Allergic rhinitis Arthritis Back C. difficile enteritis History of back surgery 07/21/2011 HLD (hyperlipidemia) Lymphocytic colitis Melanoma (HCC) right thigh NPH (normal pressure hydrocephalus) (HCC) [facility] (obstructive sleep apnea) Rotator cuff tear arthropathy of right shoulder 07/21/2012 Urinary retention PAST SURGICAL HISTORY Procedure Laterality Date ARTHRP KNE CONDYLEANDPLATU MEDIALANDLAT COMPARTMENTS Right 10/2014 CARPAL TUNNEL 2009 bilateral CHOLECYSTECTOMY HX N/A COLONOSCOPY FLX DX W/COLLJ SPEC WHEN PFRMD 02/02/2016 JOINT REPLACEMENT HX ORTHOPEDICS SURGERY HX PAST SURGICAL HISTORY OF 1999 bladder repair PAST SURGICAL HISTORY OF 2007 melanoma removal FAMILY HISTORY Problem Relation Age of Onset Heart Father late in life Breast Cancer Maternal Aunt Diabetes Other none Colon Cancer Other none Coronary Artery Disease Other none ALLERGIES Allergen Reactions Hydrocodone Bitartr* GI Upset Mesalamine Myalgia Oxycodone GI Upset Flagyl [Nitr (more content not included)... [facility] 01-24-2023 History of Present illness Narrative NEUROSURGERY FOLLOW UP OFFICE NOTE Dr. Jean Rodríguez MD, FACS Date of visit: January 24, 2023 Patient Name: Ms.Tuula [place] Date of : 1945 Current Age: [age] year old Sex: female MRN/E# [id number] Last Office Visit: 12/20/2022 Chief Complaint: Patient presents with: Established Patient SUBJECTIVE: The patient presents as a follow up with imaging (CT B) for evaluation. This is a 77-year-old female with a PMHx of arthritis, melanoma (right thigh), rotator cuff tear and NPH who was seen for consult on 03/05/2022 as a referral from the [place] emergency department. After sustaining a fall while working in her garden CT brain was obtained and was concerning for ventriculomegaly and work-up for possible NPH (normal pressure hydrocephalus) was recommended. Evaluation and additional imaging was obtained and there was no evidence of a cerebral mass, lesion or ventricular size being out of proportion. She was referred to neurology for complete evaluation to include possible dementia and/or NPH. Once work-up was completed it was determined that she would benefit from a ventriculoperitoneal shunt and this was agreed to and completed as noted below. Since then she has been seen routinely in the office for evaluation with shunt adjustments and has gradually improved. She was last seen on 12/20/2022 and she and her felt that her memory had not gotten much better. They both agreed that her gait had improved. Neurologically she remained intact on exam without focal deficit with a slightly compensated gait. CT brain was reviewed and showed no change in the size of the ventricular system or the position of the shunt. Recommendation was to adjust the shunt setting from 120 to 110 and follow-up in [address] brain prompting her visit today. Since last visit she states she is overall doing well. She denies any new changes or concerns since last visit. She denies any headaches. She presents for image review, evaluation and plan of care. Symptoms: mild balance issues, memory issues. Pre-Surgical Symptoms: Urinary retention, short term memory deficit, balance disturbance. PREVIOUS CONSERVATIVE TREATMENTS: None PREVIOUS SURGERY: SURGERY: Creation of ventriculoperitoneal shunt system programmable Codman valve set at 140 on 10/16/[address] Rodríguez. *Shunt valve setting decreased to 130 on 10/21/22. *Shunt valve setting decreased to 120 on 10/30/2022 *Shunt valve setting decreased to 110 on 12/20/22 PAIN EVALUATION 01/24/2023 1411 Pain Level: 0 PAST MEDICAL HISTORY Diagnosis Date Allergic rhinitis Arthritis Back C. difficile enteritis History of back surgery 07/21/2011 HLD (hyperlipidemia) Lymphocytic colitis Melanoma (HCC) right thigh NPH (normal pressure hydrocephalus) (HCC) [facility] (obstructive sleep apnea) Rotator cuff tear arthropathy of right shoulder 07/21/2012 Urinary retention PAST SURGICAL HISTORY Procedure Laterality Date ARTHRP KNE CONDYLE&PLATU MEDIAL&LAT COMPARTMENTS Right 10/2014 CARPAL TUNNEL 2009 bilateral COLONOSCOPY FLX DX W/COLLJ SPEC WHEN PFRMD 02-02-16 JOINT REPLACEMENT HX ORTHOPEDICS SURGERY HX PAST SURGICAL HISTORY OF 1999 bladder repair PAST SURGICAL HISTORY OF 2007 melanoma removal FAMILY HISTORY Problem Relation Age of Onset Heart Father late in life Breast Cancer Maternal Aunt Diabetes Other none Colon Cancer Other none Coronary Artery Disease Other none ALLERGIES Allergen Reactions Hydrocodone Bitartr* GI Upset Mesalamine Myalgia Oxycodone GI Upset Flagyl [Nitroimidaz* Other: See Comments metal mouth Scopolamine Other: See Comments Current Outpatient Medications Medication Sig Dispense Refill estradiol (ESTRACE) 0.01 % (0.1 mg/gram) vaginal cream INSERT 1 GRAM VAGINALLY NIGHTLY BEFORE BED FOR 2 WEEKS, THEN 1 GRAM VAGINALLY 3 TIMES A WEEK. aspirin, enteric coated (ASPIRIN, ENTERIC COATED) 81 mg EC tablet Take 1 tablet by mouth once daily. To begin on 11/04/22 CALCIUM-VITAMIN D3 ORAL Take 1 capsule by mouth once daily. biotin 1 mg cap Take 1 capsule by mouth once daily. Melatonin 5 mg cap Take 1 capsule by mouth daily at bedtime. vit A-vit C-vit [id number] 7,160-113-100 cqcu-[id number] tab Take 2 tablets by mouth once daily. tamsulosin (FLOMAX) 0.4 mg Take 1 capsule by mouth daily at bedtime. 90 capsule 3 rosuvastatin (CRESTOR) 5 mg tablet Take 1 tablet by mouth once daily. budesonide, enteric coated (ENTOCORT EC) 3 mg 24 hr capsule Take 2 capsules by mouth daily before breakfast. Resume after Dexamethasone completed omeprazole (PRILOSEC) 40 mg capsule Take 40 mg by mouth once daily. DULoxetine (CYMBALTA) 30 mg capsule Take 1 capsule by mouth daily at bedtime. multivitamin ORAL tablet Take 1 tablet by mouth once daily. 0 No current facility-administered medications for this visit. REVIEW OF SYSTEMS Review of Systems Constitutional: Negative for chills, diaphoresis (Negative for night sweats.) and fever. HENT: Negative for ear discharge and rhinorrhea. Eyes: Negative for discharge. Respiratory: Negative for cough, shortness of breath and wheezing. Cardiovascular: Negative for chest pain, palpitations and leg swelling. Gastrointestinal: Negative for constipation, diarrhea, nausea and vomiting. Endocrine: Negative for cold intolerance and heat intolerance. Genitourinary: Negative for frequency. Negative for urinary incontinence and urinary retention. Musculoskeletal: Positive for gait problem. Negative for back pain, joint swelling, myalgias and neck pain. Skin: Negative for rash (Negative for hives and skin lesions.). Allergic/Immunologic: Negative for environmental allergies and food allergies. Negative for contact allergy, seasonal allergies. Neurological: Negative for dizziness, seizures, syncope, weakness, light-headedness, numbness (Negative for numbness in extremities.) and headaches. Hematological: Does not bruise/bleed easily. Psychiatric/Behavioral: The patient is not nervous/anxious. Negative for depression. OBJECTIVE: BP 122/84 Pulse 75 Ht 5' 3 (1.60m) Wt 172 lb 13.5 oz (78.4kg) SpO2 98% BMI 30.63 kg/(m^2). PHYSICAL EXAM: Mental State : Alert, memory function unremarkable. Attention span and concentration normal for patient's age. Speech normal, no receptive or expressive speech deficit. Recent and remote memory normal. Orientation : Oriented to person, place and time. Higher Cortical Function : Intact speech and language. Spontaneous speech and comprehension normal. Fund of knowledge intact for pt level of education. Cranial Nerves : II: No visual field cut no blurring, Makes and sustains eye contact III, IV, : Normal, no double vision or drooping. Pupils equal and reactive to light. Extraocular muscles intact. No nystagmus V: Normal sensation on the face, normal jaw movements VII: No paresis on either side VIII: No gross hearing deficit IX: Good and equal shoulder shrugs XII: Tongue midline, no fasciculations Sensory: Normal Sensation in upper and lower extremities and trunk to touch and noxious stimuli. Motor: Normal muscle tone and bulk. No tremor or uncontrollable movements. No spasticity or tremor. Strength: Upper Extremities : R L Deltoid 5/5 5/5 Biceps 5/5 5/5 Triceps 5/5 5/5 Wrist Ext 5/5 5/5 Wrist Flx 5/5 5/5 Hand Int 5/5 5/5 Lower Extremities : Hip Flexors 5/5 5/5 Hip Extensors 5/5 5/5 Hip Abductors 5/5 5/5 Straight leg Neg Neg Ankle dorsiflex 5/5 5/5 Ankle Plantar 5/5 5/5 Heel Walking intact intact Toe Walking intact intact Reflexes : Biceps 2+ 2+ Triceps 2+ 2+ Wrist 2+ 2+ Patellar 2+ 2+ Achilles 2+ 2+ Noland's Neg Neg Tinel's Neg Neg Phalen's Neg Neg Cerebellar Function : Normal finger to nose. Normal rapid alternating movements. No ataxia. Negative Romberg. Gait and Station: Normal gait. No assistive device usage. Pulmonary: Lungs without cough, audible wheeze. Respirations unlabored. Cardiac: Regular rate and rhythm. No murmer, gallop or rub. IMAGING: CT Brain WO IVCON performed today 01/24/23 demonstrates: Is not in yet but to me there is no significant change in the size of the ventricles or the location of the ventricular catheter. ASSESSMENT/PLAN: 1. NPH (normal pressure hydrocephalus) (HCC) - ICD9: 331.5, ICD10: G91.2 (primary diagnosis) Since doing well I think her gait has improved. She does not think her memory has changed significantly since the DESIGNER/WRITER shunt was placed. I reviewed the CT scan that shows no evidence of a subdural hygroma or hematoma since the last adjustment of the shunt. At this time we will continue to do monitoring of the shunt and we will see her in a year from now. Should there be any shunt malfunction the symptoms of which I described to her and her we will then see her sooner. 2. S/P ventriculoperitoneal shunt - ICD9: V45.2, ICD10: Z98.2 Jean Rodríguez MD Follow Up: Return in about 1 year (around 01/25/2024) for routine visit. This note was partially generated using [employer] voice recognition system, and there may be some incorrect words, spellings, and punctuation that were not noted in checking the note before saving. documented in this encounter [facility] 12-20-2022 History of Present illness Narrative NEUROSURGERY POST OP NOTE Dr. Jean Rodríguez MD, FACS Date of visit: December 19, 2022 Patient Name: Ms.Tuula [place] Date of : 1945 Current Age: [age] year old MRN/E# [id number] Last Office Visit: November 13, 2022 SURGERY: Creation of ventriculoperitoneal shunt system programmable Codman valve set at 140 on 10/16/[address] Rodríguez. *Shunt valve setting decreased to 130 on 10/21/22. *Shunt valve setting decreased to 120 on 10/30/2022 *Shunt valve setting decreased to 110 on 12/20/22 Pre-Surgical Symptoms: Urinary retention, short term memory deficit, balance disturbance. Patient presents for a post operative visit with imaging (CT B) for evaluation. This is a 77-year-old female who was initially seen for consult in February 2022 as a referral from [place] emergency department. She had apparently sustained a fall on 03/11/2022 while working in the garden and losing her balance. During work-up she reported that she had been having balance issues over the previous year with multiple falls. CT of the brain was obtained and was concerning for ventriculomegaly. Imaging was compared to prior imaging from September 2021 and appeared stable. Given the finding however recommendation was that she be worked up by neurosurgery for possible NPH (normal pressure hydrocephalus). During her visit she reported balance issues for many years that had worsened over the last 2. She also reported difficulty with her memory and urinary incontinence. She also reported that her sister recently underwent surgery for 2 unruptured aneurysms and wondered if she needed to be evaluated. It was also discussed that she had a lumbar fusion and had a recent CT of the lumbar spine indicated hardware failure. She was having persistent low back pain since surgery. Recommendation was to obtain an MRI/MRA of the brain for further evaluation. She was last seen in the office in March 2022 and reported persistent issues with short-term memory, balance and urinary frequency. Neurologically she was intact on exam without focal deficit and gait was evaluated to be more of a waddling type gait than spastic or apraxic gait. Imaging was reviewed and there was no note of a mass, lesion or ventricular size being out of proportion. It was recommended that she be evaluated by neurology for evaluation of possible dementia or if symptoms were indicating NPH. She followed-up after neurological examination to determine if she would benefit from a ventriculoperitoneal shunt. It was determined so and it was completed as noted above. Since then she has been seen routinely for evaluation. On 10/30/2022 she denied headache or dizziness. She felt that her incontinence was improved but her gait was about the same . Her felt that her memory was about the same as it was before the shunt placement. Her incision was healing well without signs of infection. Neurologically she was intact with a compensated gait for which she utilized a walker. CT was obtained and showed no change in the size of the ventricular system and no evidence of subdural fluid collection. Her valve was adjusted from 130-120. On 11/13/2022 she returned for an evaluation. She stated that her balance had improved since last visit but denied any changes to memory or urinary symptoms. Her neurological exam remained stable. Her shunt was set at 120 mm with the plan to keep it at that setting and to follow-up in [address] brain for continued evaluation prompting her visit today. Since last visit she states she is overall doing fair. Her feels her memory has not gotten better. They both agree that her gait has improved. She recently had her gallbladder removed and is recovering from that. Otherwise no new issues. She presents for image review, evaluation and plan of care. Incision: well healed PAST MEDICAL HISTORY Diagnosis Date Allergic rhinitis Arthritis Back C. difficile enteritis History of back surgery 07/21/2011 HLD (hyperlipidemia) Lymphocytic colitis Melanoma (HCC) right thigh NPH (normal pressure hydrocephalus) (HCC) [facility] (obstructive sleep apnea) Rotator cuff tear arthropathy of right shoulder 07/21/2012 Urinary retention PAST SURGICAL HISTORY Procedure Laterality Date ARTHRP KNE CONDYLE&PLATU MEDIAL&LAT COMPARTMENTS Right 10/2014 CARPAL TUNNEL 2009 bilateral COLONOSCOPY FLX DX W/COLLJ SPEC WHEN PFRMD 02-02-16 JOINT REPLACEMENT HX ORTHOPEDICS SURGERY HX PAST SURGICAL HISTORY OF 1999 bladder repair PAST SURGICAL HISTORY OF 2007 melanoma removal FAMILY HISTORY Problem Relation Age of Onset Heart Father late in life Breast Cancer Maternal Aunt Diabetes Other none Colon Cancer Other none Coronary Artery Disease Other none ALLERGIES Allergen Reactions Hydrocodone Bitartr* GI Upset Mesalamine Myalgia Oxycodone GI Upset Flagyl [Nitroimidaz* Other: See Comments metal mouth Scopolamine Other: See Comments Current Outpatient Medications Medication Sig Dispense Refill estradiol (ESTRACE) 0.01 % (0.1 mg/gram) vaginal cream INSERT 1 GRAM VAGINALLY NIGHTLY BEFORE BED FOR 2 WEEKS, THEN 1 GRAM VAGINALLY 3 TIMES A WEEK. aspirin, enteric coated (ASPIRIN, ENTERIC COATED) 81 mg EC tablet Take 1 tablet by mouth once daily. To begin on 11/04/22 CALCIUM-VITAMIN D3 ORAL Take 1 capsule by mouth once daily. biotin 1 mg cap Take 1 capsule by mouth once daily. Melatonin 5 mg cap Take 1 capsule by mouth daily at bedtime. vit A-vit C-vit D-svlm-zuitvv 7,160-113-100 [id number]-kc-[id number] tab Take 2 tablets by mouth once daily. tamsulosin (FLOMAX) 0.4 mg Take 1 capsule by mouth daily at bedtime. 90 capsule 3 rosuvastatin (CRESTOR) 5 mg tablet Take 1 tablet by mouth once daily. budesonide, enteric coated (ENTOCORT EC) 3 mg 24 hr capsule Take 2 capsules by mouth daily before breakfast. Resume after Dexamethasone completed omeprazole (PRILOSEC) 40 mg capsule Take 40 mg by mouth once daily. DULoxetine (CYMBALTA) 30 mg capsule Take 1 capsule by mouth daily at bedtime. multivitamin ORAL tablet Take 1 tablet by mouth once daily. 0 No current facility-administered medications for this visit. Review of Systems Constitutional: Negative for chills, diaphoresis (Negative for night sweats.) and fever. HENT: Negative for ear discharge and rhinorrhea. Eyes: Negative for discharge. Respiratory: Negative for cough, shortness of breath and wheezing. Cardiovascular: Negative for chest pain, palpitations and leg swelling. Gastrointestinal: Negative for constipation, diarrhea, nausea and vomiting. Endocrine: Negative for cold intolerance and heat intolerance. Genitourinary: Negative for frequency. Negative for urinary incontinence and urinary retention. Musculoskeletal: Positive for gait problem. Negative for back pain, joint swelling, myalgias and neck pain. Skin: Negative for rash (Negative for hives and skin lesions.). Allergic/Immunologic: Negative for environmental allergies and food allergies. Negative for contact allergy, seasonal allergies. Neurological: Negative for dizziness, seizures, syncope, weakness, light-headedness, numbness (Negative for numbness in extremities.) and headaches. Hematological: Does not bruise/bleed easily. Psychiatric/Behavioral: Positive for confusion. The patient is not nervous/anxious. Negative for depression. PAIN EVALUATION No data found in the last 1 encounters. BP 121/76 (BP Site: Left Arm, BP Position: Sitting, BP Cuff Size: Regular Adult) Pulse 79 Ht 5' 3 (1.6 m) Wt 171 lb 1.2 oz (77.6 kg) SpO2 96% BMI 30.30 kg/m PHYSICAL EXAM: Mental State : Alert, memory function unremarkable. Attention span and concentration normal for patient's age. Speech normal, no receptive or expressive speech deficit. Recent and remote memory normal. Orientation : Oriented to person, place and time. Higher Cortical Function : Intact speech and language. Spontaneous speech and comprehension normal. Fund of knowledge intact for pt level of education. Cranial Nerves : II: No visual field cut no blurring, Makes and sustains eye contact III, IV, : Normal, no double vision or drooping. Pupils equal and reactive to light. Extraocular muscles intact. No nystagmus V: Normal sensation on the face, normal jaw movements VII: No paresis on either side VIII: No gross hearing deficit IX: Good and equal shoulder shrugs XII: Tongue midline, no fasciculations Sensory: Normal Sensation in upper and lower extremities and trunk to touch and noxious stimuli. Motor: Normal muscle tone and bulk. No tremor or uncontrollable movements. No spasticity or tremor. Strength: Upper Extremities : R L Deltoid 5/5 5/5 Biceps 5/5 5/5 Triceps 5/5 5/5 Wrist Ext 5/5 5/5 Wrist Flx 5/5 5/5 Hand Int 5/5 5/5 Lower Extremities : Hip Flexors 5/5 5/5 Hip Extensors 5/5 5/5 Hip Abductors 5/5 5/5 Straight leg Neg Neg Ankle dorsiflex 5/5 5/5 Ankle Plantar 5/5 5/5 Heel Walking intact intact Toe Walking intact intact Reflexes : Biceps 2+ 2+ Triceps 2+ 2+ Wrist 2+ 2+ Patellar 2+ 2+ Achilles 2+ 2+ Noland's Neg Neg Tinel's Neg Neg Phalen's Neg Neg Cerebellar Function : Normal finger to nose. Normal rapid alternating movements. No ataxia. Negative Romberg. Gait and Station: Slightly compensated. Utilizing cane as an assistive device. Pulmonary: Lungs without cough, audible wheeze. Respirations unlabored. Cardiac: Regular rate and rhythm. No murmer, gallop or rub. IMAGING: CT Brain WO IVCON performed today 12/20/22 demonstrates: Report pending but there is no change in the size of the ventricular system or the position of the shunt. ASSESSMENT/PLAN: 1. NPH (normal pressure hydrocephalus) ([facility]) - ICD9: 331.5, ICD10: G91.2 (primary diagnosis) Patient is here for a follow-up visit. She was seen 1 month ago and we adjusted her shunt down to [address] scan today to check. Her reports that immediately after her shunt operation her memory was better than it is now although on testing today she seems to be oriented x3 and she is cognitively not much different than what I remember her has. Her gait had improved since the shunt operation but not much change since the last adjustment. The shunt sites are all within normal limits and the shunt valve depresses and rebounds quickly with no evidence of malfunction. I discussed with the patient and her reducing the shunt setting from 1 20-1 10 and doing a follow-up scan and a visit in 1 month from now. I warned him about red flags until I see her next and if necessary they should call me and let me see her sooner. 2. S/P ventriculoperitoneal shunt - ICD9: V45.2, ICD10: Z98.2 I adjusted the shunt setting from 1 20-1 10. I used the [employer] business programmer and I positioned the device over the valve with the aero on the device pointing in the distal catheter direction. I put the setting at 110 and I pushed the button of the device until it settled at 110. Patient tolerated the procedure without any difficulty. Jean Rodríguez MD Return in about 1 month (around 01/19/2023) for review of imaging and plan of care. This note was partially generated using [employer] voice recognition system, and there may be some incorrect words, spellings, and punctuation that were not noted in checking the note before saving. documented in this encounter [facility] 12-19-2022 Miscellaneous Notes Called patient to see if she is able to come in early for her appointment with Dr. Rodríguez on 12/20, as he has to leave early for surgery. Patient did not answer and voicemail is full. Unable to leave a message. Will call back later. documented in this encounter [facility] 11-28-2022 Discharge summary Note Date/Time November 28, 2022 12:22 pm [facility] Medical Records Department [address] [place] [address] Instructions for Home/Discharge Instructions 11/28/22 1222 MR#: [id number] Acct: [id number] Name: CHRISTIAN SUGGS Rep #:[id number] : 1945 77 From: Radha Singh MD PCP: Dr. Lilo Grullon MD Status:[facility] Discharge Instructions Diet Discharge Diet: Light diet - advance as tolerated Activity Discharge Activity: May Not Drive (while taking narcotic pain medications.) May shower in (days): 1 Lifting Restrictions: no lifting >20 lbs x 2 wks, no strenuous exercise for 4 wks Dressing / Incision Call your doctor if your incision/area has: Continuous Slow Oozing, Sudden Increased Bleeding, Increased Pain/ Swelling, Increased Redness, Foul Smelling Discharge and Swelling at the incision site Call your doctor if you observe: Fever of 101 or Higher Remove Dressing in: 2 days Cleanse incision/area with: Soap & Water Additional Dressing/Incision Instructions:: Steri-Strips will fall off in 7 to 10 days, if they do not fall off okay to remove after 10 days. Follow Up Care Please Follow Up With: Radha Singh MD When: Call the office for a follow-up appointment 2 weeks; after 5 PM and on call [phone] with any concerns. Test Results: Test results from this visit will be discussed in further detail at your follow-up appointment, if applicable. Discharge Plan Admission Attending Provider: Radha Singh Primary Care Provider: Lilo Grullon Discharge Orders/Prescriptions Prescriptions: New tramadol 50 mg tablet 50 mg PO Q6H PRN (Reason: pain) Qty: 10 0RF Continued rosuvastatin 5 mg tablet 5 mg PO DAILY tamsulosin 0.4 mg capsule 0.4 mg PO QHS estradiol 0.01 % (0.1 mg/gram) cream 1 appful vaginal DAILY Rx Instructions: for 14 days multivitamin with folic acid 1 TABLET tablet 1 tab PO DAILY Label Comments: vitamin supplement duloxetine [Cymbalta] 30 MG capsule 30 mg PO DAILY vit A-vit C-vit F-twgk-bfknbn 7,160-113-100 blnw-jl-tpbv Tablet 2 tab PO DAILY melatonin 5 mg Tablet 5 mg PO QHS biotin 1 mg Capsule 1 mg PO DAILY omeprazole 40 mg capsule,delayed release(DR/EC) 40 mg PO DAILY Label Comments: TAKE 1 CAPSULE BY MOUTH ONCE DAILY fiber Tablet 1 tab PO BID calcium-vitamin D3-vitamin K 500-100-40 mg-unit-mcg Tablet,Chewable 1 tab PO BID cholecalciferol (vitamin D3) [Vitamin D3] 125 mcg (5,000 unit) Tablet 125 mcg PO DAILY turmeric 400 mg Capsule 400 mg PO DAILY meloxicam 7.5 mg tablet 5 mg PO BID PRN (Reason: pain) budesonide 3 mg capsule,delayed,extend.release See Rx Instructions .ROUTE .COMPLEX Rx Instructions: Take 2 capsules by mouth once daily (DME) Disability Placard See Rx Instructions .Route .MEDSUPPLY Qty: 1 0RF Rx Instructions: Expiration: 07/10/2025 (DME) Stairlift See Rx Instructions .Route .MEDSUPPLY Qty: 1 0RF Rx Instructions: Stairlift needed for Christian Suggs, Date of : 41, [place] Customer Number: [phone] Held aspirin 81 MG tablet,chewable 81 mg PO DAILY Hold Instructions: Resume on 11/30/22. Referrals / Follow Up: Lilo Grullon MD [Primary Care Provider] - Disposition Disposition (needs filled in before D/C Order can be placed): Home, Self Care 11/28/22 1228<Electronically signed by Radha Singh MD>Radha Singh MD CC: Dr. Lilo Grullon MD ~ Signed [facility] Work Phone: 1(544) 739-242605-11-2023 History and physical note Author Dr. Singh [facility] November 28, 2022 10:23am Note Date/Time November 28, 2022 10:22 am [facility] Medical Records Department [address] [place] [id number] History & Physical Exam 11/28/22 1021 MR#: [id number] Acct: [id number] Name: CHRISTIAN SUGGS Rep #:[id number] : 1945 77 From: Radha Singh MD PCP: Dr. Lilo Grullon MD Status:[facility] Location: [place] [address] History and Physical Date of Admission: 11/28/22 Date of Service:? 11/19/22 MR#: [id number] Acct: [id number] Name:CHRISTIAN BLACKBURN Rep #: [id number] : 1945 ? ? Provider: Dr. Radha Singh MD Age/Sex:? 77/F ? ? Location: [facility] Status: Signed Intake Vital Signs ? 11/19/2312:46 Height 5 ft 3 in Weight: 173 lb 6 oz BMI 30.7 BP 146/81 H Blood Pressure Location Rt brachial Position Sitting Respiration 17 Pulse 69 Pulse Source Monitor Temp 97.1 F L Temp Source Temporal Pulse Oximetry (%) 98 Oxygen Delivery Method room air Intake Visit Reasons:?UPDATE H&P Chief Complaint: discuss surgery/update H&P Is patient in pain?: No Allergies mesalamine Adverse Reaction (Intermediate, Verified 11/19/22 13:47) myalgiahydrocodone bitartrate [From Vicodin] Adverse Reaction (Verified 11/19/2312:47) NauseaMetronidazole HCl [From Flagyl] Adverse Reaction (Verified 11/19/22 13:47) Otheroxycodone HCl [From Percocet] Adverse Reaction (Verified 11/19/22 13:47) Nauseascopolamine Adverse Reaction (Verified 11/19/22 13:47) Other Medications calcium carbonate 600 mg-vitamin D3 20 mcg (800 unit) tablet 1,000 mg PO BIDCM supplement 10/13/14 [History Confirmed 11/19/22] multivitamin with folic acid 400 mcg tablet 1 tab PO DAILY supplement 10/13/14 [History Confirmed 11/19/22] duloxetine 30 mg capsule,delayed release (Cymbalta) 30 mg PO DAILY CHRONIC PAIN 09/17/18 [History Confirmed 11/19/22] aspirin 81 mg chewable tablet 81 mg PO DAILY dvt 10/16/18 [History Confirmed 11/19/22] biotin 1 mg capsule 1 mg PO DAILY 05/23/21 [History Confirmed 11/19/22] glucosamine 750 hr-fzewemftxqz-wag no1 644 mg-C 30 mg-charly 1 mg tablet (Osteo Bi-Flex Triple Strength) 2 tab PO DAILY 05/23/21 [History Confirmed 11/19/22] melatonin 5 mg tablet 5 mg PO QHS 05/23/21 [History Confirmed 11/19/22] vit A 7,160 unit-vit C 113 mg-vit E 100 nwaw-lfxy-pdojmm tablet 2 tab PO DAILY 05/23/21 [History Confirmed 11/19/22] rosuvastatin 5 mg tablet 5 mg PO DAILY 11/01/21 [History Confirmed 11/19/22] budesonide 3 mg capsule,delayed,extended release See Rx Instructions .Route .COMPLEX #60 caps 06/03/22 [Rx Confirmed 11/19/22] Disability Placard #1 ea 07/10/22 [Rx Confirmed 11/19/22] Stairlift #1 ea 07/10/22 [Rx Confirmed 11/19/22] tamsulosin 0.4 mg capsule 0.4 mg PO QHS 09/10/22 [History Confirmed 11/19/22] meloxicam 7.5 mg tablet 7.5 mg PO BID PRN pain #60 tabs 09/11/22 [Rx Confirmed 11/19/22] estradiol 0.01% (0.1 mg/gram) vaginal cream 1 appful vaginal DAILY 11/19/22 [History Confirmed 11/19/22] PFSH Medical History? Anxiety and depression Arthritis Carpal tunnel syndrome Change in bowel habit Chronic back pain Compression fx, lumbar spine COVID Diarrhea Eosinophilic gastroenteritis Erosion of suburethral sling Gastric reflux GERD (gastroesophageal reflux disease) History of Clostridioides difficile infection History of Clostridium difficile History of pulmonary embolism Hx of cataract Hypoglycemia Internal hemorrhoid Obesity Osteoarthritis Pulmonary embolism Pyelonephritis Rheumatoid arthritis Rheumatoid arthritis Sciatic neuropathy Skin cancer Urinary retention UTI (urinary tract infection) Wears hearing aid Surgical History? history of bladder sling History of carpal tunnel surgery History of right hip replacement History of rotator cuff surgery History of surgical removal of skin lesion Status post total right knee replacement Family History? Brother Cancer AlcoholismSister Anxiety Depression Social History? household members:? spouse Smoking Status:? Never smoker second hand exposure:? No alcohol intake:? never substance use type:? does not use what type of physical activity do you participate in:? none ye/caodaism:? Bahai seatbelt use:? always HPI HPI HPI: 77-year-old female presents with her for right upper quadrant pain/history of biliary dyskinesia.? Patient recently had her DESIGNER/WRITER shunt placed 10/16/2022 at [facility].? Patient did have adjustment 2 weeks ago and willplan to have a follow- up appointment at the end of November.? Patient states she getsright upper quadrant pain she can be bandlike pressure abdomen states she gets it with eating ice cream, ham and cheese sandwiches patient denies any pain in the middle night or in the morning prior to eating.? Initially the plan was for the patient to call and get this set up prior to getting her DESIGNER/WRITER shunt placed. ROS General General: Yes weight change and fatigue; No weakness HEENT HEENT: No difficulty swallowing, eye injury, eye surgery, swollen glands or hoarseness Endo Endocrine: No thyroid disease, diabetes mellitus, thyroid cancer, Hair loss, heat intolerance or cold intolerance Skin Skin: No rash or changing moles Breast Breast: No left breast lump, right breast lump, nipple discharge, breast pain, abnormal mammogram, abnormal US or breast enlargement Musc Musculoskeletal: Yes arthritis; No back problems, rheumatoid arthritis, gout or joint pain Cardio Cardiovascular: No murmur, pacemaker, heart disease, atrial fibrillation, high blood pressure, heart attack, heart stent, palpitations, shortness of breat withexertion or chest pain Psych Psychiatric: No depression, anxiety or hearing voices Resp Respiratory: No shortness of breath, No sleep apnea, No cough, No COPD, No asthma, No emphysema and No wheezing Gastro Gastrointestinal: Yes abdominal pain, Yes nausea or vomiting, Yes diarrhea, Yes constipation, No blood in stool, No acid reflux, No hemorrhoids, No ulcers, Yes gallbladder problem and No black,tarry stools Sotero Hematologic: No blood thinners, No blood disorders, No bleeding, No anemia and No blood clots Neuro Neurologic: No system reviewed and no additional complaints, except as documented, No as per HPI, No abnormal gait, No abnormal hearing, No abnormal movements, No abnormal speech, No behavioral changes, No burning sensations, No confusion, No convulsions, No disequilibrium, No dizziness, No localized weakness, No frequent falls, No headache(s), No lack of coordination, No loss ofvision, No memory loss, Yes numbness, No other visual disturbances, No radicularpain, No restless legs, No sensory deficit, No syncope, Yes tingling, No tremor(s), No weakness and No other Exam Const General: cooperative, healthy appearing and no acute distress [facility] Head: normal to inspection Other: DESIGNER/WRITER shunt palpated at the apex of scalp and the right neck Resp Effort & Inspection: normal respiratory effort Cardio Rate: regular rate GI Inspection: non-distended Palpation: soft, no guarding and nontender Skin General: no rashes or lesions noted Neuro General: patient oriented x3 Extrem General: no clubbing, cyanosis or edema Psych Affect: normal affect Assessment and Plan Assessment and Plan (1) Biliary dyskinesia: ?Status:?Acute (2) S/P DESIGNER/WRITER shunt: ?Status:?Acute Plan Discussed with the patient and her not have to check with imaging from [facility] to find out where exactly this shunt is placed also discussed that she would be at increased risk of infection due to surgery as initially a plan to do this prior.? Plan also discussed with patient's neurosurgeon. Reviewed the anatomy with the patient and discussed the procedure: laparoscopic cholecystectomy with possible cholangiograms, possible open. Review risks including but not limited to bleeding, infection, hernia, bile leak, retained gallstones requiring another procedure ERCP- Endoscopic Retrograde Cholangiopancreatography, injury to another organ (bile ducts, common bile duct,small bowel, etc.) and conversion to an open procedure. All questions were answered. Radha Singh M.D. Pager: [phone] [facility] [address] [place] [address], [address] [place] [address] Office: [phone] Coding Level of Care Code Off vis,est,level 4 Diagnoses Biliary dyskinesia? K82.8 S/P DESIGNER/WRITER shunt? Z98.2 11/21/22 0723 <Electronically signed by Radha Singh MD> Date Radha Singh MD 11/28/22 1022 <Electronically signed by Radha Singh MD> Cosigner Signature (if applicable): CC: Dr. Lilo Grullon MD; Dr. Radha Singh MD~ Signed ADDENDUM by Dr. Radha Singh MD on 11/28/22 at 1023 Addendum Addendum: I have examined the patient the following changes are noted: Did obtain surgicalclearance from the neurosurgeon Dr. Rodríguez 11/28/22 102<Electronically signed by Radha Singh MD> Cosigner Signature (if applicable): cc: Dr. Lilo Grullon MD; Dr. Radha Singh MD ~* Signed [facility] Work Phone: 1(861) 437-113505-04-2023 Miscellaneous Notes* Telephone Encounter - Lynn Murdock APRN.CNP - 11/21/2022 12:01 PM EDT Returned call to patient. She reported that yesterday she had a very strong impulse of wanting to vacuum her carpeting. She stated that the impulse was very severe and was wondering if the recent placement of the ventriculoperitoneal shunt had something to do with this impulse that she experienced.I discussed that I do not suspect that the ventriculoperitoneal shunt in the impulse to vacuum her carpet is related. She otherwise denied any neurological changes or concerns such as headache, confusion, lethargy, nausea etc. She was pleased with our conversation. She will follow-up as scheduled. DRE Ríos Neurosurgery Nurse Practitioner [facility] 12:02 PM 11/21/2022 [facility]23 Miscellaneous Notes* Telephone Encounter - Lynn Murdock APRN.CNP - 11/19/2022 4:24 PM EDT Returned call to patient. She stated that she felt dizzy today while at another doctors appt. Shereported that she felt a bit weak as well. She had not eaten all day and after eating felt better but still a bit weak. She denied any headache, nausea, vision changes, lethargy etc. We had seen Christian in the office less than one week ago and she was doing well. Given that she had no other neurological changes, I asked that she monitor her symptoms which were improved from earliertoday and if she developed any new symptoms or persistent symptoms as noted above to please contactthe office for recommendations. She agreed to do so. DRE Ríos Neurosurgery Nurse Practitioner [facility] 4:27 PM 11/19/2022 documented in this [facility]-26[facility]23 History of Present illness Narrative* Jean Rodríguez MD - 11/13/2022 2:30 PM EDT NEUROSURGERY POST OP NOTE Dr. Jean Rodríguez MD, FACS Date of visit: November 12, 2022 Patient Name: Ms.Tuula North Suggs Date of : 1945 Current Age: [age] year old MRN/E# [id number] Last Office Visit: 10/30/2022 SURGERY: Creation of ventriculoperitoneal shunt system programmable Codman valve set at 140 on 10/16/[address] Rodríguez. *Shunt valve setting decreased to 130 on 10/21/22. *Shunt valve setting decreased to 120 on 10/30/2022 Pre-Surgical Symptoms: Urinary retention, short term memory deficit, balance disturbance. Patient presents for a 4 week post operative visit. This is a 77-year-old female who was initially seen for consult in February 2022 as a referral from [place] emergency department. She had apparently sustained a fall on 03/11/2022 while working in the garden and losing her balance. During work-up she reported that she had been having balance issues over the previous year with multiple falls. CT of thebrain was obtained and was concerning for ventriculomegaly. Imaging was compared to prior imaging from September 2021 and appeared stable. Given the finding however recommendation was that she be worked up by neurosurgery for possible NPH (normal pressure hydrocephalus). During her visit she reported balance issues for many years that had worsened over the last 2. She also reported difficulty with her memory and urinary incontinence. She also reported that her sister recently underwent surgery for 2 unruptured aneurysms and wondered if she needed to be evaluated. It was also discussed that she had a lumbar fusion and had a recent CT of the lumbar spine indicated hardware failure. She was having persistent low back pain since surgery. Recommendation was to obtain an MRI/MRA of the brain for further evaluation. She was last seen in the office in March 2022 and reported persistent issues with short-term memory, balance and urinary frequency. Neurologically she was intact on exam without focal deficit and gait was evaluated to be more of a waddling type gait than spastic or apraxic gait. Imaging was reviewed and there was no note of a mass, lesion or ventricular size being out of proportion. It was recommended that she be evaluated by neurology for evaluation of possible dementia orif symptoms were indicating NPH. She followed-up after neurological examination to determine if shewould benefit from a ventriculoperitoneal shunt. It was determined so and it was completed as notedabove. She was seen on 10/30/2022 for a 2-week postop visit and reported that she had been discharged from rehab and had returned home. She denied headache or dizziness. She felt that her incontinence was improved but her gait was about the same . Her felt that her memory was about the same as it was before the shunt placement. Her incision was healing well without signs of infection. Neurologically she was intact with a compensated gait for which she utilized a walker. CT was obtained and showed no change in the size of the ventricular system and no evidence of subdural fluid collection. Hervalve was adjusted from 130-120. She was advised to follow-up in 2 weeks for a routine evaluation pr ompting her visit today. She states balance has improved since last visit but she denies any changes to memory or urinary symptoms. She presents for evaluation and plan of care. Incision: Healed PAST MEDICAL HISTORY Diagnosis Date Allergic rhinitis Arthritis Back C. difficile enteritis History of back surgery 07/21/2011 HLD (hyperlipidemia) Lymphocytic colitis Melanoma (HCC) right thigh NPH (normal pressure hydrocephalus) (HCC) [facility] (obstructive sleep apnea) Rotator cuff tear arthropathy of right shoulder 07/21/2012 Urinary retention PAST SURGICAL HISTORY Procedure Laterality Date ARTHRP KNE CONDYLE&PLATU MEDIAL&LAT COMPARTMENTS Right 10/2014 CARPAL TUNNEL 2009 bilateral COLONOSCOPY FLX DX W/COLLJ SPEC WHEN PFRMD 02-02-16 JOINT REPLACEMENT HX ORTHOPEDICS SURGERY HX PAST SURGICAL HISTORY OF 1999 bladder repair PAST SURGICAL HISTORY OF 2007 melanoma removal FAMILY HISTORY Problem Relation Age of Onset Heart Father late in life Breast Cancer Maternal Aunt Diabetes Other none Colon Cancer Other none Coronary Artery Disease Other none ALLERGIES Allergen Reactions Hydrocodone Bitartr* GI Upset Mesalamine Myalgia Oxycodone GI Upset Flagyl [Nitroimidaz* Other: See Comments metal mouth Scopolamine Other: See Comments Current Outpatient Medications Medication Sig Dispense Refill aspirin, enteric coated (ASPIRIN, ENTERIC COATED) 81 mg EC tablet Take 1 tablet by mouth once daily. To begin on 11/04/22 CALCIUM-VITAMIN D3 ORAL Take 1 capsule by mouth once daily. biotin 1 mg cap Take 1 capsule by mouth once daily. Melatonin 5 mg cap Take 1 capsule by mouth daily at bedtime. vit A-vit C-vit D-twkq-wvuhxn 7,160-113-100 fdwb-oj-xtmw tab Take 2 tablets by mouth once daily. tamsulosin (FLOMAX) 0.4 mg Take 1 capsule by mouth daily at bedtime. 90 capsule 3 rosuvastatin (CRESTOR) 5 mg tablet Take 1 tablet by mouth once daily. budesonide, enteric coated (ENTOCORT EC) 3 mg 24 hr capsule Take 2 capsules by mouth daily before breakfast. Resume after Dexamethasone completed omeprazole (PRILOSEC) 40 mg capsule Take 40 mg by mouth once daily. DULoxetine (CYMBALTA) 30 mg capsule Take 1 capsule by mouth daily at bedtime. multivitamin ORAL tablet Take 1 tablet by mouth once daily. 0 No current facility-administered medications for this visit. Review of Systems Constitutional: Negative for chills, diaphoresis (Negative for night sweats.) and fever. HENT: Negative for ear discharge and rhinorrhea. Eyes: Negative for discharge. Respiratory: Negative for cough, shortness of breath and wheezing. Cardiovascular: Negative for chest pain, palpitations and leg swelling. Gastrointestinal: Negative for constipation, diarrhea, nausea and vomiting. Endocrine: Negative for cold intolerance and heat intolerance. Genitourinary: Negative for frequency. Negative for urinary incontinence and urinary retention. Musculoskeletal: Positive for gait problem. Negative for back pain, joint swelling, myalgias and neck pain. Skin: Negative for rash (Negative for hives and skin lesions.). Allergic/Immunologic: Negative for environmental allergies and food allergies. Negative for contact allergy, seasonal allergies. Neurological: Negative for dizziness, seizures, syncope, weakness, light- headedness, numbness (Negative for numbness in extremities.) and headaches. Hematological: Does not bruise/bleed easily. Psychiatric/Behavioral: The patient is not nervous/anxious. Negative for depression. PAIN EVALUATION No data found in the last 1 encounters. BP 135/92 (BP Site: Left Arm, BP Position: Sitting, BP Cuff Size: Regular Adult) Pulse 79 Ht 5'3 (1.6 m) Wt 171 lb 1.2 oz (77.6 kg) SpO2 97% BMI 30.30 kg/m PHYSICAL EXAM: Mental State : Alert, memory function unremarkable. Attention span and concentration normal for patient's age. Speech normal, no receptive or expressive speech deficit. Recent and remote memory normal. Orientation : Oriented to person, place and time. Higher Cortical Function : Intact speech and language. Spontaneous speech and comprehension normal.Fund of knowledge intact for pt level of education. Cranial Nerves : II: No visual field cut no blurring, Makes and sustains eye contact III, IV, : Normal, no double vision or drooping. Pupils equal and reactive to light. Extraocularmuscles intact. No nystagmus V: Normal sensation on the face, normal jaw movements VII: No paresis on either side VIII: No gross hearing deficit IX: Good and equal shoulder shrugs XII: Tongue midline, no fasciculations Sensory: Normal Sensation in upper and lower extremities and trunk to touch and noxious stimuli. Motor: Normal muscle tone and bulk. No tremor or uncontrollable movements. No spasticity or tremor. Strength: Upper Extremities : R L Deltoid 5/5 5/5 Biceps 5/5 5/5 Triceps 5/5 5/5 Wrist Ext 5/5 5/5 Wrist Flx 5/5 5/5 Hand Int 5/5 5/5 Lower Extremities : Hip Flexors 5/5 5/5 Hip Extensors 5/5 5/5 Hip Abductors 5/5 5/5 Straight leg Neg Neg Ankle dorsiflex 5/5 5/5 Ankle Plantar 5/5 5/5 Heel Walking intact intact Toe Walking intact intact Reflexes : Biceps 2+ 2+ Triceps 2+ 2+ Wrist 2+ 2+ Patellar 2+ 2+ Achilles 2+ 2+ Noland's Neg Neg Tinel's Neg Neg Phalen's Neg Neg Cerebellar Function : Normal finger to nose. Normal rapid alternating movements. No ataxia. Negative Romberg. Gait and Station: Normal gait. No assistive device usage. Pulmonary: Lungs without cough, audible wheeze. Respirations unlabored. Cardiac: Regular rate and rhythm. No murmer, gallop or rub. IMAGING: No new imaging ASSESSMENT/PLAN: 1. NPH (normal pressure hydrocephalus) ([facility]) - ICD9: 331.5, ICD10: G91.2 (primary diagnosis) Patient is here for a follow-up visit. She underwent a ventriculoperitoneal shunt which at the present time is set at 120 mm. The shunt sites are well- healed and the shunt valve pumps and releases easily. I noticed that her gait has improved. The plan is to keep the setting as it is now and see herin 1 month with a CAT scan. - CT BRAIN WO IVCON 2. S/P ventriculoperitoneal shunt - ICD9: V45.2, ICD10: Z98.2 - CT BRAIN WO IVCON Jean Rdoríguez MD Return in about 1 month (around 12/13/2022) for review of imaging and plan of care. This note was partially generated using Secure Outcomes voice recognition system, and there may be some incorrect words, spellings, and punctuation that were not noted in checking the note before saving. documented in this encounterOhiohealth04-12-2023 History of Present illness Narrative* Jean Rodríguez MD - 10/30/2022 11:00 AM EDT NEUROSURGERY POST OP NOTE Dr. Jean Rodríguez MD, FACS Date of visit: October 30, 2022 Patient Name: Ms.Tuula North Suggs Date of : 1945 Current Age: [age] year old MRN/E# [id number] Last Office Visit: Post op SURGERY: Creation of ventriculoperitoneal shunt system programmable Codman valve set at 140 on 10/16/[address] Rodríguez. Shunt valve setting decreased to 130 on 10/21/22. Pre-Surgical Symptoms: Urinary retention, short term memory deficit, balance disturbance. Patient presents for their 1 post operative visit. This is a 77-year-old female who was initially seen for consult in February 2022 as a referral from [place] emergency department. She had apparently sustained a fall on 03/11/2022 while working in the garden and losing her balance. During work-up she reported that she had been having balance issues over the previous year with multiple falls. CT of the brain was obtained and was concerning for ventriculomegaly. Imaging was compared to prior imaging from September 2021 and appeared stable. Given the finding however recommendation was that she be worked up by neurosurgery for possible NPH (normal pressure hydrocephalus). During her visit she reported bal ance issues for many years that had worsened over the last 2. She also reported difficulty with hermemory and urinary incontinence. She also reported that her sister recently underwent surgery for 2unruptured aneurysms and wondered if she needed to be evaluated. It was also discussed that she hada lumbar fusion and had a recent CT of the lumbar spine indicated hardware failure. She was having p ersistent low back pain since surgery. Recommendation was to obtain an MRI/MRA of the brain for further evaluation. She was last seen in the office in March 2022 and reported persistent issues with short-term memory, balance and urinary frequency. Neurologically she was intact on exam without focal deficit and gait was evaluated to be more of a waddling type gait than spastic or apraxic gait.Imaging was reviewed and there was no note of a mass, lesion or ventricular size being out of proportion. It was recommended that she be evaluated by neurology for evaluation of possible dementia or if symptoms were indicating NPH. She followed-up after neurological examination to determine if she would benefit from a ventriculoperitoneal shunt. It was determined so and it was completed as noted above. Since discharge she states that she was discharged from rehab and she is at home right now. She denies headache or dizziness. She says that her incontinence is improved but her gait is about the sameand her says that her memory is about the same as it was before. . She presents for evaluation and plan of care. Incision: No incision site problems have been reported. PAST MEDICAL HISTORY Diagnosis Date Allergic rhinitis Arthritis Back C. difficile enteritis History of back surgery 07/21/2011 HLD (hyperlipidemia) Lymphocytic colitis Melanoma (HCC) right thigh NPH (normal pressure hydrocephalus) (HCC) [facility] (obstructive sleep apnea) Rotator cuff tear arthropathy of right shoulder 07/21/2012 Urinary retention PAST SURGICAL HISTORY Procedure Laterality Date ARTHRP KNE CONDYLE&PLATU MEDIAL&LAT COMPARTMENTS Right 10/2014 CARPAL TUNNEL 2009 bilateral COLONOSCOPY FLX DX W/COLLJ SPEC WHEN PFRMD 02-02-16 JOINT REPLACEMENT HX ORTHOPEDICS SURGERY HX PAST SURGICAL HISTORY OF 1999 bladder repair PAST SURGICAL HISTORY OF 2007 melanoma removal FAMILY HISTORY Problem Relation Age of Onset Heart Father late in life Breast Cancer Maternal Aunt Diabetes Other none Colon Cancer Other none Coronary Artery Disease Other none ALLERGIES Allergen Reactions Hydrocodone Bitartr* GI Upset Mesalamine Myalgia Oxycodone GI Upset Flagyl [Nitroimidaz* Other: See Comments metal mouth Scopolamine Other: See Comments Current Outpatient Medications Medication Sig Dispense Refill [START ON 11/04/2022] aspirin, enteric coated (ASPIRIN, ENTERIC COATED) 81 mg EC tablet Take 1 tablet by mouth once daily. To begin on 11/04/22 acetaminophen (TYLENOL) 325 mg tablet Take 1-2 tablets by mouth every 6 hours as needed for pain. CALCIUM-VITAMIN D3 ORAL Take 1 capsule by mouth once daily. MULTIVITAMIN WITH FOLIC ACID ORAL Take 1 capsule by mouth once daily. biotin 1 mg cap Take 1 capsule by mouth once daily. Melatonin 5 mg cap Take 1 capsule by mouth daily at bedtime. vit A-vit C-vit H-rmgp-btynui 7,160-113-100 vmad-bg-obnz tab Take 2 tablets by mouth once daily. tamsulosin (FLOMAX) 0.4 mg Take 1 capsule by mouth daily at bedtime. 90 capsule 3 rosuvastatin (CRESTOR) 5 mg tablet Take 1 tablet by mouth once daily. budesonide, enteric coated (ENTOCORT EC) 3 mg 24 hr capsule Take 2 capsules by mouth daily before breakfast. Resume after Dexamethasone completed omeprazole (PRILOSEC) 40 mg capsule Take 40 mg by mouth once daily. DULoxetine (CYMBALTA) 30 mg capsule Take 1 capsule by mouth daily at bedtime. multivitamin ORAL tablet Take 1 tablet by mouth once daily. 0 No current facility-administered medications for this visit. Review of Systems PAIN EVALUATION No data found in the last 1 encounters. There were no vitals taken for this visit. PHYSICAL EXAM: Mental State : Alert, memory function unremarkable. Attention span and concentration Normal for patient's age. Recent and remote memory normal Orientation : Oriented to time place and person Higher Cortical Function : Intact speech and language. Spontaneous speech and comprehension normal.Fund of knowledge intact for pt level of education. Cranial Nerves : II: No visual field cut no blurring. Makes and sustains eye contact III, IV, normal, no double vision or drooping. Pupils equal and reactive to light. Extraocular muscles intact. No nystagmus V Normal sensation on the face, normal jaw movements VII No paresis on either side. VIII No gross hearing deficit IX Normal palatal movements XI Good and equal shoulder shrus XII Tongue midline, no fasciculation Sensory : Normal Sensation in upper and lower extremities and trunk to touch and Noxious stimuli. Motor : Normal muscle tone and bulk. No tremor or uncontrollable movements No spasticity . Strength: Upper Extremities : R L Deltoid 5 5 Biceps 5 5 Triceps 5 5 Wrist Ext 5 5 Wrist Flx 5 5 Hand Int. 5 5 Lower Extremities : Hip Flexors 5 5 Hip Extensors 5 5 Hip Abductors 5 5 Hip Adductors 5 5 Quads 5 5 Hamstrings 5 5 Ankle dorsiflex 5 5 Ankle plantars 5 5 Heel Walking 5 5 Toe Walking 5 5 Reflexes : Biceps 2 2 Triceps 2 2 Wrist 2 2 Patellar 2 2 Achilles 2 2 Noland's Neg Neg Plantars Neg Neg Cerebellar Function : Normal finger to nose and rapid alternating movements. No ataxia Gait and Station: Wobbly using a walker IMAGING: No new imaging ASSESSMENT/PLAN: 1. NPH (normal pressure hydrocephalus) (HCC) - ICD9: 331.5, ICD10: G91.2 (primary diagnosis) Patient status post shunt implantation with programmable valve at 130 mm who presents to the after she was discharged from rehab for suture removal and assessment of the results of the shunt. Shunt surgical sites appear well-healed and old sutures were removed. There is no evidence of dehiscence orinfection. She and her say that her memory is about the same and that her gait is slightly better but she is still using a walker. She claims that her incontinence is better than it was before. Upon discharge from the hospital we checked her with a CAT scan and adjusted her shunt to 130 from 140. I recommended a CT scan today to determine if she does not have any collapse of the ventricles and subdural collection that I can lower the shunt setting from 1 30-1 20 as she had low pressure when she had the spinal tap. This will be done in the hope of improving her clinical picture following the shunt procedure as we planned to do this gradually. 2. S/P ventriculoperitoneal shunt - ICD9: V45.2, ICD10: Z98.2 Jean Rodríguez MD Addendum: A CT scan was done on this patient which showed no change in the size of the ventricular system with a shunt in and there was no evidence of subdural fluid collection so as planned I adjusted her shunt valve from 1 30-1 20 and I will check her again in the office in 2 weeks. I warned her about symptoms of headache dizziness worsening neurologic status in which case he should take her to the emergency room or call me. Follow-up visit: 2 weeks This note was partially generated using [employer] voice recognition system, and there may be some incorrect words, spellings, and punctuation that were not noted in checking the note before saving. documented in this encounterOhiohealth03-16-2023 History and physical note * Manju Galvans, PLUMBER GASFITTER.BRIM SHAPER - 10/03/2022 10:00 AM EDT Images from the original note were not included. HISTORY AND PHYSICAL EXAMINATION SERVICE DATE: 10/03/2022 SERVICE TIME: 10:00 AM PRIMARY CARE PHYSICIAN: Lilo Grullon MD REASON FOR VISIT: Christian Suggs is a 77 year old female who is scheduled for * No surgery found * at the request of Dr. Jean Rodríguez for routine H&P. My final recommendation will be communicated back to the requesting physician by way of shared medical record or letter. The reason for this visit is to perform a comprehensive review of the patient's past medical history, assess their current health status and obtain any additional testing required based on anesthesiaguidelines. We will also identify any potential anesthesia problems or contraindications to the planned procedure. 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) Balance Problems Thyroid Nodule Family History of Ischemic Heart Disease and Other Diseases of The Circulatory System Urinary Retention Fall At Home, Initial Encounter Uti (Urinary Tract Infection) Endometrial Mass Obesity, Class I, Bmi 30-34.9 Aftercare Nph (Normal Pressure Hydrocephalus) (Hcc) [facility] (Obstructive Sleep Apnea) History of Pulmonary Embolism Hld (Hyperlipidemia) Preop Testing Rheumatoid Arthritis (Hcc) COVID-19 Immunization Status Overdue - COVID-19 VACCINE (5 - Booster) Overdue since 12/14/2020 10/19/2020 Outside Immunization: COVID-19, mRNA, LNP-S, PF, 100 mcg/0.5mL dose or 50 mcg/0.25mL dose 10/15/2020 Outside Immunization: COVID-19, mRNA, LNP-S, PF, 100 mcg/0.5mL dose or 50 mcg/0.25mL dose 10/04/2020 Imm Admin: COVID-19 original vaccine, full dose, monovalent (MODERNA) Only the first 3 history entries have been loaded, but more history exists. CHIEF COMPLAINT: NPH (normal pressure hydrocephalus) HPI: Patient reports she is being followed by neurology for NPH. She reports she has had spinal tapprocedures. Today, she denies pain, rating 0 out of 10 on the numeric pain scale. Complains of occasional dizziness, confusion and balance issues. She denies fatigue, headaches, shortness of breath or chest pain at this time. After discussion with surgeon patient agreeable to surgical intervention. REVIEW OF SYSTEMS: General: No weight loss, malaise or fevers. Neurological: Positive for: TIA. Negative for: headaches, seizures and strokes. Respiratory: Positive for: obstructive sleep apnea and CPAP/BiPAP noncompliant. Negative for: asthma, COPD, current cough and pneumonia within 6 weeks. Cardiovascular: +H/O PE Positive for: hyperlipidemia Negative for: arrhythmia, CAD, chest pain, CHF, hypertension and murmur/valvular heart disease. GI: Positive for: GERD Negative for: abdominal pain, nausea and vomiting. : + Urethral prolapse; Urinary retention - self calth Negative for: dysuria, hematuria and renal failure. Endocrine: Negative for: diabetes mellitus and hypothyroidism. Hematology: No history of bleeding or clotting disorder. Patient is not taking anti-coagulation or platelet medications. No history of hematological symptoms or problems. Negative for: anemia and factor V Leiden. Oncology: No history of CA metastasis, chemo within 30 days, or radiotherapy within 90 days. No history of oncological symptoms or problems. Psych: No history of psychiatric symptoms or problems. Musculoskeletal: +OP, +OA Positive for: joint pain (neck) and rheumatoid arthritis. Negative for: swelling. Skin: Negative for lesions, rash and itching. PAST MEDICAL HISTORY Diagnosis Date Allergic rhinitis Arthritis Back C. difficile enteritis History of back surgery 07/21/2011 HLD (hyperlipidemia) Lymphocytic colitis Melanoma (HCC) right thigh NPH (normal pressure hydrocephalus) (HCC) [facility] (obstructive sleep apnea) Rotator cuff tear arthropathy of right shoulder 07/21/2012 Urinary retention PAST SURGICAL HISTORY Procedure Laterality Date ARTHRP KNE CONDYLE&PLATU MEDIAL&LAT COMPARTMENTS Right 10/2014 CARPAL TUNNEL 2009 bilateral COLONOSCOPY FLX DX W/COLLJ SPEC WHEN PFRMD 02-02-16 JOINT REPLACEMENT HX ORTHOPEDICS SURGERY HX PAST SURGICAL HISTORY OF 1999 bladder repair PAST SURGICAL HISTORY OF 2007 melanoma removal FAMILY HISTORY Problem Relation Age of Onset Heart Father late in life Breast Cancer Maternal Aunt Diabetes Other none Colon Cancer Other none Coronary Artery Disease Other none Social History Tobacco Use Smoking status: Never Smokeless tobacco: Never Vaping Use Vaping Use: Never used Substance Use Topics Alcohol use: No Drug use: No Prior to Admission medications as of 10/03/22 1029 Medication Sig Last Dose Taking aspirin, enteric coated (ASPIRIN, ENTERIC COATED) 81 mg EC tablet Take 81 mg by mouth once daily. Taking Yes CALCIUM-VITAMIN D3 ORAL Take 1 capsule by mouth once daily. Taking Yes biotin 1 mg cap Take 1 capsule by mouth once daily. Taking Yes vit A-vit C-vit P-tmqu-zxsivg 7,160-113-100 ezxb-no-vbjf tab Take 2 tablets by mouth once daily. Taking Yes tamsulosin (FLOMAX) 0.4 mg Take 1 capsule by mouth daily at bedtime. Taking Yes rosuvastatin (CRESTOR) 5 mg tablet Take 1 tablet by mouth once daily. Taking Yes budesonide, enteric coated (ENTOCORT EC) 3 mg 24 hr capsule Take 2 capsules by mouth daily before breakfast. Resume after Dexamethasone completed Taking Yes omeprazole (PRILOSEC) 40 mg capsule Take 40 mg by mouth once daily. Taking Yes meloxicam (MOBIC) 7.5 mg tablet Take 1 tablet by mouth once daily. Take this directly following a meal Taking Yes DULoxetine (CYMBALTA) 30 mg capsule Take 1 capsule by mouth daily at bedtime. Taking Yes multivitamin ORAL tablet Take 1 tablet by mouth once daily. Taking Yes MULTIVITAMIN WITH FOLIC ACID ORAL Take 1 capsule by mouth once daily. Patient not taking: Reported on 10/03/2022 Not Taking Melatonin 5 mg cap Take 1 capsule by mouth daily at bedtime. Patient not taking: Reported on 10/03/2022 Not Taking No medication comments found. ALLERGIES Allergen Reactions Hydrocodone Bitartr* GI Upset Mesalamine Myalgia Oxycodone GI Upset Flagyl [Nitroimidaz* Other: See Comments metal mouth Scopolamine Other: See Comments Objective PHYSICAL EXAM: General: alert and oriented and healthy appearance. Pertinent negatives noted - not distressed. Skin: normal color, no rash or lesions. HEENT: EOM intact. Cardiovascular: regular rate and rhythm, normal S1 and S2, no rub, murmurs, or gallop. Respiratory: normal breath sounds, no wheezes or crackles. No chest wall deformity or tenderness. Abdomen: bowel sounds present. Extremities: no deformity, no edema or tenderness, no joint swelling or clubbing. Neurological: + Normal cognition; slow steady gait with assistance this visit. PAIN ASSESSMENT: Pain Pain Level: 0 VITALS: BP 131/85 Pulse 92 Temp 96.8 Resp 16 Ht 5' 3.5 (1.61m) Wt 166 lb 6.4 oz (75.5kg) SpO2 96% BMI 29.01 kg/(m^2). Diagnostic tests reviewed for today's visit: Lab Value Units Date High Low HB 13.6 g/dL 07/04/2022 15.5 11.5 HCT 40.9 % 07/04/2022 46.0 36.0 WBC 10.38 k/uL 07/04/2022 11.00 3.70 PLT 214 k/uL 07/04/2022 400 150 NA 135 mmol/L 07/04/2022 144 136 K 4.4 mmol/L 07/04/2022 5.1 3.7 GLUC 95 mg/dL 07/04/2022 99 74 BUN 39 mg/dL 07/04/2022 21 7 CREAT 0.86 mg/dL 07/04/2022 0.96 0.58 PTSEC No results within date range. INR No results within date range. APTT No results within date range. ALT 20 U/L 06/27/2022 38 7 AST 20 U/L 06/27/2022 35 13 TBILI <0.2 mg/dL 06/27/2022 1.3 0.2 TSH No results within date range. Lab Value Units Date High Low HCGQT No results within date range. UHCG No results within date range. HCG, BODY* No results within date range. Lab Value Units Date High Low ABORHD No results within date range. ABSCREEN No results within date range. No results found for: HBA1C Recent Results (from the past 8760 hour(s)) ECG COMPLETE Collection Time: 06/22/22 4:42 PM Result Value Ventricular Rate 90 Atrial Rate 90 P-R Interval 156 QRS Duration 82 QT Interval 360 QTC Calculation (Bazett) [address] Cal[address] R [address] 7 Calculated T [address] 44 Impression NORMAL SINUS RHYTHM INFERIOR INFARCT , AGE UNDETERMINED CANNOT RULE OUT ANTERIOR INFARCT , AGE UNDETERMINED ABNORMAL ECG WHEN COMPARED WITH ECG OF 22-OCT-2021 17:59, INFERIOR INFARCT IS NOW PRESENT Confirmed by MD KUSHAL, GISELA ([id number]) on 06/24/2022 9:04:43 PM No results found for this or any previous visit (from the past 32903 hour(s)). Assessment Patient has the following medical conditions which may affect gonzález-operative course: Preop testing Assessment : See Note for medical conditions which may affect gonzález-operative course was addressed in visit today. HLD (hyperlipidemia) Assessment: Followed by PCP-taking statins [facility] (obstructive sleep apnea) Assessment: Denies use of CPAP/BiPAP at this time. History of pulmonary embolism Assessment: Patient reports history of PE -denies use of meds at this time Rheumatoid arthritis (HCC) Assessment: Followed by PCP-denies use of medications at this time. Morales Activity Status Index: METS: Take care of self; that is eating, dressing, bathing, using the toilet (2.75 METs) DASI Score: 2.75 (+ Patient denies use of stairs at this time; balance issues due to NPH - slow steady gait with assistance this visit. Use of walker or cane; wheelchair for long distances.) Patient denies any chest pain or undue shortness of breath with the above physical activity. Clinical Frailty Scale: 4. Apparently vulnerable ARISCAT Score: Age: 51-80 Preoperative SpO2: >=96% Respiratory infection in the last month: No Preoperative anemia: No Surgical incision: peripheral Duration of surgery: >3 hrs Emergency procedure: No ARISCAT Score: 26 ANESTHESIA FINDINGS: Intubation History: No history of difficult intubation Significant Anesthesia Considerations: potential slow emergence Airway History: No history of difficult airway I - PHYSICAL EVALUATION AIRWAY Patient intubated: No. DENTAL Dental findings: teeth intact. II - ANESTHESIA PLAN Anesthetic Plan: general Beta Clarke Monitoring Plan Post Procedure Analgesic Plan Prepared for Surgery: CONSULTS: The following consults have been initiated at this time: primary care/internal medicine. Planned Anesthetic: general The Following Tests/Procedures Have Been Initiated: Orders Placed This Encounter CBC Standing Status: Future Number of Occurrences: 1 Standing Expiration Date: 12/02/2022 BASIC METABOLIC PNL Standing Status: Future Number of Occurrences: 1 Standing Expiration Date: 12/02/2022 Type and Screen, 30 day Standing Status: Future Number of Occurrences: 1 Standing Expiration Date: 12/02/2022 Order Specific Question: [facility] Planned Surgery or Procedure: Answer: [facility] Implantable Devices: Bilateral knees, Right hip, Bilateral IOLs, Spinal Assessment/Plan NPH (normal pressure hydrocephalus) (HCC) [G91.2] PLAN Planned Procedure: IMPLANT SHUNT VENTRICULOPERITONEAL; LAPAROSCOPIC IMPLANT SHUNT VENTRICULOPERITONEAL The Following Tests/Procedures Have Been Initiated: CBC, BMP and T&S ordered in epic by AGUILAR Instructions Given to Patient: Instructions located in the after visit summary. Hibiclens given and instructions provided. Patient given verbal and written preop instructions and voices comprehension and compliance. I spent a total of 40 minutes on the date of the service which included preparing to see the patient, [id number]-[id number] patient care, completing clinical documentation, obtaining and/or reviewing separately obtained history, performing a medically appropriate examination, counseling and educating the pat ient/family/caregiver, and ordering medications, tests, or procedures. SIGNATURE: Manju Douglas APRN.CNP PATIENT NAME: Christian Suggs DATE: October 02, 2022 TIME: 4:52 PM PAGER/CONTACT #: documented in this encounterOhiohealth03-15-2023 Instructions* Patient Instructions* Manju Douglas APRN.CNP - 10/02/2022 4:52 PM EDT PATIENT PREOPERATIVE INSTRUCTIONS Your surgeon has scheduled you for your procedure at this surgery center: [facility] [phone] [address] [facility]. [place], [place] [address] Please enter through the main entrance, and proceed to the blue elevators. The surgery center is located left of the blue elevators. Please read below carefully for your personalized instructions. Arrival Time for Surgery: DATE: 10/16/2022 - To obtain your ARRIVAL TIME for surgery, call your physician's office the day before your surgery. - If your surgery is scheduled for Friday, call the Friday before. Your surgeon s adult nurse practitioner will tell you what time to call the office. Dietary Restrictions: -Nothing to eat after midnight. Between midnight and four hours prior to your surgery time, you mayhave 12 ounces of clear liquids (Apple juice, carbonated beverages, Gatorade, black coffee or tea) unless your surgeon specifies otherwise. Blood Thinning Medications: - Stop NSAIDS (Ibuprofen, Advil, Aleve, Motrin, Celebrex, Mobic, Voltaren, Diclofenac, etc.) 7 daysbefore surgery, as directed by your surgeon. -You may take Tylenol or pain medications that do not contain Aspirin or NSAIDs. - Stop Vitamin E, fish oil, multivitamins, Marijuana, CBD oil and other over the counter herbals and dietary supplements 7 days before surgery. ?-This would not apply to cancer patients who are prescribed Marinol or any other prescription formon marijuana or CBD. -IF YOU TAKE ANY OF THE FOLLOWING BLOOD THINNERS, PLEASE CONTACT YOUR SURGEON AND THE PHYSICIAN WHOPRESCRIBES IT FOR YOU IN ORDER TO GET PERIOPERATIVE INSTRUCTIONS SOON POSSIBLE. BLOOD THINNERS: Aspirin , Coumadin, Plavix, Eliquis, Pradaxa, Xarelto, Lovenox, Brilinta, Effient, Savaysa, Arixtra, etc Medications: Approved medications to take the morning of surgery with a sip of water: BP, Heart, thyroid, psych,seizure, and pain medications excluding NSAIDS. Use inhalers as prescribed. Please bring inhalers. Medications to be taken with small amount of fluid on the morning of surgery: If these are morning medications, go ahead and take: Approved medications to take the morning of surgery with a sip of water: BP, Heart, thyroid, psych, seizure, and pain medications excluding NSAIDS. Use inhalers as prescribed. Please bring inhalers. Please follow up with the provider that manages your diabetes and how to prepare you for surgery. -If you are taking the following medications for Type 2 diabetes: Canagliflozin (INVOKANA), dapagliflozin (FARXIGA), and empagliflozin (JARDIANCE) should each be discontinued at least 3 days before scheduled surgery. Ertugliflozin (STEGLATRO) should be discontinued at least four days before scheduled surgery. If you start any new medications after today's visit, please contact the surgeon's office. Important Reminders: - If you use CPAP/BIPAP, bring the machine with you to the surgery center. - If you are prescribed inhalers for breathing, continue using them AND bring them to the surgery center. - Candy, mints, gum and tobacco products are NOT permitted the morning of surgery. - Hearing aids, dentures and glasses may be worn the morning of surgery. - NO jewelry, body piercings, makeup, hairpins or contacts are to be worn the day of surgery. -Oral hygiene and a shower or bath is required the evening before or the morning of surgery. Use the [employer] body wash supplied to you along with the instruction. - NO lotion, creams, powders or deodorants on the skin the day of surgery -Wear loose, comfortable clothing that will accommodate bandages. -Your length of stay will be determined by your surgeon - You will need to have someone else (Family or friend) drive you home once discharged from the hospital. You are not allowed to drive yourself home after surgery. - YOU MUST HAVE A RESPONSIBLE DIESEL PLANT OPERATOR TAKE YOU HOME. A MACHINIST FIRST CLASS, CAB OR UBER DIESEL PLANT OPERATOR CANNOT BE MADEA RESPONSIBLE DIESEL PLANT OPERATOR. - We recommend that a responsible person stays with you overnight to take care of you. - You cannot stay in a hotel alone after outpatient surgery. You will not be permitted to have yoursurgery, if you do not have someone to take care of you. - If you have a stimulator, implant or pump that requires a remote please bring the remote with youday of surgery. Given COVID 19 pandemic, 1-2 visitors are allowed to be in the hospital. You will enter at the mainentrance of the hospital and check in at the [facility], where you will provide points of contact. [facility] current visitor policy: may bring 1-2 visitors with you morning of surgery, they must wear a mask at all times while in the hospital, and during surgery they may be asked to wait in the car, andthe surgeon will call them with updates. Your surgeon office will contact you prior to surgery if you need COVID-19 testing. If you develop symptoms such as a fever, cold, or flu, or have other changes to your health within TWO DAYS of scheduled surgery or the morning of surgery, please contact the surgery center above. You should have a 72-hour period between getting your COVID vaccine and date of surgery. Personal Belongings: - Leave ALL valuables and money at home or with family members. - You will need a form of ID and insurance card to check in the morning of surgery. - You will have to wear a hospital gown during your stay but if you wish to bring undergarments forafter surgery you may. testing Anesthesia requires testing on all females under the age of 55 without history of tubal ligation or hysterectomy. Manju Douglas APRN.CNP 10/03/22 documented in this encounterOhiohealth03-09-2023 History of Present illness Narrative* Jean Rodírguez MD - 09/26/2022 2:00 PM EST NEUROSURGERY FOLLOW UP OFFICE NOTE Dr. Jean Rodríguez MD, FACS Date of visit: September 26, 2022 Patient Name: Ms.Tuula [place] Suggs Date of : 1945 Current Age: [age] year old Sex: female MRN/E# [id number] Last Office Visit: March 26, 2022 Chief Complaint: Patient presents with: Established Patient SUBJECTIVE: The patient presents as a follow up with new imaging (MRI B) for evaluation. This is a 77-year-old female who was initially seen for consult in February 2022 as a referral from [place] emergency department. She had apparently sustained a fall on 03/11/2022 while working in the garden and losing her balance. During work-up she reported that she had been having balance issues over the previous year with multiple falls. CT of the brain was obtained and was concerning for ventriculomegaly. Imaging was compared to prior imaging from September 2021 and appeared stable. Given the finding however recommendation was that she be worked up by neurosurgery for possible NPH (normal pressure hydrocephalus). Duringher visit she reported balance issues for many years that had worsened over the last 2. She also reported difficulty with her memory and urinary incontinence. She also reported that her sister recently underwent surgery for 2 unruptured aneurysms and wondered if she needed to be evaluated. It was also discussed that she had a lumbar fusion and had a recent CT of the lumbar spine indicated hardware failure. She was having persistent low back pain since surgery. Recommendation was to obtain an MRI/MRA of the brain for further evaluation. She was last seen in the office in March 2022 and reported persistent issues with short-term memory, balance and urinary frequency. Neurologically she was intact on exam without focal deficit and gait was evaluated to be more of a waddling type gait than spastic or apraxic gait. Imaging was reviewed and there was no note of a mass, lesion or ventricular size being out of proportion. It was recommended that she be evaluated by neurology for evaluation of possible dementia or if symptoms were indicating NPH. She was advised to follow-up after neurological examination to determine if she would benefit from a ventriculoperitoneal shunt. Today she states she is overall doing well. She underwent testing for NPH and would like to discuss placement ofVP shunt. She presents for image review, evaluation and plan of care. Symptoms: Urinary retention - self calth PREVIOUS CONSERVATIVE TREATMENTS: None PREVIOUS SURGERY: SURGERY #1: L2-S1 TLIF PAIN EVALUATION No data found in the last 1 encounters. PAST MEDICAL HISTORY Diagnosis Date Allergic rhinitis Arthritis Back C. difficile enteritis History of back surgery 07/21/2011 Lymphocytic colitis Melanoma (HCC) right thigh Rotator cuff tear arthropathy of right shoulder 07/21/2012 Urinary retention PAST SURGICAL HISTORY Procedure Laterality Date ARTHRP KNE CONDYLE&PLATU MEDIAL&LAT COMPARTMENTS Right 10/2014 CARPAL TUNNEL 2009 bilateral COLONOSCOPY FLX DX W/COLLJ SPEC WHEN PFRMD 02-02-16 JOINT REPLACEMENT HX ORTHOPEDICS SURGERY HX PAST SURGICAL HISTORY OF 1999 bladder repair PAST SURGICAL HISTORY OF 2007 melanoma removal FAMILY HISTORY Problem Relation Age of Onset Heart Father late in life Breast Cancer Maternal Aunt Diabetes Other none Colon Cancer Other none Coronary Artery Disease Other none ALLERGIES Allergen Reactions Hydrocodone Bitartr* GI Upset Mesalamine Myalgia Oxycodone GI Upset Flagyl [Nitroimidaz* Other: See Comments metal mouth Scopolamine Other: See Comments Current Outpatient Medications Medication Sig Dispense Refill CALCIUM-VITAMIN D3 ORAL Take 1 capsule by mouth once daily. MULTIVITAMIN WITH FOLIC ACID ORAL Take 1 capsule by mouth once daily. biotin 1 mg cap Take 1 capsule by mouth once daily. iforbhyf-wupa-jdc1-C-charly-bosw (OSTEO BI-FLEX TRIPLE STRENGTH) 750 mg-644 mg- 30 mg-1 mg tab Take 1tablet by mouth once daily. Melatonin 5 mg cap Take 1 capsule by mouth daily at bedtime. vit A-vit C-vit Z-gpju-ibcqyb 7,160-113-100 sovu-oo-mymq tab Take 2 tablets by mouth once daily. aspirin 81 mg cap Take 1 capsule by mouth once daily. tamsulosin (FLOMAX) 0.4 mg Take 1 capsule by mouth daily at bedtime. 90 capsule 3 rosuvastatin (CRESTOR) 5 mg tablet Take 1 tablet by mouth once daily. budesonide, enteric coated (ENTOCORT EC) 3 mg 24 hr capsule Take 2 capsules by mouth daily before breakfast. Resume after Dexamethasone completed meloxicam (MOBIC) 7.5 mg tablet Take 1 tablet by mouth once daily. Take this directly following a meal 60 tablet 0 DULoxetine (CYMBALTA) 30 mg capsule Take 1 capsule by mouth daily at bedtime. omeprazole (PRILOSEC) 40 mg capsule Take 40 mg by mouth once daily. multivitamin ORAL tablet Take 1 tablet by mouth once daily. 0 Calcium-Vitamin D3-Vitamin K 500-100-40 mg-unit-mcg chew Take 1 tablet by mouth. CHEW TAB BEFORE SWALLOWING twice daily. 0 No current facility-administered medications for this visit. REVIEW OF SYSTEMS Review of Systems Constitutional: Negative for chills, diaphoresis (Negative for night sweats.) and fever. HENT: Negative for ear discharge and rhinorrhea. Eyes: Negative for discharge. Respiratory: Negative for cough, shortness of breath and wheezing. Cardiovascular: Negative for chest pain, palpitations and leg swelling. Gastrointestinal: Negative for constipation, diarrhea, nausea and vomiting. Endocrine: Negative for cold intolerance and heat intolerance. Genitourinary: Negative for frequency. Negative for urinary incontinence and urinary retention. Musculoskeletal: Negative for back pain, joint swelling, myalgias and neck pain. Skin: Negative for rash (Negative for hives and skin lesions.). Allergic/Immunologic: Negative for environmental allergies and food allergies. Negative for contact allergy, seasonal allergies. Neurological: Negative for dizziness, seizures, syncope, weakness, light- headedness, numbness (Negative for numbness in extremities.) and headaches. Hematological: Does not bruise/bleed easily. Psychiatric/Behavioral: The patient is not nervous/anxious. Negative for depression. OBJECTIVE: BP 145/91 Pulse 78 Ht 5' 5 (1.65m) Wt 173 lb 15.1 oz (78.9kg) SpO2 96% BMI 28.95 kg/(m^2). PHYSICAL EXAM: Mental State : Alert, memory function unremarkable. Attention span and concentration normal for patient's age. Speech normal, no receptive or expressive speech deficit. Recent and remote memory normal. Orientation : Oriented to person, place and time. Higher Cortical Function : Intact speech and language. Spontaneous speech and comprehension normal.Fund of knowledge intact for pt level of education. Cranial Nerves : II: No visual field cut no blurring, Makes and sustains eye contact III, IV, : Normal, no double vision or drooping. Pupils equal and reactive to light. Extraocularmuscles intact. No nystagmus V: Normal sensation on the face, normal jaw movements VII: No paresis on either side VIII: No gross hearing deficit IX: Good and equal shoulder shrugs XII: Tongue midline, no fasciculations Sensory: Normal Sensation in upper and lower extremities and trunk to touch and noxious stimuli. Motor: Normal muscle tone and bulk. No tremor or uncontrollable movements. No spasticity or tremor. Strength: Upper Extremities : R L Deltoid 5/5 5/5 Biceps 5/5 5/5 Triceps 5/5 5/5 Wrist Ext 5/5 5/5 Wrist Flx 5/5 5/5 Hand Int 5/5 5/5 Lower Extremities : Hip Flexors 5/5 5/5 Hip Extensors 5/5 5/5 Hip Abductors 5/5 5/5 Straight leg Neg Neg Ankle dorsiflex 5/5 5/5 Ankle Plantar 5/5 5/5 Heel Walking intact intact Toe Walking intact intact Reflexes : Biceps 2+ 2+ Triceps 2+ 2+ Wrist 2+ 2+ Patellar 2+ 2+ Achilles 2+ 2+ Noland's Neg Neg Tinel's Neg Neg Phalen's Neg Neg Cerebellar Function : Normal finger to nose. Normal rapid alternating movements. No ataxia. Negative Romberg. Gait and Station: Normal gait. No assistive device usage. Pulmonary: Lungs without cough, audible wheeze. Respirations unlabored. Cardiac: Regular rate and rhythm. No murmer, gallop or rub. IMAGING: MRI Brain WO/W IVCON (CINE) performed on 05/30/22 demonstrates: IMPRESSION: No evidence of an acute intracranial process. Ventriculomegaly which could relate to volume loss and/or communicating hydrocephalus such as NPH in the appropriate clinical setting. Patent CSF flow study without hyperdynamic flow. Lumbar Puncture completed on 09/09/[facility] at [facility] per Dr. Reza Stevens. -Opening and closing pressure 5 cm ASSESSMENT/PLAN: 1. NPH (normal pressure hydrocephalus) (HCC) - ICD9: 331.5, ICD10: G91.2 Patient is here for a follow-up visit after she was evaluated with regard to NPH and she underwent a lumbar puncture with 25 cc withdrawn following which the patient and the family report that she improved in her cognitive function as well as her gait and incontinence. To me this indicates that sheis a candidate for doing a ventriculoperitoneal shunt which I discussed with the patient and her family including failure infection malfunction intracranial bleed. I answered all their questions about the operative procedure and the patient decided to proceed with it understanding the risks complications side effects and alternatives. We will try and schedule her for the surgery at [facility] and we will have her cleared prior to the surgery and we will ask the assistance of generalsurgery Dr. Robby Seay to do the endoscopic insertion of the peritoneal catheter at the same time. Jean Rodríguez MD Follow Up: Return for OR - placement of DESIGNER/WRITER shunt. This note was partially generated using [employer] voice recognition system, and there may be some incorrect words, spellings, and punctuation that were not noted in checking the note before saving. documented in this encounterOhiohealth02-08-2023 Instructions* Patient Instructions* Shawnee Santillan PA-C - 08/28/2022 3:38 PM EST PATIENT PREOPERATIVE INSTRUCTIONS [facility]: [phone] -- [address] [address]. Please read below carefully for your personalized instructions. Dietary Restrictions: - No solid food after midnight. - You may have 12 ounces of clear liquids (water, clear juices such as apple juice or gatorade, carbonated beverages, clear tea, black coffee, jello) until 2 hours before scheduled arrival at facility. Medications: Unless instructed differently below, stay on all of your medications until your surgery. Approved medications to take the morning of surgery with a sip of water: budesonide, omeprazole. If you start any new medications after today's visit, please contact the surgeon's office. Blood Thinning Medications: - Stop NSAIDS (Ibuprofen, Advil, Aleve, Motrin, Celebrex, Mobic, etc.) 7 days before surgery, as directed by your surgeon. - Stop Aspirin 7 days before surgery, as directed by your surgeon. - Stop Vitamin E, ALL multi-vitamins, herbals and dietary supplements 7 days before surgery. - You may take Tylenol (Acetaminophen) or any of your pain medications that do not contain aspirin or NSAIDS as needed. Important Reminders: - Candy, mints, and tobacco products are NOT permitted the morning of surgery. - Hearing aids, dentures and glasses may be worn the morning of surgery. - NO jewelry, body piercings, makeup, hairpins or contacts are to be worn the day of surgery. If you develop symptoms such as a fever, cold, or flu, or have other changes to your health within TWO DAYS of scheduled surgery or the morning of surgery, please contact the surgery center above. Personal Belongings: -Please have photo ID and insurance cards. -If you do not have a copy of advance directives on file with us, please bring a copy with you on the day of surgery. - Leave ALL valuables and money at home or with family members. For Outpatient Procedures: - YOU MUST HAVE A RESPONSIBLE DIESEL PLANT OPERATOR TAKE YOU HOME. A MACHINIST FIRST CLASS OR REPLENISHMENT SPECIALIST CANNOT BE MADE A RESPONSIBLE DIESEL PLANT OPERATOR. - We recommend that a responsible person stays with you overnight to take care of you. - You cannot stay in a hotel alone after outpatient surgery. You will not be permitted to have yoursurgery, if you do not have someone to take care of you. Arrival Time for Surgery: - The Surgery Center or hospital where you are having surgery will call the afternoon before surgery (or Friday for Friday surgery) with a scheduled arrival time. - If you have not heard by 4 pm, please contact the surgery center above. Please be mercedes- The Surgery Center or hospital where you are having surgery will call the afternoon before surgery (or Friday for Friday surgery) with a scheduled arrival time. - If you have not heard by 4 pm, please contact the surgery center above.re that emergency situations arise, which may delay or change your surgical time. If this happens, we will notify you as soon as possible and regret any inconvenience. If you already have an Advance Directive, please fax a copy to [phone] or email to for it to be added to your chart. If you do not have an Advance Directive, you can find the appropriate form and more information at [email or web address]. We recommend that youcomplete the Advance Directive form found on the website and bring it with you the day of your surgery. It can be witnessed and scanned into your chart that day. documented in this encounterOhiohealth02-07-2023 History and physical note * Shawnee Santillan PA-C - 08/27/2022 4:49 PM EST Images from the original note were not included. HISTORY AND PHYSICAL EXAMINATION SERVICE DATE: 08/28/2022 SERVICE TIME: 3:35 PM PRIMARY CARE PHYSICIAN: Lilo Grullon MD REASON FOR VISIT: Christian Suggs is a 76 year old female who is scheduled for Procedure(s): HYSTEROSCOPY W/ POLYPECTOMY W/ D&C (N/A) at the request of Dr. Faby Santana MD for consultation. My final recommendation will be communicated back to the requesting physician by way of shared medical record or letter. 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) Balance Problems Thyroid Nodule Family History of Ischemic Heart Disease and Other Diseases of The Circulatory System Urinary Retention Fall At Home, Initial Encounter Uti (Urinary Tract Infection) Endometrial Mass Obesity, Class I, Bmi 30-34.9 Aftercare Nph (Normal Pressure Hydrocephalus) (Hcc) [facility] (Obstructive Sleep Apnea) History of Pulmonary Embolism Hld (Hyperlipidemia) COVID-19 Immunization Status Overdue - COVID-19 VACCINE (4 - Booster) Overdue since 12/14/2020 10/19/2020 Imm Admin: COVID-19 vaccine, full dose (MODERNA) 10/04/2020 Outside Immunization: Covid (Moderna) 09/22/2020 Imm Admin: COVID-19 vaccine, full dose (MODERNA) CHIEF COMPLAINT: endometrial polyp HPI: Christian Suggs is a 76 year old female presenting for pre- anesthesia consultation with her . Pt has history of endometrial mass found on CT A/P in 06/2022. Endometrial bx was benign but revealed endometrial polyp. Denies vaginal bleeding. Above procedure recommended to manage findings. Procedure scheduled on 09/05/2022 at [facility]. REVIEW OF SYSTEMS: General: No weight loss, malaise or fevers. Neurological: +NPH - tentative dx per , had stable ventriculomegaly on CT 06/2022, followswith outside neuro, Dr. Ruggiero, planning to do spinal tap after hysteroscopy. Positive for: dementia (mild cognitive impairment). Negative for: seizures, TIA and strokes. Respiratory: Positive for: obstructive sleep apnea and CPAP/BiPAP noncompliant. Negative for: asthma, bronchitis, COPD, current cough, tobacco use and URI < 2 weeks. Cardiovascular: Positive for: DVT/PE (h/o PE ~5 years ago, was treated with AC, only on ASA 81 mg) and hyperlipidemia Negative for: arrhythmia, atrial fibrillation, CAD, CHF, hypertension, recent TX and murmur/valvular heart disease. GI: +Lymphocytic colitis - on budesonide, follows with GI, Dr. Alvarez. Positive for: GERD Negative for: hepatitis, liver disease and ETOH >2 drinks/day. : +Urinary retention - on Flomax, has indwelling catheter, has appt with urology on 09/03/22. Positive for: indwelling catheter. Negative for: hematuria and renal failure. INFORMATION SYSTEMS SECURITY SPECIALIST: See HPI. Endocrine: No history of diabetes. Has not taken steroids within the past 30 days. No history of endocrinological symptoms or problems. Hematology: Positive for: chronic anti-coagulation/platelet meds (ASA 81 mg). Patient is on anti-coagulation/platelet medication(s): Aspirin. Negative for: anemia and factor V Leiden. Oncology: +H/o melanoma Psych: Positive for: anxiety. Musculoskeletal: Positive for: back pain. Skin: Negative for lesions, rash and itching. PAST MEDICAL HISTORY Diagnosis Date Allergic rhinitis Arthritis Back C. difficile enteritis History of back surgery 07/21/2011 Lymphocytic colitis Melanoma (HCC) right thigh Rotator cuff tear arthropathy of right shoulder 07/21/2012 Urinary retention PAST SURGICAL HISTORY Procedure Laterality Date ARTHRP KNE CONDYLE&PLATU MEDIAL&LAT COMPARTMENTS Right 10/2014 CARPAL TUNNEL 2009 bilateral COLONOSCOPY FLX DX W/COLLJ SPEC WHEN PFRMD 02-02-16 JOINT REPLACEMENT HX ORTHOPEDICS SURGERY HX PAST SURGICAL HISTORY OF 1999 bladder repair PAST SURGICAL HISTORY OF 2007 melanoma removal FAMILY HISTORY Problem Relation Age of Onset Heart Father late in life Breast Cancer Maternal Aunt Diabetes Other none Colon Cancer Other none Coronary Artery Disease Other none Social History Tobacco Use Smoking status: Never Smokeless tobacco: Never Vaping Use Vaping Use: Never used Substance Use Topics Alcohol use: No Drug use: No Prior to Admission medications as of 08/28/22 1547 Medication Sig Last Dose Taking aspirin 81 mg cap Take by mouth. Taking Yes tamsulosin (FLOMAX) 0.4 mg Take 1 capsule by mouth daily at bedtime. Taking Yes rosuvastatin (CRESTOR) 5 mg tablet Take 1 tablet by mouth once daily. Taking Yes budesonide, enteric coated (ENTOCORT EC) 3 mg 24 hr capsule Take 2 capsules by mouth daily before breakfast. Resume after Dexamethasone completed Taking Yes omeprazole (PRILOSEC) 40 mg capsule Take 40 mg by mouth once daily. Taking Yes meloxicam (MOBIC) 7.5 mg tablet Take 1 tablet by mouth once daily. Take this directly following a meal Taking Yes DULoxetine (CYMBALTA) 30 mg capsule Take 1 capsule by mouth daily at bedtime. Taking Yes multivitamin ORAL tablet Take 1 tablet by mouth once daily. Taking Yes Calcium-Vitamin D3-Vitamin K 500-100-40 mg-unit-mcg chew Take 1 tablet by mouth. CHEW TAB BEFORE SWALLOWING twice daily. Taking Yes No medication comments found. ALLERGIES Allergen Reactions Mesalamine Myalgia Flagyl [Nitroimidaz* Other: See Comments metal mouth Hydrocodone Bitartr* GI Upset Oxycodone GI Upset Scopolamine Other: See Comments Objective PHYSICAL EXAM: General: alert and oriented and healthy appearance. Pertinent negatives noted - not distressed. Skin: normal color, no rash or lesions. HEENT: EOM intact and pupils equal round. Pertinent negatives noted - no carotid bruit. Cardiovascular: regular rate and rhythm, normal S1 and S2, no rub, murmurs, or gallop. Pulse characterized as regular.No radial pulse abnormalities. Respiratory: normal breath sounds, no wheezes or crackles. Abdomen: Bowel sounds present, +indwelling damon catheter.. Extremities: Positive for edema. Neurological: normal cognition and motor skills. Positive for abnormal gait (ambulating with rollator walker). PAIN ASSESSMENT: VITALS: BP 122/72 Pulse 84 Temp (Src) 97.4 (Temporal) Resp 14 Ht 5' 5 (1.65m) Wt 175 lb (79.4kg) SpO2 96% BMI 29.12 kg/(m^2). Diagnostic tests reviewed for today's visit: Lab Value Units Date High Low HB 13.6 g/dL 07/04/2022 15.5 11.5 HCT 40.9 % 07/04/2022 46.0 36.0 WBC 10.38 k/uL 07/04/2022 11.00 3.70 PLT 214 k/uL 07/04/2022 400 150 NA 135 mmol/L 07/04/2022 144 136 K 4.4 mmol/L 07/04/2022 5.1 3.7 GLUC 95 mg/dL 07/04/2022 99 74 BUN 39 mg/dL 07/04/2022 21 7 CREAT 0.86 mg/dL 07/04/2022 0.96 0.58 PTSEC No results within date range. INR No results within date range. APTT No results within date range. ALT 20 U/L 06/27/2022 38 7 AST 20 U/L 06/27/2022 35 13 TBILI <0.2 mg/dL 06/27/2022 1.3 0.2 TSH No results within date range. Lab Value Units Date High Low HCGQT No results within date range. UHCG No results within date range. HCG, BODY* No results within date range. Lab Value Units Date High Low ABORHD No results within date range. ABSCREEN No results within date range. No results found for: HBA1C Recent Results (from the past 8760 hour(s)) ECG COMPLETE Collection Time: 06/22/22 4:42 PM Result Value Ventricular Rate 90 Atrial Rate 90 P-R Interval 156 QRS Duration 82 QT Interval 360 QTC Calculation (Bazett) [address] Cal[address] R [address] 7 Calculated T [address] 44 Impression NORMAL SINUS RHYTHM INFERIOR INFARCT , AGE UNDETERMINED CANNOT RULE OUT ANTERIOR INFARCT , AGE UNDETERMINED ABNORMAL ECG WHEN COMPARED WITH ECG OF 22-OCT-2021 17:59, INFERIOR INFARCT IS NOW PRESENT Confirmed by MD FATIMA VINAYAK ([id number]) on 06/24/2022 9:04:43 PM No results found for this or any previous visit (from the past 85065 hour(s)). Assessment NPH (normal pressure hydrocephalus) (HCC) Assessment: Tentative diagnosis per pt's , had stable ventriculomegaly on CT 06/2022, following with outside neuro, Dr. Ruggiero, planning to do spinal tap after hysteroscopy and if patient has improved balance, tentatively planning for DESIGNER/WRITER shunt. KAISER (obstructive sleep apnea) Assessment: Does not use CPAP/BIPAP. History of pulmonary embolism Assessment: ~5 years ago, was treated with AC (cannot recall medication), only on ASA 81 mg daily now. HLD (hyperlipidemia) Assessment: Stable, on RX. Lymphocytic colitis Assessment: Stable, on budesonide. Follows with outside GI, Dr. Alvarez. GERD (gastroesophageal reflux disease) Assessment: Stable, sx managed on omeprazole. Urinary retention Assessment: Stable, managed on Flomax, has indwelling catheter. Pt reports that she has appt with urology on 09/03/22 for management of catheter. Morales Activity Status Index: METS: Do moderate work around the house, such as vacuuming, sweeping floors, or carrying in groceries (3.50 METs) DASI Score: 3.5 (Ambulates with rollator walker, uses cane at home.) Patient denies any chest pain or undue shortness of breath with the above physical activity. Clinical Frailty Scale: 4. Apparently vulnerable STOP-Bang Score: STOP-Bang Score: (+KAISER - does not use CPAP/BIPAP) [id number] Score: [id number] Score: 0 ASA Class: 3 ANESTHESIA FINDINGS: Intubation History: No history of difficult intubation. No abnormal airway history Significant Anesthesia Considerations: none Airway History: No history of difficult airway No abnormal airway history I - PHYSICAL EVALUATION AIRWAY Patient intubated: No. Tracheostomy tube not present Mallampati: II. TM distance: >3 FB. Neck ROM: full ROM without neurological symptoms. Mouth opening: adequate. Short neck: no. Thick neck: no DENTAL Dental findings: teeth intact. Additional comments: +Crowns. II - ANESTHESIA PLAN ASA Score: 3 Anesthetic Plan: MAC Beta Clarke Monitoring Plan Post Procedure Analgesic Plan Prepared for Surgery: optimally prepared for surgery. CONSULTS: Patient does not require consults for optimization at this time Planned Anesthetic: MAC The Following Tests/Procedures Have Been Initiated: Orders Placed This Encounter aspirin 81 mg cap Sig: Take by mouth. Instructions Given to Patient: Instructions located in the after visit summary. Patient given verbal and written preop instructions and voices comprehension and compliance. SIGNATURE: Shawnee Santillan PA-C PATIENT NAME: Christian Suggs DATE: August 27, 2022 TIME: 4:49 PM PAGER/CONTACT #: documented in this encounterOhiohealth02-02-2023 NoteHNO ID: [id number] Author: Faby Santana MD Service: ? Author Type: Physician Type: Progress Notes Filed: 08/22/2022 1:09 PM Note Text: macie Suggs is a 76 year old female who presents for problem visit for urinary retention. HPI: Patient presents today with her and her daughter who is a nurse for follow-up of her endometrial biopsy and urinary retention. Patient's endometrial biopsy was benign. However she had a significant polyp noted on an office hysteroscopy. She is here today for her preop and her family was asking me about the plan for urinary retention. She has been seen by urology here in this office who diagnosed her with urinary retention and placed an indwelling Damon catheter. It was changed out by the nursing staff in that office. However there is no significant plan for follow-up. Patient and her family are under the understanding that her uterus is kinking off her bladder. Her daughter actually thought she was scheduled for hysterectomy because of this. Patient denies anything protruding from her vagina or feeling like any things falling out. Has had some intermittent urinary retention in the past OB History T0 L4 SAB0 IAB0 Ectopic0 Multiple0 Live Births0 Designer/Writer History LMP: Postmenopausal Age at Menarche: Age at First : Age at Menopause: 48 Designer/Writer History Comments: Sexual Activity: Not Currently; Male Contraception: No contraception data on record PAST MEDICAL HISTORY Diagnosis Date Allergic rhinitis Arthritis Back C. difficile enteritis History of back surgery 07/21/2011 Lymphocytic colitis Melanoma (HCC) right thigh Rotator cuff tear arthropathy of right shoulder 07/21/2012 Urinary retention PAST SURGICAL HISTORY Procedure Laterality Date ARTHRP KNE CONDYLEANDPLATU MEDIALANDLAT COMPARTMENTS Right 10/2014 CARPAL TUNNEL 2009 bilateral COLONOSCOPY FLX DX W/COLLJ SPEC WHEN PFRMD 02-02-16 JOINT REPLACEMENT HX ORTHOPEDICS SURGERY HX PAST SURGICAL HISTORY OF 1999 bladder repair PAST SURGICAL HISTORY OF 2007 melanoma removal FAMILY HISTORY Problem Relation Age of Onset Heart Father late in life Breast Cancer Maternal Aunt Diabetes Other none Colon Cancer Other none Coronary Artery Disease Other none Social History Tobacco Use Smoking status: Never Smokeless tobacco: Never Vaping Use Vaping Use: Never used Substance Use Topics Alcohol use: No Drug use: No Current Outpatient Medications Medication Sig tamsulosin (FLOMAX) 0.4 mg Take 1 capsule by mouth daily at bedtime. rosuvastatin (CRESTOR) 5 mg tablet Take 1 tablet by mouth once daily. budesonide, enteric coated (ENTOCORT EC) 3 mg 24 hr capsule Take 2 capsules by mouth daily before breakfast. Resume after Dexamethasone completed omeprazole (PRILOSEC) 40 mg capsule Take 40 mg by mouth once daily. meloxicam (MOBIC) 7.5 mg tablet Take 1 tablet by mouth once daily. Take this directly following a meal DULoxetine (CYMBALTA) 30 mg capsule Take 1 capsule by mouth daily at bedtime. multivitamin ORAL tablet Take 1 tablet by mouth once daily. Calcium-Vitamin D3-Vitamin K 500-100-40 mg-unit-mcg chew Take 1 tablet by mouth. CHEW TAB BEFORE SWALLOWING twice daily. No current facility-administered medications for this visit. Allergies As of Date: 08/21/2022 Allergen Noted Reaction MESALAMINE 09/24/2021 Myalgia FLAGYL [NITROIMIDAZOLES] 01/15/2016 Other: See Comments HYDROCODONE BITARTRATE 09/17/2018 GI Upset OXYCODONE 09/17/2018 GI Upset SCOPOLAMINE 09/17/2018 Other: See Comments Fully Assessed 08/05/2022 REVIEW OF SYSTEMS Abdomen: No changes in bowel movements, no blood in her stool Allergies and current medication updated:Yes EXAM: BP 122/68 Pulse 86 Ht 5' 5.25 (1.66m) Wt 172 lb (78.0kg) SpO2 99% BMI 28.42 kg/(m2). GENERAL: pleasant, female in no apparent distress ASSESSMENT AND PLAN: Encounter Diagnosis ICD-10-CM 1. Urinary retention R33.9 CONSULT TO URO GYNECOLOGY 2. Endometrial polyp N84.0 I discussed with the patient and her family that this endometrial polyp is not causing urinary retention. In addition, her prolapse and/or size of her uterus do not seem to be significant enough to be causing complete urinary retention. I ordered a consult to uro-[facility] and recommended they make this as soon as possible to make a plan for catheter removal. In the interim, if issues arise she should contact the office that placed the catheter to discuss removal. They are comfortable with this plan. At this point there is not an indication for hysterectomy. Medical Decision Making: Medical Decision Making Level: 1 - N/A Faby Santana, [facility]01-20-2023 Miscellaneous Notes* Telephone Encounter - Sara Roberts LPN - 08/09/2022 1:13 PM EST Patient is scheduled for surgery at [facility] on 09/05/2022. Please approve surgical order documented in this encounterOhiohealth01-16-2023 NoteHNO ID: [id number] Author: Faby Santana MD Service: ? Author Type: Physician Type: Progress Notes Filed: 08/05/2022 11:36 AM Note Text: Christian Limapatrick presents for hysteroscopy. Indication: endometrial mass found on imaging. Denies vaginal bleeding. Wears a catheter chronically. here w/ and daughter who is RN at [employer]. Age: [age] year old LMP: No LMP recorded. Patient is postmenopausal. Contraception: n/a test: n/a VS: BP 130/72 Wt 0 lb (0.0kg) UNIVERSAL PROTOCOL / SAFETY CHECKLIST Procedure to be Performed: Endosee with possible biopsy Sign In: A Moment of CARE was completed. Personnel directly involved with the procedure wore the appropriate PPE (Personal Protective Equipment). Patient/Surrogate Stated/Verified: PATIENT VERIFIED(optional for EMERGENT procedures): Patient name, Date of , Relevant allergies, and The intended procedure Time Out Communication: Intended patient and procedure match the source documents. Consent documented and matches the intended procedure. Relevant labs, photos, and/or imaging studies have been reviewed. No medications required for procedure. No implant(s) inserted. Sign Out: SIGN OUT (optional for EMERGENT procedures): All specimen containers correctly labeled. All instruments, equipment, possible retained foreign bodies accounted for. Post-procedure follow-up management communicated and Plan of Care Visit completed when applicable. Lelo Acosta LPN OBJECTIVE: Cervix cleaned with betadine. A single tooth tenaculum was used to grasp cervix. Cervix was dilated. Under sterile conditions, using 15 mL normal saline as distention, ENDOSEE hysteroscopy performed without incident. Endometrial polyp -large, englulfing most of the cavity, possibly another small one behind it. Tubal ostia visualized and normal. Endometrial biopsy performed. PROCEDURE SUMMARY: Patient tolerated procedure well. ASSESMENT: Endometrial polyp with polyp lesions on hysteroscopy. PLAN: Hysteroscopic polypectomy, DANDC in the OR. .Faby Santana, [facility]01-03-2023 Miscellaneous Notes* Telephone Encounter - Lelo Vidal LPN - 07/23/2022 10:35 AM EST Called patient. Verified name and date of . Informed of results- verbalizes understanding. Informed I did call her daughter, Marialuisa, last week for update after her visit but mailbox was full. Patient states she will let her know and if she needs to speak with us Marialuisa to call. Lelo Vidal LPN * Telephone Encounter - Lelo Vidal LPN - 07/23/2022 10:32 AM EST ----- Message from Priyanka Reynolds PA-C sent at 07/23/2022 8:42 AM EST ----- No infection in the urine TRENTON Mercado, KAEL MOLINA documented in this encounterOhiohealth12-30-2022 Miscellaneous Notes* Telephone Encounter - Lelo Vidal LPN - 07/19/2022 4:57 PM EST Called Marialuisa- unable to leave message due to mailbox full. Lelo Vidal LPN documented in this encounterOhiohealth12-30-2022 NoteHNO ID: [id number] Author: Lelo Vidal LPN Service: ? Author Type: ? Type: Progress Notes Filed: 07/19/2022 4:27 PM Note Text: HPI: Christian Suggs is a 76 year old female. The patient is here now for a TOV/damon catheter removal. Explained procedure. Patients daughter present and patient gave verbal permission to call with results of TOV as she needs to go home to sleep due to working third shift and okay to leave voicemail. Procedure: Perform a TOV/PVR. Obtained urine specimen for culture. Bladder filled through damon with 200 mL of 0.9% Sodium chloride, removed fluid from balloon and the damon was removed with catheter intact and patient voided 60 mL. Pt was not able to empty her bladder on own without straining. The indwelling damon was removed without difficulty. Explained procedure to patient and verbalizes understanding. Performed a PVR. Results of scan: 132 mL. Priyanka notified. Order to reinsert damon catheter and Priyanka spoke with patient prior with plan. Two nurses to assist. Inserted 16 Fr catheter using aseptic technique. Irrigated with 60 mL 0.9% sodium chloride without difficulties. 250 mLs light yellow urine with sediment throughout return noted. Bulb inflated with 10 mLs prefilled syringe- sterile water. Catheter secured to right inner thigh. The patient tolerated the procedures well. Reviewed catheter care and verbalizes understanding. Patient provided with Home Going Instructions: Management of Your Indwelling Damon Catheter and Care of the Urine Drainage Bag. Patient decline leg bag. Assessment/Plan: Successful catheter change. Return for catheter changes as planned. Lelo Vidal [facility]ou[facility]22 NoteHNO ID: [id number] Author: Priyanka Reynolds PA-C Service: ? Author Type: Physician Roofing Machine Tender Type: Progress Notes Filed: 07/19/2022 4:27 PM Note Text: [facility] NEW PATIENT CLINIC NOTE SERVICE DATE: 07/19/2022 SERVICE TIME: 1:50 PM NAME: Christian Suggs CHIEF COMPLAINT: ER follow up HISTORY OF PRESENT ILLNESS: Christian Suggs is a 76 year old female with PMH including Urine retention and Urine Incontinence presenting with follow up from ER visit The patient reports she has damon in place due to failed TOV at hospital We discussed doing a TOV and if not able to pass to place ne catheter and give her Flomax and have her see Dr. Santana as planned and see if there is a uterine mass that may be causing mass effect on on bladder or urethra, and if not have he back to repeat voiding trial on Flomax.urine for culture sent as well. LUTS: DYSURIA: no URGENCY: Yes FREQUENCY:5 per day NOCTURIA: 1 per night STRAINING TO VOID: No EMPTIES COMPLETELY: Yes UTI: No GROSS HEMATURIA: no MICROSCOPIC HEMATURIA: no UA DIPSTICK POSITIVE ONLY: no Other symptoms: LABS: No results found for: TESTOST No results found for: TESTFREE No results found for: PSA Hematocrit (%) Date Value 07/04/2022 40.9 06/23/2022 35.9 06/22/2022 43.8 09/16/2012 34.0 09/15/2012 36.2 09/15/2012 35.4 MEDICATIONS: rosuvastatin (CRESTOR) 5 mg tablet Take 1 tablet by mouth once daily. budesonide, enteric coated (ENTOCORT EC) 3 mg 24 hr capsule Take 2 capsules by mouth daily before breakfast. Resume after Dexamethasone completed omeprazole (PRILOSEC) 40 mg capsule Take 40 mg by mouth once daily. DULoxetine (CYMBALTA) 30 mg capsule Take 1 capsule by mouth daily at bedtime. aspirin, enteric coated (ASPIRIN, ENTERIC COATED) 81 mg EC tablet Take 81 mg by mouth once daily. multivitamin ORAL tablet Take 1 tablet by mouth once daily. Calcium-Vitamin D3-Vitamin K 500-100-40 mg-unit-mcg chew Take 1 tablet by mouth. CHEW TAB BEFORE SWALLOWING twice daily. miSOPROStol (CYTOTEC) 200 mcg tablet Use 1 tablet vaginally one time only for [address] 2 tablets vaginally the morning of the procedure meloxicam (MOBIC) 7.5 mg tablet Take 1 tablet by mouth once daily. Take this directly following a meal (Patient not taking: Reported on 07/19/2022) PAST MEDICAL HISTORY: PAST MEDICAL HISTORY Diagnosis Date Allergic rhinitis Arthritis Back C. difficile enteritis History of back surgery 07/21/2011 Lymphocytic colitis Melanoma (HCC) right thigh Rotator cuff tear arthropathy of right shoulder 07/21/2012 Urinary retention PAST SURGICAL HISTORY: PAST SURGICAL HISTORY Procedure Laterality Date ARTHRP KNE CONDYLEANDPLATU MEDIALANDLAT COMPARTMENTS Right 10/2014 CARPAL TUNNEL 2009 bilateral COLONOSCOPY FLX DX W/COLLJ SPEC WHEN PFRMD 02-02-16 JOINT REPLACEMENT HX ORTHOPEDICS SURGERY HX PAST SURGICAL HISTORY OF 1999 bladder repair PAST SURGICAL HISTORY OF 2007 melanoma removal FAMILY HISTORY: FAMILY HISTORY Problem Relation Age of Onset Heart Father late in life Breast Cancer Maternal Aunt Diabetes Other none Colon Cancer Other none Coronary Artery Disease Other none SOCIAL HISTORY: Social Connections: Not on file REVIEW OF SYSTEMS: GENERAL: No fever, chills, weight loss, or fatigue. ENMT: Negative CARDIOVASCULAR:NO CHEST PAIN, PALPITATIONS, ANKLE EDEMA RESPIRATORY: No chronic cough, wheezing, dyspnea, hemoptysis. GENITOURINARY: SEE HPI MUSCULOSKELETAL:NO CHRONIC BACK PAIN, ARTHRITIS, CHRONIC NECK PAIN SKIN: NO VARICOSE VEINS, RASH, ABNORMAL ITCHING HEME/LYMPH/IMMUNE:Negative for prolonged bleeding, bruising easily or swollen nodes NEUROLOGICAL: NO HEADACHES, NUMBNESS, SEIZURES, STROKE DIABETES: no All other systems reviewed and are negative PHYSICAL EXAMINATION: Blood pressure 110/76, pulse 80, temperature 36.8 ?C (98.2 ?F), temperature source Temporal, resp. rate 14, height 165.9 cm (5' 5.3), weight 75.8 kg (167 lb), SpO2 94 %. GENERAL: WNL nutrition, no deformities, healthy appearing NEURO: Awake, alert and oriented x 3 and Normal gait PSYCH: No signs of depression, anxiety, or agitation ENMT (Ear, Nose, Mouth, Throat): No masses, adenopathy, icterus. Thyroid nonpalpable RESP: NL effort, no retractions or purse-lip breathing. CV: No extremity swelling, varices, edema, pallor, erythema GASTROINTESTINAL: Soft, nontender, nondistended, no masses. HERNIAS: None SKIN: No rash, lesions No palpable lymphadenopathy MUSCULOSKELETAL: Extremities normal. No deformities, edema, clubbing or skin discoloration. PROBLEM LIST REVIEW: Yes LABS: Results for orders placed or performed in visit on 07/11/22 PT ED OBSTETRICS AND GYNECOLOGY Result Value Ref Range Wool Shearer Provider ESTHER your patient CHRISTIAN SUGGS has been assigned their Yvonne pro (more content not included)...[facility]12-30-2022 Miscellaneous Notes* Telephone Encounter - Hue Miller RN - 07/19/2022 10:38 AM EST Patient notified and voiced understanding. Pelvic ultrasound scheduled. Reviewed cytotec instructions with patient. Hue Miller RN * Telephone Encounter - Faby Santana MD - 07/19/2022 10:13 AM EST I would like her to have US before. Also, that day we will probably do EMB and in office endosee. Orders entered. Please let her know. Use cytotec in am . Thanks. Faby Santana MD * Telephone Encounter - Edita Montana Ma - 07/18/2022 10:16 AM EST Patient has appointment with you on 08/05/2021. CT scan done at ED on 06/22/2022. Recommends ultrasound. Would you like her to have one done prior to her appointment. Openings the morning of appointment. Order pending. Patient will need called to schedule if appropriate. Edita Montana CMA documented in this encounterOhiohealth12-08-2022 NoteHNO ID: [id number] Author: Ban Hull RN Service: Care Management Author Type: Registered Nurse Type: Care Mgt Progress Note Filed: 06/27/2022 1:14 PM Note Text: CARE MANAGEMENT DISCHARGE NOTE SERVICE DATE: 06/27/2022 SERVICE TIME: 1:10 PM LOS: 3 days Admission Date: 06/23/2022 DISCHARGE ARRANGEMENT (list agency and phone number) Discharge Arrangement: Group Home Facility Was an expedited discharge program used?: No CAREGIVER ASSESSMENT: Caregiver is ready, willing and able to meet the patient's needs as recommended by the inter-professional team:: Yes Patient's transition needs and plan for meeting these needs: Group Home Facility at [facility] HANDOFF COMMUNICATION: Handoff to: Primary Care Physician;Other Caregiver Primary Care Physician Name/Phone: Lilo Grullon Other Caregiver Name/Phone: RN to RN report at [facility] TRANSPORTATION ARRANGEMENTS: Transportation Arrangements: Ambulance Transportation Agency and Phone #:: [facility] [phone] Date of Trip: 06/27/22 Time of Trip: 1433 Type of Service: BLS Non-emergency Is Patient Medicaid Pending?: No Was transportation financial coverage discussed with family?: Patient;Family Clutch Inspector Location: [place] Destination: [facility] Financial Care Management Responsibility: None Discharge Information Row Name Admission (Current) from 06/23/2022 in [facility] Transportation Agency [facility] Transport Arranged To: [place] [facility] Group Home Facility Agency [facility] Transitional care unit Needs Prior to Discharge: Ready for Discharge;Discharge Transportation Caregiver is ready, willing and able to meet the patient's needs as recommended by the inter-professional team:: Yes Name of Caregiver: [facility] Transportation Arrangements: Ambulance Transportation Agency and Phone #:: [facility] [phone] Date of Trip: 06/27/22 Time of Trip: 1430 Type of Service: BLS Non-emergency Is Patient Medicaid Pending?: No Was transportation financial coverage discussed with family?: Patient;Family Clutch Inspector Location: [place] Destination: [facility] Financial Care Management Responsibility: None Discharge order in place. Patient has been approved by Zenaida to transition to [facility] SNF. Notified patient at bedside she is agreeable to plan for discharge today to SNF, call to Marialuisa, updated on plan for discharge today. Updates sent to facility. Discharge packet on chart for Clinical RN. SIGNATURE: Ban Hull RN PATIENT NAME: Christian Suggs DATE: June 27, 2022 TIME: 1:09 PM PAGER/CONTACT #: [phone] NoteHNO ID: [id number] Author: Leonela Stein MD Service: ? Author Type: Physician Type: Progress Notes Filed: 06/29/2022 8:18 PM Note Text: [facility] - General Progress Note CHRISTIAN SUGGS : 1945 AGE: 76 SEX: F CSN: [id number] HOSP SVC: [facility] LOCATION: [facility] ATTENDING PHYSICIAN: Leonela Stein M.D. DATE OF SERVICE: 06/26/2022 SUBJECTIVE: This is a patient, who was admitted with generalized weakness and COVID-19, was found to have hypoxia, placed on IV remdesivir. The patient had urinary retention. Damon catheter has been placed. No chest pain, tightness, or pressure. No abdominal pain. ASSESSMENT AND PLAN: 1. Generalized weakness. Supportive care. PT, OT. Treat underlying causes, infection COVID-19. 2. COVID-19 with hypoxia acute respiratory failure. O2 support to keep pulse ox above 92%. Monitor pulse ox. Started on remdesivir. 3. Urine retention. Urology consult. Damon catheter. 4. Thrombocytopenia. Follow up on the CBC. 5. Metabolic acidosis. Encourage hydration. Follow up on the CO2 level. Case has been discussed with consultants, patient. We will follow up. PAST MEDICAL HISTORY Diagnosis Date Allergic rhinitis Arthritis Back C. difficile enteritis History of back surgery 2011 Melanoma (HCC) right thigh Rotator cuff tear arthropathy of right shoulder 2012 Social History Tobacco Use Smoking status: Never Smokeless tobacco: Never Vaping Use Vaping Use: Never used Substance Use Topics Alcohol use: No Drug use: No FAMILY HISTORY Problem Relation Age of Onset Heart Father late in life Breast Cancer Maternal Aunt Diabetes Other none Colon Cancer Other none Coronary Artery Disease Other none PAST SURGICAL HISTORY Procedure Laterality Date ARTHRP KNE CONDYLEANDPLATU MEDIALANDLAT COMPARTMENTS Right 10/2014 CARPAL TUNNEL 2009 bilateral COLONOSCOPY FLX DX W/COLLJ SPEC WHEN PFRMD 02-02-16 JOINT REPLACEMENT HX ORTHOPEDICS SURGERY HX PAST SURGICAL HISTORY OF 1999 bladder repair PAST SURGICAL HISTORY OF 2008 melanoma removal No results found for: HBA1C R.O.S negative other than HPI AND PMH all other SYS reviewed and negative. Current Facility-Administered Medications Medication Dose Route Frequency Provider Last Rate Last Admin NaCl 0.9% iv flush bag 20 mL INTRAVENOUS PRN Dipika Frederick APRN.CNP sodium chloride 0.9 % (flush) 3-5 mL (BD POSIFLUSH) 3-5 mL INTRAVENOUS q 12 H Dipika Frederick APRN.BRIM SHAPER 5 mL at 06/26/222047 acetaminophen 650 mg tab(s) (TYLENOL) 650 mg ORAL q 6 H PRN Dipika Frederick APRN.BRIM SHAPER 650 mg at 06/26/222049 shtcjgl-bxoaemrfl-pmpunjy D3 500 mg-5 mcg (200 unit) 1 tablet 1 tablet ORAL BID Dipika Frederick APRN.BRIM SHAPER 1 tablet at 06/26/222046 budesonide, enteric coated 6 mg cap(s) (ENTOCORT EC) 6 mg ORAL BEFORE BREAKFAST DAILY Dipika Frederick APRN.BRIM SHAPER 6 mg at 06/26/22 0656 therapeutic multivitamin-minerals tablet (THERA-M PLUS) 1 tablet ORAL DAILY Dipika Frederick APRN.BRIM SHAPER 1 tablet at 06/26/22 09 meloxicam 7.5 mg tab(s) (MOBIC) 7.5 mg ORAL DAILY Dipika Frederick APRN.BRIM SHAPER 7.5 mg at 06/26/22908 aspirin, enteric coated 81 mg tab(s) 81 mg ORAL DAILY Dipika Frederick APRN.BRIM SHAPER 81 mg at 06/26/22908 DULoxetine 30 mg cap(s) (CYMBALTA) 30 mg ORAL AT BEDTIME Dipika Frederick APRN.BRIM SHAPER 30 mg at 06/26/222046 rosuvastatin 5 mg tab(s) (CRESTOR) 5 mg ORAL AT BEDTIME Dipika Frederick APRN.BRIM SHAPER 5 mg at 06/26/222046 cefTRIAXone iv piggyback 1 g in dextrose (iso-osmotic) 50 mL (ROCEPHIN) 1 g INTRAVENOUS q 24 H Dipika Frederick APRN.BRIM SHAPER Stopped at 06/26/[address] 40 mg tab(s) (PROTONIX) 40 mg ORAL DAILY (6 AM) Dipika Frederick APRN.BRIM SHAPER 40 mg at 06/26/22 0656 remdesivir in NaCl 0.9% Vial-Mate/ADD-[place] 100 mg 275 mL 100 mg INTRAVENOUS q 24 HR Vivien Dietz MD Stopped at 06/26/22 1813 dexAMETHasone 6 mg tab(s) (DECADRON) 6 mg ORAL DAILY WITH BREAKFAST Vivien Dietz MD 6 mg at 06/26/22 0910 melatonin 3 mg tab(s) 3 mg ORAL AT BEDTIME PRN Cb Singh APRN.BRIM SHAPER 3 mg at 06/25/22 2110 Intake/Output Summary (Last 24 hours) at 06/26/2022 2333 Last data filed at 06/26/2022 2040 Gross per 24 hour Intake -- Output 1975 ml Net -1975 ml DATA: CBC: No results for input(s): WBC, RBC, HB, HCT, PLT, MCV, MCH, MPV, RDW in the last 24 hours. CMP: Recent Labs 06/26/22 0709 NA 141 K 3.8 CHLOR 106* CO2 24 BUN 25* CREAT 0.72 GLUC 93 CA 9.3 ANION 11 Glucose (mg/dL) Date Value 06/26/2022 93 BUN (mg/dL) Date Value 06/26/2022 25 (H) Creatinine (mg/dL) Date Value 06/26/2022 0.72 Sodium (mmol/L) Date Value 06/26/2022 141 Potassium (mmol/L) Date Value 06/26/2022 3.8 Chloride (mmol/L) Date Value 06/26/2022 106 (H) CO2 (mmol/L) Date Value 06/26/2022 24 Protein, Total (g/dL) Date Value 06/25/2022 6.2 (L) Albumin (g/dL) Date Value 06/25/2022 3.3 (L) Calcium, Total (mg/dL) Date Value 06/26/2022 9.3 (more content not included)...[facility] [id number] NoteHNO ID: [id number] Author: Ban Hull RN Service: Care Management Author Type: Registered Nurse Type: Care Mgt Progress Note Filed: 06/26/2022 4:05 PM Note Text: CARE MANAGEMENT PROGRESS NOTE SERVICE DATE: 06/26/2022 SERVICE TIME: 12:16 PM LOS: 2 days Needs Prior to Discharge: To Be Determined;Precertification;Discharge Transportation;IV Antibiotics Received message from office, daughter was requesting call from . Call to Marialuisa, updated on current status of precert pending for [facility]. Updated if SNF is denied, home care services are also on stand by with [facility] Home care services. 1530: Received message from [facility] precert is approved, Still waiting for official confirmation. MMT transport scheduled for 1430 to [facility] pending medical clearance and confirmation of precert. SIGNATURE: Ban Hull RN PATIENT NAME: Christian Suggs DATE: June 26, 2022 TIME: 12:16 PM PAGER/CONTACT #: [phone] NoteHNO ID: [id number] Author: Leonela Stein MD Service: ? Author Type: Physician Type: Progress Notes Filed: 06/26/2022 10:55 PM Note Text: [facility] - General Progress Note CHRISTIAN SUGGS : 1945 AGE: 76 SEX: F CSN: [id number] HOSP [facility]: [facility] LOCATION: [facility] ATTENDING PHYSICIAN: Leonela Stein M.D. DATE OF SERVICE: 06/26/2022 TIME OF SERVICE: 03:00 PM SUBJECTIVE: This is a patient, who was admitted with generalized weakness and COVID-19, was found to have hypoxia, placed on IV remdesivir. The patient had urinary retention. Damon catheter has been placed. No chest pain, tightness, or pressure. No abdominal pain. ASSESSMENT AND PLAN: 1. Generalized weakness. Supportive care. PT, OT. Treat underlying causes, infection COVID-19. 2. COVID-19 with hypoxia acute respiratory failure. O2 support to keep pulse ox above 92%. Monitor pulse ox. Started on remdesivir. 3. Urine retention. Urology consult. Damon catheter. 4. Thrombocytopenia. Follow up on the CBC. 5. Metabolic acidosis. Encourage hydration. Follow up on the CO2 level. Case has been discussed with consultants, patient. We will follow up. Leonela Stein M.D. Internal Medicine RICHTER:[id number] NoteHNO ID: [id number] Author: Jessie Jones Service: Care Management Author Type: ? Type: Care Mgt Progress Note Filed: 06/26/2022 9:59 AM Note Text: CARE MANAGEMENT PROGRESS NOTE SERVICE DATE: 06/26/2022 SERVICE TIME: 958 LOS: 2 days IMM Follow Up Copy Given: Yes Copy given to:: Patient Extruder Operator Horizontal Extruder Operator Horizontal Name/Relationship: ritesh mario Method: By Phone SIGNATURE: Jessie JACQUES PATIENT NAME: Christian Suggs DATE: June 26, 2022 TIME: 9:59 AM PAGER/CONTACT #: [phone] NoteHNO ID: [id number] Author: Leonela Stein MD Service: ? Author Type: Physician Type: Progress Notes Filed: 06/26/2022 11:34 PM Note Text: [facility] - General Progress Note CHRISTIAN SUGGS : 1945 AGE: 76 SEX: F CSN: [id number] HOSP S[facility]: [facility] LOCATION: [facility] ATTENDING PHYSICIAN: Leonela Stein M.D. DATE OF SERVICE: 06/25/2022 SUBJECTIVE: Patient continued to report dyspnea with cough, slightly productive weak, generalized. No focal weakness. Admitted with COVID-19. Continued to be hypoxic, required O2 support. Denies chest pain, tightness, or pressure. Was found to have urinary retention and endometrial mass. ASSESSMENT AND PLAN: 1. COVID-19 infection. Continue with remdesivir. Monitor pulse ox, markers. 2. Acute respiratory failure with hypoxia. O2 support to keep pulse ox above 92%. 3. Urinary retention. Damon catheter. Consult with Urology. 4. Endometrial mass. Consult with DIVISION FIELD INSPECTOR. Finding reviewed and discussed with the patient. 5. Debility, weakness. PT, OT. Case has been discussed with the consultants, patient. We will follow up. PAST MEDICAL HISTORY Diagnosis Date Allergic rhinitis Arthritis Back C. difficile enteritis History of back surgery 2011 Melanoma (HCC) right thigh Rotator cuff tear arthropathy of right shoulder 2012 Social History Tobacco Use Smoking status: Never Smokeless tobacco: Never Vaping Use Vaping Use: Never used Substance Use Topics Alcohol use: No Drug use: No FAMILY HISTORY Problem Relation Age of Onset Heart Father late in life Breast Cancer Maternal Aunt Diabetes Other none Colon Cancer Other none Coronary Artery Disease Other none PAST SURGICAL HISTORY Procedure Laterality Date ARTHRP KNE CONDYLEANDPLATU MEDIALANDLAT COMPARTMENTS Right 10/2014 CARPAL TUNNEL 2009 bilateral COLONOSCOPY FLX DX W/COLLJ SPEC WHEN PFRMD 02-02-16 JOINT REPLACEMENT HX ORTHOPEDICS SURGERY HX PAST SURGICAL HISTORY OF 1999 bladder repair PAST SURGICAL HISTORY OF 2007 melanoma removal No results found for: HBA1C R.O.S negative other than HPI AND PMH all other SYS reviewed and negative. Current Facility-Administered Medications Medication Dose Route Frequency Provider Last Rate Last Admin NaCl 0.9% iv flush bag 20 mL INTRAVENOUS PRN Dipika Lamiell, PLUMBER GASFITTER.BRIM SHAPER sodium chloride 0.9 % (flush) 3-5 mL (BD POSIFLUSH) 3-5 mL INTRAVENOUS q 12 H Dipika Kailashiell, PLUMBER GASFITTER.BRIM SHAPER 5 mL at 06/25/222109 acetaminophen 650 mg tab(s) (TYLENOL) 650 mg ORAL q 6 H PRN Dipika Melyl, PLUMBER GASFITTER.BRIM SHAPER 650 mg at 06/25/222109 llbmkbi-oybxzzuww-dwcqlxr D3 500 mg-5 mcg (200 unit) 1 tablet 1 tablet ORAL BID Dipika Lamiell, PLUMBER GASFITTER.BRIM SHAPER 1 tablet at 06/25/222109 budesonide, enteric coated 6 mg cap(s) (ENTOCORT EC) 6 mg ORAL BEFORE BREAKFAST DAILY Dipika Lamiell, PLUMBER GASFITTER.BRIM SHAPER 6 mg at 06/25/22 06 therapeutic multivitamin-minerals tablet (THERA-M PLUS) 1 tablet ORAL DAILY Dipika Lamiell, PLUMBER GASFITTER.BRIM SHAPER 1 tablet at 06/25/22 09 meloxicam 7.5 mg tab(s) (MOBIC) 7.5 mg ORAL DAILY Dipika Lamiell, PLUMBER GASFITTER.BRIM SHAPER 7.5 mg at 06/25/22 09 aspirin, enteric coated 81 mg tab(s) 81 mg ORAL DAILY Dipika Frederick APRN.BRIM SHAPER 81 mg at 06/25/22907 DULoxetine 30 mg cap(s) (CYMBALTA) 30 mg ORAL AT BEDTIME Dipika Frederick APRN.BRIM SHAPER 30 mg at 06/25/222109 rosuvastatin 5 mg tab(s) (CRESTOR) 5 mg ORAL AT BEDTIME Dipika Frederick APRN.BRIM SHAPER 5 mg at 06/25/222109 cefTRIAXone iv piggyback 1 g in dextrose (iso-osmotic) 50 mL (ROCEPHIN) 1 g INTRAVENOUS q 24 H Dipika Frederick APRN.CNP Stopped at 06/25/[address] 40 mg tab(s) (PROTONIX) 40 mg ORAL DAILY (6 AM) Dipika Frederick APRN.BRIM SHAPER 40 mg at 06/25/22621 remdesivir in NaCl 0.9% Vial-Mate/ADD-[place] 100 mg 275 mL 100 mg INTRAVENOUS q 24 HR Vivien Dietz MD Stopped at 06/25/221810 dexAMETHasone 6 mg tab(s) (DECADRON) 6 mg ORAL DAILY WITH BREAKFAST Vivien Dietz MD 6 mg at 06/25/22 0913 melatonin 3 mg tab(s) 3 mg ORAL AT BEDTIME PRN Cb Singh APRN.BRIM SHAPER 3 mg at 06/25/222109 Intake/Output Summary (Last 24 hours) at 06/25/2022 2311 Last data filed at 06/25/20222109 Gross per 24 hour Intake 250 ml Output 1050 ml Net -800 ml DATA: CBC: No results for input(s): WBC, RBC, HB, HCT, PLT, MCV, MCH, MPV, RDW in the last 24 hours. CMP: Recent Labs 06/25/22 0757 NA 141 K 3.8 CHLOR 107* CO2 24 BUN 20 CREAT 0.69 GLUC 95 TPROT 6.2* CA 9.1 TBILI 0.2 ALKPHOS 70 ALT 22 AST 23 ANION 10 Glucose (mg/dL) Date Value 06/25/2022 95 BUN (mg/dL) Date Value 06/25/2022 20 Creatinine (mg/dL) Date Value 06/25/2022 0.69 Sodium (mmol/L) Date Value 06/25/2022 141 Potassium (mmol/L) Date Value 06/25/2022 3.8 Chloride (mmol/L) Date Value 06/25/2022 107 (H) CO2 (mmol/L) Date Value 06/25/2022 24 Protein, Total (g/dL) Date Value 06/25/2022 6.2 (L) Albumin (g/dL) Date Value 06/25/2022 3.3 (L) Calcium, Total (mg/dL) (more content not included)...[facility] [id number] NoteHNO ID: [id number] Author: Leonela Stein MD Service: ? Author Type: Physician Type: Progress Notes Filed: 06/26/2022 10:58 PM Note Text: [facility] - General Progress Note CHRISTIAN SUGGS : 1945 AGE: 76 SEX: F CSN: [id number] HOSP C: [facility] LOCATION: [id number] ATTENDING PHYSICIAN: Leonela Stein M.D. DATE OF SERVICE: 06/25/2022 TIME OF SERVICE: 03:00 PM SUBJECTIVE: Patient continued to report dyspnea with cough, slightly productive weak, generalized. No focal weakness. Admitted with COVID-19. Continued to be hypoxic, required O2 support. Denies chest pain, tightness, or pressure. Was found to have urinary retention and endometrial mass. ASSESSMENT AND PLAN: 1. COVID-19 infection. Continue with remdesivir. Monitor pulse ox, markers. 2. Acute respiratory failure with hypoxia. O2 support to keep pulse ox above 92%. 3. Urinary retention. Damon catheter. Consult with Urology. 4. Endometrial mass. Consult with DIVISION FIELD INSPECTOR. Finding reviewed and discussed with the patient. 5. Debility, weakness. PT, OT. Case has been discussed with the consultants, patient. We will follow up. Leonela Stein M.D. Internal Medicine RICHTER:[id number] NoteHNO ID: [id number] Author: Ban Hull RN Service: Care Management Author Type: Registered Nurse Type: Care Mgt Progress Note Filed: 06/25/2022 11:38 AM Note Text: CARE MANAGEMENT PROGRESS NOTE SERVICE DATE: 06/25/2022 SERVICE TIME: 11:35 AM LOS: 1 day Needs Prior to Discharge: To Be Determined;Accepting Facility;Precertification;Discharge Transportation Call to patient's daughter, Nati to discuss transition planning. PT/OT recommendations are Home therapy. Discussed at this time, [facility] has not accepted or denied. She would prefer we try to get her accepted at [place] for short term rehab as she failed at home with multiple falls and she has 12 stairs to get to her bedroom at home. Inquired if additional choices could be sent to her incase [facility] denies, she will investigate other options on her own. Inquiry sent to [facility], awaiting response, she will need precert which may be barrier to getting her to SNF. SIGNATURE: Ban Hull RN PATIENT NAME: Christian Suggs DATE: June 25, 2022 TIME: 11:34 AM PAGER/CONTACT #: [phone] NoteHNO ID: [id number] Author: Massiel Stallings APRN.CNP Service: General Internal Medicine Author Type: Nurse Practitioner Type: Plan of Care Filed: 06/24/2022 4:17 PM Note Text: This is a 76 year old female with PMH of OA, right thigh melanoma, spinal stenosis, GERD, who presented to the hospital from [facility] ED for evaluation and treatment of persistent generalize weakness and a fall. CT brain 06/22/22 showed no acute intracranial injury. CT cervical spine showed no evidence of cervical spine fracture, however showed right thyroid mass decrease. CT A/P 06/22/22 with 2.0 x 1.3 x 1.9 cm hypodense mass in the region of the endometrial canal and diffuse bladder wall thickening and hyperemia. Pt tested positive for COVID-19 on 06/21/2022. CXR on admission unremarkable. CBC on admission with no leukocytosis or severe anemia. UA on admission indicative of infection. Urine cultures positive for E. Coli. Pt was noted to have urinary retention and damon catheter was placed on admission to [facility]. Pt was noted to have hypoxia on admission requiring 2 L of O2. Interval HPI: Pt reports overall improvement. Reports persistent weakness. She has not been out of bed since the transfer. Pt denies fever, chills, diaphoresis. Denies chest pain, SOB, palpitations. Denies abdominal pain, N/V/D/C. Denies bloody or black stools. Pt reports some bladder spasms that started since FC placement. Reports hematuria prior to admission. Physical exam: LS clear, HR regular, abdomen with no tenderness on palpation. No BLE edema. FC with clear yellow urine with scant blood clots. Plan: Principal Problem: Fall at home, initial encounter Assessment AND Plan: -Likely due to generalized weakness in setting of COVID -CT brain and cervical spine negative for acute changes -PT/OT order placed -CM following for possible placement Active Problems: Acute respiratory failure with hypoxemia (HCC) COVID-19 Assessment AND Plan: -COVID-19 positive 06/20/2022 -CXR on admission unremarkable -CRP 7.5. Hypoxic on admission requiring 2 L of O2 -ID consulted. Continue with Remdesivir 3-5 days per ID discretion -Continue with Dexamethasone -Continue with supportive care UTI (urinary tract infection) Urinary retention Assessment AND Plan: -UC positive for E. Coli. Continue Rocephin -Urinary retention on admission. FC placed -Urology consult per discussion with attending Endometrial mass Assessment AND Plan: -CT A/P on admission with 2.0 x 1.3 x 1.9 cm hypodense mass in the region of the endometrial canal -INFORMATION SYSTEMS SECURITY SPECIALIST consulted this admission. Recommend INFORMATION SYSTEMS SECURITY SPECIALIST US and O/P follow up with local INFORMATION SYSTEMS SECURITY SPECIALIST in [place] Elevated troponin Assessment AND Plan: -HS 15>14>14 on admission, likely in setting of acute COVID-19 infection -EKG on admission with no acute ischemic changes -Cardiology consulted. No further work up I spent 35 minutes in the visit, with more than 50% of the total tnql-uh-qfmq time of the visit in counseling / coordination of care.[facility] [id number] NoteHNO ID: [id number] Author: Ban Hull RN Service: Care Management Author Type: Registered Nurse Type: Care Mgt Initial Assessment Filed: 06/24/2022 2:11 PM Note Text: CARE MANAGEMENT: ASSESSMENT AND DISCHARGE PLAN SERVICE DATE: June 24, 2022 SERVICE TIME: 2:07 PM PRIMARY CARE PHYSICIAN: Lilo Grullon MD Primary Contact: Extended Emergency Contact Information Primary Emergency Contact: MARIALUISA CORNEJO Mobile Relation: Daughter Secondary Emergency Contact: Suggs,Melvin Address: [id number] [place] [id number] Relation: Spouse ADMISSION STATUS: Observation Insurance Provider: [employer] MEDICARE O NEEDS PRIOR TO DISCHARGE Needs Prior to Discharge: To Be Determined;IV Antibiotics;OT/PT Evaluation;Facility or Agency Choices;Home Care Order;Discharge Transportation POTENTIAL TRANSITION PLANS Home;Home Care;Group Home Facility/Intermediate Care Facility;To Be Determined Based on clinical judgement, Care Management will address the following needs: Medical;Functional Patient's perception of need for this admission: falls at home after recent discharge from [facility] ADVANCE DIRECTIVES Current Advance Directive: None Director Child Development Center Attempted to Assist with AD Completion: Yes Action: Education Provided MS/BEHAVIOR Baseline Mental Status Prior to this Illness what was the patient's Baseline Mental Status?: Alert AND Oriented;Difficulty completing tasks Prior to this illness, has anyone described the patient having any of the following behaviors?: Not Applicable Relationship of the informant to the patient:: Self READMISSION Last Discharge Date: 06/22/22 Is this Within the Past 30 days? From what level of care did patient present?: Home Last discharge within 30 days: Yes Is this a planned readmission?: No Unplanned Reason: Home support not sufficient Followed Up with Appointment Prior to Admission: No appointment scheduled Opportunities to avoid readmission were identified: Yes PATIENT SCREEN Patient/Extruder Operator Horizontal Stated Goals: To have reduction in symptoms;To improve my functional status;To return home to life as it was Under the care of a PCP?: Yes, External Provider Provider Name: Lilo Grullon Last Known Visit: Not sure Does the patient have transportation upon discharge?: Yes Situation: family Use of any community resources?: No Does the patient have a stable and supportive living arrangement and home setting?: Yes Are there any potential risks or gaps identified by risk/functional/fall,etc. scores in the EMR?: Yes Situation: fall risk Any potential risks related to substance abuse and/or behavioral health?: No Based on clinical judgement, Care Management will address the following needs: Medical;Functional CAREGIVER ASSESSMENT Caregiver is ready, willing and able to meet the patient's needs as recommended by the inter-professional team:: Other: See Comment Patient's transition needs and plan for meeting these needs: Needs TBD MEDICAL Medical Needs: Two or more chronic diseases;Fall risk or frequent falls;IV Antibiotics;Respiratory Insufficiency RT needs: Oxygen Health Issues Impacting Discharge Plan: Uncontrolled;Newly diagnosed;Chronic Uncontrolled: hypoxia, weakness Newly Diagnosed: UTI, Covid, Urinary Retention Chronic: Obeisty, Gerd, balance problem Medication Adherance I am convinced of the importance of my prescription medication: 0 - Agree Completely I worry that my prescription medication will do more harm than good to me : 0 - Disagree Completely I feel financially burdened by my kyl-pt-cnhsio expenses for my prescription medication:: 0 - Disagree Completely Risk Score: 0 Patient is categorized as: Low risk < 2 SOCIAL Living Arrangements: Home Lives With: Spouse Financial Resources: Retired Supportive Patient Contact:: Unable to assess at this time Contact Resources: Family Family Name/Phone: Richard [phone] (W) Is Patient Psychosocially Complex?: No Contact Resources: Family Family Name/Phone: Richard [phone] (W) Health Literacy How often do you need to have someone help you when you read instructions, pamphlets, or other written material from your doctor or pharmacy? : 2 - Rarely How confident are you filling out medical forms by yourself?: 2 - Quite a bit If Patient scores > 3 on either question, the following interventions were put into place:: Patient did not score > 3 on either question. Food Insecurity: No Food Insecurity Worried About Running Out of Food in the Last Year: Never true Ran Out of Food in the Last Year: Never true Financial Resource Strain: Low Risk Difficulty of Paying Living Expenses: Not hard at all Transportation Needs: No Transportation Needs Lack of Transportation (Medical) (more content not included)...[facility] 06-24-2022 History of Past illness Narrative* Problem Noted Date Resolved Date Acute respiratory failure with hypoxemia 022 06/27/2022 Elevated troponin 06/24/2022 07/05/2022 Acute respiratory failure with hypoxia 2 07/05/2022 COVID-19 06/20/2022 07/05/2022 Neck pain 06/08/2021 08/17/2021 Frequent falls 06/08/2021 08/17/2021 Weakness of back 06/08/2021 08/17/2021 documented as of this encounter (statuses as of 07/24/2022) [facility]12-05-2022 History of Past illness Narrative* Problem Noted Date Resolved Date Acute respiratory failure with hypoxemia 022 06/27/2022 Elevated troponin 06/24/2022 07/05/2022 Acute respiratory failure with hypoxia 2 07/05/2022 COVID-19 06/20/2022 07/05/2022 Neck pain 06/08/2021 08/17/2021 Frequent falls 06/08/2021 08/17/2021 Weakness of back 06/08/2021 08/17/2021 documented as of this encounter (statuses as of 07/25/2022) [facility]12-05-2022 History of Past illness Narrative* Problem Noted Date Resolved Date Acute respiratory failure with hypoxemia 022 06/27/2022 Elevated troponin 06/24/2022 07/05/2022 Acute respiratory failure with hypoxia 2 07/05/2022 COVID-19 06/20/2022 07/05/2022 Neck pain 06/08/2021 08/17/2021 Frequent falls 06/08/2021 08/17/2021 Weakness of back 06/08/2021 08/17/2021 documented as of this encounter (statuses as of 07/31/2022) [facility]12-05-2022 History of Past illness Narrative* Problem Noted Date Resolved Date Acute respiratory failure with hypoxemia 022 06/27/2022 Elevated troponin 06/24/2022 07/05/2022 Acute respiratory failure with hypoxia 2 07/05/2022 COVID-19 06/20/2022 07/05/2022 Neck pain 06/08/2021 08/17/2021 Frequent falls 06/08/2021 08/17/2021 Weakness of back 06/08/2021 08/17/2021 documented as of this encounter (statuses as of 08/12/2022) [facility]12-05-2022 History of Past illness Narrative* Problem Noted Date Resolved Date Acute respiratory failure with hypoxemia 022 06/27/2022 Elevated troponin 06/24/2022 07/05/2022 Acute respiratory failure with hypoxia 2 07/05/2022 COVID-19 06/20/2022 07/05/2022 Neck pain 06/08/2021 08/17/2021 Frequent falls 06/08/2021 08/17/2021 Weakness of back 06/08/2021 08/17/2021 documented as of this encounter (statuses as of 08/28/2022) [facility]12-05-2022 History of Past illness Narrative* Problem Noted Date Resolved Date Acute respiratory failure with hypoxemia 022 06/27/2022 Elevated troponin 06/24/2022 07/05/2022 Acute respiratory failure with hypoxia 2 07/05/2022 COVID-19 06/20/2022 07/05/2022 Neck pain 06/08/2021 08/17/2021 Frequent falls 06/08/2021 08/17/2021 Weakness of back 06/08/2021 08/17/2021 documented as of this encounter (statuses as of 08/28/2022) [facility]12-05-2022 History of Past illness Narrative* Problem Noted Date Resolved Date Acute respiratory failure with hypoxemia 022 06/27/2022 Elevated troponin 06/24/2022 07/05/2022 Acute respiratory failure with hypoxia 2 07/05/2022 COVID-19 06/20/2022 07/05/2022 Neck pain 06/08/2021 08/17/2021 Frequent falls 06/08/2021 08/17/2021 Weakness of back 06/08/2021 08/17/2021 documented as of this encounter (statuses as of 09/26/2022) [facility]12-05-2022 History of Past illness Narrative* Problem Noted Date Resolved Date Acute respiratory failure with hypoxemia 022 06/27/2022 Elevated troponin 06/24/2022 07/05/2022 Acute respiratory failure with hypoxia 2 07/05/2022 COVID-19 06/20/2022 07/05/2022 Neck pain 06/08/2021 08/17/2021 Frequent falls 06/08/2021 08/17/2021 Weakness of back 06/08/2021 08/17/2021 documented as of this encounter (statuses as of 09/26/2022) [facility]12-05-2022 History of Past illness Narrative* Problem Noted Date Resolved Date Acute respiratory failure with hypoxemia 022 06/27/2022 Elevated troponin 06/24/2022 07/05/2022 Acute respiratory failure with hypoxia 07/05/2022 COVID-19 06/20/2022 07/05/2022 Neck pain 06/08/2021 08/17/2021 Frequent falls 06/08/2021 08/17/2021 Weakness of back 06/08/2021 08/17/2021 documented as of this encounter (statuses as of 09/27/2022) [facility]12-05-2022 History of Past illness Narrative* Problem Noted Date Resolved Date Acute respiratory failure with hypoxemia 022 06/27/2022 Elevated troponin 06/24/2022 07/05/2022 Acute respiratory failure with hypoxia 2 07/05/2022 COVID-19 06/20/2022 07/05/2022 Neck pain 06/08/2021 08/17/2021 Frequent falls 06/08/2021 08/17/2021 Weakness of back 06/08/2021 08/17/2021 documented as of this encounter (statuses as of 10/03/2022) [facility]12-05-2022 History of Past illness Narrative* Problem Noted Date Resolved Date Acute respiratory failure with hypoxemia 022 06/27/2022 Elevated troponin 06/24/2022 07/05/2022 Acute respiratory failure with hypoxia 2 07/05/2022 COVID-19 06/20/2022 07/05/2022 Neck pain 06/08/2021 08/17/2021 Frequent falls 06/08/2021 08/17/2021 Weakness of back 06/08/2021 08/17/2021 documented as of this encounter (statuses as of 10/21/2022) [facility]-05-2022 History of Past illness Narrative* Problem Noted Date Resolved Date Acute respiratory failure with hypoxemia 022 06/27/2022 Elevated troponin 06/24/2022 07/05/2022 Acute respiratory failure with hypoxia 2 07/05/2022 COVID-19 06/20/2022 07/05/2022 Neck pain 06/08/2021 08/17/2021 Frequent falls 06/08/2021 08/17/2021 Weakness of back 06/08/2021 08/17/2021 documented as of this encounter (statuses as of 10/22/2022) [facility]12-05-2022 History of Past illness Narrative* Problem Noted Date Resolved Date Acute respiratory failure with hypoxemia 022 06/27/2022 Elevated troponin 06/24/2022 07/05/2022 Acute respiratory failure with hypoxia 2 07/05/2022 COVID-19 06/20/2022 07/05/2022 Neck pain 06/08/2021 08/17/2021 Frequent falls 06/08/2021 08/17/2021 Weakness of back 06/08/2021 08/17/2021 documented as of this encounter (statuses as of 10/31/2022) [facility]-2022 History of Past illness Narrative* Problem Noted Date Resolved Date Acute respiratory failure with hypoxemia 022 06/27/2022 Elevated troponin 06/24/2022 07/05/2022 Acute respiratory failure with hypoxia 2 07/05/2022 COVID-19 06/20/2022 07/05/2022 Neck pain 06/08/2021 08/17/2021 Frequent falls 06/08/2021 08/17/2021 Weakness of back 06/08/2021 08/17/2021 documented as of this encounter (statuses as of 10/31/2022) [facility]-05-2022 History of Past illness Narrative* Problem Noted Date Resolved Date Acute respiratory failure with hypoxemia 022 06/27/2022 Elevated troponin 06/24/2022 07/05/2022 Acute respiratory failure with hypoxia 2 07/05/2022 COVID-19 06/20/2022 07/05/2022 Neck pain 06/08/2021 08/17/2021 Frequent falls 06/08/2021 08/17/2021 Weakness of back 06/08/2021 08/17/2021 documented as of this encounter (statuses as of 11/13/2022) [facility]-05-2022 History of Past illness Narrative* Problem Noted Date Resolved Date Acute respiratory failure with hypoxemia 022 06/27/2022 Elevated troponin 06/24/2022 07/05/2022 Acute respiratory failure with hypoxia 2 07/05/2022 COVID-19 06/20/2022 07/05/2022 Neck pain 06/08/2021 08/17/2021 Frequent falls 06/08/2021 08/17/2021 Weakness of back 06/08/2021 08/17/2021 documented as of this encounter (statuses as of 11/20/2022) [facility]2022 History of Past illness Narrative* Problem Noted Date Resolved Date Acute respiratory failure with hypoxemia 022 06/27/2022 Elevated troponin 06/24/2022 07/05/2022 Acute respiratory failure with hypoxia 2 07/05/2022 COVID-19 06/20/2022 07/05/2022 Neck pain 06/08/2021 08/17/2021 Frequent falls 06/08/2021 08/17/2021 Weakness of back 06/08/2021 08/17/2021 documented as of this encounter (statuses as of 11/21/2022) [facility]2022 History of Past illness Narrative* Problem Noted Date Resolved Date Acute respiratory failure with hypoxemia 022 06/27/2022 Elevated troponin 06/24/2022 07/05/2022 Acute respiratory failure with hypoxia 2 07/05/2022 COVID-19 06/20/2022 07/05/2022 Neck pain 06/08/2021 08/17/2021 Frequent falls 06/08/2021 08/17/2021 Weakness of back 06/08/2021 08/17/2021 documented as of this encounter (statuses as of 11/22/2022) [facility]2022 History of Past illness Narrative* Problem Noted Date Resolved Date Acute respiratory failure with hypoxemia 022 06/27/2022 Elevated troponin 06/24/2022 07/05/2022 Acute respiratory failure with hypoxia 2 07/05/2022 COVID-19 06/20/2022 07/05/2022 Neck pain 06/08/2021 08/17/2021 Frequent falls 06/08/2021 08/17/2021 Weakness of back 06/08/2021 08/17/2021 documented as of this encounter (statuses as of 12/19/2022) [facility]-05-2022 History of Past illness Narrative* Problem Noted Date Resolved Date Acute respiratory failure with hypoxemia 022 06/27/2022 Elevated troponin 06/24/2022 07/05/2022 Acute respiratory failure with hypoxia 2 07/05/2022 COVID-19 06/20/2022 07/05/2022 Neck pain 06/08/2021 08/17/2021 Frequent falls 06/08/2021 08/17/2021 Weakness of back 06/08/2021 08/17/2021 documented as of this encounter (statuses as of 12/20/2022) [facility]2022 History of Past illness Narrative* Problem Noted Date Resolved Date Acute respiratory failure with hypoxemia 022 06/27/2022 Elevated troponin 06/24/2022 07/05/2022 Acute respiratory failure with hypoxia 2 07/05/2022 COVID-19 06/20/2022 07/05/2022 Neck pain 06/08/2021 08/17/2021 Frequent falls 06/08/2021 08/17/2021 Weakness of back 06/08/2021 08/17/2021 documented as of this encounter (statuses as of 12/21/2022) [place] [address]-05-2022 History of Past illness Narrative* Problem Noted Date Resolved Date Acute respiratory failure with hypoxemia 022 06/27/2022 Elevated troponin 06/24/2022 07/05/2022 Acute respiratory failure with hypoxia 07/05/2022 COVID-19 06/20/2022 07/05/2022 Neck pain 06/08/2021 08/17/2021 Frequent falls 06/08/2021 08/17/2021 Weakness of back 06/08/2021 08/17/2021 documented as of this encounter (statuses as of 01/24/2023) [facility]-05[facility]2022 History of Past illness Narrative* Problem Noted Date Diagnosed Date Resolved Date Acute respiratory failure with hypoxemia 06/24/2022 06/27/2022 Elevated troponin 06/24/2022 07/05/2022 Acute respiratory failure with hypoxia 06/24/2022 07/05/2022 COVID-19 06/20/2022 07/05/2022 Neck pain 06/08/2021 08/17/2021 Frequent falls 06/08/2021 08/17/2021 Weakness of back 06/08/2021 08/17/2021 documented as of this encounter (statuses as of 01/25/2023) [facility]-05-2022 NoteHNO ID: [id number] Author: Leonela Stein MD Service: ? Author Type: Physician Type: Progress Notes Filed: 06/25/2022 9:15 PM Note Text: [facility] - General Progress Note CHRISTIAN SUGGS : 1945 AGE: 76 SEX: F CSN: [id number] [facility]: [facility] LOCATION: [id number] ATTENDING PHYSICIAN: Leonela Stein M.D. DATE OF SERVICE: 06/24/2022 TIME OF SERVICE: 10:00 AM SUBJECTIVE: The patient seen and examined. The patient continued to report being weak, generalized. No focal weakness, has intermittent cough. No chest pain, tightness, or pressure. No shortness of breath. Admitted to the hospital with generalized weakness and COVID-19 was initiated, remdesivir treatment, was found to have endometrial mass. DIVISION FIELD INSPECTOR is being consulted. ASSESSMENT AND PLAN: 1. COVID-19 infection. Continue with isolation. Started on IV remdesivir. Monitor pulse ox. 2. Endometrial mass, DIVISION FIELD INSPECTOR consult. 3. Urinary retention. Damon catheter, consult Urology. 4. Weakness, debility, PT/OT. 5. Urinary tract infection, was placed on IV ceftriaxone. Follow up C and S. The above has been discussed with the patient, daughter on the phone. Her daughter is a nursing supervisor electronic testing at [facility]. She would like the patient to be evaluated to be discharged to rehab at [facility]. product manager e commerce consulted. We will follow up. Leonela Stein M.D. Internal Medicine RICHTER:[id number] NoteHNO ID: [id number] Author: Leonela Stein MD Service: ? Author Type: Physician Type: Progress Notes Filed: 06/25/2022 11:10 PM Note Text: [facility] - General Progress Note CHRISTIAN SUGGS : 1945 AGE: 76 SEX: F CSN: [id number] [facility]: [facility] LOCATION: [facility] ATTENDING PHYSICIAN: Leonela Stein M.D. DATE OF SERVICE: 06/24/2022 SUBJECTIVE: The patient seen and examined. The patient continued to report being weak, generalized. No focal weakness, has intermittent cough. No chest pain, tightness, or pressure. No shortness of breath. Admitted to the hospital with generalized weakness and COVID-19 was initiated, remdesivir treatment, was found to have endometrial mass. DIVISION FIELD INSPECTOR is being consulted. ASSESSMENT AND PLAN: 1. COVID-19 infection. Continue with isolation. Started on IV remdesivir. Monitor pulse ox. 2. Endometrial mass, DIVISION FIELD INSPECTOR consult. 3. Urinary retention. Damon catheter, consult Urology. 4. Weakness, debility, PT/OT. 5. Urinary tract infection, was placed on IV ceftriaxone. Follow up C and S. The above has been discussed with the patient, daughter on the phone. Her daughter is a nursing supervisor electronic testing at [facility]. She would like the patient to be evaluated to be discharged to rehab at [facility]. product manager e commerce consulted. We will follow up. PAST MEDICAL HISTORY Diagnosis Date Allergic rhinitis Arthritis Back C. difficile enteritis History of back surgery 2011 Melanoma (HCC) right thigh Rotator cuff tear arthropathy of right shoulder 2012 Social History Tobacco Use Smoking status: Never Smokeless tobacco: Never Vaping Use Vaping Use: Never used Substance Use Topics Alcohol use: No Drug use: No FAMILY HISTORY Problem Relation Age of Onset Heart Father late in life Breast Cancer Maternal Aunt Diabetes Other none Colon Cancer Other none Coronary Artery Disease Other none PAST SURGICAL HISTORY Procedure Laterality Date ARTHRP KNE CONDYLEANDPLATU MEDIALANDLAT COMPARTMENTS Right 10/2014 CARPAL TUNNEL 2009 bilateral COLONOSCOPY FLX DX W/COLLJ SPEC WHEN PFRMD 02-02-16 JOINT REPLACEMENT HX ORTHOPEDICS SURGERY HX PAST SURGICAL HISTORY OF 1999 bladder repair PAST SURGICAL HISTORY OF 2007 melanoma removal No results found for: HBA1C R.O.S negative other than HPI AND PMH all other SYS reviewed and negative. Current Facility-Administered Medications Medication Dose Route Frequency Provider Last Rate Last Admin NaCl 0.9% iv flush bag 20 mL INTRAVENOUS PRN Dipika Melyl, PLUMBER GASFITTER.BRIM SHAPER sodium chloride 0.9 % (flush) 3-5 mL (BD POSIFLUSH) 3-5 mL INTRAVENOUS q 12 H Dipikacaitlin Boonel, PLUMBER GASFITTER.BRIM SHAPER 5 mL at 06/24/222113 acetaminophen 650 mg tab(s) (TYLENOL) 650 mg ORAL q 6 H PRN Dipikacaitlin Boonel, PLUMBER GASFITTER.BRIM SHAPER 650 mg at 06/24/222109 zhmfhap-lfskkaluc-ceuuitm D3 500 mg-5 mcg (200 unit) 1 tablet 1 tablet ORAL BID Dipika Melyl, PLUMBER GASFITTER.BRIM SHAPER 1 tablet at 06/24/222044 budesonide, enteric coated 6 mg cap(s) (ENTOCORT EC) 6 mg ORAL BEFORE BREAKFAST DAILY Dipika Melyl, PLUMBER GASFITTER.BRIM SHAPER 6 mg at 06/24/22900 therapeutic multivitamin-minerals tablet (THERA-M PLUS) 1 tablet ORAL DAILY Dipika Melyl, PLUMBER GASFITTER.BRIM SHAPER 1 tablet at 06/24/22 09 meloxicam 7.5 mg tab(s) (MOBIC) 7.5 mg ORAL DAILY Dipika Frederick APRN.BRIM SHAPER 7.5 mg at 06/24/22900 aspirin, enteric coated 81 mg tab(s) 81 mg ORAL DAILY Dipika Frederick APRN.BRIM SHAPER 81 mg at 06/24/22901 DULoxetine 30 mg cap(s) (CYMBALTA) 30 mg ORAL AT BEDTIME Dipika Frederick APRN.BRIM SHAPER 30 mg at 06/24/222044 rosuvastatin 5 mg tab(s) (CRESTOR) 5 mg ORAL AT BEDTIME Dipika Frederick APRN.BRIM SHAPER 5 mg at 06/24/222044 cefTRIAXone iv piggyback 1 g in dextrose (iso-osmotic) 50 mL (ROCEPHIN) 1 g INTRAVENOUS q 24 H Dipika Frederick APRN.CNP Stopped at 06/24/[address] 40 mg tab(s) (PROTONIX) 40 mg ORAL DAILY (6 AM) Dipika Frederick APRN.BRIM SHAPER 40 mg at 06/24/22 0546 remdesivir in NaCl 0.9% Vial-Mate/ADD-[place] 100 mg 275 mL 100 mg INTRAVENOUS q 24 HR Vivien Dietz MD Stopped at 06/24/222034 dexAMETHasone 6 mg tab(s) (DECADRON) 6 mg ORAL DAILY WITH BREAKFAST Vivien Dietz MD 6 mg at 06/24/22900 melatonin 3 mg tab(s) 3 mg ORAL AT BEDTIME PRN Cb Singh APRN.BRIM SHAPER 3 mg at 06/24/222109 Intake/Output Summary (Last 24 hours) at 06/25/2022 0041 Last data filed at 06/24/2022 1500 Gross per 24 hour Intake 410 ml Output 725 ml Net -315 ml DATA: CBC: No results for input(s): WBC, RBC, HB, HCT, PLT, MCV, MCH, MPV, RDW in the last 24 hours. CMP: Recent Labs 06/24/22 0728 NA 145* K 3.9 CHLOR 109* CO2 21* BUN 16 CREAT 0.76 GLUC 94 TPROT 6.0* CA 8.7 TBILI 0.2 ALKPHOS 68 ALT 19 AST 20 ANION 15 Glucose (mg/dL) Date Value 06/24/2022 94 BUN (mg/dL) Date Value 06/24/2022 16 Creatinine (mg/dL) Date Value 06/24/2022 0.76 Sodium (mmol/L) Date Value 06/24/2022 145 (H) Potassium (mmol/L) Date Value 06/24/2022 3.9 Chloride (more content not included)...[id number] NoteHNO ID: [id number] Author: Leonela Stein MD Service: ? Author Type: Physician Type: Progress Notes Filed: 06/23/2022 8:05 PM Note Text: [facility] - General Progress Note CHRISTIAN SUGGS : 1945 AGE: 76 SEX: F CSN: [id number] [facility]: [facility] LOCATION: [facility] ATTENDING PHYSICIAN: Leonela Stein M.D. DATE OF SERVICE: 06/23/2022 TIME OF SERVICE: 10:00 AM SUBJECTIVE: This is a 76-year-old who was admitted to the hospital with generalized weakness, fall, and also COVID-19 infection. The patient was found to have elevation of high-sensitivity troponin. No chest pain, tightness, or pressure. Had 1 reading of pulse oximetry of 85%. ASSESSMENT AND PLAN: 1. Generalized weakness, recurrent fall. Admitted to the hospital. Fall precaution. PT, OT. Supportive care, treat underlying causes. 2. COVID-19 infection with 1 reading of hypoxia of 85%. Admitted to the hospital. Obtain D-dimer. Monitor pulse ox. O2 support to keep pulse ox above 92%. Isolation. Consult Infectious Disease for evaluation for remdesivir treatment. 3. Hypokalemia, replace. 4. CT finding of the endometrial mass. Consulted Mobile Plant Operators. 5. Acute cystitis. IV ceftriaxone. Urine culture and sensitivity. 6. Generalized weakness. She had a CT, could not rule out MVH. Consider Neuro consultation. Case has been discussed with the ED, consultants. We will follow up. Leonela Stein M.D. Internal Medicine RICHTER:[id number] /[id number] NoteHNO ID: [id number] Author: Dipika Frederick APRN.CNP Service: Hospital Medicine Author Type: Nurse Practitioner Type: Plan of Care Filed: 06/23/2022 2:20 AM Note Text: This is 76-year-old female with past medical history significant for arthritis and right thigh melanoma who presents as a transfer from [place] emergency department for weakness and a fall. Her fall occurred at home. Patient's daughter states that she was getting up to go to the bathroom and fell. Unsure if she hit her head or not. Prior to that she was recently admitted for observation at [facility] for generalized weakness and COVID and discharged the day prior. A Damon catheter was placed at that time for urinary retention with plan for outpatient voiding trial by Urology. In the ED she underwent CT brain which revealed no acute intracranial abnormality, CT abdomen pelvis revealed 2.0 x 1.3 x 1.9 cm hypodense mass in the region of the endometrial canal. Chest x-ray without any acute abnormality. HSTNT 115, 14, 14, CMP otherwise unremarkable, CBC insignificant, UA with few bacteria and 3+ leuk esterase. She was started on Rocephin. She was admitted as a transfer to [facility] for further work-up of the above. PHYSICAL EXAMINATION: General appearance: Well appearing, alert, in no acute distress, well-hydrated, well nourished. Skin: Skin color, texture, turgor normal, no suspicious rashes or lesions Neck: Supplet Lungs: Lungs clear to auscultation. No wheezing, rhonchi, rales. Heart: RRR without murmur, gallop, or rubs. No ectopy Abdomen: Normal abdominal exam Extremities: No deformities, edema, skin discoloration, clubbing or cyanosis. Good capillary refill. Neuro: Negative. Plan: - Continue Rocephin for UTI, maintain damon given urinary retention. Consider urology consult for inpatient voiding trial, defer to primary - Regular diet, closely monitor PO intake, no immediate indication for IVF - Defer decision regarding mobile mechanic consult for inpatient vs. outpatient workup of endometrial canal mass to primary team in AM - Contact/droplet precautions for known prior COVID-19 infection - Continuous telemetry - Fall precautionsWal[facility] [id number] NoteHNO ID: [id number] Author: JODI Portillo) Service: ? Author Type: Technologist Type: Progress Notes Filed: 05/30/2022 11:38 AM Note Text: Radiology Service Progress Note DATE OF SERVICE: May 30, 2022 TIME: 11:33 AM PATIENT IDENTITY VERIFICATION COMPLETED USING TWO (2) STANDARD IDENTIFIERS: Name and Date of confirmed by patient verbally. FALL SCREENING: Has the patient had 2 falls in the last year or 1 fall with injury or currently using an Ambulatory Assistive Device (Walker, Cane, Wheelchair, Crutches, etc.)? No PATIENT GENDER DATA: Female. status: : No status: NO. PATIENT RELEVANT IMPLANT DATA REVIEWED: Yes ALLERGIES: Reviewed and unchanged CONTRAST ALLERGY: NO. EXAM: MRI - CONTRAST TYPE: GROUP II PERIPHERAL IV DATA: Ambulatory: A peripheral IV was started in the Left antecubital site with a Angio cath: 22 gauge. RADIOLOGY DEPARTMENT: MR; Exam(s) Completed: Head: Routine Brain SIGNATURE: RT Bandar(R) PATIENT NAME: Christian Suggs DATE: May 30, 2022 TIME: 11:33 [facility]11-10-2022 History of Present illness Narrative* Zulema Nation RT(R) - 05/30/2022 11:20 AM EST Radiology Service Progress Note DATE OF SERVICE: May 30, 2022 TIME: 11:33 AM PATIENT IDENTITY VERIFICATION COMPLETED USING TWO (2) STANDARD IDENTIFIERS: Name and Date of confirmed by patient verbally. FALL SCREENING: Has the patient had 2 falls in the last year or 1 fall with injury or currently using an Ambulatory Assistive Device (Walker, Cane, Wheelchair, Crutches, etc.)? No PATIENT GENDER DATA: Female. status: : No status: NO. PATIENT RELEVANT IMPLANT DATA REVIEWED: Yes ALLERGIES: Reviewed and unchanged CONTRAST ALLERGY: NO. EXAM: MRI - CONTRAST TYPE: GROUP II PERIPHERAL IV DATA: Ambulatory: A peripheral IV was started in the Left antecubital site with a Angio cath: 22 gauge. RADIOLOGY DEPARTMENT: MR; Exam(s) Completed: Head: Routine Brain SIGNATURE: RT Bandar(R) PATIENT NAME: Christian Suggs DATE: May 30, 2022 TIME: 11:33 AM documented in [facility] encounterOhio[facility] History of Present illness Narrative* Jean Rodríguez MD - 03/26/2022 11:00 AM EDT NEUROSURGERY FOLLOW UP OFFICE NOTE Dr. Jean Rodríguez MD, FACS Date of visit: March 26, 2022 Patient Name: Ms.Tuula [place] Suggs Date of : 1945 Current Age: [age] year old Sex: female MRN/E# [id number] Last Office Visit: 03/05/2022 Chief Complaint: Patient presents with: Established Patient SUBJECTIVE: The patient presents as a follow-up with imaging (MRI/MRA B) for evaluation. She was recently seen for consult on 03/05/2022 as referral from the [place] emergency department. She had sustained a fall while working in the garden and losing her balance. During work-up she reported that she had been having balance issues over the last year with multiple falls over the prior [address] of the brain was obtained which was concerning for ventriculomegaly. Imaging was compared to prior imaging from September 2021 and appeared stable. Given the finding it was recommended that she be worked up by neurosurgery for possible normal pressure hydrocephalus. At her visit she reported balance issues formany years that has progressed over the last 2. She also reported difficulty with her memory and urinary incontinence. During her evaluation she reported that her sister recently underwent surgery for 2 unruptured aneurysms and wondered if she needed to be evaluated for aneurysms. 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 She has had persistent low back pain since surgery. In regard to her primary complaints recommendation was to obtain an MRI of the brain given the ventriculomegaly and memory issues and alsoan MRI due to the family history of aneurysms. It was discussed that if indeed she did demonstrate normal pressure hydrocephalus on imaging she could consider a high-volume CSF withdrawal and examination to determine if a ventriculoperitoneal shunt would be beneficial. Today she states symptoms arepersistent. STM is poor, balance is poor and she has urinary frequency as well. She presents for image review, evaluation and plan of care. Symptoms: Decreased STM, balance and urinary frequency PREVIOUS CONSERVATIVE TREATMENTS: None PREVIOUS SURGERY: SURGERY #1: L2-S1 TLIF PAIN EVALUATION No data found in the last 1 encounters. PAST MEDICAL HISTORY Diagnosis Date Allergic rhinitis Arthritis Back C. difficile enteritis History of back surgery 2011 Melanoma (HCC) right thigh Rotator cuff tear arthropathy of right shoulder 2012 PAST SURGICAL HISTORY Procedure Laterality Date ARTHRP KNE CONDYLE&PLATU MEDIAL&LAT COMPARTMENTS Right 10/2014 CARPAL TUNNEL 2009 bilateral COLONOSCOPY FLX DX W/COLLJ SPEC WHEN PFRMD 02-02-16 JOINT REPLACEMENT HX ORTHOPEDICS SURGERY HX PAST SURGICAL HISTORY OF 1999 bladder repair PAST SURGICAL HISTORY OF 2007 melanoma removal FAMILY HISTORY Problem Relation Age of Onset Heart Father late in life Breast Cancer Maternal Aunt Diabetes Other none Colon Cancer Other none Coronary Artery Disease Other none ALLERGIES Allergen Reactions Mesalamine Myalgia Flagyl [Nitroimidaz* Other: See Comments metal mouth Hydrocodone Bitartr* GI Upset Oxycodone GI Upset Scopolamine Other: See Comments Current Outpatient Medications Medication Sig Dispense Refill omeprazole (PRILOSEC) 40 mg capsule Take 40 mg by mouth once daily. budesonide, enteric coated (ENTOCORT EC) 3 mg 24 hr capsule Take 6 mg by mouth daily before breakfast. meloxicam (MOBIC) 7.5 mg tablet Take 1 tablet by mouth once daily. Take this directly following a meal 60 tablet 0 DULoxetine (CYMBALTA) 30 mg capsule Take 1 capsule by mouth daily at bedtime. aspirin, enteric coated (ASPIRIN, ENTERIC COATED) 81 mg EC tablet Take 81 mg by mouth once daily. multivitamin ORAL tablet Take 1 tablet by mouth once daily. 0 Calcium-Vitamin D3-Vitamin K 500-100-40 mg-unit-mcg chew Take 1 tablet by mouth. CHEW TAB BEFORE SWALLOWING twice daily. 0 No current facility-administered medications for this visit. REVIEW OF SYSTEMS Review of Systems Constitutional: Negative for chills, diaphoresis (Negative for night sweats.) and fever. HENT: Negative for ear discharge and rhinorrhea. Eyes: Negative for discharge. Respiratory: Negative for cough, shortness of breath and wheezing. Cardiovascular: Negative for chest pain, palpitations and leg swelling. Gastrointestinal: Negative for constipation, diarrhea, nausea and vomiting. Endocrine: Negative for cold intolerance and heat intolerance. Genitourinary: Negative for frequency. Negative for urinary incontinence and urinary retention. Musculoskeletal: Positive for gait problem. Negative for back pain, joint swelling, myalgias and neck pain. Skin: Negative for rash (Negative for hives and skin lesions.). Allergic/Immunologic: Negative for environmental allergies and food allergies. Negative for contact allergy, seasonal allergies. Neurological: Negative for dizziness, seizures, syncope, weakness, light- headedness, numbness (Negative for numbness in extremities.) and headaches. Hematological: Does not bruise/bleed easily. Psychiatric/Behavioral: The patient is not nervous/anxious. Negative for depression. OBJECTIVE: BP 118/70 Pulse 72 Ht 5' 3 (1.60m) Wt 177 lb 7.5 oz (80.5kg) SpO2 98% BMI 31.45 kg/(m^2). PHYSICAL EXAM: Patient is awake and alert. I did not perform detailed memory function testing other than the fact that the patient herself and her family indicate that she has had some difficulty with remembering things. Her cranial nerves II through XII are normal. She has good strength bilaterally. Her muscle tone is normal. She has no sensory deficit. Her gait is more of a waddling type than spastic or apraxic. IMAGING: MRI/MRA Brain WO/W IVCON performed on 03/20/22 demonstrates: IMPRESSION: 1. No restricted diffusion indicating acute infarction. No acute intracranial abnormality 2. Moderate degree of generalized ventricular enlargement without transependymal migration of fluid. Overall, ventricular size corresponds to degree of atrophy. However, if there is a high degree of clinical suspicion for NPH, essentially cannot be totally excluded 3. Unremarkable intracranial MRA ASSESSMENT/PLAN: 1. 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 I do not see a mass lesion andthe ventricular size is not out of proportion of atrophic changes. I recommended that she see a neurologist and she said she does have a neurologist in [place] that requested a copy of the reports and the images for review and consideration of whether the patient has dementia or not and whether she has NPH. After his evaluation I would like to see the patient if he thinks that she is a patient that would benefit from a ventriculoperitoneal shunt. Patient and her family were referring to the fact that he may do a spinal tap and test her before and after and see if there is improvement which I think is perfect aware of determining if she indeed would be a patient that benefits from the DESIGNER/WRITER shunt.We are going to provide her with discs with the images of the MRI MRA as well as the reports. Jean Rodríguez MD Follow Up: Return if symptoms worsen or fail to improve. This note was partially generated using [employer] voice recognition system, and there may be some incorrect words, spellings, and punctuation that were not noted in checking the note before saving. documented in this encounterOhio[facility]11-19-[facility]21 History of Past illness Narrative* Problem Noted Date Resolved Date Neck pain 06/08/2021 08/17/2021 Frequent falls 06/08/2021 08/17/2021 Weakness of back 06/08/2021 08/17/2021 documented as of this encounter (statuses as of 03/26/2022) [facility] History of Past illness Narrative* Problem Noted Date Diagnosed Date Resolved Date Neck pain 06/08/2021 08/17/2021 Frequent falls 06/08/2021 08/17/2021 Weakness of back 06/08/2021 08/17/2021 documented as of this encounter (statuses as of 05/25/2023) [facility] History of Present illness Narrative* Chris Gonzalez RT(R) - 05/18/2021 12:00 PM EDT Radiology Service Progress Note PATIENT NAME: Christian Suggs DATE OF SERVICE: May 18, 2021 TIME: 12:35 PM PATIENT IDENTITY VERIFICATION COMPLETED USING TWO (2) IDENTIFIERS: Name and Date of confirmedby patient verbally. FALL SCREENING: Has the patient had 2 falls in the last year or 1 fall with injury or currently using an Ambulatory Assistive Device (Walker, Cane, Wheelchair, Crutches, etc.)? No PATIENT GENDER DATA: Female. status: : No status: NO. PATIENT RELEVANT IMPLANT DATA REVIEWED: Not Applicable RADIOLOGY DEPARTMENT: General X-ray: Exam(s) Completed: Upper Extremity X- Ray(s): Hand, bilateral PERIPHERAL IV DATA: Not applicable SIGNED BY: RT Adalid(R) May 18, 2021 12:35 PM documented [facility] [place] [facility]* Diagnosis Onset Date Resolution Status GERD (gastroesophageal reflux disease) acute Lymphocytic colitis acute Obesity acute GERD (gastroesophageal reflux disease) acute Lymphocytic colitis acute Obesity acute [facility] Work Phone: Evaluation note* Diagnosis Onset Date Resolution Status GERD (gastroesophageal reflux disease) acute Lymphocytic colitis acute Obesity acute GERD (gastroesophageal reflux disease) acute Lymphocytic colitis acute Obesity acute Abnormality of gait and mobility chronic Low back pain chronic Mild cognitive impairment ch ronic Neck pain chronic [facility] Work Phone: Evaluation note* Diagnosis Onset Date Resolution Status GERD (gastroesophageal reflux disease) acute Lymphocytic colitis acute Obesity acute Abnormality of gait and mobility chronic Low back pain chronic Mild cognitive impairment ch ronic Neck pain chronic GERD (gastroesophageal reflux disease) acute Lymphocytic colitis acute Abnormality of gait and mobility chronic [facility] Work Phone: Evaluation note* Diagnosis Onset Date Resolution Status GERD (gastroesophageal reflux disease) acute Lymphocytic colitis acute Abnormality of gait and mobility chronic Abnormality of gait and mobility chronic Chronic lumbar radiculopathy chronic Low back pain chronic Mild cognitive impairment ch ronic Neck pain chronic Normal pressure hydrocephalus chronic [facility] Work Phone: Evaluation note* Diagnosis Cerebral ventriculomegaly- Primary Other conditions of brain documented in this [facility] [place] [facility]* Diagnosis Onset Date Resolution Status Abnormality of gait and mobility chronic Chronic lumbar radiculopathy chronic Low back pain chronic Mild cognitive impairment ch ronic Neck pain chronic Normal pressure hydrocephalus chronic GERD (gastroesophageal reflux disease) chronic Lymphocytic colitis chronic Obesity chronic [facility] Work Phone: Evaluation note* Diagnosis Onset Date Resolution Status Abnormality of gait and mobility chronic Chronic lumbar radiculopathy chronic Low back pain chronic Mild cognitive impairment ch ronic Neck pain chronic Normal pressure hydrocephalus chronic GERD (gastroesophageal reflux disease) chronic Lymphocytic colitis chronic Obesity chronic Abnormality of gait and mobility chronic Low back pain chronic Mild cognitive impairment ch ronic Neck pain chronic Normal pressure hydrocephalus chronic [facility] Work Phone: Evaluation note* Diagnosis Onset Date Resolution Status Abnormality of gait and mobility chronic Chronic lumbar radiculopathy chronic Low back pain chronic Mild cognitive impairment ch ronic Neck pain chronic Normal pressure hydrocephalus chronic GERD (gastroesophageal reflux disease) chronic Lymphocytic colitis chronic Obesity chronic Abnormality of gait and mobility chronic Low back pain chronic Mild cognitive impairment ch ronic Neck pain chronic Normal pressure hydrocephalus chronic GERD (gastroesophageal reflux disease) chronic Lymphocytic colitis chronic Obesity chronic Abnormality of gait and mobility chronic Low back pain chronic Mild cognitive impairment ch ronic Neck pain chronic Normal pressure hydrocephalus chronic [facility] Work Phone: Evaluation note* Diagnosis Abnormal CT scan- Primary Other nonspecific (abnormal) findings on radiological and other examinations of body structure documented [facility] [place] [facility]* Diagnosis Intramural leiomyoma of uterus- Primary documented in this [facility] [place] [facility]* Diagnosis Endometrial polyp- Primary Polyp of corpus uteri Endometrial polyp Polyp of corpus uteri documented in this encounter [facility] note* Diagnosis Abnormal CT scan Other nonspecific (abnormal) findings on radiological and other examinations of body structure Preoperative examination- Primary Preoperative examination, unspecified Endometrial polyp Polyp of corpus uteri documented [facility] encounter [facility] [place] [facility]* Diagnosis Preoperative examination- Primary Preoperative examination, unspecified NPH (normal pressure hydrocephalus) (HCC) Idiopathic normal pressure hydrocephalus (INPH) KAISER (obstructive sleep apnea) Obstructive sleep apnea (adult) (pediatric) History of pulmonary embolism Personal history of pulmonary embolism Hyperlipidemia, unspecified hyperlipidemia type Lymphocytic colitis Other and unspecified noninfectious gastroenteritis and colitis Gastroesophageal reflux disease, unspecified whether esophagitis present Urinary retention Retention of urine, unspecified Endometrial polyp Polyp of corpus uteri documented in this encounter [facility] note* Diagnosis Onset Date Resolution Status GERD (gastroesophageal reflux disease) chronic Lymphocytic colitis chronic Obesity chronic Abnormality of gait and mobility chronic Low back pain chronic Mild cognitive impairment ch ronic Neck pain chronic Normal pressure hydrocephalus chronic Biliary dyskinesia acute GERD (gastroesophageal reflux disease) chronic Normal pressure hydrocephalus chronic Abnormality of gait and mobility chronic Low back pain chronic Mild cognitive impairment ch ronic Neck pain chronic Normal pressure hydrocephalus chronic Abnormality of gait and mobility chronic Low back pain chronic Mild cognitive impairment ch ronic Normal pressure hydrocephalus chronic Biliary dyskinesia acute GERD (gastroesophageal reflux disease) chronic Mild cognitive impairment ch ronic Normal pressure hydrocephalus chronic [facility] Work Phone: Evaluation note* Diagnosis NPH (normal pressure hydrocephalus) (HCC)- Primary Idiopathic normal pressure hydrocephalus (INPH) documented [facility] encounter [facility] [place] [facility]* Diagnosis NPH (normal pressure hydrocephalus) (HCC)- Primary Idiopathic normal pressure hydrocephalus (INPH) Other hydrocephalus (HCC) documented in this encounter [facility] [place] [facility]* Diagnosis NPH (normal pressure hydrocephalus) (HCC)- Primary Idiopathic normal pressure hydrocephalus (INPH) NPH (normal pressure hydrocephalus) (HCC) Idiopathic normal pressure hydrocephalus (INPH) documented in this encounter [facility] [place] [facility]* Diagnosis Preop testing- Primary Preoperative examination, unspecified Hyperlipidemia, unspecified hyperlipidemia type KAISER (obstructive sleep apnea) Obstructive sleep apnea (adult) (pediatric) History of pulmonary embolism Personal history of pulmonary embolism Rheumatoid arthritis, involving unspecified site, unspecified whether rheumatoid factor present (HCC) NPH (normal pressure hydrocephalus) (HCC) [G91.2 (ICD-10-CM)] Idiopathic normal pressure hydrocephalus (INPH) NPH (normal pressure hydrocephalus) (HCC) Idiopathic normal pressure hydrocephalus (INPH) documented in this encounter [facility] [place] [facility]* Diagnosis Other hydrocephalus (HCC)- Primary documented in this encounter [facility] [place] [facility]* Diagnosis NPH (normal pressure hydrocephalus) (HCC)- Primary 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 Presence of cerebrospinal fluid drainage device documented in this encounter [facility] [place] [facility]* Diagnosis Other hydrocephalus (HCC) documented in this encounter [facility] [place] [facility]* Diagnosis NPH (normal pressure hydrocephalus) (HCC)- Primary 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 Presence of cerebrospinal fluid drainage device documented in this encounter [facility] [place] [facility]* Diagnosis Onset Date Resolution Status Abnormality of gait and mobility chronic Low back pain chronic Mild cognitive impairment ch ronic Neck pain chronic Normal pressure hydrocephalus chronic Abnormality of gait and mobility chronic Low back pain chronic Mild cognitive impairment ch ronic Normal pressure hydrocephalus chronic Biliary dyskinesia acute GERD (gastroesophageal reflux disease) chronic Mild cognitive impairment ch ronic Normal pressure hydrocephalus chronic Biliary dyskinesia acute S/P DESIGNER/WRITER shunt acute [facility] Work Phone: Evaluation note* Diagnosis NPH (normal pressure hydrocephalus) (HCC) 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 Presence of cerebrospinal fluid drainage device documented [facility] this encounter [facility] [place] [facility]* Diagnosis NPH (normal pressure hydrocephalus) (HCC)- Primary 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 Presence of cerebrospinal fluid drainage device documented [facility] this encounter [facility] [place] [facility]* Diagnosis S/P ventriculoperitoneal shunt Presence of cerebrospinal fluid drainage device NPH (normal pressure hydrocephalus) (HCC) Idiopathic normal pressure hydrocephalus (INPH) documented in this encounter [facility] [place] [facility]* Diagnosis Onset Date Resolution Status Mild cognitive impairment ch ronic Normal pressure hydrocephalus chronic Urinary frequency chronic Collagenous colitis chronic GERD (gastroesophageal reflux disease) chronic Lymphocytic colitis chronic Obesity chronic [facility] Work Phone: Evaluation note* Diagnosis Onset Date Resolution Status Collagenous colitis chronic GERD (gastroesophageal reflux disease) chronic Lymphocytic colitis chronic Obesity chronic [facility] Work Phone: Evaluation note* Diagnosis NPH (normal pressure hydrocephalus) (HCC)- Primary 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 Presence of cerebrospinal fluid drainage device documented [facility] this encounter [facility] [place] [facility]* Diagnosis Primary osteoarthritis of both hands Preoperative examination- Primary Preoperative examination, unspecified NPH (normal pressure hydrocephalus) (HCC) Idiopathic normal pressure hydrocephalus (INPH) [facility]ISER (obstructive sleep apnea) Obstructive sleep apnea (adult) (pediatric) History of pulmonary embolism Personal history of pulmonary embolism Hyperlipidemia, unspecified hyperlipidemia type Lymphocytic colitis Other and unspecified noninfectious gastroenteritis and colitis Gastroesophageal reflux disease, unspecified whether esophagitis present Urinary retention Retention of urine, unspecified [facility] [place] [facility]* Diagnosis Fall at home, initial encounter- Primary Fall at home, initial encounter [W19.XXXA, Y92.009 (ICD-10-CM)] COVID-19 [U07.1 (ICD-10-CM)] Acute cystitis without hematuria [N30.00 (ICD-10-CM)] Acute cystitis Endometrial mass Other specified symptom associated with female genital organs Urinary tract infection with hematuria, site unspecified [N39.0, R31.9 (ICD-10-CM)] Acute respiratory failure with hypoxemia (HCC) [J96.01 (ICD-10-CM)] Elevated troponin [R77.8 (ICD-10-CM)] Other abnormal blood chemistry Urinary retention [R33.9 (ICD-10-CM)] Retention of urine, unspecified Cervical spondylosis without myelopathy Neck pain Cervicalgia Acute respiratory failure with hypoxemia (HCC) UTI (urinary tract infection) Urinary tract infection, site not specified Preoperative examination- Primary Preoperative examination, unspecified NPH (normal pressure hydrocephalus) (HCC) Idiopathic normal pressure hydrocephalus (INPH) KAISER (obstructive sleep apnea) Obstructive sleep apnea (adult) (pediatric) History of pulmonary embolism Personal history of pulmonary embolism Hyperlipidemia, unspecified hyperlipidemia type Lymphocytic colitis Other and unspecified noninfectious gastroenteritis and colitis Gastroesophageal reflux disease, unspecified whether esophagitis present Urinary retention Retention of urine, unspecified Preop testing- Primary Preoperative examination, unspecified Hyperlipidemia, unspecified hyperlipidemia type KAISER (obstructive sleep apnea) Obstructive sleep apnea (adult) (pediatric) History of pulmonary embolism Personal history of pulmonary embolism Rheumatoid arthritis, involving unspecified site, unspecified whether rheumatoid factor present (HCC) NPH (normal pressure hydrocephalus) (HCC) [G91.2 (ICD-10-CM)] Idiopathic normal pressure hydrocephalus (INPH) NPH (normal pressure hydrocephalus) (HCC)- Primary 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 Presence of cerebrospinal fluid drainage device documented in this encounter [facility] [place] noteNo assessment information availableWOhioHealth [facility] Work Phone: Reason for referral (narrative)* Diagnostic Procedure Only (Routine) - Authorized Specialty Diagnoses / Procedures Referred By Bimal t Referred To Contact [facility] Diagnoses Abnormal CT scan Procedures PELVIC US I US PELVIC NONOBSTETRIC REAL-TIME IMAGE COMPLETE Faby Santana MD [facility] [place] [address] [facility] [address] [place] [address] Referral ID Status Reason Start Date Expiration Date Visits Requested Visits Authorized [id number] Authorized Auto-Generat ed Referral 2 07/18/2023 1 1 [facility] for referral (narrative)* Diagnostic Procedure Only (Routine) - Closed Specialty Diagnoses / Procedures Referred By Sherlynac t Referred To Contact XR IMAGING Diagnoses Primary osteoarthritis of both hands Procedures XR HAND GENERAL 3V PA/LAT/OBL BILAT X-RAY HAND MINIMUM [address] [place] [address] [place] [address] [place] [address] Referral ID Status Reason Start Date Expiration Date V isits Requested Visits Authorized [id number] Closed Auto-Generate d Referral 05/18/2021 06/17/2022 1 1 [facility] for referral (narrative)No reason for referral information availableWOhioHealth [facility] Work Phone: Reason for visit Narrative* Diagnostic Procedure Only (Routine) - Closed Specialty Diagnoses / Procedures Referred By Contcristopher t Referred To Contact [facility] Diagnoses Abnormal CT scan Procedures PELVIC US WHI US PELVIC NONOBSTETRIC REAL-TIME IMAGE COMPLETE Faby Santana MD [address] [facility] [place] [address] [facility] [address] [place] [id number] Referral ID Status Reason Start Date Expiration Date V isits Requested Visits Authorized [id number] Closed Auto-Generate d Referral 07/19/2022 07/18/2023 1 1 [facility] Chief Complaint and Reason for Visit Chief Complaint R/S MISSED APPT ALTERED MENTAL STATUS FU Reason for Visit GERD (gastroesophage al reflux disease) Lymphocytic colitis Obesity GERD (gastroesophageal reflux disease) Lymphocytic colitis Obesity Chief Complaint R/S MISSED APPT ALTERED MENTAL STATUS FU MENTAL STATUS CHANGE EORDER Reason for Visit GERD (gastroesophage al reflux disease) Lymphocytic colitis Obesity GERD (gastroesophageal reflux disease) Lymphocytic colitis Obesity Abnormality of gait and mobility Low back pain Mild cognitive impairment Neck pain Chief Complaint ALTERED MENTAL STATU S FU MENTAL STATUS CHANGE EORDER 2 MO FU Reason for Visit GERD (gastroesophage al reflux disease) Lymphocytic colitis Obesity Abnormality of gait and mobility Low back pain Mild cognitive impairment Neck pain GERD (gastroesophageal reflux disease) Lymphocytic colitis Abnormality of gait and mobility Chief Complaint 2 MO FU 4 M FU SCREENING/OSTEO Reason for Visit GERD (gastroesophage al reflux disease) Lymphocytic colitis Abnormality of gait and mobility Abnormality of gait and mobility Chronic lumbar radiculopathy Low back pain Mild cognitive impairment Neck pain Normal pressure hydrocephalus Chief Complaint 4 M FU SCREENING/OSTEO 3 M FU Reason for Visit Abnormality of gait and mobility Chronic lumbar radiculopathy Low back pain Mild cognitive impairment Neck pain Normal pressure hydrocephalus GERD (gastroesophageal reflux disease) Lymphocytic colitis Obesity Chief Complaint 4 M FU SCREENING/OSTEO 3 M FU MRI follow up LBP,GAIT,CERVICALGIA,BALANCE PERFORMANCE TEST RUQ ABDOMINAL MASS Reason for Visit Abnormality of gait and mobility Chronic lumbar radiculopathy Low back pain Mild cognitive impairment Neck pain Normal pressure hydrocephalus GERD (gastroesophageal reflux disease) Lymphocytic colitis Obesity Abnormality of gait and mobility Low back pain Mild cognitive impairment Neck pain Normal pressure hydrocephalus Chief Complaint 4 M FU SCREENING/OSTEO 3 M FU MRI follow up RUQ ABDOMINAL MASS 3 MO FU RUQ SWELLING neck pain;abnormal gait LBP,GAIT,CERVICALGIA,BALANCE PERFORMANCE TEST 1 M FU Reason for Visit Abnormality of gait and mobility Chronic lumbar radiculopathy Low back pain Mild cognitive impairment Neck pain Normal pressure hydrocephalus GERD (gastroesophageal reflux disease) Lymphocytic colitis Obesity Abnormality of gait and mobility Low back pain Mild cognitive impairment Neck pain Normal pressure hydrocephalus GERD (gastroesophageal reflux disease) Lymphocytic colitis Obesity Abnormality of gait and mobility Low back pain Mild cognitive impairment Neck pain Normal pressure hydrocephalus Chief Complaint 3 MO FU RUQ SWELLING neck pain;abnormal gait LBP,GAIT,CERVICALGIA,BALANCE PERFORMANCE TEST 1 M FU ABNORMAL HIDA GAIT AND MEMORY normal pressure hydrocephalus, THYROID NODULE GAIT AND MEMORY GAIT AND MEMORY DISCUSS SURGERY Reason for Visit GERD (gastroesophage al reflux disease) Lymphocytic colitis Obesity Abnormality of gait and mobility Low back pain Mild cognitive impairment Neck pain Normal pressure hydrocephalus Biliary dyskinesia GERD (gastroesophageal reflux disease) Normal pressure hydrocephalus Abnormality of gait and mobility Low back pain Mild cognitive impairment Neck pain Normal pressure hydrocephalus Abnormality of gait and mobility Low back pain Mild cognitive impairment Normal pressure hydrocephalus Biliary dyskinesia GERD (gastroesophageal reflux disease) Mild cognitive impairment Normal pressure hydrocephalus Chief Complaint GAIT AND MEMORY normal pressure hydrocephalus, THYROID NODULE GAIT AND MEMORY GAIT AND MEMORY DISCUSS SURGERY UPDATE H&P EORDER Reason for Visit Abnormality of gait and mobility Low back pain Mild cognitive impairment Neck pain Normal pressure hydrocephalus Abnormality of gait and mobility Low back pain Mild cognitive impairment Normal pressure hydrocephalus Biliary dyskinesia GERD (gastroesophageal reflux disease) Mild cognitive impairment Normal pressure hydrocephalus Biliary dyskinesia S/P DESIGNER/WRITER shunt Chief Complaint 4 M FU FU Reason for Visit Mild cognitive impai rment Normal pressure hydrocephalus Urinary frequency Collagenous colitis GERD (gastroesophageal reflux disease) Lymphocytic colitis Obesity Chief Complaint 6 MO FO Reason for Visit Collagenous colitis GERD (gastroesophageal reflux disease) Lymphocytic colitis Obesity Advance Directives No Advanced Directives Records Found Advance Directive Response Recorded Date/ Time Advance Directives No May 26, 2019 9:40am Living Will No May 23 12:38pm Power of Pipe Production Worker No May 23, 2021 12:38pm Advance Directive Response Recorded Date/ Time Advance Directives No May 26, 2019 8:40am Living Will No May 23 11:38am Power of Pipe Production Worker No May 23, 2021 11:38am Advance Directive Response Recorded Date/ Time Advance Directives No May 26, 2019 9:40am Living Will No November 26, 2022 10 :47am Power of Pipe Production Worker No November 26, 2022 10:47am Advance Directive Response Recorded Date/ Time Advance Directives No May 26, 2019 9:40am Family History No Family History Records Found Relationship Condition Age at Onset Recorded Date/T ever brother Malignant neoplasm Unknown Alcoholism Unknown sister Anxiety Unknown Depression Unknown Summary Purpose Reason for Referral Specialty Diagnoses / Procedures Referred By Bimal t Referred To Contact CT IMAGING Diagnoses Other hydrocephalus (HCC) Procedures CT BRAIN WO IVCON CT HEAD/BRAIN W/O CONTRAST MATERIAL Lynn Murdock, PLUMBER GASFITTER.[employer]IM [employer]ER [address] [place] [address] Ct Imaging Referral ID Status Reason Start Date Expiration Date Visits Requested Visits Authorized [id number] Pending Review Auto-Generat ed Referral 10/16/2022 10/26/2023 1 1 Specialty Diagnoses / Procedures Referred By Bimal doyle Referred To Contact CT IMAGING Diagnoses Other hydrocephalus (HCC) Procedures CT BRAIN WO IVCON CT HEAD/BRAIN W/O CONTRAST MATERIAL Chacha Stein, PALesleyC [address] [place] [address] Ct Imaging Referral ID Status Reason Start Date Expiration Date Visits Requested Visits Authorized [id number] Pending Review Auto-Generat ed Referral 10/21/2022 11/20/2023 1 1 Referral ID Status Reason Start Date Expiration Date V isits Requested Visits Authorized [id number] Closed Auto-Generate d Referral 10/21/2022 04/28/2023 1 1 Specialty Diagnoses / Procedures Referred By Contac t Referred To Contact CT IMAGING Diagnoses NPH (normal pressure hydrocephalus) (HCC) S/P ventriculoperitoneal shunt Procedures CT BRAIN WO IVCON CT HEAD/BRAIN W/O CONTRAST MATERIAL Lynn Murdock, PLUMBER GASFITTER.BRIM SHAPER [address] [facility] [place] [address] Ct Imaging Referral ID Status Reason Start Date Expiration Date Visits Requested Visits Authorized [id number] Pending Review Auto-Generat ed Referral 11/13/2022 12/13/2023 1 1 Referral ID Status Reason Start Date Expiration Date V isits Requested Visits Authorized [id number] Closed Auto-Generate d Referral 11/13/2022 12/13/2023 1 1 Additional Source Comments Goals (unrecognized section and content) Goals may be documented in a n alternate sectionGoals may be documented in an alternate sectionGoals may be documented in an alternate sectionGoals may be documented in an alternate sectionGoals may be documented in an alternate sectionGoals may be documented in an alternate sectionGoals may be documented in an alternate sectionGoals may be documented in an alternate sectionGoals may be documented in an alternate sectionGoals may be documented in an alternate sectionGoals may be documented in an alternate sectionGoals may be documented in an alternate sectionGoals may be documented in an alternate section Source Comments (unrecognize d section and content) In the event this informatio n is protected by the Federal Confidentiality of Alcohol and Drug Abuse Patient Records regulations: The Federal rules restrict any use of the information to criminally investigate or prosecute any alcohol or drug abuse patient.[place]healthIn the event this information is protected by the Federal Confidentiality of Alcohol and Drug Abuse Patient Records regulations: The Federal rules restrict any use of the information to criminally investigate or prosecute any alcohol or drug abuse patient.[place]healthIn the event this information is protected by the Federal Confidentiality of Alcohol and Drug Abuse Patient Records regulations: The Federal rules restrict any use of the information to criminally investigate or prosecute any alcohol or drug abuse patient.[place]healthIn the event this information is protected by the Federal Confidentiality of Alcohol and Drug Abuse Patient Records regulations: The Federal rules restrict any use of the information to criminally investigate or prosecute any alcohol or drug abuse patient.[place]healthIn the event this information is protected by the Federal Confidentiality of Alcohol and Drug Abuse Patient Records regulations: The Federal rules restrict any use of the information to criminally investigate or prosecute any alcohol or drug abuse patient.[place]healthIn the event this information is protected by the Federal Confidentiality of Alcohol and Drug Abuse Patient Records regulations: The Federal rules restrict any use of the information to criminally investigate or prosecute any alcohol or drug abuse patient.[place]healthIn the event this information is protected by the Federal Confidentiality of Alcohol and Drug Abuse Patient Records regulations: The Federal rules restrict any use of the information to criminally investigate or prosecute any alcohol or drug abuse patient.[facility]healthIn the event this information is protected by the Federal Confidentiality of Alcohol and Drug Abuse Patient Records regulations: The Federal rules restrict any use of the information to criminally investigate or prosecute any alcohol or drug abuse patient.[place]healthIn the event this information is protected by the Federal Confidentiality of Alcohol and Drug Abuse Patient Records regulations: The Federal rules restrict any use of the information to criminally investigate or prosecute any alcohol or drug abuse patient.[place]healthIn the event this information is protected by the Federal Confidentiality of Alcohol and Drug Abuse Patient Records regulations: The Federal rules restrict any use of the information to criminally investigate or prosecute any alcohol or drug abuse patient.[place]healthIn the event this information is protected by the Federal Confidentiality of Alcohol and Drug Abuse Patient Records regulations: The Federal rules restrict any use of the information to criminally investigate or prosecute any alcohol or drug abuse patient.[place]healthIn the event this information is protected by the Federal Confidentiality of Alcohol and Drug Abuse Patient Records regulations: The Federal rules restrict any use of the information to criminally investigate or prosecute any alcohol or drug abuse patient.[place]healthIn the event this information is protected by the Federal Confidentiality of Alcohol and Drug Abuse Patient Records regulations: The Federal rules restrict any use of the information to criminally investigate or prosecute any alcohol or drug abuse patient.[place]healthIn the event this information is protected by the Federal Confidentiality of Alcohol and Drug Abuse Patient Records regulations: The Federal rules restrict any use of the information to criminally investigate or prosecute any alcohol or drug abuse patient.[place]healthIn the event this information is protected by the Federal Confidentiality of Alcohol and Drug Abuse Patient Records regulations: The Federal rules restrict any use of the information to criminally investigate or prosecute any alcohol or drug abuse patient.[facility]healthIn the event this information is protected by the Federal Confidentiality of Alcohol and Drug Abuse Patient Records regulations: The Federal rules restrict any use of the information to criminally investigate or prosecute any alcohol or drug abuse patient.[facility]healthIn the event this information is protected by the Federal Confidentiality of Alcohol and Drug Abuse Patient Records regulations: The Federal rules restrict any use of the information to criminally investigate or prosecute any alcohol or drug abuse patient.[facility]healthIn the event this information is protected by the Federal Confidentiality of Alcohol and Drug Abuse Patient Records regulations: The Federal rules restrict any use of the information to criminally investigate or prosecute any alcohol or drug abuse patient.[place]healthIn the event this information is protected by the Federal Confidentiality of Alcohol and Drug Abuse Patient Records regulations: The Federal rules restrict any use of the information to criminally investigate or prosecute any alcohol or drug abuse patient.[facility]healthIn the event this information is protected by the Federal Confidentiality of Alcohol and Drug Abuse Patient Records regulations: The Federal rules restrict any use of the information to criminally investigate or prosecute any alcohol or drug abuse patient.[facility]healthIn the event this information is protected by the Federal Confidentiality of Alcohol and Drug Abuse Patient Records regulations: The Federal rules restrict any use of the information to criminally investigate or prosecute any alcohol or drug abuse patient.[place]healthIn the event this information is protected by the Federal Confidentiality of Alcohol and Drug Abuse Patient Records regulations: The Federal rules restrict any use of the information to criminally investigate or prosecute any alcohol or drug abuse patient.[facility]healthIn the event this information is protected by the Federal Confidentiality of Alcohol and Drug Abuse Patient Records regulations: The Federal rules restrict any use of the information to criminally investigate or prosecute any alcohol or drug abuse patient.[facility]healthIn the event this information is protected by the Federal Confidentiality of Alcohol and Drug Abuse Patient Records regulations: The Federal rules restrict any use of the information to criminally investigate or prosecute any alcohol or drug abuse patient.[facility]healthIn the event this information is protected by the Federal Confidentiality of Alcohol and Drug Abuse Patient Records regulations: The Federal rules restrict any use of the information to criminally investigate or prosecute any alcohol or drug abuse patient.[facility]healthIn the event this information is protected by the Federal Confidentiality of Alcohol and Drug Abuse Patient Records regulations: The Federal rules restrict any use of the information to criminally investigate or prosecute any alcohol or drug abuse patient.[facility]healthIn the event this information is protected by the Federal Confidentiality of Alcohol and Drug Abuse Patient Records regulations: The Federal rules restrict any use of the information to criminally investigate or prosecute any alcohol or drug abuse patient.[facility]healthIn the event this information is protected by the Federal Confidentiality of Alcohol and Drug Abuse Patient Records regulations: The Federal rules restrict any use of the information to criminally investigate or prosecute any alcohol or drug abuse patient.[facility]healthIn the event this information is protected by the Federal Confidentiality of Alcohol and Drug Abuse Patient Records regulations: The Federal rules restrict any use of the information to criminally investigate or prosecute any alcohol or drug abuse patient.[facility]healthIn the event this information is protected by the Federal Confidentiality of Alcohol and Drug Abuse Patient Records regulations: The Federal rules restrict any use of the information to criminally investigate or prosecute any alcohol or drug abuse patient.[facility]healthIn the event this information is protected by the Federal Confidentiality of Alcohol and Drug Abuse Patient Records regulations: The Federal rules restrict any use of the information to criminally investigate or prosecute any alcohol or drug abuse patient.[facility]healthIn the event this information is protected by the Federal Confidentiality of Alcohol and Drug Abuse Patient Records regulations: The Federal rules restrict any use of the information to criminally investigate or prosecute any alcohol or drug abuse patient.[facility]healthIn the event this information is protected by the Federal Confidentiality of Alcohol and Drug Abuse Patient Records regulations: The Federal rules restrict any use of the information to criminally investigate or prosecute any alcohol or drug abuse patient.[facility]healthIn the event this information is protected by the Federal Confidentiality of Alcohol and Drug Abuse Patient Records regulations: The Federal rules restrict any use of the information to criminally investigate or prosecute any alcohol or drug abuse patient.[facility] Reason for Visit (unrecogniz ed section and content) Reason Comments Established Patient Specialty Diagnoses / Procedures Referred By Contac t Referred To Contact Neurosurgery / NEUROSURGERY Diagnoses Follow-up exam follow up per pcp Procedures OFFICE/OUTPATIENT ESTABLISHED MOD MDM 30-39 MIN EST PATIENT Self Jean Rodríguez MD [address] [place] [address] Referral ID Status Reason Start Date Expiration Date Visits Re quested Visits Authorized [id number] Closed 07/21/2022 12/25/2022 1 1 Specialty Diagnoses / Procedures Referred By Contac t Referred To Contact MR IMAGING Diagnoses Family history of ischemic heart disease and other diseases of the circulatory system Procedures MRA BRAIN WO IVCON MRA, HEAD W/O CONTRAST Lynn Murdock APRN.[employer] [address] [place] [address] Mr Imaging Referral ID Status Reason Start Date Expiration Date V isits Requested Visits Authorized [id number] Closed Auto-Generate d Referral 03/05/2022 04/04/2023 1 1 Reason Comments Future Appointment Reason Comments Results Reason Comments Patient Update Reason Comments INFORMATION SYSTEMS SECURITY SPECIALIST Ultrasound Reason Comments Schedule Surgery Reason Comments Consult Specialty Diagnoses / Procedures Referred By Contac t Referred To Contact CT IMAGING Diagnoses Other hydrocephalus (HCC) Procedures CT BRAIN WO IVCON CT HEAD/BRAIN W/O CONTRAST MATERIAL Chacha Stein PALesleyC [address] [place] [address] Ct Imaging Referral ID Status Reason Start Date Expiration Date V isits Requested Visits Authorized [id number] Closed Auto-Generate d Referral 10/21/2022 04/28/2023 1 1 Reason Comments Post Op Reason Comments Returning Patient's Call Reason Comments Appointment Specialty Diagnoses / Procedures Referred By Contac t Referred To Contact Neurosurgery / NEUROSURGERY Diagnoses [address] today Procedures OFFICE/OUTPATIENT ESTABLISHED MOD MDM 30-39 MIN EST PATIENT Mitchel Lilo Farias [address] [address] Jean Rodríguez MD [address] [facility] [address] Referral ID Status Reason Start Date Expiration Date Visits Re quested Visits Authorized [id number] Closed 07/21/2022 07/20/2023 1 1 Specialty Diagnoses / Procedures Referred By Contac t Referred To Contact CT IMAGING Diagnoses NPH (normal pressure hydrocephalus) (HCC) S/P ventriculoperitoneal shunt Procedures CT BRAIN WO IVCON CT HEAD/BRAIN W/O CONTRAST MATERIAL Lynn Murdock, PLUMBER GASFITTER.[employer] [address] [facility] [place] [address] Ct Imaging Referral ID Status Reason Start Date Expiration Date V isits Requested Visits Authorized [id number] Closed Auto-Generate d Referral 11/13/2022 12/13/2023 1 1 Specialty Diagnoses / Procedures Referred By Contac t Referred To Contact Neurosurgery / NEUROSURGERY Diagnoses 1 month f/u with CT Procedures OFFICE/OUTPATIENT ESTABLISHED MOD MDM 30-39 MIN EST PATIENT Lilo Grullon [address] [place] [address] Jean Rodríguez MD [address] [facility] [place] [address] Referral ID Status Reason Start Date Expiration Date Visits Re quested Visits Authorized [id number] Closed 07/21/2022 07/20/2023 1 1 Specialty Diagnoses / Procedures Referred By Contac t Referred To Contact CT IMAGING Diagnoses S/P ventriculoperitoneal shunt NPH (normal pressure hydrocephalus) (HCC) Procedures CT BRAIN WO IVCON CT HEAD/BRAIN W/O CONTRAST MATERIAL Jean Rodríguez MD [address] [facility] [address] Ct Imaging Referral ID Status Reason Start Date Expiration Date V isits Requested Visits Authorized [id number] Closed Auto-Generate d Referral 10/30/2022 11/29/2023 1 1 Reason Comments Radio Gen RMP Specialty Diagnoses / Procedures Referred By Contac t Referred To Contact XR IMAGING Diagnoses Primary osteoarthritis of both hands Procedures XR HAND GENERAL 3V PA/LAT/OBL BILAT X-RAY HAND MINIMUM [place] [address] [place] [address] [place] [address] Referral ID Status Reason Start Date Expiration Date V isits Requested Visits Authorized [id number] Closed Auto-Generate d Referral 05/18/2021 06/17/2022 1 1 Care Teams (unrecognized sec tion and content) Employee Benefits Administrator Relationship Specialty Start Date End Date Lilo Grullon PCP - General Family Practice 12/28/15 Employee Benefits Administrator Relationship Specialty Start Date End Date Lilo Grullon PCP - General Family Medicine 12/28/15 Employee Benefits Administrator Relationship Specialty Start Date End Date Lilo Grullon PCP - General Family Medicine 12/28/15 Employee Benefits Administrator Relationship Specialty Start Date End Date Lilo Grullon PCP - General Family Medicine 12/28/15 Employee Benefits Administrator Relationship Specialty Start Date End Date Lilo Grullon PCP - General Family Medicine 12/28/15 Employee Benefits Administrator Relationship Specialty Start Date End Date Lilo Grullon PCP - General Family Medicine 12/28/15 Employee Benefits Administrator Relationship Specialty Start Date End Date Lilo Grullon PCP - General Family Medicine 12/28/15 Team Status: Active Member Role Status Dates Dr. Lilo Grullon MD Family Provider Active Dr. Lilo Grullon MD Primary Care Provider Active Team Status: Inactive Member Role Status Dates Dr. Lilo Grullon MD Primary Care Provider, Referrin g Provider Active Dr. Godwin Alvarez DO Attending Provider Active Team Status: Inactive Member Role Status Dates Dr. Lilo Grullon MD Primary Care Provider, Referrin g Provider Active Dr. Silver Ruggiero MD Attending Provider Active Team Status: Inactive Member Role Status Dates Dr. Lilo Grullon MD Primary Care Provider, Referrin g Provider Active Dr. Radha Singh MD Attending Provider Active Team Status: Inactive Member Role Status Dates Dr. Lilo Grullon MD Primary Care Provider Active Dr. Silver Ruggiero MD Attending Provider Active Team Status: Active Member Role Status Dates Dr. Lilo Grullon MD Primary Care Provider Active Dr. Silver Ruggiero MD Attending Provider, Referring Provider Active Team Status: Inactive Member Role Status Dates Dr. Lilo Grullon MD Primary Care Provider Active Dr. Augustine Morris MD Attending Provider, Referring Pr ovider Active Team Status: Inactive Member Role Status Dates Dr. Lilo Grullon MD Primary Care Provider Active Dr. Silver Ruggiero MD Attending Provider, Referring Provider Active Employee Benefits Administrator Relationship Specialty Start Date End Date Lilo Grullon PCP - General Family Medicine 12/28/15 Employee Benefits Administrator Relationship Specialty Start Date End Date Lilo Grullon PCP - General Family Medicine 12/28/15 Employee Benefits Administrator Relationship Specialty Start Date End Date Lilo Grullon PCP - General Family Medicine 12/28/15 Employee Benefits Administrator Relationship Specialty Start Date End Date Lilo Grullon PCP - General Family Medicine 12/28/15 Employee Benefits Administrator Relationship Specialty Start Date End Date Lilo Grullon PCP - General Family Medicine 12/28/15 Employee Benefits Administrator Relationship Specialty Start Date End Date Lilo Grullon PCP - General Family Medicine 12/28/15 Employee Benefits Administrator Relationship Specialty Start Date End Date Lilo Grullon PCP - General Family Medicine 12/28/15 Employee Benefits Administrator Relationship Specialty Start Date End Date Lilo Grullon PCP - General Family Medicine 12/28/15 Employee Benefits Administrator Relationship Specialty Start Date End Date Lilo Grulloner PCP - General Family Medicine 12/28/15 Team Status: Inactive Member Role Status Dates Dr. Lilo Grullon MD Primary Care Provider Active Dr. Radha Singh MD Attending Provider, Referring Provider Active Team Status: Active Member Role Status Dates Dr. Lilo Grullon MD Primary Care Provider Active Dr. Radha Singh MD Attending Provi len, Referring Provider, Other Provider Active Employee Benefits Administrator Relationship Specialty Start Date End Date Lilo Grullon PCP - General Family Medicine 12/28/15 Employee Benefits Administrator Relationship Specialty Start Date End Date KhushbooLilo hamilton PCP - General Family Medicine 12/28/15 Employee Benefits Administrator Relationship Specialty Start Date End Date Lilo Grullon PCP - General Family Medicine 12/28/15 Employee Benefits Administrator Relationship Specialty Start Date End Date Lilo Grullon PCP - General Family Medicine 12/28/15 Employee Benefits Administrator Relationship Specialty Start Date End Date Lilo Grullon PCP - General Family Medicine 12/28/15 Team Status: Inactive Member Role Status Dates Dr. Lilo Grullon MD Primary Care Provider, Alison cunningham Provider Active Employee Benefits Administrator Relationship Specialty Start Date End Date Lilo Grullon PCP - General Family Medicine 12/28/15 Employee Benefits Administrator Relationship Specialty Start Date End Date Lilo Grullon PCP - General Family Medicine 12/28/15 Employee Benefits Administrator Relationship Specialty Start Date End Date Lilo Grullon PCP - General Family Medicine 12/28/15 Employee Benefits Administrator Relationship Specialty Start Date End Date Lilo Grullon PCP - General Family Medicine 12/28/15 Employee Benefits Administrator Relationship Specialty Start Date End Date Lilo Grullon PCP - General Family Medicine 12/28/15 Employee Benefits Administrator Relationship Specialty Start Date End Date Lilo Grullon PCP - General Family Medicine 12/28/15 Team Status: Active Member Role/Relationship Status Dates Dr. Lilo Grullon MD Family Provider Active Renan Fishman MD Primary Care Provider Active Team Status: Inactive Member Role/Relationship Status Dates Dr. Lilo Grullon MD Primary Care Provider Active Start: January 18, 2025 Dr. Lourdes Dave MD Attending Provider Active Start: January 18, 2025 Team Status: Inactive Member Role/Relationship Status Dates Renan Fishman MD Primary Care Provider Active St art: March 14, 2025 End: March 14, 2025 Renan Fishman MD Attending Provider Active Start : March 14, 2025 End: March 14, 2025 Renan Fishman MD Referring Provider Active Start : March 14, 2025 End: March 14, 2025 INFORMATION SOURCE (unrecogn ized section and content) DATE CREATED AUTHOR 06/29/2022 [facility] DATE CREATED AUTHOR AUTHOR'S ORGANIZ ATION 09/10/2022 [facility] DATE CREATED AUTHOR AUTHOR'S ORGANIZ ATION 12/28/2022 [facility] DATE CREATED AUTHOR AUTHOR'S ORGANIZ ATION 12/16/2024 [facility] DATE CREATED AUTHOR AUTHOR'S ORGANIZ ATION 04/10/2025 [facility] FOR RECORDS PERTAINING TO PATIENTS WHO ARE OR HAVE BEEN ENROLLED IN A CHEMICAL DEPENDENCY/SUBSTANCEABUSE PROGRAM, SOME INFORMATION MAY BE OMITTED. This clinical summary was aggregated from multiple sources. Caution should be exercised in using it in the provision of clinical care. This summary normalizes information from multiple sources, and as a consequence, information in this document may materially change the coding, format and clinical context of patient data. In addition, data may be omitted in some cases. CLINICAL DECISIONS SHOULD BE BASED ON THE PRIMARY CLINICAL RECORDS. [employer] [facility]. provides no warranty or guarantee of the accuracy or completeness of information in this document.
== END | disposition home or self-care (01) ==
PROVIDERS: PCP Family Medicine; Referring Provider Family Medicine; Visit Provider Family Medicine
DX: R07.9 Chest pain, unspecified (principal); R53.83 Other fatigue
CPT/HCPCS: 93005

== ENCOUNTER → 2025-04-28 | Outpatient (CLI) | payer MEDICARE, SELFPAY ==
--- NOTE | 2025-04-28 13:12 | ECHOCS_ITS ---
Reason For Study Reason For Study: CHEST PAIN Procedure This was a 2D Doppler, Color Flow transthoracic echocardiogram. The study was technically difficult. Contrast injection was performed. Exam performed in department. Left Ventricle Normal LV size. Mild concentric left ventricular hypertrophy. The left ventricular ejection fraction is 65 %. Stage 1 diastolic dysfunction. Right Ventricle Normal right ventricle. Atria The left and right atria are normal. Mitral Valve The mitral valve is structurally normal. No prolapse or stenosis seen. Tricuspid Valve Normal tricuspid valve. Unable to estimate RV systolic pressure due to inadequate jet, pulmonary artery pressure probably normal. Aortic Valve Trisinus/trileaflet aortic valve. Pulmonic Valve Trivial pulmonic valve insufficiency. Great Vessels Mildly calcified aortic root. Pericardium/Pleural No pericardial effusion. Medication 22 gauge I.V. with prn adaptor inserted into right arm. Diluted definity 1ml given slow IV push to enhance endocardial definition. MMode/2D Measurements & Calculations LVIDd: 4.2 cm IVSd: 1.4 cm LVOT diam: 2.0 cm LVIDs: 2.4 cm LVPWd: 1.3 cm FS: 41.5 % LVOT area: 3.3 cm2 Ao root diam: 3.3 cm LAV(MOD-sp4): 24.2 ml LVAd ap4: 31.2 cm2 LVLd ap4: 7.9 cm EDV(MOD-sp4): 104.2 ml EDV(sp4-el): 104.5 ml LVAs ap4: 17.0 cm2 LVLs ap4: 6.5 cm ESV(MOD-sp4): 35.8 ml ESV(sp4-el): 37.5 ml EF(MOD-sp4): 65.6 % EF(sp4-el): 64.1 % SV(MOD-sp4): 68.4 ml SV(sp4-el): 67.0 ml LA A4 area: 12.3 cm2 SI(MOD-sp4): 37.9 ml/m2 LA dimension(2D): 2.8 cm RA A4 area: 8.7 cm2 Time Measurements MV dec time: 0.29 sec Doppler Measurements & Calculations MV E max mike: 48.9 cm/sec Lat Peak E' Mike: 7.2 cm/sec Med Peak E' Mike: 9.0 cm/sec MV A max mike: 82.0 cm/sec E/E' lat: 6.8 E/E' med: 5.4 MV E/A: 0.60 MV V2 max: 104.3 cm/sec MV dec slope: 179.4 cm/sec2 Ao V2 max: 85.6 cm/sec MV max P.4 mmHg Ao max P.9 mmHg MV V2 mean: 47.7 cm/sec Ao V2 mean: 66.4 cm/sec MV mean P.2 mmHg Ao mean P.9 mmHg MV V2 VTI: 26.7 cm Ao V2 VTI: 21.5 cm MVA(VTI): 1.9 cm2 AV (velocity ratio): 0.72 ALEKS(I,D): 2.4 cm2 ALEKS(V,D): 2.6 cm2 LV V1 max: 67.7 cm/sec SV(LVOT): 51.0 ml PA V2 max: 73.2 cm/sec LV V1 max P.8 mmHg PA V2 mean: 52.7 cm/sec LV V1 mean P.96 mmHg LV V1 mean: 46.3 cm/sec LV V1 VTI: 15.5 cm ECHO/Echo Complete W/ Contrast Interpretation Summary Mild concentric left ventricular hypertrophy. The left ventricular ejection fraction is 65 %. Stage 1 diastolic dysfunction. Mildly calcified aortic root. Ordering Physician: Renan Fishman Referring Physician: Renan Fishman Performed By: Shilpi Buckner RCS
== END | disposition home or self-care (01) ==
LOC: CVS 13:07
PROVIDERS: PCP Family Medicine; Referring Provider Family Medicine; Visit Provider Family Medicine
DX: R07.9 Chest pain, unspecified (principal); R53.83 Other fatigue
CPT/HCPCS: 93306; Q9957; A4216; C8929

== ENCOUNTER 2025-06-27 19:38 | Inpatient (IN) | payer MEDICARE, SELFPAY ==
--- OUTSIDE RECORDS SUMMARY | 2025-06-27 19:47 | XMS RPT_ITS | CCD ---
Author Organization [facility] Care Team Providers Care Slab Stripper Name Role Phone Dr. Lilo Grullon Primary [...] Unavailable SILVER RUGGIERO Referring Unavaila ble FABY SANTANA Referring Unavailable JOLLIFF, LILO LEAH Primary Care [...] Primary Care Unavailable ONEL SETHI Attending Unavailable KHAYYAT, JEAN Valencia Attending Unavailable JOLLIFF, LILO LEAH Primary Care Unavailable KHAYYAT, JEAN F Attending Unavailable JOLLIFF, LILO LEAH Primary Care Unavailable JOLLIFF, LILO LEAH Primary Care Unavailable TOR AGUILAR Attending Unavailable JOLLIFF, LILO LEAH Primary Care Unavailable MATEO HUMMEL Attending Unavailable JOLLIFF, LILO LEAH Primary Care Unavailable REHAN MORALES Attending Unava ilable Mitchel AGUERO, Dr. Lilo Waggoner Primary Care Provider Dr. Lourdes Dave MD Attending Provider Kye AGUERO, Renan Primary Care Provider [phone] Kye AGUERO, Renan Attending Provider Kye AGUERO, Renan Referring Provider [phone] Dr. Lilo Grullon MD Primary Care Physician Tenzin AGUERO, Dr. Freed Attending Physician Kye AGUERO, Renan Primary Care Physician Kye AGUERO, Renan Attending Physician [phone] Dejan AGUERO, Dr. Alberto Attending Physician Godwin Alvarez Attending Unavailable Jolliff, Lilo S Primary Care Unavailable Jolliff, Lilo S Referring Unavailable Kye, Chalon Primary Care Unavailable Kye, Chalon Attending Unavailable Kye, Chalon Referring Unavailable Kye, Chalon Primary Care Unavailable Kye, Chalon Attending Unavailable Kye, Chalon Referring Unavailable Kye, Chalon Primary Care Unavailable Kye, Chalon Attending Unavailable Kye, Chalon Referring Unavailable David, Tucker Attending Unavailable Kye, Chalon Primary Care Unavailable Godwin Alvarez Attending Unavailable Jolliff, Lilo S Primary Care Unavailable Jolliff, Lilo S Referring Unavailable Allergies Allergy Classification Reported Allergen(s) Allergy Type Date of Onset Reaction(s) Facility (20 sources) HYDROcodone; Translations: [HYDROCODONE BITARTRATE] Drug Allergy 09-17-19 19 GI Upset [facility] Comment on above: loopy (20 sources) mesalamine; Translations: [MESALAMINE] Drug Allergy 09-25-19 22 Myalgia [facility] (16 sources) metroNIDAZOLE; Translations: [Metronidazole HCl] Drug Allergy 05-23-20 21 Other [facility] (16 sources) oxyCODONE; Translations: [oxycodone HCl] Drug Allergy 05-23-20 21 Nausea, Other [facility] Comment on above: loopy (20 sources) Scopolamine; Translations: [SCOPOLAMINE] Drug Allergy 09-17-19 19 Other: See Comments [facility] Comment on above: halluncinations (20 sources) oxyCODONE; Translations: [OXYCODONE] Drug Allergy 09-17-19 19 GI Upset [facility] (20 sources) Nitroimidazoles; Translations: [NITROIMIDAZOLES] Drug Intolerance 01-15-20 16 Other: See Comments [facility] (5 sources) Nitroimidazoles Drug Intolerance 01-15-20 16 Other: See Comments [facility] (1 source) mesalamine Drug Allergy 09-04-19 24 [facility] Repository (1 source) Scopolamine Drug Allergy 09-04-19 24 [facility] Repository Medications Current Medications Medication Drug Class(es) [...] 1 tablet by pat th once daily Start: 10-15-2018 End: 10-16-2018 take 1 tablet [...] 16, 2018 12:00am October 15, 2018 8:57am [facility] Start: 10-26-2014 End: 11-01-2014 take 1 tablet [...] daily. 08/21/2022 Discontinued take 1 capsule by mo [facility] once daily aspirin 81 mg cap Take 1 capsule by mouth once daily. 0 Active Comment on above: Take 81 mg by mouth once daily. Take by mouth. Take 1 capsule by mo [facility] once daily. Take 1 tablet by pat once daily. Take 1 tablet by pat th once daily. To begin on 11/04/22 biotin 1 mg oral capsule (20 sources) Start: 05-23-2021 take 1 capsule by mouth once daily Comment on above: Take 1 capsule by mo [facility] once daily. budesonide 3 mg delayed release oral capsule (20 sources) Corticosteroid Start: 02-11-2022 End: 03-28-2025 take 2 capsules by mouth once daily Start: 02-11-2022 End: 10-30-2023 take 2 capsules [...] mg PO DAILY November 01, 2021 8:03am February 11, 2022 12:10pm Start: 11-01-2021 End: 02-11-2022 take [...] tablet (9 sources) Vitamin D Start: 10-14-19 15 take 1000 mg by mouth twice daily [...] Comment on above: Take 1 capsule by [facility] once daily. Disability Placard (7 sources) Start: 07-10-2022 Disability Placard Active 0 .Route .MEDSUPPLY 1 0 July [...] take 1 capsule by mouth once daily Comment on above: Take 1 capsule by [facility] daily at bedtime. Pezynhec-Hwns-Yva2 -C-Charly-Bosw (Osteo Bi-Flex Triple Strength) 750 mg-644 mg- 30 mg-1 mg Tablet (9 sources) Start: 05-23-2021 take 2 tablets by mouth once daily Etkoivkv-Gmtq-Y pc6-H-Kliq-Bosw (Osteo Bi-Flex Triple Strength) 750 mg-644 mg- 30 mg-1 mg Tablet Active 2 TABLET PO DAILY May 23, 2021 12:34pm Start: 05-23-2021 take 2 tablets by mouth once daily Cjmzzxls-Rexs-Zkr6-C-Charly-Bosw (Osteo Bi -Flex Triple Strength) 750 mg-644 mg- 30 mg-1 mg Tablet Active 2 TABLET PO DAILY May 22, 2021 11:00pm Start: 05-23-2021 take 2 tablets by mouth once daily Ciqbjhnx-Ruvj-Tzl4-C-Charly-Bosw (Osteo Bi -Flex Triple Strength) 750 mg-644 mg- 30 mg-1 mg Tablet Active 2 TABLET PO DAILY May 23, 2021 12:00am levoFLOXacin 500 mg oral tablet (2 sources) Quinolone Antimicrobial Start: 07-01-2024 take 1 tablet by mouth once daily meclizine hydrochloride 25 mg oral tablet (2 sources) Antiemetic Start: 06-15-2024 End: 06-22-2024 take 1 tablet by mouth three times daily meclizine (ANTIVERT) 25 mg tab Take 1 tablet by mouth three times a day for 7 days. 21 tablet 06/15/2024 06/22/2024 Active melatonin 5 mg oral tablet (20 sources) Start: 05-23-2021 take 1 tablet by mouth at bedtime take 1 capsule by mo ut once daily at bedtime Melatonin 5 mg [...] Multivitamin With Folic Acid 1 TABLET tablet (2 sources) Start: 10-13-2014 take 1 tablet by pat th once daily Start: 10-13-2014 take 1 tablet by pat th once daily Multivitamin With Folic Acid 1 TABLET tablet Active 1 {tbl} PO DAILY October 13, 2014 12:00am supplement rosuvastatin calcium 5 mg oral tablet (20 sources) HMG-CoA Reductase Inhibitor Start: 11-01-2021 take 1 tablet by mouth once daily Comment on above: Take 1 tablet by pat th once daily. Stairlift (7 sources) Start: 07-10-2022 Stairlift Acti ve 0 .Route .MEDSUPPLY 1 0 July 10, 2022 12:06pm Stairlift needed for Tuula Suggs, Date of : 41, [place] Customer Number: [id number] Start: 07-10-2022 Stairlift Acti ve 0 .Route .MEDSUPPLY July 10, 2022 12:06pm Stairlift needed for Tuula Suggs, Date of : 41, [place] Customer Number: [id number] Start: 07-10-2022 Stairlift Acti ve 0 .Route .MEDSUPPLY July 10, 2022 11:06am Stairlift needed for Tuula Suggs, Date of : 41, [place] Customer Number: [phone] sulfamethoxazole 800 mg / trimethoprim 160 mg [...] % cream 03/07/2023 Active Vit A-Vit C-Vit S-Itro-Nczysw (3 sources) Start: 05-23-2021 take 2 tablets by mouth once daily Vit A-Vit C-Vit D-Oqhy-Lsocdi Active 2 TABLET PO DAILY May 23, 2021 12:00am Vit A-Vit C-Vit M-Obai-Mwstan (Eye Vitamin And Minerals) 7,160-113-100 pirk-zx-fjkz Tablet (10 sources) Start: 05-23-2021 take 2 tablets by mouth once daily Vit A-Vit C-Vit F-Ckta-Qtfqce (Eye Vitamin And Minerals) 7,160-113-100 floc-oe-irtb Tablet Active 2 TABLET PO DAILY May 23, 2021 12:30pm Start: 05-23-2021 take 2 tablets by mo ut once daily Vit A-Vit C-Vit W-Fkqv-Pniwcl (Eye Vitamin And Minerals) 7,160-113-100 flis-cz-ctnh Tablet Active 2 TABLET PO DAILY May 22, 2021 11:00pm Start: 05-23-2021 take 2 tablets by mo ut once daily Vit A-Vit C-Vit S-Xbaw-Itpyrv (Eye Vitamin And Minerals) 7,160-113-100 wbly-ba-vrmj Tablet Active 2 TABLET PO DAILY May [...] / diphenoxylate hydrochloride 2.5 mg oral tablet (16 sources) Anticholinergic, Cholinergic Muscarinic Antagonist, Antidiarrheal Start: [...] / vitamin k1 0.04 mg chewable tablet (20 sources) Vitamin D, Warfarin Reversal Agent, Vitamin K Start: 11-26-2022 End: 03-08-2024 Calcium-Vitamin D3-Vitamin K 500-100-40 mg-unit-mcg Tablet,Chewable Discontinued 1 {tbl} PO TWICE A DAY November 26, 2022 12:00am March 08, 2024 2:34pm SUPPLEMENT Start: 11-26-2022 take 1 tablet by pat twice daily Calcium-Vitamin D3-Vitamin K Active 1 [...] Therapy/Dosage Form) cholecalciferol 0.125 mg oral tablet (6 sources) Vitamin D Start: End: take 1 tablet by mouth once daily Cholecalciferol (Vitamin D3) (Vitamin D3) 125 mcg (5,000 unit) Tablet Discontinued 125 ug PO DAILY November 26, 2022 12:00am March 08, 2024 2:34pm SUPPLEMENT cholestyramine resin 4000 mg powder for oral suspension (20 sources) Bile Acid Sequestrant Start: End: take 1 dose by mouth once daily Cholestyramine (With Sugar) 4 gram powder Discontinued 4 g PO DAILY 348.6 0 July 08, 2024 5:35pm July 15, 2024 2:28pm administer w/meal; avoid [...] 4-6hr after dose Start: 03-11-2023 End: 01-30-2024 Cholestyramine-Aspartame (Cholestyramine Light) 4 gram powder in packet Discontinued 4 g PO DAILY 30 2 March 11, 2023 12:00am September 04, 2023 [...] within 1hr before or 4-6hr after dose Cholestyramine-Aspartame (Cholestyramine Light) 4 gram powder in packet (2 sources) Start: 03-11-2023 End: 09-04-2023 Cholestyramine-Aspartame (Cholestyramine Light) 4 gram powder in packet [...] dose desmopressin acetate 0.1 mg oral tablet (4 sources) Vasopressin Analog, Factor VIII Activator Start: 01-13-2023 End: 03-08-2024 take 1 tablet by mouth at bedtime Desmopressin (Ddavp) 0.1 mg tablet Discontinued 0.1 mg PO AT BEDTIME 30 January 13, 2023 12:00am March 08, 2024 2:35pm estradiol 0.1 mg/ml vaginal cream (11 sources) Estrogen Start: 11-19-2022 End: 03-08-2024 Estradiol [...] A WEEK. famotidine 20 mg oral tablet (15 sources) Histamine-2 Receptor Antagonist Start: 9 End: 9 take 1 tablet by mouth once daily Famotidine 20 MG tablet Discontinued 20 mg PO DAILY 0 October 15, 2018 12:00am November 13, 2018 12:00am October 16, 2018 4:44pm Take 1 tablet daily while taking aspirin and meloxicam for 4 weeks postoperatively Fiber (6 sources) Start: 3 End: 4 take 1 tablet by mouth twice daily Fiber Tablet Discontinued 1 {tbl} PO TWICE A DAY November 26, 2022 12:00am March 08, 2024 2:35pm SUPPLEMENT Start: 11-26-2022 take 1 tablet by pat th twice daily Fiber Active 1 TABLET PO TWICE A DAY November 26, 2022 12:00am pvqqrvwa-iser-ykx1-C-charly-susi sw (OSTEO BI-FLEX TRIPLE STRENGTH) 750 mg-644 mg- 30 mg-1 mg tab (4 sources) take 1 tablet by mouth once daily kjjvpjsr-xozc-syz9-C-charly-bosw (OSTEO BI-FLEX TRIPLE STRENGTH) 750 mg-644 mg- 30 mg-1 mg tab Take 1 tablet by mouth once daily. 0 Active Comment on above: Take 1 tablet by pat once daily. iv contrast (will be provide [...] mesalamine 1200 mg delayed release oral tablet (15 sources) Aminosalicylate Start: 08-01-19 End: 09-25-19 take [...] Comment on above: Take 1 capsule by [facility] once daily. naproxen sodium 220 mg oral tablet (1 source) Nonsteroidal Anti-inflammatory Drug Start: 06-07-2021 End: 06-07-2021 naproxen sodium (ALEVE) 220 mg ORAL tablet Take 220 mg by mouth as needed. 0 06/07/2021 06/07/2021 Discontinued (Course of therapy completed) omeprazole 40 mg delayed release oral capsule (20 sources) Proton Pump Inhibitor Start: 06-07-2021 End: 03-26-2022 omeprazole (PRILOSEC) 20 mg capsule Take 20 mg by mouth as needed. 0 06/07/2021 03/26/2022 Discontinued Start: 06-05-2021 End: 07-12-2024 take 1 capsule by mouth once daily Omeprazole 40 mg capsule,delayed release(DR/EC) Discontinued 40 mg PO DAILY 30 April 08, 2023 11:59am March 08, 2024 3:08pm GERD Comment on above: Take 40 mg by mouth once daily. Take 20 mg by mouth as needed. 72 hr scopolamine 0.0139 mg/hr transdermal system (15 sources) Anticholinergic Start: 10-26-2014 End: 11-01-2014 Scopolamine Base 1.5 MG patch Discontinued 1.5 mg TD Every 3 Days 7 0 October 26, 2014 12:00am November 01, 2014 9:36am Stair lift (7 sources) Start: 07-10-2022 End: 07-10-2022 Stair lift Discontinued 0 .Route .MEDSUPPLY 1 0 July 10, 2022 1:00am July 10, 2022 12:10pm : [address] [place] Customer Number: [phone] Start: 07-10-2022 End: 07-10-2022 Stair lift Discontinued 0 .R oute .MEDSUPPLY July 10, 2022 1:00am July 10, 2022 12:10pm : 41 [place] Customer Number: [phone] Start: 07-10-2022 End: 07-10-2022 Stair lift Discontinued 0 .R oute .MEDSUPPLY July 10, 2022 12:00am July 10, 2022 11:10am : 41 [place] Customer Number: [id number] tamsulosin hydrochloride 0.4 mg oral capsule (20 sources) alpha-Adrenergic Clarke Start: 07-19-2022 End: 09-21-2024 take 1 capsule by mouth at bedtime Tamsulosin 0.4 mg capsule Discontinued 0.4 mg PO AT BEDTIME 19 08April 10, 2024 2:44pm May 05, 2024 1:09pm Comment on above: Take 1 capsule by [facility] daily at bedtime. traMADol hydrochloride 50 mg [...] October 15, 2018 8:57am vit A-vit C-vit U-iihl-xwbyel 7,160-113-100 xgbg-kp-zyly tab (19 sources) End: 01-30-2024 take 2 tablets by mouth once daily vit A-vit C-vit L-fulx-ptkkkz 7,160-113-100 ichz-gc-sraw tab Take 2 tablets by mouth once daily. 0 01/30/2024 Discontinued take 2 tablets by mouth once fela ly vit A-vit C-vit G-nwis-ptwiqs 7,160-113-100 wfyc-sc-rrcx tab Take 2 tablets by mouth once daily. 0 Suspended take 2 tablets by mouth once fela ly vit A-vit C-vit W-lcgi-enjokf 7,160-113-100 eidw-an-pfdh tab Take 2 tablets by mouth once daily. 0 Active Comment on above: Take 2 tablets by mo uth once daily. Vit A-Vit C-Vit M-Tiyn-Dbwjaz 7,160-113-100 cmle-ki-blhg Tablet (2 sources) Start: 05-23-20 21 End: 03-08-20 24 Vit A-Vit C-Vit N-Vtey-Vhtbti 7,160-113-100 jzyx-qy-ovcr Tablet Discontinued 2 {tbl} PO DAILY May 23, 2021 12:00am March 08, 2024 2:37pm SUPPLEMENT vitamin b12 1 mg/ml injectable solution (1 source) Vitamin B12 Start: 11-02-19 22 End: 11-02-19 22 inject 1000 ug by intramuscular injection once cyanocobalamin (vitamin B-12) 1,000 mcg/mL injection solution Discontinued 1000 MCG IM ONCE 1 November 01, 2021 7:46am November 01, 2021 9:17am Problems Active Problems Problem Classification Problem Date Documented Date Episodic/Chronic Abdominal hernia (1 source) Diaphragmatic hernia without obstruction or gangrene; Translations: [Hiatal hernia] Onset: 11-27-19 25 Episodic Anxiety disorders (15 sources) Mixed anxiety and depressive disorder; Translations: [Anxiety disorder, unspecified] 06-09-2019 Chronic Benign neoplasm of uterus (1 source) Intramural leiomyoma of uterus; Translations: [Intramural leiomyoma of uterus] Episodic Biliary tract disease (13 sources) Biliary dyskinesia; Translations: [Other specified diseases of gallbladder] 06-20-2022 Episodic Disorders of lipid metabolism (20 sources) Hyperlipidemia; Translations: [Hyperlipidemia, unspecified] Onset: 08-28-19 Chronic E Codes: Place of occurrence (1 source) Unspecified place in unspecified non-institutional (private) residence as the place of occurrence of the external cause; Translations: [Fall at home, initial encounter] Onset: 06-27-20 Episodic Esophageal disorders (20 sources) Gastroesophageal reflux disease; Translations: [Gastro-esophageal reflux disease without esophagitis] Onset: 06-06-20 11 Chronic Genitourinary symptoms and ill-defined conditions (20 sources) Hematuria, unspecified; Translations: [Retention of urine, unspecified] Onset: 06-21-20 22 07-05-2022 Episodic Hemorrhoids (15 sources) Internal hemorrhoids; Translations: [Other hemorrhoids] 10-16-2018 Episodic Malaise and fatigue (15 sources) Asthenia; Translations: [Other malaise] 10-16-2018 Episodic Melanomas of skin (20 sources) Superficial spreading malignant melanoma of skin; Translations: [Malignant melanoma of skin, unspecified] Onset: 06-06-20 11 07-16-2021 Chronic Noninfectious gastroenteritis (20 sources) Eosinophilic gastroenteritis; 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] Onset: 02-07-20 16 Chronic Nonspecific chest pain (2 sources) Chest pain, unspecified; Translations: [Chest pain, unspecified type] Onset: 05-19-20 24 Episodic Osteoarthritis (16 sources) Osteoarthritis; Translations: [Unspecified osteoarthritis, unspecified site] 06-09-2019 Chronic Osteoporosis (20 sources) Osteoporosis; Translations: [Age-related osteoporosis without current pathological fracture] Onset: 06-06-20 11 06-06-2011 Chronic Other connective tissue disease (15 sources) History of total knee arthroplasty; Translations: [Presence of right artificial knee joint] 06-09-2019 Chronic Comment on above: Dr Mckeon 10/24/14 [facility] Other female genital disorders (1 source) Other specified conditions associated with female genital organs and menstrual cycle; Translations: [Endometrial mass] Onset: 06-27-20 Episodic Other female genital disorders (1 source) Polyp of corpus uteri; Translations: [Polyp of corpus uteri] Episodic Other female genital disorders (1 source) Polyp of corpus uteri; Translations: [Endometrial polyp] Onset: 09-05-19 Episodic Other fractures (15 sources) Compression fracture of lumbar spine; Translations: [Wedge compression fracture of unspecified lumbar vertebra, initial encounter for closed fracture] 06-09-2019 Episodic Other gastrointestinal disorders (8 sources) Alteration in bowel elimination; Translations: [Change in bowel habit] Episodic Other gastrointestinal disorders (7 sources) Altered bowel function; Translations: [Change in bowel habit] 06-09-2019 Episodic Other hematologic conditions (1 source) Other specified abnormalities of plasma proteins; Translations: [Elevated troponin] Onset: 06-27-20 Episodic Other hereditary and degenerative nervous system conditions (14 sources) Impaired cognition; Translations: [Mild cognitive impairment, so stated] 11-01-2021 Chronic Other hereditary and degenerative nervous system conditions (20 sources) Mild cognitive impairment, so stated; Translations: [Mild cognitive impairment, so stated] Chronic Other infections; including parasitic (14 sources) History of bacterial infection; Translations: [Personal history of other infectious and parasitic diseases] 05-22-2021 Episodic Other infections; including parasitic (1 source) Personal history of other infectious and parasitic diseases; Translations: [History of Clostridioides difficile infection] 05-22-2021 Episodic Other lower respiratory disease (1 source) Shortness of breath; Translations: [Shortness of breath] Onset: 03-26-20 Episodic Other nervous system disorders (15 sources) Sciatic neuropathy; Translations: [Lesion of sciatic [...] Onset: 11-14-1911-19-2022 Chronic Other nervous system disorders (14 sources) Abnormal gait; Translations: [Unspecified abnormalities of gait and mobility] 11-01-2021 Episodic Other nervous system disorders (20 sources) Unspecified abnormalities of gait and mobility; Translations: [Abnormality of gait] Episodic Other nutritional; endocrine; and metabolic disorders (15 sources) Obesity; Translations: [Obesity, unspecified] 03-13-2022 Chronic [...] Spondylosis; intervertebral disc disorders; other back problems (16 sources) Lumbar spondylosis with myelopathy; Translations: [Other spondylosis with myelopathy, lumbar region] Onset: 06-23-2010-16-2018 Chronic Spondylosis; intervertebral disc disorders; other back problems (20 sources) Chronic back pain ; Translations: [Dorsalgia, unspecified] Onset: 06-06-20 11 Resolved : 08-17-19 Episodic Thyroid disorders (20 sources) Thyroid nodule; Translations: [Nontoxic single thyroid nodule] Onset: 02-20-2002-19-2022 Chronic Unclassified (15 sources) History of Clostridium difficile; Translations: [History [...] Test Name Value Interpretation Reference Range Facility Echo Complete W/ Contraston 04-28-2025 Echo Complete W/ Contrast [facility] [address] [place] [address] Echo Complete W/ Contrast 04/28/25 1316 MR#: [id number] Acct: [id number] Name: CHRISTIAN SUGGS Rep #: [id number] : 1945 79 From: Tucker Hernandez MD Attending Dr: Dr. Renan Fishman MD Status: [facility] Ordering Dr: Renan Fishman MD Date: 04/28/25 Location: [facility] Sex: F C Admitted: Reason For Study Reason For Study: CHEST PAIN Procedure This was a 2D Doppler, Color Flow transthoracic echocardiogram. The study was technically difficult. Contrast injection was performed. Exam performed in department. Left Ventricle Normal LV size. Mild concentric left ventricular hypertrophy. The left ventricular ejection fraction is 65 %. Stage 1 diastolic dysfunction. Right Ventricle Normal right ventricle. Atria The left and right atria are normal. Mitral Valve The mitral valve is structurally normal. No prolapse or stenosis seen. Tricuspid Valve Normal tricuspid valve. Unable to estimate RV systolic pressure due to inadequate jet, pulmonary artery pressure probably normal. Aortic Valve Trisinus/trileaflet aortic valve. Pulmonic Valve Trivial pulmonic valve insufficiency. Great Vessels Mildly calcified aortic root. Pericardium/Pleural No pericardial effusion. Medication 22 gauge I.V. with prn adaptor inserted into right arm. Diluted definity 1ml given slow IV push to enhance endocardial definition. MMode/2D Measurements Calculations LVIDd: 4.2 cm IVSd: 1.4 cm LVOT diam: 2.0 cm LVIDs: 2.4 cm LVPWd: 1.3 cm FS: 41.5 % LVOT area: 3.3 cm2 Ao root diam: 3.3 cm LAV(MOD-sp4): 24.2 ml LVAd ap4: 31.2 cm2 LVLd ap4: 7.9 cm EDV(MOD-sp4): 104.2 ml EDV(sp4-el): 104.5 ml LVAs ap4: 17.0 cm2 LVLs ap4: 6.5 cm ESV(MOD-sp4): 35.8 ml ESV(sp4-el): 37.5 ml EF(MOD-sp4): 65.6 % EF(sp4-el): 64.1 % SV(MOD-sp4): 68.4 ml SV(sp4-el): 67.0 ml LA A4 area: 12.3 cm2 SI(MOD-sp4): 37.9 ml/m2 LA dimension(2D): 2.8 cm RA A4 area: 8.7 cm2 Time Measurements MV dec time: 0.29 sec Doppler Measurements Calculations MV E max yohana: 48.9 cm/sec Lat Peak E' Yohana: 7.2 cm/sec Med Peak E' Yohana: 9.0 cm/sec MV A max yohana: 82.0 cm/sec E/E' lat: 6.8 E/E' med: 5.4 MV E/A: 0.60 MV V2 max: 104.3 cm/sec MV dec slope: 179.4 cm/sec2 Ao V2 max: 85.6 cm/sec MV max P.4 mmHg Ao max P.9 mmHg MV V2 mean: 47.7 cm/sec Ao V2 mean: 66.4 cm/sec MV mean P.2 mmHg Ao mean P.9 mmHg MV V2 VTI: 26.7 cm Ao V2 VTI: 21.5 cm MVA(VTI): 1.9 cm2 AV (velocity ratio): 0.72 ALEKS(I,D): 2.4 cm2 ALEKS(V,D): 2.6 cm2 LV V1 max: 67.7 cm/sec SV(LVOT): 51.0 ml PA V2 max: 73.2 cm/sec LV V1 max P.8 mmHg PA V2 mean: 52.7 cm/sec LV V1 mean P.96 mmHg LV V1 mean: 46.3 cm/sec LV V1 VTI: 15.5 cm ECHO/Echo Complete W/ Contrast Interpretation Summary Mild concentric left ventricular hypertrophy. The left ventricular ejection fraction is 65 %. Stage 1 diastolic dysfunction. Mildly calcified aortic root. Ordering Physician: Renan Fishman Referring Physician: Renan Fishman Performed By: Shilpi Buckner RCS 04/29/25 1044 Date Tucker Hernandez MD CC: Dr. Renan Fishman MD Date Dictated: 04/28/25 1316 Date Transcribed: 04/29/25 104 Pbx Repairer: Signed Normal [facility] 12 Lead EKGon 04-11-2025 12 Lead EKG [facility] [address] [place] [address] 12 Lead EKG 04/11/25 0737 MR#: [id number] Acct: [id number] Name: CHRISTIAN SUGGS Rep #: [id number] : 1945 79 From: Remy Wylie MD Attending Dr: Dr. Renan Fishman MD Status: [facility] Sarah Ordering Dr: Renan Fishman MD Date: 04/11/25 Location: [facility] Sex: F C Admitted: Test Reason : CP Blood Pressure : */* mmHG Vent. Rate : 69 BPM Atrial Rate : 69 BPM P-R Int : 160 ms QRS Dur : 78 ms QT Int : 412 ms P-R-T Axes : 54 18 39 degrees QTcB Int : 441 ms Normal sinus rhythm Normal ECG When compared with ECG of 28-Nov-2022 10:38, No significant change was found Confirmed by REMY WYLIE MD ([id number]), movie editor LUIS JAMA ([id number]) on 04/11/2025 10:34:21 AM Referred By: Renan Fishman Confirmed By: REMY WYLIE MD 04/11/25 1034 Date Remy Wylie MD CC: Dr. Renan Fishman MD Signed [facility] Electrocardiogram reportOrde red By: Remy Wylie on 04-11-2025 [facility] [facility] [address] [place] [address] 12 Lead EKG 04/11/25 0737 MR#: [id number] Acct: [id number] Name: CHRISTIAN SUGGS Rep #:[id number] 124 : 1945 79 From: Remy Wylie MD Attending Dr: Dr. Renan Fishman MD S tatus: REG CLI Ordering Dr: Renan Fishman MD Date: Location: [facility] Sex: F C Admitted: Test Reason : CP Blood Pressure : */* mmHG Vent. Rate : 69 BPM Atrial Rate : 69 BPM P-R Int : 160 ms QRS Dur : 78 ms QT Int : 412 ms P-R-T Axes : 54 18 39 degrees QTcB Int : 441 ms Normal sinus rhythm Normal ECG When compared with ECG of 28-Nov-2022 10:38, No significant change was found Confirmed by DEJAN AGUERO, REMY ([id number]), movie editor LUIS JAMA ([id number]) on 04/11/2025 10:34:21 AM Referred By: Renan Fishman Confirmed By: REMY WYLIE MD 04/11/25 1034 Date _ Remy Wylie MD CC: Dr. Renan Fishman MD ~ Signed [facility] Work Phone: Thyroid Stim Immunoglobon THY STIM IMMUNO <0.10 Normal 0.00-0.55 [facility] Comment on above: Order Comment: Order Date: 03/14/25Order Info: [id number] - TSIMM Result Comment: Perf ormed at: - [facility] [id number] Electrical Maintenance Technician: Lucio Khan MD, Phone: [phone] Performed By: #### L 500.8020, L506.0400, L3400.4700, L500.4100, L501.9220, L501.61260, L100.0500 ####[facility] [address] [place], [place], [address] Anion gap in Serum or Plasma Ordered By: Renan Fishman on 03-14-2025 Anion gap [Moles/Vol] 13 mmol/L 5-15 [facility] BUN/creatinine ratioOrdered By: Renan Fishman on 03-14-2025 Urea nitrogen/Creatinine [Mass ratio] 15.0 mg/mg 10-20 [facility] Bilirubin, totalOrdered By: Renan Fishman on 03-14-2025 Bilirubin [Mass/Vol] 0.19 mg/dL 0.00-1.30 [facility] CBC-Complete Blood Cnt No Di ffon 03-14-2025 Erythrocyte distribution width (RBC) [Ratio] 15.4 % High 11.6-14.6 [facility] Comment on above: Order Comment: Order Date: 03/14/25 Order Info: [id number] - CBC Performed By: #### L 500.4050, L506.0400, L3400.4700, L500.4100, L501.9520, L501.69384, L100.0500 #### [facility] Laboratory [address] [place], [place], [id number] Hematocrit (Bld) [Volume fraction] 41.0 % Normal 37-47 [facility] Comment on above: Order Comment: Order Date: 03/14/25 Order Info: [id number] - CBC Performed By: #### L 500.4050, L506.0400, L3400.4700, L500.4100, L501.9520, L501.85890, L100.0500 #### [facility] Laboratory [address] [place], [place], [id number] Hemoglobin (Bld) [Mass/Vol] 13.4 g/dL Normal 12.0-15.0 [facility] Comment on above: Order Comment: Order Date: 03/14/25 Order Info: [id number] - CBC Performed By: #### L 500.4050, L506.0400, L3400.4700, L500.4100, L501.9520, L501.56768, L100.0500 #### [facility] Laboratory [address] [place], [address] MCH (RBC) [Entitic mass] 28.8 pg Normal 27.0-32.0 [facility] Comment on above: Order Comment: Order Date: 03/14/25 Order Info: [id number] - CBC Performed By: #### L 500.4050, L506.0400, L3400.4700, L500.4100, L501.9520, L501.51063, L100.0500 #### [facility] Laboratory [address] [place], [address] MCHC (RBC) [Mass/Vol] 32.7 g/dL Normal 32-36 [facility] Comment on above: Order Comment: Order Date: 03/14/25 Order Info: [id number] - CBC Performed By: #### L 500.4050, L506.0400, L3400.4700, L500.4100, L501.9520, L501.52812, L100.0500 #### [facility] Laboratory [address] [place], [address] MCV (RBC) [Entitic vol] 88.2 fL Normal 81-99 [facility] Comment on above: Order Comment: Order Date: 03/14/25 Order Info: [id number] - CBC Performed By: #### L 500.4050, L506.0400, L3400.4700, L500.4100, L501.9520, L501.19018, L100.0500 #### [facility] Laboratory [address] [place], [address] Platelet mean volume (Bld) [Entitic vol] 10.4 fL Normal 6.2-12.0 [facility] Comment on above: Order Comment: Order Date: 03/14/25 Order Info: [id number] - CBC Performed By: #### L 500.4050, L506.0400, L3400.4700, L500.4100, L501.9520, L501.93096, L100.0500 #### [facility] Laboratory [address] [place], [address] Platelets (Bld) [#/Vol] 204 10*3/uL Normal 150-450 [facility] Comment on above: Order Comment: Order Date: 03/14/25 Order Info: [id number] - CBC Performed By: #### L 500.4050, L506.0400, L3400.4700, L500.4100, L501.9520, L501.42408, L100.0500 #### [facility] Laboratory [address] [place], [address] RBC (Bld) [#/Vol] 4.65 10*6/uL Normal 4.2-5.4 [facility] Comment on above: Order Comment: Order Date: 03/14/25 Order Info: [id number] - CBC Performed By: #### L 500.4050, L506.0400, L3400.4700, L500.4100, L501.9520, L501.69468, L100.0500 #### [facility] Laboratory [address] [place], [address] RDW SD 49.7 fl High 35.1-43.9 [facility] Comment on above: Order Comment: Order Date: 03/14/25 Order Info: [id number] - CBC Performed By: #### L 500.4050, L506.0400, L3400.4700, L500.4100, L501.9520, L501.49524, L100.0500 #### [facility] Laboratory [address] [place], [address] WBC (Bld) [#/Vol] 5.7 10*3/uL Normal 4.4-11.0 [facility] Comment on above: Order Comment: Order Date: 03/14/25 Order Info: [id number] - CBC Performed By: #### L 500.4050, L506.0400, L3400.4700, L500.4100, L501.9520, L501.92955, L100.0500 #### [facility] Laboratory [address] [place], [place], [id number] Calculated very low density lipoprotein (VLDL) cholesterol measurementOrdered By: Renan Fishman on 03-14-2025 Calculated very low density lipoprotein (VLDL) cholesterol measurement 52 mg/dL High 5-40 [facility] Carbon dioxide, total [Moles /volume] in Central venous bloodOrdered By: Renan Fishman on 03-14-2025 CO2 [Moles/Vol] 24.0 mmol/L 21.0-32.0 [facility] Chloride assayOrdered By: Romelia Fishman on 03-14-2025 Chloride [Moles/Vol] 105 mmol/L 98-108 [facility] Comprehensive Metabolic Prof ilon 03-14-2025 Albumin [Mass/Vol] 3.8 g/dL Normal 3.4-4.8 [facility] Comment on above: Order Comment: Order Date: 03/14/25 Order Info: 0786-1 - CMP Order Info: [id number] - LIPID Order Info: 3050-0 - T3F Order Info: 3015-09 - TSH Order Info: 3024-01 - T4F Performed By: #### L 500.4050, L506.0400, L3400.4700, L500.4100, L501.9520, L501.82610, L100.0500 #### [facility] Laboratory [address] [place], [place], [address] Albumin/Globulin [Mass ratio] 1.3 {ratio} Normal 0.9-2.4 [facility] Comment on above: Order Comment: Order Date: 03/14/25 Order Info: 0786-1 - CMP Order Info: [id number] - LIPID Order Info: 3051-0 - T3F Order Info: 3016-3 - TSH Order Info: 3027 - T4F Performed By: #### L 500.4050, L506.0400, L3400.4700, L500.4100, L501.9520, L501.26262, L100.0500 #### [facility] Laboratory [address] [place], [place], [id number] ALK PHOS 92 U/L Normal 35-104 [facility] Comment on above: Order Comment: Order Date: 03/14/25 Order Info: 86-1 - CMP Order Info: [id number] - LIPID Order Info: 3051-0 - T3F Order Info: 3016-3 - TSH Order Info: 3024-7 - T4F Performed By: #### L 500.4050, L506.0400, L3400.4700, L500.4100, L501.9520, L501.84561, L100.0500 #### [facility] Laboratory [address] [place], [place], [address] ALT [Catalytic activity/Vol] 17 U/L Normal <=34 [facility] Comment on above: Order Comment: Order Date: 03/14/25 Order Info: 785-1 - CMP Order Info: [id number] - LIPID Order Info: 3051-0 - T3F Order Info: 301-3 - TSH Order Info: 3024-7 - T4F Performed By: #### L 500.4050, L506.0400, L3400.4700, L500.4100, L501.9520, L501.13358, L100.0500 #### [facility] Laboratory [address] [place], [place], [address] AST [Catalytic activity/Vol] 21 U/L Normal <=31 [facility] Comment on above: Order Comment: Order Date: 03/14/25 Order Info: 86-1 - CMP Order Info: [id number] - LIPID Order Info: 3051-0 - T3F Order Info: 3016-3 - TSH Order Info: 3024-7 - T4F Performed By: #### L 500.4050, L506.0400, L3400.4700, L500.4100, L501.9520, L501.90787, L100.0500 #### [facility] Laboratory [address] [place], [place], [phone] Bilirubin [Mass/Vol] 0.19 mg/dL Normal 0.00-1.30 [facility] Comment on above: Order Comment: Order Date: 03/14/25 Order Info: 0786-1 - CMP Order Info: [id number] - LIPID Order Info: 3051-0 - T3F Order Info: 3016-3 - TSH Order Info: 3024-7 - T4F Performed By: #### L 500.4050, L506.0400, L3400.4700, L500.4100, L501.9520, L501.94161, L100.0500 #### [facility] Laboratory [address] [place], [place], [phone] BUN/CRE 15.0 RATIO Normal 10-20 [facility] Comment on above: Order Comment: Order Date: 03/14/25 Order Info: 86-1 - CMP Order Info: [id number] - LIPID Order Info: 3051-0 - T3F Order Info: 3016-3 - TSH Order Info: 3024-7 - T4F Performed By: #### L 500.4050, L506.0400, L3400.4700, L500.4100, L501.9520, L501.69198, L100.0500 #### [facility] Laboratory [address] [place], [place], [address] [phone] Calcium [Mass/Vol] 9.4 mg/dL Normal 7.6-11.0 [facility] Comment on above: Order Comment: Order Date: 03/14/25 Order Info: 0786-1 - CMP Order Info: [id number] - LIPID Order Info: 3051-0 - T3F Order Info: 3016-3 - TSH Order Info: 3024-7 - T4F Performed By: #### L 500.4050, L506.0400, L3400.4700, L500.4100, L501.9520, L501.69839, L100.0500 #### [facility] Laboratory [address] [place], [place], [address] Chloride [Moles/Vol] 105 mmol/L Normal 98-108 [facility] Comment on above: Order Comment: Order Date: 03/14/25 Order Info: 86-1 - CMP Order Info: [id number] - LIPID Order Info: 3051-0 - T3F Order Info: 3016-3 - TSH Order Info: 3024-7 - T4F Performed By: #### L 500.4050, L506.0400, L3400.4700, L500.4100, L501.9520, L501.66076, L100.0500 #### [facility] Laboratory [address] [place], [place], [address] CO2 [Moles/Vol] 24.0 mmol/L Normal 21.0-32.0 [facility] Comment on above: Order Comment: Order Date: 03/14/25 Order Info: 785- - CMP Order Info: [id number] - LIPID Order Info: 3051-0 - T3F Order Info: 3016-3 - TSH Order Info: 3024-7 - T4F Performed By: #### L 500.4050, L506.0400, L3400.4700, L500.4100, L501.9520, L501.82211, L100.0500 #### [facility] Laboratory [address] [place], [place], [address] Creatinine [Mass/Vol] 0.94 mg/dL Normal 0.70-1.20 [facility] Comment on above: Order Comment: Order Date: 03/14/25 Order Info: 785-1 - CMP Order Info: [id number] - LIPID Order Info: 3051-0 - T3F Order Info: 3016-3 - TSH Order Info: 3024-7 - T4F Performed By: #### L 500.4050, L506.0400, L3400.4700, L500.4100, L501.9520, L501.88567, L100.0500 #### [facility] Laboratory [address] [place], [place], [address] GAP 13 Normal 5-15 [facility] Comment on above: Order Comment: Order Date: 03/14/25 Order Info: 07 - CMP Order Info: [id number] - LIPID Order Info: 3051-0 - T3F Order Info: 3 - TSH Order Info: 7 - T4F Performed By: #### L 500.4050, L506.0400, L3400.4700, L500.4100, L501.9520, L501.08448, L100.0500 #### [facility] Laboratory [address] [place], [place], [address] GFR/1.73 sq M.predicted among non-blacks MDRD (S/P/Bld) [Vol rate/Area] 61 mL/min/{1.73_m2} Normal >60 [facility] Comment on above: Order Comment: Order Date: 03/14/25 Order Info: 785-07 - CMP Order Info: - LIPID Order Info: 0 - T3F Order Info: 3015-09 - TSH Order Info: 3024-01 - T4F Result Comment: mL/m in/1.73m2 CKD-EPI Creatinine Equation (2020) Performed By: #### L 500.4050, L506.0400, L3400.4700, L500.4100, L501.9520, L501.73387, L100.0500 #### [facility] Laboratory [address] [place], [place], [address] Globulin (S) [Mass/Vol] 3.0 g/dL Normal 2.2-4.2 [facility] Comment on above: Order Comment: Order Date: 03/14/25 Order Info: 785-07 - CMP Order Info: [id number] - LIPID Order Info: 3051-0 - T3F Order Info: 3 - TSH Order Info: 7 - T4F Performed By: #### L 500.4050, L506.0400, L3400.4700, L500.4100, L501.9520, L501.11578, L100.0500 #### [facility] Laboratory [address] [place], [address] Glucose [Mass/Vol] 93 mg/dL Normal 70-99 [facility] Comment on above: Order Comment: Order Date: 03/14/25 Order Info: 785-1 - CMP Order Info: [id number] - LIPID Order Info: 3051-0 - T3F Order Info: 3016-3 - TSH Order Info: 3024-7 - T4F Performed By: #### L 500.4050, L506.0400, L3400.4700, L500.4100, L501.9520, L501.92203, L100.0500 #### [facility] Laboratory [address] [place], [address] Potassium [Moles/Vol] 3.9 mmol/L Normal 3.3-5.1 [facility] Comment on above: Order Comment: Order Date: 03/14/25 Order Info: 785-07 - CMP Order Info: [id number] - LIPID Order Info: 3051-0 - T3F Order Info: 301-3 - TSH Order Info: 3023-7 - T4F Result Comment: Hemo lysis present, Results??could be affected. ?? Performed By: #### L 500.4050, L506.0400, L3400.4700, L500.4100, L501.9520, L501.13325, L100.0500 #### [facility] Laboratory [address] [place], [address] Sodium [Moles/Vol] 142 mmol/L Normal 133-145 [facility] Comment on above: Order Comment: Order Date: 03/14/25 Order Info: 1 - CMP Order Info: [id number] - LIPID Order Info: 3051-0 - T3F Order Info: 3016-3 - TSH Order Info: 3024-7 - T4F Performed By: #### L 500.4050, L506.0400, L3400.4700, L500.4100, L501.9520, L501.27435, L100.0500 #### [facility] Laboratory [address] [place], [place], [address] T PROT 6.8 g/dL Normal 5.9-8.4 [facility] Comment on above: Order Comment: Order Date: 03/14/25 Order Info: 0786-1 - CMP Order Info: [id number] - LIPID Order Info: 3051-0 - T3F Order Info: 3015-3 - TSH Order Info: 7 - T4F Performed By: #### L 500.4050, L506.0400, L3400.4700, L500.4100, L501.9520, L501.07671, L100.0500 #### [facility] Laboratory [address] [place], [address] Urea nitrogen [Mass/Vol] 14 mg/dL Normal 4-19 [facility] Comment on above: Order Comment: Order Date: 03/14/25 Order Info: 0786- - CMP Order Info: [id number] - LIPID Order Info: 3051-0 - T3F Order Info: 301-3 - TSH Order Info: 7 - T4F Performed By: #### L 500.4050, L506.0400, L3400.4700, L500.4100, L501.9520, L501.64846, L100.0500 #### [facility] Laboratory [address] [place], [place], [address] Erythrocyte distribution wid th ratioOrdered By: Renan Fishman on 03-14-2025 Erythrocyte distribution width (RBC) [Ratio] 15.4 % High 11.6-14.6 [facility] Erythrocyte distribution wid th standard deviationOrdered By: Renan Kye on 03-14-2025 Erythrocyte distribution width (RBC) [Ratio] 49.7 fl High 35.1-43.9 [facility] Free T3on 03-14-2025 Free T3 [Mass/Vol] 2.2 pg/mL Normal 2.18-3.98 [facility] Comment on above: Order Comment: Order Date: 03/14/25 Order Info: 0786-1 - CMP Order Info: [id number] - LIPID Order Info: 3051-0 - T3F Order Info: 3013 - TSH Order Info: 7 - T4F Performed By: #### L 500.4050, L506.0400, L3400.4700, L500.4100, L501.9520, L501.48940, L100.0500 #### [facility] Laboratory [address] [place], [place], [address] Free I2Oxskgaq By: Renan urena on 03-14-2025 Free T3 [Mass/Vol] 2.2 pg/mL 2.18-3.98 [facility] Glomerular filtration rate ( GFR) estimation/1.73 sq m using serum, plasma, or whole bOrdered By: Renan Fishman on 03-14-2025 GFR/1.73 sq M.predicted among non-blacks MDRD (S/P/Bld) [Vol rate/Area] 61 mL/min/{1.73_m2} >60 [facility] Comment on above: mL/min/1.73m2 CKD-EP I Creatinine Equation (2020) Hematocrit Auto (Bld) [Volum e fraction]Ordered By: Renan Fishman on 03-14-2025 Hematocrit (Bld) [Volume fraction] 41.0 % 37-47 [facility] Hemoglobin measurementOrdere d By: Renan Fishman on 03-14-2025 Hemoglobin (Bld) [Mass/Vol] 13.4 g/dL 12.0-15.0 [facility] L501.4021on 03-14-2025 Trop T High Sen 21 ng/L High <=14 [facility] Comment on above: Order Comment: Order Date: 03/14/25 Order Info: 0786-1 - CMP Order Info: [id number] - LIPID Order Info: 3051-0 - T3F Order Info: 3 - TSH Order Info: 3024-01 - T4F Performed By: #### L 501.4021, L506.1001, L503.7505 #### [facility] Laboratory [address] [place], [place], [address] LDL calc ser/plasOrdered By: Renan Fishman on 03-14-2025 Cholesterol in LDL [Mass/Vol] 131 mg/dL [facility] Comment on above: Aamxigvpnw=069-637 m g/dL & Higher Xtrq=290 mg/dL or greaterFriedwald Equation for LDL-C Laboratory - Chemistry and C hemistry - challengeOrdered By: Renan Fishman on 03-14-2025 AST [Catalytic activity/Vol] 21 U/L <32 [facility] Lipid Profileon 03-14-2025 CHOL:HDL 4.34 Normal [facility] Comment on above: Order Comment: Order Date: 03/14/25 Order Info: 0786-1 - CMP Order Info: [id number] - LIPID Order Info: 1-0 - T3F Order Info: 3 - TSH Order Info: 3027 - T4F Performed By: #### L 500.4050, L506.0400, L3400.4700, L500.4100, L501.9520, L501.12730, L100.0500 #### [facility] Laboratory [address] [place], [place], [address] Cholesterol [Mass/Vol] 238 mg/dL High <=200 [facility] Comment on above: Order Comment: Order Date: 03/14/25 Order Info: 0786-1 - CMP Order Info: [id number] - LIPID Order Info: 3051-0 - T3F Order Info: 3016-3 - TSH Order Info: 3024-7 - T4F Result Comment: Chol esterol level, Desirable <200 mg/dL Borderline high cholesterol 200-239 mg/dL High cholesterol >=240 mg/dL Recommendations of the NCEP Adult Treatment Panel for the following risk-cutoff thresholds for the [place] population. Performed By: #### L 500.4050, L506.0400, L3400.4700, L500.4100, L501.9520, L501.86619, L100.0500 #### [facility] Laboratory [address] [place], [address] Cholesterol in HDL [Mass/Vol] 55 mg/dL Normal [facility] Comment on above: Order Comment: Order Date: 03/14/25 Order Info: 0786- - CMP Order Info: [id number] - LIPID Order Info: 3050-0 - T3F [...] #### L 500.4050, L506.0400, L3400.4700, L500.4100, L501.9520, L501.14529, L100.0500 #### [facility] Laboratory [address] [place], [address] Cholesterol in LDL [Mass/Vol] 131 mg/dL Normal [facility] Comment on above: Order Comment: Order Date: 03/14/25 Order Info: 0786 - CMP Order Info: [id number] - LIPID Order Info: 0 - T3F Order Info: 3 - TSH Order Info: 3024-01 T4F Result Comment: Bord lalkly=335-423 mg/dL Higher Uheo=974 mg/dL or greater Friedwald Equation for LDL-C Performed By: #### L 500.4050, L506.0400, L3400.4700, L500.4100, L501.9520, L501.14135, L100.0500 #### [facility] Laboratory [address] [place], [address] Cholesterol in VLDL [Mass/Vol] 52 mg/dL High 5-40 [facility] Comment on above: Order Comment: Order Date: 03/14/25 Order Info: 0786- - CMP Order Info: [id number] - LIPID Order Info: 0 - T3F Order Info: 3015-09 - TSH Order Info: 3024-01 T4F Performed By: #### L 500.4050, L506.0400, L3400.4700, L500.4100, L501.9520, L501.89750, L100.0500 #### [facility] Laboratory [address] [place], [place], [address] Triglyceride [Mass/Vol] 262 mg/dL High [facility] Comment on above: Order Comment: Order Date: 03/14/25 Order Info: 0786-1 - CMP Order Info: [id number] - LIPID Order Info: 0 - T3F Order Info: 3015-09 - TSH Order Info: 3024-01 T4F Result Comment: The drugs N-Acetylcysteine and Metamizole may falsely depress this assay. Normal range: <150 mg/dL Borderline High: 150-199 mg/dL High: 200-499 mg/dL Very High: >500 mg/dL Performed By: #### L 500.4050, L506.0400, L3400.4700, L500.4100, L501.9520, L501.79551, L100.0500 #### [facility] Laboratory [address] [place], [place], [address] MCV (mean corpuscular volume ) determinationOrdered By: Renan Fishman on 03-14-2025 MCV (RBC) [Entitic vol] 88.2 fL 81-99 [facility] Mean corpuscular hemoglobin (MCH) determinationOrdered By: Renan Fishman on 03-14-2025 MCH (RBC) [Entitic mass] 28.8 pg 27.0-32.0 [facility] Mean corpuscular hemoglobin concentration (MCHC) determinationOrdered By: Renan Fishman on 03-14-2025 MCHC (RBC) [Mass/Vol] 32.7 g/dL 32-36 [facility] Mean platelet volume determi nationOrdered By: Renan Fishman on 03-14-2025 Platelet mean volume (Bld) [Entitic vol] 10.4 fL 6.2-12.0 [facility] Natriuretic peptide.B prohor chung N-Terminal [Mass/volume] in Serum or PlasmaOrdered By: Renan Fishman on 03-14-2025 Natriuretic peptide.B prohormone N-Terminal [Mass/Vol] 103 pg/mL <1800 [facility] Comment on above: Heart Failure Unlike ly: < 300 pg/mLHeart Failure Likely< 50 Years: > 450 pg/mL50-75 Years: > 900 pg/mL>75 Years: > 1800 pg/mL Platelet countOrdered By: Romelia Fishman on 03-14-2025 Platelets (Bld) [#/Vol] 204 10*3/uL 150-450 [facility] Potassium measurement (mass/ volume)Ordered By: Renan Fishman on 03-14-2025 Potassium (Unsp spec) [Mass/Vol] 3.9 mmol/L 3.3-5.1 [facility] Comment on above: Hemolysis present, R esults could be affected. Pro- Brain NATRIURETIC PEPTI Jameel 03-14-2025 Natriuretic peptide B (Bld) [Mass/Vol] 103 pg/mL Normal <=1800 [facility] Comment on above: Order Comment: Order Date: 03/14/25 Order Info: 0786-1 - CMP Order Info: [id number] - LIPID Order Info: 3051-0 - T3F Order Info: 3016-3 - TSH Order Info: 3024-7 - T4F Result Comment: Hear t Failure Unlikely: < 300 pg/mL Heart Failure Likely < 50 Years: > 450 pg/mL 50-75 Years: > 900 pg/mL >75 Years: > 1800 pg/mL Performed By: #### L 501.4021, L506.1001, L503.7505 #### [facility] Laboratory [address] [place], [place], [address] RBC Auto (Bld) [#/Vol]Ordere d By: Renan Fishman on 03-14-2025 RBC (Bld) [#/Vol] 4.65 10*6/uL 4.2-5.4 [facility] Screening total cholesterol/ high density lipoprotein (HDL) cholesterol ratioOrdered By: Renan Fishman on 03-14-2025 Cholesterol.total/Choles terol in HDL [Mass ratio] 4.34 {ratio} [facility] Serum creatinine measurement (mass/volume)Ordered By: Renan Fishman on 03-14-2025 Creatinine [Mass/Vol] 0.94 mg/dL 0.70-1.20 [facility] Serum globulin measurementOr dered By: Renan Fishman on 03-14-2025 Globulin (S) [Mass/Vol] 3.0 g/dL 2.2-4.2 [facility] Serum glucose measurement (m ass/volume)Ordered By: Renan Fishman on 03-14-2025 Glucose [Mass/Vol] 93 mg/dL 70-99 [facility] Serum or plasma alanine pina otransferase (ALT) measurementOrdered By: Renan Fishman on 03-14-2025 ALT [Catalytic activity/Vol] 17 U/L <35 [facility] Serum or plasma albumin ana laura urement (mass/volume)Ordered By: Renan Fishman on 03-14-2025 Albumin [Mass/Vol] 3.8 g/dL 3.4-4.8 [facility] Serum or plasma albumin/glob ulin mass ratioOrdered By: Renan Fishman on 03-14-2025 Albumin/Globulin [Mass ratio] 1.3 {ratio} 0.9-2.4 [facility] Serum or plasma alkaline debora sphatase measurementOrdered By: Renan Fishman on 03-14-2025 ALP [Catalytic activity/Vol] 92 U/L 35-104 [facility] Serum or plasma calcium ana laura urement (mass/volume)Ordered By: Renan Fishman on 03-14-2025 Calcium [Mass/Vol] 9.4 mg/dL 7.6-11.0 [facility] Serum or plasma cholesterol in HDL measurement (mass/volume)Ordered By: Renan Fishman on 03-14-2025 Cholesterol in HDL [Mass/Vol] 55 mg/dL >40 [facility] Comment on above: National Cholesterol Education Program (NCEP) guidelines:<40 mg/dL: Low HDL-cholesterol (major risk factor for CHD)>= 60 mg/dL: High HDL-cholesterol (negative risk factor for CHD)HDL-cholesterol is affected by a number of factors, e.g. smoking, exercise, hormones, sex and age. Serum or plasma cholesterol measurement (mass/volume)Ordered By: Renan Fishman on 03-14-2025 Cholesterol [Mass/Vol] 238 mg/dL High <201 [facility] Comment on above: Cholesterol level, D esirable <200 mg/dLBorderline high cholesterol 200-239 mg/dLHigh cholesterol >=240 mg/dLRecommendations of the NCEP Adult Treatment Panel for the following risk-cutoff thresholds for the [place] population. Serum or plasma urea nitroge n measurement (mass/volume)Ordered By: Renan Fishman on 03-14-2025 Urea nitrogen [Mass/Vol] 14 mg/dL 4-19 [facility] Sodium levelOrdered By: Cintia Fishman on 03-14-2025 Sodium [Moles/Vol] 142 mmol/L 133-145 [facility] T4 Free Directon 03-14-2025 T4 FREE DIRECT 1.00 ng/dL Normal 0.76-1.46 [facility] Comment on above: Order Comment: Order Date: 03/14/25Order Info: [id number] - CMPOrder Info: [id number] - LIPIDOrder Info: [id number] - B7RIrath Info: [id number] - TSHOrder Info: 3024-7 - T4F Performed By: #### L 500.4050, L506.0400, L3400.4700, L500.4100, L501.9520, L501.77125, L100.0500 ####[facility] [address] [place], [place], [address] T4 freeOrdered By: Renan urena on 03-14-2025 Free T4 [Mass/Vol] 1.00 ng/dL 0.76-1.46 [facility] TSH DL <= 0.005 mIU/L QnOrde red By: Renan Fishman on 03-14-2025 TSH Qn 2.530 uIU/mL 0.300-4.200 [facility] Thyroid Stim Hormone (TSH)on 03-14-2025 TSH 2.530 uIU/mL Normal 0.300-4.200 [facility] Comment on above: Order Comment: Order Date: 03/14/25Order Info: [id number] - CMPOrder Info: [id number] - LIPIDOrder Info: [id number] - C4HGkngh Info: [id number] - TSHOrder Info: [id number] - T4F Performed By: #### L 500.4050, L506.0400, L3400.4700, L500.4100, L501.9520, L501.26196, L100.0500 ####[facility] [address] [place], [address] Thyroid stimulating immunogl obulins detectionOrdered By: Renan Fishman on 03-14-2025 Thyroid stimulating immunoglobulins Ql (S) <0.10 IU/L 0.00-0.55 [facility] Comment on above: Performed at: [address] [id number] Director: Lucio Khan MD, Phone: [phone] Total proteinOrdered By: Charlette Fishman on 03-14-2025 Protein [Mass/Vol] 6.8 g/dL 5.9-8.4 [facility] Triglycerides measurementOrd ered By: Renan Fishman on 03-14-2025 Triglyceride [Mass/Vol] 262 mg/dL High <199 [facility] Comment on above: The drugs N-Acetylcy steine and Metamizole may falsely depress this assay. Normal range: <150 mg/dLBorderline High: 150-199 mg/dLHigh: 200-499 mg/dLVery High: >500 mg/dL Troponin T.cardiac [Mass/vol ume] in Serum or Plasma by High sensitivity methodOrdered By: Renan Fishman on 03-14-2025 Troponin T.cardiac High sensitivity method [Mass/Vol] 21 ng/L High <14 [facility] Vitamin D,25 Hydroxyon 03-14 Vitamin D 25-OH 54.2 ng/mL Normal 30-100 [facility] Comment on above: Order Comment: Order Date: 03/14/25 Order Info: [id number] - CMP Order Info: [id number] - LIPID Order Info: 305-0 - T3F Order Info: 301-3 - TSH Order Info: [id number] - T4F Result Comment: Amina min D Status Deficiency: <20 ng/mL (50nmol/L) Insufficiency: 20-30 ng/mL (50-75 nmol/L) Sufficiency: 30-100 ng/mL (75-250 nmol/L) Toxicity: >100 ng/mL (>250 nmol/L) Performed By: #### L 501.4021, L506.1001, L503.7505 #### [facility] Laboratory [address] [place], [address] White blood cell (WBC) count Ordered By: Renan Fishman on 03-14-2025 WBC (Bld) [#/Vol] 5.7 10*3/uL 4.4-11.0 [facility] CBC panel Auto (Bld)on 11-26 Erythrocyte distribution width (RBC) [Ratio] 15.3 % High 11.5-15.0 [facility] Comment on above: Order Comment: Speci men Type: BLOOD SPECIMENOrdering Facility: [facility] Address: [address] [place] [address] Performed By: #### 5 8410-2 ####[facility] LABCLIA [id number] [place] [address] [place] Hematocrit (Bld) [Volume fraction] 39.5 % Normal 36.0-46.0 [facility] Comment on above: Order Comment: Speci men Type: BLOOD SPECIMENOrdering Facility: [facility] Address: [address] [id number] Performed By: #### 5 8410-2 ####[facility] [place] LABCLIA [id number] [place] [address] [place] Hemoglobin (Bld) [Mass/Vol] 12.7 g/dL Normal 11.5-15.5 [facility] Comment on above: Order Comment: Fredy men Type: BLOOD SPECIMENOrdering Facility: [facility] Address: [address] [place] [address] Performed By: #### 5 8410-2 ####[facility] [place] LABCLIA [id number] [place] [address] [place] [facility] MCH (RBC) [Entitic mass] 28.7 pg Normal 26.0-34.0 [facility] Comment on above: Order Comment: Speci men Type: BLOOD SPECIMENOrdering Facility: [facility] Address: [address] [place] [address] Performed By: #### 5 8410-2 ####[facility] [place] LABCLIA [id number] [place] [address] [facility] [place] MCHC (RBC) [Mass/Vol] 32.2 g/dL Normal 30.5-36.0 [facility] Comment on above: Order Comment: Speci men Type: BLOOD SPECIMENOrdering Facility: [facility] Address: [address] [place] [address] Performed By: #### 5 8410-2 ####[facility] LABCLIA [id number] [place] [address] [facility] [place] MCV (RBC) [Entitic vol] 89.4 fL Normal 80.0-100.0 [facility] Comment on above: Order Comment: Speci men Type: BLOOD SPECIMENOrdering Facility: [facility] Address: [address] [place] [address] Performed By: #### 5 8410-2 ####[facility] LABCLIA [id number] [place] [address] [place] Platelet mean volume (Bld) [Entitic vol] 10.0 fL Normal 9.0-12.7 [facility] Comment on above: Order Comment: Speci men Type: BLOOD SPECIMENOrdering Facility: [facility] Address: [address] [place] [address] Performed By: #### 5 8410-2 ####[facility] LABCLIA [id number] [facility] [place] [address] [place] Platelets (Bld) [#/Vol] 179 10*3/uL Normal 150-400 [facility] Comment on above: Order Comment: Speci men Type: BLOOD SPECIMENOrdering Facility: [facility] Address: [address] [place] [address] Performed By: #### 5 8410-2 ####[facility] LABCLIA [id number] [place] [address] [facility] RBC (Bld) [#/Vol] 4.42 10*6/uL Normal 3.90-5.20 [facility] Comment on above: Order Comment: Speci men Type: BLOOD SPECIMENOrdering Facility: [facility] Address: [address] [place] [address] Performed By: #### 5 8410-2 ####[facility] LABCLIA [id number] [place] [address] [facility] WBC (Bld) [#/Vol] 4.44 10*3/uL Normal 3.70-11.00 [facility] Comment on above: Order Comment: Speci men Type: BLOOD SPECIMENOrdering Facility: [facility] Address: [address] [place] [address] Performed By: #### 5 8410-2 ####[facility] LABCLIA [id number] [place] [address] [facility] CTA CHEST (NON GATED) W IVCO N PEon 11-26-2024 CTA CHEST (NON GATED) W IVCON PE * * *Final Report* * * DATE OF EXAM: Nov 26 2024 3:37PM [facility] - CTA CHEST (NON GATED) W [...] in caliber. Lines, tubes, and devices: Right-sided LEVELMAN shunt coursing superficial to the right hemithorax [...] Lungs are clear without inflammatory infiltrates Right-sided LEVELMAN shunt coursing superficial to the right hemithorax into the right flank region of the abdomen Pbx Repairer: PSCB Transcribe Date/Time: Nov 26 2024 3:47P Dictated by : AFRICA CANNON MD This examination was interpreted and the report reviewed and electronically signed by: AFRICA CANNON MD on Nov 26 2024 3:52PM EST [id number] Normal [facility] Comprehensive metabolic 2000 panelon 11-26-2024 Albumin [Mass/Vol] 3.5 g/dL Low 3.9-4.9 [facility] Comment on above: Order Comment: Speci men Type: BLOOD SPECIMENOrdering Facility: [facility] Address: [address] [place] [address] Performed By: #### 2 4323-8, 94099-4 ####[facility] [place] LABCLIA [id number] [place] [address] [place] ALP [Catalytic activity/Vol] 78 U/L Normal 34-123 [facility] Comment on above: Order Comment: Speci men Type: BLOOD SPECIMENOrdering Facility: [facility] Address: [address] [place] [address] Performed By: #### 2 4323-8, 32965-2 ####[facility] [place] LABCLIA [id number] [place] [address] [place] ALT With P-5'-P [Catalytic activity/Vol] 12 U/L Normal 7-38 [facility] Comment on above: Order Comment: Speci men Type: BLOOD SPECIMENOrdering Facility: [facility] Address: [address] [place] [address] Performed By: #### 2 4323-8, 95962-9 ####[facility] [place] LABCLIA [id number] [place] [address] [place] Anion gap [Moles/Vol] 8 mmol/L Normal 8-15 [facility] Comment on above: Order Comment: Speci men Type: BLOOD SPECIMENOrdering Facility: [facility] Address: [address] [place] [address] Performed By: #### 2 4323-8, 23708-8 ####[facility] [place] LABCLIA [id number] [place] [address] [place] AST With P-5'-P [Catalytic activity/Vol] 17 U/L Normal 13-35 [facility] Comment on above: Order Comment: Speci men Type: BLOOD SPECIMENOrdering Facility: [facility] Address: [address] [place] [address] Performed By: #### 2 4323-8, 02411-2 ####[facility] [place] LABCLIA [id number] [place] [address] [place] Bilirubin [Mass/Vol] 0.2 mg/dL Normal 0.2-1.3 [facility] Comment on above: Order Comment: Speci men Type: BLOOD SPECIMENOrdering Facility: [facility] Address: [address] [place] [address] Performed By: #### 2 4323-8, 46022-8 ####[facility] [place] LABCLIA [id number] [place] [address] [place] Calcium [Mass/Vol] 9.0 mg/dL Normal 8.5-10.2 [facility] Comment on above: Order Comment: Speci men Type: BLOOD SPECIMENOrdering Facility: [facility] Address: [address] [place] [address] Performed By: #### 2 4323-8, 07965-9 ####[facility] [place] LABCLIA [id number] [place] [address] [place] Chloride [Moles/Vol] 107 mmol/L Normal 98-107 [facility] Comment on above: Order Comment: Speci men Type: BLOOD SPECIMENOrdering Facility: [facility] Address: [address] [place] [address] Performed By: #### 2 4323-8, 34776-0 ####[facility] [place] LABCLIA [id number] [place] [address] [place] CO2 [Moles/Vol] 26 mmol/L Normal 22-30 [facility] Comment on above: Order Comment: Speci men Type: BLOOD SPECIMENOrdering Facility: [facility] Address: [address] [place] [address] Performed By: #### 2 4323-8, 49776-6 ####[facility] [place] LABCLIA [id number] [place] [address] [place] Creatinine [Mass/Vol] 0.87 mg/dL Normal 0.58-0.96 [facility] Comment on above: Order Comment: Fredy dowd Type: BLOOD SPECIMENOrdering Facility: [facility] Address: [address] [place] [address] Performed By: #### 2 4323-8, 75712-3 ####[facility] [place] LABCLIA [id number] [place] [address] [place] Creatinine and Glomerular filtration rate.predicted panel (S/P/Bld) 67 mL/min/1.73m??? Normal >=60 [facility] Comment on above: Order Comment: Fredy dowd Type: BLOOD SPECIMENOrdering Facility: [facility] Address: [address] [place] [address] Result Comment: Anna mated Glomerular Filtration Rate [...] actual GFR. Performed By: #### 2 4323-8, 27147-3 ####[facility] LABCLIA [id number] [place] [address] [place] Glucose [Mass/Vol] 97 mg/dL Normal 74-99 [facility] Comment on above: Order Comment: Fredy dowd Type: BLOOD SPECIMENOrdering Facility: [facility] Address: [address] [place] [address] Result Comment: [place] Diabetes Association (ADA) provides guidance for cutoff [...] Standards of Medical Care in Diabetes 2016, [place] Diabetes Association. Diabetes Care. 2016.39(Suppl 1). Performed By: #### 2 4323-8, 53919-6 ####[facility] [place] LABCLIA [id number] [place] [address] [place] Potassium [Moles/Vol] 3.8 mmol/L Normal 3.7-5.1 [facility] Comment on above: Order Comment: Speci men Type: BLOOD SPECIMENOrdering Facility: [facility] Address: [address] [place] [address] Performed By: #### 2 4323-8, 52032-2 ####[facility] LABCLIA [id number] [place] [address] [place] Protein [Mass/Vol] 6.3 g/dL Normal 6.3-8.0 [facility] Comment on above: Order Comment: Speci men Type: BLOOD SPECIMENOrdering Facility: [facility] Address: [address] [place] [address] Performed By: #### 2 4323-8, 20255-2 ####[facility] LABCLIA [id number] [place] [address] [place] Sodium [Moles/Vol] 141 mmol/L Normal 136-144 [facility] Comment on above: Order Comment: Speci men Type: BLOOD SPECIMENOrdering Facility: [facility] Address: [address] [place] [address] Performed By: #### 2 4323-8, 06566-8 ####[facility] LABCLIA [id number] [place] [address] [place] Urea nitrogen [Mass/Vol] 17 mg/dL Normal 7-21 [facility] Comment on above: Order Comment: Speci men Type: BLOOD SPECIMENOrdering Facility: [facility] Address: [address] [place] [address] Performed By: #### 2 4323-8, 03756-5 ####[facility] [place] LABCLIA [id number] [place] [address] [place] D dimer FEU PPP-mCncon 11-26 Fibrin D-dimer FEU (PPP) [Mass/Vol] 3910 ng/mL FEU High <500 [facility] Comment on above: Order Comment: Speci men Type: BLOOD SPECIMENOrdering Facility: [facility] Address: [address] [place] [address] Performed By: #### 4 8065-7 ####[facility] [place] LABCLIA [id number] [place] [address] [place] ECG COMPLETEon 11-26-2024 ECG COMPLETE Ventricular Rate : 7 0 BPM Atrial Rate : 70 BPM P-R Interval : 164 ms QRS Duration : 80 ms Q-T Interval : 410 ms QTC Calculation(Bazett) : 442 ms Calculated P [employer] : 48 degrees Calculated R [employer] : -8 degrees Calculated T [employer] : 46 degrees NORMAL SINUS RHYTHM INFERIOR INFARCT (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) ABNORMAL ECG WHEN COMPARED WITH ECG OF 12-Jul-2024 15:54, NO SIGNIFICANT CHANGE WAS FOUND Confirmed by MD FTAIMA VINAYAK ([id number]) on 11/28/2024 10:54:31 PM NAME : CHRISTIAN SUGGS PID : [id number] : 1945 Gender : Female Race : ORD : [id number] Procedure Date : Nov 26 2024 13:28:44 Edit Date : Nov 28 2024 22:54:33 Diagnosis: NORMAL SINUS RHYTHM INFERIOR INFARCT (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 [facility] ED NOTE HNO ID: [id number] Author: NATALYA SAMANO RN Service: Nursing Author Type: Registered Nurse Type: ED Notes Filed: 11/26/2024 17:39 Note Text: Patient resting in bed with daughter and spouse at bedside. [facility] ED NOTE HNO ID: [id number] Author: NATALYA SAMANO RN Service: Nursing Author Type: Registered Nurse Type: ED Notes Filed: 11/26/2024 17:02 Note Text: at bedside [facility] ED NOTE HNO ID: [id number] Author: NATALYA SAMANO RN Service: Nursing Author Type: Registered Nurse Type: ED Notes Filed: 11/26/2024 15:18 Note Text: Patient denies heart burn at this time sine being medicated. [facility] ED NOTE HNO ID: [id number] Author: NATALYA SAMANO RN Service: Nursing Author Type: Registered Nurse Type: ED Notes Filed: 11/26/2024 13:37 Note Text: Patient has been out of Omeprazole x 1 week. [facility] ED NOTE HNO ID: [id number] Author: NATALYA SAMANO RN Service: Nursing Author [...] her feet, uses a cane at times. [facility] ED NOTE HNO ID: [id number] Author: NATALYA SAMANO RN Service: Nursing Author Type: Registered Nurse Type: ED Notes Filed: 11/26/2024 13:29 Note Text: Normal [facility] ED NOTE HNO ID: [id number] Author: KAYLA PARISH RN Service: Emergency Medicine Author Type: Registered Nurse Type: ED Notes Filed: 11/26/2024 13:20 Note Text: Woke up this morning with chest pain and weakness, brought to ED for eval by daughter Normal [facility] ED PROV NOTEon 11-26-2024 ED PROV NOTE HNO ID: [id number] Author: ONEL SETHI MD Service: Emergency Medicine [...] following components: (more content not included)... Normal [facility] Fibrin D-dimer FEU (PPP) [Ma ss/Vol]on 11-26-2024 D DIMER AGE-RELATED CUTOFF 810 ng/mL FEU Normal [facility] Comment on above: Order Comment: Fredy dowd Type: BLOOD SPECIMENOrdering Facility: [facility] Address: [address] [place] [address] Performed By: #### 4 8065-7 ####[facility] LABIA [id number] [place] [address] [place] HIGH SENSITIVITY TROPONIN T (INITIAL)on 11-26-2024 Troponin T.cardiac High sensitivity method [Mass/Vol] 20 ng/L High <12 [facility] Comment on above: Order Comment: Fredy dowd Type: BLOOD SPECIMENOrdering Facility: [facility] Address: [address] [place] [address] Performed By: #### L [id number] ####[facility] LABCLIA [id number] [place] [address] [place] HIGH SENSITIVITY TROPONIN T (SECOND)on 11-26-2024 Troponin T.cardiac High sensitivity method [Mass/Vol] 21 ng/L High <12 [facility] Comment on above: Order Comment: Fredy dowd Type: BLOOD SPECIMENOrdering Facility: [facility] Address: [address] [id number] Performed By: #### L [id number] ####[facility] LABCLIA [id number] [place] [address] [facility] HIGH SENSITIVITY TROPONIN T (THIRD) 3 HRS AFTER INITIALon 11-26-2024 Troponin T.cardiac High sensitivity method [Mass/Vol] 21 ng/L High <12 [facility] Comment on above: Order Comment: Speci men Type: BLOOD SPECIMENOrdering Facility: [facility] Address: [address] [place] [address] Performed By: #### L [id number] ####[facility] LABIA [id number] [place] [address] [facility] NT-proBNP [facility] 11-26 Natriuretic peptide.B prohormone N-Terminal [Mass/Vol] 98 pg/mL Normal <450 [facility] Comment on above: Order Comment: Speci men Type: BLOOD SPECIMENOrdering Facility: [facility] Address: [address] [place] [address] Performed By: #### 2 4323-8, 07164-4 ####[facility] LABIA [id number] [place] [id number] [facility] US DVT LOWER BILon 5 US DVT [...] of the left and right lower extremities. Pbx Repairer: [facility] Transcribe Date/Time: Nov 26 2024 4:32P Dictated by : EARLINE LEAVITT MD This examination was interpreted and the report reviewed and electronically signed by: EARLINE LEAVITT MD on Nov 26 2024 4:33PM EST [id number] Normal [facility] XR CHEST 2V FRONTAL/LATon XR CHEST 2V [...] 09/09/2025 RESULT: Lines, tubes, and devices: Right-sided LEVELMAN shunt tubing Lungs and pleura: No consolidation. No lung mass. No pleural effusion. No pneumothorax. Cardiomediastinal silhouette: Normal cardiomediastinal silhouette. Bones and soft tissues: Surgical hardware lumbar spine IMPRESSION: No acute radiographic abnormality. Pbx Repairer: PSCB Transcribe Date/Time: Nov 26 2024 2:07P Dictated by : AFRICA CANNON MD This examination was interpreted and the report reviewed and electronically signed by: AFRICA CANNON MD on Nov 26 2024 2:14PM EST [id number] Normal [facility] CNOVon 09-21-2024 CNOV Office Visit (NEAGCL M) ESCHRISTIAN ([id number]) 1945 F Date Time Provider Department 09/21/24 [...] Age: [age] year old Sex: female MRN/E# [id number] Last Office Visit: January 30, 2024 CHIEF COMPLAINT: Patient presents with: Established Patient SUBJECTIVE: The patient presents as a follow up without new imaging for evaluation. This is a 79-year-old female with a PMHx of arthritis, melanoma (right thigh), rotator cuff tear and NPH who was seen for consult on 03/05/2022 as a referral from the [place] emergency department. After sustaining a fall while [...] symptoms were better immediately following placement of LEVELMAN shunt and since then had not improved. [...] 12/20/22 ÁNGEL (more content not included)... [facility] Calista 09-14-2024 SONAM Telephone (NEAGCLM) CHRISTIAN SUGGS ([id number]) 1945 F Date Time Provider Department 09/14/24 [...] any other questions or concerns. Lynn Murdock APRN-[facility] Neurosurgery Nurse Practitioner [facility] 3:07 PM 09/14/2024 Allergies As of Date: [...] 06/06/2011 Spinal stenosis [M48.00] 06/06/2011 Compression fracture [HCS7614] 06/06/2011 Seasonal allergies [J30.2] 06/06/2011 GERD (gastroesophageal [...] Encounter Status:Closed by LYNN MURDOCK on 09/14/24 [facility] CNPN Telephone (NEAGCLM) CHRISTIAN SUGGS ([id number]) 1945 F Date Time Provider Department 09/14/24 [...] 06/06/2011 Spinal stenosis [M48.00] 06/06/2011 Compression fracture [[id number]] 06/06/2011 Seasonal allergies [J30.2] 06/06/2011 GERD (gastroesophageal [...] Status:Closed by [place] on 09/14/24 [facility] ALLIED HEALTHon 09-09-2024 ALLIED HEALTH HNO ID: [id number] Author: VAN MOREIRA RT(R) Service: ? Author [...] PATIENT PRESENTS WITH AN IMPLANTABLE OR ATTACHED PHOTOENGRAVING MACHINE OPERATOR/TENDER: No RADIOLOGY DEPARTMENT: CT; Exam(s) Completed: Brain and General X-ray: Exam(s) Completed: Chest X-Ray Abdomen X-Ray: Abdomen with Upright Spine X-Ray(s): Cervical AP / LAT Skull X-Ray PERIPHERAL IV DATA: Not applicable SIGNED BY: RT Tangela(R) September 09, 2024 2:24 PM [facility] CT BRAIN WO IVCONon 09-09-19 CT BRAIN WO IVCON * * *Final Report* * * DATE OF EXAM: Sep 09 2024 1:40PM [facility] - CT BRAIN WO IVCON / [...] change: Similar postoperative findings from right transfrontal LEVELMAN shunt placement with tip terminating in the [...] shunt positioning with unchanged mild ventricular prominence. Pbx Repairer: PSCB Transcribe Date/Time: Sep 09 2024 1:43P Dictated by : VIRIDIANA GOLD MD This examination was interpreted and the report reviewed and electronically signed by: VIRIDIANA GOLD MD on Sep 09 2024 1:49PM EST [id number] [facility] ED NOTEon 09-09-2024 ED NOTE HNO ID: [id number] Author: RUTH ANN ALVAREZ RN Service: ? [...] and alert, no s/s of distress [facility] ED PROV NOTEon 09-09-2024 ED PROV NOTE HNO ID: [id number] Author: MATEO HUMMEL MD Service: Emergency Medicine Author Type: Physician Type: ED Provider Notes Filed: 09/09/2024 16:03 Note Text: ED Provider Note Patient Name: Christian Suggs : 1945 SERVICE DATE: 09/09/24 History Patient presents with: Headache Neck Pain The patient is an 79-year-old female presenting today for concern for her LEVELMAN shunt. Patient states that she has just [...] her shunt checked out. She has a LEVELMAN shunt due to hydrocephalus. She did have [...] Nerves: C (more content not included)... [facility] XR ABD 2V SUPINE W UPR/DECUB /CTLon [...] FRONTAL ERECT AND SUPINE: CLINICAL INDICATION: Headache. LEVELMAN shunt. COMPARISON: CT brain same day, chest radiograph 07/12/2024, chest radiographs 06/14/2024, and LEVELMAN shunt series 06/14/2024. FINDINGS (COMBINED): Right frontal approach ventriculostomy catheter terminating just left of midline. The LEVELMAN shunt courses through the right side of [...] appears intact. Additional findings as described above. Pbx Repairer: [facility] Transcribe Date/Time: Sep 09 2024 2:33P Dictated by : INES DOMINGUEZ MD This examination was interpreted and the report reviewed and electronically signed by: INES DOMINGUEZ MD on Sep 09 2024 2:42PM EST [id number] [facility] XR CHEST 1V FRONTALon 2024 XR CHEST 1V FRONTAL * * *Final Report* * * DATE OF EXAM: Sep 09 2024 2:16PM LDX 5290 - XR CHEST 1V FRONTAL / PROCEDURE REASON: Other * * * * Physician Interpretation * * * * SKULL, FRONTAL AND LATERAL: SOFT TISSUE NECK, FRONTAL AND LATERAL: CHEST, FRONTAL: ABDOMEN, FRONTAL ERECT AND SUPINE: CLINICAL INDICATION: Headache. LEVELMAN shunt. COMPARISON: CT brain same day, chest radiograph 07/12/2024, chest radiographs 06/14/2024, and LEVELMAN shunt series 06/14/2024. FINDINGS (COMBINED): Right frontal approach ventriculostomy catheter terminating just left of midline. The LEVELMAN shunt courses through the right side of [...] appears intact. Additional findings as described above. Pbx Repairer: [facility] Transcribe Date/Time: Sep 09 2024 2:33P Dictated by : INES DOMINGUEZ MD This examination was interpreted and the report reviewed and electronically signed by: INES DOMINGUEZ MD on Sep 09 2024 2:42PM EST [id number] [facility] XR NECK SOFT TISSUE 2V AP/LA Ton [...] FRONTAL ERECT AND SUPINE: CLINICAL INDICATION: Headache. LEVELMAN shunt. COMPARISON: CT brain same day, chest radiograph 07/12/2024, chest radiographs 06/14/2024, and LEVELMAN shunt series 06/14/2024. FINDINGS (COMBINED): Right frontal approach ventriculostomy catheter terminating just left of midline. The LEVELMAN shunt courses through the right side of [...] appears intact. Additional findings as described above. Pbx Repairer: [facility] Transcribe Date/Time: Sep 09 2024 2:33P Dictated by : INES DOMINGUEZ MD This examination was interpreted and the report reviewed and electronically signed by: INES DOMINGUEZ MD on Sep 09 2024 2:42PM EST [id number] [facility] XR SKULL 2V AP/LATon 025 XR SKULL 2V AP/LAT * * *Final Report* * * DATE OF EXAM: Sep 09 2024 2:16PM LDX 5259 - XR SKULL 2V AP/LAT / PROCEDURE REASON: Other * * * * Physician Interpretation * * * * SKULL, FRONTAL AND LATERAL: SOFT TISSUE NECK, FRONTAL AND LATERAL: CHEST, FRONTAL: ABDOMEN, FRONTAL ERECT AND SUPINE: CLINICAL INDICATION: Headache. LEVELMAN shunt. COMPARISON: CT brain same day, chest radiograph 07/12/2024, chest radiographs 06/14/2024, and LEVELMAN shunt series 06/14/2024. FINDINGS (COMBINED): Right frontal approach ventriculostomy catheter terminating just left of midline. The LEVELMAN shunt courses through the right side of [...] appears intact. Additional findings as described above. Pbx Repairer: [facility] Transcribe Date/Time: Sep 09 2024 2:33P Dictated by : INES DOMINGUEZ MD This examination was interpreted and the report reviewed and electronically signed by: INES DOMINGUEZ MD on Sep 09 2024 2:42PM EST [id number] [facility] ALLIED HEALTHon 07-12-2024 ALLIED HEALTH HNO ID: [id number] Author: AMBER KRUGER RT(R) Service: ? Author [...] PATIENT PRESENTS WITH AN IMPLANTABLE OR ATTACHED PHOTOENGRAVING MACHINE OPERATOR/TENDER: No RADIOLOGY DEPARTMENT: General X-ray: Exam(s) Completed: Chest X-Ray PERIPHERAL IV DATA: Not applicable SIGNED BY: Amber Kruger RT(R) July 12, 2024 5:07 PM [facility] Basic metabolic 2000 panelon 07-12-2024 Anion gap [Moles/Vol] 10 mmol/L Normal 8-15 [facility] Comment on above: Order Comment: Speci men Type: BLOOD SPECIMENOrdering Facility: [facility] Address: [address] [place] [address] Performed By: #### 2 4321-2, 82055-1 ####[facility] [place] LABCLIA [id number] [place] [address] [place] Calcium [Mass/Vol] 9.5 mg/dL Normal 8.5-10.2 [facility] Comment on above: Order Comment: Speci men Type: BLOOD SPECIMENOrdering Facility: [facility] Address: [address] [place] [address] Performed By: #### 2 4321-2, 32093-5 ####[facility] [place] LABCLIA [id number] [place] [address] [place] Chloride [Moles/Vol] 103 mmol/L Normal 98-107 [facility] Comment on above: Order Comment: Speci men Type: BLOOD SPECIMENOrdering Facility: [facility] Address: [address] [place] [address] Performed By: #### 2 4321-2, 27795-5 ####[facility] [place] LABCLIA [id number] [place] [address] [place] CO2 [Moles/Vol] 27 mmol/L Normal 22-30 [facility] Comment on above: Order Comment: Speci men Type: BLOOD SPECIMENOrdering Facility: [facility] Address: [address] [place] [address] Performed By: #### 2 4321-2, 10748-8 ####[facility] LABCLIA [id number] [place] [address] [place] [facility] Creatinine [Mass/Vol] 0.75 mg/dL Normal 0.58-0.96 [facility] Comment on above: Order Comment: Fredy dowd Type: BLOOD SPECIMENOrdering Facility: [facility] Address: [address] [place] [address] Performed By: #### 2 4321-2, 30451-3 ####[facility] LABCLIA [id number] [place] [address] [facility] Creatinine and Glomerular filtration rate.predicted panel (S/P/Bld) 81 mL/min/1.73m??? Normal >=60 [facility] Comment on above: Order Comment: Fredy dowd Type: BLOOD SPECIMENOrdering Facility: [facility] Address: [address] [place] [address] Result Comment: Anna mated Glomerular Filtration Rate [...] actual GFR. Performed By: #### 2 4321-2, 19445-0 ####[facility] LABIA [id number] [place] [address] [place] Glucose [Mass/Vol] 94 mg/dL Normal 74-99 [facility] Comment on above: Order Comment: Fredy dowd Type: BLOOD SPECIMENOrdering Facility: [facility] Address: [address] [place] [address] Result Comment: The [place] Diabetes Association (ADA) provides guidance for cutoff [...] Standards of Medical Care in Diabetes 2016, [place] Diabetes Association. Diabetes Care. 2016.39(Suppl 1). Performed By: #### 2 4321-2, 75962-7 ####[facility] [place] LABCLIA [id number] [place] [address] [place] [facility] Potassium [Moles/Vol] 4.8 mmol/L Normal 3.7-5.1 [facility] Comment on above: Order Comment: Fredy dowd Type: BLOOD SPECIMENOrdering Facility: [facility] Address: [address] [place] [address] Performed By: #### 2 4321-2, 11511-4 ####[facility] LABCLIA [id number] [address] STATES [facility] Sodium [Moles/Vol] 140 mmol/L Normal 136-144 [facility] Comment on above: Order Comment: Fredy dowd Type: BLOOD SPECIMENOrdering Facility: [facility] Address: [address] [place] [address] Performed By: #### 2 4321-2, 73351-1 ####[facility] LABCLIA [id number] [place] [address] [place] [facility] Urea nitrogen [Mass/Vol] 14 mg/dL Normal 7-21 [facility] Comment on above: Order Comment: Fredy dowd Type: BLOOD SPECIMENOrdering Facility: [facility] Address: [address] [place] [address] Performed By: #### 2 4321-2, 94615-0 ####[facility] LABCLIA [id number] [place] [address] [place] CBC W Auto Differential pane l (Bld)on 07-12-2024 Basophils (Bld) [#/Vol] 0.03 10*3/uL Normal <0.11 [facility] Comment on above: Order Comment: Speci men Type: BLOOD SPECIMENOrdering Facility: [facility] Address: [address] [place] [address] Performed By: #### 5 7021-8 ####[facility] [place] LABCLIA [id number] [place] [address] [place] Basophils/100 WBC (Bld) 0.5 % Normal A [facility] Comment on above: Order Comment: Speci men Type: BLOOD SPECIMENOrdering Facility: [facility] Address: [address] [place] [address] Performed By: #### 5 7021-8 ####[facility] [place] LABCLIA [id number] [facility] [place] [address] [facility] Differential cell count method Nom (Bld) Auto Normal [facility] Comment on above: Order Comment: Speci men Type: BLOOD SPECIMENOrdering Facility: [facility] Address: [address] [place] [address] Performed By: #### 5 7021-8 ####[facility] [place] LABCLIA [id number] [place] [address] [facility] Eosinophils (Bld) [#/Vol] 0.12 10*3/uL Normal <0.46 [facility] Comment on above: Order Comment: Speci men Type: BLOOD SPECIMENOrdering Facility: [facility] Address: [address] [place] [address] Performed By: #### 5 7021-8 ####[facility] [place] LABCLIA [id number] [place] [address] [facility] Eosinophils/100 WBC (Bld) 2.0 % Normal [facility] Comment on above: Order Comment: Speci men Type: BLOOD SPECIMENOrdering Facility: [facility] Address: [address] [place] [address] Performed By: #### 5 7021-8 ####[facility] [place] LABCLIA [id number] [facility] [place] [address] [facility] [place] Erythrocyte distribution width (RBC) [Ratio] 14.7 % Normal 11.5-15.0 [facility] Comment on above: Order Comment: Speci men Type: BLOOD SPECIMENOrdering Facility: [facility] Address: [address] [place] [address] Performed By: #### 5 7021-8 ####[facility] [place] LABCLIA [id number] [facility] [address] [place] Hematocrit (Bld) [Volume fraction] 41.7 % Normal 36.0-46.0 [facility] Comment on above: Order Comment: Speci men Type: BLOOD SPECIMENOrdering Facility: [facility] Address: [address] [place] [address] Performed By: #### 5 7021-8 ####[facility] [place] LABCLIA [id number] [place] [address] [place] Hemoglobin (Bld) [Mass/Vol] 13.5 g/dL Normal 11.5-15.5 [facility] Comment on above: Order Comment: Speci men Type: BLOOD SPECIMENOrdering Facility: [facility] Address: [address] [place] [address] Performed By: #### 5 7021-8 ####[facility] [place] LABCLIA [id number] [place] [address] [place] Immature granulocytes (Bld) [#/Vol] 10*3/uL Normal <0.10 [facility] Comment on above: Order Comment: Speci men Type: BLOOD SPECIMENOrdering Facility: [facility] Address: [address] [place] [address] Performed By: #### 5 7021-8 ####[facility] [place] LABCLIA [id number] [facility] [place] [address] [place] Immature granulocytes/100 WBC (Bld) 0.2 % Normal [facility] Comment on above: Order Comment: Speci men Type: BLOOD SPECIMENOrdering Facility: [facility] Address: [address] [place] [address] Performed By: #### 5 7021-8 ####[facility] [place] LABCLIA [id number] [place] [address] [place] Lymphocytes (Bld) [#/Vol] 1.43 10*3/uL Normal 1.00-4.00 [facility] Comment on above: Order Comment: Speci men Type: BLOOD SPECIMENOrdering Facility: [facility] Address: [address] [place] [address] Performed By: #### 5 7021-8 ####[facility] LABCLIA [id number] [place] [address] [facility] Lymphocytes/100 WBC (Bld) 23.8 % Normal [facility] Comment on above: Order Comment: Speci men Type: BLOOD SPECIMENOrdering Facility: [facility] Address: [address] [place] [address] Performed By: #### 5 7021-8 ####[facility] LABCLIA [id number] [place], [place] [address] [place] [address] MCH (RBC) [Entitic mass] 29.2 pg Normal 26.0-34.0 [facility] Comment on above: Order Comment: Speci men Type: BLOOD SPECIMENOrdering Facility: [facility] Address: [address] [place] [address] Performed By: #### 5 7021-8 ####[facility] LABCLIA [id number] [place] [address] [facility] MCHC (RBC) [Mass/Vol] 32.4 g/dL Normal 30.5-36.0 [facility] Comment on above: Order Comment: Speci men Type: BLOOD SPECIMENOrdering Facility: [facility] Address: [address] [place] [address] Performed By: #### 5 7021-8 ####[facility] LABCLIA [id number] [place] [address] [place] MCV (RBC) [Entitic vol] 90.1 fL Normal 80.0-100.0 A [facility] Comment on above: Order Comment: Speci men Type: BLOOD SPECIMENOrdering Facility: [facility] Address: [address] [place] [address] Performed By: #### 5 7021-8 ####[facility] [place] LABCLIA [id number] [place] [address] [place] Monocytes (Bld) [#/Vol] 0.37 10*3/uL Normal <0.87 [facility] Comment on above: Order Comment: Speci men Type: BLOOD SPECIMENOrdering Facility: [facility] Address: [address] [place] [address] Performed By: #### 5 7021-8 ####[facility] [place] LABCLIA [id number] [place] [address] [place] Monocytes/100 WBC (Bld) 6.1 % Normal A [facility] Comment on above: Order Comment: Speci men Type: BLOOD SPECIMENOrdering Facility: [facility] Address: [address] [place] [address] Performed By: #### 5 7021-8 ####[facility] [place] LABCLIA [id number] [place] [address] [place] Neutrophils (Bld) [#/Vol] 4.06 10*3/uL Normal 1.45-7.50 [facility] Comment on above: Order Comment: Speci men Type: BLOOD SPECIMENOrdering Facility: [facility] Address: [address] [place] [address] Performed By: #### 5 7021-8 ####[facility] [place] LABCLIA [id number] [place] [address] [place] Neutrophils/100 WBC (Bld) 67.4 % Normal [facility] Comment on above: Order Comment: Speci men Type: BLOOD SPECIMENOrdering Facility: [facility] Address: [address] [place] [address] Performed By: #### 5 7021-8 ####[facility] [place] LABCLIA [id number] [place] [address] [place] Nucleated RBC (Bld) [#/Vol] Normal [facility] Comment on above: Order Comment: Speci men Type: BLOOD SPECIMENOrdering Facility: [facility] Address: [address] [place] [address] Performed By: #### 5 7021-8 ####[facility] LABCLIA [id number] [place] [address] [place] Nucleated RBC/100 WBC (Bld) [Ratio] Normal [facility] Comment on above: Order Comment: Speci men Type: BLOOD SPECIMENOrdering Facility: [facility] Address: [address] [place] [address] Performed By: #### 5 7021-8 ####[facility] LABCLIA [id number] [place] [address] [place] Platelet mean volume (Bld) [Entitic vol] Normal [facility] Comment on above: Order Comment: Speci men Type: BLOOD SPECIMENOrdering Facility: [facility] Address: [address] [place] [address] Result Comment: Unab le to Report. Performed By: #### 5 7021-8 ####[facility] LABCLIA [id number] [place] [address] [place] Platelets (Bld) [#/Vol] 187 10*3/uL Normal 150-400 [facility] Comment on above: Order Comment: Speci men Type: BLOOD SPECIMENOrdering Facility: [facility] Address: [address] [place] [address] Result Comment: No c lot detected.Platelet count confirmed by manual review of peripheral blood smear. Performed By: #### 5 7021-8 ####[facility] [place] LABCLIA [id number] [place] [address] [place] RBC (Bld) [#/Vol] 4.63 10*6/uL Normal 3.90-5.20 [facility] Comment on above: Order Comment: Speci men Type: BLOOD SPECIMENOrdering Facility: [facility] Address: [address] [place] [address] Performed By: #### 5 7021-8 ####[facility] LABCLIA [id number] [place] [address] [facility] WBC (Bld) [#/Vol] 6.02 10*3/uL Normal 3.70-11.00 [facility] Comment on above: Order Comment: Speci men Type: BLOOD SPECIMENOrdering Facility: [facility] Address: [address] [place] [id number] Performed By: #### 5 7021-8 ####[facility] LABCLIA [id number] [place] [address] [facility] ECG COMPLETEon 07-12-2024 ECG COMPLETE Ventricular Rate : 6 7 BPM Atrial Rate : 67 BPM P-R Interval : 166 ms QRS Duration : 74 ms Q-T Interval : 402 ms QTC Calculation(Bazett) : 424 ms Calculated P [employer] : 54 degrees Calculated R [employer] : -10 degrees Calculated T [employer] : 30 degrees NORMAL SINUS RHYTHM INFERIOR INFARCT , AGE UNDETERMINED ABNORMAL ECG NO PREVIOUS ECGS AVAILABLE Confirmed by MD FATIMA VINAYAK ([id number]) on 07/14/2024 12:45:40 PM NAME : CHRISTIAN SUGGS PID : [id number] : 1945 Gender : Female Race : ORD : [id number] Procedure Date : Jul 12 2024 15:54:01 Edit Date : Jul 14 2024 12:45:41 Diagnosis: NORMAL SINUS RHYTHM INFERIOR INFARCT , AGE UNDETERMINED ABNORMAL ECG NO PREVIOUS ECGS AVAILABLE Confirmed by MD FATIMA VINAYAK ([id number]) on 07/14/2024 12:45:40 PM Test Reason : Chest Pain Location : 191 : [facility] ED Overread By : MD FATIMA VINAYAK Edited By : MD FATIMA VINAYAK Referred By : , Acquired by : YANIRA HULL [facility] ED NOTEon 07-12-2024 ED NOTE HNO ID: [id number] Author: OMER SHELL RN Service: ? Author [...] anything else to help you? No Normal [facility] ED NOTE HNO ID: [id number] Author: DARRIAN MYERS RN Service: ? Author Type: Registered Nurse Type: ED Notes Filed: 07/12/2024 18:35 Note Text: D/c instructions reviewed with pt and pt's daughter who verbalized understanding. Pt's vss and left ED ual and in stable condition. Normal [facility] ED NOTE HNO ID: [id number] Author: DARRIAN MYERS RN Service: ? Author Type: Registered Nurse Type: ED Notes Filed: 07/12/2024 14:57 Note Text: Pt comes to ED c/o bilateral leg swelling for one month. Pt states that the swelling progressively gets worse throughout the day. Denies pain. States they feel heavy and weakness. She is AANDOx3, vss. Will continue to monitor. Normal [facility] ED PROV NOTEon 07-12-2024 ED PROV NOTE HNO ID: [id number] Author: MONICA HOOKER MD Service: Emergency Medicine [...] ED Course. (more content not included)... Normal [facility] HIGH SENSITIVITY TROPONIN To n 07-12-2024 Troponin T.cardiac High sensitivity method [Mass/Vol] 23 ng/L High <12 [facility] Comment on above: Order Comment: Speci men Type: BLOOD SPECIMENOrdering Facility: [facility] Address: [address] [place] [address] Performed By: #### H STNT ####[facility] [place] LABCLIA [id number] [place] [address] [place] Troponin T.cardiac High sensitivity method [Mass/Vol] 24 ng/L High <12 [facility] Comment on above: Order Comment: Speci men Type: BLOOD SPECIMENOrdering Facility: [facility] Address: [facility] [place] [address] Performed By: #### H STNT ####[facility] LABCLIA [id number] [place] [address] [facility] NT-proBNP SerPl-ncon 07-12 Natriuretic peptide.B prohormone N-Terminal [Mass/Vol] 253 pg/mL Normal <450 [facility] Comment on above: Order Comment: Speci men Type: BLOOD SPECIMENOrdering Facility: [facility] Address: [facility] [address] [place] [address] Performed By: #### 2 4321-2, 28639-0 ####[facility] LABCLIA [id number] [place] [id number] [facility] US DVT LOWER BILon 4 US DVT [...] of the left and right lower extremities. Pbx Repairer: [facility] Transcribe Date/Time: Jul 12 2024 6:00P Dictated by : PETRA SIMENTAL MD This examination was interpreted and the report reviewed and electronically signed by: PETRA SIMENTAL MD on Jul 12 2024 6:01PM EST [id number] Normal [facility] Urinalysis complete panel (U )on 07-12-2024 Bilirubin Ql (U) Negative Normal Negative [facility] Comment on above: Order Comment: Speci men Type: URINE SPECIMENOrdering Facility: [facility] Address: [address] [place] [address] Performed By: #### 2 4356-8 ####[facility] LABCLIA [id number] [place] [address] [place] Clarity (Unsp spec) Clear Normal Clear [facility] Comment on above: Order Comment: Speci men Type: URINE SPECIMENOrdering Facility: [facility] Address: [address] [place] [address] Performed By: #### 2 4356-8 ####[facility] LABCLIA [id number] [facility] [place] [address] [place] Color (U) Yellow Normal Yellow [facility] Comment on above: Order Comment: Speci men Type: URINE SPECIMENOrdering Facility: [facility] Address: [address] [place] [address] Performed By: #### 2 4356-8 ####[facility] LABCLIA [id number] [facility] [place] [address] [place] Glucose Test strip (U) [Mass/Vol] Negative Normal Negative [facility] Comment on above: Order Comment: Speci men Type: URINE SPECIMENOrdering Facility: [facility] Address: [address] [place] [address] Performed By: #### 2 4356-8 ####[facility] LABCLIA [id number] [place] [address] [place] Hemoglobin Ql (U) Negative Normal Negative [facility] Comment on above: Order Comment: Speci men Type: URINE SPECIMENOrdering Facility: [facility] Address: [address] [place] [address] Performed By: #### 2 4356-8 ####[facility] LABCLIA [id number] [facility] [address] [place] Ketones Ql (U) Negative Normal Negative [facility] Comment on above: Order Comment: Speci men Type: URINE SPECIMENOrdering Facility: [facility] Address: [address] [place] [address] Performed By: #### 2 4356-8 ####[facility] LABCLIA [id number] [facility] [place] [address] [place] Leukocyte esterase Test strip Ql (U) Negative Normal Negative [facility] Comment on above: Order Comment: Speci men Type: URINE SPECIMENOrdering Facility: [facility] Address: [address] [place] [address] Performed By: #### 2 4356-8 ####[facility] LABCLIA [id number] [place] [address] [place] Nitrite Ql (U) Negative Normal Negative [facility] Comment on above: Order Comment: Speci men Type: URINE SPECIMENOrdering Facility: [facility] Address: [address] [place] [address] Performed By: #### 2 4356-8 ####[facility] LABCLIA [id number] [place] [address] [place] pH (U) 7.0 [pH] Normal 5.0-8.0 [facility] Comment on above: Order Comment: Speci men Type: URINE SPECIMENOrdering Facility: [facility] Address: [address] [place] [address] Performed By: #### 2 4356-8 ####[facility] LABCLIA [id number] [place] [address] [place] Protein (U) [Mass/Vol] Negative Normal Negative [facility] Comment on above: Order Comment: Speci men Type: URINE SPECIMENOrdering Facility: [facility] Address: [address] [place] [address] Performed By: #### 2 4356-8 ####[facility] LABCLIA [id number] [place] [address] [place] RBC LM.HPF (Urine sed) [#/Area] 0-3 /HPF Normal 0-3 /HPF [facility] Comment on above: Order Comment: Speci men Type: URINE SPECIMENOrdering Facility: [facility] Address: [address] [place] [address] Performed By: #### 2 4356-8 ####[facility] LABCLIA [id number] [place] [address] [facility] [place] Specific gravity (U) [Rel density] 1.020 Normal 1.005-1.030 [facility] Comment on above: Order Comment: Speci men Type: URINE SPECIMENOrdering Facility: [facility] Address: [address] [place] [address] Performed By: #### 2 4356-8 ####[facility] LABCLIA [id number] [place] [address] [facility] Urobilinogen Ql (U) 0.2 EU/dL Normal 0.2-1.0 EU/dL [facility] Comment on above: Order Comment: Speci men Type: URINE SPECIMENOrdering Facility: [facility] Address: [address] [place] [address] Performed By: #### 2 4356-8 ####[facility] LABCLIA [id number] [place] [address] [facility] WBC LM.HPF (Urine sed) [#/Area] 0-5 /HPF Normal 0-5 /HPF [facility] Comment on above: Order Comment: Speci men Type: URINE SPECIMENOrdering Facility: [facility] Address: [address] [place] [address] Performed By: #### 2 4356-8 ####[facility] LABCLIA [id number] [place] [address] [facility] XR CHEST 1V FRONTALon 2023 XR CHEST [...] upper abdomen are not significantly changed. . Pbx Repairer: TERESA Transcribe Date/Time: Jul 12 2024 5:43P Dictated by : KOURTNEY ROWELL MD This examination was interpreted and the report reviewed and electronically signed by: KOURTNEY ROWELL MD on Jul 12 2024 5:44PM EST [id number] Normal [facility] Gastroenterology Visit Repor ton 07-01-2024 Gastroenterology Visit Report [facility] Gastroenterology [address] [place] [address] OFFICE VISIT Date of Service: 07/01/24 MR#: [id number] Acct: [id number] Name: CHRISTIAN SUGGS Rep #: [id number] 05 : 1945 Provider: Godwin Alvarez DO Age/Sex: 78/F Location[facility] Status: Signed Intake Vital Signs 01/13/23 14:19 [...] physical activity do you participate in: none ye/hindu: [employer] seatbelt use: always HPI HPI Chief Complaint: [...] stools layla (more content not included)... Normal [facility] 06-16-2024 SONAM Telephone (AKRX) CHRISTIAN SUGGS ([id number]) 1945 F Date Time Provider Department 06/16/24 CHUYITA CORTES During your visit today, we recorded the following information about you: Chuyita Cortes riley 06/16/2024 9:37 AM Signed Emergency Department Culture [...] Comments Date Reviewed: 06/14/2024 Reviewed by: Janene Nye, GAURAV - Fully Assessed Reason for Visit: Results [95] Order(s):Order #: [id number] Prescriptions as of 06/16/2024 - sulfamethoxazole-trimet hoprim [...] 06/06/2011 Spinal stenosis [M48.00] 06/06/2011 Compression fracture [JRA8239] 06/06/2011 Seasonal allergies [J30.2] 06/06/2011 GERD (gastroesophageal [...] Encounter Prescriptio (more content not included)... Normal [facility] [place] 06-15-2024 SONAM Telephone (NEAGCLM) CHRISTIAN SUGGS ([id number]) 1945 F Date Time Provider Department 06/15/24 LYNN MURDOCK NEAGCLM During your visit today, we recorded the following information about you: Lynn Murdock APRN.DATA COMMUNICATIONS ANALYST 06/15/2024 10:28 AM Signed Returned call to patient's daughter Laura. She had left a message yesterday when I was out of the office that her mom was very dizzy, weak and had vomited. She was taken to an outside ED and was told she had vertigo. Prior to me returning the call the patient was taken to [facility] ED where workup was completed including [...] future should the need arise. Lynn Murdock APRN-DATA COMMUNICATIONS ANALYST Neurosurgery Nurse Practitioner [facility] General 10:27 AM 06/15/2024 Allergies As of Date: 06/15/2024 Noted Allergy Reaction HYDROCODONE BITARTRATE 09/17/2018 8 - GI Upset MESALAMINE 09/24/2021 17 - Myalgia OXYCODONE 09/17/2018 8 - GI Upset FLAGYL (NITROIMIDAZOLES) 01/15/2016 14 - Other: See Comments Comments: metal mouth SCOPOLAMINE 09/17/2018 14 - Other: See Comments Date Reviewed: 06/14/2024 Reviewed by: Janene Nye, GAURAV - Fully Assessed Reason for Visit: Returning [...] 06/06/2011 Spinal stenosis [M48.00] 06/06/2011 Compression fracture [APX0063] 06/06/2011 Seasonal allergies [J30.2] 06/06/2011 GERD (gastroesophageal [...] Encounter Status:Closed by LYNN MURDOCK on 06/15/24 [facility] ED PROV NOTEon 06-15-2024 ED PROV NOTE HNO ID: [id number] Author: TOR AGUILAR DO Service: Emergency Medicine Author Type: Physician Type: ED Provider Notes Filed: 06/15/2024 02:27 Note Text: TEACHING ATTESTATION: I personally saw and examined the patient. I reviewed the resident's note. I agree with the resident's assessment and plan unless otherwise noted. 78-year-old female presents to the emerged department with generalized weakness and dizziness. 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 She was seen at [facility] a couple of days ago and daughter [...] stable condition. TOR PHELAN 06/15/24 0227 Normal [facility] ED PROV NOTE HNO ID: [id number] Author: TOR AGUILAR DO Service: Critical Care Author Type: Physician Type: ED Provider Notes Filed: 06/15/2024 04:55 Note Text: ED Provider Note Patient Name: Christian Suggs : 1945 SERVICE DATE: 06/14/24 History Patient presents with: Dizziness: Pt c/o dizziness +nANDv pt thinks her shunt isn't working denies headache [facility] [place] [facility] 78-year-old with past [...] and patient is concerned or malfunction of LEVELMAN shunt .Patient denies fever, chills, ear ringing, [...] atrophy. Coordination: Romberg sign negative. Coordination normal. Jugfad-Uzrj-Nbjpuu Test normal. Diagnostic Testing ED Labs Ordered [...] within normal (more content not included)... Normal [facility] 06-14-2024 [facility] HNO ID: [id number] Author: SANGITA SNELL RT(R) Service: Radiology Author [...] PATIENT PRESENTS WITH AN IMPLANTABLE OR ATTACHED PHOTOENGRAVING MACHINE OPERATOR/TENDER: No RADIOLOGY DEPARTMENT: CT; Exam(s) Completed: Brain PERIPHERAL IV DATA: Not applicable SIGNED BY: RT Kamlesh(R) June 14, 2024 1:57 PM Normal [facility] Bacteria Ur Culton 4 Bacteria identified Cx Nom (U) ORGANISM ID: [...] , Intermediate >32 , Resistant >64 Abnormal [facility] Comment on above: Performed By: #### 6 30-4, 09471-4 ####[facility] LABORATORYCLIA [id number] [address] STATES OF [facility] CBC W Auto Differential pane l (Bld)on 06-14-2024 Basophils (Bld) [#/Vol] 0.03 10*3/uL Normal <0.11 [facility] Comment on above: Order Comment: Speci men Type: BLOOD SPECIMENOrdering Facility: [facility] Address: [address] [place] [address] Performed By: #### 5 7021-8 ####[facility] LABORATORYCLIA [id number] [address] STATES [facility] Basophils/100 WBC (Bld) 0.4 % Normal A [facility] Comment on above: Order Comment: Speci men Type: BLOOD SPECIMENOrdering Facility: [facility] Address: [address] [place] [address] Performed By: #### 5 7021-8 ####[facility] LABORATORYCLIA [id number] [address] Differential cell count method Nom (Bld) Auto Normal [facility] Comment on above: Order Comment: Speci men Type: BLOOD SPECIMENOrdering Facility: [facility] Address: [address] [place] [address] Performed By: #### 5 7021-8 ####[facility] LABORATORYCLIA [id number] [place] [address] [place] Eosinophils (Bld) [#/Vol] 0.06 10*3/uL Normal <0.46 [facility] Comment on above: Order Comment: Speci men Type: BLOOD SPECIMENOrdering Facility: [facility] Address: [facility] [place] [address] Performed By: #### 5 7021-8 ####[facility] LABORATORYCLIA [id number] [address] Eosinophils/100 WBC (Bld) 0.8 % Normal [facility] Comment on above: Order Comment: Speci men Type: BLOOD SPECIMENOrdering Facility: [facility] Address: [address] [place] [address] Performed By: #### 5 7021-8 ####[facility] LABORATORYCLIA [id number] [address] [place] Erythrocyte distribution width (RBC) [Ratio] 15.1 % High 11.5-15.0 [facility] Comment on above: Order Comment: Speci men Type: BLOOD SPECIMENOrdering Facility: [facility] Address: [address] [place] [address] Performed By: #### 5 7021-8 ####[facility] LABORATORYCLIA [id number] [address] [place] Hematocrit (Bld) [Volume fraction] 44.5 % Normal 36.0-46.0 [facility] Comment on above: Order Comment: Speci men Type: BLOOD SPECIMENOrdering Facility: [facility] Address: [address] [place] [address] Performed By: #### 5 7021-8 ####[facility] LABORATORYCLIA [id number] [address] OF [place] Hemoglobin (Bld) [Mass/Vol] 14.5 g/dL Normal 11.5-15.5 [facility] Comment on above: Order Comment: Speci men Type: BLOOD SPECIMENOrdering Facility: [facility] Address: [address] [place] [address] Performed By: #### 5 7021-8 ####[facility] LABORATORYCLIA [id number] [address] Immature granulocytes (Bld) [#/Vol] 10*3/uL Normal <0.10 [facility] Comment on above: Order Comment: Speci men Type: BLOOD SPECIMENOrdering Facility: [facility] Address: [address] [place] [address] Performed By: #### 5 7021-8 ####[facility] LABORATORYCLIA [id number] [address] Immature granulocytes/100 WBC (Bld) 0.3 % Normal [facility] Comment on above: Order Comment: Speci men Type: BLOOD SPECIMENOrdering Facility: [facility] Address: [address] [place] [address] Performed By: #### 5 7021-8 ####[facility] LABORATORYCLIA [id number] [address] OF [place] Lymphocytes (Bld) [#/Vol] 1.86 10*3/uL Normal 1.00-4.00 [facility] Comment on above: Order Comment: Speci men Type: BLOOD SPECIMENOrdering Facility: [facility] Address: [address] [place] [address] Performed By: #### 5 7021-8 ####[facility] LABORATORYCLIA [id number] [address] Lymphocytes/100 WBC (Bld) 25.3 % Normal [facility] Comment on above: Order Comment: Speci men Type: BLOOD SPECIMENOrdering Facility: [facility] Address: [address] [place] [address] Performed By: #### 5 7021-8 ####[facility] LABORATORYCLIA [id number] [address] [place] MCH (RBC) [Entitic mass] 29.5 pg Normal 26.0-34.0 [facility] Comment on above: Order Comment: Speci men Type: BLOOD SPECIMENOrdering Facility: [facility] Address: [address] [place] [address] Performed By: #### 5 7021-8 ####[facility] LABORATORYCLIA [id number] [address] [place] MCHC (RBC) [Mass/Vol] 32.6 g/dL Normal 30.5-36.0 [facility] Comment on above: Order Comment: Speci men Type: BLOOD SPECIMENOrdering Facility: [facility] Address: [address] [place] [address] Performed By: #### 5 7021-8 ####[facility] LABORATORYCLIA [id number] [place] [address] [place] MCV (RBC) [Entitic vol] 90.6 fL Normal 80.0-100.0 A [facility] Comment on above: Order Comment: Speci men Type: BLOOD SPECIMENOrdering Facility: [facility] Address: [address] [place] [address] Performed By: #### 5 7021-8 ####[facility] LABORATORYCLIA [id number] [address] [place] Monocytes (Bld) [#/Vol] 0.40 10*3/uL Normal <0.87 [facility] Comment on above: Order Comment: Speci men Type: BLOOD SPECIMENOrdering Facility: [facility] Address: [address] [place] [address] Performed By: #### 5 7021-8 ####[facility] LABORATORYCLIA [id number] [address] [place] Monocytes/100 WBC (Bld) 5.4 % Normal A [facility] Comment on above: Order Comment: Speci men Type: BLOOD SPECIMENOrdering Facility: [facility] Address: [address] [place] [address] Performed By: #### 5 7021-8 ####[facility] LABORATORYCLIA [id number] [place] [address] [place] Neutrophils (Bld) [#/Vol] 4.97 10*3/uL Normal 1.45-7.50 [facility] Comment on above: Order Comment: Speci men Type: BLOOD SPECIMENOrdering Facility: [facility] Address: [address] [place] [address] Performed By: #### 5 7021-8 ####[facility] LABORATORYCLIA [id number] [address] [place] Neutrophils/100 WBC (Bld) 67.8 % Normal [facility] Comment on above: Order Comment: Speci men Type: BLOOD SPECIMENOrdering Facility: [facility] Address: [address] [place] [address] Performed By: #### 5 7021-8 ####[facility] LABORATORYCLIA [id number] [address] OF [place] Nucleated RBC (Bld) [#/Vol] 10*3/uL Normal <0.01 [facility] Comment on above: Order Comment: Speci men Type: BLOOD SPECIMENOrdering Facility: [facility] Address: [address] [place] [address] Performed By: #### 5 7021-8 ####[facility] LABORATORYCLIA [id number] [address] OF [facility] Nucleated RBC/100 WBC (Bld) [Ratio] 0.0 /100 WBC Normal [facility] Comment on above: Order Comment: Speci men Type: BLOOD SPECIMENOrdering Facility: [facility] Address: [address] [place] [address] Performed By: #### 5 7021-8 ####[facility] LABORATORYCLIA [id number] [address] OF [place] Platelet mean volume (Bld) [Entitic vol] 10.6 fL Normal 9.0-12.7 [facility] Comment on above: Order Comment: Speci men Type: BLOOD SPECIMENOrdering Facility: [facility] Address: [address] [place] [address] Performed By: #### 5 7021-8 ####[facility] LABORATORYCLIA [id number] [address] OF [place] Platelets (Bld) [#/Vol] 155 10*3/uL Normal 150-400 [facility] Comment on above: Order Comment: Speci men Type: BLOOD SPECIMENOrdering Facility: [facility] Address: [address] [place] [address] Result Comment: No c lot detected. Performed By: #### 5 7021-8 ####[facility] LABORATORYCLIA [id number] [address] [place] RBC (Bld) [#/Vol] 4.91 10*6/uL Normal 3.90-5.20 [facility] Comment on above: Order Comment: Speci men Type: BLOOD SPECIMENOrdering Facility: [facility] Address: [address] [place] [address] Performed By: #### 5 7021-8 ####[facility] LABORATORYCLIA [id number] [address] [place] WBC (Bld) [#/Vol] 7.34 10*3/uL Normal 3.70-11.00 [facility] Comment on above: Order Comment: Speci men Type: BLOOD SPECIMENOrdering Facility: [facility] Address: [address] [place] [address] Performed By: #### 5 7021-8 ####[facility] LABORATORYCLIA [id number] [address] BRAIN WO IVCONon 06-14-[address] BRAIN WO IVCON * * *Final Report* * * DATE OF EXAM: Jun 14 2024 1:59PM [facility] 0504 - CT BRAIN WO IVCON / [...] ventriculostomy, similar to 2022. No overt hydrocephalus. Pbx Repairer: TERESA Transcribe Date/Time: Jun 14 2024 3:03P Dictated by : ONOFRE CRAFT MD This examination was interpreted and the report reviewed and electronically signed by: ONOFRE CRAFT MD on Jun 14 2024 3:12PM EST [id number] Normal [facility] Comprehensive metabolic 2000 panelon 06-14-2024 Albumin [Mass/Vol] 4.1 g/dL Normal 3.9-4.9 [facility] Comment on above: Order Comment: Speci men Type: BLOOD SPECIMENOrdering Facility: [facility] Address: [address] [place] [address] Performed By: #### 1 9123-9, 03449-6 ####[facility] LABORATORYCLIA [id number] [place] [address] [place] ALP [Catalytic activity/Vol] 77 U/L Normal 34-123 [facility] Comment on above: Order Comment: Speci men Type: BLOOD SPECIMENOrdering Facility: [facility] Address: [address] [place] [address] Performed By: #### 1 9123-9, 83210-6 ####[facility] LABORATORYCLIA [id number] [place] [address] [place] ALT With P-5'-P [Catalytic activity/Vol] 14 U/L Normal 7-38 [facility] Comment on above: Order Comment: Speci men Type: BLOOD SPECIMENOrdering Facility: [facility] Address: [address] [place] [address] Performed By: #### 1 9123-9, ####[facility] LABORATORYCLIA [id number] [place] [address] [place] Anion gap [Moles/Vol] 14 mmol/L Normal 8-15 [facility] Comment on above: Order Comment: Speci men Type: BLOOD SPECIMENOrdering Facility: [facility] Address: [address] [place] [address] Performed By: #### 1 9123-9, 85165-4 ####[facility] LABORATORYCLIA [id number] [place] [address] [place] AST With P-5'-P [Catalytic activity/Vol] 21 U/L Normal 13-35 [facility] Comment on above: Order Comment: Speci men Type: BLOOD SPECIMENOrdering Facility: [facility] Address: [address] [place] [address] Performed By: #### 1 23-9, ####[facility] LABORATORYCLIA [id number] [place] [address] [place] Bilirubin [Mass/Vol] 0.3 mg/dL Normal 0.2-1.3 [facility] Comment on above: Order Comment: Speci men Type: BLOOD SPECIMENOrdering Facility: [facility] Address: [address] [place] [address] Performed By: #### 1 9123-9, 88133-3 ####[facility] LABORATORYCLIA [id number] [place] [address] [place] Calcium [Mass/Vol] 9.2 mg/dL Normal 8.5-10.2 [facility] Comment on above: Order Comment: Speci men Type: BLOOD SPECIMENOrdering Facility: [facility] Address: [address] [place] [address] Performed By: #### 1 9123-9, 30872-9 ####[facility] LABORATORYCLIA [id number] [place] [address] [place] Chloride [Moles/Vol] 99 mmol/L Normal 98-107 [facility] Comment on above: Order Comment: Speci men Type: BLOOD SPECIMENOrdering Facility: [facility] Address: [address] [place] [address] Performed By: #### 1 9123-9, ####[facility] LABORATORYCLIA [id number] [address] OF [facility] CO2 [Moles/Vol] 19 mmol/L Low 22-30 [facility] Comment on above: Order Comment: Speci men Type: BLOOD SPECIMENOrdering Facility: [facility] Address: [address] [place] [address] Performed By: #### 1 23-9, ####[facility] [id number] [address] Creatinine [Mass/Vol] 0.69 mg/dL Normal 0.58-0.96 [facility] Comment on above: Order Comment: Speci men Type: BLOOD SPECIMENOrdering Facility: [facility] Address: [address] [place] [address] Performed By: #### 1 23-9, ####[facility] H[facility]ITAL[facility] [id number] [address] Creatinine and Glomerular filtration rate.predicted panel (S/P/Bld) 88 mL/min/1.73m??? Normal >=60 [facility] Comment on above: Order Comment: Speci men Type: BLOOD SPECIMENOrdering Facility: [facility] Address: [address] [place] [address] Result Comment: Anna mated Glomerular Filtration Rate [...] actual GFR. Performed By: #### 1 9123-9, 31945-2 ####[facility] LABORATORYCLIA [id number] [place] [address] [place] Glucose [Mass/Vol] 76 mg/dL Normal 74-99 [facility] Comment on above: Order Comment: Fredy men Type: BLOOD SPECIMENOrdering Facility: [facility] Address: [address] [place] [address] Result Comment: [place] Diabetes Association (ADA) provides guidance for cutoff [...] Standards of Medical Care in Diabetes 2016, [place] Diabetes Association. Diabetes Care. 2016.39(Suppl 1). Performed By: #### 1 9123-9, 78692-8 ####[facility] LABORATORYCLIA [id number] [place] [address] [place] Potassium [Moles/Vol] 4.2 mmol/L Normal 3.7-5.1 [facility] Comment on above: Order Comment: Fredy nile Type: BLOOD SPECIMENOrdering Facility: [facility] Address: [address] [place] [address] Performed By: #### 1 9123-9, 03962-6 ####[facility] LABORATORYCLIA [id number] [place] [address] [place] Protein [Mass/Vol] 7.2 g/dL Normal 6.3-8.0 [facility] Comment on above: Order Comment: Fredy nile Type: BLOOD SPECIMENOrdering Facility: [facility] Address: [address] [place] [address] Performed By: #### 1 9123-9, 88047-2 ####[facility] LABORATORYCLIA [id number] [place] [address] [place] Sodium [Moles/Vol] 132 mmol/L Low 136-144 [facility] Comment on above: Order Comment: Speci men Type: BLOOD SPECIMENOrdering Facility: [facility] Address: [address] [place], [place] [address] Performed By: #### 1 9123-9, 74553-7 ####[facility] LABORATORYCLIA [id number] [place] [id number] [facility] Urea nitrogen [Mass/Vol] 18 mg/dL Normal 7-21 [facility] Comment on above: Order Comment: Speci men Type: BLOOD SPECIMENOrdering Facility: [facility] Address: [address] [place] [address] Performed By: #### 1 9123-9, 91187-7 ####[facility] LABORATORYCLIA [id number] [place] [id number] [facility] ECG COMPLETEon 06-14-2024 ECG COMPLETE Ventricular Rate : 8 2 BPM Atrial Rate : 82 BPM P-R Interval : 156 ms QRS Duration : 72 ms Q-T Interval : 364 ms QTC Calculation(Bazett) : 425 ms Calculated P [employer] : 37 degrees Calculated R [employer] : -17 degrees Calculated T [employer] : 18 degrees NORMAL SINUS RHYTHM CANNOT RULE OUT ANTERIOR INFARCT , AGE UNDETERMINED ABNORMAL ECG NO PREVIOUS ECGS AVAILABLE Confirmed by MD BERTRAND CAROL ([id number]) on 12/10/2024 1:29:51 PM NAME : CHRISTIAN SUGGS PID : [id number] : 1945 Gender : Female Race : ORD : [id number] Procedure Date : Jun 14 2024 13:05:24 Edit Date : Dec 10 2024 13:29:54 Diagnosis: NORMAL SINUS RHYTHM CANNOT RULE OUT ANTERIOR INFARCT , AGE UNDETERMINED ABNORMAL ECG NO PREVIOUS ECGS AVAILABLE Confirmed by MD BERTRAND CAROL ([id number]) on 12/10/2024 1:29:51 PM Test Reason : Chest Pain Location : 4 : [facility] Overread By : MD BERTRAND CAROL Edited By : MD BERTRAND CAROL Referred By : , Acquired by : ROSALINA EDWARD [facility] ED NOTEon 06-14-2024 ED NOTE HNO ID: [id number] Author: BRODERICK IBARRA Tech Service: ? Author Type: Food Clerk Type: ED Notes Filed: 06/14/2024 16:52 Note Text: 2nd trop drawn and sent. Normal [facility] ED Triage Noteon 06-14-2024 ED Triage Note HNO ID: [id number] Author: CARYN ZAIDI APRN.CNP Service: Emergency Medicine [...] more swollen. Shunt was placed here at [place] was recently seen in [place] and diagnosed with vertigo. Patient denies chest [...] Culture ECG COMPLETE EKG SIGNATURE: Caryn Zaidi APRN.DATA COMMUNICATIONS ANALYST Normal [facility] HIGH SENSITIVITY TROPONIN T (INITIAL)on 06-14-2024 Troponin T.cardiac High sensitivity method [Mass/Vol] 17 ng/L High <12 [facility] Comment on above: Order Comment: Speci men Type: BLOOD SPECIMENOrdering Facility: [facility] Address: [address] [place] [address] Performed By: #### L [id number] ####[facility] LABORATORYCLIA [id number] [address] STATES OF [facility] HIGH SENSITIVITY TROPONIN T (SECOND)on 06-14-2024 Troponin T.cardiac High sensitivity method [Mass/Vol] 17 ng/L High <12 [facility] Comment on above: Order Comment: Speci men Type: BLOOD SPECIMENOrdering Facility: [facility] Address: [address] [place] [address] Performed By: #### L [id number] ####[facility] LABORATORYCLIA [id number] [address] HIGH SENSITIVITY TROPONIN T (THIRD) 3 HRS AFTER INITIALon 06-14-2024 Troponin T.cardiac High sensitivity method [Mass/Vol] 16 ng/L High <12 [facility] Comment on above: Order Comment: Speci men Type: BLOOD SPECIMENOrdering Facility: [facility] Address: [address] [place] [address] Performed By: #### L [id number] ####[facility] LABORATORYCLIA [id number] [place] [address] [facility] OF [place] Magnesium SerPl-mCncon 06-14 Magnesium [Mass/Vol] 2.2 mg/dL Normal 1.7-2.3 [facility] Comment on above: Order Comment: Speci men Type: BLOOD SPECIMENOrdering Facility: [facility] Address: [address] [place] [address] Performed By: #### 1 9123-9, 89864-7 ####[facility] LABORATORYCLIA [id number] [address] Urinalysis complete panel (U )on 06-14-2024 Bacteria LM.HPF (Urine sed) [#/Area] Few Abnormal None Seen [facility] Comment on above: Order Comment: Speci men Type: URINE SPECIMENOrdering Facility: [facility] Address: [address] [place] [address] Performed By: #### 6 30-4, 86228-1 ####[facility] LABORATORYCLIA [id number] [address] Bilirubin Ql (U) Negative Normal Negative [facility] Comment on above: Order Comment: Speci men Type: URINE SPECIMENOrdering Facility: [facility] Address: [address] [place] [address] Performed By: #### 6 30-4, 38782-0 ####[facility] LABORATORYCLIA [id number] [address] Clarity (Unsp spec) Turbid Abnormal Clear [facility] Comment on above: Order Comment: Speci men Type: URINE SPECIMENOrdering Facility: [facility] Address: [facility] [place] [address] Performed By: #### 6 30-4, 81763-9 ####[facility] LABORATORYCLIA [id number] [place], [place] [id number] [place] [address] [place] Color (U) Light [place] Abnormal yellow [facility] Comment on above: Order Comment: Speci men Type: URINE SPECIMENOrdering Facility: [facility] Address: [address] [place] [address] Performed By: #### 6 30-4, 90970-1 ####[facility] LABORATORYCLIA [id number] [address] Epithelial cells LM.HPF (Urine sed) [#/Area] Few Normal [facility] Comment on above: Order Comment: Speci men Type: URINE SPECIMENOrdering Facility: [facility] Address: [address] [place] [address] Result Comment: Few Performed By: #### 6 30-4, 21871-3 ####[facility] LABORATORYCLIA [id number] [address] Glucose Test strip (U) [Mass/Vol] Negative Normal Trace, Negative [facility] Comment on above: Order Comment: Speci men Type: URINE SPECIMENOrdering Facility: [facility] Address: [address] [place] [address] Performed By: #### 6 30-4, 31006-4 ####[facility] LABORATORYCLIA [id number] [place], [place] [address] [place] [address] [place] Hemoglobin Ql (U) Negative Normal Negative, Trace [facility] Comment on above: Order Comment: Speci men Type: URINE SPECIMENOrdering Facility: [facility] Address: [address] [place] [address] Performed By: #### 6 30-4, 22812-9 ####[facility] LABORATORYCLIA [id number] [address] Ketones Ql (U) 1+ Abnormal Negative, Trace [facility] Comment on above: Order Comment: Speci men Type: URINE SPECIMENOrdering Facility: [facility] Address: [address] [place] [address] Performed By: #### 6 30-4, 50541-8 ####[facility] LABORATORYCLIA [id number] [address] Leukocyte esterase Test strip Ql (U) 500 Neto/uL Abnormal Negative, 25 Neto/uL [facility] Comment on above: Order Comment: Speci men Type: URINE SPECIMENOrdering Facility: [facility] Address: [address] [place] [address] Performed By: #### 6 30-4, 97708-4 ####[facility] LABORATORYCLIA [id number] [address] STATES [facility] Nitrite Ql (U) 2+ Abnormal Negative [facility] Comment on above: Order Comment: Speci men Type: URINE SPECIMENOrdering Facility: [facility] Address: [address] [place] [address] Performed By: #### 6 30-4, 05501-5 ####[facility] LABORATORYCLIA [id number] [address] [place] pH (U) 8.0 [pH] Normal 5.0-8.0 [facility] Comment on above: Order Comment: Speci men Type: URINE SPECIMENOrdering Facility: [facility] Address: [address] [place] [address] Performed By: #### 6 30-4, 64479-9 ####[facility] LABORATORYCLIA [id number] [address] [place] Protein (U) [Mass/Vol] Trace Normal Trace , Negative [facility] Comment on above: Order Comment: Speci men Type: URINE SPECIMENOrdering Facility: [facility] Address: [address] [place] [address] Performed By: #### 6 30-4, 50211-3 ####[facility] LABORATORYCLIA [id number] [place] [address] [place] RBC LM.HPF (Urine sed) [#/Area] 3-5 /HPF Abnormal 0-3 /HPF [facility] Comment on above: Order Comment: Speci men Type: URINE SPECIMENOrdering Facility: [facility] Address: [address] [place] [address] Performed By: #### 6 30-4, 86031-4 ####[facility] LABORATORYCLIA [id number] [address] OF [place] Specific gravity (U) [Rel density] 1.011 Normal 1.005-1.030 [facility] Comment on above: Order Comment: Speci men Type: URINE SPECIMENOrdering Facility: [facility] Address: [address] [place] [address] Performed By: #### 6 30-4, 97033-9 ####[facility] LABORATORYCLIA [id number] [address] Triple phosphate crystals LM.HPF (Urine sed) [#/Area] Few Abnormal None Seen [facility] Comment on above: Order Comment: Speci men Type: URINE SPECIMENOrdering Facility: [facility] Address: [address] [place] [address] Performed By: #### 6 30-4, 92645-0 ####[facility] LABORATORYCLIA [id number] [address] Urobilinogen Ql (U) Normal Normal Normal [facility] Comment on above: Order Comment: Speci men Type: URINE SPECIMENOrdering Facility: [facility] Address: [address] [place] [address] Performed By: #### 6 30-4, 80557-2 ####[facility] LABORATORYCLIA [id number] [address] WBC LM.HPF (Urine sed) [#/Area] 11-25 /HPF Abnormal 0-5 /HPF [facility] Comment on above: Order Comment: Speci men Type: URINE SPECIMENOrdering Facility: [facility] Address: [address] [place] [address] Performed By: #### 6 30-4, 53003-4 ####[facility] LABORATORYCLIA [id number] [place] [id number] [facility] XR CHEST 2V FRONTAL/LATon XR CHEST 2V [...] fusion hardware IMPRESSION: No acute radiographic abnormality. Pbx Repairer: PSCB Transcribe Date/Time: Jun 14 2024 2:48P Dictated by : SOFIA CAMEJO MD This examination was interpreted and the report reviewed and electronically signed by: SOFIA CAMEJO MD on Jun 14 2024 2:49PM EST [id number] Normal [facility] XR LEVELMAN SHUNT SERIES 5V -NBon 06-14-2024 XR LEVELMAN SHUNT SERIES 5V -NB * * *Final Report* * * DATE OF EXAM: Jun 14 2024 2:00PM AKX [id number] - XR LEVELMAN SHUNT SERIES 5V -NB / PROCEDURE REASON: Post operative assessment * * * * Physician Interpretation * * * * LEVELMAN SHUNT SERIES CLINICAL INDICATION: Nausea and vomiting [...] without discontinuity or kinking in the tubing. Pbx Repairer: PSCB Transcribe Date/Time: Jun 14 2024 2:19P Dictated by : KRISTINA HARRISON MD This examination was interpreted and the report reviewed and electronically signed by: KRISTINA HARRISON MD on Jun 14 2024 2:26PM EST [id number] Normal [facility] ED NOTEon 06-13-2024 ED NOTE HNO ID: [id number] Author: CARLOS GARCIA RN Service: Emergency Medicine Author Type: Registered Nurse Type: ED Notes Filed: 06/13/2024 00:23 Note Text: Patient requests to go home. She is alert, talkative, no distress noted. WC to bathroom with assistance. Patient recommended to allow her to help her at home to avoid falls. Patient again given opportunity to stay, she declines. Patient and instructed to pickle sorter scrip for meclizine tomorrow. Patient instructed to follow up with PCP, return with any new, worsening, or recurrent symptoms. Verbalizes understanding of all instructions. WC to vehicle, no distress. Normal [facility] Basic metabolic 2000 panelon 06-12-2024 Anion gap [Moles/Vol] 12 mmol/L Normal 8-15 [facility] Comment on above: Order Comment: Speci men Type: BLOOD SPECIMENOrdering Facility: [facility] Address: [address] [place] [address] Performed By: #### 2 4321-2, 98954-1 ####[facility] LABCLIA [id number] [place] [address] [place] Calcium [Mass/Vol] 9.6 mg/dL Normal 8.5-10.2 [facility] Comment on above: Order Comment: Speci men Type: BLOOD SPECIMENOrdering Facility: [facility] Address: [address] [place] [address] Performed By: #### 2 4321-2, ####[facility] LABCLIA [id number] [facility] [place] [address] [place] Chloride [Moles/Vol] 104 mmol/L Normal 98-107 [facility] Comment on above: Order Comment: Speci men Type: BLOOD SPECIMENOrdering Facility: [facility] Address: [address] [place] [address] Performed By: #### 2 4321-2, ####[facility] LABCLIA [id number] [facility] [place] [address] [place] CO2 [Moles/Vol] 23 mmol/L Normal 22-30 [facility] Comment on above: Order Comment: Speci men Type: BLOOD SPECIMENOrdering Facility: [facility] Address: [address] [place] [address] Performed By: #### 2 4321-2, ####[facility] LABCLIA [id number] [place] [address] [place] Creatinine [Mass/Vol] 0.67 mg/dL Normal 0.58-0.96 [facility] Comment on above: Order Comment: Speci men Type: BLOOD SPECIMENOrdering Facility: [facility] Address: [address] [place] [address] Performed By: #### 2 4321-2, ####[facility] LABCLIA [id number] [place] [address] [place] Creatinine and Glomerular filtration rate.predicted panel (S/P/Bld) 88 mL/min/1.73m??? Normal >=60 [facility] Comment on above: Order Comment: Speci men Type: BLOOD SPECIMENOrdering Facility: [facility] Address: [address] [place] [address] Result Comment: Anna mated Glomerular Filtration Rate [...] reflect actual GFR. Performed By: #### 2 432-, ####[facility] LABCLIA [id number] [place] [address] [place] Glucose [Mass/Vol] 115 mg/dL High 74-99 [facility] Comment on above: Order Comment: Fredy dowd Type: BLOOD SPECIMENOrdering Facility: [facility] Address: [address] [place] [address] Result Comment: The [place] Diabetes Association (ADA) provides guidance for cutoff [...] Standards of Medical Care in Diabetes 2016, [place] Diabetes Association. Diabetes Care. 2016.39(Suppl 1). Performed By: #### 2 432-, ####[facility] LABCLIA [id number] [place] [address] [place] Potassium [Moles/Vol] 3.8 mmol/L Normal 3.7-5.1 [facility] Comment on above: Order Comment: Fredy dowd Type: BLOOD SPECIMENOrdering Facility: [facility] Address: [address] [place] [address] Performed By: #### 2 432-, ####[facility] LABCLIA [id number] [place] [address] [place] [facility] Sodium [Moles/Vol] 139 mmol/L Normal 136-144 [facility] Comment on above: Order Comment: Speci men Type: BLOOD SPECIMENOrdering Facility: [facility] Address: [address] [place] [address] Performed By: #### 2 4321-2, 94570-6 ####[facility] LABCLIA [id number] [place] [address] [place] Urea nitrogen [Mass/Vol] 11 mg/dL Normal 7-21 [facility] Comment on above: Order Comment: Speci men Type: BLOOD SPECIMENOrdering Facility: [facility] Address: [address] [place] [address] Performed By: #### 2 4321-2, ####[facility] LABCLIA [id number] [place] [address] [place] CBC W Auto Differential pane l (Bld)on 06-12-2024 Basophils (Bld) [#/Vol] 10*3/uL Normal <0.11 [facility] Comment on above: Order Comment: Speci men Type: BLOOD SPECIMENOrdering Facility: [facility] Address: [address] [place] [address] Performed By: #### 5 7021-8 ####[facility] LABCLIA [id number] [place] [address] [place] Basophils/100 WBC (Bld) 0.3 % Normal A [facility] Comment on above: Order Comment: Speci men Type: BLOOD SPECIMENOrdering Facility: [facility] Address: [address] [place] [address] Performed By: #### 5 7021-8 ####[facility] LABCLIA [id number] [place] [address] [facility] Differential cell count method Nom (Bld) Auto Normal [facility] Comment on above: Order Comment: Speci men Type: BLOOD SPECIMENOrdering Facility: [facility] Address: [address] [place] [address] Performed By: #### 5 7021-8 ####[facility] LABCLIA [id number] [facility] [place] [address] [place] Eosinophils (Bld) [#/Vol] 0.03 10*3/uL Normal <0.46 [facility] Comment on above: Order Comment: Speci men Type: BLOOD SPECIMENOrdering Facility: [facility] Address: [address] [place] [address] Performed By: #### 5 7021-8 ####[facility] LABCLIA [id number] [facility] [place] [address] [facility] OF [place] Eosinophils/100 WBC (Bld) 0.5 % Normal [facility] Comment on above: Order Comment: Speci men Type: BLOOD SPECIMENOrdering Facility: [facility] Address: [address] [place] [address] Performed By: #### 5 7021-8 ####[facility] LABCLIA [id number] [facility] [place] [address] [place] Erythrocyte distribution width (RBC) [Ratio] 14.5 % Normal 11.5-15.0 [facility] Comment on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 [facility] Protein [Mass/Vol] 7.1 g/dL 6.4-8.2 [facility] Sodium [Moles/Vol] 141 mmol/L 136-145 [facility] WBC (Bld) [#/Vol] 5.7 10*3/uL 4.4-11.0 [facility] Determination of erythrocyte mean corpuscular volume (MCV)Ordered By: Lilo Grullon on 10-31-2023 MCV (RBC) [Entitic vol] 87.5 fL 81-99 [facility] Erythrocyte distribution wid th ratioOrdered By: Lilo Grullon on 10-31-2023 Erythrocyte distribution width (RBC) [Ratio] 14.6 % 11.6-14.6 [facility] Erythrocyte distribution wid th standard deviationOrdered By: Lilo Grullon on 10-31-2023 Erythrocyte distribution width (RBC) [Entitic vol] 47.1 fL 35.1-43.9 [facility] Hematocrit Auto (Bld) [Volum e fraction]Ordered By: Lilo Grullon on 10-31-2023 Hematocrit (Bld) [Volume fraction] 42.8 % 37-47 [facility] Immature granulocytes/100 WB C Auto (Bld)Ordered By: Lilo Grullon on 10-31-2023 Immature granulocytes/100 WBC (Bld) 0.200 % 0.0-0.9 [facility] Comment on above: IG% - Immature Granu locytes (promyelocytes, myelocytes and metamyelocytes) > 1% indicates that a LEFT SHIFT is Present. Laboratory - Chemistry and C hemistry - challengeOrdered By: Lilo Grullon on 10-31-2023 Albumin/Globulin [Mass ratio] 0.9 {ratio} 0.9-2.4 [facility] ALP [Catalytic activity/Vol] 63 U/L 45-117 [facility] ALT [Catalytic activity/Vol] 17 U/L 13-56 [facility] CO2 [Moles/Vol] 31.0 mmol/L 21.0-32.0 [facility] Globulin (S) [Mass/Vol] 3.7 g/dL 2.2-4.2 [facility] Urea nitrogen/Creatinine [Mass ratio] 13.1 mg/mg 10-20 [facility] Laboratory - Hematology and Cell countsOrdered By: Lilo Grullon on 10-31-2023 MCH (RBC) [Entitic mass] 28.0 pg 27.0-32.0 [facility] MCHC (RBC) [Mass/Vol] 32.0 g/dL 32-36 [facility] Nucleated RBC/100 WBC (Bld) [Ratio] 0 % 0-5 [facility] Platelet mean volume (Bld) [Entitic vol] 10.8 fL 6.2-12.0 [facility] Platelets (Bld) [#/Vol] 219 10*3/uL 150-450 [facility] No Panel InformationOrdered By: Lilo Grullon on 10-31-2023 Estimated GFR (MDRD) Amer 76 mL/min >60 [facility] Comment on above: GFR Calc Estimated GFR (MDRD) Non-Af Amer 63 mL/min >60 [facility] Comment on above: Non- GFR Calc RBC Auto (Bld) [#/Vol]Ordere d By: Lilo Grullon on 10-31-2023 RBC (Bld) [#/Vol] 4.89 10*6/uL 4.2-5.4 [facility] Serum or plasma calcium ana laura urement (mass/volume)Ordered By: Lilo Grullon on 10-31-2023 Calcium [Mass/Vol] 9.6 mg/dL 8.5-10.1 [facility] Serum or plasma creatinine m easurement (mass/volume)Ordered By: Lilo Grullon on 10-31-2023 Creatinine [Mass/Vol] 0.91 mg/dL 0.55-1.02 [facility] Comment on above: The validity of the calculated GFR & GFRAA in patients over 70 years has not been determined. Clinical correlation is essential. Serum or plasma thyroid stim ulating hormone (TSH) measurement (units/volume)Ordered By: Lilo Grullon on 10-31-2023 TSH Qn 1.87 uIU/mL 0.358-3.74 [facility] Serum or plasma urea nitroge n measurement (mass/volume)Ordered By: Lilo Grullon on 10-31-2023 Urea nitrogen [Mass/Vol] 12 mg/dL 7-18 [facility] Thin prep Papanicolaou smear with manual screeningOrdered By: Lilo Grullon on 10-31-2023 Thin prep Papanicolaou smear with manual screening 3.4 g/dL 3.2-5.0 [facility] Thin prep Papanicolaou smear with manual screening 19 U/L 15-37 [facility] Thin prep Papanicolaou smear with manual screening 3 5-15 [facility] Basophil percentageOrdered B y: Silver Ruggiero on 04-01-2023 Sodium [Moles/Vol] 142 mmol/L 136-[address] [facility] [address] BRAIN WO IVCONon 12-21-[address] [facility] [address] BRAIN WO IVCONon 10-31-19 23 [facility] Basic metabolic 2000 panelon 10-03-2022 Anion gap [Moles/Vol] 8 mmol/L Low 9 - 18 mmol/L [facility] Calcium [Mass/Vol] 9.8 mg/dL 8.5 - 10. 2 mg/dL [facility] Chloride [Moles/Vol] 104 mmol/L 97 - 10 5 mmol/L [facility] CO2 [Moles/Vol] 27 mmol/L 22 - 30 mmol/L [facility] Creatinine [Mass/Vol] 0.82 mg/dL 0.58 - 0.96 mg/dL [facility] Estimated Glomerular Filtration Rate 73 mL/min/1.73m >=60 mL/min/1.73m [facility] Glucose [Mass/Vol] 93 mg/dL 74 - 99 mg/dL [facility] Potassium [Moles/Vol] 3.9 mmol/L 3.7 - 5.1 mmol/L [facility] Sodium [Moles/Vol] 139 mmol/L 136 - 144 mmol/L [facility] Urea nitrogen [Mass/Vol] 23 mg/dL High 7 - 21 mg/d L [facility] CBC panel Auto (Bld)on 10-03 Erythrocyte distribution width (RBC) [Ratio] 15.3 % High 11.5 - 15.0 % [facility] Hematocrit (Bld) [Volume fraction] 40.6 % 36.0 - 46.0 % [facility] Hemoglobin (Bld) [Mass/Vol] 13.0 g/dL 11.5 - 15.5 g/dL [facility] MCH (RBC) [Entitic mass] 28.6 pg 26. 0 - 34.0 pg [facility] MCHC (RBC) [Mass/Vol] 32.0 g/dL 30.5 - 36.0 g/dL [facility] MCV (RBC) [Entitic vol] 89.2 fL 80.0 - 100.0 fL [facility] Nucleated RBC (Bld) [#/Vol] <0.01 k/uL [facility] Platelet mean volume (Bld) [Entitic vol] 10.1 fL 9.0 - 12.7 fL [facility] Platelets (Bld) [#/Vol] 189 10*3/uL 150 - 400 k/uL [facility] RBC (Bld) [#/Vol] 4.55 10*6/uL 3.90 - 5.2 0 m/uL [facility] WBC (Bld) [#/Vol] 5.63 10*3/uL 3.70 - 11. 00 k/uL [facility] TYPE AND SCREEN,30 DAYon ABO A [facility] HIstorical Ab Scr Status Negative [facility] Rh Nom (Bld) Positive [facility] Bacterial cerebrospinal flui d cultureOrdered By: Dr. Ruggiero on 09-14-2022 Bacteria identified Cx Nom (CSF) No growth in 72 hours. [facility] Cerebrospinal fluid appearan ce descriptionOrdered By: Dr. Ruggiero on 09-10-2022 Appearance (CSF) CLEAR Clear [facility] Cerebrospinal fluid cell cou ntOrdered By: Dr. Ruggiero on 09-10-2022 Cell count panel (CSF) Not Reportable [facility] Cerebrospinal fluid color id entificationOrdered By: Dr. Ruggiero on 09-10-2022 Color (CSF) COLORLESS Colorless [facility] Cerebrospinal fluid glucose measurement (mass/volume)Ordered By: Dr. Ruggiero on 09-10-2022 Glucose (CSF) [Mass/Vol] 54 mg/dL 40-75 [facility] Cerebrospinal fluid reagin a ntibody detectionOrdered By: Dr. Ruggiero on 09-10-2022 Reagin Ab Ql (CSF) Non-Reactive Non [place]:<1:1 [facility] Comment on above: Performed at: [address] [id number] Director: Lucio Khan MD, Phone: [phone] Cerebrospinal fluid white bl ood cell countOrdered By: Dr. Ruggiero on 09-10-2022 WBC (CSF) [#/Vol] 0 /mm-3 0-5 [facility] Comment on above: NO CELLS SEEN ON CYT OSPIN. Cytology report of Body flui d Cyto stainOrdered By: Dr. Ruggiero on 09-10-2022 Cytology report Cyto stain Doc (Body fld) SEE PATHOLOGY REPORT [facility] Comment on above: Specimen submitted t o Anatomical Pathology Department for testing. Gram stain for investigation of transfusion reactionOrdered By: Dr. Ruggiero on 09-10-2022 Microscopic observation Gram stain Nom (Unsp spec) [facility] Laboratory - Specimen inform ationOrdered By: Dr. Ruggiero on 09-10-2022 Tube number Nom (CSF) [ID] 3 [facility] No Panel InformationOrdered By: Dr. Ruggiero on 09-10-2022 CSF RBC 4 /mm-3 None seen [facility] CSF Total Protein 42.0 mg/dL 15.0-45.0 [facility] Review by pathologistOrdered By: Dr. Ruggiero on 09-10-2022 Pathologist review Amos (Unsp spec) [Interp] Reviewed [facility] Comment on above: Previous reported re sult: May follow Edited by: RGOOD on 09/11/22:1320Negative for malignant cells.Rare RBCs are noted.Duane Lara M.D. 09/11/22 AMENDED REPORT 09/11/22 1320 PATH REV previously reported as: May follow ANES POSTPROC EVALon 023 ANES POSTPROC EVAL HNO ID: [id number] Author: Anup Zeng MD Service: ? Author Type: Anesthesiologist Type: Anesthesia Postprocedure Evaluation Filed: 09/05/2022 10:21 AM Note Text: POST ANESTHESIA EVALUATION NOTE : 1945 Procedure Summary Date: 09/05/22 Room / Location: [facility] [place] Anesthesia Start: 844 Anesthesia Stop: 955 [...] September 05, 2022 TIME: 10:19 AM CSN: [id number] [facility] ANES PRE-OPon 09-05-2022 ANES PRE-OP HNO ID: [id number] Author: Anup Zeng MD Service: ? Author Type: Anesthesiologist Type: Anesthesia Preprocedure Evaluation Filed: 09/05/2022 8:44 AM Note Text: ANESTHESIOLOGY DAY OF SURGERY NOTE : 1945 Procedure Information Date/Time: 09/05/22829 Procedure: HYSTEROSCOPY W/ POLYPECTOMY W/ DANDC (Uterus) Location: [facility]05 / [place] Surgeons: Faby Santana MD Estimated body [...] and consent discussed: yes. Patient / Responsible Democrat agrees to proceed: yes Patient / Surrogate [...] September 05, 2022 TIME: 8:43 AM CSN: [id number] [facility] OPERATIVE NOon 09-05-2022 OPERATIVE NO HNO ID: [id number] Author: Faby Santana MD Service: Gynecology Author Type: Physician Type: Operative Report Filed: 09/05/2022 10:14 AM Note Text: SVP CHIEF MARKETING OFFICER OPERATIVE/PROCEDURE REPORT LOG ID: [id number] Surgery/Procedure Date: 09/05/2022 Incision/Procedure Start Time: 8:57 AM Incision Close/Procedure End Time: 9:49 AM Surgeon(s)/Proceduralis t(s) and Manager Food Beverage(s): Surgeon(s) and Role: * Faby Santana MD [...] majority of the resection. Faby Santana MD [facility] SURGICAL PATHOLOGYon 023 CASE REPORT [facility] Comment on above: Order Comment: Speci men Type: TISSUE SPECIMEN Ordering Facility: [facility] Address: [address] [place] [id number] Result Comment: Surg [facility] Pathology Report Case: [id number] Authorizing Provider: Faby Santana MD Collected: 09/05/2022 10:13 AM Ordering Location: [facility] Surgery Received: 09/05/2022 10:51 AM Pathologist: Camilla Pollack MD Specimen: ENDOMETRIUM POLYP, endometrium polyp or fibroid and endometrium curettings Performed By: #### S #### [facility] CLIA [id number] CLINICAL HISTORY Normal [facility] Comment on above: Order Comment: Speci men Type: TISSUE SPECIMEN Ordering Facility: [facility] Address: [address] [place] [address] Result Comment: Pre- op diagnosis: Endometrial polyp [N84.0] Performed By: #### S #### [facility] CLIA [id number] [address] [place] [address] FINAL DIAGNOSIS Normal [facility] Comment on above: Order Comment: Speci men Type: TISSUE SPECIMEN Ordering Facility: [facility] Address: [address] [place] [address] Result Comment: Endo metrium, polypectomy: Fragments of leiomyomas. Scant fragments of endometrial polyp. Performed By: #### S #### [facility] CLIA [id number] [address] [place] [address] FINAL PERFORMING LAB Normal [facility] Comment on above: Order Comment: Speci men Type: TISSUE SPECIMEN Ordering Facility: [facility] Address: [address] [place] [address] Result Comment: Diag nostic interpretation performed at [facility], [address] [place] [address] CLIA# [id number] Lead Radiation Therapist: Fernando Briones M.D. Performed By: #### S #### [facility] CLIA [id number] [address] [place] [address] GROSS DESCRIPTION Normal [facility] Comment on above: Order Comment: Speci men Type: TISSUE SPECIMEN Ordering Facility: [facility] Address: [address] [place] [address] Result Comment: A. E NDOMETRIUM POLYP Received in formalin in a suction apparatus are multiple garza-pink, soft feathery segments of tissue aggregating to 12.5 x 2.3 x 0.5 cm. Totally submitted in five cassettes. LLL September 05, 2022 2:16 PM Gross examination preformed at [facility], [address] [place] [address] Performed By: #### S #### [facility] CLIA [id number] [address] [place] [address] [place] [address] [place] HISTORY PHYSICALon 3 HISTORY PHYSICAL HNO ID: [id number] Author: Shawnee Santillan PA-C Service: ? Author Type: Physician Manager Food Beverage Type: HANDP Filed: 08/28/2022 4:06 PM Note [...] manage findings. Procedure scheduled on 09/05/2022 at [place]. REVIEW OF SYSTEMS: General: No weight loss, [...] arrhythmia, atrial fibrillation, CAD, CHF, hypertension, recent CA and murmur/valvular heart disease. GI: +Lymphocytic colitis - on budesonide, follows with GI, Friend. Positive for: GERD Negative for: hepatitis, liver disease and ETOH >2 drinks/day. : +Urinary retention - on Flomax, has indwelling catheter, has appt with urology on 09/03/22. Positive for: indwelling catheter. Negative for: hematuria and renal failure. SVP CHIEF MARKETING OFFICER: See HPI. Endocrine: No history of diabetes. [...] daily. Aleksandr (more content not included)... Normal [facility] CNOVon 08-21-2022 CNOV Office Visit (OBGYWM ) CHRISTIAN SUGGS ([id number]) 1945 F Date Time Provider Department 08/21/22 9:20 AM FABY SANTANA OBALYSIA During your visit today, we recorded the following information about you: Pulse Blood pressure Weight Height 86/minute 122/68 78 kg 1.657 m Faby Santana MD 08/22/2022 1:09 PM Signed Pre-Op History and Physical HPI: The patient is a 76 year old female presenting for pre-operative visit. She is scheduled for Hysteroscopy [facility] with polyp resection, for endometrial polyp on [...] her bladder (more content not included)... Normal [facility] HISTORY PHYSICALon HISTORY PHYSICAL HNO ID: [id number] Author: Faby Santana MD Service: ? Author [...] history, medications and allergies Faby Santana M.D. [facility] 08-09-2022 SONAM Telephone (OBGYWM) CHRISTIAN SUGGS ([id number]) 1945 F Date Time Provider Department 08/09/22 FABY SANTANA OBGYWGabriella During your visit today, we recorded the following information about you: Sara Roberts LPN 08/09/2022 1:17 PM Signed Patient is scheduled for surgery at [facility] on 09/05/2022. Please approve surgical order Allergies [...] polyp [N84.0] Order(s):SURGICAL REQUEST - ELECTIVE (02/2020) [[id number]] Order #: [id number]: 1 Prescriptions as of 08/12/2022 - tamsulosin [...] 06/06/2011 Spinal stenosis [M48.00] 06/06/2011 Compression fracture [RON8119] 06/06/2011 Seasonal allergies [J30.2] 06/06/2011 GERD (gastroesophageal [...] Encounter Status:Closed by F[facility] ) CHRISTIAN SUGGS ([id number]) 1945 F Date Time Provider Department 08/05/22 9:20 AM FABY SANTANA OBGYWM During your visit today, we recorded the following information about you: Blood pressure 130/72 Faby Santana MD 08/05/2022 11:36 AM Signed Christian Suggs presents for hysteroscopy. Indication: endometrial mass found on imaging. Denies vaginal bleeding. Wears a catheter chronically. here w/ and daughter who is RN at [employer]. Age: [age] year old LMP: No [...] Other Visit Diagnosis:Endometrial mass [N94.89] Order(s):SURGICAL PATHOLOGY [[id number]] Order #: [id number]. #:[id number] Prescriptions as of 08/05/2022 - tamsulosin (FLOMAX) [...] mg capsule (more content not included)... Normal [facility] SURGICAL PATHOLOGYon 023 CASE REPORT Normal [facility] Comment on above: Order Comment: Speci men Type: TISSUE SPECIMENOrdering Facility: [facility] Address: [address] [place] [address] Result Comment: Surg ical Pathology Report Case: [id number] Authorizing Provider: Faby Santana MD Collected: 08/05/2022 11:34 AM Ordering Location: OB/Gynecology Received: 08/05/2022 01:55 PM Pathologist: Lorene Jimenez MD Specimen: ENDOMETRIUM BIOPSY Performed By: #### S ####[facility] [id number] [address] [place] CLINICAL HISTORY endometrial mass Normal [facility] Comment on above: Order Comment: Speci men Type: TISSUE SPECIMENOrdering Facility: [facility] Address: [address] [place] [address] Performed By: #### S ####[facility] LABIA [id number] [address] DIAGNOSIS COMMENT Normal [facility] Comment on above: Order Comment: Speci men Type: TISSUE SPECIMENOrdering Facility: [facility] Address: [address] [place] [address] Result Comment: Endo metrium curetting is recommended due to the superficial nature of this specimen, if clinically indicated. Performed By: #### S ####[facility] [id number] [address] FINAL DIAGNOSIS Normal [facility] Comment on above: Order Comment: Speci men Type: TISSUE SPECIMENOrdering Facility: [facility] Address: [address] [place] [address] Result Comment: A. E ndometrium, biopsy: - Superficial strips of benign endometrium, see comment. Performed By: #### S ####[facility]IA [id number] [address] [place] FINAL PERFORMING LAB Normal [facility] Comment on above: Order Comment: Speci men Type: TISSUE SPECIMENOrdering Facility: [facility] Address: [address] [place] [address] Result Comment: Diag nostic interpretation performed at [facility], [address] [place] [address] CLIA# [id number] Lead Radiation Therapist: Fernando Briones M.D. Performed By: #### S ####[facility] [id number] [address] GROSS DESCRIPTION Normal [facility] Comment on above: Order Comment: Speci men Type: TISSUE SPECIMENOrdering Facility: [facility] Address: [address] [place] [address] Result Comment: A. E NDOMETRIUM BIOPSY Received in formalin are multiple graza, soft feathery segments of tissue aggregating to 3.0 x 2.0 x 0.2 cm. Totally submitted in one cassette. Gross examination performed at [facility], [address] [place] [address] TTN 08/05/2022 8:49 PM Performed By: #### S ####[facility] [id number] [address] CNOVon 07-31-2022 CNOV Office Visit (OBGYWM ) CHRISTIAN SUGGS ([id number]) 1945 F Date Time Provider Department 07/31/22 4:45 PM DEBI HACKETT OBGYWM During your visit today, we recorded [...] LPN - Fully Assessed Reason for Visit: SVP CHIEF MARKETING OFFICER Ultrasound [512774] Primary Visit Diagnosis:Intramural leiomyoma of uterus [D25.1] [...] 06/06/2011 Spinal stenosis [M48.00] 06/06/2011 Compression fracture [[id number]] 06/06/2011 Seasonal allergies [J30.2] 06/06/2011 GERD (gastroesophageal [...] Status:Closed by DEBI QUINTERO on 07/31/22 Normal [facility] PELVIC US WHIon 07-31-2022 [facility] CNPNon 07-23-2022 CNPN Telephone (UROLWS) CHRISTIAN SUGGS ([id number]) 1945 F Date Time Provider Department 07/23/22 PRIYANKA REYNOLDS During your visit today, we recorded the following information about you: Lelo Vidal LPN 07/23/2022 10:32 AM Signed ----- Message from Priyanka Reynolds PA-C sent at 07/23/2022 8:42 AM EST ----- No infection in the urine Priyanka Reynolds MPAS, [place], KAEL Vidal LPN 07/23/2022 10:36 AM Signed [...] 06/06/2011 Spinal stenosis [M48.00] 06/06/2011 Compression fracture [ZHI7642] 06/06/2011 Seasonal allergies [J30.2] 06/06/2011 GERD (gastroesophageal [...] Status:Closed by LELO VIDAL LPN on 07/23/22 Normal [facility] Bacteria Ur Culton Bacteria identified Cx Nom (U) CULTURE, URINE: Normal urogenital agatha: ORGANISM ID: 1 50,000-<100,000 CFU/ml Staphylococcus epidermidis No further workup Normal [facility] Comment on above: Performed By: #### 6 30-4 ####[facility] [id number] [address] CNOVon 07-19-2022 CNOV Office Visit (UROLWS ) CHRISTIAN SUGGS ([id number]) 1945 F Date Time Provider Department 07/19/22 1:20 PM PRIYANKA REYNOLDS During your visit today, we recorded the following information about you: Temperature Pulse Respiration Blood pressure 98.2 degrees 80/minute 14/minute 110/76 Weight Height 75.8 kg 1.659 m Priyanka Reynolds PA-C 07/19/2022 4:27 PM Signed [facility] NEW PATIENT CLINIC NOTE [...] No deformiti (more content not included)... Normal [facility] 07-19-2022 SONAM Telephone ([place]) SUGGS,TUULA [place] ([id number]) 1945 F Date Time Provider Department 07/19/22 PRIYANKA REYNOLDS During your visit today, we recorded the following information about you: Lelo Vidal LPN 07/19/2022 4:58 PM Signed Called Marialuisa- unable to leave message due [...] 06/06/2011 Spinal stenosis [M48.00] 06/06/2011 Compression fracture [[id number]] 06/06/2011 Seasonal allergies [J30.2] 06/06/2011 GERD (gastroesophageal [...] Status:Closed by LELO VIDAL LPN on 07/23/22 [facility] 07-18-2022 SONAM Telephone (OBGYWM) CHRISTIAN SUGGS ([id number]) 1945 F Date Time Provider Department 07/18/22 [...] Diagnosis:Abnormal CT scan [R93.89] Order(s):PELVIC US WHI [[id number]] Order #: [id number]: 1 FUTURE miSOPROStol (CYTOTEC) 200 mcg tabletUse [...] 06/06/2011 Spinal stenosis [M48.00] 06/06/2011 Compression fracture [[id number]] 06/06/2011 Seasonal allergies [J30.2] 06/06/2011 GERD (gastroesophageal [...] Status:Closed by HUE MILLER RN on 07/19/22 [facility] 06-27-2022 [facility] HNO ID: [id number] Author: Leonela Stein MD Service: General Internal [...] GERD, who presented to the hospital from [place] ED for evaluation and treatment of persistent [...] damon catheter was placed on admission to [place]. Pt was noted to have hypoxia on [...] urologist in the area for possible cystoscopy. SVP CHIEF MARKETING OFFICER was consulted for endometrial mass and recommended outpatient SVP CHIEF MARKETING OFFICER US and evaluation. Pt was transferred to SNF in stable condition for further therapy. Transitions of Care Critical Issues: SPECIALIST FOLLOW-UP: SVP CHIEF MARKETING OFFICER, urology LABS AND PROCEDURES PENDING AT DISCHARGE: [...] in the region of the endometrial canal -SVP CHIEF MARKETING OFFICER consulted this admission. Recommend SVP CHIEF MARKETING OFFICER US and O/P follow up with local SVP CHIEF MARKETING OFFICER in [place] Elevated troponin Assessment AND Plan: -HS 15>14>14 [...] Omayra Pearce MD Nurse Practitioner: Massiel Stallings APRN.DATA COMMUNICATIONS ANALYST SVP CHIEF MARKETING OFFICER Patient Condition @ Discharge: Stable Discharge Disposition: Residential Facility Discharge Physical Exam: VITAL SIGNS: BP 122/71 Pulse 64 Temp 36.5 ?C (97.7 ?F) ( (more content not included)... [facility] HNO ID: [id number] Author: Leonela Stein MD Service: ? Author [...] GERD, who presented to the hospital from [place] ED for evaluation and treatment of persistent [...] damon catheter was placed on admission to [place]. Pt was noted to have hypoxia on [...] urologist in the area for possible cystoscopy. SVP CHIEF MARKETING OFFICER was consulted for endometrial mass and recommended outpatient SVP CHIEF MARKETING OFFICER US and evaluation. Pt was transferred to SNF in stable condition for further therapy. Transitions of Care Critical Issues: SPECIALIST FOLLOW-UP: SVP CHIEF MARKETING OFFICER, urology LABS AND PROCEDURES PENDING AT DISCHARGE: [...] in the region of the endometrial canal -SVP CHIEF MARKETING OFFICER consulted this admission. Recommend SVP CHIEF MARKETING OFFICER US and O/P follow up with local SVP CHIEF MARKETING OFFICER in [place] Elevated troponin Assessment AND Plan: -HS 15>14>14 on admission, likely in setting of acute COVID-19 infection -EKG on admission with no acute ischemic changes -Cardiology consulted. No further work up Operations During Hospitalization: None Procedures During Hospitalization: CT Scan EKG chest x-ray Consulting Teams During Hospitalization: Treatment Team: Attending Provider: Leonela Stein MD Consulting: Omayra Pearce MD SVP CHIEF MARKETING OFFICER Patient Condition @ Discharge: Stable Discharge Disposition: Residential Facility Discharge Physical Exam: VITAL SIGNS: BP 122/71 Pulse 64 Temp 36.5 ?C (97.7 ?F) (Oral) Resp 18 Ht 162.6 cm (5' 4) Wt 78.3 kg (172 lb 9.9 oz) SpO2 95% BMI 29.63 kg/m? (more content not included)... Normal [facility] Comprehensive metabolic 2000 panelon 06-27-2022 Albumin [Mass/Vol] 3.5 g/dL Low 3.9-4.9 [facility] Comment on above: Order Comment: Speci men Type: BLOOD SPECIMEN Ordering Facility: [facility] Address: [address] [place] [address] Performed By: #### 2 4323-8 #### [facility] CLIA [id number] [place] [address] [place] ALP [Catalytic activity/Vol] 72 U/L Normal 34-123 [facility] Comment on above: Order Comment: Speci men Type: BLOOD SPECIMEN Ordering Facility: [facility] Address: [address] [place] [address] Performed By: #### 2 4323-8 #### [facility] CLIA [id number] [address] [place] [address] ALT [Catalytic activity/Vol] 20 U/L Normal 7-38 [facility] Comment on above: Order Comment: Speci men Type: BLOOD SPECIMEN Ordering Facility: [facility] Address: [address] [place] [address] Performed By: #### 2 4323-8 #### [facility] CLIA [id number] [address] [place] [address] [place] [facility] Anion gap [Moles/Vol] 10 mmol/L Normal 9-18 [facility] Comment on above: Order Comment: Speci men Type: BLOOD SPECIMEN Ordering Facility: [facility] Address: [address] [place] [address] Performed By: #### 2 4323-8 #### [facility] CLIA [id number] [address] [place] [address] [place] AST [Catalytic activity/Vol] 20 U/L Normal 13-35 [facility] Comment on above: Order Comment: Speci men Type: BLOOD SPECIMEN Ordering Facility: [facility] Address: [address] [place] [address] Performed By: #### 2 4323-8 #### [facility] CLIA [id number] [place] [address] [place] Bilirubin [Mass/Vol] mg/dL Low 0.2-1.3 [facility] Comment on above: Order Comment: Speci men Type: BLOOD SPECIMEN Ordering Facility: [facility] Address: [address] [place] [address] Performed By: #### 2 4323-8 #### [facility] CLIA [id number] [address] [place] [address] [place] Calcium [Mass/Vol] 9.2 mg/dL Normal 8.5-10.2 [facility] Comment on above: Order Comment: Speci men Type: BLOOD SPECIMEN Ordering Facility: [facility] Address: [address] [place] [address] Performed By: #### 2 4323-8 #### [facility] CLIA [id number] [address] [place] [address] [place] Chloride [Moles/Vol] 104 mmol/L Normal 97-105 [facility] Comment on above: Order Comment: Speci men Type: BLOOD SPECIMEN Ordering Facility: [facility] Address: [address] [place] [address] Performed By: #### 2 4323-8 #### [facility] CLIA [id number] [address] [place] [address] [place] CO2 [Moles/Vol] 25 mmol/L Normal 22-30 [facility] Comment on above: Order Comment: Speci men Type: BLOOD SPECIMEN Ordering Facility: [facility] Address: [address] [place] [address] Performed By: #### 2 4323-8 #### [facility] CLIA [id number] [address] [place] [address] [place] Creatinine [Mass/Vol] 0.75 mg/dL Normal 0.58-0.96 [facility] Comment on above: Order Comment: Speci men Type: BLOOD SPECIMEN Ordering Facility: [facility] Address: [address] [place] [address] Performed By: #### 2 4323-8 #### [facility] CLIA [id number] [place] [address] [place] ESTIMATED GLOMERULAR FILTRATION RATE 82 mL/min/1.73m??? Normal >=60 [facility] Comment on above: Order Comment: Fredy dowd Type: BLOOD SPECIMEN Ordering Facility: [facility] Address: [address] [place] [address] Result Comment: Anna mated Glomerular Filtration Rate [...] GFR. Performed By: #### 2 4323-8 #### [facility] CLIA [id number] [place] [address] [place] Glucose [Mass/Vol] 88 mg/dL Normal 74-99 [facility] Comment on above: Order Comment: Fredy dowd Type: BLOOD SPECIMEN Ordering Facility: [facility] Address: [address] [place] [address] Result Comment: The [place] Diabetes Association (ADA) provides guidance for cutoff [...] Standards of Medical Care in Diabetes 2016, [place] Diabetes Association. Diabetes Care. 2016.39(Suppl 1). Performed By: #### 2 4323-8 #### [facility] CLIA [id number] [place] [address] [place] Potassium [Moles/Vol] 3.7 mmol/L Normal 3.7-5.1 [facility] Comment on above: Order Comment: Fredy dowd Type: BLOOD SPECIMEN Ordering Facility: [facility] Address: [address] [address] Performed By: #### 2 4323-8 #### [facility] CLIA [id number] [address] [place] [address] [place] Protein [Mass/Vol] 6.1 g/dL Low 6.3-8.0 [facility] Comment on above: Order Comment: Speci men Type: BLOOD SPECIMEN Ordering Facility: [facility] Address: [address] [place] [address] Performed By: #### 2 4323-8 #### [facility] CLIA [id number] [address] [place] [address] [place] Sodium [Moles/Vol] 139 mmol/L Normal 136-144 [facility] Comment on above: Order Comment: Speci men Type: BLOOD SPECIMEN Ordering Facility: [facility] Address: [address] [place] [address] Performed By: #### 2 4323-8 #### [facility] CLIA [id number] [address] [place] [address] [place] Urea nitrogen [Mass/Vol] 20 mg/dL Normal 7-21 [facility] Comment on above: Order Comment: Speci men Type: BLOOD SPECIMEN Ordering Facility: [facility] Address: [address] [place] [address] Performed By: #### 2 4323-8 #### [facility] CLIA [id number] [address] [place] [address] [place] NURSING PROGon 06-27-2022 NURSING PROG HNO ID: [id number] Author: Eladia Barnhart, RN Service: Nursing Author Type: Registered Nurse [...] pick her up. 1100 follow up with SVP CHIEF MARKETING OFFICER for fibroid mass outpatient. , urology for retention. BM today. 1200 rounds by BODY TECHNICIAN/PAINTER, remdesivir infusing. Friends visiting patient. 1300 lunch provided 1400 back to bed 1530 Discharge written, discharge and medication instructions with common potential side effects given to: [facility] Scripts given / called in to: NONE Understanding verbalized by patient, questions answered including: COVID PRECAUTIONS Follow up appts if any listed for patient: PCP, SVP CHIEF MARKETING OFFICER, UROLOGY Discharged to [facility] via AMBULANCE Left with all personal possessions, including: CELL, SIMULATION TECH, 2 BOOKS, CLOTHING, SHOES, GLASSES iv and tele off PRIOR TO LEAVING COVID GUIDELINES RE ISOLATION, MASKING, FOR 5 DAYS FROM DIAGNOSIS, AND SOCIAL DISTANCING, AND HAND HYGIENE GIVEN. [facility] ALLIED HEALTH 06-26-2022 ALLIED HEALTH HNO ID: [id number] Author: Chaplain Tomas Service: Spiritual Care Author Type: [employer] Owner Type: Allied Health Filed: 06/26/2022 3:33 PM Note Text: SPIRITUAL CARE ASSESSMENT SERVICE DATE: 06/26/2022 SERVICE TIME: 1:43 PM Visit with: Patient Length of visit (minutes): 5 Confucianism / Spirituality: Faith Reason: Initial visit ASSESSMENT Emotional Disposition: Grateful, [...] look over it and would contact a spanish teacher if needed. I let her know of spanish teacher availability. SIGNATURE: Chaplain Tomas PATIENT NAME: Christian Suggs DATE: June 26, 2022 TIME: 3:31 PM PAGER/CONTACT #: [phone] Normal [facility] Basic metabolic 2000 panelon 06-26-2022 Anion gap [Moles/Vol] 11 mmol/L Normal 9-18 [facility] Comment on above: Order Comment: Speci men Type: BLOOD SPECIMENOrdering Facility: [facility] Address: [address] [address] Performed By: #### 2 4321-2 ####[facility] [id number] [place] [id number] [place] Calcium [Mass/Vol] 9.3 mg/dL Normal 8.5-10.2 [facility] Comment on above: Order Comment: Speci men Type: BLOOD SPECIMENOrdering Facility: [facility] Address: [address] [address] Performed By: #### 2 4321-2 ####[facility] [id number] [place] [address] [place] Chloride [Moles/Vol] 106 mmol/L High 97-105 [facility] Comment on above: Order Comment: Speci men Type: BLOOD SPECIMENOrdering Facility: [facility] Address: [address] [address] Performed By: #### 2 4321-2 ####[facility] [id number] [place] [id number] [place] CO2 [Moles/Vol] 24 mmol/L Normal 22-30 [facility] Comment on above: Order Comment: Speci men Type: BLOOD SPECIMENOrdering Facility: [facility] Address: [address] [address] Performed By: #### 2 4321-2 ####[facility] [id number] [place] [id number] [place] Creatinine [Mass/Vol] 0.72 mg/dL Normal 0.58-0.96 [facility] Comment on above: Order Comment: Fredy dowd Type: BLOOD SPECIMENOrdering Facility: [facility] Address: [address] [place] [address] Performed By: #### 2 4321-2 ####[facility] [id number] [place] [address] [place] ESTIMATED GLOMERULAR FILTRATION RATE 86 mL/min/1.73m??? Normal >=60 [facility] Comment on above: Order Comment: Fredy dowd Type: BLOOD SPECIMENOrdering Facility: [facility] Address: [address] [place] [address] Result Comment: Anna mated Glomerular Filtration Rate [...] actual GFR. Performed By: #### 2 4321-2 ####[facility] [id number] [place] [address] [place] Glucose [Mass/Vol] 93 mg/dL Normal 74-99 [facility] Comment on above: Order Comment: Fredy dowd Type: BLOOD SPECIMENOrdering Facility: [facility] Address: [address] [place] [address] Result Comment: The [place] Diabetes Association (ADA) provides guidance for cutoff [...] Standards of Medical Care in Diabetes 2016, [place] Diabetes Association. Diabetes Care. 2016.39(Suppl 1). Performed By: #### 2 4321-2 ####[facility] [id number] [place] [id number] [place] Potassium [Moles/Vol] 3.8 mmol/L Normal 3.7-5.1 [facility] Comment on above: Order Comment: Speci men Type: BLOOD SPECIMENOrdering Facility: [facility] Address: [address] [place] [address] Performed By: #### 2 4321-2 ####[facility] [id number] [place] [id number] [place] Sodium [Moles/Vol] 141 mmol/L Normal 136-144 [facility] Comment on above: Order Comment: Speci men Type: BLOOD SPECIMENOrdering Facility: [facility] Address: [address] [place] [address] Performed By: #### 2 4321-2 ####[facility] [id number] [place] [address] [place] Urea nitrogen [Mass/Vol] 25 mg/dL High 7-21 [facility] Comment on above: Order Comment: Speci men Type: BLOOD SPECIMENOrdering Facility: [facility] Address: [address] [place] [address] Performed By: #### 2 4321-2 ####[facility] [id number] [address] [place] CONSULT PROGon 06-26-2022 CONSULT PROG HNO ID: [id number] Author: Vivien Dietz MD Service: Infectious Disease [...] 650 mg ORAL q 6 H PRN mzolgqa-owcrqwkpi-hflsa in D3 500 mg-5 mcg (200 unit) [...] DAILY (6 AM) remdesivir in NaCl 0.9% Vial-Mate/ADD-Moline 100 mg 275 mL 100 mg INTRAVENOUS [...] Vivien Dietz MD 06/26/2022 9:50 PM Normal [facility] NURSING PROGon 06-26-2022 NURSING PROG HNO ID: [id number] Author: Danielle Weldon RN Service: Nursing Author [...] place. Damon replaced at this time. Normal [facility] THERAPY NTon 06-26-2022 THERAPY NT HNO ID: [id number] Author: Kieran Orr, PT Service: Physical Therapy Author Type: Physical Therapist Type: Therapy (PT/OT/Speech/Resp) Filed: 06/26/2022 2:31 PM Note Text: PHYSICAL THERAPY MISSED VISIT SERVICE DATE: 06/26/2022 SERVICE TIME: 1315 to 1315 ROOM: [place] [address] Patient not seen due to Eating. SIGNATURE: Kieran Orr PT PATIENT NAME: Christian Suggs DATE: June 26, 2022 TIME: 2:31 PM [facility] CONSULT PROGon 06-25-2022 CONSULT PROG HNO ID: [id number] Author: Vivien Dietz MD Service: Infectious Disease [...] 650 mg ORAL q 6 H PRN degxcuz-pwnigltzy-cjtpl in D3 500 mg-5 mcg (200 unit) [...] DAILY (6 AM) remdesivir in NaCl 0.9% Vial-Mate/ADD-Moline 100 mg 275 mL 100 mg INTRAVENOUS [...] Vivien Dietz MD 06/25/2022 5:35 PM Normal [facility] Comprehensive metabolic 2000 panelon 06-25-2022 Albumin [Mass/Vol] 3.3 g/dL Low 3.9-4.9 [facility] Comment on above: Order Comment: Speci men Type: BLOOD SPECIMEN Order[facility]: [facility] Address: [address] [address] Performed By: #### 2 4323-8 #### [facility] CLIA [id number] [address] [place] [address] [place] ALP [Catalytic activity/Vol] 70 U/L Normal 34-123 [facility] Comment on above: Order Comment: Speci men Type: BLOOD SPECIMEN Ordering Facility: [facility] Address: [address] [address] Performed By: #### 2 4323-8 #### [facility] CLIA [id number] [address] [place] [address] [place] ALT [Catalytic activity/Vol] 22 U/L Normal 7-38 [facility] Comment on above: Order Comment: Speci men Type: BLOOD SPECIMEN Ordering Facility: [facility] Address: [address] [place] [address] Performed By: #### 2 4323-8 #### [facility] CLIA [id number] [address] [place] [address] [place] Anion gap [Moles/Vol] 10 mmol/L Normal 9-18 [facility] Comment on above: Order Comment: Speci men Type: BLOOD SPECIMEN Ordering Facility: [facility] Address: [address] [address] Performed By: #### 2 4323-8 #### [facility] CLIA [id number] [address] [place] [address] [place] AST [Catalytic activity/Vol] 23 U/L Normal 13-35 [facility] Comment on above: Order Comment: Speci men Type: BLOOD SPECIMEN Ordering Facility: [facility] Address: [address] [place] [address] Performed By: #### 2 4323-8 #### [facility] CLIA [id number] [address] [place] [address] [place] Bilirubin [Mass/Vol] 0.2 mg/dL Normal 0.2-1.3 [facility] Comment on above: Order Comment: Speci men Type: BLOOD SPECIMEN Ordering Facility: [facility] Address: [address] [place] [address] Performed By: #### 2 4323-8 #### [facility] CLIA [id number] [address] [place] [address] [place] Calcium [Mass/Vol] 9.1 mg/dL Normal 8.5-10.2 [facility] Comment on above: Order Comment: Speci men Type: BLOOD SPECIMEN Ordering Facility: [facility] Address: [address] [place] [address] Performed By: #### 2 4323-8 #### [facility] CLIA [id number] [address] [place] [address] [place] Chloride [Moles/Vol] 107 mmol/L High 97-105 [facility] Comment on above: Order Comment: Speci men Type: BLOOD SPECIMEN Ordering Facility: [facility] Address: [address] [place] [address] Performed By: #### 2 4323-8 #### [facility] CLIA [id number] [address] [place] [address] [place] CO2 [Moles/Vol] 24 mmol/L Normal 22-30 [facility] Comment on above: Order Comment: Speci men Type: BLOOD SPECIMEN Ordering Facility: [facility] Address: [address] [place] [address] Performed By: #### 2 4323-8 #### [facility] CLIA [id number] [address] [place] [address] [place] Creatinine [Mass/Vol] 0.69 mg/dL Normal 0.58-0.96 [facility] Comment on above: Order Comment: Fredy dowd Type: BLOOD SPECIMEN Ordering Facility: [facility] Address: [address] [phone] Performed By: #### 2 4323-8 #### [facility] CLIA [id number] [address] [place] [address] [place] ESTIMATED GLOMERULAR FILTRATION RATE 89 mL/min/1.73m??? Normal >=60 [facility] Comment on above: Order Comment: Fredy dowd Type: BLOOD SPECIMEN Ordering Facility: [facility] Address: [address] [place] [address] Result Comment: Anna mated Glomerular Filtration Rate [...] GFR. Performed By: #### 2 4323-8 #### [facility] CLIA [id number] [address] [place] [address] [place] Glucose [Mass/Vol] 95 mg/dL Normal 74-99 [facility] Comment on above: Order Comment: Fredy dowd Type: BLOOD SPECIMEN Ordering Facility: [facility] Address: [address] [place] [address] Result Comment: The [place] Diabetes Association (ADA) provides guidance for cutoff [...] Standards of Medical Care in Diabetes 2016, [place] Diabetes Association. Diabetes Care. 2016.39(Suppl 1). Performed By: #### 2 4323-8 #### [facility] CLIA [id number] [address] [place] [address] [place] Potassium [Moles/Vol] 3.8 mmol/L Normal 3.7-5.1 [facility] Comment on above: Order Comment: Speci men Type: BLOOD SPECIMEN Ordering Facility: [facility] Address: [address] [address] Performed By: #### 2 4323-8 #### [facility] CLIA [id number] [address] [place] [address] [place] Protein [Mass/Vol] 6.2 g/dL Low 6.3-8.0 [facility] Comment on above: Order Comment: Speci men Type: BLOOD SPECIMEN Ordering Facility: [facility] Address: [address] [place] [address] Performed By: #### 2 4323-8 #### [facility] CLIA [id number] [address] [place] [address] [place] Sodium [Moles/Vol] 141 mmol/L Normal 136-144 [facility] Comment on above: Order Comment: Speci men Type: BLOOD SPECIMEN Ordering Facility: [facility] Address: [address] [place] [address] Performed By: #### 2 4323-8 #### [facility] CLIA [id number] [address] [place] [address] [place] Urea nitrogen [Mass/Vol] 20 mg/dL Normal 7-21 [facility] Comment on above: Order Comment: Speci men Type: BLOOD SPECIMEN Ordering Facility: [facility] Address: [address] [place] [address] Performed By: #### 2 4323-8 #### [facility] CLIA [id number] [address] [place] [address] [place] NURSING PROGon 06-25-2022 NURSING PROG HNO ID: [id number] Author: Brittani Tavera RN Service: Nursing Author Type: Registered Nurse [...] RT following, dc planning. Will CTM. Normal [facility] THERAPY NTon 06-25-2022 THERAPY NT HNO ID: [id number] Author: Sera Thayer OTR/L Service: Occupational Therapy Author Type: Occupational Therapist Type: Therapy (PT/OT/Speech/Resp) Filed: 06/25/2022 9:53 AM Note Text: Occupational Therapy Evaluation SERVICE DATE: 06/25/2022 SERVICE TIME: 855 to 918 ROOM: [place] [address] Recommended Discharge Disposition: Home OT Anticipated Discharge [...] ess on feet;Difficulty walking-musculoskeletal Interventions Provided: Evaluation;Self Detention Management (37304) $ Evaluation-Low (74000) Billed Units: 1 unit Self Detention Management (21073) Treatment Minutes: 8 $ Self Detention Management (14307) Billed Units: 1 unit Training AND education [...] PATIENT NAME: T (more content not included)... Normal [facility] ALLIED HEALTHon 06-24-2022 ALLIED HEALTH HNO ID: [id number] Author: Ellen Cleaning RN Service: Infection Prevention [...] 24, 2022 TIME: 7:53 AM PAGER/CONTACT #: [phone] Infection Prevention after hours/weekend pager: [phone] Normal [facility] CK TOTAL AND CK-MBon 022 CK [Catalytic activity/Vol] 60 U/L Normal 42-196 [facility] Comment on above: Order Comment: Speci men Type: BLOOD SPECIMENOrdering Facility: [facility] Address: [address] [place] [phone] Performed By: #### 2 4331-1, CKCKMB, 04436-8, JOSSIE ####[facility] [id number] [address] [place] CK.MB [Mass/Vol] ng/mL Normal <4.4 [facility] Comment on above: Order Comment: Speci men Type: BLOOD SPECIMENOrdering Facility: [facility] Address: [address] [place] [address] Performed By: #### 2 4331-1, CKCKMB, 25264-0, JOSSIE ####[facility] [id number] [address] CK.MB [Ratio] Normal [facility] Comment on above: Order Comment: Speci men Type: BLOOD SPECIMENOrdering Facility: [facility] Address: [address] [place] [address] Result Comment: CK M B % not reported with CK <100 U/L. Performed By: #### 2 4331-1, CKCKMB, 29828-1, JOSSIE ####[facility] [id number] [address] OF [facility] CONSULTon 06-24-2022 CONSULT HNO ID: [id number] Author: Omayra Pearce MD Service: Urology Author [...] mg ORAL q 6 H PRN Massiel Stallings DIRECTOR OF VOCATIONAL TRAINING.DATA COMMUNICATIONS ANALYST NaCl 0.9% iv flush bag 20 mL INTRAVENOUS PRN Dipika Frederick, DIRECTOR OF VOCATIONAL TRAINING.DATA COMMUNICATIONS ANALYST sodium chloride 0.9 % (flush) 3-5 mL (BD POSIFLUSH) 3-5 mL INTRAVENOUS q 12 H Dipika Frederick, DIRECTOR OF VOCATIONAL TRAINING.DATA COMMUNICATIONS ANALYST 5 mL at 06/24/222113 acetaminophen 650 mg tab(s) (TYLENOL) 650 mg ORAL q 6 H PRN Dipika Boonel, DIRECTOR OF VOCATIONAL TRAINING.DATA COMMUNICATIONS ANALYST 650 mg at 06/24/222109 qfrdoeh-hjxckdsbo-ibwuc in D3 500 mg-5 mcg (200 unit) 1 tablet 1 tablet ORAL BID Dipika Boonel, DIRECTOR OF VOCATIONAL TRAINING.DATA COMMUNICATIONS ANALYST 1 tablet at 06/24/222044 budesonide, enteric coated 6 mg cap(s) (ENTOCORT EC) 6 mg ORAL BEFORE BREAKFAST DAILY Dipika Melyl, DIRECTOR OF VOCATIONAL TRAINING.DATA COMMUNICATIONS ANALYST 6 mg at 06/24/22900 therapeutic multivitamin-minerals tablet (THERA-M PLUS) 1 tablet ORAL DAILY Dipika Melyl, DIRECTOR OF VOCATIONAL TRAINING.DATA COMMUNICATIONS ANALYST 1 tablet at 06/24/22900 meloxicam 7.5 mg tab(s) (MOBIC) 7.5 mg ORAL DAILY Dipika Melyl, DIRECTOR OF VOCATIONAL TRAINING.DATA COMMUNICATIONS ANALYST 7.5 mg at 06/24/22900 aspirin, enteric coated 81 mg tab(s) 81 mg ORAL DAILY Dipika Melyl, DIRECTOR OF VOCATIONAL TRAINING.DATA COMMUNICATIONS ANALYST 81 mg at 06/24/22 09 DULoxetine 30 mg cap(s) (CYMBALTA) 30 mg ORAL AT BEDTIME Dipika Frederick APRN.DATA COMMUNICATIONS ANALYST 30 mg at 06/24/222044 rosuvastatin 5 mg tab(s) (CRESTOR) 5 mg ORAL AT BEDTIME Dipika Frederick APRN.DATA COMMUNICATIONS ANALYST 5 mg at 06/24/222044 cefTRIAXone iv piggyback 1 g in dextrose (iso-osmotic) 50 mL (ROCEPHIN) 1 g INTRAVENOUS q 24 H Dipika Frederick APRN.DATA COMMUNICATIONS ANALYST Stopped at 06/24/[address] 40 mg tab(s) (PROTONIX) 40 mg ORAL DAILY (6 AM) Dipika Frederick APRN.CNP 40 mg at 06/24/22 05 remdesivir in NaCl 0.9% Vial-Mate/ADD-Moline 100 mg 275 mL 100 mg INTRAVENOUS q 24 HR Vivien Dietz MD Stopped at 06/24/222034 dexAMETHasone 6 mg tab(s) (DECADRON) 6 mg ORAL DAILY WITH BREAKFAST Vivien Dietz MD 6 mg at 06/24/22900 melatonin 3 mg tab(s) 3 mg ORAL AT BEDTIME PRN Cb Singh APRN.DATA COMMUNICATIONS ANALYST 3 mg at 06/24/222109 Allergies: ALLERGIES Allergen [...] rashes Sotero (more content not included)... Normal [facility] CONSULT HNO ID: [id number] Author: Shamika Ortega MD Service: Gynecology Author [...] in the past she has fibroids Recommend orthopaedic nurse ultrasound for further characterization and potentially biopsy if indicated. But this can be done as outpatient. There is [employer] OFFICER in [place], near patient's home - will put referral in discharge paperwork Pap testing no longer indicated. Will sign off at this time, but please page [employer] if further questions arise. Signature: Layla Germain [...] or endometrial polyps. Has not seen a dictaphone mechanic in years. Does not recall last Pap, [...] abd/pelvis. Endomet (more content not included)... Normal [facility] CONSULT HNO ID: [id number] Author: Anup Gordon MD Service: Cardiovascular Medicine [...] s/p excision 2008. She presented initially to [facility] on 06/20 with generalized weakness, fever, cough, [...] She was started on Rocephin. Transferred to [facility]. She denies recent chest pain or dyspnea. She tells me she has been feeling ill since around [facility]. She thought possibly she had the flu. [...] 650 mg ORAL q 6 H PRN skkxzot-bxlurcwti-wogcm in D3 500 mg-5 mcg (200 unit) [...] DAILY (6 AM) remdesivir in NaCl 0.9% Vial-Mate/ADD-Moline 100 mg 275 mL 100 mg INTRAVENOUS [...] of bleed (more content not included)... Normal [facility] CONSULT PROGon 06-24-2022 CONSULT PROG HNO ID: [id number] Author: Vivien Dietz MD Service: Infectious Disease [...] 650 mg ORAL q 6 H PRN mjnijfu-kowlsvcuq-usalo in D3 500 mg-5 mcg (200 unit) [...] DAILY (6 AM) remdesivir in NaCl 0.9% Vial-Mate/ADD-Moline 100 mg 275 mL 100 mg INTRAVENOUS [...] Vivien Dietz MD 06/24/2022 7:38 PM Normal [facility] Comprehensive metabolic 2000 panelon 06-24-2022 Albumin [Mass/Vol] 3.3 g/dL Low 3.9-4.9 [facility] Comment on above: Order Comment: Speci men Type: BLOOD SPECIMENOrdering Facility: [facility] Address: [address] [place] [address] Performed By: #### 2 4331-1, CKCKMB, 95363-2, JOSSIE ####[facility] LABORATORYCLIA [id number] [address] [place] ALP [Catalytic activity/Vol] 68 U/L Normal 34-123 [facility] Comment on above: Order Comment: Speci men Type: BLOOD SPECIMENOrdering Facility: [facility] Address: [address] [place] [id number] Performed By: #### 2 4331-1, CKCKMB, 97364-7, JOSSIE ####[facility] LABORATORYCLIA [id number] [place] [id number] [place] ALT [Catalytic activity/Vol] 19 U/L Normal 7-38 [facility] Comment on above: Order Comment: Speci men Type: BLOOD SPECIMENOrdering Facility: [facility] Address: [address] [place] [address] Performed By: #### 2 4331-1, CKCKMB, 20565-7, JOSSIE ####[facility] LABORATORYCLIA [id number] [place] [address] [place] Anion gap [Moles/Vol] 15 mmol/L Normal 9-18 [facility] Comment on above: Order Comment: Speci men Type: BLOOD SPECIMENOrdering Facility: [facility] Address: [address] [place] [address] Performed By: #### 2 4331-1, CKCKMB, 42829-1, JOSSIE ####[facility] LABORATORYCLIA [id number] [address] STATES [facility] AST [Catalytic activity/Vol] 20 U/L Normal 13-35 [facility] Comment on above: Order Comment: Speci men Type: BLOOD SPECIMENOrdering Facility: [facility] Address: [address] [place] [address] Performed By: #### 2 4331-1, CKCKMB, 91528-0, JOSSIE ####[facility] LABORATORYCLIA [id number] [place] [address] [place] Bilirubin [Mass/Vol] 0.2 mg/dL Normal 0.2-1.3 [facility] Comment on above: Order Comment: Speci men Type: BLOOD SPECIMENOrdering Facility: [facility] Address: [address] [place] [address] Performed By: #### 2 4331-1, CKCKMB, 97616-8, JOSSIE ####[facility] LABORATORYCLIA [id number] [place] [address] [place] Calcium [Mass/Vol] 8.7 mg/dL Normal 8.5-10.2 [facility] Comment on above: Order Comment: Speci men Type: BLOOD SPECIMENOrdering Facility: [facility] Address: [address] [place] [address] Performed By: #### 2 4331-1, CKCKMB, 98343-1, JOSSIE ####[facility] LABORATORYCLIA [id number] [place] [address] [place] Chloride [Moles/Vol] 109 mmol/L High 97-105 [facility] Comment on above: Order Comment: Speci men Type: BLOOD SPECIMENOrdering Facility: [facility] Address: [address] [place] [address] Performed By: #### 2 4331-1, CKCKMB, 00255-0, JOSSIE ####[facility] LABORATORYCLIA [id number] [place] [address] [place] CO2 [Moles/Vol] 21 mmol/L Low 22-30 [facility] Comment on above: Order Comment: Speci men Type: BLOOD SPECIMENOrdering Facility: [facility] Address: [address] [place] [address] Performed By: #### 2 4331-1, CKCKMB, 20456-9, JOSSIE ####[facility] LABORATORYCLIA [id number] [place] [address] [place] Creatinine [Mass/Vol] 0.76 mg/dL Normal 0.58-0.96 [facility] Comment on above: Order Comment: Speci men Type: BLOOD SPECIMENOrdering Facility: [facility] Address: [address] [place] [address] Performed By: #### 2 4331-1, CKCKMB, 34541-0, JOSSIE ####[facility] LABORATORYCLIA [id number] [place] [address] [place] ESTIMATED GLOMERULAR FILTRATION RATE 80 mL/min/1.73m??? Normal >=60 [facility] Comment on above: Order Comment: Speci men Type: BLOOD SPECIMENOrdering Facility: [facility] Address: [address] [place] [phone] Result Comment: Anna mated Glomerular Filtration Rate [...] GFR. Performed By: #### 2 4331-1, CKCKMB, 42439-9, JOSSIE ####[facility] LABORATORYCLIA [id number] [place] [id number] [place] Glucose [Mass/Vol] 94 mg/dL Normal 74-99 [facility] Comment on above: Order Comment: Fredy dowd Type: BLOOD SPECIMENOrdering Facility: [facility] Address: [address] [place] [address] Result Comment: The [place] Diabetes Association (ADA) provides guidance for cutoff [...] Standards of Medical Care in Diabetes 2016, [place] Diabetes Association. Diabetes Care. 2016.39(Suppl 1). Performed By: #### 2 4331-1, CKCKMB, 48346-7, JOSSIE ####[facility] LABORATORYCLIA [id number] [place] [id number] [place] Potassium [Moles/Vol] 3.9 mmol/L Normal 3.7-5.1 [facility] Comment on above: Order Comment: Fredy dowd Type: BLOOD SPECIMENOrdering Facility: [facility] Address: [address] Performed By: #### 2 4331-1, CKCKMB, 20118-5, JOSSIE ####[facility] LABORATORYCLIA [id number] [place] [id number] [place] Protein [Mass/Vol] 6.0 g/dL Low 6.3-8.0 [facility] Comment on above: Order Comment: Speci men Type: BLOOD SPECIMENOrdering Facility: [facility] Address: [address] [place] [address] Performed By: #### 2 4331-1, CKCKMB, 33376-0, JOSSIE ####[facility] LABORATORYCLIA [id number] [place] [id number] [place] Sodium [Moles/Vol] 145 mmol/L High 136-144 [facility] Comment on above: Order Comment: Speci men Type: BLOOD SPECIMENOrdering Facility: [facility] Address: [address] [place] [address] Performed By: #### 2 4331-1, CKCKMB, 36918-7, JOSSIE ####[facility] LABORATORYCLIA [id number] [place] [address] [place] Urea nitrogen [Mass/Vol] 16 mg/dL Normal 7-21 [facility] Comment on above: Order Comment: Speci men Type: BLOOD SPECIMENOrdering Facility: [facility] Address: [address] [place] [address] Performed By: #### 2 4331-1, CKCKMB, 89734-8, JOSSIE ####[facility] LABORATORYCLIA [id number] [place] [address] [place] Lipid 1996 panelon 2 Cholesterol [Mass/Vol] 137 mg/dL Normal <200 [facility] Comment on above: Order Comment: Speci men Type: BLOOD SPECIMENOrdering Facility: [facility] Address: [address] [place] [address] Result Comment: <200 mg/dL, Desirable 200-239 mg/dL, Borderline high >239 mg/dL, High Performed By: #### 2 4331-1, CKCKMB, 35215-9, JOSSIE ####[facility] LABORATORYCLIA [id number] [address] Cholesterol in HDL [Mass/Vol] 38 mg/dL Low >39 [facility] Comment on above: Order Comment: Garcíaulices dowd Type: BLOOD SPECIMENOrdering Facility: [facility] Address: [address] [place] [address] Result Comment: 40-5 9 mg/dL, Acceptable >59 mg/dL, High: Negative risk factor for coronary heart disease <40 mg/dL, Low: Positive risk factor for coronary heart disease Performed By: #### 2 4331-1, CKCKMB, 23492-8, JOSSIE ####[facility] LABORATORYCLIA [id number] [place] [id number] [facility] Cholesterol in LDL [Mass/Vol] 78 mg/dL Normal <100 [facility] Comment on above: Order Comment: Fredy [facility] Type: BLOOD SPECIMENOrdering Facility: [facility] Address: [address] [place] [address] Result Comment: <100 mg/dL, Optimal 100-129 mg/dL, Near optimal/above optimal 130-159 mg/dL, Borderline high 160-189 mg/dL, High >189 mg/dL, Very high Secondary prevention optimal LDL Cholesterol levels are recommended to be < 70 mg/dL Performed By: #### 2 4331-1, CKCKMB, 94472-0, JOSSIE ####[facility] LABORATORYCLIA [id number] [place] [id number] [facility] Cholesterol in LDL/Cholesterol in HDL [Mass ratio] 2.05 {ratio} Normal <2.54 [facility] Comment on above: Order Comment: Garcíaulices dowd Type: BLOOD SPECIMENOrdering Facility: [facility] Address: [address] [place] [address] Result Comment: Reftiffany arroyo: 1. National Cholesterol Education Program ATP III Guideline At-A-Glance Quick Desk Reference: National Heart, Lung, and Blood [place]. National Institutes of Health. 2001: NIH Publication No. 01-3305. 2. An International Atherosclerosis Society position paper: global recommendations for the management of dyslipidemia: executive summary, Atherosclerosis. 2014: 232(2):410-413. Performed By: #### 2 4331-1, CKCKMB, 09708-9, JOSSEI ####[facility] LABORATORYCLIA [id number] [place] [id number] [place] Cholesterol in VLDL [Mass/Vol] 21 mg/dL Normal <30 [facility] Comment on above: Order Comment: Speci men Type: BLOOD SPECIMENOrdering Facility: [facility] Address: [address] [place] [address] Performed By: #### 2 4331-1, CKCKMB, 07267-7, JOSSIE ####[facility] LABORATORYCLIA [id number] [place] [address] [place] Cholesterol non HDL [Mass/Vol] 99 mg/dL Normal <130 [facility] Comment on above: Order Comment: Speci men Type: BLOOD SPECIMENOrdering Facility: [facility] Address: [address] [place] [address] Result Comment: <130 mg/dL, Optimal 130-159 mg/dL, Near optimal/above optimal 160-189 mg/dL, Borderline high 190-219 mg/dL, High >219 mg/dL, Very high Secondary prevention optimal non HDL Cholesterol levels are recommended to be <100 mg/dL Performed By: #### 2 4331-1, CKCKMB, 36927-7, JOSSIE ####[facility] LABORATORYCLIA [id number] [place] [address] [place] Cholesterol.total/Choles terol in HDL [Mass ratio] 3.61 {ratio} Normal <5.10 [facility] Comment on above: Order Comment: Speci men Type: BLOOD SPECIMENOrdering Facility: [facility] Address: [address] [place] [address] Performed By: #### 2 4331-1, CKCKMB, 80572-9, JOSSIE ####[facility] LABORATORYCLIA [id number] [place] [address] [place] FASTING TIME Normal [facility] Comment on above: Order Comment: Speci men Type: BLOOD SPECIMENOrdering Facility: [facility] Address: [address] [place] [address] Result Comment: Unkn own Performed By: #### 2 4331-1, CKCKMB, 13872-4, JOSSIE ####[facility] LABORATORYCLIA [id number] [address] Triglyceride [Mass/Vol] 107 mg/dL Normal <150 [facility] Comment on above: Order Comment: Speci men Type: BLOOD SPECIMENOrdering Facility: [facility] Address: [facility] [place] [address] Result Comment: <150 mg/dL, Normal 150-199 mg/dL, Borderline high 200-499 mg/dL, High >499 mg/dL, Very high Performed By: #### 2 4331-1, CKCKMB, 68540-1, JOSSIE ####[facility] LABORATORYCLIA [id number] [address] OF [facility] THERAPY NTon 06-24-2022 THERAPY NT HNO ID: [id number] Author: Kieran Orr, PT Service: Physical Therapy Author Type: Physical Therapist Type: Therapy (PT/OT/Speech/Resp) Filed: 06/24/2022 3:09 PM Note Text: Physical Therapy Evaluation SERVICE DATE: 06/24/2022 SERVICE TIME: 1430 to 1455 ROOM: [place] [address] Recommended Discharge Disposition: Home PT Anticipated Discharge Needs: Supervision at Home Supervision at Home due to: Decreased safety awareness Recommended Discharge Equipment: Wheeled Walker PT 6 Clicks Score: 20 Precautions/Activity Restrictions: Fall Risk;Lines/Tubes/Drains Isolation Type: Contact AND Droplet Precautions-Plus Eyewear Current Hospital Course: 76 y/o d/c-ed home from [facility] Reason for Hospital Admission: fall Relevant Past [...] gait and mobility-other Interventions Provided: Evaluation;Therapeutic Exercise (95675) $ Evaluation-Low (27644) Billed Units: 1 unit Therapeutic Exercise (05630) Treatment Minutes: 9 $ Therapeutic Exercise (04449) Billed Units: 1 unit Verbal and tactile [...] Movement facil (more content not included)... Normal [facility] TROPONIN Ton 06-24-2022 Troponin T.cardiac [Mass/Vol] ug/L Normal 0.000-0.029 [facility] Comment on above: Order Comment: Speci men Type: BLOOD SPECIMENOrdering Facility: [facility] Address: [address] [place] [address] Performed By: #### 2 4331-1, CKCKMB, 18537-6, JOSSIE ####[facility] LABORATORYCLIA [id number] [place] [address] [place] [facility] Basic metabolic 2000 panelon 06-23-2022 Anion gap [Moles/Vol] 11 mmol/L Normal 9-18 [facility] Comment on above: Order Comment: Speci men Type: BLOOD SPECIMEN [facility] Address: [address] [place] [address] Performed By: #### 2 4321-2 #### [facility] CLIA [id number] [place] [address] [place] Calcium [Mass/Vol] 8.9 mg/dL Normal 8.5-10.2 [facility] Comment on above: Order Comment: Speci men Type: BLOOD SPECIMEN [facility] Address: [address] [place] [address] Performed By: #### 2 4321-2 #### [facility] CLIA [id number] [place] Chloride [Moles/Vol] 106 mmol/L High 97-105 [facility] Comment on above: Order Comment: Speci men Type: BLOOD SPECIMEN [facility] Address: [address] [place] [address] Performed By: #### 2 4321-2 #### [facility] CLIA [id number] [address] [place] [address] [place] CO2 [Moles/Vol] 24 mmol/L Normal 22-30 [facility] Comment on above: Order Comment: Speci men Type: BLOOD SPECIMEN [facility] Address: [address] [place] [address] Performed By: #### 2 4321-2 #### [facility] CLIA [id number] [address] [place] [address] [place] Creatinine [Mass/Vol] 0.80 mg/dL Normal 0.58-0.96 [facility] Comment on above: Order Comment: Speci men Type: BLOOD SPECIMEN [facility] Address: [address] [place] [address] Performed By: #### 2 4321-2 #### [facility] CLIA [id number] [address] [place] [address] ESTIMATED GLOMERULAR FILTRATION RATE 76 mL/min/1.73m??? Normal >=60 [facility] Comment on above: Order Comment: Speci men Type: BLOOD SPECIMEN [facility] Address: [address] [place] [address] Result Comment: Anna mated Glomerular Filtration Rate [...] GFR. Performed By: #### 2 4321-2 #### [facility] CLIA [id number] [place] [address] [place] Glucose [Mass/Vol] 101 mg/dL High 74-99 [facility] Comment on above: Order Comment: Fredy dowd Type: BLOOD SPECIMEN [facility] Address: [address] [place] [address] Result Comment: The [place] Diabetes Association (ADA) provides guidance for cutoff [...] Standards of Medical Care in Diabetes 2016, [place] Diabetes Association. Diabetes Care. 2016.39(Suppl 1). Performed By: #### 2 4321-2 #### [facility] CLIA [id number] [address] [place] [address] [place] Potassium [Moles/Vol] 3.3 mmol/L Low 3.7-5.1 [facility] Comment on above: Order Comment: Fredy dowd Type: BLOOD SPECIMEN [facility] Address: [address] [place] [address] Performed By: #### 2 4321-2 #### [facility] CLIA [id number] [address] [place] [address] [place] Sodium [Moles/Vol] 141 mmol/L Normal 136-144 [facility] Comment on above: Order Comment: Fredy dowd Type: BLOOD SPECIMEN [facility] Address: [address] [place] [address] Performed By: #### 2 4321-2 #### [facility] CLIA [id number] [address] [place] [address] [place] Urea nitrogen [Mass/Vol] 10 mg/dL Normal 7-21 [facility] Comment on above: Order Comment: Fredy dowd Type: BLOOD SPECIMEN [facility] Address: [address] [place] [address] Performed By: #### 2 4321-2 #### [facility] CLIA [id number] [address] [place] [address] [place] CBC panel Auto (Bld)on 06-23 Erythrocyte distribution width (RBC) [Ratio] 15.3 % High 11.5-15.0 [facility] Comment on above: Order Comment: Speci men Type: BLOOD SPECIMEN [facility] Address: [address] [place] [address] Performed By: #### 5 8410-2 #### [facility] CLIA [id number] [address] [place] [address] Hematocrit (Bld) [Volume fraction] 35.9 % Low 36.0-46.0 [facility] Comment on above: Order Comment: Speci men Type: BLOOD SPECIMEN [facility] Address: [address] [place] [address] Performed By: #### 5 8410-2 #### [facility] CLIA [id number] [address] [place] [address] [place] Hemoglobin (Bld) [Mass/Vol] 12.0 g/dL Normal 11.5-15.5 [facility] Comment on above: Order Comment: Speci men Type: BLOOD SPECIMEN [facility] Address: [address] [place] [address] Performed By: #### 5 8410-2 #### [facility] CLIA [id number] [address] [place] [address] [place] MCH (RBC) [Entitic mass] 28.3 pg Normal 26.0-34.0 [facility] Comment on above: Order Comment: Speci men Type: BLOOD SPECIMEN [facility] Address: [address] [place] [address] Performed By: #### 5 8410-2 #### [facility] CLIA [id number] [address] [place] [address] [place] MCHC (RBC) [Mass/Vol] 33.4 g/dL Normal 30.5-36.0 [facility] Comment on above: Order Comment: Speci men Type: BLOOD SPECIMEN [facility] Address: [address] [place] [address] Performed By: #### 5 8410-2 #### [facility] CLIA [id number] [address] [place] [address] [place] MCV (RBC) [Entitic vol] 84.7 fL Normal 80.0-100.0 [facility] Comment on above: Order Comment: Speci men Type: BLOOD SPECIMEN [facility] Address: [address] [place] [address] Performed By: #### 5 8410-2 #### [facility] CLIA [id number] [address] [place] [address] [place] Nucleated RBC (Bld) [#/Vol] 10*3/uL Normal <0.01 [facility] Comment on above: Order Comment: Speci men Type: BLOOD SPECIMEN [facility] Address: [address] [place] [address] Performed By: #### 5 8410-2 #### [facility] CLIA [id number] [address] [place] [address] [place] Platelet mean volume (Bld) [Entitic vol] 10.4 fL Normal 9.0-12.7 [facility] Comment on above: Order Comment: Speci men Type: BLOOD SPECIMEN [facility] Address: [address] [place] [address] Performed By: #### 5 8410-2 #### [facility] CLIA [id number] [address] [place] [address] [place] Platelets (Bld) [#/Vol] 162 10*3/uL Normal 150-400 [facility] Comment on above: Order Comment: Speci men Type: BLOOD SPECIMEN [facility] Address: [address] [place] [address] Performed By: #### 5 8410-2 #### [facility] CLIA [id number] [place] [address] [place] RBC (Bld) [#/Vol] 4.24 10*6/uL Normal 3.90-5.20 [facility] Comment on above: Order Comment: Speci men Type: BLOOD SPECIMEN [facility] Address: [address] [place] [address] Performed By: #### 5 8410-2 #### [facility] CLIA [id number] [address] [place] [address] [place] WBC (Bld) [#/Vol] 7.54 10*3/uL Normal 3.70-11.00 [facility] Comment on above: Order Comment: Speci men Type: BLOOD SPECIMEN [facility] Address: [address] [place] [address] Performed By: #### 5 8410-2 #### [facility] CLIA [id number] [address] [place] [address] CONSULTon 06-23-2022 CONSULT HNO ID: [id number] Author: Vivien Dietz MD Service: Infectious Disease Author Type: Physician Type: Consults Filed: 06/24/2022 11:38 AM Note Text: [facility] - Consultation CHRISTIAN SUGGS : 1945 AGE: 76 SEX: F CSN: [id number] [facility]: [facility] LOCATION: [facility] ATTENDING PHYSICIAN: Leonela Stein M.D. DATE OF SERVICE: 06/23/2022 TIME OF SERVICE: 08:33 PM CONSULTING PHYSICIAN: Vivien Dietz M.D. REASON FOR CONSULTATION: To evaluate for COVID positive illness. HISTORY OF PRESENT ILLNESS: This is a 76-year-old female with a history significant for arthritis, right thigh melanoma, presented from [facility] after fall. Patient was feeling [...] consistent with UTI. Patient was transferred to [facility] for further care. In ED, there was [...] iv flush bag 20 mL INTRAVENOUS PRN Dipikacaitlin Boonel, DIRECTOR OF VOCATIONAL TRAINING.DATA COMMUNICATIONS ANALYST sodium chloride 0.9 % (flush) 3-5 mL (BD POSIFLUSH) 3-5 mL INTRAVENOUS q 12 H Dipika Melyl, DIRECTOR OF VOCATIONAL TRAINING.DATA COMMUNICATIONS ANALYST 3 mL at 06/24/22 0903 acetaminophen 650 mg tab(s) (TYLENOL) 650 mg ORAL q 6 H PRN Dipika Kailashiell, DIRECTOR OF VOCATIONAL TRAINING.DATA COMMUNICATIONS ANALYST 650 mg at 06/23/22 0340 rbcjhqv-vpprfgojz-hypjx in D3 500 mg-5 mcg (200 unit) 1 tablet 1 tablet ORAL BID Dipika Lamgeovannal, DIRECTOR OF VOCATIONAL TRAINING.DATA COMMUNICATIONS ANALYST 1 tablet at 06/24/22 0901 budesonide, enteric coated 6 mg cap(s) (ENTOCORT EC) 6 mg ORAL BEFORE BREAKFAST DAILY Dipika Melyl, DIRECTOR OF VOCATIONAL TRAINING.DATA COMMUNICATIONS ANALYST 6 mg at 06/24/22900 therapeutic multivitamin-minerals tablet (THERA-M PLUS) 1 tablet ORAL DAILY Dipika Frederick APRN.DATA COMMUNICATIONS ANALYST 1 tablet at 06/24/22900 meloxicam 7.5 mg tab(s) (MOBIC) 7.5 mg ORAL DAILY Dipika Frederick APRN.DATA COMMUNICATIONS ANALYST 7.5 mg at 06/24/22900 aspirin, enteric coated 81 mg tab(s) 81 mg ORAL DAILY Dipika Frederick APRN.DATA COMMUNICATIONS ANALYST 81 mg at 06/24/22901 DULoxetine 30 mg cap(s) (CYMBALTA) 30 mg ORAL AT BEDTIME Dipika Frederick APRN.DATA COMMUNICATIONS ANALYST 30 mg at 06/23/222048 rosuvastatin 5 mg tab(s) (CRESTOR) 5 mg ORAL AT BEDTIME Dipika Frederick APRN.DATA COMMUNICATIONS ANALYST 5 mg at 06/23/222048 cefTRIAXone iv piggyback 1 g in dextrose (iso-osmotic) 50 mL (ROCEPHIN) 1 g INTRAVENOUS q 24 H Dipika Frederick APRN.DATA COMMUNICATIONS ANALYST Stopped at 06/24/[address] 40 mg tab(s) (PROTONIX) 40 mg ORAL DAILY (6 AM) Dipika Frederick APRN.DATA COMMUNICATIONS ANALYST 40 mg at 06/24/22545 remdesivir in NaCl 0.9% Vial-Mate/ADD-[place] 100 mg 275 mL 100 mg INTRAVENOUS q 24 HR Vivien Dietz MD dexAMETHasone 6 mg tab(s) (DECADRON) 6 mg ORAL DAILY WITH BREAKFAST Vivien Dietz MD 6 mg at 06/24/22900 melatonin 3 mg tab(s) 3 mg ORAL AT BEDTIME PRN Cb Singh APRN.CNP 3 mg at 06/23/222048 ALLERGIES: [...] bilateral bases. (more content not included)... Normal [facility] CONSULT PROGon 06-23-2022 CONSULT PROG HNO ID: [id number] Author: Vivien Dietz MD Service: Infectious Disease Author Type: Physician Type: Consult Progress Note Filed: 06/24/2022 2:16 AM Note Text: chart reviewed/ covid pos-06/20- documented hypoxemia iv remdesivir po decadron rec-iv remdesivir ---may dc after 3 days if stable po decadron uti--iv ceftriaxone Vivien Dietz MD 06/23/2022 ph:[phone] Normal [facility] Comprehensive metabolic 2000 panelon 06-23-2022 Albumin [Mass/Vol] 3.7 g/dL Low 3.9-4.9 [facility] Comment on above: Order Comment: Speci men Type: BLOOD SPECIMEN Ordering Facility: [facility] Address: [address] [address] Performed By: #### 2 4323-8, JOSSIE #### [facility] CLIA [id number] [place] [address] [place] ALP [Catalytic activity/Vol] 75 U/L Normal 34-123 [facility] Comment on above: Order Comment: Speci men Type: BLOOD SPECIMEN Ordering Facility: [facility] Address: [address] [address] Performed By: #### 2 4323-8, JOSSIE #### [facility] CLIA [id number] [place] [address] [place] ALT [Catalytic activity/Vol] 21 U/L Normal 7-38 [facility] Comment on above: Order Comment: Speci men Type: BLOOD SPECIMEN Ordering Facility: [facility] Address: [address] [address] Performed By: #### 2 4323-8, JOSSIE #### [facility] CLIA [id number] [address] [place] [address] [place] Anion gap [Moles/Vol] 11 mmol/L Normal 9-18 [facility] Comment on above: Order Comment: Speci men Type: BLOOD SPECIMEN Ordering Facility: [facility] Address: [address] [address] Performed By: #### 2 4323-8, JOSSIE #### [facility] CLIA [id number] [address] [place] [address] [place] AST [Catalytic activity/Vol] 24 U/L Normal 13-35 [facility] Comment on above: Order Comment: Speci men Type: BLOOD SPECIMEN Ordering Facility: [facility] Address: [address] [place] [address] Performed By: #### 2 4323-8, JOSSIE #### [facility] CLIA [id number] [address] [place] [address] [place] Bilirubin [Mass/Vol] mg/dL Low 0.2-1.3 [facility] Comment on above: Order Comment: Speci men Type: BLOOD SPECIMEN Ordering Facility: [facility] Address: [address] [place] [address] Performed By: #### 2 4323-8, JOSSIE #### [facility] CLIA [id number] [address] [place] [address] [place] Calcium [Mass/Vol] 8.7 mg/dL Normal 8.5-10.2 [facility] Comment on above: Order Comment: Speci men Type: BLOOD SPECIMEN Ordering Facility: [facility] Address: [address] [address] Performed By: #### 2 4323-8, JOSSIE #### [facility] CLIA [id number] [address] [place] [address] [place] Chloride [Moles/Vol] 104 mmol/L Normal 97-105 [facility] Comment on above: Order Comment: Speci men Type: BLOOD SPECIMEN Ordering Facility: [facility] Address: [address] [address] Performed By: #### 2 4323-8, JOSSIE #### [facility] CLIA [id number] [place] [address] [place] CO2 [Moles/Vol] 25 mmol/L Normal 22-30 [facility] Comment on above: Order Comment: Speci men Type: BLOOD SPECIMEN Ordering Facility: [facility] Address: [address] [address] Performed By: #### 2 4323-8, JOSSIE #### [facility] CLIA [id number] [address] [place] [address] Creatinine [Mass/Vol] 0.86 mg/dL Normal 0.58-0.96 [facility] Comment on above: Order Comment: Speci men Type: BLOOD SPECIMEN Ordering Facility: [facility] Address: [address] [place] [address] Performed By: #### 2 4323-8, JOSSIE #### [facility] CLIA [id number] [address] [place] [address] ESTIMATED GLOMERULAR FILTRATION RATE 69 mL/min/1.73m??? Normal >=60 [facility] Comment on above: Order Comment: Speci men Type: BLOOD SPECIMEN Ordering Facility: [facility] Address: [address] [place] [address] Result Comment: Anna mated Glomerular Filtration Rate [...] Performed By: #### 2 4323-8, JOSSIE #### [facility] CLIA [id number] [address] [place] [address] [place] Glucose [Mass/Vol] 113 mg/dL High 74-99 [facility] Comment on above: Order Comment: Speci men Type: BLOOD SPECIMEN Ordering Facility: [facility] Address: [address] [place] [address] Result Comment: The [place] Diabetes Association (ADA) provides guidance for cutoff [...] Standards of Medical Care in Diabetes 2016, [place] Diabetes Association. Diabetes Care. 2016.39(Suppl 1). Performed By: #### 2 4323-8, JOSSIE #### [facility] CLIA [id number] [address] [place] [address] [place] Potassium [Moles/Vol] 3.9 mmol/L Normal 3.7-5.1 [facility] Comment on above: Order Comment: Speci men Type: BLOOD SPECIMEN Ordering Facility: [facility] Address: [address] [address] Performed By: #### 2 4323-8, JOSSIE #### [facility] CLIA [id number] [address] [place] [address] [place] Protein [Mass/Vol] 6.5 g/dL Normal 6.3-8.0 [facility] Comment on above: Order Comment: Speci men Type: BLOOD SPECIMEN Ordering Facility: [facility] Address: [address] [address] Performed By: #### 2 4323-8, JOSSIE #### [facility] CLIA [id number] [address] [place] [address] [place] Sodium [Moles/Vol] 140 mmol/L Normal 136-144 [facility] Comment on above: Order Comment: Speci men Type: BLOOD SPECIMEN Ordering Facility: [facility] Address: [address] [address] Performed By: #### 2 4323-8, JOSSIE #### [facility] CLIA [id number] Urea nitrogen [Mass/Vol] 15 mg/dL Normal 7- [facility] Comment on above: Order Comment: Fredy dowd Type: BLOOD SPECIMEN Ordering Facility: [facility] Address: [address] [place] [address] Performed By: #### 2 4323-8, JOSSIE #### [facility] CLIA [id number] OF [facility] D dimer FEU PPP-mCncon 06-23 Fibrin D-dimer FEU (PPP) [Mass/Vol] 1860 ng/mL FEU High <500 [facility] Comment on above: Order Comment: Fredy dowd Type: BLOOD SPECIMENOrdering Facility: [facility] Address: [address] [place] [address] Performed By: #### 4 8065-7 ####[facility] [id number] [address] Fibrin D-dimer FEU (PPP) [Ma ss/Vol]on 06-23-2022 D DIMER AGE-RELATED CUTOFF 780 ng/mL FEU Normal [facility] Comment on above: Order Comment: Fredy dowd Type: BLOOD SPECIMENOrdering Facility: [facility] Address: [address] [place] [address] Performed By: #### 4 8065-7 ####[facility] [id number] [address] STATES OF [facility] HISTORY PHYSICALon HISTORY PHYSICAL HNO ID: [id number] Author: Leonela Stein MD Service: ? Author Type: Physician Type: HANDP Filed: 06/25/2022 11:00 PM Note Text: [facility] SUGGS, TUGILBERT Kat : 1945 AGE: 76 SEX: F CSN: [id number] [facility]: [facility] LOCATION: [facility] ATTENDING PHYSICIAN: Leonela Stein M.D. DATE [...] melanoma who presents as a transfer from [place] [facility] for weakness and a fall. Her fall occurred at home. Patient's daughter states that she was getting up to go to the bathroom and fell. Unsure if she hit her head or not. Prior to that she was recently admitted for observation at [facility] for generalized weakness and COVID and discharged [...] She was admitted as a transfer to [facility] for further work-up of the above. ASSESSMENT [...] CT finding of the endometrial mass. Consulted Accreditation Coordinator. 5. Acute cystitis. IV ceftriaxone. Urine culture [...] bag 20 mL INTRAVENOUS PRN Dipika Frederick, DIRECTOR OF VOCATIONAL TRAINING.DATA COMMUNICATIONS ANALYST sodium chloride 0.9 % (flush) 3-5 mL (BD POSIFLUSH) 3-5 mL INTRAVENOUS q 12 H Dipika Frederick, DIRECTOR OF VOCATIONAL TRAINING.DATA COMMUNICATIONS ANALYST 3 mL at 06/23/22 1001 acetaminophen 650 mg tab(s) (TYLENOL) 650 mg ORAL q 6 H PRN Dipika Frederick, DIRECTOR OF VOCATIONAL TRAINING.DATA COMMUNICATIONS ANALYST 650 mg at 06/23/22 0340 iiklfwy-bdiwrsnrz-cxbth in D3 500 mg-5 mcg (200 unit) 1 tablet 1 tablet ORAL BID Dipikacaitlin Frederick, DIRECTOR OF VOCATIONAL TRAINING.DATA COMMUNICATIONS ANALYST 1 tablet at 06/23/22 1003 budesonide, enteric coated 6 mg cap(s) (ENTOCORT EC) 6 mg ORAL BEFORE BREAKFAST DAILY Dipika Otoniel, DIRECTOR OF VOCATIONAL TRAINING.DATA COMMUNICATIONS ANALYST 6 mg at 06/23/22 1049 therapeutic multivitamin-minerals tablet (THERA-M PLUS) 1 tablet ORAL DAILY Dipika Otoniel, DIRECTOR OF VOCATIONAL TRAINING.DATA COMMUNICATIONS ANALYST 1 tablet at 06/23/22 1003 meloxicam 7.5 mg tab(s) (MOBIC) 7.5 mg ORAL DAILY Dipika Melyl, DIRECTOR OF VOCATIONAL TRAINING.DATA COMMUNICATIONS ANALYST 7.5 mg at 06/23/22 1003 aspirin, enteric coated 81 mg tab(s) 81 mg ORAL DAILY Dipika Melyl, DIRECTOR OF VOCATIONAL TRAINING.DATA COMMUNICATIONS ANALYST 81 mg at 06/23/22 1003 DULoxetine 30 mg cap(s) (CYMBALTA) 30 mg ORAL AT BEDTIME Dipika Frederick, DIRECTOR OF VOCATIONAL TRAINING.DATA COMMUNICATIONS ANALYST rosuvastatin 5 mg tab(s) (CRESTOR) 5 mg ORAL AT BEDTIME Dipika Frederick APRN.CNP cefTRIAXone iv piggyback 1 g in dextrose (iso-osmotic) 50 mL (ROCEPHIN) 1 g INTRAVENOUS q 24 H Dipika Frederick APRN.DATA COMMUNICATIONS ANALYST Stopped at 06/23/[address] 40 mg tab(s) (PROTONIX) 40 mg ORAL DAILY (6 AM) Dipika Frederick APRN.DATA COMMUNICATIONS ANALYST 40 mg at 06/23/22 0636 potassium (more content not included)... Normal [facility] NURSING PROGon 06-23-2022 NURSING PROG HNO ID: [id number] Author: Danielle Weldon RN Service: Nursing Author Type: Registered Nurse Type: Nursing Progress Note Filed: 06/23/2022 2:09 AM Note Text: Pt admitted to [place] [address] from outside hospital. Pt Aox3, arrived with a damon in place, on RA. Denies any needs at this time. Team paged for orders. Normal [facility] TROPONIN Ton 06-23-2022 Troponin T.cardiac [Mass/Vol] ug/L Normal 0.000-0.029 [facility] Comment on above: Order Comment: Speci men Type: BLOOD SPECIMEN Ordering Facility: [facility] Address: [address] [place] [address] Performed By: #### 2 4323-8, JOSSIE #### [facility] CLIA [id number] [address] [place] [address] [place] MRI BRAIN WO/W IVCONon 05-30 MRI BRAIN WO/W IVCON * * *Final Report* * * DATE OF EXAM: May 30 2022 12:27PM [facility] 0295 - MRI BRAIN WO/W [...] Patent CSF flow study without hyperdynamic flow. Pbx Repairer: TERESA Transcribe Date/Time: May 30 2022 12:45P Dictated by : REHAN MULLER MD This examination was interpreted and the report reviewed and electronically signed by: REHAN MULLER MD on May 30 2022 12:50PM EST [id number] Normal [facility] Absolute lymphocyte counton 05-10-2022 Lymphocytes Auto (Unsp spec) [#/Vol] 1.85 10*3/uL 0.83-4.51 [facility] Work Phone: Basophil percentageon 2021 Basophils/100 WBC (Bld) 0.6 % 0-1 [facility] Work Phone: Bilirubin [Mass/Vol] 0.20 mg/dL 0.20-1.00 [facility] Work Phone: Comment on above: For patients on eltr ombopag therapy, use of Dimension [place] TBIL is not recommended. Chloride [Moles/Vol] 106 mmol/L 98-107 [facility] Work Phone: Eosinophils/100 WBC (Bld) 2.4 % 0-5 [facility] Work Phone: [phone] Glucose [Mass/Vol] 104 mg/dL 74-106 [facility] Work Phone: Comment on above: Fasting Glucose resu lt from 100 to 125 mg/dL suggests IMPAIRED HOMEOSTASIS per A.D.A. criteria. Neutrophils (Bld) [#/Vol] 3.9 10*3/uL 2.0-7.7 [facility] Work Phone: Neutrophils/100 WBC (Bld) 61.4 % 47-70 [facility] Work Phone: [phone] Potassium [Moles/Vol] 3.8 mmol/L 3.5-5.1 [facility] Work Phone: Protein [Mass/Vol] 6.9 g/dL 6.4-8.2 [facility] Work Phone: Sodium [Moles/Vol] 138 mmol/L 136-145 [facility] Work Phone: WBC (Bld) [#/Vol] 6.4 10*3/uL 4.4-11.0 [facility] Work Phone: Blood erythrocytes count (nu mber/volume)on 05-10-2022 RBC (Bld) [#/Vol] 4.70 10*6/uL 4.2-5.4 [facility] Work Phone: Blood hemoglobin measurement (mass/volume)on 05-10-2022 Hemoglobin (Bld) [Mass/Vol] 13.4 g/dL 12.0-15.0 [facility] Work Phone: Blood lymphocytes/100 leukoc yteson 05-10-2022 Lymphocytes/100 WBC (Bld) 29.0 % 19-41 [facility] Work Phone: Blood monocytes/100 leukocyt eson 05-10-2022 Monocytes/100 WBC (Bld) 6.3 % 0-10 [facility] Work Phone: Blood platelet mean volumeon 05-10-2022 Platelet mean volume (Bld) [Entitic vol] 10.3 fL 6.2-12.0 [facility] Work Phone: Determination of erythrocyte mean corpuscular volume (MCV)on 05-10-2022 MCV (RBC) [Entitic vol] 88.1 fL 81-99 [facility] Work Phone: Hematocrit Auto (Bld) [Volum e fraction]on 05-10-2022 Hematocrit (Bld) [Volume fraction] 41.4 % 37-47 [facility] Work Phone: Laboratory - Chemistry and C hemistry - challengeon 05-10-2022 ALP [Catalytic activity/Vol] 73 U/L 45-117 [facility] Work Phone: ALT [Catalytic activity/Vol] 21 U/L 13-56 [facility] Work Phone: CO2 [Moles/Vol] 25.0 mmol/L 21.0-32.0 [facility] Work Phone: Globulin (S) [Mass/Vol] 3.6 g/dL 2.2-4.2 [facility] Work Phone: [phone] Lipase [Catalytic activity/Vol] 198 U/L 73-393 [facility] Work Phone: Urea nitrogen/Creatinine [Mass ratio] 24.3 mg/mg 10-20 [facility] Work Phone: Laboratory - Hematology and Cell countson 05-10-2022 Erythrocyte distribution width (RBC) [Entitic vol] 46.7 fL 35.1-43.9 [facility] Work Phone: Erythrocyte distribution width (RBC) [Ratio] 14.6 % 11.6-14.6 [facility] Work Phone: Immature granulocytes/100 WBC (Bld) 0.300 % 0.0-0.9 [facility] Work Phone: Comment on above: IG% - Immature Granu locytes (promyelocytes, myelocytes and metamyelocytes) > 1% indicates that a LEFT SHIFT is Present. MCH (RBC) [Entitic mass] 28.5 pg 27.0-32.0 [facility] Work Phone: Nucleated RBC/100 WBC (Bld) [Ratio] 0 % 0-5 [facility] Work Phone: MCHC Auto (RBC) [Mass/Vol]on 05-10-2022 MCHC (RBC) [Mass/Vol] 32.4 g/dL 32-36 [facility] Work Phone: No Panel Informationon 05-10 Estimated GFR (MDRD) Amer 91 mL/min >60 [facility] Work Phone: Comment on above: GFR Calc Estimated GFR (MDRD) Non-Af Amer 75 mL/min >60 [facility] Work Phone: Comment on above: Non- GFR Calc Platelets bldon 05-10-2022 Platelets (Bld) [#/Vol] 195 10*3/uL 150-450 [facility] Work Phone: Serum or plasma albumin ana laura urement (mass/volume)on 05-10-2022 Albumin [Mass/Vol] 3.3 g/dL 3.2-5.0 [facility] Work Phone: Serum or plasma albumin/glob ulin mass ratioon 05-10-2022 Albumin/Globulin [Mass ratio] 0.9 {ratio} 0.9-2.4 [facility] Work Phone: Serum or plasma calcium ana laura urement (mass/volume)on 05-10-2022 Calcium [Mass/Vol] 8.9 mg/dL 8.5-10.1 [facility] Work Phone: Serum or plasma creatinine m easurement (mass/volume)on 05-10-2022 Creatinine [Mass/Vol] 0.78 mg/dL 0.55-1.02 [facility] Work Phone: Comment on above: The validity of the calculated GFR & GFRAA in patients over 70 years has not been determined. Clinical correlation is essential. Serum or plasma urea nitroge n measurement (mass/volume)on 05-10-2022 Urea nitrogen [Mass/Vol] 19 mg/dL 7-18 [facility] Work Phone: Thin prep Papanicolaou smear with manual screeningon 05-10-2022 Thin prep Papanicolaou smear with manual screening 19 U/L 15-37 [facility] Work Phone: Thin prep Papanicolaou smear with manual screening 7 5-15 [facility] Work Phone: Absolute lymphocyte counton 04-16-2022 Lymphocytes Auto (Unsp spec) [#/Vol] 1.06 10*3/uL 0.83-4.51 [facility] Work Phone: Basophil percentageon 2021 Basophils/100 WBC (Bld) 0.5 % 0-1 [facility] Work Phone: Bilirubin [Mass/Vol] 0.40 mg/dL 0.20-1.00 [facility] Work Phone: Comment on above: For patients on eltr ombopag therapy, use of Dimension [place] TBIL is not recommended. Chloride [Moles/Vol] 104 mmol/L 98-107 [facility] Work Phone: Eosinophils/100 WBC (Bld) 3.1 % 0-5 [facility] Work Phone: Glucose [Mass/Vol] 105 mg/dL 74-106 [facility] Work Phone: Comment on above: Fasting Glucose resu lt from 100 to 125 mg/dL suggests IMPAIRED HOMEOSTASIS per A.D.A. criteria. Neutrophils (Bld) [#/Vol] 4.3 10*3/uL 2.0-7.7 [facility] Work Phone: Neutrophils/100 WBC (Bld) 70.0 % 47-70 [facility] Work Phone: Potassium [Moles/Vol] 4.2 mmol/L 3.5-5.1 [facility] Work Phone: Protein [Mass/Vol] 7.0 g/dL 6.4-8.2 [facility] Work Phone: Sodium [Moles/Vol] 140 mmol/L 136-145 [facility] Work Phone: WBC (Bld) [#/Vol] 6.1 10*3/uL 4.4-11.0 [facility] Work Phone: Bilirubin Test strip Ql (U)o n 04-16-2022 Bilirubin Ql (U) Negative Negative [facility] Work Phone: Blood erythrocytes count (nu mber/volume)on 04-16-2022 RBC (Bld) [#/Vol] 4.56 10*6/uL 4.2-5.4 [facility] Work Phone: Blood hemoglobin measurement (mass/volume)on 04-16-2022 Hemoglobin (Bld) [Mass/Vol] 13.6 g/dL 12.0-15.0 [facility] Work Phone: Blood lymphocytes/100 leukoc yteson 04-16-2022 Lymphocytes/100 WBC (Bld) 17.5 % 19-41 [facility] Work Phone: Blood monocytes/100 leukocyt eson 04-16-2022 Monocytes/100 WBC (Bld) 8.6 % 0-10 [facility] Work Phone: Blood platelet mean volumeon 04-16-2022 Platelet mean volume (Bld) [Entitic vol] 10.8 fL 6.2-12.0 [facility] Work Phone: Determination of erythrocyte mean corpuscular volume (MCV)on 04-16-2022 MCV (RBC) [Entitic vol] 89.5 fL 81-99 [facility] Work Phone: Hematocrit Auto (Bld) [Volum e fraction]on 04-16-2022 Hematocrit (Bld) [Volume fraction] 40.8 % 37-47 [facility] Work Phone: Ketones Test strip Ql (U)on 04-16-2022 Ketones Ql (U) Negative Negative [facility] Work Phone: Laboratory - Chemistry and C hemistry - challengeon 04-16-2022 ALP [Catalytic activity/Vol] 65 U/L 45-117 [facility] Work Phone: ALT [Catalytic activity/Vol] 23 U/L 13-56 [facility] Work Phone: CO2 [Moles/Vol] 30.0 mmol/L 21.0-32.0 [facility] Work Phone: Globulin (S) [Mass/Vol] 3.9 g/dL 2.2-4.2 [facility] Work Phone: Urea nitrogen/Creatinine [Mass ratio] 17.2 mg/mg 10-20 [facility] Work Phone: Laboratory - Hematology and Cell countson 04-16-2022 Erythrocyte distribution width (RBC) [Entitic vol] 48.8 fL 35.1-43.9 [facility] Work Phone: Erythrocyte distribution width (RBC) [Ratio] 14.8 % 11.6-14.6 [facility] Work Phone: Immature granulocytes/100 WBC (Bld) 0.300 % 0.0-0.9 [facility] Work Phone: Comment on above: IG% - Immature Granu locytes (promyelocytes, myelocytes and metamyelocytes) > 1% indicates that a LEFT SHIFT is Present. MCH (RBC) [Entitic mass] 29.8 pg 27.0-32.0 [facility] Work Phone: Nucleated RBC/100 WBC (Bld) [Ratio] 0 % 0-5 [facility] Work Phone: MCHC Auto (RBC) [Mass/Vol]on 04-16-2022 MCHC (RBC) [Mass/Vol] 33.3 g/dL 32-36 [facility] Work Phone: Nitrite Test strip Ql (U)on 04-16-2022 Nitrite Ql (U) Negative Negative [facility] Work Phone: No Panel Informationon 04-16 Estimated GFR (MDRD) Amer 81 mL/min >60 [facility] Work Phone: Comment on above: GFR Calc Estimated GFR (MDRD) Non-Af Amer 67 mL/min >60 [facility] Work Phone: Comment on above: Non- GFR Calc Thyroid Stimulating Hormone (TSH) 2.12 uIU/mL 0.358-3.74 [facility] Work Phone: Platelets bldon 04-16-2022 Platelets (Bld) [#/Vol] 189 10*3/uL 150-450 [facility] Work Phone: Protein Test strip Ql (U)on 04-16-2022 Protein Ql (U) Negative Negative [facility] Work Phone: Serum or plasma albumin ana laura urement (mass/volume)on 04-16-2022 Albumin [Mass/Vol] 3.1 g/dL 3.2-5.0 [facility] Work Phone: Serum or plasma albumin/glob ulin mass ratioon 04-16-2022 Albumin/Globulin [Mass ratio] 0.8 {ratio} 0.9-2.4 [facility] Work Phone: Serum or plasma calcium ana laura urement (mass/volume)on 04-16-2022 Calcium [Mass/Vol] 9.2 mg/dL 8.5-10.1 [facility] Work Phone: Serum or plasma creatinine m easurement (mass/volume)on 04-16-2022 Creatinine [Mass/Vol] 0.87 mg/dL 0.55-1.02 [facility] Work Phone: Comment on above: The validity of the calculated GFR & GFRAA in patients over 70 years has not been determined. Clinical correlation is essential. Serum or plasma urea nitroge n measurement (mass/volume)on 04-16-2022 Urea nitrogen [Mass/Vol] 15 mg/dL 7-18 [facility] Work Phone: Thin prep Papanicolaou smear with manual screeningon 04-16-2022 Thin prep Papanicolaou smear with manual screening 17 U/L 15-37 [facility] Work Phone: Thin prep Papanicolaou smear with manual screening 6 5-15 [facility] Work Phone: Urine blood detectionon 03-22 RBC Ql (U) Negative Negative [facility] Work Phone: Urine clarityon 04-16-2022 Clarity (U) Clear Clear [facility] Work Phone: Urine color determinationon 04-16-2022 Color (U) Yellow Yellow [facility] Work Phone: Urine glucose detectionon Glucose Ql (U) Normal mg/dl Normal [facility] Work Phone: Urine leukocyte esterase det ection by dipstickon 04-16-2022 Leukocyte esterase Test strip Ql (U) Negative Negative [facility] Work Phone: Urine pHon 04-16-2022 pH (U) 8.0 [pH] 5.0 - 8.0 [facility] Work Phone: Urine specific gravity measu rementon 04-16-2022 Specific gravity (U) [Rel density] 1.010 1.002-1.030 [facility] Work Phone: Urobilinogen Auto test strip Ql (U)on 04-16-2022 Urobilinogen Ql (U) Normal mg/dl Normal [facility] Work Phone: No Panel Informationon 11-01 Whole Blood Vitamin B1 Level 123.2 nmol/L 66.5-200.0 [facility] Work Phone: Comment on above: Performed at: [address] [id number] Director: Lucio Khan MD, Phone: [phone] Serum or plasma folate measu rement (mass/volume)on 11-01-2021 Folate [Mass/Vol] 56.00 ng/mL 3.1-55.4 [facility] Work Phone: No Panel Informationon 10-24 Thyroid Stimulating Hormone (TSH) 2.76 uIU/mL 0.358-3.74 [facility] Work Phone: Absolute lymphocyte counton 10-04-2021 Lymphocytes Auto (Unsp spec) [#/Vol] 1.83 10*3/uL 0.83-4.51 [facility] Work Phone: Atypical perinuclear antineu trophil cytoplasmic antibodies measurementon 10-04-2021 Neutrophil cytoplasmic Ab.perinuclear.atypical IF (S) [Titer] <1:20 titer Neg:<1:20 [facility] Work Phone: Comment on above: The atypical pANCA p attern has been observed in asignificant percentage of patients with ulcerative colitis,primary sclerosing cholangitis and autoimmune hepatitis. Basophil percentageon 2021 Basophil percentage < 0.2 AI 0.0-0.9 [facility] Work Phone: Basophils/100 WBC (Bld) 0.6 % 0-1 [facility] Work Phone: Bilirubin [Mass/Vol] 0.20 mg/dL 0.20-1.00 [facility] Work Phone: Comment on above: For patients on eltr ombopag therapy, use of Dimension [place] TBIL is not recommended. Chloride [Moles/Vol] 106 mmol/L 98-107 [facility] Work Phone: Eosinophils/100 WBC (Bld) 1.2 % 0-5 [facility] Work Phone: Glucose [Mass/Vol] 101 mg/dL 74-106 [facility] Work Phone: Comment on above: Fasting Glucose resu lt from 100 to 125 mg/dL suggests IMPAIRED HOMEOSTASIS per A.D.A. criteria. Neutrophils (Bld) [#/Vol] 4.1 10*3/uL 2.0-7.7 [facility] Work Phone: Neutrophils/100 WBC (Bld) 63.4 % 47-70 [facility] Work Phone: Potassium [Moles/Vol] 4.2 mmol/L 3.5-5.1 [facility] Work Phone: Protein [Mass/Vol] 7.2 g/dL 6.4-8.2 [facility] Work Phone: Sodium [Moles/Vol] 137 mmol/L 136-145 [facility] Work Phone: WBC (Bld) [#/Vol] 6.4 10*3/uL 4.4-11.0 [facility] Work Phone: [phone] Blood erythrocytes count (nu mber/volume)on 10-04-2021 RBC (Bld) [#/Vol] 4.84 10*6/uL 4.2-5.4 [facility] Work Phone: Blood hemoglobin measurement (mass/volume)on 10-04-2021 Hemoglobin (Bld) [Mass/Vol] 14.3 g/dL 12.0-15.0 [facility] Work Phone: [phone] Blood lymphocytes/100 leukoc yteson 10-04-2021 Lymphocytes/100 WBC (Bld) 28.4 % 19-41 [facility] Work Phone: [phone] Blood monocytes/100 leukocyt eson 03-17-2022 Monocytes/100 WBC (Bld) 6.2 % 0-10 [facility] Work Phone: Blood platelet mean volumeon 10-04-2021 Platelet mean volume (Bld) [Entitic vol] 10.0 fL 6.2-12.0 [facility] Work Phone: Determination of erythrocyte mean corpuscular volume (MCV)on 10-04-2021 MCV (RBC) [Entitic vol] 87.4 fL 81-99 [facility] Work Phone: Erythrocyte sedimentation ra stan 10-04-2021 ESR (Bld) [Velocity] 28 mm/h 0-30 [facility] Work Phone: Hematocrit Auto (Bld) [Volum e fraction]on 10-04-2021 Hematocrit (Bld) [Volume fraction] 42.3 % 37-47 [facility] Work Phone: Laboratory - Chemistry and C hemistry - challengeon 10-04-2021 ALP [Catalytic activity/Vol] 75 U/L 45-117 [facility] Work Phone: ALT [Catalytic activity/Vol] 24 U/L 13-56 [facility] Work Phone: CK [Catalytic activity/Vol] 93 U/L 26-192 [facility] Work Phone: CO2 [Moles/Vol] 28.0 mmol/L 21.0-32.0 [facility] Work Phone: Cobalamin (Vitamin B12) [Mass/Vol] 922 pg/mL 211-911 [facility] Work Phone: Globulin (S) [Mass/Vol] 3.6 g/dL 2.2-4.2 [facility] Work Phone: Urea nitrogen/Creatinine [Mass ratio] 24.0 mg/mg 10-20 [facility] Work Phone: Laboratory - Hematology and Cell countson 10-04-2021 Erythrocyte distribution width (RBC) [Entitic vol] 45.0 fL 35.1-43.9 [facility] Work Phone: Erythrocyte distribution width (RBC) [Ratio] 14.0 % 11.6-14.6 [facility] Work Phone: Immature granulocytes/100 WBC (Bld) 0.200 % 0.0-0.9 [facility] Work Phone: Comment on above: IG% - Immature Granu locytes (promyelocytes, myelocytes and metamyelocytes) > 1% indicates that a LEFT SHIFT is Present. MCH (RBC) [Entitic mass] 29.5 pg 27.0-32.0 [facility] Work Phone: Nucleated RBC/100 WBC (Bld) [Ratio] 0 % 0-5 [facility] Work Phone: MCHC Auto (RBC) [Mass/Vol]on 10-04-2021 MCHC (RBC) [Mass/Vol] 33.8 g/dL 32-36 [facility] Work Phone: No Panel Informationon 10-04 Centromere B Antibody <0.2 AI 0.0-0.9 [facility] Work Phone: Estimated GFR (MDRD) Amer 76 mL/min >60 [facility] Work Phone: Comment on above: GFR Calc Estimated GFR (MDRD) Non-Af Amer 63 mL/min >60 [facility] Work Phone: Comment on above: Non- GFR Calc Immunoglobulin E 7 IU/mL 6-495 [facility] Work Phone: CHUTE OPERATOR Antibody <0.2 AI 0.0-0.9 [facility] Work Phone: Thyroid Stimulating Hormone (TSH) 2.87 uIU/mL 0.358-3.74 [facility] Work Phone: Vitamin D 25-Hydroxy 62.3 ng/mL [facility] Work Phone: Comment on above: Vitamin D 25(OH) Sta tus Range Deficiency <20 ng/mL (50nmol/L) Insufficiency 20 - 30 ng/mL (50 - 75 nmol/L) Sufficiency 30 - 100 ng/mL (75 - 250 nmol/L) Toxicity >100 ng/mL (>250 nmol/L) Platelets bldon 10-04-2021 Platelets (Bld) [#/Vol] 187 10*3/uL 150-450 [facility] Work Phone: Serum DNA double strand anti body assay (units/volume)on 10-04-2021 DNA double strand Ab Qn (S) [IU]/mL 0-9 [facility] Work Phone: Comment on above: Negative <5 Equivoca l 5 - 9 Positive >9 Serum Khushboo-1 antibody assay (u nits/volume)on 10-04-2021 Khushboo-1 extractable nuclear Ab Qn (S) <0.2 AI 0.0-0.9 [facility] Work Phone: Serum Scl-70 extractable nuc lear antibody assay (units/volume)on 10-04-2021 SCL-70 extractable nuclear Ab Qn (S) 0.3 AI 0.0-0.9 [facility] Work Phone: Serum Garcia extractable nucl ear antibody detectionon 10-04-2021 Garcia extractable nuclear Ab Ql (S) <0.2 AI 0.0-0.9 [facility] Work Phone: Serum classic neutrophil cyt oplasmic antibody assay (units/volume)on 10-04-2021 Neutrophil cytoplasmic Ab.classic Qn (S) <1:20 titer Neg:<1:20 [facility] Work Phone: Serum or plasma C reactive p rotein measurement (mass/volume)on 10-04-2021 CRP [Mass/Vol] mg/L 0.0-3.0 [facility] Work Phone: Comment on above: C-Reactive Protein ( CRP) provides useful information for thediagnosis, therapy and monitoring of inflammatory processesand associated diseases. For the evaluation of Relative Riskfor Cardiovascular Disease, a High Sensitivity CRP (HSCRP)should be ordered. Serum or plasma IgA measurem ent (mass/volume)on 10-04-2021 IgA [Mass/Vol] 167 mg/dL 64-422 [facility] Work Phone: Serum or plasma IgG measurem ent (mass/volume)on 10-04-2021 IgG [Mass/Vol] 1030 mg/dL [phone] [facility] Work Phone: Serum or plasma IgM measurem ent (mass/volume)on 10-04-2021 IgM [Mass/Vol] 134 mg/dL 26-217 [facility] Work Phone: Comment on above: Performed at: [facility] [address] [id number] Director: Tavo Delcid PhD, Phone: [phone] at: - [facility] [id number] Director: Lucio Khan MD, Phone: [phone] Serum or plasma albumin ana laura urement (mass/volume)on 10-04-2021 Albumin [Mass/Vol] 3.6 g/dL 3.2-5.0 [facility] Work Phone: Serum or plasma albumin/glob ulin mass ratioon 10-04-2021 Albumin/Globulin [Mass ratio] 1.0 {ratio} 0.9-2.4 [facility] Work Phone: Serum or plasma calcium ana laura urement (mass/volume)on 10-04-2021 Calcium [Mass/Vol] 8.9 mg/dL 8.5-10.1 [facility] Work Phone: Serum or plasma creatinine m easurement (mass/volume)on 10-04-2021 Creatinine [Mass/Vol] 0.92 mg/dL 0.55-1.02 [facility] Work Phone: Comment on above: The validity of the calculated GFR & GFRAA in patients over 70 years has not been determined. Clinical correlation is essential. Serum or plasma urea nitroge n measurement (mass/volume)on 10-04-2021 Urea nitrogen [Mass/Vol] 22 mg/dL 7-18 [facility] Work Phone: Serum perinuclear neutrophil cytoplasmic antibody titer by immunofluorescenceon 10-04-2021 Neutrophil cytoplasmic Ab.perinuclear IF (S) [Titer] <1:20 titer Neg:<1:20 [facility] Work Phone: Comment on above: The presence of posi tive fluorescence exhibiting P-ANCA orC-ANCA patterns alone is not specific for the diagnosis ofWegener's Granulomatosis (WG) or microscopic polyangiitis.Decisions about treatment should not be based solely onANCA IFA results. The [employer] ANCA [employer] Consensusrecommends follow up testing of positive sera with both NC-3 and MPO-ANCA enzyme immunoassays. As many as 5% serumsamples are positive only by EIA. Ref. AM J Clin Lrmaty7567;111:507-513. Thin prep Papanicolaou smear with manual screeningon 10-04-2021 Thin prep Papanicolaou smear with manual screening 20 U/L 15-37 [facility] Work Phone: Thin prep Papanicolaou smear with manual screening 3 5-15 [facility] Work Phone: Thin prep Papanicolaou smear with manual screening 329 U/L 84-246 [facility] Work Phone: Basophil percentageon 2021 Chloride [Moles/Vol] 108 mmol/L 98-107 [facility] Work Phone: Cholesterol [Mass/Vol] 251 mg/dL <200 [facility] Work Phone: Comment on above: <200 mg/dL Desirable 200-240 mg/dL Borderline >240 mg/dL High Risk Glucose [Mass/Vol] 84 mg/dL 74-106 [facility] Work Phone: Potassium [Moles/Vol] 3.8 mmol/L 3.5-5.1 [facility] Work Phone: Sodium [Moles/Vol] 140 mmol/L 136-145 [facility] Work Phone: Triglyceride [Mass/Vol] 128 mg/dL <199 [facility] Work Phone: Comment on above: The drugs N-Acetylcy steine and Metamizole may falsely depress this assay.Serum Triglycerides Reference Interval Normal <150 mg/dL Borderline high 150 - 199 mg/dL High 200 - 499 mg/dL Very High > or = 500 mg/dL Erythrocyte sedimentation ra stan 09-21-2021 ESR (Bld) [Velocity] 18 mm/h 0-30 [facility] Work Phone: Laboratory - Chemistry and C hemistry - challengeon 09-21-2021 CO2 [Moles/Vol] 28.0 mmol/L 21.0-32.0 [facility] Work Phone: Urea nitrogen/Creatinine [Mass ratio] 22.4 mg/mg 10-20 [facility] Work Phone: No Panel Informationon 09-21 Anti-Nuclear Antibody Screen Negative Negative [facility] Work Phone: Comment on above: Performed at: - [place] [id number] Director: Tavo Delcid PhD, Phone: [phone] Estimated GFR (MDRD) Amer 84 mL/min >60 [facility] Work Phone: Comment on above: GFR Calc Estimated GFR (MDRD) Non-Af Amer 69 mL/min >60 [facility] Work Phone: Comment on above: Non- GFR Calc Vitamin D 25-Hydroxy 45.7 ng/mL [facility] Work Phone: Comment on above: Vitamin D 25(OH) Sta tus Range Deficiency <20 ng/mL (50nmol/L) Insufficiency 20 - 30 ng/mL (50 - 75 nmol/L) Sufficiency 30 - 100 ng/mL (75 - 250 nmol/L) Toxicity >100 ng/mL (>250 nmol/L) Serum DNA double strand anti body assay (units/volume)on 09-21-2021 DNA double strand Ab Qn (S) [IU]/mL 0-9 [facility] Work Phone: Comment on above: Negative <5 Equivoca l 5 - 9 Positive >9 Serum or plasma calcium ana laura urement (mass/volume)on 09-21-2021 Calcium [Mass/Vol] 9.2 mg/dL 8.5-10.1 [facility] Work Phone: Serum or plasma cholesterol in HDL measurement (mass/volume)on 09-21-2021 Cholesterol in HDL [Mass/Vol] 53 mg/dL >40 [facility] Work Phone: Comment on above: The drugs N-Acetylcy steine and Metamizole may falsely depress this assay. Reference Range HDL <40 mg/dL Low HDL Cholesterol HDL >or= 60 mg/dL High HDL Cholesterol Serum or plasma cholesterol in VLDL measurement (mass/volume)on 09-21-2021 Cholesterol in VLDL [Mass/Vol] 26 mg/dL 5-40 [facility] Work Phone: Serum or plasma creatinine m easurement (mass/volume)on 09-21-2021 Creatinine [Mass/Vol] 0.85 mg/dL 0.55-1.02 [facility] Work Phone: Comment on above: The validity of the calculated GFR & GFRAA in patients over 70 years has not been determined. Clinical correlation is essential. Serum or plasma low density lipoprotein (LDL) cholesterol measurement (mass/volume)on 09-21-2021 Cholesterol in LDL [Mass/Vol] 172 mg/dL 0-130 [facility] Work Phone: Serum or plasma urea nitroge n measurement (mass/volume)on 09-21-2021 Urea nitrogen [Mass/Vol] 19 mg/dL 7-18 [facility] Work Phone: Thin prep Papanicolaou smear with manual screeningon 09-21-2021 Thin prep Papanicolaou smear with manual screening 4 5-15 [facility] Work Phone: XR Hand - bilateral PA and L ateral and Obliqueon 05-18-2021 IMPRESSION: 1. Degenerative arthrosis of both hands. Pbx Repairer: TERESA Transcribe Date/Time: May 18 2021 12:43P Dictated by : AUGUSTINE TAYLOR MD This examination was interpreted and the report reviewed and electronically signed by: AUGUSTINE TAYLOR MD on May 18 2021 12:45PM [facility] DIVISION OF RADIOLOGY * * *Final [...] distal interphalangeal joints. DIVISION OF RADIOLOGY Provider, [facility] - 05/18/2021 * * *Final Report* * [...] IMPRESSION: 1. Degenerative arthrosis of both hands. Pbx Repairer: TERESA Transcribe Date/Time: May 18 2021 12:43P Dictated by : AUGUSTINE TAYLOR MD This examination was interpreted and the report reviewed and electronically signed by: AUGUSTINE TAYLOR MD on May 18 2021 12:45PM EST [facility] Radiology Study observation (narrative) [facility] XR Hand - bilateral PA and L ateral and ObliqueOrdered By: [facility] Provider on 05-18-2021 [facility] Vital Signs Date Time Vital Sign Value Performing Clinician Facility 09-21-2024 10:55-0500 Body height 162.6 cm Jean Rodríguez MD Work Phone: [facility] 09-21-2024 10:55-0500 Body mass index (BMI) [Ratio] 29.9 kg/m2 Jean Rodríguez MD Work Phone: [facility] 09-21-2024 10:55-0500 Body weight 79 kg Jean Rodríguez MD Work Phone: [facility] 09-21-2024 10:55-0500 Diastolic blood pressure 79 mm[Hg] Jean Rodríguez MD Work Phone: [facility] 09-21-2024 10:55-0500 Heart rate 82 /min Jean Rodríguez MD Work Phone: [facility] 09-21-2024 10:55-0500 Respiratory rate 16 /min Jean Rodríguez MD Work Phone: [facility] 09-21-2024 10:55-0500 SaO2% (BldA) [Mass fraction] 98 % Jean Rodríguez MD Work Phone: [facility] 09-21-2024 10:55-0500 Systolic blood pressure 121 mm[Hg] Jean Rodríguez MD Work Phone: [facility] 01-30-2024 13:30-0400 Body height 162.6 cm Jean Rodríguez MD Work Phone: [facility] 01-30-2024 13:30-0400 Body mass index (BMI) [Ratio] 29.63 kg/m2 Jean Rodríguez MD Work Phone: [facility] 01-30-2024 13:30-0400 Body weight 78.3 kg Jean Rodríguez MD Work Phone: [facility] 01-30-2024 13:30-0400 Diastolic blood pressure 79 mm[Hg] Jean Rodríguez MD Work Phone: [facility] 01-30-2024 13:30-0400 Heart rate 79 /min Jean Rodríguez MD Work Phone: [facility] 01-30-2024 13:30-0400 Respiratory rate 16 /min Jean Rodríguez MD Work Phone: [facility] 01-30-2024 13:30-0400 SaO2% (BldA) [Mass fraction] 97 % Jean Rodríguez MD Work Phone: [facility] 01-30-2024 13:30-0400 Systolic blood pressure 130 mm[Hg] Jean Rodríguez MD Work Phone: [facility] 01-24-2023 14:13-0400 Body height 160 cm Jean Rodríguez MD Work Phone: [facility] 01-24-2023 14:13-0400 Body weight 78.4 kg Jean Rodríguez MD Work Phone: [facility] 01-24-2023 14:13-0400 Diastolic blood pressure 84 mm[Hg] Jean Rodríguez MD Work Phone: [facility] 01-24-2023 14:13-0400 Heart rate 75 /min Jean Rodríguez MD Work Phone: [facility] 01-24-2023 14:13-0400 SaO2% (BldA) [Mass fraction] 98 % Jean Rodríguez MD Work Phone: [facility] 01-24-2023 14:13-0400 Systolic blood pressure 122 mm[Hg] Jean Rodríguez MD Work Phone: [facility] 01-13-2023 14:190400 Body height 161.[address] Lilo Grullon Work Phone: [facility] 01-13-2023 14:190400 Body mass index (BMI) [Ratio] 30.3 kg/m2 Dr. Lilo Grullon Work Phone: [facility] 01-13-2023 14:19-0400 Body temperature 98.6 [degF] Dr. Lilo Grullon Work Phone: [facility] 01-13-2023 14:190400 Body weight 79.[address] Lilo Grullon Work Phone: [facility] 01-13-2023 14:19-0400 Diastolic blood pressure 72 mm[Hg] Dr. Lilo Grullon Work Phone: [facility] 01-13-2023 14:19-0400 Heart rate 91 /min Dr. Lilo Grullon Work Phone: [facility] 01-13-2023 14:19-0400 Respiratory rate 17 /min Dr. Lilo Grullon Work Phone: [facility] 01-13-2023 14:19-0400 SaO2% (BldA) [Mass fraction] 97 % Dr. Lilo Grullon Work Phone: [facility] 01-13-2023 14:19-0400 Systolic blood pressure 112 mm[Hg] Dr. Lilo Grullon Work Phone: [facility] 12-20-2022 10:23-0400 Body height 160 cm Jean Rodríguez MD Work Phone: [facility] 12-20-2022 10:23-0400 Body weight 77.6 kg Jean Rodríguez MD Work Phone: [facility] 12-20-2022 10:23-0400 Diastolic blood pressure 76 mm[Hg] Jean Rodríguez MD Work Phone: [facility] 12-20-2022 10:23-0400 Heart rate 79 /min Jean Rodríguez MD Work Phone: [facility] 12-20-2022 10:23-0400 SaO2% (BldA) [Mass fraction] 96 % Jean Rodríguez MD Work Phone: [facility] 12-20-2022 10:23-0400 Systolic blood pressure 121 mm[Hg] Jean Rodríguez MD Work Phone: [facility] 11-28-2022 15:30-0400 Diastolic blood pressure 76 mm[Hg] Dr. Lilo Grullon Work Phone: [facility] 11-28-2022 15:30-0400 Heart rate 76 /min Dr. Lilo Grullon Work Phone: [facility] 11-28-2022 15:30-0400 Respiratory rate 16 /min Dr. Lilo Grullon Work Phone: [facility] 11-28-2022 15:30-0400 SaO2% (BldA) [Mass fraction] 98 % Dr. Lilo Grullon Work Phone: [facility] 11-28-2022 15:30-0400 Systolic blood pressure 122 mm[Hg] Dr. Lilo Grullon Work Phone: [facility] 11-28-2022 13:19-0400 Body temperature 96.8 [degF] Dr. Lilo Grullon Work Phone: [facility] Rehabilitation 11-28-2022 12:32-0400 Inhaled oxygen flow rate 6 L/min Dr. Lilo Grullon Work Phone: [facility] 11-28-2022 10:09-0400 Body height 161.[address] Lilo Grullon Work Phone: [facility] 11-28-2022 10:09-0400 Body mass index (BMI) [Ratio] 30.1 kg/m2 Dr. Lilo Grullon Work Phone: [facility] 11-28-2022 10:09-0400 Body weight 78.[address] Lilo Grullon Work Phone: [facility] 11-19-2022 13:46-0400 Body height 160.[address] Lilo Grullon Work Phone: [facility] 11-19-2022 13:46-0400 Body mass index (BMI) [Ratio] 30.7 kg/m2 Dr. Lilo Grullon Work Phone: [facility] 11-19-2022 13:46-0400 Body temperature 97.1 [degF] Dr. Lilo Grullon Work Phone: [facility] 11-19-2022 13:46-0400 Body weight 78.[address] Lilo Grullon Work Phone: [facility] 11-19-2022 13:46-0400 Diastolic blood pressure 81 mm[Hg] Dr. Lilo Grullon Work Phone: [facility] 11-19-2022 13:46-0400 Heart rate 69 /min Dr. Lilo Grullon Work Phone: [facility] 11-19-2022 13:46-0400 Respiratory rate 17 /min Dr. Lilo Grullon Work Phone: [facility] 11-19-2022 13:46-0400 SaO2% (BldA) [Mass fraction] 98 % Dr. Lilo Grullon Work Phone: [facility] 11-19-2022 13:46-0400 Systolic blood pressure 146 mm[Hg] Dr. Lilo Grullon Work Phone: [facility] 11-13-2022 14:10-0400 Body height 160 cm Jean Rodríguez MD Work Phone: [facility] 11-13-2022 14:10-0400 Body weight 77.6 kg Jean Rodríguez MD Work Phone: [facility] 11-13-2022 14:10-0400 Diastolic blood pressure 92 mm[Hg] Jean Rodríguez MD Work Phone: [facility] 11-13-2022 14:10-0400 Heart rate 79 /min Jean Rodríguez MD Work Phone: [facility] 11-13-2022 14:10-0400 SaO2% (BldA) [Mass fraction] 97 % Jean Rodríguez MD Work Phone: [facility] 11-13-2022 14:10-0400 Systolic blood pressure 135 mm[Hg] Jean Rodríguez MD Work Phone: [facility] 10-30-2022 10:56-0400 Body height 160 cm Jean Rodríguez MD Work Phone: [facility] 10-30-2022 10:56-0400 Body weight 77.56 kg Jean Rodríguez MD Work Phone: [facility] 10-30-2022 10:56-0400 Diastolic blood pressure 76 mm[Hg] Jean Rodríguez MD Work Phone: [facility] 10-30-2022 10:56-0400 Heart rate 80 /min Jean Rodríguez MD Work Phone: [facility] 10-30-2022 10:56-0400 Respiratory rate 18 /min Jean Rodríguez MD Work Phone: [facility] 10-30-2022 10:56-0400 SaO2% (BldA) [Mass fraction] 95 % Jean Rodríguez MD Work Phone: [facility] 10-30-2022 10:56-0400 Systolic blood pressure 114 mm[Hg] Jean Rodríguez MD Work Phone: [facility] 10-03-2022 10:23-0400 Body height 161.3 cm Pst 1 [facility] 10-03-2022 10:23-0400 Body temperature 96.8 [degF] Pst 1 [facility] 10-03-2022 10:23-0400 Body weight 75.48 kg Pst 1 [facility] 10-03-2022 10:23-0400 Diastolic blood pressure 85 mm[Hg] Pst 1 [facility] 10-03-2022 10:23-0400 Heart rate 92 /min Pst 1 [facility] 10-03-2022 10:23-0400 Respiratory rate 16 /min Pst 1 [facility] 10-03-2022 10:23-0400 SaO2% (BldA) [Mass fraction] 96 % Pst 1 [facility] 10-03-2022 10:23-0400 Systolic blood pressure 131 mm[Hg] Pst 1 [facility] 09-26-2022 14:09-0500 Body height 165.1 cm Jean Rodríguez MD Work Phone: [facility] 09-26-2022 14:09-0500 Body weight 78.9 kg Jean Rodríguez MD Work Phone: [facility] 09-26-2022 14:09-0500 Diastolic blood pressure 91 mm[Hg] Jean Rodríguez MD Work Phone: [facility] 09-26-2022 14:09-0500 Heart rate 78 /min Jean Rodríguez MD Work Phone: [facility] 09-26-2022 14:09-0500 SaO2% (BldA) [Mass fraction] 96 % Jean Rodríguez MD Work Phone: [facility] 09-26-2022 14:09-0500 Systolic blood pressure 145 mm[Hg] Jean Rodríguez MD Work Phone: [facility] 09-13-2022 10:08-0500 Body temperature 97.2 [degF] Dr. Lilo Grullon Work Phone: [facility] 09-13-2022 10:08-0500 Diastolic blood pressure 73 mm[Hg] Dr. Lilo Grullon Work Phone: [facility] 09-13-2022 10:08-0500 Heart rate 97 /min Dr. Lilo Grullon Work Phone: [facility] 09-13-2022 10:08-0500 Respiratory rate 17 /min Dr. Lilo Grullon Work Phone: [facility] 09-13-2022 10:08-0500 SaO2% (BldA) [Mass fraction] 94 % Dr. Lilo Grullon Work Phone: [facility] 09-13-2022 10:08-0500 Systolic blood pressure 109 mm[Hg] Dr. Lilo Grullon Work Phone: [facility] 09-11-2022 11:34-0500 Body height 160.[address] Lilo Grullon Work Phone: [facility] 09-11-2022 11:34-0500 Body mass index (BMI) [Ratio] 30.6 kg/m2 Dr. Lilo Grullon Work Phone: [facility] 09-11-2022 11:34-0500 Body temperature 98 [degF] Dr. Lilo Grullon Work Phone: [facility] 09-11-2022 11:34-0500 Body weight 78.[address] Lilo Grullon Work Phone: [facility] 09-11-2022 11:34-0500 Diastolic blood pressure 82 mm[Hg] Dr. Lilo Grullon Work Phone: [facility] 09-11-2022 11:34-0500 Heart rate 81 /min Dr. Lilo Grullon Work Phone: [facility] 09-11-2022 11:34-0500 Respiratory rate 18 /min Dr. Lilo Grullon Work Phone: [facility] 09-11-2022 11:34-0500 SaO2% (BldA) [Mass fraction] 97 % Dr. Lilo Grullon Work Phone: [facility] 09-11-2022 11:34-0500 Systolic blood pressure 130 mm[Hg] Dr. Lilo Grullon Work Phone: [facility] 09-10-2022 15:53-0500 Body temperature 97.8 [degF] Dr. Lilo Grullon Work Phone: [facility] 09-10-2022 15:53-0500 Diastolic blood pressure 90 mm[Hg] Dr. Lilo Grullon Work Phone: [facility] 09-10-2022 15:53-0500 Heart rate 95 /min Dr. Lilo Grullon Work Phone: [facility] 09-10-2022 15:53-0500 Respiratory rate 17 /min Dr. Lilo Grullon Work Phone: [facility] 09-10-2022 15:53-0500 SaO2% (BldA) [Mass fraction] 96 % Dr. Lilo Grullon Work Phone: [facility] 09-10-2022 15:53-0500 Systolic blood pressure 140 mm[Hg] Dr. Lilo Grullon Work Phone: [facility] 09-10-2022 14:47-0500 Diastolic blood pressure 75 mm[Hg] Dr. Lilo Grullon Work Phone: [facility] 09-10-2022 14:47-0500 Heart rate 67 /min Dr. Lilo Grullon Work Phone: [facility] 09-10-2022 14:47-0500 Respiratory rate 18 /min Dr. Lilo Grullon Work Phone: [facility] 09-10-2022 14:47-0500 SaO2% (BldA) [Mass fraction] 98 % Dr. Lilo Grullon Work Phone: [facility] 09-10-2022 14:47-0500 Systolic blood pressure 155 mm[Hg] Dr. Lilo Grullon Work Phone: [facility] 09-10-2022 13:15-0500 Body mass index (BMI) [Ratio] 30.9 kg/m2 Dr. Lilo Grullon Work Phone: [facility] 09-10-2022 13:15-0500 Body temperature 97.3 [degF] Dr. Lilo Grullon Work Phone: [facility] 09-10-2022 13:15-0500 Body weight 79.[address] Lilo Grullon Work Phone: [facility] 09-10-2022 11:19-0500 Body mass index (BMI) [Ratio] 29.9 kg/m2 Dr. Lilo Grullon Work Phone: [facility] 09-10-2022 11:19-0500 Body weight 78.[address] Lilo Grullon Work Phone: [facility] 08-28-2022 15:27-0500 Body height 165.1 cm Pacc 1 Work Phone: [facility] 08-28-2022 15:27-0500 Body temperature 97.39 [degF] Pacc 1 Work Phone: [facility] 08-28-2022 15:27-0500 Body weight 79.38 kg Pacc 1 Work Phone: [facility] 08-28-2022 15:27-0500 Diastolic blood pressure 72 mm[Hg] Pacc 1 Work Phone: [facility] 08-28-2022 15:27-0500 Heart rate 84 /min Pacc 1 Work Phone: [facility] 08-28-2022 15:27-0500 Respiratory rate 14 /min Pacc 1 Work Phone: [facility] 08-28-2022 15:27-0500 SaO2% (BldA) [Mass fraction] 96 % Pacc 1 Work Phone: [facility] 08-28-2022 15:27-0500 Systolic blood pressure 122 mm[Hg] [facility] 1 Work Phone: [facility] 06-19-2022 14:55-0500 Body temperature 97 [degF] Dr. Lilo Grullon Work Phone: [facility] 06-19-2022 14:55-0500 Body weight 78.[address] Lilo Grullon Work Phone: [facility] 06-19-2022 14:55-0500 Diastolic blood pressure 76 mm[Hg] Dr. Lilo Grullon Work Phone: [facility] 06-19-2022 14:55-0500 Heart rate 90 /min Dr. Lilo Grullon Work Phone: [facility] 06-19-2022 14:55-0500 Respiratory rate 17 /min Dr. Lilo Grullon Work Phone: [facility] 06-19-2022 14:55-0500 SaO2% (BldA) [Mass fraction] 94 % Dr. Lilo Grullon Work Phone: [facility] 06-19-2022 14:55-0500 Systolic blood pressure 110 mm[Hg] Dr. Lilo Grullon Work Phone: [facility] 06-19-2022 08:38-0500 Body temperature 97.3 [degF] Dr. Lilo Grullon Work Phone: [facility] 06-19-2022 08:38-0500 Body weight 76.[address] Lilo Grullon Work Phone: [facility] 06-19-2022 08:38-0500 Diastolic blood pressure 80 mm[Hg] Dr. Lilo Grullon Work Phone: [facility] 06-19-2022 08:38-0500 Heart rate 97 /min Dr. Lilo Grullon Work Phone: [facility] 06-19-2022 08:38-0500 Respiratory rate 18 /min Dr. Lilo Grullon Work Phone: [facility] 06-19-2022 08:38-0500 SaO2% (BldA) [Mass fraction] 98 % Dr. Lilo Grullon Work Phone: [facility] 06-19-2022 08:38-0500 Systolic blood pressure 110 mm[Hg] Dr. Lilo Grullon Work Phone: [facility] 04-30-2022 16:07-0400 Body height 161.[address] Lilo Grullon Work Phone: [facility] Work Phone: 04-30-2022 16:07-0400 Body mass index (BMI) [Ratio] 30.5 kg/m2 Dr. Lilo Grullon Work Phone: [facility] Work Phone: 04-30-2022 16:07-0400 Body temperature 98 [degF] Dr. Lilo Grullon Work Phone: [facility] Work Phone: 04-30-2022 16:07-0400 Body weight 79.[address] Lilo Grullon Work Phone: [facility] Work Phone: 04-30-2022 16:07-0400 Diastolic blood pressure 80 mm[Hg] Dr. Lilo Grullon Work Phone: [facility] Work Phone: 04-30-2022 16:07-0400 Heart rate 95 /min Dr. Lilo Grullon Work Phone: [facility] Work Phone: 04-30-2022 16:07-0400 Respiratory rate 16 /min Dr. Lilo Grullon Work Phone: [facility] Work Phone: 04-30-2022 16:07-0400 SaO2% (BldA) [Mass fraction] 96 % Dr. Lilo Grullon Work Phone: [facility] Work Phone: 04-30-2022 16:07-0400 Systolic blood pressure 126 mm[Hg] Dr. Lilo Grullon Work Phone: [facility] Work Phone: 03-26-2022 11:02-0400 Body height 160 cm Jean Rodríguez MD Work Phone: [facility] 03-26-2022 11:02-0400 Body weight 80.5 kg Jean Rodríguez MD Work Phone: [facility] 03-26-2022 11:02-0400 Diastolic blood pressure 70 mm[Hg] Jean Rodríguez MD Work Phone: [facility] 03-26-2022 11:02-0400 Heart rate 72 /min Jean Rodríguez MD Work Phone: [facility] 03-26-2022 11:02-0400 SaO2% (BldA) [Mass fraction] 98 % Jean Rodríguez MD Work Phone: [facility] 03-26-2022 11:02-0400 Systolic blood pressure 118 mm[Hg] Jean Rodríguez MD Work Phone: [facility] 02-26-2022 13:22-0400 Body height 161.[address] Lilo Grullon Work Phone: [facility] Work Phone: 02-21-2022 15:56-0400 Diastolic blood pressure 72 mm[Hg] Dr. Lilo Grullon Work Phone: [facility] Work Phone: 02-21-2022 15:56-0400 Heart rate 83 /min Dr. Lilo Grullon Work Phone: [facility] Work Phone: 02-21-2022 15:56-0400 Respiratory rate 16 /min Dr. Lilo Grullon Work Phone: [facility] Work Phone: 02-21-2022 15:56-0400 SaO2% (BldA) [Mass fraction] 92 % Dr. Lilo Grullon Work Phone: [facility] Work Phone: 02-21-2022 15:56-0400 Systolic blood pressure 122 mm[Hg] Dr. Lilo Grullon Work Phone: [facility] Work Phone: 11-01-2021 08:06-0400 Body height 161.[address] Lilo Grullon Work Phone: [facility] Work Phone: 11-01-2021 08:06-0400 Body mass index (BMI) [Ratio] 30.5 kg/m2 Dr. Lilo Grullon Work Phone: [facility] Work Phone: 11-01-2021 08:06-0400 Body temperature 98.6 [degF] Dr. Lilo Grullon Work Phone: [facility] Work Phone: 11-01-2021 08:06-0400 Body weight 79.[address] Lilo Grullon Work Phone: [facility] Work Phone: 11-01-2021 08:06-0400 Diastolic blood pressure 90 mm[Hg] Dr. Lilo Grullon Work Phone: [facility] Work Phone: 11-01-2021 08:06-0400 Heart rate 70 /min Dr. Lilo Grullon Work Phone: [facility] Work Phone: 11-01-2021 08:06-0400 Respiratory rate 16 /min Dr. Lilo Grullon Work Phone: [facility] Work Phone: 11-01-2021 08:06-0400 SaO2% (BldA) [Mass fraction] 97 % Dr. Lilo Grullon Work Phone: [facility] Work Phone: 11-01-2021 08:06-0400 Systolic blood pressure 142 mm[Hg] Dr. Lilo Grullon Work Phone: [facility] Work Phone: 11-01-2021 08:06-0400 Body height 161.[address] Lilo Grullon Work Phone: [facility] Work Phone: 11-01-2021 08:06-0400 Body mass index (BMI) [Ratio] 30.5 kg/m2 Dr. Lilo Grullon Work Phone: [facility] Work Phone: 11-01-2021 08:06-0400 Body temperature 98.6 [degF] Dr. Lilo Grullon Work Phone: [facility] Work Phone: 11-01-2021 08:06-0400 Body weight 79.[address] Lilo Grullon Work Phone: [facility] Work Phone: 11-01-2021 08:06-0400 Diastolic blood pressure 90 mm[Hg] Dr. Lilo Grullon Work Phone: [facility] Work Phone: 11-01-2021 08:06-0400 Heart rate 70 /min Dr. Lilo Grullon Work Phone: [facility] Work Phone: 11-01-2021 08:06-0400 Respiratory rate 16 /min Dr. Lilo Grullon Work Phone: [facility] Work Phone: 11-01-2021 08:06-0400 SaO2% (BldA) [Mass fraction] 97 % Dr. Lilo Grullon Work Phone: [facility] Work Phone: 11-01-2021 08:06-0400 Systolic blood pressure 142 mm[Hg] Dr. Lilo Grullon Work Phone: [facility] Work Phone: Encounters Encounter Date Encounter Type Care Provider Facility Start: 04-28-2025 ambulatory [facility] Start: 04-28-2025 End: 04-28-2025 ambulatory [facility] Facility:[facility] Start: 04-11-2025 Non-patient / Non-visit Dr. Remy Wylie MD -[facility] Work Phone: Start: 04-11-2025 End: 04-11-[address] Lilo Grullon MD Work Phone: -Pulmonary Services/Neurology Start: 04-11-2025 End: 04-11-[address] Renan Fishman MD -Pulmonary Services/Neurology Work Phone: Start: 04-11-2025 End: 04-11-2025 ambulatory [facility] Facility:[facility] Start: 03-14-2025 End: 03-14-[address] Lilo Grullon MD Work Phone: -Laboratory [facility] Start: 03-14-2025 End: 03-14-[address] Renan Fishman MD -[facility] Start: 03-14-2025 End: 03-14-2025 ambulatory [facility] Facility:[facility] Start: 01-18-2025 Non-patient / Non-visit Dr. Lourdes Dave MD -[facility] Work Phone: Start: 11-26-2024 End: 11-26-2024 Emergency department patient visit LILO GRULLON Facility:[facility] Start: 09-21-2024 End: 09-21-2024 Patient encounter procedure Jean Rodríguez MD Work Phone: [facility] Comment on above: NPH (normal pressure hydrocephalus) (HCC ) (Primary Dx); S/P ventriculoperitoneal shunt Start: 09-21-2024 End: 09-21-2024 ambulatory JEAN RODRÍGUEZ Facility:[facility] Start: 09-14-2024 End: 09-14-2024 Telephone encounter Jean Rodríguez MD Work Phone: [facility] Comment on above: Patient Update Returning Patient's Call Start: 09-09-2024 End: 09-09-2024 Emergency department patient visit LILO GRULLON Facility:[facility] Start: 07-12-2024 Emergency department patient visit LILO GRULLON Facility:[facility] Start: 07-01-2024 End: 07-01-2024 ambulatory [facility] [place] [facility] Start: 06-16-2024 End: 06-16-2024 Telephone encounter Chuyita Cortes [facility] Comment on above: Results Start: 06-15-2024 End: 06-15-2024 Telephone encounter Lynn Murdock APRN.CNP Work Phone: [facility] Comment on above: Returning Patient's Call Start: 06-15-2024 End: 06-15-2024 Emergency department patient visit LILO GRULLON Facility:[facility] Start: 06-12-2024 End: 06-13-2024 Emergency department patient visit LILO GARGLLIFF Facility:[facility] Start: 06-03-2024 ambulatory [facility] Facility[facility] Start: 05-19-2024 End: 05-19-2024 Emergency department patient visit LILO LEAH JOLLIFF Facility:[facility] Start: 03-12-2024 Emergency department patient visit LILO LEAH KHUSHBOOLLIFF Facility:[facility] Start: 02-23-2024 End: 02-23-2024 Emergency department patient visit LILO LEAH JOLLIFF Facility:[facility] Start: 01-30-2024 End: 01-30-2024 Patient encounter procedure Jean Rodríguez MD Work Phone: [facility] Comment on above: NPH (normal pressure hydrocephalus) (HCC ) (Primary Dx); S/P ventriculoperitoneal shunt Start: 01-30-2024 End: 01-30-2024 ambulatory JEAN RODRÍGUEZ Facility:[facility] Start: 10-31-2023 End: 10-31-[address] Lilo Grullon Work Phone: [facility] Work Phone: Start: 10-31-2023 End: 10-31-[address] Lilo Grullon Work Phone: [facility] Start: 09-04-2023 End: 09-04-[address] Lilo Grullon Work Phone: [facility] Work Phone: Start: 04-01-2023 End: 04-01-[address] Lilo Grullon Work Phone: [facility] Work Phone: Start: 04-01-2023 End: 04-01-[address] Lilo Grullon Work Phone: [facility] Work Phone: Start: 03-12-2023 End: 03-12-[address] Lilo Grullon Work Phone: [facility] Work Phone: Start: 01-24-2023 End: 01-24-2023 Patient encounter procedure Jean Rodríguez MD Work Phone: [facility] Comment on above: NPH (normal pressure hydrocephalus) (HCC ) (Primary Dx); S/P ventriculoperitoneal shunt Start: 01-24-2023 End: 01-24-2023 Subsequent hospital visit by physician [facility] [place] [facility] [employer] Comment on above: S/P ventriculoperitoneal shunt [Z98.2] Start: 01-13-2023 End: 01-13-[address] Lilo Grullon Work Phone: [facility] Work Phone: Start: 12-20-2022 End: 12-20-2022 Patient encounter procedure Jean Rodríguez MD Work Phone: [facility] Comment on above: NPH (normal pressure hydrocephalus) (HCC ) (Primary Dx); S/P ventriculoperitoneal shunt Start: 12-20-2022 End: 12-20-2022 Subsequent hospital visit by physician [facility] [place] [facility] [employer] Comment on above: NPH (normal pressure hydrocephalus) (HCC ) [G91.2] Start: 12-19-2022 Telephone encounter Jean Rodríguez MD Work Phone: [facility] Comment on above: Appointment Start: 11-28-2022 Non-patient / Non-visit Dr. Lilo Grullon Work Phone: [facility] Start: 11-28-2022 End: 11-28-2022 Admission to same day surgery center Dr. Lilo Grullon Work Phone: [facility] Start: 11-28-2022 End: 11-28-[address] Lilo Grullon Work Phone: [facility] Work Phone: Start: 11-21-2022 End: 11-21-[address] Lilo Grullon Work Phone: [facility] Work Phone: Start: 11-21-2022 End: 11-21-2022 Patient encounter procedure [facility] Provider [facility]ic Department Start: 11-21-2022 Telephone encounter Lynn Murdock APRN.CNP Work Phone: [facility] Comment on above: Returning Patient's Call Start: 11-19-2022 Telephone encounter Lynn Zhengguillermo SWIFT Work Phone: [facility] Comment on above: Returning Patient's Call Start: 11-19-2022 End: 11-19-[address] Lilo Grullon Work Phone: [facility] Start: 11-13-2022 End: 11-13-2022 Patient encounter procedure Jean Rodríguez MD Work Phone: [facility] Comment on above: NPH (normal pressure hydrocephalus) (HCC ) (Primary Dx); S/P ventriculoperitoneal shunt Start: 10-30-2022 End: 10-30-2022 Subsequent hospital visit by physician [facility] [place] [facility] Comment on above: Other hydrocephalus (HCC) [G91.8] Start: 10-30-2022 End: 10-30-2022 Patient encounter procedure Jean Rodríguez MD Work Phone: [facility] Comment on above: NPH (normal pressure hydrocephalus) (HCC ) (Primary Dx); S/P ventriculoperitoneal shunt Start: 10-22-2022 Orders Only Chacha Stein PA-C Work Phone: [facility] Start: 10-21-2022 Orders Only Chacha Stein PA-C Work Phone: [facility] Comment on above: Other hydrocephalus (HCC) (Primary Dx) Start: 10-03-2022 End: 10-03-2022 Admission to establishment [facility] [place] [facility] Start: 10-03-2022 End: 10-03-2022 ambulatory Pst [...] Start: 10-02-2022 Patient encounter status Pst 1 [facility] Work Phone: Start: 09-27-2022 Orders Only Jean Rodríguez MD Work Phone: [facility] Comment on above: NPH (normal pressure hydrocephalus) (HCC ) (Primary Dx) Start: 09-26-2022 End: 09-26-2022 Patient encounter procedure Jean Rodríguez MD Work Phone: [facility] Comment on above: NPH (normal pressure hydrocephalus) (HCC ) (Primary Dx) NPH (normal pressure hydrocephalus) (HCC) (Primary Dx); Other hydrocephalus (HCC) Start: 09-13-2022 End: 09-13-[address] Lilo Grullon Work Phone: [facility] Start: 09-11-2022 End: 09-11-[address] Lilo Grullon Work Phone: [facility] Start: 09-10-2022 End: 09-10-[address] Lilo Grullon Work Phone: [facility] Start: 09-10-2022 End: 09-10-[address] Lilo Grullon Work Phone: [facility] Work Phone: Start: 09-10-2022 End: 09-10-[address] Lilo Grullon Work Phone: [facility] Start: 09-10-2022 End: 09-10-[address] Lilo Grullon Work Phone: [facility] Start: 09-05-2022 End: 09-05-2022 ambulatory FABY SANTANA Facility:[facility] Start: 08-28-2022 End: 08-28-2022 ambulatory FABY SANTANA Facility:[facility] Start: 08-28-2022 Encounter for other preprocedural examination LILO GRULLON [facility] Start: 08-28-2022 End: 08-28-2022 Admission to establishment Pac Calder 1 Work Phone: [facility] Start: 08-28-2022 End: 08-28-2022 ambulatory Pac Brisa 1 Work Phone: Pre Anesthesia Comment on above: Preoperative examination (Primary Dx); NPH (normal pressure hydrocephalus) (HCC); [facility] (obstructive sleep apnea); History of pulmonary embolism; Hyperlipidemia, unspecified hyperlipidemia type; Lymphocytic colitis; Gastroesophageal reflux disease, unspecified whether esophagitis present; Urinary retention Start: 08-28-2022 End: 08-28-2022 Preprocedural examination done Pac Calder 1 Work Phone: Pre Anesthesia Start: 08-21-2022 End: 08-21-2022 ambulatory LILO GRULLON Facility:[facility] Start: 08-09-2022 Telephone encounter Faby Santana MD Work Phone: OB/Gynecology Comment on above: Schedule Surgery Start: 08-05-2022 End: 08-05-2022 ambulatory LILO GRULLON Facility:[facility] Start: 07-31-2022 End: 07-31-2022 ambulatory LILO LYNN MITCHEL OB/Gynecology Start: 07-31-2022 End: 07-31-2022 Patient encounter procedure Debi Quintero MD Work Phone: OB/Gynecology Comment on above: Intramural leiomyoma of uterus (Primary Dx) Start: 07-23-2022 Telephone encounter Priyanka Reynolds PA-C Work Phone: Urology Comment on above: Results Start: 07-19-2022 End: 07-19-2022 ambulatory ILLO GRULLON Facility:[facility] Start: 07-19-2022 Telephone encounter Priyanka Reynolds PA-C Work Phone: Urology Comment on above: Patient Update Start: 07-18-2022 Telephone encounter Faby Santana MD Work Phone: OB/Gynecology Comment on above: Future Appointment Start: 06-23-2022 End: 06-27-2022 Evaluation and management of inpatient LEONELA STEIN Facility:[facility] Start: 06-19-2022 End: 06-19-[address] Lilo Grullon Work Phone: [facility] Start: 06-19-2022 End: 06-19-[address] Lilo Grullon Work Phone: [facility] Start: 06-18-[address] Lilo Grullon Work Phone: [facility]-Physical Therapy Start: 06-15-2022 End: 06-15-[address] Lilo Grullon Work Phone: [facility] Work Phone: Start: 06-15-2022 End: 06-15-[address] Lilo Grullon Work Phone: [facility] Start: 06-14-2022 End: 06-14-[address] Lilo Grullon Work Phone: [facility] Work Phone: Start: 06-14-2022 End: 06-14-[address] Lilo Grullon Work Phone: [facility]-Nuclear Medicine, [facility] Start: 06-03-2022 End: 06-03-[address] Lilo Grullon Work Phone: [facility] Start: 05-30-2022 End: 05-30-2022 ambulatory LILO GRULLON Facility:[facility] Start: 05-30-2022 End: 05-30-2022 Subsequent hospital visit by physician [employer] [employer] [facility] (I-Stat/1.5t) Work Phone: Radiology Start: 05-16-2022 End: 05-16-[address] Lilo Grullon Work Phone: [facility] Work Phone: Start: 05-16-2022 End: 05-16-[address] Lilo Grullon Work Phone: [facility]-Ultrasound, [facility] Start: 05-10-2022 End: 05-10-[address] Lilo Grullon Work Phone: [facility]-Laboratory, Specimen Start: 05-07-[address] Lilo Grullon Work Phone: [facility]-Physical Therapy Start: 04-30-2022 End: 04-30-[address] Lilo Grullon Work Phone: [facility] Start: 04-16-2022 End: 04-16-[address] Lilo Grullon Work Phone: [facility] Work Phone: Start: 04-16-2022 End: 04-16-[address] Lilo Grullon Work Phone: [facility]-Laboratory, [facility] Start: 03-26-2022 End: 03-26-2022 Patient encounter procedure Jean Rodríguez MD Work Phone: [facility] Comment on above: Cerebral ventriculomegaly (Primary Dx) Start: 03-13-2022 End: 03-13-[address] Lilo Grullon Work Phone: [facility] Start: 02-26-2022 End: 02-26-[address] Lilo Grullon Work Phone: [facility]-Outpatient Bone Densitometry Start: 02-21-2022 End: 02-21-[address] Lilo Grullon Work Phone: [facility] Start: 11-30-2021 End: 11-30-[address] Lilo Grullon Work Phone: [facility] Start: 11-01-2021 End: 11-01-[address] Lilo Grullon Work Phone: [facility] Start: 11-01-2021 End: 11-01-[address] Lilo Grullon Work Phone: [facility] Start: 10-24-2021 End: 10-24-[address] Lilo Grullon Work Phone: [facility] Start: 10-04-2021 End: 10-04-[address] Lilo Grullon Work Phone: [facility] Start: 10-01-2021 End: 10-01-[address] Lilo Grullon Work Phone: [facility] Start: 09-21-2021 End: 09-21-[address] Lilo Grullon Work Phone: [facility] Start: 08-13-2021 End: 08-13-[address] Lilo Grullon Work Phone: [facility] Start: 05-18-2021 End: 05-18-2021 Subsequent hospital visit by physician [facility] Work Phone: Radiology Comment on above: Primary osteoarthritis of both hands [M1 9.041, M19.042] Start: 06-06-2011 Patient encounter status Jean Rodríguez MD Work Phone: [facility] Work Phone: Procedures Date Procedure Procedure Detail Performing Clinician Start: 03-14-2025 Vitamin D, 25-hydrox y measurement Dr. Lilo Grullon MD Work Phone: Comment on above: Vitamin D StatusDefi ciency: <20 ng/mL (50nmol/L)Insufficiency: 20-30 ng/mL (50-75 nmol/L)Sufficiency: 30-100 ng/mL (75-250 nmol/L)Toxicity: >100 ng/mL (>250 nmol/L) Start: 12-20-2022 Ct head/brain w/o co ntrast material Lynn Rodriguezcindy SWIFT Work Phone: Start: 11-28-2022 Total cholecystectom y [...] Start: 06-15-2022 MRI of cervical spine Lore Grullon Work Phone: Start: 06-14-2022 Radionuclide imaging of [...] Author Start: 07-12-2027 Diabetes Screening Diabetes Screening [facility] Start: 06-14-2027 Diabetes Screening Diabetes Screening [facility] Start: 03-28-2027 Urine microalbumin profile [facility] Start: 06-01-2026 Diabetes Screening Diabetes Screening [facility] Start: 10-28-2025 DIABETES SCREEN DIABETES SCREEN [facility] Start: 10-28-2025 Diabetes Screening Diabetes Screening [facility] Start: 10-21-2025 DIABETES SCREEN DIABETES SCREEN [facility] Start: 10-03-2025 DIABETES SCREEN DIABETES SCREEN [facility] Start: 07-04-2025 DIABETES SCREEN DIABETES SCREEN [facility] Start: 10-22-2024 DIABETES SCREEN DIABETES SCREEN [facility] Start: 09-21-2024 End: 09-21-2024 Patient encounter procedure 09/21/2024 11:30 AM EST Office Visit [facility] [address] [place] [id number] Jean Rodríguez MD [address] [address] [place], [place] [id number] change in symptoms - appt not due until January [facility] Comment on above: change in symptoms - appt not due until January Start: 07-21-2024 Advance Directive Discussion Advance Directive Discussion [facility] Start: 07-05-2024 Shingrix Vaccine (2 of 2) Shingrix Vaccine (2 of 2) [facility] Start: 03-21-2024 Covid-19 Vaccine ( season) Covid-19 Vaccine () [facility] Start: 03-21-2024 Influenza vaccination Influenza Vaccine (#1) [facility] Start: 07-21-2023 Advance Directive Discussion Advance Directive Discussion [facility] Start: 07-21-2023 Behavioral Health Screening Behavioral Health Screening [facility] Start: 03-21-2023 Covid-19 Vaccine () Covid-19 Vaccine () [facility] Start: 03-21-2023 Influenza vaccination [facility] Start: 11-28-2022 Patient discharge [facility] Start: 10-16-2022 End: 10-26-2023 CT BRAIN WO IVCON CT BRAIN WO IVCON Radiology Routine Other hydrocephalus (HCC) Expected: 10/16/2022, Expires: 10/26/2023 [facility] Work Phone: Comment on above: Expected: 10/16/2022, Expires: Start: 07-21-2022 ADVANCE DIRECTIVE DISCUSSION ADVANCE DIRECTIVE DISCUSSION [facility] Start: 07-21-2022 DEPRESSION ASSESSMENT DEPRESSION ASSESSMENT [facility] Start: 07-19-2022 End: 07-18-2023 PELVIC US WHI PELVIC US I Anc Imaging Routine Abnormal CT scan Expected: 07/19/2022, Expires: 07/18/2023 [facility] Work Phone: Comment on above: Expected: 07/19/2022, Expires: 3 Start: 05-01-2022 Patient referral [facility] Work Phone: Start: 03-21-2022 Influenza vaccination INFLUENZA (#1) [facility] Start: 11-01-2021 Patient referral [facility] Work Phone: Start: 07-21-2021 ADVANCE DIRECTIVE DISCUSSION ADVANCE DIRECTIVE DISCUSSION [facility] Start: 02-18-2021 COVID-19 VACCINE (4 - Booster) COVID-19 VACCINE (4 - Booster) [facility] Start: 12-14-2020 COVID-19 VACCINE (4 - Booster) COVID-19 VACCINE (4 - Booster) [facility] Start: 12-14-2020 COVID-19 VACCINE (5 - Booster for Moderna series) COVID-19 VACCINE (5 - Booster for Moderna series) [facility] Start: 12-14-2020 COVID-19 VACCINE (5 - Booster) COVID-19 VACCINE (5 - Booster) [facility] Start: 12-14-2020 COVID-19 VACCINE (5 - Moderna series) COVID-19 VACCINE (5 - Moderna series) [facility] Start: 09-08-2019 Pneumococcal Vaccine: 50+ (2 of 2 - PPSV23) Pneumococcal Vaccine: 50+ (2 of 2 - PPSV23) [facility] Start: 09-08-2019 Pneumococcal Vaccine: 65+ (2 - PPSV23 or PCV20) Pneumococcal Vaccine: 65+ (2 - PPSV23 or PCV20) [facility] Start: 09-08-2019 Pneumococcal Vaccine: 65+ (2 of 2 - PPSV23 or PCV20) Pneumococcal Vaccine: 65+ (2 of 2 - PPSV23 or PCV20) [facility] Start: 09-08-2019 PNEUMOCOCCAL: 65+ (2 - PPSV23 if available, else PCV20) PNEUMOCOCCAL: 65+ (2 - PPSV23 if available, else PCV20) [facility] Start: 09-08-2019 PNEUMOCOCCAL: 65+ (2 - PPSV23 or PCV20) PNEUMOCOCCAL: 65+ (2 - PPSV23 or PCV20) [facility] Start: 2018 RSV Vaccine (1 - 1-dose 75+ series) RSV Vaccine (1 - 1-dose 75+ series) [facility] Start: 2008 BONE DENSITY BONE DENSITY [facility] Start: 2008 Bone Density Screening Bone Density Screening [facility] Start: 2008 PNEUMOCOCCAL: 65+ (1 - PCV) PNEUMOCOCCAL: 65+ (1 - PCV) [facility] Start: 2008 Screening for osteoporosis Bone Density Screening [facility] Start: 2003 RSV Vaccine (1 - 1-dose 60+ series) RSV Vaccine (1 - 1-dose 60+ series) [facility] Start: 1993 SHINGRIX VACCINE (1 of 2) SHINGRIX VACCINE (1 of 2) [facility] Start: 1962 Urine microalbumin profile DTAP,TDAP,TD (1 - Tdap) [facility] Start: 1961 Anxiety Screening Anxiety Screening [facility] Start: 1961 Depression Screening Depression Screening [facility] Start: 1961 HEPATITIS C SCREENING HEPATITIS C SCREENING [facility] Start: 1955 Adult depression screening assessment DEPRESSION SCREENING [facility] End: 11-20-2023 CT BRAIN WO IVCON CT BRAIN WO IVCON Radiology Routine Other hydrocephalus (HCC) 1 Occurrences starting 10/21/2022 until 11/20/2023 [facility] Work Phone: Comment on above: 1 Occurrences starting 10/21/2022 until 11/20/2023 End: 12-13-2023 CT BRAIN WO IVCON CT BRAIN WO IVCON Radiology Routine NPH (normal pressure hydrocephalus) (HCC) S/P ventriculoperitoneal shunt 1 Occurrences starting 11/13/2022 until 12/13/2023 [facility] Work Phone: Comment on above: 1 Occurrences starting 11/13/2022 until 12/13/2023 CT BRAIN WO IVCON CT BRAIN WO IV CON Radiology Routine S/P ventriculoperitoneal shunt NPH (normal pressure hydrocephalus) (HCC) 01/24/2023 2:03 PM EDT [facility] Work Phone: MR Brain WO and W contrast IV [facility] Work Phone: MR Cervical spine [facility] Work Phone: MR Lumbar spine [facility] Work Phone: MR Lumbar spine WO and W contrast IV [facility] Work Phone: MRA Head vessels WO contrast [facility] Work Phone: Patient Education RAD RN Lumbar Puncture Having [facility] Work Phone: Patient referral [facility] Work Phone: [facility] Immunizations Immunization Date Immunization Notes Care Provider Mika oakley 08-17-2021 influenza, injectabl e, quadrivalent, contains preservative Jean Rodríguez MD Work Phone: [facility] 08-17-2021 influenza virus vaccine, unspecified formulation Mri (I-Stat/1.5t) Work Phone: [facility] 10-19-2020 COVID-19 original vaccine, full dose, monovalent (MODERNA) Jean Rodríguez MD Work Phone: [facility] 10-15-2020 COVID-19 original vaccine, full dose, monovalent (MODERNNorth) Jean Rodríguez MD Work Phone: [facility] 10-04-2020 Covid (Moderna) [facility] Work Phone: [facility] 09-22-2020 COVID-19 original vaccine, full dose, monovalent (MODERNA) Jean Rodríguez MD Work Phone: [facility] 05-12-2020 influenza, injectabl e, quadrivalent, contains preservative Jean Rodríguez MD Work Phone: [facility] 05-06-2019 Seasonal, quadrivale nt, recombinant, injectable influenza vaccine, preservative free Jean Rodríguez MD Work Phone: [facility] 09-08-2018 pneumococcal conjuga te vaccine, 13 valent Jean Rodríguez MD Work Phone: [facility] 04-17-2018 influenza, injectabl e, quadrivalent, preservative free Dr. Lilo Grullon Work Phone: [facility] 04-17-2018 influenza, seasonal, injectable Dr. Lilo Grullon Work Phone: [facility] 04-20-[address] Lilo Grullon Work Phone: [facility] 04-20-2017 influenza, seasonal, injectable, preservative free Jean Rodríguez MD Work Phone: [facility] 03-28-2017 tetanus toxoid, redu dave diphtheria toxoid, and acellular pertussis vaccine, adsorbed Dr. Lilo Grullon Work Phone: [facility] 03-18-2017 influenza, high dose seasonal, preservative-free Jean Rodríguez MD Work Phone: [facility] 08-22-2015 influenza, seasonal, injectable Jean Rodríguez MD Work Phone: [facility] 06-06-2011 influenza virus vaccine, unspecified formulation Jean Rodríguez MD Work Phone: [facility] Work Phone: Payers Date Payer Category Payer Medicare (Managed Care) [employer] [id number] 2024 Self-pay [id number] 2024 Unknown [id number] 2023 Private Health Insurance [id number] 2021 Private Health Insurance [id number] 2020 Private Health Insurance [facility] AARP SUPPLEMENT [id number] 2020-2021 [address] [place] [address] Indemnity [id number] 2008 Medicare [id number] Medicare [id number] Unknown [id number] Unknown [id number] Unknown [id number] Unknown [id number] Unknown [id number] Unknown [id number] Unknown [id number] Social History Date Type Detail Facility Start: 10-04-2021 End: 09-04-2023 Tobacco smoking status NHIS Unknown if ever smoked [facility] Start: 12-29-2020 None [facility] Start: 12-29-2020 Alone [facility] Start: 12-29-2020 Non-smoker [facility] Start: 1945 Sex Assigned At Female [facility] Start: 06-06-2011 End: 09-04-2023 Tobacco smoking status NHIS Never smoked tobacco [facility] Work Phone: Start: 06-06-2011 Tobacco use and exposure Smoke less tobacco non-user [facility] Work Phone: Start: 03-26-2022 End: 09-21-2024 Alcohol intake Current non-drinker of alcohol (finding) [facility] Start: 1945 Sex Assigned At Not on file [facility] Start: 04-18-2021 End: 03-26-2022 Exposure to SARS-CoV-2 (event) Not sure [facility] Start: 06-24-2022 End: 10-17-2022 History SDOH Financial 5 [facility] Start: 06-24-2022 End: 10-17-2022 History SDOH Food Worry 1 [facility] Start: 06-24-2022 End: 10-25-2022 History SDOH Transport Med 2 [facility] Start: 06-12-2022 End: 06-22-2022 Exposure to SARS-CoV-2 (event) Yes [facility] Start: 10-25-2022 History SDOH Financial 4 [facility] Start: 01-24-2023 End: 05-20-2024 History of Social function [facility] Start: 01-24-2023 End: 05-20-2024 Tobacco use panel [facility] How hard is it for y ou to pay for the very basics like food, housing, medical care, and heating Not very hard [facility] (I/We) worried wheth er (my/our) food would run out before (I/we) got money to buy more. Never true [facility] In the past 12 month s, has lack of transportation kept you from medical appointments or from getting medications? No [facility] In the past 12 month s, was there a time when you were not able to pay the mortgage or rent on time? No [facility] NEGATED: Highlighted row [facility] Medical Equipment Procedure Code Equipment Code Equipment Origin al Text Equipment Identifier Dates Total cholecystectomy with exploration of common bile duct Ligation clip, synthetic polymer, non-bioabsorbable [id number] FDA Start: 11-28-2022 Total cholecystectomy with exploration of common bile duct Ligation clip, synthetic polymer, non-bioabsorbable [id number] FDA Start: 11-28-2022 Minimally invasive total replacement [...] Kit Catheter 120 cm Peritoneal Ventricular Shunt Codman Bactiseal 14cm - [id number] Start: 10-16-2022 Valve Shunt Programmable Inline Stylet Codman Hakim [employer] Sterile - [id number] Start: 10-16-2022 Goals Date Patient Goal Desired Activity /State Functional Status Date Assessment Result Facility 10-28-2022 Are you deaf, or do you have serious difficulty hearing No 10/28/2022 6:29 PM Lilo Skaggs RN No [facility] 10-28-2022 Are you blind, or do you have serious difficulty seeing, even when wearing glasses No 10/28/2022 6:29 PM Lilo Skaggs RN No [facility] 10-28-2022 Do you have serious difficulty walking or climbing stairs No 10/28/2022 6:29 PM Lilo Skaggs RN No [facility] 10-28-2022 Do you have difficul ty dressing or bathing No 10/28/2022 6:29 PM Lilo Skaggs RN No [facility] 10-28-2022 Because of a physica l, mental, or emotional condition, do you have difficulty doing errands alone such as visiting a physician's office or shopping Yes 10/28/2022 6:29 PM EDT Lilo Sorenson RN Yes [facility] Mental Status Date Assessment Result Facility 11-28-2022 Cognitive function Level Of Cons ciousness Appropriate;Drowsy [facility] Work Phone: 10-28-2022 Because of a physica l, mental, or emotional condition, do you have serious difficulty concentrating, remembering, or making decisions Yes 10/28/2022 6:29 PM EDT Lilo Sorenson RN Yes [facility] 09-10-2022 Cognitive function Awake;Alert;Appropriat e [facility] Work Phone: Clinical Notes 05-18-2021 to 11-26-2024 Jean Rodríguez MD - 09/21/2024 11:30 AM ESTTelephone Encounter - Lynn Murdock APRN.DATA COMMUNICATIONS ANALYST - 09/14/2024 3:02 PM ESTTelephone Encounter - Lynn Murdock APRN.[facility] - 09/14/2024 3:02 PM EST Note Date & Type Note Facility 11-26-2024 Note HNO ID: [id number] Author: ELLEN CANALES RT(R) Service: ? Author [...] PATIENT PRESENTS WITH AN IMPLANTABLE OR ATTACHED PHOTOENGRAVING MACHINE OPERATOR/TENDER: No RADIOLOGY DEPARTMENT: Ultrasound PERIPHERAL IV DATA: Not applicable SIGNED BY: Ellen Canales RDMS, RVT November 26, 2024 4:12 PM [facility] 09-21-2024 History of Present illness Narrative Images from the original note were not included. NEUROSURGERY FOLLOW UP OFFICE NOTE Dr. Jean Rodríguez MD, FACS Date of visit: September 21, 2024 Patient Name: Ms.Tuula North Suggs Date of : 1945 Current Age: [age] year old Sex: female MRN/E# [id number] Last Office Visit: January 30, 2024 CHIEF COMPLAINT: Patient presents with: Established Patient SUBJECTIVE: The patient presents as a follow up without new imaging for evaluation. This is a 79-year-old female with a PMHx of arthritis, melanoma (right thigh), rotator cuff tear and NPH who was seen for consult on 03/05/2022 as a referral from the [place] emergency department. After sustaining a fall while [...] symptoms were better immediately following placement of LEVELMAN shunt and since then had not improved. [...] above. ASSESSMENT/PLAN: 1. NPH (normal pressure hydrocephalus) ([facility]) - ICD9: 331.5, ICD10: G91.2 (primary diagnosis) [...] This note has been partially generated using Executive Channel, a speech recognition software program, and may contain errors including punctuation, grammar, spelling, gender, and inappropriate words or phrases that pertain to the system. documented in this encounter [facility] 09-21-2024 Note HNO ID: [id number] Author: JEAN RODRÍGUEZ MD Service: ? Author Type: Physician Type: Progress Notes Filed: 09/21/2024 11:24 Note Text: NEUROSURGERY FOLLOW UP OFFICE NOTE Dr. Jean Rodríguez MD, FACS Date of visit: September 21, 2024 Patient Name: Ms.Tuula North Suggs Date of : 1945 Current Age: [age] year old Sex: female MRN/E# [id number] Last Office Visit: January 30, 2024 CHIEF COMPLAINT: Patient presents with: Established Patient SUBJECTIVE: The patient presents as a follow up without new imaging for evaluation. This is a 79-year-old female with a PMHx of arthritis, melanoma (right thigh), rotator cuff tear and NPH who was seen for consult on 03/05/2022 as a referral from the [place] emergency department. After sustaining a fall while [...] symptoms were better immediately following placement of LEVELMAN shunt and since then had not improved. [...] difficile enteritis Hist (more content not included)... [facility] 09-14-2024 Telephone encounter Note Returned call to [...] call with any other questions or concerns. DRE Ríos Neurosurgery Nurse Practitioner [facility] 3:07 PM 09/14/2024 [facility] Work Phone: 09-14-2024 Miscellaneous Notes Returned call [...] on 12/20/22. We will plan to see Tuula on 09/22/23 as scheduled for evaluation. Her daughter agreed to this plan of care and will call with any other questions or concerns. Lynn Murdock APRN-DILLON Neurosurgery Nurse Practitioner [facility] 3:07 PM 09/14/2024 documented in this encounter [facility] 09-14-2024 Telephone encounter Note Patients daughter called [...] was thankful and understanding. [place] RN [facility] 09-14-2024 Miscellaneous Notes Patients daughter called concerned [...] [place] RN documented in this encounter [facility] 07-12-2024 Note HNO ID: [id number] Author: ELLEN CANALES RT(R) Service: ? Author [...] PATIENT PRESENTS WITH AN IMPLANTABLE OR ATTACHED PHOTOENGRAVING MACHINE OPERATOR/TENDER: No RADIOLOGY DEPARTMENT: Ultrasound PERIPHERAL IV DATA: Not applicable SIGNED BY: Ellen Canales RDMS, RVT July 12, 2024 5:58 PM [facility] 06-16-2024 Telephone encounter Note Emergency Department Culture [...] Cortes PharmD June 16, 2024 9:33 AM [facility] 06-16-2024 Miscellaneous Notes Emergency Department Culture Callback [...] 2024 9:33 AM documented in this encounter [facility] 06-15-2024 Telephone encounter Note Returned call to patient's daughter Laura. She had left a message yesterday when I was out of the office that her mom was very dizzy, weak and had vomited. She was taken to an outside ED and was told she had vertigo. Prior to me returning the call the patient was taken to [facility] ED where workup was completed including [...] need arise. DRE Ríos Neurosurgery Nurse Practitioner [facility] Michael Gracia 10:27 AM 06/15/2024 [facility] Work Phone: 06-15-2024 Miscellaneous Notes Returned call to patient's daughter Laura. She had left a message yesterday when I was out of the office that her mom was very dizzy, weak and had vomited. She was taken to an outside ED and was told she had vertigo. Prior to me returning the call the patient was taken to [facility] ED where workup was completed including [...] future should the need arise. Lynn Murdock APRN-DILLON Neurosurgery Nurse Practitioner [facility] 10:27 AM 06/15/2024 documented in this encounter [facility] 01-30-2024 History of Present illness Narrative NEUROSURGERY FOLLOW UP OFFICE NOTE Dr. Jean Rodríguez MD, FACS Date of visit: January 30, 2024 Patient Name: Ms.Tuula North Suggs Date of : 1945 Current Age: [age] year old Sex: female MRN/E# [id number] Last Office Visit: March 28, 2023 CHIEF COMPLAINT: Patient presents with: Established Patient SUBJECTIVE: The patient presents as a follow-up without new imaging for evaluation. This is a 77-year-old female with a PMHx of arthritis, melanoma (right thigh), rotator cuff tear and NPH who was seen for consult on 03/05/2022 as a referral from the [place] emergency department. After sustaining a fall while [...] symptoms were better immediately following placement of LEVELMAN shunt and since then had not improved. [...] Patient diagnosed with NPH and had a LEVELMAN shunt who is setting is 120 now. [...] This note has been partially generated using Executive Channel, a speech recognition software program, and may contain errors including punctuation, grammar, spelling, gender, and inappropriate words or phrases that pertain to the system. documented in this encounter [facility] 01-30-2024 Note HNO ID: [id number] Author: JEAN RODRÍGUEZ MD Service: ? Author Type: Physician Type: Progress Notes Filed: 01/30/2024 13:50 Note Text: NEUROSURGERY FOLLOW UP OFFICE NOTE Dr. Jean Rodríguez MD, FACS Date of visit: January 30, 2024 Patient Name: Ms.Tuula North Suggs Date of : 1945 Current Age: [age] year old Sex: female MRN/E# [id number] Last Office Visit: March 28, 2023 CHIEF COMPLAINT: Patient presents with: Established Patient SUBJECTIVE: The patient presents as a follow-up without new imaging for evaluation. This is a 77-year-old female with a PMHx of arthritis, melanoma (right thigh), rotator cuff tear and NPH who was seen for consult on 03/05/2022 as a referral from the [place] emergency department. After sustaining a fall while [...] symptoms were better immediately following placement of LEVELMAN shunt and since then had not improved. [...] Upset Flagyl [Nitr (more content not included)... [facility] 01-24-2023 History of Present illness Narrative NEUROSURGERY FOLLOW UP OFFICE NOTE Dr. Jean Rodríguez MD, FACS Date of visit: January 24, 2023 Patient Name: Ms.Tuula North Suggs Date of : 1945 Current Age: [age] year old Sex: female MRN/E# [id number] Last Office Visit: 12/20/2022 Chief Complaint: Patient presents with: Established Patient SUBJECTIVE: The patient presents as a follow up with imaging (CT B) for evaluation. This is a 77-year-old female with a PMHx of arthritis, melanoma (right thigh), rotator cuff tear and NPH who was seen for consult on 03/05/2022 as a referral from the [place] emergency department. After sustaining a fall while [...] mouth daily at bedtime. vit A-vit C-vit U-rxxe-qohyty 7,160-113-100 wqbf-zm-crfl tab Take 2 tablets by mouth once [...] her memory has changed significantly since the LEVELMAN shunt was placed. I reviewed the CT [...] visit. This note was partially generated using Worlize voice recognition system, and there may be some incorrect words, spellings, and punctuation that were not noted in checking the note before saving. documented in this encounter [facility] 12-20-2022 History of Present illness Narrative NEUROSURGERY POST OP NOTE Dr. Jean Rodríguez MD, FACS Date of visit: December 19, 2022 Patient Name: Ms.Tuula North Suggs Date of : 1945 Current Age: [age] year old MRN/E# [id number] Last Office Visit: November 13, 2022 SURGERY: [...] in February 2022 as a referral from [place] emergency department. She had apparently sustained a [...] mouth daily at bedtime. vit A-vit C-vit V-xdiq-slltmo 7,160-113-100 yzbi-hw-ecwc tab Take 2 tablets by mouth once [...] shunt. ASSESSMENT/PLAN: 1. NPH (normal pressure hydrocephalus) (HCC) [...] from 1 20-1 10. I used the Reframe It senior java programmer and I positioned the device over [...] care. This note was partially generated using Worlize voice recognition system, and there may be some incorrect words, spellings, and punctuation that were not noted in checking the note before saving. documented in this encounter [facility] 06-01-2023 Miscellaneous Notes Called patient to see if she is able to come in early for her appointment with Dr. Rodríguez on 12/20, as he has to leave early for surgery. Patient did not answer and voicemail is full. Unable to leave a message. Will call back later. documented in this encounter [facility] 11-28-2022 Discharge summary Note Date/Time November 28, 2022 12:22 pm [facility] Medical Records Department [address] [place] [address] Instructions for Home/Discharge Instructions 11/28/22 1222 MR#: [id number] Acct: [id number] Name: CHRISTIAN SUGGS Rep #:[id number] : 1945 77 From: Radha Singh MD PCP: Dr. Lilo Grullon MD Status:REG [facility] Discharge Instructions Diet Discharge Diet: Light diet [...] weeks; after 5 PM and on call [phone] with any concerns. Test Results: Test results [...] 30 mg PO DAILY vit A-vit C-vit R-glco-fddgru 7,160-113-100 nfvj-sk-nztg Tablet 2 tab PO DAILY melatonin 5 [...] for Christian Suggs, Date of : [birth year], [place] Customer Number: [id number] Held aspirin 81 MG tablet,chewable 81 mg PO DAILY Hold Instructions: Resume on 11/30/22. Referrals / Follow Up: Lilo Grullon MD [Primary Care Provider] - Disposition Disposition (needs filled in before D/C Order can be placed): Home, Self Care 11/28/22 1228<Electronically signed by Radha Singh MD>Radha Singh MD CC: Dr. Lilo Grullon MD ~ Signed [facility] Work Phone: 1(949) 625-634105-11-2023 History and physical note Author Dr. Singh [facility] November 28, 2022 10:23am Note Date/Time November 28, 2022 10:22 am [facility] Medical Records Department [address] [place] [address] History & Physical Exam 11/28/22 1021 MR#: [id number] Acct: [id number] Name: CHRISTIAN SUGGS Rep #:[id number] : 1945 77 From: Radha Singh MD PCP: Dr. Lilo Grullon MD Status:[facility] Location: [place] [address] History and Physical Date of Admission: 11/28/22 Date of Service:? 11/19/22 MR#: [id number] Acct: [id number] Name:CHRISTIAN BLACKBURN Rep #: [id number] : 1945 ? ? Provider: Dr. Radha Singh MD Age/Sex:? 77/F ? ? Location: [facility] Status: Signed Intake Vital Signs ? [...] DAILY 05/23/21 [History Confirmed 11/19/22] glucosamine 750 da-cbixzaplgcs-hfu no1 644 mg-C 30 mg-charly 1 mg tablet (Osteo Bi-Flex Triple Strength) 2 tab PO DAILY 05/23/21 [History Confirmed 11/19/22] melatonin 5 mg tablet 5 mg PO QHS 05/23/21 [History Confirmed 11/19/22] vit A 7,160 unit-vit C 113 mg-vit E 100 wdro-rcta-hhebri tablet 2 tab PO DAILY 05/23/21 [History [...] physical activity do you participate in:? none ye/hindu:? [facility] seatbelt use:? always HPI HPI HPI: 77-year-old female presents with her for right upper quadrant pain/history of biliary dyskinesia.? Patient recently had her LEVELMAN shunt placed 10/16/2022 at [facility].? Patient did have adjustment 2 weeks [...] this set up prior to getting her LEVELMAN shunt placed. ROS General General: Yes weight [...] cooperative, healthy appearing and no acute distress HENSD Head: normal to inspection Other: LEVELMAN shunt palpated at the apex of scalp [...] Plan (1) Biliary dyskinesia: ?Status:?Acute (2) S/P LEVELMAN shunt: ?Status:?Acute Plan Discussed with the patient and her not have to check with imaging from [facility] to find out where exactly this shunt [...] questions were answered. Radha Singh M.D. Pager: [phone] [facility] [address] [place], [place] [address]on, [address] [place] [address] Office: [phone] Coding Level of Care Code Off vis,est,level 4 Diagnoses Biliary dyskinesia? K82.8 S/P LEVELMAN shunt? Z98.2 11/21/22 0723 <Electronically signed by Radha Singh MD> Date Radha Singh MD 11/28/22 102 <Electronically signed by Radha Singh MD> Cosigner Signature (if applicable): CC: Dr. Lilo Grullon MD; Dr. Radha Singh MD~ Signed ADDENDUM by Dr. Radha Singh MD on 11/28/22 at 1023 Addendum Addendum: I have examined the patient the following changes are noted: Did obtain surgicalclearance from the neurosurgeon Dr. Rodríguez 11/28/221022<Electronically signed by Radha Singh MD> Cosigner Signature (if applicable): cc: Dr. Lilo Grullon MD; Dr. Radha Singh MD ~* Signed [facility] Work Phone: 1(486) 690-975705-04-2023 Miscellaneous Notes* Telephone Encounter - Lynn Murdock [...] as scheduled. DRE Ríos Neurosurgery Nurse Practitioner [facility] 12:02 PM 11/21/2022 [place] [address]-02[place]2023 Miscellaneous Notes* Telephone Encounter - Lynn Murdock [...] for recommendations. She agreed to do so. Lynn Murdock APRN-DILLON Neurosurgery Nurse Practitioner [facility] 4:27 PM 11/19/2022 [facility] History of Present illness Narrative* Jean Rodríguez MD - 11/13/2022 2:30 PM EDT NEUROSURGERY POST OP NOTE Dr. Jean Rodríguez MD, FACS Date of visit: November 12, 2022 Patient Name: Ms.Tuula [place] Date of : 1945 Current Age: [age] year old MRN/E# [id number] Last Office Visit: 10/30/2022 SURGERY: Creation of [...] in February 2022 as a referral from [place] emergency department. She had apparently sustained a [...] mouth daily at bedtime. vit A-vit C-vit V-rqrf-aakthk 7,160-113-100 xbdj-ir-xuip tab Take 2 tablets by mouth once [...] Z98.2 - CT BRAIN WO IVCON Jean Rodríguez MD Return in about 1 month (around 12/13/2022) for review of imaging and plan of care. This note was partially generated using Worlize voice recognition system, and there may be some incorrect words, spellings, and punctuation that were not noted in checking the note before saving. [facility] History of Present illness Narrative* Jean Rodríguez MD - 10/30/2022 11:00 AM EDT NEUROSURGERY POST OP NOTE Dr. Jean Rodríguez MD, FACS Date of visit: October 30, 2022 Patient Name: Ms.Tuula North Suggs Date of : 1945 Current Age: [age] year old MRN/E# [id number] Last Office Visit: Post op SURGERY: Creation [...] in February 2022 as a referral from [place] emergency department. She had apparently sustained a [...] mouth daily at bedtime. vit A-vit C-vit V-aqtr-czvwct 7,160-113-100 ybhf-mr-bgul tab Take 2 tablets by mouth once [...] weeks This note was partially generated using Worlize voice recognition system, and there may be some incorrect words, spellings, and punctuation that were not noted in checking the note before saving. [facility] History and physical note * Manju Douglas APRN.DATA COMMUNICATIONS ANALYST - 10/03/2022 10:00 AM EDT Images from [...] once daily. Taking Yes vit A-vit C-vit H-hhqr-ncybsf 7,160-113-100 hqkl-xs-tuhg tab Take 2 tablets by mouth once [...] 360 QTC Calculation (Bazett) [address] [employer] 55 Calculated R [employer] 7 Calculated T [employer] 44 Impression NORMAL SINUS RHYTHM INFERIOR INFARCT , AGE UNDETERMINED CANNOT RULE OUT ANTERIOR INFARCT , AGE UNDETERMINED ABNORMAL ECG WHEN COMPARED WITH ECG OF 22-OCT-2021 17:59, INFERIOR INFARCT IS NOW PRESENT Confirmed by MD KUSHAL, GISELA ([id number]) on 06/24/2022 9:04:43 PM No results found for this or any previous visit (from the past 22438 hour(s)). Assessment Patient has the following medical [...] [facility] Planned Surgery or Procedure: Answer: [facility] Implantable Devices: Bilateral knees, Right hip, Bilateral IOLs, Spinal Assessment/Plan NPH (normal pressure hydrocephalus) (HCC) [G91.2] PLAN Planned Procedure: IMPLANT SHUNT VENTRICULOPERITONEAL; LAPAROSCOPIC IMPLANT SHUNT VENTRICULOPERITONEAL The Following Tests/Procedures Have Been Initiated: CBC, BMP and T&S ordered in [facility] by AGUILAR Instructions Given to Patient: Instructions located in the after visit summary. Hibiclens given and instructions provided. Patient given verbal and written preop instructions and voices comprehension and compliance. I spent a total of 40 minutes on the date of the service which included preparing to see the patient, ixck-df-dgkg patient care, completing clinical documentation, obtaining and/or reviewing separately obtained history, performing a medically appropriate examination, counseling and educating the pat ient/family/caregiver, and ordering medications, tests, or procedures. SIGNATURE: Manju Douglas APRN.CNP PATIENT NAME: Christian Suggs DATE: October 02, 2022 TIME: 4:52 PM PAGER/CONTACT #: [facility] Instructions* Patient Instructions* Manju Douglas APRN.CNP - 10/02/2022 4:52 PM EDT PATIENT PREOPERATIVE INSTRUCTIONS Your surgeon has scheduled you for your procedure at this surgery center: [facility] [phone] [address] [place] [phone] Please enter through the main entrance, and [...] call the Friday before. Your surgeon s materials scheduler will tell you what time to call [...] or the morning of surgery. Use the Hibiclens body wash supplied to you along with [...] surgery. - YOU MUST HAVE A RESPONSIBLE FORENSIC SCIENTIST TAKE YOU HOME. A DIRECTOR OF FINANCIAL AID, CAB OR UBER FORENSIC SCIENTIST CANNOT BE MADEA RESPONSIBLE FORENSIC SCIENTIST. - We recommend that a responsible person [...] hospital and check in at the surgery welcome center, where you will provide points of contact. [facility] current visitor policy: may bring 1-2 [...] Manju Douglas APRN.CNP 10/03/22 [facility] History of Present illness Narrative* Jean Rodríguez MD - 09/26/2022 2:00 PM EST NEUROSURGERY FOLLOW UP OFFICE NOTE Dr. Jean Rodríguez MD, FACS Date of visit: September 26, 2022 Patient Name: Ms.Tuula North Suggs Date of : 1945 Current Age: [age] year old Sex: female MRN/E# [id number] Last Office Visit: March 26, 2022 Chief Complaint: Patient presents with: Established Patient SUBJECTIVE: The patient presents as a follow up with new imaging (MRI B) for evaluation. This is a 77-year-old female who was initially seen for consult in February 2022 as a referral from [place] emergency department. She had apparently sustained a [...] Take 1 capsule by mouth once daily. kerlcquq-qxso-lma0-C-charly-bosw (OSTEO BI-FLEX TRIPLE STRENGTH) 750 mg-644 mg- 30 mg-1 mg tab Take 1tablet by mouth once daily. Melatonin 5 mg cap Take 1 capsule by mouth daily at bedtime. vit A-vit C-vit P-kpoh-bngqep 7,160-113-100 unsk-nt-dmdr tab Take 2 tablets by mouth once [...] 5/5 Straight leg Neg Neg Ankle dorsiflex /5 5/5 Ankle Plantar 5/5 5/5 Heel Walking [...] flow. Lumbar Puncture completed on 09/09/22 at [facility] per Dr. Reza Stevens. -Opening and closing pressure 5 cm ASSESSMENT/PLAN: 1. NPH (normal pressure hydrocephalus) ([facility]) - ICD9: 331.5, ICD10: G91.2 Patient is [...] and schedule her for the surgery at [facility] and we will have her cleared prior to the surgery and we will ask the assistance of generalsurgery Dr. Robby Seay to do the endoscopic insertion of the peritoneal catheter at the same time. Jean Rodríguez MD Follow Up: Return for OR - placement of LEVELMAN shunt. This note was partially generated using Worlize voice recognition system, and there may be some incorrect words, spellings, and punctuation that were not noted in checking the note before saving. [facility]02-[facility]23 Instructions* Patient Instructions* Shawnee Santillan PA-C - 08/28/2022 3:38 PM EST PATIENT PREOPERATIVE INSTRUCTIONS [facility]: [phone] -- [address] [facility] [address]. Please read below carefully for your personalized [...] Procedures: - YOU MUST HAVE A RESPONSIBLE FORENSIC SCIENTIST TAKE YOU HOME. A DIRECTOR OF FINANCIAL AID OR INDUSTRIAL PHARMACIST CANNOT BE MADE A RESPONSIBLE FORENSIC SCIENTIST. - We recommend that a responsible person [...] Advance Directive, please fax a copy to [phone] or email to for it to be [...] your chart that day. documented in [facility]23 History and physical note * Shawnee Santillan [...] manage findings. Procedure scheduled on 09/05/2022 at [facility]. REVIEW OF SYSTEMS: General: No weight loss, [...] arrhythmia, atrial fibrillation, CAD, CHF, hypertension, recent CA and murmur/valvular heart disease. GI: +Lymphocytic colitis - on budesonide, follows with GI, Friend. Positive for: GERD Negative for: hepatitis, liver disease and ETOH >2 drinks/day. : +Urinary retention - on Flomax, has indwelling catheter, has appt with urology on 09/03/22. Positive for: indwelling catheter. Negative for: hematuria and renal failure. SVP CHIEF MARKETING OFFICER: See HPI. Endocrine: No history of diabetes. [...] 360 QTC Calculation (Bazett) [address] [employer] [address] Cal[address] [employer] 7 [address] [employer] 44 Impression NORMAL SINUS RHYTHM INFERIOR INFARCT , AGE UNDETERMINED CANNOT RULE OUT ANTERIOR INFARCT , AGE UNDETERMINED ABNORMAL ECG WHEN COMPARED WITH ECG OF 22-OCT-2021 17:59, INFERIOR INFARCT IS NOW PRESENT Confirmed by MD KUSHAL, GISELA ([id number]) on 06/24/2022 9:04:43 PM No results found for this or any previous visit (from the past 74505 hour(s)). Assessment NPH (normal pressure hydrocephalus) (HCC) Assessment: Tentative diagnosis per pt's , had stable ventriculomegaly on CT 06/2022, following with outside neuro, Dr. Ruggiero, planning to do spinal tap after hysteroscopy and if patient has improved balance, tentatively planning for LEVELMAN shunt. [facility] (obstructive sleep apnea) Assessment: Does [...] Score: (+[facility] - does not use CPAP/BIPAP) [id number] Score: [id number] Score: 0 ASA Class: 3 ANESTHESIA FINDINGS: [...] 4:49 PM PAGER/CONTACT #: documented in this [facility]02-[facility]-2023 NoteHNO ID: [id number] Author: Faby Santana MD Service: ? Author [...] L4 SAB0 IAB0 Ectopic0 Multiple0 Live Births0 Application Support Analyst History LMP: Postmenopausal Age at Menarche: Age at First : Age at Menopause: 48 Application Support Analyst History Comments: Sexual Activity: Not Currently; Male [...] Making Level: 1 - N/A Faby Santana, [facility]01-20-2023 Miscellaneous Notes* Telephone Encounter - Sara Roberts LPN - 08/09/2022 1:13 PM EST Patient is scheduled for surgery at [facility] on 09/05/2022. Please approve surgical order documented in this encounterSam[facility]01-16-2023 NoteHNO ID: [id number] Author: Faby Santana MD Service: ? Author Type: Physician Type: Progress Notes Filed: 08/05/2022 11:36 AM Note Text: Christian Suggs presents for hysteroscopy. Indication: endometrial mass found on imaging. Denies vaginal bleeding. Wears a catheter chronically. here w/ and daughter who is RN at [employer]. Age: [age] year old LMP: No [...] polyp lesions on hysteroscopy. PLAN: Hysteroscopic polypectomy, EDGAR in the OR. .Faby Santana, [facility]01-03-2023 Miscellaneous Notes* Telephone Encounter - Lelo Vidal [...] infection in the urine TRENTON Mercado, KAEL OMLINA documented in this encounterSam[facility] Hospital12-30-2022 Miscellaneous Notes* Telephone Encounter - Lelo Vidal LPN - 07/19/2022 4:57 PM EST Called Marialuisa- unable to leave message due to mailbox full. Lelo Vidal LPN documented in this encounterSam[facility]itan Hospital12-30-2022 NoteHNO ID: [id number] Author: Lelo Vidal LPN Service: ? Author [...] for catheter changes as planned. Lelo Vidal [facility]12-30-2022 NoteHNO ID: [id number] Author: Priyanka Reynolds PA-C Service: ? Author Type: Physician Manager Food Beverage Type: Progress Notes Filed: 07/19/2022 4:27 PM Note Text: [facility] [place] [facility] [facility] NOTE SERVICE DATE: [...] OBSTETRICS AND GYNECOLOGY Result Value Ref Range Split Leather Mosser Provider ESTHER your patient CHRISTIAN SUGGS has been assigned their Yvonne pro (more content not included)...[facility]12-30-2022 Miscellaneous Notes* Telephone Encounter - Hue Miller [...] MD * Telephone Encounter - Edita Montana Jose - 07/18/2022 10:16 AM EST Patient has appointment with you on 08/05/2021. CT scan done at ED on 06/22/2022. Recommends ultrasound. Would you like her to have one done prior to her appointment. Openings the morning of appointment. Order pending. Patient will need called to schedule if appropriate. Edita Montana CMA [facility] NoteHNO ID: [id number] Author: Ban Hull RN Service: Care Management Author Type: Registered Nurse Type: Care Mgt Progress Note Filed: 06/27/2022 1:14 PM Note Text: CARE MANAGEMENT DISCHARGE NOTE SERVICE DATE: 06/27/2022 SERVICE TIME: 1:10 PM LOS: 3 days Admission Date: 06/23/2022 DISCHARGE ARRANGEMENT (list agency and phone number) Discharge Arrangement: Residential Facility Was an expedited discharge program used?: No CAREGIVER ASSESSMENT: Caregiver is ready, willing and able to meet the patient's needs as recommended by the inter-professional team:: Yes Patient's transition needs and plan for meeting these needs: Residential Facility at [facility] HANDOFF COMMUNICATION: Handoff to: Primary Care Physician;Other Caregiver Primary Care Physician Name/Phone: Lilo Grullon Other Caregiver Name/Phone: RN to RN report at [facility] TRANSPORTATION ARRANGEMENTS: Transportation Arrangements: Ambulance Transportation Agency and Phone #:: [facility] [phone] Date of Trip: 06/27/22 Time of Trip: 4604 Type of Service: BLS Non-emergency Is Patient Medicaid Pending?: No Was transportation financial coverage discussed with family?: Patient;Family Gambling Monitor Location: [place] Destination: [facility] Financial Care Management Responsibility: None Discharge Information Row Name Admission (Current) from 06/23/2022 in [facility] Transportation Agency [facility] Transport Arranged To: [facility] Residential Facility Agency [facility] Transitional care unit Needs Prior to Discharge: Ready for Discharge;Discharge Transportation Caregiver is ready, willing and able to meet the patient's needs as recommended by the inter-professional team:: Yes Name of Caregiver: [facility] Transportation Arrangements: Ambulance Transportation Agency and Phone #:: [facility] [phone] Date of Trip: 06/27/22 Time of Trip: 1430 Type of Service: BLS Non-emergency Is Patient Medicaid Pending?: No Was transportation financial coverage discussed with family?: Patient;Family Gambling Monitor Location: [place] Destination: [facility] Financial Care Management Responsibility: None Discharge order in place. Patient has been approved by Zena[facility] to transition to [facility]. Notified patient at bedside she is agreeable to plan for discharge today to SNF, call to [facility], updated on plan for discharge today. Updates sent to facility. Discharge packet on chart for Clinical RN. SIGNATURE: Ban Hull RN PATIENT NAME: Christian Suggs DATE: June 27, 2022 TIME: 1:09 PM PAGER/CONTACT #: [phone] NoteHNO ID: [id number] Author: Leonela Stein MD Service: ? Author Type: Physician Type: Progress Notes Filed: 06/29/2022 8:18 PM Note Text: [facility] - General Progress Note ESCHRISTIAN : 1945 AGE: 76 SEX: F CSN: [id number] [facility]OSP SVC: [facility] LOCATION: [id number] ATTENDING PHYSICIAN: Leonela Stein M.D. DATE OF [...] bag 20 mL INTRAVENOUS PRN Dipika Frederick DIRECTOR OF VOCATIONAL TRAINING.DATA COMMUNICATIONS ANALYST sodium chloride 0.9 % (flush) 3-5 mL (BD POSIFLUSH) 3-5 mL INTRAVENOUS q 12 H Dipika Frederick DIRECTOR OF VOCATIONAL TRAINING.DATA COMMUNICATIONS ANALYST 5 mL at 06/26/222047 acetaminophen 650 mg tab(s) (TYLENOL) 650 mg ORAL q 6 H PRN Dipika Frederick DIRECTOR OF VOCATIONAL TRAINING.DATA COMMUNICATIONS ANALYST 650 mg at 06/26/222049 hjcxooy-mqfoiwtmq-rodfvlb D3 500 mg-5 mcg (200 unit) 1 tablet 1 tablet ORAL BID Dipika Frederick DIRECTOR OF VOCATIONAL TRAINING.DATA COMMUNICATIONS ANALYST 1 tablet at 06/26/222046 budesonide, enteric coated 6 mg cap(s) (ENTOCORT EC) 6 mg ORAL BEFORE BREAKFAST DAILY Dipika Frederick DIRECTOR OF VOCATIONAL TRAINING.DATA COMMUNICATIONS ANALYST 6 mg at 06/26/22 0656 therapeutic multivitamin-minerals tablet (THERA-M PLUS) 1 tablet ORAL DAILY Dipika Frederick APRN.DATA COMMUNICATIONS ANALYST 1 tablet at 06/26/22908 meloxicam 7.5 mg tab(s) (MOBIC) 7.5 mg ORAL DAILY Dipika Frederick APRN.DATA COMMUNICATIONS ANALYST 7.5 mg at 06/26/22 09 aspirin, enteric coated 81 mg tab(s) 81 mg ORAL DAILY Dipika Frederick APRN.DATA COMMUNICATIONS ANALYST 81 mg at 06/26/22908 DULoxetine 30 mg cap(s) (CYMBALTA) 30 mg ORAL AT BEDTIME Dipika Frederick APRN.DATA COMMUNICATIONS ANALYST 30 mg at 06/26/222046 rosuvastatin 5 mg tab(s) (CRESTOR) 5 mg ORAL AT BEDTIME Dipika Frederick APRN.DATA COMMUNICATIONS ANALYST 5 mg at 06/26/222046 cefTRIAXone iv piggyback 1 g in dextrose (iso-osmotic) 50 mL (ROCEPHIN) 1 g INTRAVENOUS q 24 H Dipika Frederick APRN.CNP Stopped at 06/26/[address] 40 mg tab(s) (PROTONIX) 40 mg ORAL DAILY (6 AM) Dipika Frederick APRN.DATA COMMUNICATIONS ANALYST 40 mg at 06/26/2256 remdesivir in NaCl 0.9% Vial-Mate/ADD-Moline 100 mg 275 mL 100 mg INTRAVENOUS q 24 HR Vivien Dietz MD Stopped at 06/26/22 1813 dexAMETHasone 6 mg tab(s) (DECADRON) 6 mg ORAL DAILY WITH BREAKFAST Vivien Dietz MD 6 mg at 06/26/22 0910 melatonin 3 mg tab(s) 3 mg ORAL AT BEDTIME PRN Cb Singh APRN.DATA COMMUNICATIONS ANALYST 3 mg at 06/25/22 2110 Intake/Output Summary [...] Date Value 06/26/2022 9.3 (more content not included)...[id number] NoteHNO ID: [id number] Author: Ban Hull RN Service: Care Management [...] on current status of precert pending for [facility]. Updated if SNF is denied, home care services are also on stand by with [facility] Home care services. 1530: Received message from [facility] precert is approved, Still waiting for official confirmation. MMT transport scheduled for 1430 to [facility] T[facility] pending medical clearance and confirmation of precert. SIGNATURE: Ban Hull RN PATIENT NAME: Christian Suggs DATE: June 26, 2022 TIME: 12:16 PM PAGER/CONTACT #: [phone] NoteHNO ID: [id number] Author: Leonela Stein MD Service: ? Author Type: Physician Type: Progress Notes Filed: 06/26/2022 10:55 PM Note Text: [facility] - General Progress Note CHRISTIAN SUGGS : 1945 AGE: 76 SEX: F CSN: [id number] [facility]: [facility] LOCATION: [facility] ATTENDING PHYSICIAN: Leonela Stein M.D. DATE [...] follow up. Leonela Stein M.D. Internal Medicine RICHTER:[id number] NoteHNO ID: [id number] Author: Jessie Jones Service: Care Management Author Type: ? Type: Care Mgt Progress Note Filed: 06/26/2022 9:59 AM Note Text: CARE MANAGEMENT PROGRESS NOTE SERVICE DATE: 06/26/2022 SERVICE TIME: 958 LOS: 2 days IMM Follow Up Copy Given: Yes Copy given to:: Patient Medical Assistant Per Diem Medical Assistant Per Diem Name/Relationship: ritesh mario Method: By Phone SIGNATURE: Jessie Jones [facility] PATIENT NAME: Christian Suggs DATE: June 26, 2022 TIME: 9:59 AM PAGER/CONTACT #: [phone] NoteHNO ID: [id number] Author: Leonela Stein MD Service: ? Author Type: Physician Type: Progress Notes Filed: 06/26/2022 11:34 PM Note Text: [facility] - General Progress Note CHRISTIAN SUGGS : 1945 AGE: 76 SEX: F CSN: [id number] [facility]: [facility] LOCATION: [facility] ATTENDING PHYSICIAN: Leonela Stein M.D. DATE [...] with Urology. 4. Endometrial mass. Consult with LINE CONSTRUCTION ENGINEER. Finding reviewed and discussed with the patient. [...] mL INTRAVENOUS q 12 H Dipika Frederick APRN.DATA COMMUNICATIONS ANALYST 5 mL at 06/25/222109 acetaminophen 650 mg tab(s) (TYLENOL) 650 mg ORAL q 6 H PRN Dipika Frederick APRN.DATA COMMUNICATIONS ANALYST 650 mg at 06/25/222109 eoywtzf-jlphpnigm-xyhltre D3 500 mg-5 mcg (200 unit) 1 tablet 1 tablet ORAL BID Dipika Frederick APRN.DATA COMMUNICATIONS ANALYST 1 tablet at 06/25/222109 budesonide, enteric coated 6 mg cap(s) (ENTOCORT EC) 6 mg ORAL BEFORE BREAKFAST DAILY Dipika Frederick APRN.DATA COMMUNICATIONS ANALYST 6 mg at 06/25/22622 therapeutic multivitamin-minerals tablet (THERA-M PLUS) 1 tablet ORAL DAILY Dipika Frederick APRN.CNP 1 tablet at 06/25/22907 meloxicam 7.5 mg tab(s) (MOBIC) 7.5 mg ORAL DAILY Dipika Frederick APRN.DATA COMMUNICATIONS ANALYST 7.5 mg at 06/25/22908 aspirin, enteric coated 81 mg tab(s) 81 mg ORAL DAILY Dipika Frederick APRN.DATA COMMUNICATIONS ANALYST 81 mg at 06/25/22907 DULoxetine 30 mg cap(s) (CYMBALTA) 30 mg ORAL AT BEDTIME Dipika Frederick APRN.DATA COMMUNICATIONS ANALYST 30 mg at 06/25/222109 rosuvastatin 5 mg tab(s) (CRESTOR) 5 mg ORAL AT BEDTIME Dipika Frederick APRN.DATA COMMUNICATIONS ANALYST 5 mg at 06/25/222109 cefTRIAXone iv piggyback 1 g in dextrose (iso-osmotic) 50 mL (ROCEPHIN) 1 g INTRAVENOUS q 24 H Dipika Frederick APRN.DATA COMMUNICATIONS ANALYST Stopped at 06/25/[address] 40 mg tab(s) (PROTONIX) 40 mg ORAL DAILY (6 AM) Dipika Frederick APRN.DATA COMMUNICATIONS ANALYST 40 mg at 12/06/22 0622 remdesivir in NaCl 0.9% Vial-Mate/ADD-Moline 100 mg 275 mL 100 mg INTRAVENOUS q 24 HR Vivien Dietz MD Stopped at 06/25/22 181 dexAMETHasone 6 mg tab(s) (DECADRON) 6 mg ORAL DAILY WITH BREAKFAST Vivien Dietz MD 6 mg at 06/25/22 0913 melatonin 3 mg tab(s) 3 mg ORAL AT BEDTIME PRN Cb Singh APRN.DATA COMMUNICATIONS ANALYST 3 mg at 06/25/22 2110 Intake/Output Summary (Last 24 hours) at 06/25/2022 2311 Last data filed at 06/25/2022 2110 Gross per 24 hour Intake 250 ml [...] (L) Calcium, Total (mg/dL) (more content not included)...[facility] [id number] NoteHNO ID: [id number] Author: Leonela Stein MD Service: ? Author Type: Physician Type: Progress Notes Filed: 06/26/2022 10:58 PM Note Text: [facility] - General Progress Note CHRISTIAN SUGGS : 1945 AGE: 76 SEX: F CSN: [id number] [facility] LOCATION: [facility] ATTENDING PHYSICIAN: Leonela Stein M.D. DATE [...] with Urology. 4. Endometrial mass. Consult with LINE CONSTRUCTION ENGINEER. Finding reviewed and discussed with the patient. 5. Debility, weakness. PT, OT. Case has been discussed with the consultants, patient. We will follow up. Leonela Stein M.D. Internal Medicine RICHTER:[id number] NoteHNO ID: [id number] Author: Ban Hull RN Service: Care Management [...] Home therapy. Discussed at this time, [facility] or denied. She would prefer we try to get her accepted at [facility] for short term rehab as she failed at home with multiple falls and she has 12 stairs to get to her bedroom at home. Inquired if additional choices could be sent to her incase [facility] denies, she will investigate other options on her own. Inquiry sent to [facility], awaiting response, she will need precert which may be barrier to getting her to SNF. SIGNATURE: Ban Hull RN PATIENT NAME: Christian Suggs DATE: June 25, 2022 TIME: 11:34 AM PAGER/CONTACT #: [phone] NoteHNO ID: [id number] Author: Massiel Stallings APRN.DATA COMMUNICATIONS ANALYST Service: General Internal Medicine Author Type: Nurse Practitioner Type: Plan of Care Filed: 06/24/2022 4:17 PM Note Text: This is a 76 year old female with PMH of OA, right thigh melanoma, spinal stenosis, GERD, who presented to the hospital from [facility] ED for evaluation and treatment of persistent [...] damon catheter was placed on admission to [facility]. Pt was noted to have hypoxia on [...] in the region of the endometrial canal -SVP CHIEF MARKETING OFFICER consulted this admission. Recommend SVP CHIEF MARKETING OFFICER US and O/P follow up with local SVP CHIEF MARKETING OFFICER in [facility] Elevated troponin Assessment AND Plan: -HS 15>14>14 on admission, likely in setting of acute COVID-19 infection -EKG on admission with no acute ischemic changes -Cardiology consulted. No further work up I spent 35 minutes in the visit, with more than 50% of the total uhlv-hu-nnsu time of the visit in counseling / coordination of care.[facility] [id number] NoteHNO ID: [id number] Author: Ban Hull RN Service: Care Management Author Type: Registered Nurse Type: Care Mgt Initial Assessment Filed: 06/24/2022 2:11 PM Note Text: CARE MANAGEMENT: ASSESSMENT AND DISCHARGE PLAN SERVICE DATE: June 24, 2022 SERVICE TIME: 2:07 PM PRIMARY CARE PHYSICIAN: Lilo Grullon MD Primary Contact: Extended Emergency Contact Information Primary Emergency Contact: MARIALUISA CORNEJO Mobile Relation: Daughter Secondary Emergency Contact: Suggs,Melvin Address: [id number] [place] [id number] Relation: Spouse ADMISSION STATUS: Observation Insurance Provider: [employer] MEDICARE HMO NEEDS PRIOR TO DISCHARGE Needs Prior to Discharge: To Be Determined;IV Antibiotics;OT/PT Evaluation;Facility or Agency Choices;Home Care Order;Discharge Transportation POTENTIAL TRANSITION PLANS Home;Home Care;Residential Facility/Intermediate Care Facility;To Be Determined Based on clinical judgement, Care Management will address the following needs: Medical;Functional Patient's perception of need for this admission: falls at home after recent discharge from [facility] ADVANCE DIRECTIVES Current Advance Directive: None Blasting Gang Miner Attempted to Assist with AD Completion: Yes [...] avoid readmission were identified: Yes PATIENT SCREEN Patient/Medical Assistant Per Diem Stated Goals: To have reduction in symptoms;To [...] Completely I feel financially burdened by my wro-cp-rjycpi expenses for my prescription medication:: 0 - Disagree Completely Risk Score: 0 Patient is categorized as: Low risk < 2 SOCIAL Living Arrangements: Home Lives With: Spouse Financial Resources: Retired Supportive Patient Contact:: Unable to assess at this time Contact Resources: Family Family Name/Phone: Richard [phone] (W) Is Patient Psychosocially Complex?: No Contact Resources: Family Family Name/Phone: Richard [phone] (W) Health Literacy How often do you [...] Lack of Transportation (Medical) (more content not included)...[facility] History of Past illness Narrative* Problem Noted Date Resolved Date Acute respiratory failure with hypoxemia 022 06/27/2022 Elevated troponin 06/24/2022 07/05/2022 Acute respiratory failure with hypoxia 2 07/05/2022 COVID-19 06/20/2022 07/05/2022 Neck pain 06/08/2021 08/17/2021 Frequent falls 06/08/2021 08/17/2021 Weakness of back 06/08/2021 08/17/2021 documented as of this encounter (statuses as of 07/24/2022) [facility] History of Past illness Narrative* Problem Noted Date Resolved Date Acute respiratory failure with hypoxemia 022 06/27/2022 Elevated troponin 06/24/2022 07/05/2022 Acute respiratory failure with hypoxia 2 07/05/2022 COVID-19 06/20/2022 07/05/2022 Neck pain 06/08/2021 08/17/2021 Frequent falls 06/08/2021 08/17/2021 Weakness of back 06/08/2021 08/17/2021 documented as of this encounter (statuses as of 07/25/2022) [facility] History of Past illness Narrative* Problem Noted Date Resolved Date Acute respiratory failure with hypoxemia 022 06/27/2022 Elevated troponin 06/24/2022 07/05/2022 Acute respiratory failure with hypoxia 2 07/05/2022 COVID-19 06/20/2022 07/05/2022 Neck pain 06/08/2021 08/17/2021 Frequent falls 06/08/2021 08/17/2021 Weakness of back 06/08/2021 08/17/2021 documented as of this encounter (statuses as of 07/31/2022) [facility] History of Past illness Narrative* Problem Noted Date Resolved Date Acute respiratory failure with hypoxemia 022 06/27/2022 Elevated troponin 06/24/2022 07/05/2022 Acute respiratory failure with hypoxia 2 07/05/2022 COVID-19 06/20/2022 07/05/2022 Neck pain 06/08/2021 08/17/2021 Frequent falls 06/08/2021 08/17/2021 Weakness of back 06/08/2021 08/17/2021 documented as of this encounter (statuses as of 08/12/2022) [facility] of Past illness Narrative* Problem Noted Date Resolved Date Acute respiratory failure with hypoxemia 022 06/27/2022 Elevated troponin 06/24/2022 07/05/2022 Acute respiratory failure with hypoxia 2 07/05/2022 COVID-19 06/20/2022 07/05/2022 Neck pain 06/08/2021 08/17/2021 Frequent falls 06/08/2021 08/17/2021 Weakness of back 06/08/2021 08/17/2021 documented as of this encounter (statuses as of 08/28/2022) [facility] of Past illness Narrative* Problem Noted Date Resolved Date Acute respiratory failure with hypoxemia 022 06/27/2022 Elevated troponin 06/24/2022 07/05/2022 Acute respiratory failure with hypoxia 2 07/05/2022 COVID-19 06/20/2022 07/05/2022 Neck pain 06/08/2021 08/17/2021 Frequent falls 06/08/2021 08/17/2021 Weakness of back 06/08/2021 08/17/2021 documented as of this encounter (statuses as of 08/28/2022) [facility] of Past illness Narrative* Problem Noted Date Resolved Date Acute respiratory failure with hypoxemia 022 06/27/2022 Elevated troponin 06/24/2022 07/05/2022 Acute respiratory failure with hypoxia 2 07/05/2022 COVID-19 06/20/2022 07/05/2022 Neck pain 06/08/2021 08/17/2021 Frequent falls 06/08/2021 08/17/2021 Weakness of back 06/08/2021 08/17/2021 documented as of this encounter (statuses as of 09/26/2022) [facility] of Past illness Narrative* Problem Noted Date Resolved Date Acute respiratory failure with hypoxemia 022 06/27/2022 Elevated troponin 06/24/2022 07/05/2022 Acute respiratory failure with hypoxia 2 07/05/2022 COVID-19 06/20/2022 07/05/2022 Neck pain 06/08/2021 08/17/2021 Frequent falls 06/08/2021 08/17/2021 Weakness of back 06/08/2021 08/17/2021 documented as of this encounter (statuses as of 09/26/2022) [facility] of Past illness Narrative* Problem Noted Date Resolved Date Acute respiratory failure with hypoxemia 022 06/27/2022 Elevated troponin 06/24/2022 07/05/2022 Acute respiratory failure with hypoxia 2 07/05/2022 COVID-19 06/20/2022 07/05/2022 Neck pain 06/08/2021 08/17/2021 Frequent falls 06/08/2021 08/17/2021 Weakness of back 06/08/2021 08/17/2021 documented as of this encounter (statuses as of 09/27/2022) [facility] of Past illness Narrative* Problem Noted Date Resolved Date Acute respiratory failure with hypoxemia 022 06/27/2022 Elevated troponin 06/24/2022 07/05/2022 Acute respiratory failure with hypoxia 2 07/05/2022 COVID-19 06/20/2022 07/05/2022 Neck pain 06/08/2021 08/17/2021 Frequent falls 06/08/2021 08/17/2021 Weakness of back 06/08/2021 08/17/2021 documented as of this encounter (statuses as of 10/03/2022) [facility] Narrative* Problem Noted Date Resolved Date Acute respiratory failure with hypoxemia 022 06/27/2022 Elevated troponin 06/24/2022 07/05/2022 Acute respiratory failure with hypoxia 2 07/05/2022 COVID-19 06/20/2022 07/05/2022 Neck pain 06/08/2021 08/17/2021 Frequent falls 06/08/2021 08/17/2021 Weakness of back 06/08/2021 08/17/2021 documented as of this encounter (statuses as of 10/21/2022) [facility] Past illness Narrative* Problem Noted Date Resolved Date Acute respiratory failure with hypoxemia 022 06/27/2022 Elevated troponin 06/24/2022 07/05/2022 Acute respiratory failure with hypoxia 2 07/05/2022 COVID-19 06/20/2022 07/05/2022 Neck pain 06/08/2021 08/17/2021 Frequent falls 06/08/2021 08/17/2021 Weakness of back 06/08/2021 08/17/2021 documented as of this encounter (statuses as of 10/22/2022) [facility] Narrative* Problem Noted Date Resolved Date Acute respiratory failure with hypoxemia 022 06/27/2022 Elevated troponin 06/24/2022 07/05/2022 Acute respiratory failure with hypoxia 2 07/05/2022 COVID-19 06/20/2022 07/05/2022 Neck pain 06/08/2021 08/17/2021 Frequent falls 06/08/2021 08/17/2021 Weakness of back 06/08/2021 08/17/2021 documented as of this encounter (statuses as of 10/31/2022) [facility] of Past illness Narrative* Problem Noted Date Resolved Date Acute respiratory failure with hypoxemia 022 06/27/2022 Elevated troponin 06/24/2022 07/05/2022 Acute respiratory failure with hypoxia 2 07/05/2022 COVID-19 06/20/2022 07/05/2022 Neck pain 06/08/2021 08/17/2021 Frequent falls 06/08/2021 08/17/2021 Weakness of back 06/08/2021 08/17/2021 documented as of this encounter (statuses as of 10/31/2022) [facility] Past illness Narrative* Problem Noted Date Resolved Date Acute respiratory failure with hypoxemia 022 06/27/2022 Elevated troponin 06/24/2022 07/05/2022 Acute respiratory failure with hypoxia 2 07/05/2022 COVID-19 06/20/2022 07/05/2022 Neck pain 06/08/2021 08/17/2021 Frequent falls 06/08/2021 08/17/2021 Weakness of back 06/08/2021 08/17/2021 documented as of this encounter (statuses as of 11/13/2022) [facility] Past [facility] Narrative* Problem Noted Date Resolved Date Acute respiratory failure with hypoxemia 022 06/27/2022 Elevated troponin 06/24/2022 07/05/2022 Acute respiratory failure with hypoxia 2 07/05/2022 COVID-19 06/20/2022 07/05/2022 Neck pain 06/08/2021 08/17/2021 Frequent falls 06/08/2021 08/17/2021 Weakness of back 06/08/2021 08/17/2021 documented as of this encounter (statuses as of 11/20/2022) [facility] Past illness Narrative* Problem Noted Date Resolved Date Acute respiratory failure with hypoxemia 06/27/2022 Elevated troponin 06/24/2022 07/05/2022 Acute respiratory failure with hypoxia 07/05/2022 COVID-19 06/20/2022 07/05/2022 Neck pain 06/08/2021 08/17/2021 Frequent falls 06/08/2021 08/17/2021 Weakness of back 06/08/2021 08/17/2021 documented as of this encounter (statuses as of 11/21/2022) [facility] Narrative* Problem Noted Date Resolved Date Acute respiratory failure with hypoxemia 06/27/2022 Elevated troponin 06/24/2022 07/05/2022 Acute respiratory failure with hypoxia 07/05/2022 COVID-19 06/20/2022 07/05/2022 Neck pain 06/08/2021 08/17/2021 Frequent falls 06/08/2021 08/17/2021 Weakness of back 06/08/2021 08/17/2021 documented as of this encounter (statuses as of 11/22/2022) [facility] of Past illness Narrative* Problem Noted Date Resolved Date Acute respiratory failure with hypoxemia 06/27/2022 Elevated troponin 06/24/2022 07/05/2022 Acute respiratory failure with hypoxia 2 07/05/2022 COVID-19 06/20/2022 07/05/2022 Neck pain 06/08/2021 08/17/2021 Frequent falls 06/08/2021 08/17/2021 Weakness of back 06/08/2021 08/17/2021 documented as of this encounter (statuses as of 12/19/2022) [facility] Past illness Narrative* Problem Noted Date Resolved Date Acute respiratory failure with hypoxemia 022 06/27/2022 Elevated troponin 06/24/2022 07/05/2022 Acute respiratory failure with hypoxia 07/05/2022 COVID-19 06/20/2022 07/05/2022 Neck pain 06/08/2021 08/17/2021 Frequent falls 06/08/2021 08/17/2021 Weakness of back 06/08/2021 08/17/2021 documented as of this encounter (statuses as of 12/20/2022) [facility] of Past illness Narrative* Problem Noted Date Resolved Date Acute respiratory failure with hypoxemia 022 06/27/2022 Elevated troponin 06/24/2022 07/05/2022 Acute respiratory failure with hypoxia 07/05/2022 COVID-19 06/20/2022 07/05/2022 Neck pain 06/08/2021 08/17/2021 Frequent falls 06/08/2021 08/17/2021 Weakness of back 06/08/2021 08/17/2021 documented as of this encounter (statuses as of 12/21/2022) [facility] History of Past illness Narrative* Problem Noted Date Resolved Date Acute respiratory failure with hypoxemia 022 06/27/2022 Elevated troponin 06/24/2022 07/05/2022 Acute respiratory failure with hypoxia 07/05/2022 COVID-19 06/20/2022 07/05/2022 Neck pain 06/08/2021 08/17/2021 Frequent falls 06/08/2021 08/17/2021 Weakness of back 06/08/2021 08/17/2021 documented as of this encounter (statuses as of 01/24/2023) [facility] History of Past illness Narrative* Problem Noted Date Diagnosed Date Resolved Date Acute respiratory failure with hypoxemia 06/24/2022 06/27/2022 Elevated troponin 06/24/2022 07/05/2022 Acute respiratory failure with hypoxia 06/24/2022 07/05/2022 COVID-19 06/20/2022 07/05/2022 Neck pain 06/08/2021 08/17/2021 Frequent falls 06/08/2021 08/17/2021 Weakness of back 06/08/2021 08/17/2021 documented as of this encounter (statuses as of 01/25/2023) [facility] NoteHNO ID: [id number] Author: Leonela Stein MD Service: ? Author Type: Physician Type: Progress Notes Filed: 06/25/2022 9:15 PM Note Text: [facility] - General Progress Note CHRISTIAN SUGGS : 1945 AGE: 76 SEX: F CSN: [id number] [facility]: [facility] LOCATION: [facility] ATTENDING PHYSICIAN: Leonela Stein M.D. DATE [...] treatment, was found to have endometrial mass. LINE CONSTRUCTION ENGINEER is being consulted. ASSESSMENT AND PLAN: 1. COVID-19 infection. Continue with isolation. Started on IV remdesivir. Monitor pulse ox. 2. Endometrial mass, LINE CONSTRUCTION ENGINEER consult. 3. Urinary retention. Damon catheter, consult Urology. 4. Weakness, debility, PT/OT. 5. Urinary tract infection, was placed on IV ceftriaxone. Follow up C and S. The above has been discussed with the patient, daughter on the phone. Her daughter is a nursing steam fitter supervisor maintenance at [facility] She would like the patient to be evaluated to be discharged to rehab at [facility] channel development manager consulted. We will follow up. Leonela Stein M.D. Internal Medicine RICHTER:[id number] NoteHNO ID: [id number] Author: Leonela Stein MD Service: ? Author Type: Physician Type: Progress Notes Filed: 06/25/2022 11:10 PM Note Text: [facility] - General Progress Note CHRISTIAN SUGGS : 1945 AGE: 76 SEX: F CSN: [id number] [facility]: [facility] LOCATION: [id number] ATTENDING PHYSICIAN: Leonela Stein M.D. DATE OF SERVICE: 06/24/2022 SUBJECTIVE: The patient seen and examined. The patient continued to report being weak, generalized. No focal weakness, has intermittent cough. No chest pain, tightness, or pressure. No shortness of breath. Admitted to the hospital with generalized weakness and COVID-19 was initiated, remdesivir treatment, was found to have endometrial mass. LINE CONSTRUCTION ENGINEER is being consulted. ASSESSMENT AND PLAN: 1. COVID-19 infection. Continue with isolation. Started on IV remdesivir. Monitor pulse ox. 2. Endometrial mass, LINE CONSTRUCTION ENGINEER consult. 3. Urinary retention. Damon catheter, consult Urology. 4. Weakness, debility, PT/OT. 5. Urinary tract infection, was placed on IV ceftriaxone. Follow up C and S. The above has been discussed with the patient, daughter on the phone. Her daughter is a nursing steam fitter supervisor maintenance at [facility] She would like the patient to be evaluated to be discharged to rehab at [facility] channel development manager consulted. We will follow up. PAST MEDICAL [...] mL INTRAVENOUS q 12 H Dipika Frederick APRN.DATA COMMUNICATIONS ANALYST 5 mL at 06/24/222113 acetaminophen 650 mg tab(s) (TYLENOL) 650 mg ORAL q 6 H PRN Dipika Frederick APRN.DATA COMMUNICATIONS ANALYST 650 mg at 06/24/222109 iyvbmea-lbiozckvf-jgysesr D3 500 mg-5 mcg (200 unit) 1 tablet 1 tablet ORAL BID Dipika Frederick APRN.DATA COMMUNICATIONS ANALYST 1 tablet at 06/24/222044 budesonide, enteric coated 6 mg cap(s) (ENTOCORT EC) 6 mg ORAL BEFORE BREAKFAST DAILY Dipika Frederick APRN.DATA COMMUNICATIONS ANALYST 6 mg at 06/24/22900 therapeutic multivitamin-minerals tablet (THERA-M PLUS) 1 tablet ORAL DAILY Dipika Frederick APRN.CNP 1 tablet at 06/24/22900 meloxicam 7.5 mg tab(s) (MOBIC) 7.5 mg ORAL DAILY Dipika Frederick APRN.DATA COMMUNICATIONS ANALYST 7.5 mg at 06/24/22900 aspirin, enteric coated 81 mg tab(s) 81 mg ORAL DAILY Dipika Frederick APRN.CNP 81 mg at 06/24/22901 DULoxetine 30 mg cap(s) (CYMBALTA) 30 mg ORAL AT BEDTIME Dipika Frederick APRN.DATA COMMUNICATIONS ANALYST 30 mg at 06/24/222044 rosuvastatin 5 mg tab(s) (CRESTOR) 5 mg ORAL AT BEDTIME Dipika Frederick APRN.DATA COMMUNICATIONS ANALYST 5 mg at 06/24/222044 cefTRIAXone iv piggyback 1 g in dextrose (iso-osmotic) 50 mL (ROCEPHIN) 1 g INTRAVENOUS q 24 H Dipika Frederick APRN.DATA COMMUNICATIONS ANALYST Stopped at 06/24/[address] 40 mg tab(s) (PROTONIX) 40 mg ORAL DAILY (6 AM) Dipika Frederick APRN.DATA COMMUNICATIONS ANALYST 40 mg at 06/24/22 0546 remdesivir in NaCl 0.9% Vial-Mate/ADD-Moline 100 mg 275 mL 100 mg INTRAVENOUS q 24 HR Vivien Dietz MD Stopped at 06/24/22 203 dexAMETHasone 6 mg tab(s) (DECADRON) 6 mg ORAL DAILY WITH BREAKFAST Vivien Dietz MD 6 mg at 06/24/22 0901 melatonin 3 mg tab(s) 3 mg ORAL AT BEDTIME PRN Cb Singh APRN.DATA COMMUNICATIONS ANALYST 3 mg at 06/24/220 Intake/Output Summary (Last 24 hours) at 06/25/2022 [...] Value 06/24/2022 3.9 Chloride (more content not included)...[id number] NoteHNO ID: [id number] Author: Leonela Stein MD Service: ? Author Type: Physician Type: Progress Notes Filed: 06/23/2022 8:05 PM Note Text: [facility] - General Progress Note CHRISTIAN SUGGS : 1945 AGE: 76 SEX: F CSN: [id number] [facility]: [facility] LOCATION: [facility] ATTENDING PHYSICIAN: Leonela Stein M.D. DATE [...] CT finding of the endometrial mass. Consulted Accreditation Coordinator. 5. Acute cystitis. IV ceftriaxone. Urine culture and sensitivity. 6. Generalized weakness. She had a CT, could not rule out MVH. Consider Neuro consultation. Case has been discussed with the ED, consultants. We will follow up. Leonela Stein M.D. Internal Medicine RICHTER:[id number] NoteHNO ID: [id number] Author: Dipika Frederick APRN.DATA COMMUNICATIONS ANALYST Service: Hospital Medicine Author Type: Nurse Practitioner Type: Plan of Care Filed: 06/23/2022 2:20 AM Note Text: This is 76-year-old female with past medical history significant for arthritis and right thigh melanoma who presents as a transfer from [place] emergency department for weakness and a fall. Her fall occurred at home. Patient's daughter states that she was getting up to go to the bathroom and fell. Unsure if she hit her head or not. Prior to that she was recently admitted for observation at [facility] for generalized weakness and COVID and discharged [...] She was admitted as a transfer to [facility] for further work-up of the above. PHYSICAL [...] indication for IVF - Defer decision regarding orthopaedic nurse consult for inpatient vs. outpatient workup of endometrial canal mass to primary team in AM - Contact/droplet precautions for known prior COVID-19 infection - Continuous telemetry - Fall precautionsBridgewater State [id number] NoteHNO ID: [id number] Author: RT Bandar(Debbie) Service: ? Author Type: Technologist Type: Progress [...] Suggs DATE: May 30, 2022 TIME: 11:33 [facility]11-10-2022 History of Present illness Narrative* Zulema [...] 2022 TIME: 11:33 AM [facility] History of Present illness Narrative* Jean Rodríguez MD - 03/26/2022 11:00 AM EDT NEUROSURGERY FOLLOW UP OFFICE NOTE Dr. Jean Rodríguez MD, FACS Date of visit: March 26, 2022 Patient Name: Ms.Tuula North Suggs Date of : 1945 Current Age: [age] year old Sex: female MRN/E# [id number] Last Office Visit: 03/05/2022 Chief Complaint: Patient presents with: Established Patient SUBJECTIVE: The patient presents as a follow-up with imaging (MRI/MRA B) for evaluation. She was recently seen for consult on 03/05/2022 as referral from the [place] emergency department. She had sustained a fall [...] said she does have a neurologist in [place] that requested a copy of the reports [...] be a patient that benefits from the LEVELMAN shunt.We are going to provide her with discs with the images of the MRI MRA as well as the reports. Jean Rodríguez MD Follow Up: Return if symptoms worsen or fail to improve. This note was partially generated using Worlize voice recognition system, and there may be some incorrect words, spellings, and punctuation that were not noted in checking the note before saving. [facility] History of Past illness Narrative* Problem Noted Date Resolved Date Neck pain 06/08/2021 08/17/2021 Frequent falls 06/08/2021 08/17/2021 Weakness of back 06/08/2021 08/17/2021 documented as of this encounter (statuses as of 03/26/2022) [facility] History of Past illness Narrative* Problem Noted Date Diagnosed Date Resolved Date Neck pain 06/08/2021 08/17/2021 Frequent falls 06/08/2021 08/17/2021 Weakness of back 06/08/2021 08/17/2021 documented as of this encounter (statuses as of 05/25/2023) [facility] History of Present illness Narrative* Chris Gonzalez [...] 18, 2021 12:35 PM documented in this encounterSam[facility] HospitalEvaluation [facility]* Diagnosis Onset Date Resolution Status GERD (gastroesophageal reflux disease) acute Lymphocytic colitis acute Obesity acute GERD (gastroesophageal reflux disease) acute Lymphocytic colitis acute Obesity acute [facility] Work Phone: Evaluation note* Diagnosis Onset Date Resolution Status GERD (gastroesophageal reflux disease) acute Lymphocytic colitis acute Obesity acute GERD (gastroesophageal reflux disease) acute Lymphocytic colitis acute Obesity acute Abnormality of gait and mobility chronic Low back pain chronic Mild cognitive impairment ch ronic Neck pain chronic [facility] Work Phone: Evaluation note* Diagnosis Onset Date Resolution Status GERD (gastroesophageal reflux disease) acute Lymphocytic colitis acute Obesity acute Abnormality of gait and mobility chronic Low back pain chronic Mild cognitive impairment ch ronic Neck pain chronic GERD (gastroesophageal reflux disease) acute Lymphocytic colitis acute Abnormality of gait and mobility chronic [facility] Work Phone: Evaluation note* Diagnosis Onset Date Resolution Status GERD (gastroesophageal reflux disease) acute Lymphocytic colitis acute Abnormality of gait and mobility chronic Abnormality of gait and mobility chronic Chronic lumbar radiculopathy chronic Low back pain chronic Mild cognitive impairment ch ronic Neck pain chronic Normal pressure hydrocephalus chronic [facility] Work Phone: Evaluation note* Diagnosis Cerebral ventriculomegaly- Primary Other conditions of brain [facility] Diagnosis Onset Date Resolution Status Abnormality of gait and mobility chronic Chronic lumbar radiculopathy chronic Low back pain chronic Mild cognitive impairment ch ronic Neck pain chronic Normal pressure hydrocephalus chronic GERD (gastroesophageal reflux disease) chronic Lymphocytic colitis chronic Obesity chronic [facility] Work Phone: Evaluation note* Diagnosis Onset Date [...] Neck pain chronic Normal pressure hydrocephalus chronic [facility] Work Phone: Evaluation note* Diagnosis Onset Date [...] Neck pain chronic Normal pressure hydrocephalus chronic [facility] Work Phone: Evaluation note* Diagnosis Abnormal CT scan- Primary Other nonspecific (abnormal) findings on radiological and other examinations of body structure [facility] [place] [facility]* Diagnosis Intramural leiomyoma of uterus- Primary [facility]* Diagnosis Endometrial polyp- Primary Polyp of corpus uteri Endometrial polyp Polyp of corpus uteri [facility] [place] [facility]* Diagnosis Abnormal CT scan Other nonspecific (abnormal) findings on radiological and other examinations of body structure Preoperative examination- Primary Preoperative examination, unspecified Endometrial polyp Polyp of corpus uteri documented in this encounter [facility] note* Diagnosis Preoperative examination- Primary Preoperative examination, unspecified NPH (normal pressure hydrocephalus) (HCC) Idiopathic normal pressure hydrocephalus (INPH) KIASER (obstructive sleep apnea) Obstructive sleep apnea (adult) (pediatric) History of pulmonary embolism Personal history of pulmonary embolism Hyperlipidemia, unspecified hyperlipidemia type Lymphocytic colitis Other and unspecified noninfectious gastroenteritis and colitis Gastroesophageal reflux disease, unspecified whether esophagitis present Urinary retention Retention of urine, unspecified Endometrial polyp Polyp of corpus uteri documented [facility] this encounter [facility] [place] [facility]* Diagnosis [...] impairment ch ronic Normal pressure hydrocephalus chronic [facility] Work Phone: Evaluation note* Diagnosis NPH (normal pressure hydrocephalus) (HCC)- Primary Idiopathic normal pressure hydrocephalus (INPH) documented in this encounter [facility] note* Diagnosis NPH (normal pressure hydrocephalus) (HCC)- Primary Idiopathic normal pressure hydrocephalus (INPH) Other hydrocephalus (HCC) documented in this encounter [facility] [place] [facility]* Diagnosis NPH (normal pressure hydrocephalus) (HCC)- Primary Idiopathic normal pressure hydrocephalus (INPH) NPH (normal pressure hydrocephalus) (HCC) Idiopathic normal pressure hydrocephalus (INPH) documented in this encounter [facility] [place] [facility]* Diagnosis Preop testing- [...] pressure hydrocephalus (INPH) documented in this encounter [facility] [place] [facility]* Diagnosis Other hydrocephalus (HCC)- Primary documented in this encounter [facility] note* Diagnosis NPH (normal pressure hydrocephalus) (HCC)- Primary 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 Presence of cerebrospinal fluid drainage device documented in this encounter [facility] [place] [facility]* Diagnosis Other hydrocephalus (HCC) documented in this encounter [facility] [place] [facility]* Diagnosis NPH (normal pressure hydrocephalus) (HCC)- Primary 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 Presence of cerebrospinal fluid drainage device documented in this encounter [facility] [place] [facility]* Diagnosis [...] pressure hydrocephalus chronic Biliary dyskinesia acute S/P LEVELMAN shunt acute [facility] Work Phone: Evaluation note* Diagnosis NPH (normal pressure hydrocephalus) (HCC) 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 Presence of cerebrospinal fluid drainage device documented [facility] this encounter [facility] [place] [facility]* Diagnosis NPH (normal pressure hydrocephalus) (HCC)- Primary 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 Presence of cerebrospinal fluid drainage device documented in this encounter [facility] [place] [facility]* Diagnosis S/P ventriculoperitoneal shunt Presence of cerebrospinal fluid drainage device NPH (normal pressure hydrocephalus) (HCC) Idiopathic normal pressure hydrocephalus (INPH) documented in this encounter [facility] [place] [facility]* Diagnosis Onset Date Resolution Status Mild cognitive impairment ch ronic Normal pressure hydrocephalus chronic Urinary frequency chronic Collagenous colitis chronic GERD (gastroesophageal reflux disease) chronic Lymphocytic colitis chronic Obesity [facility] Work Phone: Evaluation note* Diagnosis Onset Date Resolution Status Collagenous colitis chronic GERD (gastroesophageal reflux disease) chronic Lymphocytic colitis chronic Obesity [facility] Work Phone: Evaluation note* Diagnosis NPH (normal pressure hydrocephalus) (HCC)- Primary 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 Presence of cerebrospinal fluid drainage device documented in this encounter [facility] note* Diagnosis Primary osteoarthritis of both hands [...] of urine, unspecified documented in this encounter [facility] [place] [facility]* Diagnosis Fall at [...] unspecified site, unspecified whether rheumatoid factor present ([facility]) NPH (normal pressure hydrocephalus) (HCC) [G91.2 (ICD-10-CM)] Idiopathic normal pressure hydrocephalus (INPH) NPH (normal pressure hydrocephalus) (HCC)- Primary 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 Presence of cerebrospinal fluid drainage device documented in this encounter [facility] Hospital[facility] noteNo assessment information availableWMercer County [facility] Work Phone: Reason for referral (narrative)* Diagnostic Procedure Only (Routine) - Authorized Specialty Diagnoses / Procedures Referred By Contac t Referred To Contact [facility] [place] [facility] scan Procedures PELVIC US [facility] US PELVIC NONOBSTETRIC REAL-TIME IMAGE COMPLETE Faby Santana MD [address] [place] [address] [facility] [address] [place] [address] Referral ID Status Reason Start Date Expiration Date Visits Requested Visits Authorized [id number] Authorized Auto-Generat ed Referral 2 07/18/2023 1 1 [facility] for referral (narrative)* Diagnostic Procedure Only (Routine) - Closed Specialty Diagnoses / Procedures Referred By Contac t Referred To Contact XR IMAGING Diagnoses Primary osteoarthritis of both hands Procedures XR HAND GENERAL 3V PA/LAT/OBL BILAT X-RAY HAND MINIMUM [address] [place] [address] [place] [address] Xr Imaging [facility] Referral ID Status Reason Start Date Expiration Date V isits Requested Visits Authorized [id number] Closed Auto-Generate d Referral 05/18/2021 06/17/2022 1 1 [facility] for referral (narrative)No reason for referral information availableWMercer County Community Hospital Work Phone: Reason for visit Narrative* Diagnostic Procedure Only (Routine) - Closed Specialty Diagnoses / Procedures [facility] [place] Abnormal CT scan Procedures PELVIC US [facility] US PELVIC NONOBSTETRIC REAL-TIME IMAGE COMPLETE Faby Santana MD [address] [place] [address] [facility] [address] [place] [address] Referral ID Status Reason Start Date Expiration Date V isits Requested Visits Authorized [id number] Closed Auto-Generate d Referral 07/19/2022 07/18/2023 1 1 [facility] Chief Complaint and Reason for Visit Chief [...] impairment Normal pressure hydrocephalus Biliary dyskinesia S/P LEVELMAN shunt Chief Complaint 4 M FU FU Reason for Visit Mild cognitive impai rment Normal pressure hydrocephalus Urinary frequency Collagenous colitis GERD (gastroesophageal reflux disease) Lymphocytic colitis Obesity Chief Complaint 6 MO FO Reason for Visit Collagenous colitis GERD (gastroesophageal reflux disease) Lymphocytic colitis Obesity Chief Complaint Admit Date April 11, 2025 7:16am April 11, 2025 7:37am Advance Directives No Advanced Directives Records Found Advance Directive Response Recorded Date/ Time Advance Directives No May 26, 2019 9:40am Living Will No May 23 12:38pm Power of Manager Bench No May 23, 2021 12:38pm Advance Directive Response Recorded Date/ Time Advance Directives No May 26, 2019 8:40am Living Will No May 23 11:38am Power of Manager Bench No May 23, 2021 11:38am Advance Directive Response Recorded Date/ Time Advance Directives No May 26, 2019 9:40am Living Will No November 26, 2022 10 :47am Power of Manager Bench No November 26, 2022 10:47am Advance Directive Response Recorded Date/ Time Advance Directives No May 26, 2019 9:40am Family History No Family History Records Found Relationship Condition Age at Onset Recorded Date/T ever brother Malignant neoplasm Unknown Alcoholism Unknown sister Anxiety Unknown Depression Unknown Summary Purpose Reason for Referral Specialty Diagnoses / Procedures Referred By Contac t Referred To Contact CT IMAGING Diagnoses Other hydrocephalus (HCC) Procedures CT BRAIN WO IVCON CT HEAD/BRAIN W/O CONTRAST MATERIAL Lynn Murdock, DIRECTOR OF VOCATIONAL TRAINING.DATA COMMUNICATIONS ANALYST [address] [place] [address] Ct Imaging Referral ID Status Reason Start Date Expiration Date Visits Requested Visits Authorized [id number] Pending Review Auto-Generat ed Referral 10/16/2022 10/26/2023 1 1 Specialty Diagnoses / Procedures Referred By Contac t Referred To Contact CT IMAGING Diagnoses Other hydrocephalus (HCC) Procedures CT BRAIN WO IVCON CT HEAD/BRAIN W/O CONTRAST MATERIAL Chacha Stein PA-C [address] [place] [address] Ct Imaging Referral ID Status Reason Start Date Expiration Date Visits Requested Visits Authorized [id number] Pending Review Auto-Generat ed Referral 10/21/2022 11/20/2023 1 1 Referral ID Status Reason Start Date Expiration Date V isits Requested Visits Authorized [id number] Closed Auto-Generate d Referral 10/21/2022 04/28/2023 1 1 Specialty Diagnoses / Procedures [facility] Referred To Contact CT IMAGING Diagnoses NPH (normal pressure hydrocephalus) (HCC) S/P ventriculoperitoneal shunt Procedures CT BRAIN WO IVCON CT HEAD/BRAIN W/O CONTRAST MATERIAL Lynn Murdock, DIRECTOR OF VOCATIONAL TRAINING.DATA COMMUNICATIONS ANALYST [address] [place] [address] Ct Imaging Referral ID Status Reason Start Date Expiration Date Visits Requested Visits Authorized [id number] Pending Review Auto-Generat ed Referral 11/13/2022 12/13/2023 1 1 Referral ID Status Reason Start Date Expiration Date V isits Requested Visits Authorized [id number] Closed Auto-Generate d Referral 11/13/2022 12/13/2023 1 [...] or prosecute any alcohol or drug abuse patient.[facility] HospitalIn the event this information is protected by the Federal Confidentiality of Alcohol and Drug Abuse Patient Records regulations: The Federal rules restrict any use of the information to criminally investigate or prosecute any alcohol or drug abuse patient.[facility] HospitalIn the event this information is protected by the Federal Confidentiality of Alcohol and Drug Abuse Patient Records regulations: The Federal rules restrict any use of the information to criminally investigate or prosecute any alcohol or drug abuse patient.[facility] HospitalIn the event this information is protected by the Federal Confidentiality of Alcohol and Drug Abuse Patient Records regulations: The Federal rules restrict any use of the information to criminally investigate or prosecute any alcohol or drug abuse patient.[facility] HospitalIn the event this information is protected by the Federal Confidentiality of Alcohol and Drug Abuse Patient Records regulations: The Federal rules restrict any use of the information to criminally investigate or prosecute any alcohol or drug abuse patient.[facility] HospitalIn the event this information is protected by the Federal Confidentiality of Alcohol and Drug Abuse Patient Records regulations: The Federal rules restrict any use of the information to criminally investigate or prosecute any alcohol or drug abuse patient.[facility] HospitalIn the event this information is protected by the Federal Confidentiality of Alcohol and Drug Abuse Patient Records regulations: The Federal rules restrict any use of the information to criminally investigate or prosecute any alcohol or drug abuse patient.[facility] HospitalIn the event this information is protected by the Federal Confidentiality of Alcohol and Drug Abuse Patient Records regulations: The Federal rules restrict any use of the information to criminally investigate or prosecute any alcohol or drug abuse patient.[facility] HospitalIn the event this information is protected by the Federal Confidentiality of Alcohol and Drug Abuse Patient Records regulations: The Federal rules restrict any use of the information to criminally investigate or prosecute any alcohol or drug abuse patient.[facility] HospitalIn the event this information is protected by the Federal Confidentiality of Alcohol and Drug Abuse Patient Records regulations: The Federal rules restrict any use of the information to criminally investigate or prosecute any alcohol or drug abuse patient.[facility] HospitalIn the event this information is protected by the Federal Confidentiality of Alcohol and Drug Abuse Patient Records regulations: The Federal rules restrict any use of the information to criminally investigate or prosecute any alcohol or drug abuse patient.[facility] HospitalIn the event this information is protected by the Federal Confidentiality of Alcohol and Drug Abuse Patient Records regulations: The Federal rules restrict any use of the information to criminally investigate or prosecute any alcohol or drug abuse patient.[facility] HospitalIn the event this information is protected by the Federal Confidentiality of Alcohol and Drug Abuse Patient Records regulations: The Federal rules restrict any use of the information to criminally investigate or prosecute any alcohol or drug abuse patient.[facility] HospitalIn the event this information is protected by the Federal Confidentiality of Alcohol and Drug Abuse Patient Records regulations: The Federal rules restrict any use of the information to criminally investigate or prosecute any alcohol or drug abuse patient.[facility] HospitalIn the event this information is protected by the Federal Confidentiality of Alcohol and Drug Abuse Patient Records regulations: The Federal rules restrict any use of the information to criminally investigate or prosecute any alcohol or drug abuse patient.[facility] HospitalIn the event this information is protected by the Federal Confidentiality of Alcohol and Drug Abuse Patient Records regulations: The Federal rules restrict any use of the information to criminally investigate or prosecute any alcohol or drug abuse patient.[facility] HospitalIn the event this information is protected by the Federal Confidentiality of Alcohol and Drug Abuse Patient Records regulations: The Federal rules restrict any use of the information to criminally investigate or prosecute any alcohol or drug abuse patient.[facility] HospitalIn the event this information is protected by the Federal Confidentiality of Alcohol and Drug Abuse Patient Records regulations: The Federal rules restrict any use of the information to criminally investigate or prosecute any alcohol or drug abuse patient.[facility] HospitalIn the event this information is protected by the Federal Confidentiality of Alcohol and Drug Abuse Patient Records regulations: The Federal rules restrict any use of the information to criminally investigate or prosecute any alcohol or drug abuse patient.[facility] HospitalIn the event this information is protected by the Federal Confidentiality of Alcohol and Drug Abuse Patient Records regulations: The Federal rules restrict any use of the information to criminally investigate or prosecute any alcohol or drug abuse patient.[facility] HospitalIn the event this information is protected by the Federal Confidentiality of Alcohol and Drug Abuse Patient Records regulations: The Federal rules restrict any use of the information to criminally investigate or prosecute any alcohol or drug abuse patient.[facility] HospitalIn the event this information is protected by the Federal Confidentiality of Alcohol and Drug Abuse Patient Records regulations: The Federal rules restrict any use of the information to criminally investigate or prosecute any alcohol or drug abuse patient.[facility] HospitalIn the event this information is protected by the Federal Confidentiality of Alcohol and Drug Abuse Patient Records regulations: The Federal rules restrict any use of the information to criminally investigate or prosecute any alcohol or drug abuse patient.[facility] HospitalIn the event this information is protected by the Federal Confidentiality of Alcohol and Drug Abuse Patient Records regulations: The Federal rules restrict any use of the information to criminally investigate or prosecute any alcohol or drug abuse patient.[facility] HospitalIn the event this information is protected by the Federal Confidentiality of Alcohol and Drug Abuse Patient Records regulations: The Federal rules restrict any use of the information to criminally investigate or prosecute any alcohol or drug abuse patient.[facility] HospitalIn the event this information is protected by the Federal Confidentiality of Alcohol and Drug Abuse Patient Records regulations: The Federal rules restrict any use of the information to criminally investigate or prosecute any alcohol or drug abuse patient.[facility] HospitalIn the event this information is protected by the Federal Confidentiality of Alcohol and Drug Abuse Patient Records regulations: The Federal rules restrict any use of the information to criminally investigate or prosecute any alcohol or drug abuse patient.[facility] HospitalIn the event this information is protected by the Federal Confidentiality of Alcohol and Drug Abuse Patient Records regulations: The Federal rules restrict any use of the information to criminally investigate or prosecute any alcohol or drug abuse patient.[facility] HospitalIn the event this information is protected by the Federal Confidentiality of Alcohol and Drug Abuse Patient Records regulations: The Federal rules restrict any use of the information to criminally investigate or prosecute any alcohol or drug abuse patient.[facility] HospitalIn the event this information is protected by the Federal Confidentiality of Alcohol and Drug Abuse Patient Records regulations: The Federal rules restrict any use of the information to criminally investigate or prosecute any alcohol or drug abuse patient.[facility] HospitalIn the event this information is protected by the Federal Confidentiality of Alcohol and Drug Abuse Patient Records regulations: The Federal rules restrict any use of the information to criminally investigate or prosecute any alcohol or drug abuse patient.[facility] HospitalIn the event this information is protected by the Federal Confidentiality of Alcohol and Drug Abuse Patient Records regulations: The Federal rules restrict any use of the information to criminally investigate or prosecute any alcohol or drug abuse patient.[facility] HospitalIn the event this information is protected by the Federal Confidentiality of Alcohol and Drug Abuse Patient Records regulations: The Federal rules restrict any use of the information to criminally investigate or prosecute any alcohol or drug abuse patient.[facility] HospitalIn the event this information is protected by the Federal Confidentiality of Alcohol and Drug Abuse Patient Records regulations: The Federal rules restrict any use of the information to criminally investigate or prosecute any alcohol or drug abuse patient.[facility] Reason for Visit (unrecogniz ed section and content) Reason Comments Established Patient Specialty Diagnoses / Procedures Referred By Contac t Referred To Contact Neurosurgery / NEUROSURGERY Diagnoses Follow-up exam follow up per pcp Procedures OFFICE/OUTPATIENT ESTABLISHED MOD MDM 30-39 MIN EST PATIENT Self Jean Rodríguez MD [address] [address] Referral ID Status Reason Start Date Expiration Date Visits Re quested Visits Authorized [id number] Closed 07/21/2022 12/25/2022 1 1 Specialty Diagnoses / Procedures Referred By Contac t Referred To Contact MR IMAGING Diagnoses Family history of ischemic heart disease and other diseases of the circulatory system Procedures MRA BRAIN WO IVCON MRA, HEAD W/O CONTRAST Lynn Murdock APRN.DATA COMMUNICATIONS ANALYST [address] [address] Mr Imaging Referral ID Status Reason Start Date Expiration Date V isits Requested Visits Authorized [id number] Closed Auto-Generate d Referral 03/05/2022 04/04/2023 1 1 Reason Comments Future Appointment Reason Comments Results Reason Comments Patient Update Reason Comments [employer] Ultrasound Reason Comments Schedule Surgery Reason Comments Consult Specialty Diagnoses / Procedures Referred By Contac t Referred To Contact CT IMAGING Diagnoses Other hydrocephalus (HCC) Procedures CT BRAIN WO IVCON CT HEAD/BRAIN W/O CONTRAST MATERIAL Chacha Stein, LCC [address] [address] Ct Imaging Referral ID Status Reason Start Date Expiration Date V isits Requested Visits Authorized [id number] Closed Auto-Generate d Referral 10/21/2022 04/28/2023 1 1 Reason Comments Post Op Reason Comments Returning Patient's Call Reason Comments Appointment Specialty Diagnoses / Procedures Referred By Contac t Referred To Contact Neurosurgery / NEUROSURGERY Diagnoses [address] today Procedures OFFICE/OUTPATIENT ESTABLISHED MOD [facility] 30-39 MIN EST PATIENT Lilo Grullon [address] [place] [address] Jean Rodríguez MD [address] [place] [address] Referral ID Status Reason Start Date Expiration Date Visits Re quested Visits Authorized [id number] Closed 07/21/2022 07/20/2023 1 1 Specialty Diagnoses / Procedures Referred By Contac t Referred To Contact CT IMAGING Diagnoses NPH (normal pressure hydrocephalus) (HCC) S/P ventriculoperitoneal shunt Procedures CT BRAIN WO IVCON CT HEAD/BRAIN W/O CONTRAST MATERIAL Lynn Murdock, RITO.DATA COMMUNICATIONS ANALYST [address] [place] [address] Ct Imaging Referral ID Status Reason Start Date Expiration Date V isits Requested Visits Authorized [id number] Closed Auto-Generate d Referral 11/13/2022 12/13/2023 1 1 Specialty Diagnoses / Procedures Referred By Contac t Referred To Contact Neurosurgery / NEUROSURGERY Diagnoses 1 month f/u with CT Procedures OFFICE/OUTPATIENT ESTABLISHED MOD [facility] 30-39 MIN EST PATIENT Lilo Grullon [address] [facility] [address] [place] [address] Jean Rodríguez MD [address] [place] [address] Referral ID Status Reason Start Date Expiration Date Visits Re quested Visits Authorized [id number] Closed 07/21/2022 07/20/2023 1 1 Specialty Diagnoses / Procedures Referred By Contac t Referred To Contact CT IMAGING Diagnoses S/P ventriculoperitoneal shunt NPH (normal pressure hydrocephalus) (HCC) Procedures CT BRAIN WO IVCON CT HEAD/BRAIN W/O CONTRAST MATERIAL Jean Rodríguez MD [address] [place] [address] Ct Imaging Referral ID Status Reason Start Date Expiration Date V isits Requested Visits Authorized [id number] Closed Auto-Generate d Referral 10/30/2022 11/29/2023 1 1 Reason Comments Radio Gen RMP Specialty Diagnoses / Procedures Referred By Contac t Referred To Contact XR IMAGING Diagnoses Primary osteoarthritis of both hands Procedures XR HAND GENERAL 3V PA/LAT/OBL BILAT X-RAY HAND MINIMUM [address] [place] [address] [place] [address] [place] [id number] Referral ID Status Reason Start Date Expiration Date V isits Requested Visits Authorized [id number] Closed Auto-Generate d Referral 05/18/2021 06/17/2022 1 1 Care Teams (unrecognized sec tion and content) Slab Stripper Relationship Specialty Start Date End Date Lilo Grullon PCP - General Family Practice 12/28/15 Slab Stripper Relationship Specialty Start Date End Date Lilo Grullon PCP - General Family Medicine 12/28/15 Slab Stripper Relationship Specialty Start Date End Date Lilo Grullon PCP - General Family Medicine 12/28/15 Slab Stripper Relationship Specialty Start Date End Date Lilo Grullon PCP - General Family Medicine 12/28/15 Slab Stripper Relationship Specialty Start Date End Date Lilo Grullon PCP - General Family Medicine 12/28/15 Slab Stripper Relationship Specialty Start Date End Date Lilo Grullon PCP - General Family Medicine 12/28/15 Slab Stripper Relationship Specialty Start Date End Date Lilo [...] Ruggiero MD Attending Provider, Referring Provider Active Slab Stripper Relationship Specialty Start Date End Date Lilo Grullon PCP - General Family Medicine 12/28/15 Slab Stripper Relationship Specialty Start Date End Date KhushbooLilo hamilton PCP - General Family Medicine 12/28/15 Slab Stripper Relationship Specialty Start Date End Date Lilo Grullon PCP - General Family Medicine 12/28/15 Slab Stripper Relationship Specialty Start Date End Date Lilo Grullon PCP - General Family Medicine 12/28/15 Slab Stripper Relationship Specialty Start Date End Date Lilo Grullon Leah PCP - General Family Medicine 12/28/15 Slab Stripper Relationship Specialty Start Date End Date Lilo Grullon PCP - General Family Medicine 12/28/15 Slab Stripper Relationship Specialty Start Date End Date Lilo Grullon Leah PCP - General Family Medicine 12/28/15 Slab Stripper Relationship Specialty Start Date End Date Lilo Grullon Leah PCP - General Family Medicine 12/28/15 Slab Stripper Relationship Specialty Start Date End Date Jocelynkaterina Lilo Lynn PCP - General Family Medicine 12/28/15 Team Status: Inactive Member Role Status Dates Dr. Lilo Grullon MD Primary Care Provider Active Dr. Radha Singh MD Attending Provider, Referring Provider Active Team Status: Active Member Role Status Dates Dr. Lilo Grullon MD Primary Care Provider Active Dr. Radha Singh MD Attending Provi len, Referring Provider, Other Provider Active Slab Stripper Relationship Specialty Start Date End Date Mitchel Lilo Lynn PCP - General Family Medicine 12/28/15 Slab Stripper Relationship Specialty Start Date End Date MitchelLilo PCP - General Family Medicine 12/28/15 Slab Stripper Relationship Specialty Start Date End Date Mitchel Lilo Lynn PCP - General Family Medicine 12/28/15 Slab Stripper Relationship Specialty Start Date End Date Lilo Grullon PCP - General Family Medicine 12/28/15 Slab Stripper Relationship Specialty Start Date End Date Lilo Grullon PCP - General Family Medicine 12/28/15 Team Status: Inactive Member Role Status Dates Dr. Lilo Grullon MD Primary [facility] Active Slab Stripper Relationship Specialty Start Date End Date Lilo Grullon PCP - General Family Medicine 12/28/15 Slab Stripper Relationship Specialty Start Date End Date Lilo Grullon PCP - General Family Medicine 12/28/15 Slab Stripper Relationship Specialty Start Date End Date Lilo Grullon PCP - General Family Medicine 12/28/15 Slab Stripper Relationship Specialty Start Date End Date Lilo Grullon PCP - General Family Medicine 12/28/15 Slab Stripper Relationship Specialty Start Date End Date Lilo Grullon PCP - General Family Medicine 12/28/15 Slab Stripper Relationship Specialty Start Date End Date Lilo [...] March 14, 2025 End: March 14, 2025 Team Status: Active Member Role/Relationship Status Dates Renan Fishman MD Primary care physician Active Team Status: Inactive Member Role/Relationship Status Dates Dr. Lilo Grullon MD Primary care physician Active Start: January 18, 2025 Dr. Lourdes Dave MD Attending physician Active Start: January 18, 2025 Team Status: Inactive Member Role/Relationship Status Dates Renan Fishman MD Primary care physician Active S tart: March 14, 2025 End: March 14, 2025 Renan Fishman MD Attending physician Active Star t: March 14, 2025 End: March 14, 2025 Renan Fishman MD Referring Provider Active Start : March 14, 2025 End: March 14, 2025 Team Status: Inactive Member Role/Relationship Status Dates Renan Fishman MD Primary care physician Active S tart: April 11, 2025 End: April 11, 2025 eRnan Fishman MD Attending physician Active Star t: April 11, 2025 End: April 11, 2025 Renan Fishman MD Referring Provider Active Start : April 11, 2025 End: April 11, 2025 Team Status: Active Member Role/Relationship Status Dates Renan Fishman MD Primary care physician Active S tart: April 11, 2025 Renan Fishman MD Referring Provider Active Start : April 11, 2025 Dr. Remy Wylie MD Attending physician Active Start: April 11, 2025 INFORMATION SOURCE (unrecogn ized section and content) DATE CREATED AUTHOR 06/29/2022 [facility] DATE CREATED AUTHOR AUTHOR'S ORGANIZ ATION 09/10/2022 [facility] DATE CREATED AUTHOR AUTHOR'S ORGANIZ ATION 12/28/2022 [facility] DATE CREATED AUTHOR AUTHOR'S ORGANIZ ATION 12/16/2024 [facility] DATE CREATED AUTHOR AUTHOR'S ORGANIZ ATION 05/14/2025 [facility] FOR RECORDS PERTAINING TO PATIENTS WHO ARE [...] BE BASED ON THE PRIMARY CLINICAL RECORDS. [facility]. provides no warranty or guarantee of the accuracy or completeness of information in this document.
[2025-06-27 20:05] VITALS: BP 141/78; PULSE 94; RESP 16; TEMP 36.6; O2SAT 95
[2025-06-27] MEDS: MELATONIN 3 MG TABLET PO (20:51)
[2025-06-27] MEDS: APIXABAN 5 MG TABLET PO (20:51)
[2025-06-27 21:00] VITALS: BP 141/78; PULSE 94; RESP 16; TEMP 36.6; O2SAT 95
[2025-06-27 22:00] VITALS: PULSE 66; RESP 16; O2SAT 97
[2025-06-27 23:52] VITALS: BP 141/78; PULSE 94; RESP 16; TEMP 36.6; O2SAT 95
[2025-06-28 06:00] VITALS: BP 114/86; PULSE 82; RESP 16; TEMP 36.8; O2SAT 94
[2025-06-28 06:03] LABS: Hematocrit 37.0 % (37-47); Hemoglobin 12.2 g/dL (12.0-15.0); Mean Corp Hgb Conc 33.0 g/dL (32-36); Mean Corpuscular Volume 87.3 fL (81-99); Mean Platelet Vol. 9.5 fl (6.2-12.0); Platelet Count 350 K/mm3 (150-450); RBC Distribution Width CV 14.9 % (11.6-14.6); RBC Distribution Width SD 47.8 fl (35.1-43.9); Red Blood Count 4.24 M/mm3 (4.2-5.4); White Blood Count 5.9 K/mm3 (4.4-11.0)
[2025-06-28 06:07] LABS: AST(SGOT) 11 U/L (<=31); Alanine Aminotransfer ALT/SGPT 7 U/L (<=34); Albumin, Serum 3.3 g/dL (3.4-4.8); Alkaline Phosphatase 76 U/L (35-104); Anion Gap 11 (5-15); BUN 14 mg/dL (4-19); BUN/Creat Ratio 19.6 RATIO (10-20); Calcium,Total 9.2 mg/dL (7.6-11.0); Carbon Dioxide 23.5 mmol/L (21.0-32.0); Chloride 107 mmol/L (98-108); Globulin 3.0 g/dL (2.2-4.2); Glucose 110 mg/dL (70-99); Potassium 3.9 mmol/L (3.3-5.1)
[2025-06-28 08:00] LABS: Magnesium 2.2 mg/dL (1.5-2.2)
[2025-06-28] MEDS: Senna/Docusate Sodium 1 Tablet 2 TABLET PO ×2 (08:15→19:56)
[2025-06-28] MEDS: APIXABAN 5 MG TABLET PO ×2 (08:15→19:54)
--- NOTE | 2025-06-28 08:27 | HP.PCM_ITS ---
Documented by User: JASMIN Kahn 06/28/25 13:01 HPI - General General Date of Admission: 06/27/25 Date of Service: 06/28/25 Chief Complaint: debility HPI Narrative CHRISTIAN ANNA, is a 79 F who presents to inpatient rehab following admission to [facility] with symptoms of vertigo. She had been admitted to [facility] previously with the same complaint in which she was then discharged to [facility] (06/17/25) after being treated for a UTI utilizing Bactrim for antibiotics. On her repeat admission to the hospital she, reportedly, had lightheadedness that worsened to the point that she was having visual disturbances, right facial pain and diarrhea. At that time, she denied numbness tingling or weakness but did have some nausea with no vomiting. She did have a positive Gastroccult but she denied hemoptysis. He did have a CTA head and neck that showed possible right IJ venous thrombus. She then had an MRI of the brain and CTV done showing dual venous sinus thrombus. She was then started on a heparin drip. She was seen by neurosurgery and hematology and transition to Eliquis. During her second admission she was noted to have acute urinary retention which required Benson catheter placement. She did fail her voiding trial and had Benson replaced. She was continuing on Flomax and will need a repeat voiding trial. She did have a vestibular assessment which showed possible posterior canal BPPV in which she underwent canal repositioning maneuvers. It was recommended at that time by neurology and hematology that she has a repeat CTV or MRV in 3 months to determine duration of Eliquis use. 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 He is patient was seen by Dr. Alvarez with gastroenterology on 07/01/2025 in which he indicated colitis and the possibility of IBS as she has chronic constipation/diarrhea. She was seen by neurology following MRI which indicated that her SITE ENGINEER shunt is in the appropriate positioning. During assessment, I noted to audibly hear her SITE ENGINEER shunt working appropriately. She states that she is having dizziness with standing but states that it is better than it was previously. I did note her to have difficulty with muli-step instructions and noted ataxia in bilateral upper extremities. Very slow to process information. Cuff Stitcher are strong and equal bilaterally as well as strong and equal to bilateral lower extremities. Pt does have hx of [facility] and states that she does not utilize Bipap or Cpap because she didn't tolerate it. Will order a overnight trending pulse ox to see if she will require O2 at night. She also acknowledges that she has been having constipation. Last BM was 2 days ago. Heart sounds were irregular on auscultation. Most likely related to PVC's. She had an ECHO on 04/29/25 that showed mild concentric ventricular hypertrophy with an LVEF 65%, stage I diastolic dysfunction, Mild calcification to the aortic root. VSS: 114/86, 82, 16, 94% and 98.3.*F. Benson Cath in place from previous facility for urinary retention. She lives with her in a 2 story home. She states that she has chair lifts between the first and second floor as well as the first floor and the basement. She did not utilize any devices at home prior to this hospitalization and immediate previous admission. *This note was generated with [employer] dictation software. It may contain incorrect words, spelling, and punctuation that were not noted in checking the note before signing. [facility] Medical History (Updated 06/28/25 @ 14:[address] Montserrat Lyles, ) BPPV (benign paroxysmal positional vertigo) History of colon polyps Osteopenia Wears glasses Post-menopausal Cancer Ambulates with cane High cholesterol Back pain TIA (transient ischemic attack) History of IBS Sleep apnea History of edema History of stress test Urinary retention COVID Skin cancer Hypoglycemia Carpal tunnel syndrome Hx of cataract UTI (urinary tract infection) Obesity GERD (gastroesophageal reflux disease) Wears hearing aid Arthritis Pulmonary embolism Diarrhea Gastric reflux History of Clostridioides difficile infection Eosinophilic gastroenteritis Change in bowel habit Anxiety and depression History of pulmonary embolism Pyelonephritis Rheumatoid arthritis Erosion of suburethral sling Internal hemorrhoid Chronic back pain Osteoarthritis History of Clostridium difficile Sciatic neuropathy Compression fx, lumbar spine Home Medications ?Medication ?Instructions ?Recorded ?Last Taken ?Type multivitamin with folic acid 400 1 tab PO DAILY supple ment 10/13/14 04/16/18 History mcg tablet duloxetine 30 mg capsule,delayed 30 mg PO DAILY CHRONI C PAIN 09/17/18 Unknown History release (Cymbalta) melatonin 5 mg tablet 5 mg PO QHS SLEEP 05/23/21 U nknown History rosuvastatin 5 mg tablet 5 mg PO QHS CHOLESTEROL 10/19 11/09 Unknown History Disability Placard #1 ea 07/10/22 Unknown Rx Stairlift #1 ea 07/10/22 Unknown Rx tamsulosin 0.4 mg capsule 0.4 mg PO QHS urinary retent ion 05/05/24 Unknown Rx #30 caps omeprazole 40 mg capsule,delayed 40 mg PO DAILY GERD # 30 caps 07/12/24 Unknown Rx release apixaban 5 mg tablet (Eliquis) 5 mg PO BID DVT prophyl axis 06/27/25 Unknown History meclizine 12.5 mg tablet 12.5 mg PO TID 06/27/25 Unkn own History nausea/vomiting/diarrhea Allergy/AdvReac Type Severity Reaction Status Date / Time mesalamine AdvReac Intermediate myalgia Verified 09/04/23 14:11 hydrocodone bitartrate (From AdvReac Other Verified 09/04/23 14:11 Vicodin) Metronidazole HCl (From AdvReac Other Verified 09/04/23 14:11 Flagyl) oxycodone HCl (From Percocet) AdvReac Other Verified 09/04/23 14:11 scopolamine AdvReac Other Verified 09/04/23 14:11 Family History Brother Cancer Alcoholism Sister Anxiety Depression Surgical History History of back surgery History of brain shunt History of surgical removal of skin lesion History of carpal tunnel surgery History of right hip replacement History of rotator cuff surgery history of bladder sling Status post total right knee replacement Social History household members: spouse housing: house number of children: 4 Smoking Status: Never smoker second hand exposure: No alcohol intake: never substance use type: does not use what type of physical activity do you participate in: none ye/methodist: Pentecostal seatbelt use: always ROS ROS Narrative dizziness with standing Constitutional Constitutional: Reports fatigue and weakness Eyes Eyes: Reports systems reviewed and no addt'l complaints, except as documented ENT HEENT: Reports systems reviewed and no addt'l complaints, except as documented Cardiovascular Cardiovascular: Reports edema Respiratory/Chest Respiratory/Chest: Reports systems reviewed and no addt'l complaints, except as documented Gastrointestinal Gastrointestinal: Reports constipation Genitourinary Genitourinary: Reports other Details: Benson cath Musculoskeletal Musculoskeletal: Reports difficulty walking and myalgias Integumentary Integumentary: Reports systems reviewed and no addt'l complaints, except as documented Neurologic Neurologic: Reports weakness Psychiatric Psychiatric: Reports as per HPI Endocrine Endocrinology: Reports systems reviewed and no addt'l complaints, except as documented Hematologic/Lymphatic Hematologic/Lymphatic: Reports systems reviewed and no addt'l complaints, except as documented Allergic/Immunologic Allergic/Immunologic: Reports as per HPI Vital Signs Vital Signs Vital Signs: 06/27/25 20:05 06/27/25 21:00 06/27/25 22:00 Temperature 97.8 F 97.8 F Temperature Source Temporal Temporal Pulse Rate 94 94 66 Respiratory Rate 16 16 16 Respiratory Effort Normal Non-Labored Respiratory Depth Normal Respiratory Pattern Normal Blood Pressure 141/78 H 141/78 H Blood Pressure Mean 99 99 Blood Pressure Source Monitor Monitor Blood Pressure Position Semi-Fowlers Semi-Fowlers Blood Pressure Location Right Arm Right Arm Pulse Ox 95 95 97 Oxygen Delivery Method Room Air Room Air Room Air 06/27/25 23:52 06/28/25 06:00 Temperature 97.8 F 98.3 F Temperature Source Temporal Temporal Pulse Rate 94 82 Respiratory Rate 16 16 Respiratory Effort Respiratory Depth Respiratory Pattern Blood Pressure 141/78 H 114/86 H Blood Pressure Mean 99 95 Blood Pressure Source Monitor Blood Pressure Position Semi-Fowlers Blood Pressure Location Right Arm Pulse Ox 95 94 Oxygen Delivery Method Room Air Room Air Indicators for Scoring Admitted with or Primary Diagnosis of CVA/Stroke: Yes Hx of CVA/Stroke: Yes Modified Fence Score MRS Score at time of Evaluation: 3-Moderate disability NIHSS NIHSS 1a. Level of Consciousness: 0 - Alert; keenly responsive 1b. LOC Questions: 0 - Answers BOTH questions correctly 1c. LOC Commands: 0 - Performs BOTH tasks correctly 2. Best Gaze: 0 - Normal 3. Visual: 0 - No visual loss 4. Facial Palsy: 0 - Normal symmetrical movements 5a. Left Arm: 0 - No drift; arm holds 90 (or 45) degrees for full 10 seconds 5b. Right Arm: 0 - No drift; arm holds 90 (or 45) degrees for full 10 seconds 6a. Left Le - No drift; leg holds 30-degree position for full 5 seconds 6b. Right Le - No drift; leg holds 30-degree position for full 5 seconds 7. Limb Ataxia: 2 - Present in 2 limbs 8. Sensory: 0 - Normal; no sensory loss 9. Best Language: 0 - No aphasia; normal 10. Dysarthria: 0 - Normal 11. Extinction and Inattention: 0 - No abnormality Total: 2 Physical Exam Const oriented x3 General Appearance: cooperative Orientation / Consciousness: awake, oriented to person, oriented to place and oriented to time HEENT HEENT Narrative: SITE ENGINEER shunt Eyes PERRL Neck full ROM Chest inspection of chest normal Resp normal respiratory effort, normal air movement, no retractions, no use of accessory muscles and clear to auscultation bilaterally Cardio regular rate and peripheral pulses 2+ throughout Rate: regular rate Heart Sounds: other Other Details: Abnormal beat most likely PVCs. Noted during auscultation. GI normal to inspection, nondistended, normoactive bowel sounds GI Narrative: Constipation x 2 days Bladder / Kidney Exam: catheter in place Back/Spine General Back: other Generalized back pain by history. Extremity normal to inspection Extremity Narrative: Patient states that the edema to bilateral lower extremities chronic. It is nonpitting in nature 1+. Skin no rashes or lesions noted Neuro oriented x3 [place] Coma Scale: document GCS findings Spontaneous Obeys Commands Oriented 15 Sensorium / Orientation: awake Motor Exam: strength 5/5 throughout Psych Activity / Motor Behavior: appropriate eye contact Speech: normal speech Results Medical Records Data Attestation: I reviewed the patient's medical records Lab / Micro Data Attestation: I reviewed the patient's lab results. Lab results narrative: Albumin is low at 3.3. Blood sugar mildly elevated. 06/28/25 05:32 06/28/25 05:32 Labs: Laboratory Results - last 24 hr 06/28/25 05:32: WBC 5.9, RBC 4.24, Hgb 12.2, Hct 37.0, MCV 87.3, MCH 28.8, MCHC 33.0, RDW Std Deviation 47.8 H, RDW Coeff of Gareth 14.9 H, Plt Count 350, MPV 9.5, Sodium 141, Potassium 3.9, Chloride 107, Carbon Dioxide 23.5, Anion Gap 11, BUN 14, Creatinine 0.73, Est GFR (MDRD) Non-Af 82, BUN/Creatinine Ratio 19.6, G lucose 110 H, Calcium 9.2, Phosphorus 3.7, Magnesium 2.2, Total Bilirubin 0.22, AST 11, ALT 7, Alkaline Phosphatase 76, Total Protein 6.3, Albumin 3.3 L, Globulin 3.0, Albumin/Globulin Ratio 1.1 Assessment & Plan Assessment/Plan (1) Debility: (2) Cerebral venous sinus thrombosis: (3) Chronic anticoagulation: (4) Normal pressure hydrocephalus: (5) S/P SITE ENGINEER shunt: (6) Urinary retention with incomplete bladder emptying: (7) Mild cognitive impairment: (8) Abnormality of gait and mobility: (9) Chronic lumbar radiculopathy: (10) Obstructive sleep apnea: (11) History of IBS: (12) Collagenous colitis: (13) Anxiety and depression: (14) BPPV (benign paroxysmal positional vertigo): PLAN: Plan *Continue therapies PT/OT/ST *VS per protocol *fall precautions *O2 per protocol *IS 10 times per hour while awake * I and O per protocol *Cath Care for indwelling benson cath present on admission *overnight trending pulse ox realated to [facility] *Orthostatic vital signs realted to dizziness with standing *KUB to rule out acute reason for constipation *regular diet *Tylenol 650mg PO q 6 hours *Eliquis 5 mg PO bid *Lipitor 10mg QHS *Dulcolax 10mg RC x 1 PRN *CYmbalta 30mg PO daily *MOM 30ml PO x 1 PRN *Antivert 12.5mg PO daily *Melatonin 3 mg PO qHS *Protonix 40mg PO daily *Senna/Docusate 2 tabs PO daily *Flomax 0.4mg PO daily at 1700 *Budesonide 6mg PO dialy Charges/Coding Visit Charges Inpatient E&M: 90097 Init Hosp L2 Documented by User: Dr. Montserrat Lyles DO 06/28/25 14:11 HPI - General General Date of Admission: 06/27/25 [facility] Medical History (Updated 06/28/25 @ 14:[address] Montserrat Lyles DO) BPPV (benign paroxysmal positional vertigo) History of colon polyps Osteopenia Wears glasses Post-menopausal Cancer Ambulates with cane High cholesterol Back pain TIA (transient ischemic attack) History of IBS Sleep apnea History of edema History of stress test Urinary retention COVID Skin cancer Hypoglycemia Carpal tunnel syndrome Hx of cataract UTI (urinary tract infection) Obesity GERD (gastroesophageal reflux disease) Wears hearing aid Arthritis Pulmonary embolism Diarrhea Gastric reflux History of Clostridioides difficile infection Eosinophilic gastroenteritis Change in bowel habit Anxiety and depression History of pulmonary embolism Pyelonephritis Rheumatoid arthritis Erosion of suburethral sling Internal hemorrhoid Chronic back pain Osteoarthritis History of Clostridium difficile Sciatic neuropathy Compression fx, lumbar spine Home Medications ?Medication ?Instructions ?Recorded ?Last Taken ?Type multivitamin with folic acid 400 1 tab PO DAILY supple ment 10/13/14 04/16/18 History mcg tablet duloxetine 30 mg capsule,delayed 30 mg PO DAILY CHRONI C PAIN 09/17/18 Unknown History release (Cymbalta) melatonin 5 mg tablet 5 mg PO QHS SLEEP 05/23/21 U nknown History rosuvastatin 5 mg tablet 5 mg PO QHS CHOLESTEROL 10/19 11/09 Unknown History Disability Placard #1 ea 07/10/22 Unknown Rx Stairlift #1 ea 07/10/22 Unknown Rx tamsulosin 0.4 mg capsule 0.4 mg PO QHS urinary retent ion 05/05/24 Unknown Rx #30 caps omeprazole 40 mg capsule,delayed 40 mg PO DAILY GERD # 30 caps 07/12/24 Unknown Rx release apixaban 5 mg tablet (Eliquis) 5 mg PO BID DVT prophyl axis 06/27/25 Unknown History meclizine 12.5 mg tablet 12.5 mg PO TID 06/27/25 Unkn own History nausea/vomiting/diarrhea Allergy/AdvReac Type Severity Reaction Status Date / Time mesalamine AdvReac Intermediate myalgia Verified 09/04/23 14:11 hydrocodone bitartrate (From AdvReac Other Verified 09/04/23 14:11 Vicodin) Metronidazole HCl (From AdvReac Other Verified 09/04/23 14:11 Flagyl) oxycodone HCl (From Percocet) AdvReac Other Verified 09/04/23 14:11 scopolamine AdvReac Other Verified 09/04/23 14:11 Family History Brother Cancer Alcoholism Sister Anxiety Depression Surgical History History of back surgery History of brain shunt History of surgical removal of skin lesion History of carpal tunnel surgery History of right hip replacement History of rotator cuff surgery history of bladder sling Status post total right knee replacement Social History household members: spouse housing: house number of children: 4 Smoking Status: Never smoker second hand exposure: No alcohol intake: never substance use type: does not use what type of physical activity do you participate in: none ye/methodist: Pentecostal seatbelt use: always NIHSS NIHSS Total: 2 Physical Exam Neuro [place] Coma Scale: document GCS findings 15 Results Lab / Micro Data 06/28/25 05:32 06/28/25 05:32 Assessment & Plan Assessment/Plan (1) Debility: (2) Cerebral venous sinus thrombosis: (3) Chronic anticoagulation: (4) Normal pressure hydrocephalus: (5) S/P SITE ENGINEER shunt: (6) Urinary retention with incomplete bladder emptying: PLAN: Etiology? (7) Mild cognitive impairment: (8) Abnormality of gait and mobility: (9) Chronic lumbar radiculopathy: PLAN: Denies radicular pain to me but states she has chronic low back pain. (10) Obstructive sleep apnea: PLAN: Has never been treated for sleep apnea and had a negative sleep study in 2002. (11) History of IBS: PLAN: Alternating diarrhea and constipation. (12) Collagenous colitis: PLAN: Noncompliant with budesonide. (13) Anxiety and depression: (14) BPPV (benign paroxysmal positional vertigo): PLAN: Plan *Continue therapies PT/OT/ST *VS per protocol *fall precautions *O2 per protocol *IS 10 times per hour while awake * I and O per protocol *Cath Care for indwelling benson cath present on admission *overnight trending pulse ox realated to [facility] *Orthostatic vital signs realted to dizziness with standing *KUB to rule out acute reason for constipation *regular diet *Tylenol 650mg PO q 6 hours *Eliquis 5 mg PO bid *Lipitor 10mg QHS *Dulcolax 10mg RC x 1 PRN *CYmbalta 30mg PO daily *MOM 30ml PO x 1 PRN *Antivert 12.5mg PO 3 times daily as needed not scheduled *Melatonin 3 mg PO qHS *Protonix 40mg PO daily *Senna/Docusate 2 tabs PO daily *Flomax 0.4mg PO daily at 1700 *Budesonide 6mg PO dialy Voiding trial in a few days I personally supervised the nurse practitioner in the evaluation and development of a treatment plan for this patient on the same day of service. I personally discussed the review of systems and interviewed the patient along with performing a physical examination. I discussed the patient's condition and treatment options with the patient. All questions were answered. My findings agree with the nurse practitioners note except for any details corrected below. She has seen Dr. Alvarez multiple times in the past for diarrhea/constipation/abdominal pain. She has collagenous colitis and is supposed to be taking budesonide but is often noncompliant with this. Today she is primarily complaining of constipation. She also states that she has obstructive sleep apnea but has never had CPAP. She did have a sleep study in 2002 at [facility] and at that time she did not have sleep apnea. She tells me that she experienced weakness in her legs and felt as though she was going to fall 1 day. She also had vertigo and nausea.. She presented to [facility] emergency department and was diagnosed with a urinary tract infection. She was admitted to their rehab unit on Bactrim. She developed visual disturbances, right facial pain and diarrhea and was transferred to a tertiary facility. She had a CTA of the head and neck that showed possible right internal jugular venous thrombosis. A CTV showed dural venous sinus thrombosis. She was started on a heparin drip and later transitioned to Eliquis. She denies any history of pulmonary emboli or DVT. Her SITE ENGINEER shunt was checked out at [facility] And was found to be functioning well. While there she was diagnosed with urinary retention and was started on Flomax. She tells me she has had urine retention in the past and saw a urologist who told her that nothing could be done for her. She admits to sometimes having urinary incontinence and sometimes having fecal incontinence. She has chronic low back pain but no radicular pain into her legs. She was transferred to the acute inpatient rehab unit at [facility] on 06/27/2025 for 3 hours of therapy daily to restore function/independence at or near her level prior to the recent UTI and diagnosis of bilateral venous sinus thrombosis. Alert and oriented x 3 Tongue protrudes on the midline, mucous membranes are dry Lungs are clear to auscultation and she has symmetrical chest expansion. She is not tachypneic and has no conversational dyspnea Heart-regular rate and rhythm with no murmur, no gallop and no rub. She had no ectopy. The abdomen is soft, nontender to palpation and she has active bowel sounds. She denies nausea and abdominal pain. She ate 75 to 100% of her breakfast this morning. She was very sleepy this morning and difficult to stay awake. This improved later on in the day. No calf tenderness No ankle edema Urine in the Benson bag is clear and yellow. No hematuria. All lab drawn this morning was personally reviewed. I agree with the plan as outlined by the nurse practitioner.
[2025-06-28 11:56] VITALS: BMI 31.2
[2025-06-28 12:19] VITALS: BP 125/89; BP 148/87; BP 159/81; PULSE 103; PULSE 114; PULSE 138
--- NOTE | 2025-06-28 13:00 | RAD_ITS ---
PROCEDURE: ABDOMEN SINGLE VIEW 06/28/2025 REASON FOR EXAM: CONSTIPATION WITH URINE RETENTION TECHNIQUE: Procedure Code: RADABD Modality: DX Procedure: ABDOMEN SINGLE VIEW COMPARISON: 11/21/2022 KUB FINDINGS: BOWEL GAS PATTERN: Non-obstructive. Significant colonic fecal retention. FREE AIR: Not assessed on a single supine view. ORGANOMEGALY: Not seen. CALCIFICATIONS: No abnormal calcifications observed. LOWER CHEST: No acute pathology. BONES AND SOFT TISSUES: Right hip prosthesis. Lumbar fusion hardware. Shunt catheter tip in the right hemipelvis. RAD/Abdomen Single View IMPRESSION: Large volume colonic fecal burden. No evidence of bowel obstruction. Reading [facility]
--- NOTE | 2025-06-28 13:01 | REHABEVAL_ITS ---
Admission Information Primary Diagnosis:: Debility Status Changes from Prescreening?: No changes Identified Actual Problem List:: Pain, ALteration in Cmfrt, Bowel, Constipation, Mobility Impaired, Self Care Deficit, Know.Dfct/Disease Process, Know.Dfct of Medicaitons and Alteration-Leisure Activ. Potential Problem List:: DVT, Bleeding, Infection, UTI, Aspiration, Falls, Skin Integrity and Depression Risk of Complications DVT: LMWH and KASEY Hose Bleeding: Monitor Lab Values, Nursing to Teach Precautions for anti-coagulation therapy., Wound, if applicable, to be assessed every shift. and Stroke patients assessed for lethargy or change in status. Infection: Clinical Staff to Monitor for S/S of infection: and S/S of infection include fever, redness, warmth, etc. Urinary Tract Infection: Monitor for frequency, burning, discomfort, or incontinence. and Nursing will obtain urine sample for urinalysis and C&S when ordered. Aspiration: Clinical staff will monitor for coughing, drooling, congestion., Speech will evaluate swallowing and dsyphasia. and Nursing will monitor patient swallowing during meals. Falls: Patient will be evaluated for Fall Precautions and Patient will be placed on Fall Precautions as indicated per protocol. Skin Breakdown: Nursing will assess skin daily using assessment tool. and Nursing will place on Skin Breakdown Precautions as indicated. Pain: Clinical staff will assess patient's pain level per protocol., Medications will be given, if needed, and the pain level reassessed. and Other methods: Massage, distraction, decrease stimulus, etc. used PRN. Plan of Care Patient requires physician specializing in physical medicine and rehab oversight to provide close medical supervision of rehab issues including: Pain Management, Sleep Problems, Bowel and Bladder, Medical and co-morbidity Management, DVT prophylaxis, Rehabilitation Leadership and Coordination of treatment team Patient needs Physical Therapy: For a minimum of 1 hour and At least 5 out of 7 days Patient needs Physical Therapy to improve:: Mobility, Strengthening, Transfers, Stretching, ROM, Endurance, Stairs, Gait and Balance Patient needs Occupational Therapy: For a minimum of 1 hour and At least 5 out of 7 days Patient needs Occupational Therapy to improve ADL's incl.: Eating, Grooming, Bathing, Dressing, Toileting, Toilet transfers, Community Reintegration, Higher functioning activities, Household tasks, Adaptive Equipment, Splinting and Other activities as determined Patient requires speech therapy: For a minimum of 1 hour and At least 5 out of 7 days Patient requires speech therapy for: Swallowing, Cognition, Language Skills and Compensatory Strategies Patient requires 24/7 Rehabilitation Nursing for: Pain Issues, Identifying and preventing risk factors, Monitoring and reporting current medical conditions, Assisting with ambulation, transfer, and all ADL's, Teaching patients about disease process and medications, Family teaching, Providing safe environment, Bowel and Bladder Issues, Skin integrity and Medication Management Patient needs Child Care Coordinator/ Case Management for: Discharge Planning, Arranging Home Equipment or Services and Family Interventions Patient needs Dietary and Nutrition Services for: Adequate Nutrition, Nutritional Supplements and Nutritional Education Goals Goals Patient will remain: free from falls and or injury at time of discharge. Patient will perform bed mobility at: MOD I level of assist. Patient will complete transfers from bed to chair at: MOD I level of assist. Patient will ambulate: 100 feet and with LRD Patient will complete upper body dressing at: MOD I level of assist. Patient will complete lower body dressing at: MOD I level of assist. Patient will complete toilet transfer at: MOD I level of assist. Patient will complete toileting at: MOD I level of assist. Patient will perform bathing at: MOD I level of assist. Patient will perform Tub/Shower transfer at: MOD I level of assist. Patient will complete grooming at: MOD I level of assist. Patient will complete home management skills at: MOD I level of assist. Patient will achieve: at MOD I assist and - (1 curb step) Patient will have pain level of: of 3 or less Patient's skin will: remain intact Patient will receive: adequate nutrition. Discharge Planning Pt Prognosis for Sig. Practical Improv. w/in Reasonable Time: Good Estimated Length of stay (days): 14 Anticipated D/C Destination: Home Was Preadmission Assessment Accurate?: Yes
--- NOTE | 2025-06-28 13:07 | CASEMGMT ---
Social Work SW met w/pt, introduced self, role of SW in rehab. Pt's goal is to return home at discharge, open to C if needed. Pt is open to a Direction Home/AA referral also if needed. Pt does have concerns about food at home at times, SW provided resources as documented in assessment. Pt also scored a 12 on the PHQ-9, is showing some symptoms of depression. SW gave pt a list of counseling resources and explained that we can make appt for her prior to her d/c. Additionally, SW explained can be supportive to her while she is here in rehab. Pt states understanding. SW will continue to follow for discharge planning needs. JOSEPH Meza
[2025-06-28] MEDS: Budesonide 3 MG CAPSULE.EC 6 MG PO (14:41)
--- NOTE | 2025-06-28 15:03 | CHAPLAIN ---
Type of Pastoral Visit ___ Initial Visit ___ Follow-up Visit ___ On-call Visit ___ General Patient Visit ___ Spiritual Assessment ___ Family Conference ___ Bereavement ___ Rapid Response ___ Code Blue ___ Other (describe below) Pastoral Care Referral From ___ Patient ___ Family ___ Nurse ___ Physician ___ Magazine Filler ___ Head Of Partner Development ___ Other (describe below) Sacrament/Intervention ___ Active listening ___ Anointing ___ Hindu ___ Bereavement ___ Communion ___ Jen exploration ___ ___ Life review ___ Prayer ___ Reconciliation ___ Sacrament of Sick ___ Supportive presence ___ Wedding ___ Other (describe below) Pastoral Comments patient was sleeping at time of attempted visit
[2025-06-28 18:00] VITALS: BP 135/78; PULSE 92; RESP 16; TEMP 36.4; O2SAT 92
[2025-06-28] MEDS: MELATONIN 3 MG TABLET PO (19:55)
[2025-06-28 20:05] VITALS: PULSE 115; O2SAT 96
[2025-06-28 22:00] VITALS: PULSE 62; O2SAT 97
[2025-06-29 06:00] VITALS: BP 124/70; PULSE 84; RESP 17; TEMP 36.6; O2SAT 91; BMI 31.4
[2025-06-29 06:23] VITALS: O2SAT 95
[2025-06-29] MEDS: Budesonide 3 MG CAPSULE.EC 6 MG PO (07:48)
[2025-06-29] MEDS: APIXABAN 5 MG TABLET PO ×2 (07:48→19:46)
[2025-06-29] MEDS: Senna/Docusate Sodium 1 Tablet 2 TABLET PO (07:48)
--- NOTE | 2025-06-29 08:59 | PN_ITS ---
Progress Note KUB did show significant stool burden. Patient had a + stool guiac today. Will continue to monitor. Order placed to monitor hemoglobin and hematocrit and she did have an improvement from yesterday to 13.2. Pt is receiving Protonix 40mg PO bid. Hemoglobin was 12.2 yesterday and hematocrit was 37.0. She did have 2 bowel movements today. She did have some emesis with the first. She states that she consistantly vomits with bowel movements. I did order Zofran 4mg ODT q 8 hours PRN.
--- NOTE | 2025-06-29 08:59 | PCM.PN.BLA ---
Progress Note KUB did show significant stool burden yesterday. Patient had a + stool guiac. Will continue to monitor. Order placed to monitor hemoglobin and hematocrit and she did have an improvement from yesterday to 13.2 from 12.2. Pt is receiving Protonix 40mg PO bid. She did have 2 bowel movements today. She did have some emesis with the first. She now has loose stools. She did receive her Senna this morning. Will hold next dose. She states that she consistently vomits with bowel movements, normally. She currently has significant nausea. I did order Zofran 4mg ODT q 8 hours PRN. I updated nursing to hold her next dose of Senna. 12 pt review of systems is negative except as stated above. This note was generated with [facility] dictation software. It may contain incorrect words, spelling, and punctuation that were not noted in checking the note before signing. Physical Exam Const oriented x3 General Appearance: cooperative Orientation / Consciousness: awake, oriented to person, oriented to place and oriented to time HEENT HEENT Narrative: OIL WELL SERVICES SUPERVISOR shunt Eyes PERRL Neck full ROM Chest inspection of chest normal Resp normal respiratory effort, normal air movement, no retractions, no use of accessory muscles and clear to auscultation bilaterally Cardio regular rate and peripheral pulses 2+ throughout Rate: regular rate Heart Sounds: other Other Details: Abnormal beat most likely PVCs. Noted during auscultation. GI normal to inspection, nondistended, normoactive bowel sounds GI Narrative: Constipation x 2 days has resolved. She has had loose stools x 2 and now has nausea with vomiting. Auscultation: hyperactive bowel sounds Bladder / Kidney Exam: catheter in place Back/Spine General Back: other Generalized back pain by history. Extremity normal to inspection Extremity Narrative: Patient states that the edema to bilateral lower extremities chronic. It is nonpitting in nature 1+. Skin no rashes or lesions noted Neuro oriented x3 [place] Coma Scale: document GCS findings Spontaneous Obeys Commands Oriented 15 Sensorium / Orientation: awake Motor Exam: strength 5/5 throughout Psych Activity / Motor Behavior: appropriate eye contact Speech: normal speech Assessment & Plan Assessment/Plan (1) Normal pressure hydrocephalus: (2) Chronic lumbar radiculopathy: (3) Debility: (4) S/P OIL WELL SERVICES SUPERVISOR shunt: (5) Urinary retention with incomplete bladder emptying: (6) Constipation: QUALIFIERS: Constipation type: chronic idiopathic constipation Qualified Code(s): K59.04 - Chronic idiopathic constipation (7) Mild cognitive impairment: (8) Abnormality of gait and mobility: (9) Obstructive sleep apnea: (10) Dizziness: PLAN: Plan *Continue therapies PT/OT/ST *VS per protocol *fall precautions *O2 per protocol *IS 10 times per hour while awake * I and O per protocol *Cath Care for indwelling benson cath present on admission *overnight trending pulse ox realated to [facility] *Orthostatic vital signs realted to dizziness with standing *KUB to rule out acute reason for constipation *regular diet *Tylenol 650mg PO q 6 hours *Eliquis 5 mg PO bid *Lipitor 10mg QHS *Dulcolax 10mg RC x 1 PRN *CYmbalta 30mg PO daily *MOM 30ml PO x 1 PRN *Antivert 12.5mg PO daily *Melatonin 3 mg PO qHS *Protonix 40mg PO daily *Senna/Docusate 2 tabs PO daily *Flomax 0.4mg PO daily at 1700 *Budesonide 6mg PO dialy * Repeat H & H *Zofran 4mg OTD q 8 hours PRN Visit Charges Inpatient E&M: 87442 Subs Hosp L2
[2025-06-29 10:38] LABS: Hematocrit 40.9 % (37-47); Hemoglobin 13.2 g/dL (12.0-15.0)
[2025-06-29 16:07] VITALS: BP 103/70; PULSE 84; RESP 18; TEMP 36.9; O2SAT 95
[2025-06-29 19:30] VITALS: PULSE 84; RESP 18; O2SAT 95
[2025-06-29] MEDS: MELATONIN 3 MG TABLET PO (19:46)
[2025-06-29 22:15] VITALS: PULSE 84; O2SAT 94
[2025-06-30 05:30] VITALS: BP 107/58; PULSE 75; RESP 16; TEMP 36.4; O2SAT 92
--- NOTE | 2025-06-30 07:34 | PN_ITS ---
Subjective Subjective Brayan was seen on team rounds today. Her son Ramón participated by phone. Afebrile VSS - Maintaining appropriate oxygen saturation on RA Oral intake - FOOD good FLUIDS good yesterday. Discussed with nursing - no problems that need addressed Reviewed the THERAPY notes -scored a 28 out of a possible 50 on the BCAT and scored 14 out of a possible 30 on the cog log today. Medication list reviewed. KUB showed a large fecal burden in the colon. She had 2 loose bowel movements yesterday. All lab from yesterday was personally reviewed. Hemoglobin was 13.2 which is stable. I reviewed the results of the overnight trending pulse ox. Brayan denies cephalgia, lightheadedness, difficulty swallowing, chest pain, shortness of breath, palpitations, nausea/vomiting/abdominal pain, dysuria and calf pain. She is more alert than she was 2 days ago however she still is tired and nods off to sleep during the day. Objective Data Objective Data Vital Signs: Vital Signs Temp Pulse Resp BP Pulse Ox O2 Del Method FiO2 97.6 F L 75 16 107/58 L 92 Room Air 21 06/30/25 05:30 06/30/25 05:30 06/30/25 05:30 06/30/25 05:30 06/30/25 05:30 06/30/25 07:00 06/29/25 22:15 Oxygen Delivery Method Room Air Weight: 177 lb 7.554 oz Body Mass Index (BMI) 31.4 Intake & Output: Intake and Output for Last 24 Hours 06/28/25 06/29/25 06/30/25 23:59 23:59 23:59 Intake Total 900 / 900 1520 / 1520 250 / 250 Output Total 675 / 675 1475 / 1475 175 / 175 Balance 225 / 225 45 / 45 75 / 75 Lab / Micro Data 06/29/25 10:24 06/28/25 05:32 Labs: Laboratory Results - last 24 hr 06/29/25 10:24: Hgb 13.2, Hct 40.9 Micro: Microbiology 06/29/25 08:20 Stool Stool Occult Blood (CHRISTOPHER) - Final Occult Blood Positive Physical Exam Const alert and oriented x3 Constitutional Narrative: Very pleasant and talkative. Does not appear to be in any distress or pain. Makes good eye contact with me and is appropriate. Easily distracted and has trouble focusing and concentrating. Resp clear to auscultation bilaterally Resp Narrative: No conversational dyspnea. Effort and Inspection: Negative for tachypneic Cardio regular rate, regular rhythm, no murmurs, no rub and no gallops GI normal to inspection, nondistended, normoactive bowel sounds Extremity no calf tenderness General Extremity: Negative for edema Skin General Skin Exam: no breakdown Rashes: no rashes Assessment & Plan Assessment/Plan (1) Debility: (2) Cerebral venous sinus thrombosis: (3) Chronic anticoagulation: (4) Normal pressure hydrocephalus: PLAN: With history of dementia (5) S/P HYDRAULIC SPECIALIST shunt: (6) Urinary retention with incomplete bladder emptying: PLAN: Etiology? (7) Mild cognitive impairment: PLAN: She scored only 28 out of a possible 50 on the BCAT which is consistent with significant cognitive dysfunction. She is known to have dementia likely related to the normal pressure hydrocephalus but will reportedly had mild cognitive impairment. This is likely been exacerbated by the bilateral venous sinus thrombosis. (8) Abnormality of gait and mobility: (9) Chronic lumbar radiculopathy: PLAN: Denies radicular pain to me but states she has chronic low back pain. (10) Obstructive sleep apnea: PLAN: Has never been treated for sleep apnea and had a negative sleep study in 2002. Overnight trending pulse ox is abnormal. (11) History of IBS: PLAN: Alternating diarrhea and constipation. (12) Collagenous colitis: PLAN: Noncompliant with budesonide. (13) Anxiety and depression: (14) BPPV (benign paroxysmal positional vertigo): QUALIFIERS: Laterality: unspecified laterality Qualified Code(s): H81.10 - Benign paroxysmal vertigo, unspecified ear (15) Heme + stool: PLAN: Hemoglobin is stable. PLAN: Plan 1. Continue therapy 2. Continue Eliquis 3. Continue pantoprazole 40 mg twice daily........ suspect that the heme positive stool is due to hemorrhoidal bleeding. Nursing reported the stool was tinged with blood. 4. Abnormal overnight trending pulse ox. 1. Do you snore loudly? No 2. Do you often feel tired, fatigued or sleepy during the day? Yes 3. Has anyone ever observed you stop breathing during sleep? No 4. Do you have (or are you being treated for) HTN? No BMI 31.4 AGE 79 Neck circumference 39 cm Gender female Total 2 Charges/Coding Visit Charges Inpatient E&M: 27740 Subs Hosp L2
[2025-06-30] MEDS: Budesonide 3 MG CAPSULE.EC 6 MG PO (08:10)
[2025-06-30] MEDS: APIXABAN 5 MG TABLET PO ×2 (08:11→19:46)
--- NOTE | 2025-06-30 12:50 | CASEMGMT ---
Social Work IDT met with patient at bedside and son participated via conference call for Team meeting. Discussed patient's progress in PT/OT/ST/SN/MD/BONING ROOM WORKER. Educated to [facility] insurance and there are no updates required from insurance. IDT and pt/family to set DC date when pt no longer meets criteria for IRU admission. SW to assist with DC Planning. Pt currently needs extensive assist and notable cognitive impairment. Will continue to treat and IDT to provide DC recommendations as pt progresses. Dr recommending sleep study at DC and will need overnight O2 at DC. Will ReTeam weekly. Dipika Wilhelm FERRYBOAT HELPER MILL SET UP
--- NOTE | 2025-06-30 14:57 | NURSING ---
Neck measurement 39 cm
[2025-06-30 17:59] VITALS: BP 104/61; PULSE 76; RESP 16; TEMP 36.5; O2SAT 95
[2025-06-30 19:45] VITALS: PULSE 76; RESP 16
[2025-06-30] MEDS: Senna/Docusate Sodium 1 Tablet 2 TABLET PO (19:45)
[2025-06-30] MEDS: MELATONIN 3 MG TABLET PO (19:46)
--- NOTE | 2025-07-01 04:43 | NURSING ---
1946 when completing catheter care it was noted that pts benson had fallen out, pt state that she thought that she had felt something wet on her leg earlier. text sent to the doctor to let her know that it had fallen out and if she wanted it reinserted. doctor texted back to leave out benson and do 3 pvrs. pt had to 2 pvrs completed and the second one showed a value of 252; it had been 8 hours since the benson had fallen out and pt had yet to void. pt was straight cathed for 300cc of clear yellow urine and tolerated it well. communication left for doctor this am for the above charting of pt needing straight cathed this am
[2025-07-01 05:00] VITALS: BP 112/73; PULSE 104; RESP 18; TEMP 37.1; O2SAT 95
[2025-07-01] MEDS: Budesonide 3 MG CAPSULE.EC 6 MG PO (08:02)
[2025-07-01] MEDS: Senna/Docusate Sodium 1 Tablet 2 TABLET PO ×2 (08:02→19:57)
[2025-07-01] MEDS: APIXABAN 5 MG TABLET PO ×2 (08:03→19:57)
[2025-07-01 08:49] VITALS: BP 109/62; PULSE 87
--- NOTE | 2025-07-01 13:28 | PCM.PROGNOTE ---
Subjective Subjective Afebrile VSS - Maintaining appropriate oxygen saturation on RA Oral intake - FOOD mostly good FLUIDS good Discussed with nursing -Damon came out last night. Nursing found it lying in the bed. She is not able to void at all and Damon was reinserted. Reviewed the THERAPY notes Medication list reviewed. Brayan tells me that she used to straight cath but, she got tired of doing it and quit some time ago. She denies cephalgia, lightheadedness, chest pain, shortness of breath, abdominal pain, nausea/vomiting, calf pain. She tells me she feels depressed about having to have a Damon catheter. She has seen Dr. Dave in the past but lost contact. Will refer her to Dr. Dave again at discharge. Cognitive dysfunction would not allow Brayan to resume straight cath safely. Objective Data Objective Data Vital Signs: Vital Signs Temp Pulse Resp BP Pulse Ox O2 Del Method FiO2 98.7 F 87 18 109/62 95 Room Air 21 07/01/25 05:00 07/01/25 08:49 07/01/25 05:00 07/01/25 08:49 07/01/25 05:00 07/01/25 05:00 06/29/25 22:15 Oxygen Delivery Method Room Air Weight: 177 lb 7.554 oz Body Mass Index (BMI) 31.4 Intake & Output: Intake and Output for Last 24 Hours 06/29/25 06/30/25 07/01/25 23:59 23:59 23:59 Intake Total 1520 / 1520 1330 / 1330 840 / 840 Output Total 1475 / 1475 725 / 725 300 / 300 Balance 45 / 45 605 / 605 540 / 540 Lab / Micro Data 06/29/25 10:24 06/28/25 05:32 Micro: Microbiology 06/29/25 08:20 Stool Stool Occult Blood (CHRISTOPHER) - Final Occult Blood Positive Physical Exam Const alert and oriented x3 Constitutional Narrative: She is oriented to person, place, month, year but higher executive function is severely impaired. She has poor judgment. Poor safety awareness and is distracted very easily. She is redirectable and she is able to follow commands. General Appearance: cooperative Resp clear to auscultation bilaterally Resp Narrative: No conversational dyspnea. Effort and Inspection: Negative for tachypneic Cardio regular rate, regular rhythm, no murmurs and no gallops GI normal to inspection, nondistended, normoactive bowel sounds Extremity no calf tenderness General Extremity: Negative for edema Skin General Skin Exam: no breakdown Rashes: no rashes Psych cooperative Psych Narrative: She is pleasant and makes good eye contact with me when we are talking. He is engaged in our conversation. She is sleeping well at night. She is alert and awake more during the day now. Assessment & Plan Assessment/Plan (1) Debility: (2) Cerebral venous sinus thrombosis: (3) Chronic anticoagulation: (4) Normal pressure hydrocephalus: PLAN: With history of dementia. (5) S/P CLARIFIER OPERATOR HELPER shunt: (6) Urinary retention with incomplete bladder emptying: PLAN: neurogenic likely. Has seen Dr. Dave in the past. (7) Mild cognitive impairment: PLAN: She scored only 28 out of a possible 50 on the BCAT which is consistent with significant cognitive dysfunction. She is known to have dementia likely related to the normal pressure hydrocephalus but will reportedly had mild cognitive impairment. This is likely been exacerbated by the bilateral venous sinus thrombosis. (8) Abnormality of gait and mobility: (9) Chronic lumbar radiculopathy: PLAN: Denies radicular pain to me but states she has chronic low back pain. (10) Obstructive sleep apnea: PLAN: Has never been treated for sleep apnea and had a negative sleep study in 2002. Overnight trending pulse ox is abnormal. (11) History of IBS: PLAN: Alternating diarrhea and constipation. (12) Collagenous colitis: PLAN: Noncompliant with budesonide. (13) Anxiety and depression: (14) BPPV (benign paroxysmal positional vertigo): QUALIFIERS: Laterality: unspecified laterality Qualified Code(s): H81.10 - Benign paroxysmal vertigo, unspecified ear (15) Heme + stool: PLAN: Hemoglobin is stable. PLAN: Plan 1. Continue therapy 2. Damon was reinserted. She will follow-up with Dr. Dave postdischarge 3. DC Flomax-she has neurogenic bladder and this will not help. 4. Recheck a CBC and BMP on Friday. 5. GI cocktail with prune juice, orange juice and milk of mag today. She has hacd some BM's but, she was full of stool and nothing of real significance yet. Charges/Coding Visit Charges Inpatient E&M: 32489 Subs Hosp L1
--- NOTE | 2025-07-01 15:50 | CHAPLAIN ---
Type of Pastoral Visit _x__ Initial Visit ___ Follow-up Visit ___ On-call Visit ___ General Patient Visit ___ Spiritual Assessment ___ Family Conference ___ Bereavement ___ Rapid Response ___ Code Blue ___ Other (describe below) Pastoral Care Referral From _x__ Patient ___ Family ___ Nurse ___ Physician ___ Bryologist ___ Customer Care Coordinator ___ Other (describe below) Sacrament/Intervention _x__ Active listening ___ Anointing ___ Rastafari ___ Bereavement ___ Communion _x__ Jen exploration ___ _x__ Life review _x__ Prayer ___ Reconciliation ___ Sacrament of Sick _x__ Supportive presence ___ Wedding ___ Other (describe below) Pastoral Comments
[2025-07-01 16:53] VITALS: BP 120/63; PULSE 85; RESP 16; TEMP 36.8; O2SAT 100
[2025-07-01 19:40] VITALS: PULSE 85; RESP 16; O2SAT 100
[2025-07-01] MEDS: MELATONIN 3 MG TABLET PO (19:57)
[2025-07-02 05:17] VITALS: BP 129/82; PULSE 69; TEMP 36.2; O2SAT 95
[2025-07-02] MEDS: APIXABAN 5 MG TABLET PO ×2 (08:01→20:39)
[2025-07-02] MEDS: Senna/Docusate Sodium 1 Tablet 2 TABLET PO ×2 (08:01→20:39)
[2025-07-02] MEDS: Budesonide 3 MG CAPSULE.EC 6 MG PO (08:02)
[2025-07-02] MEDS: Polyethylene Glycol 3350 17 GM PACKET PO (08:02)
[2025-07-02 18:00] VITALS: BP 123/76; PULSE 74; RESP 18; TEMP 36.6; O2SAT 98
[2025-07-02] MEDS: MELATONIN 3 MG TABLET PO (20:39)
[2025-07-03 04:34] VITALS: BP 120/67; PULSE 69; RESP 18; TEMP 36.7; O2SAT 91
[2025-07-03] MEDS: Polyethylene Glycol 3350 17 GM PACKET PO (08:48)
[2025-07-03] MEDS: APIXABAN 5 MG TABLET PO ×2 (08:49→20:02)
[2025-07-03] MEDS: Budesonide 3 MG CAPSULE.EC 6 MG PO (08:49)
[2025-07-03] MEDS: Senna/Docusate Sodium 1 Tablet 2 TABLET PO ×2 (08:49→20:02)
[2025-07-03 17:25] VITALS: BP 128/72; PULSE 82; RESP 17; TEMP 37.1; O2SAT 95
[2025-07-03] MEDS: MELATONIN 3 MG TABLET PO (20:02)
[2025-07-04 00:05] VITALS: PULSE 71; O2SAT 97
[2025-07-04 05:46] LABS: Hematocrit 36.3 % (37-47); Hemoglobin 11.9 g/dL (12.0-15.0); Mean Corp Hgb Conc 32.8 g/dL (32-36); Mean Corpuscular Volume 87.7 fL (81-99); Mean Platelet Vol. 9.9 fl (6.2-12.0); Platelet Count 258 K/mm3 (150-450); RBC Distribution Width CV 14.8 % (11.6-14.6); RBC Distribution Width SD 47.4 fl (35.1-43.9); Red Blood Count 4.14 M/mm3 (4.2-5.4); White Blood Count 5.3 K/mm3 (4.4-11.0)
[2025-07-04 06:00] VITALS: BP 117/71; PULSE 68; RESP 16; TEMP 36.9; O2SAT 95
[2025-07-04 06:18] LABS: Anion Gap 9 (5-15); BUN 11 mg/dL (4-19); BUN/Creat Ratio 13.3 RATIO (10-20); Calcium,Total 8.9 mg/dL (7.6-11.0); Carbon Dioxide 23.5 mmol/L (21.0-32.0); Chloride 106 mmol/L (98-108); Estimated Creatinine Clearance 52.77 ml/min (50-250); Glucose 109 mg/dL (70-99); Potassium 3.7 mmol/L (3.3-5.1)
--- NOTE | 2025-07-04 07:32 | PCM.PROGNOTE ---
Subjective Subjective Afebrile VSS - Maintaining appropriate oxygen saturation on RA Oral intake - FOOD adequate/variable FLUIDS poor yesterday Multiple bowel movements over the weekend. Discussed with nursing -complained of right ear pain last evening but states it is better today. Slept well last night. Reviewed the THERAPY notes -progress was discussed with therapist on rounds today. She is still requiring significant physical assistance. She will need assistance with medications. Judgment is poor and she is unaware of her deficits. Medication list reviewed. All labs from today was personally reviewed. White blood cell count is normal at 5.3. Hemoglobin is 11.9 which is down from 12.2 on 06/28/2025. Has tested Hemoccult positive. She is on pantoprazole 40 mg twice daily. Has a known history of microscopic colitis. She is on Eliquis. Platelets are within normal limits. Sodium is 138 and the potassium is 3.7. BUN is 11 with a creatinine of 0.84 which is within her baseline. Calcium is normal. Tuula denies lightheadedness, cephalgia, chest pain, shortness of breath, cough, heartburn, nausea/vomiting, abdominal pain, dysuria and calf pain. She complains that she has poor appetite but since Friday morning she is eaten 75 to 100% of all meals except for supper yesterday. Objective Data Objective Data Vital Signs: Vital Signs Temp Pulse Resp BP Pulse Ox O2 Del Method O2 Flow Rate 98.4 F 68 16 117/71 95 Nasal Cannula 2 07/04/25 06:00 07/04/25 06:00 07/04/25 06:00 07/04/25 06:00 07/04/25 06:00 07/04/25 06:00 07/04/25 06:00 FiO2 21 06/29/25 22:15 Oxygen Flow Rate (L/min) 2 Oxygen Delivery Method Nasal Cannula Weight: 177 lb 7.554 oz Body Mass Index (BMI) 31.4 Intake & Output: Intake and Output for Last 24 Hours 07/02/25 07/03/25 07/04/25 23:59 23:59 23:59 Intake Total 1390 / 1390 970 / 970 200 / 200 Output Total 1600 / 1600 950 / 950 150 / 150 Balance -210 / -210 20 / 20 50 / 50 Lab / Micro Data 07/04/25 05:26 07/04/25 05:26 Labs: Laboratory Results - last 24 hr 07/04/25 05:26: WBC 5.3, RBC 4.14 L, Hgb 11.9 L, Hct 36.3 L, MCV 87.7, MCH 28.7, MCHC 32.8, RDW Std Deviation 47.4 H, RDW Coeff of Gareth 14.8 H, Plt Count 258, MPV 9.9, Sodium 138, Potassium 3.7, Chloride 106, Carbon Dioxide 23.5, Anion Gap 9, BUN 11, Creatinine 0.84, Estim Creat Clear Calc 52.77, Est GFR (MDRD) Non-Af 70, BUN/Creatinine Ratio 13.3, Glucose 109 H, Calcium 8.9 Micro: Microbiology 06/29/25 08:20 Stool Stool Occult Blood (CHRISTOPHER) - Final Occult Blood Positive Physical Exam Const alert, oriented x3 and no apparent distress Constitutional Narrative: Poor judgment, poor safety awareness, easily distracted. General Appearance: cooperative Resp clear to auscultation bilaterally Resp Narrative: No conversational dyspnea. Effort and Inspection: Negative for tachypneic Cardio regular rate, regular rhythm, no murmurs and no gallops Cardio Narrative: No ectopy. GI normal to inspection, nondistended, normoactive bowel sounds GI Narrative: No guarding with palpation. KUB today shows no excessive stool burden....... it is much improved over last week. Inspection: Negative for abdominal distention Extremity no calf tenderness General Extremity: Negative for edema Skin General Skin Exam: no breakdown Rashes: no rashes Psych cooperative Psych Narrative: She is pleasant and makes good eye contact with me when we are talking. He is engaged in our conversation. She is sleeping well at night. She is alert and awake more during the day now. Assessment & Plan Assessment/Plan (1) Debility: (2) Cerebral venous sinus thrombosis: (3) Chronic anticoagulation: (4) Normal pressure hydrocephalus: (5) S/P TECHNICAL SUPPORT COORDINATOR shunt: (6) Urinary retention with incomplete bladder emptying: (7) Mild cognitive impairment: (8) Abnormality of gait and mobility: (9) Chronic lumbar radiculopathy: (10) Obstructive sleep apnea: (11) History of IBS: (12) Collagenous colitis: (13) Anxiety and depression: (14) BPPV (benign paroxysmal positional vertigo): QUALIFIERS: Laterality: unspecified laterality Qualified Code(s): H81.10 - Benign paroxysmal vertigo, unspecified ear PLAN: Denies vertigo. (15) Heme + stool: PLAN: Hemoglobin is stable. PLAN: Plan 1. Continue therapy 2. Decrease senna to 1 tablet twice daily and continue polyethylene glycol once daily. 3. Check a KUB today 4. Continue budesonide Charges/Coding Visit Charges Inpatient E&M: 22918 Subs Hosp L1
--- NOTE | 2025-07-04 07:55 | RAD_ITS ---
PROCEDURE: ABDOMEN SINGLE VIEW 07/04/2025 REASON FOR EXAM: ABDOMINAL PAIN TECHNIQUE: Procedure Code: RADABD Modality: DX Procedure: Two-view supine abdomen COMPARISON: Abdomen study of 06/28/2025. RAD/Abdomen Single View IMPRESSION: Partially visualized right hip prosthesis, partially visualized ventriculoperit rodriguez shunt, and prior lumbar surgery again noted. No excess stool burden is seen. No bowel-gas pattern abnormality is identified. No mass or mass effect is seen. No interval osseous change is seen. Reading Location: [place] [address]
[2025-07-04] MEDS: Budesonide 3 MG CAPSULE.EC 6 MG PO (09:00)
[2025-07-04] MEDS: Polyethylene Glycol 3350 17 GM PACKET PO (09:01)
[2025-07-04] MEDS: APIXABAN 5 MG TABLET PO ×2 (09:01→21:19)
[2025-07-04] MEDS: Senna/Docusate Sodium 1 Tablet PO ×2 (09:01→21:19)
[2025-07-04 17:35] VITALS: BP 124/73; PULSE 76; RESP 16; TEMP 37.2; O2SAT 99
[2025-07-04 21:00] VITALS: BP 135/76; PULSE 72; RESP 16; TEMP 36.3; O2SAT 95
[2025-07-04] MEDS: MELATONIN 3 MG TABLET PO (21:18)
[2025-07-05 06:00] VITALS: BP 127/71; PULSE 66; RESP 16; TEMP 37.1; O2SAT 94; BMI 31.0
[2025-07-05] MEDS: Senna/Docusate Sodium 1 Tablet PO (08:21)
[2025-07-05] MEDS: APIXABAN 5 MG TABLET PO ×2 (08:21→20:51)
[2025-07-05] MEDS: Budesonide 3 MG CAPSULE.EC 6 MG PO (08:21)
--- NOTE | 2025-07-05 09:23 | PCM.PROGNOTE ---
Subjective Subjective Afebrile Vital signs are stable and the blood pressure is well-controlled. Heart rate is within normal limits. Maintains an appropriate oxygen saturation on room air while awake but is wearing 2 L of nasal O2 at night due to an abnormal overnight trending pulse ox. Poor fluid intake the past couple days Generally eats 75 to 100% of breakfast and lunch but a smaller supper. Had multiple bowel movements on Friday but had none yesterday and none yet today. KUB yesterday shows that the severe constipation has resolved. All lab from today was personally reviewed. Hemoglobin today is 11.9 which is down from 13.2 on 06/29/2025. On 06/28/2025 it was 12.2. MCV and MCH are normal and the RDW is mildly elevated. Hemoccult stool was positive on 06/29/2025 and she is on a PPI. She has known microscopic colitis. Sodium today is 138 and the potassium is 3.7. The BUN is 11, down from 14 on 06/28/2025. Creatinine is 0.84 which is within her baseline. Estimated creatinine clearance is 52.77 and the GFR is 70. Calcium is normal. Speech therapy administered a BCAT again today and her score improved to 37 from 28 at admission. The speech therapist felt that Brayan was depressed today and I felt the same way yesterday. She wants to go home. She admits to feeling depressed. She is worried about her being alone and he calls her and asks her to come home. Brayan denies lightheadedness, cephalgia, chest pain, shortness of breath, nausea/vomiting/abdominal pain, dysuria and calf tenderness. Yesterday with therapy she was able to do multiple sit to stands at contact-guard assist with no loss of balance. She ambulated a total of 320 feet yesterday using a wheeled walker with contact-guard assist. Her gait was steady with by lateral upper extremity support. She had no loss of balance. She does tend to let the walker get too far in front of her and she has a forward lean. She is supervision/set up for eating and grooming. She requires minimal assistance with bathing. Still requiring moderate assistance with upper and lower body dressing. She is min assist for toilet transfer but max assist with toileting. She has a lift chair at home and she has a stair lift as well. She and her Richard live alone. Not confident that Richard would be able to give her the physical assistance she is currently needing. May need senior care. Objective Data Objective Data Vital Signs: Vital Signs Temp Pulse Resp BP Pulse Ox O2 Del Method O2 Flow Rate 98.8 F 66 16 127/71 H 94 Room Air 2 07/05/25 06:00 07/05/25 06:00 07/05/25 06:00 07/05/25 06:00 07/05/25 06:00 07/05/25 06:00 07/04/25 06:00 FiO2 21 06/29/25 22:15 Oxygen Flow Rate (L/min) 2 Oxygen Delivery Method Room Air Weight: 177 lb 7.554 oz Body Mass Index (BMI) 31.4 Intake & Output: Intake and Output for Last 24 Hours 07/03/25 07/04/25 07/05/25 23:59 23:59 23:59 Intake Total 970 / 970 920 / 920 320 / 320 Output Total 950 / 950 400 / 400 625 / 625 Balance 520 / 520 -305 / -305 Lab / Micro Data 07/04/25 05:26 07/04/25 05:26 Micro: Microbiology 06/29/25 08:20 Stool Stool Occult Blood (CHRISTOPHER) - Final Occult Blood Positive Physical Exam Const alert Constitutional Narrative: Affect is a little flat she admits to being depressed. She is sleeping well at night and she makes good eye contact with me when we are speaking. She is engaged in the conversation and she is appropriate. Resp clear to auscultation bilaterally Resp Narrative: No conversational dyspnea. Effort and Inspection: Negative for tachypneic Cardio regular rate, regular rhythm, no murmurs and no gallops Cardio Narrative: No ectopy. GI normal to inspection, nondistended, normoactive bowel sounds Extremity no calf tenderness General Extremity: Negative for edema Skin General Skin Exam: no breakdown Rashes: no rashes Psych cooperative Psych Narrative: Affect is more flat today. She is feeling discouraged and wants to go home. She is worried about her being home alone and he calls her frequently and asks her to come home. Assessment & Plan Assessment/Plan (1) Debility: (2) Cerebral venous sinus thrombosis: (3) Chronic anticoagulation: PLAN: On Eliquis (4) Normal pressure hydrocephalus: (5) S/P GROUP RESERVATIONS COORDINATOR shunt: (6) Urinary retention with incomplete bladder emptying: PLAN: Failed voiding trial on Flomax so Flomax was discontinued. Will have her follow-up with Dr. Dave. Brayan was previously doing straight caths at home but she quit this sometime ago and this likely caused the urosepsis that led to hospital admission recently. (7) Mild cognitive impairment: PLAN: Exacerbated by bilateral venous sinus thrombosis. (8) Abnormality of gait and mobility: (9) Chronic lumbar radiculopathy: (10) Obstructive sleep apnea: PLAN: Abnormal overnight trending pulse ox. Will need a sleep study when we have a discharge date. (11) History of IBS: (12) Collagenous colitis: PLAN: She was not taking her budesonide at home. She has been on budesonide since admission to rehab and she denies nausea/vomiting/abdominal pain. She was severely constipated but this has resolved with laxatives. Will continue stool softeners (13) Anxiety and depression: PLAN: Depression is chronic and she has been taking 30 mg of duloxetine. She has had an exacerbation secondary to hospital admission and now admission to rehab and possible admission to senior care postdischarge from rehab. Duloxetine is being increased to 60 mg daily (14) BPPV (benign paroxysmal positional vertigo): QUALIFIERS: Laterality: unspecified laterality Qualified Code(s): H81.10 - Benign paroxysmal vertigo, unspecified ear PLAN: Has had no vertigo since she is on rehab. (15) Heme + stool: PLAN: Hemoglobin is stable. PLAN: Plan 1. Continue therapy 2. Increase duloxetine to 60 mg daily and give an extra 30 mg x 1 today. 3. May need senior care at discharge. Will discuss with the transition social worker. Charges/Coding Visit Charges Inpatient E&M: 29226 Subs Hosp L1
[2025-07-05 17:10] VITALS: BP 110/65; PULSE 82; RESP 18; TEMP 36.8; O2SAT 100
[2025-07-05] MEDS: MELATONIN 3 MG TABLET PO (20:51)
[2025-07-06 02:09] VITALS: O2SAT 98
[2025-07-06 05:41] VITALS: BMI 31.1
[2025-07-06 05:46] VITALS: BP 126/77; PULSE 71; RESP 17; TEMP 36.3; O2SAT 96
[2025-07-06] MEDS: Budesonide 3 MG CAPSULE.EC 6 MG PO (07:59)
[2025-07-06] MEDS: APIXABAN 5 MG TABLET PO ×2 (07:59→20:26)
--- NOTE | 2025-07-06 09:04 | PCM.PROGNOTE ---
Documented by User: JASMIN Kahn 07/06/25 09:31 Subjective Subjective Afebrile Vital signs are stable and the blood pressure is well-controlled. Heart rate is within normal limits. Maintains an appropriate oxygen saturation on room air while awake but is wearing 2 L of nasal O2 at night. Will require Although pt has had a slight improvement in her fluid intake of 950ml in the last 24 hours, it continues to be poor. Nutritional intake is good. Pt had a BM yesterday. No new labs today. Brayan's only questions today was when am I going home.? I did explain that we are continueing to assess her progression and that she is doing well but we do not want to discharge her too soon and have her fail. She stated understanding. Pt. denies lightheadedness, cephalgia, chest pain, shortness of breath, nausea/vomiting/abdominal pain, dysuria and calf tenderness. Benson cath is in place and pt has no complaints about it. She was ambulating well with OT in the [place] with a walker. She did acknowledge that she needs to get an appointment with the hearing specialists as she feels her hearing aides need adjusting. 12 point ROS is negative except as indicated above. This note was generated with [employer] dictation software. It may contain incorrect words, spelling, and punctuation that were not noted in checking the note before signing. Objective Data Objective Data Vital Signs: Vital Signs Temp Pulse Resp BP Pulse Ox O2 Del Method O2 Flow Rate 97.3 F L 71 17 126/77 H 96 Nasal Cannula 2 07/06/25 05:46 07/06/25 05:46 07/06/25 05:46 07/06/25 05:46 07/06/25 05:46 07/06/25 07:35 07/06/25 07:35 FiO2 21 06/29/25 22:15 Oxygen Flow Rate (L/min) 2 Oxygen Delivery Method Nasal Cannula Weight: 175 lb 14.862 oz Body Mass Index (BMI) 31.1 Intake & Output: Intake and Output for Last 24 Hours 07/04/25 07/05/25 07/06/25 23:59 23:59 23:59 Intake Total 920 / 920 1270 / 1270 120 / 120 Output Total 400 / 400 1275 / 1275 400 / 400 Balance 520 / 520 -5 / -5 -280 / -280 Lab / Micro Data Attestation: I reviewed the patient's lab results. Lab results narrative: from 07/04/25 07/04/25 05:26 07/04/25 05:26 Micro: Microbiology 06/29/25 08:20 Stool Stool Occult Blood (CHRISTOPHER) - Final Occult Blood Positive Physical Exam Const oriented x3 Constitutional Narrative: she is appropriate during conversational speech. General Appearance: cooperative Orientation / Consciousness: awake, oriented to person, oriented to place and oriented to time HEENT HEENT Narrative: shunt Eyes PERRL Neck full ROM Chest inspection of chest normal Resp normal respiratory effort, normal air movement, no retractions, no use of accessory muscles and clear to auscultation bilaterally Resp Narrative: No conversational dyspnea. Effort and Inspection: Negative for tachypneic Cardio regular rate and peripheral pulses 2+ throughout Cardio Narrative: No ectopy. Rate: regular rate Heart Sounds: other Other Details: Abnormal beat most likely PVCs. Noted during auscultation. GI normal to inspection, nondistended, normoactive bowel sounds GI Narrative: Denies nausea today Bladder / Kidney Exam: catheter in place Back/Spine General Back: other Generalized back pain by history. Extremity normal to inspection Extremity Narrative: Patient states that the edema to bilateral lower extremities chronic. It is nonpitting in nature 1+. General Extremity: Negative for edema Skin no rashes or lesions noted General Skin Exam: no breakdown Rashes: no rashes Neuro oriented x3 Nena Coma Scale: document GCS findings Spontaneous Obeys Commands Oriented 15 Sensorium / Orientation: awake Motor Exam: strength 5/5 throughout Psych cooperative Psych Narrative: Flat affect. Worried about . Activity / Motor Behavior: appropriate eye contact Speech: normal speech Mood & Affect: anxious and flat affect Assessment & Plan Assessment/Plan (1) Normal pressure hydrocephalus: (2) Chronic lumbar radiculopathy: (3) Debility: (4) S/P SIEBEL ADMINISTRATOR shunt: (5) Urinary retention with incomplete bladder emptying: (6) Constipation: QUALIFIERS: Constipation type: chronic idiopathic constipation Qualified Code(s): K59.04 - Chronic idiopathic constipation (7) Mild cognitive impairment: (8) Abnormality of gait and mobility: (9) Obstructive sleep apnea: PLAN: Abnormal overnight trending pulse ox. Will need a sleep study when we have a discharge date. (10) Dizziness: (11) Cerebral venous sinus thrombosis: (12) Chronic anticoagulation: PLAN: On Eliquis (13) History of IBS: (14) Collagenous colitis: PLAN: She was not taking her budesonide at home. She has been on budesonide since admission to rehab and she denies nausea/vomiting/abdominal pain. Constipation is resolving. Will continue stool softeners (15) Anxiety and depression: PLAN: Depression is chronic and she has been taking 30 mg of duloxetine. She has had an exacerbation secondary to hospital admission and now admission to rehab and possible admission to custodial postdischarge from rehab. Duloxetine has been increased to 60 mg daily (16) BPPV (benign paroxysmal positional vertigo): QUALIFIERS: Laterality: unspecified laterality Qualified Code(s): H81.10 - Benign paroxysmal vertigo, unspecified ear PLAN: Has had no vertigo since she is on rehab. (17) Heme + stool: PLAN: Hemoglobin is stable. PLAN: Plan *Continue therapies PT/OT/ST *VS per protocol *fall precautions *O2 per protocol *IS 10 times per hour while awake * I and O per protocol *Cath Care for indwelling benson cath present on admission *regular diet *Tylenol 650mg PO q 6 hours *Eliquis 5 mg PO bid *Lipitor 10mg QHS *Dulcolax 10mg RC x 1 PRN *CYmbalta 60mg PO daily *MOM 30ml PO x 1 PRN *Antivert 12.5mg PO daily *Melatonin 3 mg PO qHS *Protonix 40mg PO daily *Senna/Docusate 2 tabs PO daily *Flomax 0.4mg PO daily at 1700 *Budesonide 6mg PO dialy * Repeat H & H *Zofran 4mg OTD q 8 hours PRN Charges/Coding Visit Charges Inpatient E&M: 19793 Subs Hosp L1 Documented by User: Dr. Montserrat Lyles DO 07/08/25 11:41 Objective Data Lab / Micro Data 07/04/25 05:26 07/04/25 05:26 Physical Exam Neuro Nena Coma Scale: document GCS findings 15 Assessment & Plan Assessment/Plan (1) Normal pressure hydrocephalus: (2) Chronic lumbar radiculopathy: (3) Debility: (4) S/P SIEBEL ADMINISTRATOR shunt: (5) Urinary retention with incomplete bladder emptying: (6) Constipation: QUALIFIERS: Constipation type: chronic idiopathic constipation Qualified Code(s): K59.04 - Chronic idiopathic constipation (7) Mild cognitive impairment: (8) Abnormality of gait and mobility: (9) Obstructive sleep apnea: (10) Dizziness: (11) Cerebral venous sinus thrombosis: (12) Chronic anticoagulation: (13) History of IBS: (14) Collagenous colitis: (15) Anxiety and depression: (16) BPPV (benign paroxysmal positional vertigo): QUALIFIERS: Laterality: unspecified laterality Qualified Code(s): H81.10 - Benign paroxysmal vertigo, unspecified ear (17) Heme + stool:
--- NOTE | 2025-07-06 14:07 | CASEMGMT ---
Social Work SW phoned dtr to discuss DC plans. SW broached pt will likely need 24/7 care at DC d/t physical and cognitive assistance. Dtr voiced she is aware of the cognitive piece, but pt was functioning independently prior and cannot assist. Dtr stated her dtr and brother live next door and can assist. SW questioned if pt needs to get up to go to the bathroom, is she calling her son or granddtr to come assist? Dtr denied. SW reinforced pt needs that type of assistance and someone would need to be in the home to provide that type of care. SW educated to options of hiring assistance or increasing the assistance already in place from 3x/wk to daily, or SNF care. SW offered resources, if needed. SW did note that insurance update is 07/08 and undetermined if insurance approve more time, but if not, a DC plan will need to be better formulated. SW explained pt may continue to make progress and by the time of DC, pt may need less assistance, but currently, that is what IDT is recommending. SW inquired if dtr could attend Team tomorrow. Dtr agreed. SW encouraged dtr to process information and come with questions tomorrow. Dtr agreed. SW will continue to follow. Dipika Wilhelm EXTRACT OPERATOR LABOR RELATIONS ANALYST
[2025-07-06 17:10] VITALS: BP 131/73; PULSE 78; RESP 16; TEMP 36.4; O2SAT 94
[2025-07-06] MEDS: MELATONIN 3 MG TABLET PO (20:27)
[2025-07-06] MEDS: Senna/Docusate Sodium 1 Tablet PO (20:28)
[2025-07-07 05:14] VITALS: BP 130/70; PULSE 68; RESP 15; TEMP 36.9; O2SAT 95
[2025-07-07 07:16] VITALS: O2SAT 95
[2025-07-07] MEDS: Budesonide 3 MG CAPSULE.EC 6 MG PO (09:15)
[2025-07-07] MEDS: Senna/Docusate Sodium 1 Tablet PO ×2 (09:16→22:14)
[2025-07-07] MEDS: APIXABAN 5 MG TABLET PO ×2 (09:16→22:12)
[2025-07-07] MEDS: Polyethylene Glycol 3350 17 GM PACKET PO (09:16)
--- NOTE | 2025-07-07 13:00 | CASEMGMT ---
Social Work IDT met with patient, , dtr and son at bedside, then son via conference call for Team meeting. Discussed patient's progress in PT/OT/ST/SN/MD. [facility] and continued stay is not guaranteed with each review. IDT explained pt needs [facility] for transfers, mobility and ADLs. cannot provide this assistance. SW educated to options for private duty [facility] or [place] or SNF. Educated those options are an OOP cost. If pt cannot afford it, SW can determine Medicaid eligibility that could cover SNF stay. Educated to precert process with a SNF, but unlikely to approve after IRU stay. Family voiced they want pt to be at home. SW validated. Provided resources for private duty [employer], home delivered meals, medical alert, [place]. SW encouraged family to begin having conversations with [facility] to coordinate care for pt. SW to coordinate skilled HHC at [place]. Will ReTeam. As this worker was concluding the meeting when the team was exiting, another woman introduced herself as Ava from [facility] and requested clinicals to be faxed. Evidently, family invited this rep to the Team meeting. SW clarified that if pt elects hospice at [place], pt will not received skilled HHC. Dtr expressed understanding. Dtr asked Ava if they can provide aides. Ava stated they can provide daily aides to assist with personal care, but not exceeding that. They offer OOP aides or dtr can hire private duty aides. SW will send clinicals. Dipika HAROW
--- NOTE | 2025-07-07 14:56 | PCM.PROGNOTE ---
Subjective Subjective Brayan was seen on team rounds today. Family was present in the room and all their questions were answered to their satisfaction. Afebrile VSS - Maintaining appropriate oxygen saturation on RA Oral intake - FOOD very good FLUIDS sometimes good and sometimes not so good. She only took 1060 cc on Friday. Fluid balance was -90 that day. Weight is stable. Discussed with nursing - no problems that need addressed Reviewed the THERAPY notes Medication list reviewed. Brayan denies lightheadedness, vertigo, cephalgia, CP, SOB at rest, SOB with exertion, cough, nausea, vomiting, abd pain, diarrhea, constipation, heartburn, dysuria, calf pain and ankle swelling. Her hearing aids are not working and they are very old. They likely need replaced and I discussed this with her family. I also explained that the hearing loss contributes to confusion because often she does not hear what is being said to her. The BCAT was 28/50 on admission to rehab and when it was repeated she had an external hearing listening system and she scored 37/50. Objective Data Objective Data Vital Signs: Vital Signs Temp Pulse Resp BP Pulse Ox O2 Del Method O2 Flow Rate 98.4 F 68 15 130/70 H 95 Room Air 2 07/07/25 05:14 07/07/25 05:14 07/07/25 05:14 07/07/25 05:14 07/07/25 07:16 07/07/25 07:16 07/06/25 07:35 FiO2 21 06/29/25 22:15 Oxygen Flow Rate (L/min) 2 Oxygen Delivery Method Room Air Weight: 175 lb 14.862 oz Body Mass Index (BMI) 31.1 Intake & Output: Intake and Output for Last 24 Hours 07/05/25 07/06/25 07/07/25 23:59 23:59 23:59 Intake Total 1270 / 1270 1060 / 1060 512 / 512 Output Total 1275 / 1275 1150 / 1150 450 / 450 Balance -5 / -5 -90 / -90 62 / 62 Lab / Micro Data 07/04/25 05:26 07/04/25 05:26 Micro: Microbiology 06/29/25 08:20 Stool Stool Occult Blood (CHRISTOPHER) - Final Occult Blood Positive Physical Exam Const alert Resp clear to auscultation bilaterally Resp Narrative: No conversational dyspnea. Effort and Inspection: Negative for tachypneic Cardio regular rate, regular rhythm, no murmurs and no gallops Cardio Narrative: No ectopy. GI normal to inspection, nondistended, normoactive bowel sounds Extremity no calf tenderness General Extremity: Negative for edema Skin General Skin Exam: no breakdown Rashes: no rashes Assessment & Plan Assessment/Plan (1) Normal pressure hydrocephalus: (2) Chronic lumbar radiculopathy: (3) Debility: (4) S/P BUSINESS IMPROVEMENT MANAGER shunt: (5) Urinary retention with incomplete bladder emptying: (6) Abnormality of gait and mobility: (7) Obstructive sleep apnea: (8) Cerebral venous sinus thrombosis: (9) Chronic anticoagulation: (10) Collagenous colitis: (11) Anxiety and depression: (12) BPPV (benign paroxysmal positional vertigo): QUALIFIERS: Laterality: unspecified laterality Qualified Code(s): H81.10 - Benign paroxysmal vertigo, unspecified ear (13) Heme + stool: (14) Cognitive impairment: PLAN: Reportedly mild on previous documentation. Initial BCAT was 28/50. A second BCAT improved to 37 out of 50. Part of her problem with memory is that she cannot hear. PLAN: Plan 1. Continue therapy 2. Check an H&H and BMP on Friday 3. She is making progress with therapy.......... but is still needing more physical assistance than her is able to provide. Family is against going to a halfway facility or an ECF but they are open to hiring someone to come in and help. They are aware that at this point we are still recommending 24/7 supervision/assistance. Charges/Coding Visit Charges Inpatient E&M: 95847 Subs Hosp L2
[2025-07-07 18:00] VITALS: BP 104/57; PULSE 79; RESP 16; TEMP 37; O2SAT 95
[2025-07-07 22:00] VITALS: BP 117/90; PULSE 78; RESP 16; TEMP 37.1; O2SAT 97
[2025-07-07] MEDS: MELATONIN 3 MG TABLET PO (22:14)
[2025-07-08 05:44] VITALS: BP 119/66; PULSE 64; RESP 16; TEMP 37.1; O2SAT 91
[2025-07-08] MEDS: Budesonide 3 MG CAPSULE.EC 6 MG PO (08:15)
[2025-07-08] MEDS: Polyethylene Glycol 3350 17 GM PACKET PO (08:15)
[2025-07-08] MEDS: Senna/Docusate Sodium 1 Tablet PO (08:15)
[2025-07-08] MEDS: APIXABAN 5 MG TABLET PO ×2 (08:15→21:02)
[2025-07-08 18:00] VITALS: BP 126/74; PULSE 74; RESP 16; TEMP 37; O2SAT 94
[2025-07-08] MEDS: MELATONIN 3 MG TABLET PO (21:01)
[2025-07-09 05:00] VITALS: BMI 30.9
[2025-07-09 06:00] VITALS: BP 121/67; PULSE 70; RESP 18; TEMP 36.6; O2SAT 91
[2025-07-09] MEDS: Budesonide 3 MG CAPSULE.EC 6 MG PO (07:55)
[2025-07-09] MEDS: Polyethylene Glycol 3350 17 GM PACKET PO (07:55)
[2025-07-09] MEDS: APIXABAN 5 MG TABLET PO ×2 (07:55→20:04)
[2025-07-09] MEDS: Senna/Docusate Sodium 1 Tablet PO ×2 (07:55→20:05)
[2025-07-09 16:18] VITALS: BP 109/65; PULSE 79; RESP 16; TEMP 37.1; O2SAT 95
[2025-07-09] MEDS: MELATONIN 3 MG TABLET PO (20:04)
[2025-07-09 21:00] VITALS: O2SAT 94
[2025-07-10 06:00] VITALS: BP 113/63; PULSE 67; RESP 17; TEMP 36.6; O2SAT 91
[2025-07-10] MEDS: APIXABAN 5 MG TABLET PO ×2 (07:50→20:28)
[2025-07-10] MEDS: Senna/Docusate Sodium 1 Tablet PO (07:50)
[2025-07-10] MEDS: Polyethylene Glycol 3350 17 GM PACKET PO (07:50)
[2025-07-10] MEDS: Budesonide 3 MG CAPSULE.EC 6 MG PO (07:51)
[2025-07-10 16:43] VITALS: BP 122/74; PULSE 94; RESP 17; TEMP 36.6; O2SAT 96
[2025-07-10] MEDS: MELATONIN 3 MG TABLET PO (20:29)
[2025-07-11 06:02] VITALS: BP 106/68; PULSE 70; RESP 16; TEMP 37.1; O2SAT 94
--- NOTE | 2025-07-11 07:56 | PN_ITS ---
Subjective Subjective Afebrile VSS - Maintaining appropriate oxygen saturation on RA Oral intake - FOOD good FLUIDS fair to good Constipation has resolved Discussed with nursing - no problems that need addressed Reviewed the THERAPY notes Medication list reviewed. Brayan is requesting to be discharged home because her misses her. She has a depressed affect today. Laying in bed more........says it is because sitting in the chair too long makes her back hurt. She denies cephalgia, lightheadedness, cough, chest pain, shortness of breath, nausea/vomiting/abdominal pain, calf pain and suprapubic pain. Objective Data Objective Data Vital Signs: Vital Signs Temp Pulse Resp BP Pulse Ox O2 Del Method O2 Flow Rate 98.7 F 70 16 106/68 94 Room Air 2 07/11/25 06:02 07/11/25 06:02 07/11/25 06:02 07/11/25 06:02 07/11/25 06:02 07/11/25 06:02 07/09/25 21:00 FiO2 21 06/29/25 22:15 Oxygen Flow Rate (L/min) 2 Oxygen Delivery Method Room Air Weight: 174 lb 9 oz Body Mass Index (BMI) 30.9 Intake & Output: Intake and Output for Last 24 Hours 07/09/25 07/10/25 07/11/25 23:59 23:59 23:59 Intake Total 1145 / 1145 1510 / 1510 200 / 200 Output Total 1625 / 1625 1900 / 1900 250 / 250 Balance -480 / -480 -390 / -390 -50 / -50 Lab / Micro Data 07/04/25 05:26 07/04/25 05:26 Micro: Microbiology 06/29/25 08:20 Stool Stool Occult Blood (CHRISTOPHER) - Final Occult Blood Positive Physical Exam Const alert Constitutional Narrative: She has the external hearing device on and she is focused and responding appropriately to my questions. She is making good eye contact with me. General Appearance: cooperative HEENT Mouth: dry mucous membranes Resp normal respiratory effort and clear to auscultation bilaterally Resp Narrative: No conversational dyspnea. Effort and Inspection: Negative for tachypneic Cardio regular rate and regular rhythm Cardio Narrative: No ectopy. GI normal to inspection, nondistended, normoactive bowel sounds Extremity no calf tenderness General Extremity: Negative for edema Skin General Skin Exam: no breakdown Rashes: no rashes Psych Psych Narrative: Depressed affect but still eating very well and sleeping well at night. Not tearful today. Sad that she is not able to go home but when I explained things she understands that there is a much better chance that she will be able to be independent with a ADLs at home at discharge and not require 24/7 supervision. Making good eye contact with me when we talk and she is much better able to focus and is not repeating herself frequently. Her loss of hearing contributes greatly to her loss of cognition. did much better on the BCAT when she used the external hearing device. Appearance: appropriate Attitude: No agitated Activity / Motor Behavior: Negative for restless Assessment & Plan Assessment/Plan (1) Normal pressure hydrocephalus: (2) Chronic lumbar radiculopathy: (3) Debility: (4) S/P SENIOR APPLICATION PROGRAMMER shunt: (5) Urinary retention with incomplete bladder emptying: (6) Abnormality of gait and mobility: (7) Obstructive sleep apnea: (8) Cerebral venous sinus thrombosis: (9) Chronic anticoagulation: (10) Collagenous colitis: (11) Anxiety and depression: (12) BPPV (benign paroxysmal positional vertigo): QUALIFIERS: Laterality: unspecified laterality Qualified Code(s): H81.10 - Benign paroxysmal vertigo, unspecified ear (13) Heme + stool: (14) Cognitive impairment: PLAN: Plan 1. Continue therapy 2. CBC and BMP in the a.m. 3. Apply a lidocaine patch to the paravertebral area on both sides of the lumbar spine. 4. Encouraged her to get up in the chair at least with meals. Charges/Coding Visit Charges Inpatient E&M: 21001 Subs Hosp L1
[2025-07-11] MEDS: Budesonide 3 MG CAPSULE.EC 6 MG PO (08:21)
[2025-07-11] MEDS: APIXABAN 5 MG TABLET PO ×2 (08:21→21:08)
[2025-07-11] MEDS: Senna/Docusate Sodium 1 Tablet PO ×2 (08:21→21:08)
--- NOTE | 2025-07-11 09:34 | CASEMGMT ---
Social Work SW discussed with IDT that insurance will not issue DC date; IDT to set DC date. Medicare days through [employer] is 15 days. NRD with insurance is 07/15, d/t the holiday and weekend, IDT agreed upon DC 07/19. - SW phoned dtr to update that insurance approved through IDT's recommended DC 07/19. Dtr agreed to DC. SW confirmed family contacted [facility] and wants pt to DC home with his hospice. Dtr confirmed. SW explained since pt is discharging home with hospice, pt will use overnight O2 and not pursue sleep study. Hospice to provide O2 and any additional DME needed. SW inquired if dtr could transport and dtr agreed. SW to coordinate DC with hospice. Dtr appreciative. - SW sent referral to [facility] via [facility]. Plan: DC home with 07/19, [facility] Dipika Wilhelm MSW COMPENSATION AND BENEFITS ADVISOR
[2025-07-11] MEDS: Lidocaine 5% Patch 2 PATCH TOPICAL (11:14)
[2025-07-11 18:00] VITALS: BP 121/74; PULSE 79; RESP 16; TEMP 36.9; O2SAT 96
[2025-07-11 21:00] VITALS: PULSE 79; RESP 16; O2SAT 96
[2025-07-11] MEDS: MELATONIN 3 MG TABLET PO (21:08)
[2025-07-12 05:46] LABS: Hematocrit 34.9 % (37-47); Hemoglobin 11.6 g/dL (12.0-15.0); Mean Corp Hgb Conc 33.2 g/dL (32-36); Mean Corpuscular Volume 87.3 fL (81-99); Mean Platelet Vol. 10.0 fl (6.2-12.0); Platelet Count 176 K/mm3 (150-450); RBC Distribution Width CV 14.8 % (11.6-14.6); RBC Distribution Width SD 47.8 fl (35.1-43.9); Red Blood Count 4.00 M/mm3 (4.2-5.4); White Blood Count 5.1 K/mm3 (4.4-11.0)
[2025-07-12 06:00] VITALS: BP 123/64; PULSE 62; RESP 16; TEMP 36.9; O2SAT 95
[2025-07-12 06:23] LABS: Anion Gap 9 (7-18); BUN 13 mg/dL (4-19); BUN/Creat Ratio 15.9 RATIO (10-20); Calcium,Total 8.9 mg/dL (7.6-11.0); Carbon Dioxide 25.0 mmol/L (20.0-29.0); Chloride 106 mmol/L (96-106); Estimated Creatinine Clearance 53.61 ml/min (50-250); Glucose 90 mg/dL (70-99); Potassium 3.8 mmol/L (3.5-5.1)
[2025-07-12] MEDS: APIXABAN 5 MG TABLET PO ×2 (07:50→21:21)
[2025-07-12] MEDS: Senna/Docusate Sodium 1 Tablet PO ×2 (07:51→21:21)
[2025-07-12] MEDS: Budesonide 3 MG CAPSULE.EC 6 MG PO (07:52)
[2025-07-12] MEDS: Lidocaine 5% Patch 2 PATCH TOPICAL (07:52)
--- NOTE | 2025-07-12 13:47 | PCM.PROGNOTE ---
Subjective Subjective Afebrile Vital signs are stable and the blood pressure is under excellent control. Maintaining appropriate oxygen saturation on room air while awake. Wearing 2 L per nasal cannula while sleeping. Eating 75 to 100% of most of her meals. Fluid intake has improved over the past 3 days. Having regular bowel movements. The urine in the Damon tubing and bag is yellow and clear. Medication list was reviewed. No issues with nursing overnight. All lab drawn this morning was personally reviewed. The white blood cell count is normal at 5.1. Hemoglobin is stable at 11.6 and platelets are within normal limits. Sodium is 140 and the potassium is 3.8. Serum bicarb is normal and the BUN is 13 with a stable creatinine at 0.82. Calcium is within normal limits. Brayan has no complaints today. A 10 point review of systems was completed. She tells me she slept well last night. She is smiling today and cooperative. No tears today. Objective Data Objective Data Vital Signs: Vital Signs Temp Pulse Resp BP Pulse Ox O2 Del Method O2 Flow Rate 98.5 F 62 16 123/64 H 95 Room Air 2 07/12/25 06:00 07/12/25 06:00 07/12/25 06:00 07/12/25 06:00 07/12/25 06:00 07/12/25 07:06 07/09/25 21:00 FiO2 21 06/29/25 22:15 Oxygen Flow Rate (L/min) 2 Oxygen Delivery Method Room Air Weight: 174 lb 9 oz Body Mass Index (BMI) 30.9 Intake & Output: Intake and Output for Last 24 Hours 07/10/25 07/11/25 07/12/25 23:59 23:59 23:59 Intake Total 1510 / 1510 1390 / 1390 340 / 340 Output Total 1900 / 1900 1025 / 1025 300 / 300 Balance -390 / -390 365 / 365 40 / 40 Lab / Micro Data 07/12/25 05:29 07/12/25 05:29 Labs: Laboratory Results - last 24 hr 07/12/25 05:29: WBC 5.1, RBC 4.00 L, Hgb 11.6 L, Hct 34.9 L, MCV 87.3, MCH 29.0, MCHC 33.2, RDW Std Deviation 47.8 H, RDW Coeff of Gareth 14.8 H, Plt Count 176, MPV 10.0, Sodium 140, Potassium 3.8, Chloride 106, Carbon Dioxide 25.0, Anion Gap 9, BUN 13, Creatinine 0.82, Estim Creat Clear Calc 53.61, Est GFR (MDRD) Non-Af 72, BUN/Creatinine Ratio 15.9, Glucose 90, Calcium 8.9 Micro: Microbiology 06/29/25 08:20 Stool Stool Occult Blood (CHRISTOPHER) - Final Occult Blood Positive Physical Exam Const alert General Appearance: cooperative Resp normal respiratory effort and clear to auscultation bilaterally Cardio regular rate and regular rhythm Cardio Narrative: No ectopy. GI normal to inspection, nondistended, normoactive bowel sounds Extremity no calf tenderness General Extremity: Negative for edema Skin General Skin Exam: no breakdown Rashes: no rashes Assessment & Plan Assessment/Plan (1) Normal pressure hydrocephalus: (2) Chronic lumbar radiculopathy: (3) Debility: (4) S/P BUS VAN DRIVER shunt: (5) Urinary retention with incomplete bladder emptying: (6) Abnormality of gait and mobility: (7) Obstructive sleep apnea: (8) Cerebral venous sinus thrombosis: (9) Chronic anticoagulation: (10) Collagenous colitis: (11) Anxiety and depression: (12) BPPV (benign paroxysmal positional vertigo): QUALIFIERS: Laterality: unspecified laterality Qualified Code(s): H81.10 - Benign paroxysmal vertigo, unspecified ear (13) Heme + stool: (14) Cognitive impairment: PLAN: Plan 1. Continue therapy 2. Plan discharge on 07/19/2025 to home with hospice referral. 3. No changes to the drug regimen today. Continue the duloxetine at 60 mg daily. 4. Continue Protonix 40 mg twice daily for heme positive stool. Hemoglobin is stable. Charges/Coding Visit Charges Inpatient E&M: 69383 Init Hosp L1
[2025-07-12 18:00] VITALS: BP 126/69; PULSE 86; RESP 16; TEMP 36.7; O2SAT 94
[2025-07-12 21:00] VITALS: PULSE 86; RESP 16; O2SAT 94
[2025-07-12] MEDS: MELATONIN 3 MG TABLET PO (21:21)
[2025-07-13 05:54] VITALS: BP 120/68; PULSE 64; RESP 16; TEMP 36.8; O2SAT 91
[2025-07-13 06:03] VITALS: BMI 31.1
[2025-07-13] MEDS: APIXABAN 5 MG TABLET PO ×2 (07:56→20:58)
[2025-07-13] MEDS: Budesonide 3 MG CAPSULE.EC 6 MG PO (07:56)
[2025-07-13] MEDS: Senna/Docusate Sodium 1 Tablet PO (07:56)
--- NOTE | 2025-07-13 09:05 | PN_ITS ---
Subjective Subjective Afebrile Vital signs stable and the blood pressure is well-controlled Maintaining appropriate oxygen saturation on room air Good appetite and eating 75 to 100% of almost all her meals. Fair to good fluid intake. Having regular bowel movements Ambulating at [facility]. Yesterday she ambulated to the bathroom at contact-guard assist with a front wheel walker and was able to complete clothing management before sitting at contact-guard assist. She had a bowel movement and sit to stand from the toilet was at contact-guard assist. She completed her posterior [facility] at contact-guard assist.She has been requesting to ambulate more with therapy. 10 point ROS done and she has no complaints. Objective Data Objective Data Vital Signs: Vital Signs Temp Pulse Resp BP Pulse Ox O2 Del Method O2 Flow Rate 98.2 F 64 16 120/68 91 Room Air 2 07/13/25 05:54 07/13/25 05:54 07/13/25 05:54 07/13/25 05:54 07/13/25 05:54 07/13/25 07:17 07/09/25 21:00 FiO2 21 06/29/25 22:15 Oxygen Flow Rate (L/min) 2 Oxygen Delivery Method Room Air Weight: 176 lb 2.389 oz Body Mass Index (BMI) 31.1 Intake & Output: Intake and Output for Last 24 Hours 07/11/25 07/12/25 07/13/25 23:59 23:59 23:59 Intake Total 1390 / 1390 1162 / 1162 340 / 340 Output Total 1025 / 1025 1100 / 1100 300 / 300 Balance 365 / 365 62 / 62 40 / 40 Lab / Micro Data 07/12/25 05:29 07/12/25 05:29 Micro: Microbiology 06/29/25 08:20 Stool Stool Occult Blood (CHRISTOPHER) - Final Occult Blood Positive Physical Exam Const alert and oriented x3 Constitutional Narrative: Pleasant and talkative. Appropriate. Has the external hearing device on and is able to communicate well. Not repeating herself today. General Appearance: cooperative HEENT moist oral mucous membranes Resp normal respiratory effort and clear to auscultation bilaterally Resp Narrative: No conversational dyspnea. Effort and Inspection: Negative for tachypneic Cardio regular rate and regular rhythm Cardio Narrative: No ectopy. GI normal to inspection, nondistended, normoactive bowel sounds Extremity no calf tenderness General Extremity: Negative for edema Skin General Skin Exam: no breakdown Rashes: no rashes Neuro no focal motor deficits Speech: speech normal Psych Psych Narrative: More upbeat and not as flat and depressed today. Sleeping well at night and has a good appetite. Attitude: No agitated Activity / Motor Behavior: Negative for restless Assessment & Plan Assessment/Plan (1) Normal pressure hydrocephalus: (2) Chronic lumbar radiculopathy: (3) Debility: (4) S/P MEDIA MANAGER shunt: (5) Urinary retention with incomplete bladder emptying: (6) Abnormality of gait and mobility: (7) Cerebral venous sinus thrombosis: (8) Chronic anticoagulation: (9) Collagenous colitis: (10) Anxiety and depression: (11) BPPV (benign paroxysmal positional vertigo): QUALIFIERS: Laterality: unspecified laterality Qualified Code(s): H81.10 - Benign paroxysmal vertigo, unspecified ear (12) Heme + stool: (13) Cognitive impairment: PLAN: Plan 1. Continue therapy. 2. DC 07/19 to home with hospice. Charges/Coding Visit Charges Inpatient E&M: 17555 Subs Hosp L1
[2025-07-13 16:49] VITALS: BP 121/67; PULSE 83; RESP 18; TEMP 36.6; O2SAT 99
[2025-07-13] MEDS: MELATONIN 3 MG TABLET PO (20:58)
[2025-07-13 21:00] VITALS: PULSE 83; RESP 18; O2SAT 99
[2025-07-14 05:30] VITALS: BP 117/65; PULSE 64; RESP 16; TEMP 36.6; O2SAT 95
[2025-07-14] MEDS: Senna/Docusate Sodium 1 Tablet PO (08:12)
[2025-07-14] MEDS: Polyethylene Glycol 3350 17 GM PACKET PO (08:12)
[2025-07-14] MEDS: APIXABAN 5 MG TABLET PO ×2 (08:12→20:30)
[2025-07-14] MEDS: Budesonide 3 MG CAPSULE.EC 6 MG PO (08:12)
[2025-07-14 17:44] VITALS: BP 105/71; PULSE 86; RESP 16; TEMP 36.6; O2SAT 98
[2025-07-14] MEDS: MELATONIN 3 MG TABLET PO (20:30)
[2025-07-15 03:00] VITALS: O2SAT 98
[2025-07-15 06:00] VITALS: BP 140/70; PULSE 80; RESP 17; TEMP 36.6; O2SAT 96
[2025-07-15] MEDS: Senna/Docusate Sodium 1 Tablet PO ×2 (08:49→20:39)
[2025-07-15] MEDS: APIXABAN 5 MG TABLET PO ×2 (08:49→20:39)
[2025-07-15] MEDS: Budesonide 3 MG CAPSULE.EC 6 MG PO (08:49)
[2025-07-15] MEDS: Polyethylene Glycol 3350 17 GM PACKET PO (08:50)
--- NOTE | 2025-07-15 12:16 | PN_ITS ---
Subjective Subjective Tuula was seen on team rounds today. Afebrile VSS - Maintaining appropriate oxygen saturation on RA Oral intake - FOOD good FLUIDS good Discussed with nursing - no problems that need addressed Reviewed the THERAPY notes Medication list reviewed. Denies headache, lightheadedness, shortness of breath, cough, chest pain, nausea/vomiting, constipation and calf pain. Objective Data Objective Data Vital Signs: Vital Signs Temp Pulse Resp BP Pulse Ox O2 Del Method O2 Flow Rate 97.8 F 80 17 140/70 H 96 Room Air 2 07/15/25 06:00 07/15/25 06:00 07/15/25 06:00 07/15/25 06:00 07/15/25 06:00 07/15/25 06:00 07/15/25 03:00 FiO2 21 06/29/25 22:15 Oxygen Flow Rate (L/min) 2 Oxygen Delivery Method Room Air Weight: 176 lb 2.389 oz Body Mass Index (BMI) 31.1 Intake & Output: Intake and Output for Last 24 Hours 07/13/25 07/14/25 07/15/25 23:59 23:59 23:59 Intake Total 1700 / 1700 1989 440 / 440 Output Total 1475 / 1475 1575 / 1575 900 / 900 Balance 225 / 225 415 / 415 -460 / -460 Lab / Micro Data 07/12/25 05:29 07/12/25 05:29 Micro: Microbiology 06/29/25 08:20 Stool Stool Occult Blood (CHRISTOPHER) - Final Occult Blood Positive Physical Exam Const alert General Appearance: cooperative Resp normal respiratory effort and clear to auscultation bilaterally Cardio regular rate and regular rhythm Cardio Narrative: No ectopy. GI normal to inspection, nondistended, normoactive bowel sounds Extremity no calf tenderness General Extremity: Negative for edema Skin General Skin Exam: no breakdown Rashes: no rashes Assessment & Plan Assessment/Plan (1) Normal pressure hydrocephalus: (2) Chronic lumbar radiculopathy: (3) Debility: (4) S/P WORKERS COMPENSATION ADMINISTRATOR shunt: (5) Urinary retention with incomplete bladder emptying: (6) Abnormality of gait and mobility: (7) Obstructive sleep apnea: (8) Cerebral venous sinus thrombosis: (9) Chronic anticoagulation: (10) Collagenous colitis: (11) Anxiety and depression: (12) BPPV (benign paroxysmal positional vertigo): QUALIFIERS: Laterality: unspecified laterality Qualified Code(s): H81.10 - Benign paroxysmal vertigo, unspecified ear (13) Heme + stool: (14) Cognitive impairment: PLAN: Plan 1. Continue therapy 2. Discharge home on 07/19/2025 - She is going home with hospice......I do not know what diagnosis is being used to qualify her for hospice? Family arranged for this. Her Richard is home with her but, he also has cognitive dysfunction. He got lost in the hospital and did not know where he was and then security had to help him find his car. Some one will need to help with emptying the Damon, managing the medications, giving her voice cues when walking to draft roller picker the Damon bag and how to use the WW properly. I think she really needs to have close supervision. Family has already purchased an external listening device until she can get new hearing aids. 3. will have her follow up with Dr. Damon post DC for urine retention. Dtr wanted her on Methenamine to help prevent UTI's because she gets frequent UTI's........this was likely due to chronic urine retention since she quit self cath'ing. Urine is clear. I will defer using this medication to Dr. damon. I do not see the need to add yet another med at this time, tariq since the urine is clear and she is AF and asymptomatic. Charges/Coding Visit Charges Inpatient E&M: 38921 Subs Hosp L2
--- NOTE | 2025-07-15 13:02 | CASEMGMT ---
Social Work Team meeting held with pt, pt's spouse, son and dgt present and additional dgt and son on speaker phone. PT/OT/ST/SN/MD provided updates on pt's progress over the last week while in the rehab unit. SW updated pt and family that DC date has been set for 07/19. Plan is to discharge home with [facility]. Pt lives with her and will return home with him. Pt and family are in agreement with this discharge plan. LEONORA will reach out to hospice on Friday and finalize dc plans. SURJIT Tinajero
[2025-07-15 18:00] VITALS: BP 117/69; PULSE 85; RESP 17; TEMP 36.6; O2SAT 97
[2025-07-15] MEDS: MELATONIN 3 MG TABLET PO (20:39)
[2025-07-16] VITALS: RESP 18; O2SAT 92
[2025-07-16 05:10] VITALS: BP 138/62; PULSE 80; RESP 17; TEMP 36.6; O2SAT 93
[2025-07-16 06:00] VITALS: BMI 31.2
[2025-07-16] MEDS: APIXABAN 5 MG TABLET PO ×2 (08:40→20:26)
[2025-07-16] MEDS: Budesonide 3 MG CAPSULE.EC 6 MG PO (08:40)
[2025-07-16 18:00] VITALS: BP 135/73; PULSE 91; RESP 17; TEMP 36.6; O2SAT 95
[2025-07-16] MEDS: Senna/Docusate Sodium 1 Tablet PO (20:27)
[2025-07-16] MEDS: MELATONIN 3 MG TABLET PO (20:27)
[2025-07-17] VITALS: O2SAT 94
[2025-07-17 05:54] VITALS: BP 139/78; PULSE 67; RESP 16; TEMP 36.8; O2SAT 92
--- NOTE | 2025-07-17 07:09 | NURSING ---
Pt educated last evening and this morning on catheter care. She is having trouble unclamping benson bag to empty. Pt is independent in catheter care and washing gonzález area and around catheter.
[2025-07-17] MEDS: APIXABAN 5 MG TABLET PO ×2 (08:32→20:45)
[2025-07-17] MEDS: Senna/Docusate Sodium 1 Tablet PO ×2 (08:32→20:51)
[2025-07-17] MEDS: Budesonide 3 MG CAPSULE.EC 6 MG PO (08:32)
[2025-07-17] MEDS: Polyethylene Glycol 3350 17 GM PACKET PO (08:33)
[2025-07-17 18:00] VITALS: BP 129/61; PULSE 81; RESP 16; TEMP 37
[2025-07-17 20:30] VITALS: BP 108/65; PULSE 77; RESP 16; TEMP 36.8; O2SAT 94
[2025-07-17] MEDS: MELATONIN 3 MG TABLET PO (20:46)
[2025-07-17 20:54] VITALS: PULSE 82; O2SAT 96
[2025-07-18 06:00] VITALS: BP 125/70; PULSE 67; RESP 16; TEMP 36.7; O2SAT 94
--- NOTE | 2025-07-18 09:00 | PCM.PROGNOTE ---
Subjective Subjective Afebrile VSS -blood pressure is well-controlled and heart rate is within normal limits. Maintaining appropriate oxygen saturation on RA Oral intake - FOOD good FLUIDS good Discussed with nursing - no problems that need addressed Reviewed the THERAPY notes Medication list reviewed. I reviewed the overnight trending pulse ox. There were no desaturation events. The pulse ox ranged from 83 to 89% for a total of 52 seconds. No need for home O2. Urine in the benson bag and tubing is clear. Tuula denies lightheadedness, cephalgia, shortness of breath, cough, chest pain, nausea/vomiting/abdominal pain and calf pain. She is afebrile. Denies flank pain. Urine in the Benson bag is clear. Objective Data Objective Data Vital Signs: Vital Signs Temp Pulse Resp BP Pulse Ox O2 Del Method O2 Flow Rate 98.0 F 67 16 125/70 H 94 Room Air 0 07/18/25 06:00 07/18/25 06:00 07/18/25 06:00 07/18/25 06:00 07/18/25 06:00 07/18/25 06:00 07/17/25 20:54 FiO2 21 07/17/25 20:54 Oxygen Flow Rate (L/min) 0 Oxygen Delivery Method Room Air Weight: 176 lb 8 oz Body Mass Index (BMI) 31.2 Intake & Output: Intake and Output for Last 24 Hours 07/16/25 07/17/25 07/18/25 23:59 23:59 23:59 Intake Total 970 / 970 1730 / 1880 300 / 300 Output Total 725 / 1225 1999 / 1999 350 / 350 Balance 245 / -255 -270 / -120 -50 / -50 Lab / Micro Data 07/12/25 05:29 07/12/25 05:29 Micro: Microbiology 06/29/25 08:20 Stool Stool Occult Blood (CHRISTOPHER) - Final Occult Blood Positive Physical Exam Const alert General Appearance: cooperative Resp normal respiratory effort and clear to auscultation bilaterally Cardio regular rate and regular rhythm Cardio Narrative: No ectopy. GI normal to inspection, nondistended, normoactive bowel sounds Extremity no calf tenderness General Extremity: Negative for edema Skin General Skin Exam: no breakdown Rashes: no rashes Assessment & Plan Assessment/Plan (1) Normal pressure hydrocephalus: (2) Chronic lumbar radiculopathy: (3) Debility: (4) S/P CERTIFIED ALCOHOL COUNSELOR shunt: (5) Urinary retention with incomplete bladder emptying: (6) Abnormality of gait and mobility: (7) Cerebral venous sinus thrombosis: (8) Chronic anticoagulation: (9) Collagenous colitis: (10) Anxiety and depression: (11) BPPV (benign paroxysmal positional vertigo): QUALIFIERS: Laterality: unspecified laterality Qualified Code(s): H81.10 - Benign paroxysmal vertigo, unspecified ear (12) Heme + stool: (13) Cognitive impairment: PLAN: Plan 1. Continue therapy 2. Plan discharge home with hospice tomorrow. Hospice was arranged by her family and not initiated by me. 3. Check a UA today and if there are white blood cells we will order a urine culture. 4. No need for home oxygen. Charges/Coding Visit Charges Inpatient E&M: 15519 Subs Hosp L1
[2025-07-18] MEDS: Budesonide 3 MG CAPSULE.EC 6 MG PO (09:12)
[2025-07-18] MEDS: APIXABAN 5 MG TABLET PO ×2 (09:12→21:19)
[2025-07-18 11:13] LABS: Mucous, Urine 0 SEEN /hpf (<or=2+); Red Blood Cells-Urine 0 SEEN /hpf (0-5)
[2025-07-18 11:33] LABS: Color, Urine Yellow (Yellow); Glucose, Dipstick Normal (Normal); Ketone-Dipstick Negative (Negative); Leukocyte Esterase-Dipstick 500 /ul (Negative); Nitrite-Dipstick Negative (Negative); Occult Blood-Urine 50 /ul (Negative); Protein-Dipstick 15 mg/dl (Negative); Specific Gravity, Urine 1.010 (1.002-1.030); Urine Bilirubin Dipstick Negative (Negative)
[2025-07-18 11:54] LABS: Squamous Epithelial Cells - UA 0-5 SEEN /hpf (5-10)
--- NOTE | 2025-07-18 14:19 | PCM.DC ---
Discharge Instructions DC O2, CPAP, BIPAP needs Home O2 Discharge instructions: No Dressing / Incision Discharge Activity: May Not Drive, May Not Shower and Use Walker Weight Bearing Status: Full weight bearing Dressing / Incision Call your doctor if you observe: Fever of 101 or Higher, Inability to have a bowel movement, Shortness of breath, Dizziness, Fainting spells, Chest pain, Increased palpitations (irregular heartbeat), Calf discomfort and - (recurrent headache, bleeding from the nose or rectum or vagina, blood in the urine, large bruises. STROKE symptoms: facial droop, slurred speech, inability to get words out, weakness on 1 side of the body and not the other, numbness on 1 side of the body and not the other, inability to maintain yo) Catheter: Damon to large bag Follow Up Care Please Follow Up With: Renan Fishman MD When: appts have been made for you and they are listed elsewhere in this document. Test Results: Test results from this visit will be discussed in further detail at your follow-up appointment, if applicable. Pending Tests Upon Discharge: urine culture Discharge Plan Admission Admit Date/Time: 06/27/25 19:38 Primary Reason for Your Visit: BL venous sinus thrombosis Attending Provider: Montserrat Lyles Primary Care Provider: Renan Fishman Instructions Additional Instructions / Restrictions: 1. If you have recurrent severe headache call your PCP or go to the ED. If you have any stroke symptoms go to the ER. IF you have blood in your urine, bleeding from the nose, bleeding from the vagina, bleeding from the rectum or large areas of bruising call your PCP. 2. You have blood clots in the veins in your head. The blood thinner (Apixaban, also called Eliquis) prevents the clots from getting better. You body will dissolve the clots in the brain over 3-6 months. Do not stop taking the blood thinner UNLESS your doctor tells you to stop it. 3. Your hearing aids do not work. When you can not hear what is being said to you and you answer questions inappropriately because you did not hear the question people think you are confused. When we use the external hearing device (headphones) on you your score on the cognitive testing is significantly better. Your family is getting you an external hearing device. Always wear this when you are talking with someone until you can get new hearing aids. 4. We increased the dose of the antidepressant you were taking to 60 mg daily because you got very depressed because you could not go home right away. You will be taking 60 mg of Cymbalta (also called Duloxetine) at [place]. Take this medication in the morning. 5. You MUST leave the Damon catheter in. We tried taking it out and you were not able to urinate. If you take it out you will be at risk for kidney failure and increased urinary tract infections. 6. If you or your family have any questions after you leave rehab please do not hesitate to call me. OFFICE: [phone] CELL: [phone] NURSES STATION ON REHAB: [phone] Discharge Orders/Prescriptions Prescriptions: New acetaminophen 325 mg Tablet 650 mg PO Q6H PRN PRN (Reason: Pain Score 1-10) Qty: 1 0RF sennosides-docusate sodium [Stimulant Laxative Plus] 8.6-50 mg Tablet 1 tab PO BID Qty: 60 0RF budesonide 3 mg Capsule,Delayed,Extend.Release 6 mg PO DAILY Qty: 30 0RF duloxetine 60 mg Capsule,Delayed Release(Dr/Ec) 60 mg PO DAILY Qty: 30 0RF Continued rosuvastatin 5 mg tablet 5 mg PO QHS multivitamin with folic acid 1 TABLET tablet 1 tab PO DAILY Patient Comments: vitamin supplement melatonin 5 mg Tablet 5 mg PO QHS Eliquis 5 mg tablet 5 mg PO BID Qty: 60 0RF omeprazole 40 mg capsule,delayed release(DR/EC) 40 mg PO DAILY Qty: 30 11RF Patient Comments: TAKE 1 CAPSULE BY MOUTH ONCE DAILY Changed meclizine 12.5 mg tablet 12.5 mg PO TID PRN (Reason: nausea/vomiting/diarrhea) Qty: 30 0RF Discontinued duloxetine [Cymbalta] 30 MG capsule 30 mg PO DAILY tamsulosin 0.4 mg capsule 0.4 mg PO QHS Qty: 30 1RF No Action (DME) Disability Placard See Rx Instructions .Route .MEDSUPPLY Qty: 1 0RF Rx Instructions: Expiration: 07/10/2025 (DME) Stairlift See Rx Instructions .Route .MEDSUPPLY Qty: 1 0RF Rx Instructions: Stairlift needed for Brayan Suggs, Date of : 41, [place] Customer Number: [id number] Referrals / Follow Up: Sharron Londono [Other, Hematology & Oncology] - 08/12/25 10:15 am Clara Hawkins [Other, Neurology] - 08/04/25 1:20 pm Renan Fishman MD [Primary Care Provider, Family Practice] - 08/01/25 2:40 pm Lourdes Dave MD [Med Staff - Active Staff, Urology] - 08/15/25 2:20 pm Referral Note: Disposition Disposition (needs filled in before D/C Order can be placed): Hospice in Home
--- NOTE | 2025-07-18 16:18 | CASEMGMT ---
Social Work- SW met with pt to complete MDS, IRFPAI, and sign MCR letter. Pt scored 13/15 on BIMS and 0/2 on PHQ9. Pt was complimentary of care received while at [facility]. Pt reports no concerns or needs at this time. Pt is agreeable to d/c tomorrow. SURJIT Maurice
--- NOTE | 2025-07-18 17:00 | NURSING ---
pt educated on catheter care and emptying catheter. pt demonstrated empting catheter without difficulty.
[2025-07-18 18:00] VITALS: BP 120/68; PULSE 70; RESP 17; TEMP 36.6; O2SAT 96
[2025-07-18 21:15] VITALS: PULSE 70; RESP 17; O2SAT 96
[2025-07-18] MEDS: MELATONIN 3 MG TABLET PO (21:19)
[2025-07-19 05:45] VITALS: BP 110/65; PULSE 68; RESP 18; TEMP 36.3; O2SAT 98
[2025-07-19 06:00] VITALS: BMI 31.4
--- NOTE | 2025-07-19 08:58 | DS.PCM_ITS ---
Providers Date of Admission: 06/27/25 Date of Discharge: 07/19/25 Primary Care Physician: Renan Fishman MD none Reason For Visit: DEBILITY due to BL venous sinus thrombosis Diagnosis Discharge Diagnosis (1) Debility: Status: Acute Code(s): R53.81 - Other malaise (2) Cerebral venous sinus thrombosis: Status: Acute Code(s): G08 - Intracranial and intraspinal phlebitis and thrombophlebitis (3) Cognitive impairment: Status: Acute Code(s): R41.89 - Other symptoms and signs involving cognitive functions and awareness Plan: Previously diagnosed with mild cognitive deficits. This is exacerbated by the bilateral venous sinus thrombosis. Part of the low score on the initial BCAT (28/50) is she can not hear and her hearing aids do not work. BCAT was repeated later in the admission with an external hearing device in place and she scored 37/50. Family purchased an external hearing device and they will look into getting new hearing aids. (4) Chronic anticoagulation: Status: Chronic Code(s): Z79.01 - [facility] (current) use of anticoagulants Plan: She is being discharged on apixaban 5 mg twice daily. Hemoglobin is 11.6 prior to discharge and stable. (5) Normal pressure hydrocephalus: Status: Chronic Code(s): G91.2 - (Idiopathic) normal pressure hydrocephalus (6) S/P FLOORING MECHANIC shunt: Status: Chronic Code(s): Z98.2 - Presence of cerebrospinal fluid drainage device Plan: Determined to be working well at previous hospital. (7) Urinary retention with incomplete bladder emptying: Status: Chronic Code(s): R33.9 - Retention of urine, unspecified Plan: She has seen urology in the past and she was to be straight cath'ing at home. She did this for a while and then just quit. She was placed on Flomax at the previous hospital. A voiding trial was done on rehab and she was unable to void at all. The Damon was reinserted and Flomax was discontinued. I suspect she has neurogenic bladder related to NPH. She will follow up with Dr. Dave as an OP. She was discharged with a Damon catheter. 1 day prior to DC from rehab the Damon was changed out and a UA was sent. The urine was nitrite negative. There was 0 RBCs and 10-25 WBCs. There was 1+ bacteria. A urine culture is pending at the time of DC. She is asymptomatic and the urine is clear. I will call her to discuss the results of the urine culture and prescribe an antibiotic if needed when the results are available. (8) Chronic lumbar radiculopathy: Status: Chronic Code(s): M54.16 - Radiculopathy, lumbar region Plan: Stable and denies back pain and radicular pain at DC from rehab. (9) Abnormality of gait and mobility: Status: Chronic Code(s): R26.9 - Unspecified abnormalities of gait and mobility (10) Collagenous colitis: Status: Chronic Code(s): K52.831 - Collagenous colitis Plan: Will continue on Budesonide. follow up with GI PRN. She had a heme + stool........may have been due to hemorrhoids.......she was very constipated at admission to rehab and was straining to have a BM. Stool softeners and laxatives were prescribed and BM's are regular at the time of discharge. HGB is stable. (11) Anxiety and depression: Status: Chronic Code(s): F41.9 - Anxiety disorder, unspecified; F32.9 - Major depressive disorder, single episode, unspecified Plan: Previously on duloxetine 30 mg daily. Increased to 60 mg daily while on rehab due to depression over prolonged admission and her desire to go home to her . (12) BPPV (benign paroxysmal positional vertigo): Status: Chronic Code(s): H81.10 - Benign paroxysmal vertigo, unspecified ear Qualifiers: Laterality: unspecified laterality Qualified Code(s): H81.10 - Benign paroxysmal vertigo, unspecified ear Plan: Did not use any Meclizine while on rehab and did not c/o vertigo. (13) Heme + stool: Status: Acute Code(s): R19.5 - Other fecal abnormalities (14) Obstipation: Status: Resolved Code(s): K59.00 - Constipation, unspecified Plan: Present at admission. resolved after stool softeners and laxatives. Going home on senna/docusate 1 tab BID. Reminded her to keep he fluid intake up. (15) Obstructive sleep apnea: Status: Chronic Code(s): G47.33 - Obstructive sleep apnea (adult) (pediatric) Plan: Not sure how this diagnosis was made. The sleep study she had at [facility] was negative? she had an overnight trending pulse ox at admission to rehab that was abnormal and she was placed on O2 supplementation while sleeping. Prior to DC another overnight trending pulse ox was done on RA and she had no desaturation events. The O2 sat was abnormal for only 52 seconds and it only dropped to the high 80's. She was not discharged on home O2. (16) Hearing loss: Status: Chronic Code(s): H91.90 - Unspecified hearing loss, unspecified ear Qualifiers: Hearing loss type: unspecified Laterality: bilateral Qualified Code(s): H91.93 - Unspecified hearing loss, bilateral Plan 1. Discharge home with hospice - referral made by the family. 2. DC with a Damon catheter. Follow up with Dr. Dave if desired. Failed voiding trial on Flomax so it was discontinued. Brayan had stopped straight cath'ing herself quite some time ago and was having frequent UTI's. 3. UA prior to DC with 10-25 WBC's. Urine culture is pending at DC. I will call Brayan/family when the results are available. 4. Heme + stool at admission . HGB is stable. suspect this may have been due to hemorrhoids.......she was very constipated at admission to rehab. 5. Continue Budesonide for collagenous colitis. I do not think she was taking this at admission to rehab...........she was restarted while on rehab and we have not had any bowel issues. 6. Appts were scheduled for Brayan prior to her DC and are listed elsewhere in this document. 7. Prescriptions were faxed to [facility] for new medications. Medications at Discharge Home Medications multivitamin with folic acid 400 mcg tablet 1 tab PO DAILY supplement 10/13/14 melatonin 5 mg tablet 5 mg PO QHS SLEEP 05/23/21 rosuvastatin 5 mg tablet 5 mg PO QHS CHOLESTEROL 11/01/21 Disability Placard #1 ea 07/10/22 Stairlift #1 ea 07/10/22 omeprazole 40 mg capsule,delayed release 40 mg PO DAILY GERD #30 caps 07/12/24 acetaminophen 325 mg tablet 650 mg (2 x 325 mg) PO Q6H PRN PRN Pain Score 1-10 #1 TAB 07/18/25 apixaban 5 mg tablet (Eliquis) 5 mg PO BID DVT prophylaxis #60 tabs 07/18/25 budesonide 3 mg capsule,delayed,extended release 6 mg (2 x 3 mg) PO DAILY #30 ea 07/18/25 duloxetine 60 mg capsule,delayed release 60 mg PO DAILY #30 caps 07/18/25 meclizine 12.5 mg tablet 12.5 mg PO TID PRN nausea/vomiting/diarrhea #30 tabs 07/18/25 sennosides 8.6 mg-docusate sodium 50 mg tablet (Stimulant Laxative Plus) 1 tab PO BID #60 tabs 07/18/25 Hospital Course Operations None Procedures None Summary of Care Provided Minutes Spent on Discharge: 50 Hospital Course: Brayan Suggs is an 79-year-old female with a past medical history of normal pressure hydrocephalus (status post FLOORING MECHANIC shunt), hypertension, hyperlipidemia, GERD, irritable bowel syndrome, collagenous colitis, chronic urinary retention, [facility] (only 1 sleep study in the past...at [facility] and it was negative for [facility]), left ventricular hypertrophy, stage I diastolic dysfunction, severe hearing loss (has hearing aids but, they do not work) and mild cognitive deficit. She was in rehab at [facility] for vertigo and she had been started on Bactrim for a UTI. She was readmitted to [facility] on 06/20/25 for lightheadedness, cephalgia, visual disturbances, right facial pain and diarrhea. A CTA of the head and neck showed possible right internal jugular venous thrombosis and an MRI was ordered. The MRI showed bilateral venous sinus thrombosis. She was started on a heparin drip and transferred to a tertiary hospital where she saw neurology and neurosurgery. the FLOORING MECHANIC shunt was found to be working well. She was diagnosed with urine retention and a Damon was inserted. She had been diagnosed in the past with urine retention and she was supposed to be regularly straight cath'ing at home.......she had stopped doing this quite some time ago. She was started on Flomax. She was eventually transitioned to Eliquis. She was transferred to [facility] on 06/27/2025 for 3 hours of therapy daily to restore function/independence at or near her level prior to recent events. She was transferred with a Damon and on Flomax. PT/ST/OT were ordered at admission to acute rehab. Speech therapy performed a BCAT (brief cognitive assessment tool) at admission and she scored a 28 out of a possible 58. This is indicative of severe cognitive dysfunction. The BCAT repeated at a later date with an external hearing device in place and she scored 37 out of a possible 50 indicating significant improvement. I suspect that cognition is greatly affected by moderate to severe hearing loss and nonfunctioning hearing aids. When she has the external hearing device on she is talkative, appropriate and able to follow commands and answer questions much better. Family has purchased an external hearing device for her and will look into obtaining new hearing aids. While on rehab Brayan became more depressed because she wanted to go home and her kept asking her to come home. She was on 30 mg of duloxetine at presentation to rehab and this was increased to 60 mg. She is tolerating 60 mg well. She is sleeping well and has a good appetite. She is appropriate and able to follow commands. She is no longer tearful. A voiding trial was done on rehab and she failed this. She had no urge to go and was retaining large amounts of urine. I suspect she has neurogenic bladder related to NPH in the past. The Damon was reinserted. A follow-up appointment was scheduled with Dr. Dave to discuss options. Patient was previously straight cathing but she stopped this on her own and had not done this for quite some time prior to admission to [facility]. Brayan had a positive Hemoccult stool while on rehab. She was severely constipated when she arrived on rehab and was treated with stool softeners and various laxatives. I suspect the Hemoccult stool may have been related to hemorrhoids from straining. Her hemoglobin has been stable and at discharge it is 11.6. She had a gastroccult that was positive at the previous hospital. She was discharged on Omeprazole 40 mg daily. She denies N/V/abd pain at DC from rehab. Brayan did well on rehab. At the time of DC she is able to do 7 sit to stands in 30 seconds at contact-guard assist using her bilateral upper extremities to rise. She has ambulated 120 feet with a front wheeled walker at contact-guard assist on various surfaces. She is standby assist or contact- guard assist with going from sitting to standing and for stand pivot. She is supervision with bed mobility. She is able to ascend/descend three 4 inch steps x 2 to complete a total of 6 steps with 1 handrail going foot over foot at contact-guard assist. She is supervision/set up for eating, grooming, upper upper body dressing, toilet transfer and toileting. She is contact-guard assist for lower body dressing. She is standby assist for bathing and contact-guard assist for shower/tub transfer. 1 day prior to discharge the Damon catheter was changed out and the urine specimen was sent to the lab. It was nitrite negative and had 10-25 white blood cells per high-power field. The urine culture is pending at the time of discharge and when I get the results I will call Tuula/family to discuss. Several appointments were scheduled for Brayan prior to discharge and they are listed elsewhere in this document. She is being discharged with hospice that was arranged by her family. We are recommending 10/02 supervision and family is aware this. Weight / BMI Weight Weight: 177 lb 4.026 oz Body Mass Index (BMI) 31.4 ABG / Lab / Microbiology Data 07/12/25 05:29 07/12/25 05:29 Laboratory: Laboratory Results - last 24 hr 07/18/25 11:00: Urine Color Yellow, Urine Clarity Sl. Cloudy, Urine pH 6.5, Ur Specific Bouton 1.010, Urine Protein 15 H, Urine Glucose (UA) Normal, Urine Ketones Negative, Urine Occult Blood 50 H, Urine Nitrite Negative, Urine Bilirubin Negative, Urine Urobilinogen Normal, Ur Leukocyte Esterase 500 H, Urine RBC 0 SEEN, Urine WBC 10-25 SEEN, Ur Squamous Epith Cells 0-5 SEEN, Urine Bacteria 1+, Urine Mucus 0 SEEN Microbiology: Microbiology 06/29/25 08:20 Stool Stool Occult Blood (CHRISTOPHER) - Final Occult Blood Positive D/C Instructions Weight Bearing Status: Full weight bearing Call your doctor if you observe: Fever of 101 or Higher, Inability to have a bowel movement, Shortness of breath, Dizziness, Fainting spells, Chest pain, Increased palpitations (irregular heartbeat), Calf discomfort and - (recurrent headache, bleeding from the nose or rectum or vagina, blood in the urine, large bruises. STROKE symptoms: facial droop, slurred speech, inability to get words out, weakness on 1 side of the body and not the other, numbness on 1 side of the body and not the other, inability to maintain yo) Catheter: Damon to large bag DC O2, CPAP, BIPAP Needs Home O2 Discharge instructions: No Pending Tests Upon Discharge: urine culture Please Follow Up With: Renan Fishman MD When: appts have been made for you and they are listed elsewhere in this document. Meaningful Use Info Meaningful Use Meaningful Use Diagnoses (Choose all that apply): None applicable and VTE (Bilateral venous sinus thrombosis) VTE Anticoag overlap given w/in hospital stay or rx'd at dc?: No Pt receive overlap for 5 days?: No Reason overlap not ordered, prescribed, or given for 5 days: Treatment Not Indicated (She was started on a heparin drip at the previous hospital and then transition to Eliquis........ no overlap needed.) Discharge Plan Admission Admit Date/Time: 06/27/25 19:38 Primary Reason for Your Visit: BL venous sinus thrombosis Attending Provider: Montserrat Lyles Primary Care Provider: Renan Fishman Instructions Additional Instructions / Restrictions: 1. If you have recurrent severe headache call your PCP or go to the ED. If you have any stroke symptoms go to the ER. IF you have blood in your urine, bleeding from the nose, bleeding from the vagina, bleeding from the rectum or large areas of bruising call your PCP. 2. You have blood clots in the veins in your head. The blood thinner (Apixaban, also called Eliquis) prevents the clots from getting better. You body will dissolve the clots in the brain over 3-6 months. Do not stop taking the blood thinner UNLESS your doctor tells you to stop it. 3. Your hearing aids do not work. When you can not hear what is being said to you and you answer questions inappropriately because you did not hear the question people think you are confused. When we use the external hearing device (headphones) on you your score on the cognitive testing is significantly better. Your family is getting you an external hearing device. Always wear this when you are talking with someone until you can get new hearing aids. 4. We increased the dose of the antidepressant you were taking to 60 mg daily because you got very depressed because you could not go home right away. You will be taking 60 mg of Cymbalta (also called Duloxetine) at ID. Take this medication in the morning. 5. You MUST leave the Damon catheter in. We tried taking it out and you were not able to urinate. If you take it out you will be at risk for kidney failure and increased urinary tract infections. 6. If you or your family have any questions after you leave rehab please do not hesitate to call me. OFFICE: [phone] CELL: [phone] NURSES STATION ON REHAB: [phone] Discharge Orders/Prescriptions Prescriptions: New acetaminophen 325 mg Tablet 650 mg PO Q6H PRN PRN (Reason: Pain Score 1-10) Qty: 1 0RF sennosides-docusate sodium [Stimulant Laxative Plus] 8.6-50 mg Tablet 1 tab PO BID Qty: 60 0RF budesonide 3 mg Capsule,Delayed,Extend.Release 6 mg PO DAILY Qty: 30 0RF duloxetine 60 mg Capsule,Delayed Release(Dr/Ec) 60 mg PO DAILY Qty: 30 0RF Continued rosuvastatin 5 mg tablet 5 mg PO QHS multivitamin with folic acid 1 TABLET tablet 1 tab PO DAILY Patient Comments: vitamin supplement melatonin 5 mg Tablet 5 mg PO QHS Eliquis 5 mg tablet 5 mg PO BID Qty: 60 0RF omeprazole 40 mg capsule,delayed release(DR/EC) 40 mg PO DAILY Qty: 30 11RF Patient Comments: TAKE 1 CAPSULE BY MOUTH ONCE DAILY Changed meclizine 12.5 mg tablet 12.5 mg PO TID PRN (Reason: nausea/vomiting/diarrhea) Qty: 30 0RF Discontinued duloxetine [Cymbalta] 30 MG capsule 30 mg PO DAILY tamsulosin 0.4 mg capsule 0.4 mg PO QHS Qty: 30 1RF No Action (DME) Disability Placard See Rx Instructions .Route .MEDSUPPLY Qty: 1 0RF Rx Instructions: Expiration: 07/10/2025 (DME) Stairlift See Rx Instructions .Route .MEDSUPPLY Qty: 1 0RF Rx Instructions: Stairlift needed for Brayan Suggs, Date of : 41[place] Customer Number: [id number] Referrals / Follow Up: Sharron Londono [Other, Hematology & Oncology] - 08/12/25 10:15 am Clara Hawkins [Other, Neurology] - 08/04/25 1:20 pm Renan Fishman MD [Primary Care Provider, [facility]] - 08/01/25 2:40 pm Lourdes Dave MD [Med Staff - Active Staff, Urology] - 08/15/25 2:20 pm Referral Note: Disposition Disposition (needs filled in before D/C Order can be placed): Hospice in Home Charges/Coding Visit Charges Inpatient E&M: 09951 Disch Hosp >30min
[2025-07-19] MEDS: Budesonide 3 MG CAPSULE.EC 6 MG PO (09:43)
[2025-07-19] MEDS: APIXABAN 5 MG TABLET PO (09:43)
--- NOTE | 2025-07-19 10:02 | NURSING ---
education on catheter care and emptying continues. pt voices understanding and denies questions or concerns
--- NOTE | 2025-07-19 13:08 | CASEMGMT ---
Social Work DC summary and instructions sent via [facility] to [facility]. DC DATE: 07/19 DC DISPOSITION: Home with [facility] SURJIT Tinajero
--- NOTE | 2025-07-19 13:53 | NURSING ---
discharged home with family. discharge instructions, medications and appointments reviewed with family and pt. denies questions or concerns
[2025-07-19 13:54] VITALS: BP 110/65; PULSE 68; RESP 18; TEMP 36.3; O2SAT 98
== END 2025-07-19 13:56 | disposition hospice, home (50) | DRG 299 ==
PROVIDERS: Nurse Practitioner Family; Admitting Provider Internal Medicine; PCP Family Medicine; Visit Provider Internal Medicine
DX: I82.C11 Acute embolism and thrombosis of right internal jugular vein (principal); G08 Intracranial and intraspinal phlebitis and thrombophlebitis; G91.2 (Idiopathic) normal pressure hydrocephalus; F32.9 Major depressive disorder, single episode, unspecified; I10 Essential (primary) hypertension; G47.33 Obstructive sleep apnea (adult) (pediatric); K52.831 Collagenous colitis; K59.04 Chronic idiopathic constipation; H81.10 Benign paroxysmal vertigo, unspecified ear; F41.9 Anxiety disorder, unspecified; M54.16 Radiculopathy, lumbar region; H53.9 Unspecified visual disturbance; E78.5 Hyperlipidemia, unspecified; Z79.01 Long term (current) use of anticoagulants; R33.9 Retention of urine, unspecified; N31.9 Neuromuscular dysfunction of bladder, unspecified; R41.89 Other symptoms and signs involving cognitive functions and awareness; Z79.51 Long term (current) use of inhaled steroids; H91.93 Unspecified hearing loss, bilateral; Z98.2 Presence of cerebrospinal fluid drainage device; Z79.899 Other long term (current) drug therapy; Z91.148 Patient's other noncompliance with medication regimen for other reason
CPT/HCPCS: 36415; 74018; 80048; 80053; 81001; 82274; 83735; 84100; 85014; 85018; 85027; 87077; 87086; 87088; 87186; 92507; 92523; 94668; 94762; 97110; 97112; 97116; 97129; 97130; 97162; 97167; 97530; 97535; 97802